=== PATIENT | male | born 1945 | race Caucasian/White ===

== ENCOUNTER 2019-04-18 13:38 | Outpatient (CLI) | payer MEDICARE, SELFPAY ==
--- NOTE | 2019-04-18 | ECHO_ITS ---
Patient Info Name: Marcos Echeverria Age: 73 years : 1945 Gender: Male Ht: 68 in Wt: 200 lbs BSA: 2.11 m2 HR: 88 bpm BP: 123 / 87 mmHg Technical Quality: Good Exam Date: 04/18/2019 2:16 PM Exam Location: [facility] Pulmonary Patient Status: Outpatient Admit Date: 04/18/2019 Staff Ordering Physician: Yunier Domingo DO Product Craftsman: Wai Roque RDCS, RT Attending Provider: Yunier Domingo DO Referring Physician: Jose L ESTRADA; Exam Type: CA echo doppler color flow Study Info Indications I34.0 - Nonrheumatic mitral (valve) insufficiency Complete two-dimensional, color flow and Doppler transthoracic echocardiogram is performed. Summary 1. Left ventricular chamber dimension is normal. 2. Left ventricular systolic function is normal, estimated at 55-60%. 3. There is mildly increased left ventricular wall thickness. 4. The left ventricular diastolic function is indeterminate. 5. Tissue doppler is not performed. 6. Patient is probably in atrial fibrillation. 7. Left atrial chamber dimension is moderately enlarged. 8. Right atrial chamber dimension is moderately enlarged. 9. There is mild aortic valve sclerosis. 10. There is mild aortic valve regurgitation. 11. There is moderate to severe mitral valve regurgitation. 12. There is mild to moderate tricuspid valve regurgitation. 13. No pulmonary hypertension, estimated pulmonary arterial systolic pressure is 31 mmHg. 14. There is mild pulmonic regurgitation. 15. The aortic root size at the sinus of Valsalva is moderately dilated at 4.5 cm. Left Ventricle Patient is probably in atrial fibrillation. Tissue doppler is not performed. Left ventricular chamber dimension is normal. Left ventricular systolic function is normal, estimated at 55-60%. There is mildly increased left ventricular wall thickness. The left ventricular diastolic function is indeterminate. Right Ventricle Right ventricular chamber dimension is normal. Right ventricular systolic function is normal. Left Atria Left atrial chamber dimension is moderately enlarged. Right Atria Right atrial chamber dimension is moderately enlarged. Aortic Valve The aortic valve is trileaflet. There is mild aortic valve sclerosis. There is no aortic valve stenosis. There is mild aortic valve regurgitation. Pulmonic Valve There is mild pulmonic regurgitation. Mitral Valve There is no mitral valve stenosis. There is moderate to severe mitral valve regurgitation. Tricuspid Valve There is mild to moderate tricuspid valve regurgitation. No pulmonary hypertension, estimated pulmonary arterial systolic pressure is 31 mmHg. Pericardium/Pleural There is no pericardial effusion. Inferior Vena Cava Normal inferior vena cava with >50% collapse upon inspiration consistent with normal right atrial pressure, 5 mmHg. Aorta The aortic root size at the sinus of Valsalva is moderately dilated at 4.5 cm. Left Ventricular Outflow Tract Name Value Normal LVOT 2D LVOT Diameter 1.9 cm LVOT Doppler LVOT Peak Gradient 2 mmHg LVOT Mean Gradient 1 mmHg
== END 2019-04-18 13:39 | disposition home or self-care (01) ==
PROVIDERS: PCP Emergency Medicine; Visit Provider Internal Medicine Cardiovascular Disease
DX: I08.3 Combined rheumatic disorders of mitral, aortic and tricuspid valves (principal)
CPT/HCPCS: 93306

== ENCOUNTER 2019-05-09 10:26 | Outpatient (CLI) | payer MEDICARE, SELFPAY ==
--- NOTE | ~2019-05-09 | CT_ITS ---
EXAMINATION: CTA chest DATE: 05/09/2019 11:27 INDICATION: Aortic aneurysm without rupture TECHNIQUE: Computed tomographic angiography (CTA) of the chest was performed with 100 mL Omnipque-350 intravenous contrast. Maximum intensity projection 3D-reconstructions of the aorta and other arterie s were constructed by the technologist on a separate workstation. The dose-length product (DLP) was 1 220.46 mGy-cm. Automated exposure control and iterative reconstruction technique were employed. COMPARISON: 08/19/2018 FINDINGS: The ascending aorta measures 4.0 x 3.8 cm at the level of the main pulmonary artery. There is calcified and noncalcified atherosclerosis of the nondilated descending thoracic aorta. There are at least three areas in the descending aorta where contrast appears to penetrate beyond the intima in to the atherosclerotic plaque. No aortic dissection is identified. There is mild emphysema. There is no pleural effusion or pneumothorax. There is biatrial enlargement of the heart. Calcified coronary a rtery atherosclerosis is noted. There are no pathologically enlarged thoracic lymph nodes. There is a partially imaged endoluminal stent of the abdominal aorta. There is mild thoracic spondylosis. IMPRESSION: 1. Fusiform enlargement of the ascending aorta measuring 4.0 cm at the level of the main pulmonary ar mert. 2. At least three potential areas of penetrating atherosclerotic ulcer of the descending aorta. Reviewed, dictated and finalized at location A. D CANE SCALE CLERK IMPRESSION: 1. Fusiform enlargement of the ascending aorta measuring 4.0 cm at the level of the main pulmonary artery. 2. At least three potential areas of penetrating atherosclerotic ulcer of the d escending aorta.
[2019-05-09 10:55] LABS: Blood Urea Nitrogen 17 mg/dL (8-26); Estimated Glomerular Filt Rate > 60
== END 2019-05-09 10:27 | disposition home or self-care (01) ==
LOC: ANHIMG 10:30
PROVIDERS: PCP Emergency Medicine; Visit Provider Internal Medicine Cardiovascular Disease
DX: I71.9 Aortic aneurysm of unspecified site, without rupture (principal)
CPT/HCPCS: 71275; Q9967

== ENCOUNTER 2020-04-15 12:39 | Outpatient (CLI) | payer MEDICARE, SELFPAY ==
--- NOTE | 2020-04-15 13:02 | ECHO_ITS ---
Patient Info Name: Marcos Echeverria Age: 74 years : 1945 Gender: Male Ht: 68 in Wt: 197 lbs BSA: 2.09 m2 HR: 92 bpm BP: 120 / 88 mmHg Heart Rhythm: Atrial Fibrillation Technical Quality: Good Exam Date: 04/15/2020 1:19 PM Exam Location: [facility] Pulmonary Patient Status: Preadmit Admit Date: 04/10/2020 Staff Ordering Physician: Yunier Domingo DO Patient Placement Coordinator: Lizet Santos RDCS Attending Provider: Yunier Domingo DO Referring Physician: Jose L ESTRADA; Exam Type: CA echo doppler color flow Study Info Indications I34.0 - Nonrheumatic mitral (valve) insufficiency Complete two-dimensional, color flow and Doppler transthoracic echocardiogram is performed. Summary 1. Complete two-dimensional, color flow and Doppler transthoracic echocardiogram is performed. 2. Left ventricular chamber dimension is normal. 3. Left ventricular systolic function is normal, estimated at 60-65%. 4. The left ventricular diastolic function is abnormal. 5. E/e '10 is mildly elevated. 6. Atrial fibrillation. 7. Left atrial chamber dimension is severely enlarged. 8. Right atrial chamber dimension is severely enlarged. 9. There is mild aortic valve sclerosis. 10. There is mild aortic valve regurgitation. 11. There is moderate to severe mitral valve regurgitation. 12. There is mild to moderate tricuspid valve regurgitation. 13. No pulmonary hypertension, estimated pulmonary arterial systolic pressure is 36 mmHg. 14. The aortic root size at the sinus of Valsalva is borderline dilated at 4.1 cm. 15. There is trivial pericardial effusion. Left Ventricle E/e '10 is mildly elevated. Atrial fibrillation. Left ventricular chamber dimension is normal. Left ventricular systolic function is normal, estimated at 60-65%. The left ventricular diastolic function is abnormal. Right Ventricle Right ventricular chamber dimension is normal. Right ventricular systolic function is normal. Left Atria Left atrial chamber dimension is severely enlarged. Right Atria Right atrial chamber dimension is severely enlarged. Aortic Valve The aortic valve is trileaflet. There is mild aortic valve sclerosis. There is no aortic valve stenosis. There is mild aortic valve regurgitation. Pulmonic Valve There is no pulmonic regurgitation. Mitral Valve There is no mitral valve stenosis. There is moderate to severe mitral valve regurgitation. Tricuspid Valve There is mild to moderate tricuspid valve regurgitation. No pulmonary hypertension, estimated pulmonary arterial systolic pressure is 36 mmHg. Pericardium/Pleural There is trivial pericardial effusion. Inferior Vena Cava Normal inferior vena cava with >50% collapse upon inspiration consistent with normal right atrial pressure, 5 mmHg. Aorta The aortic root size at the sinus of Valsalva is borderline dilated at 4.1 cm. Left Ventricular Outflow Tract Name Value Normal LVOT 2D LVOT Diameter 2.0 cm LVOT Doppler LVOT Peak Gradient 2 mmHg LVOT Mean Gradient 1 mmHg LVOT VTI 15 cm
== END 2020-04-15 12:40 | disposition home or self-care (01) ==
PROVIDERS: PCP Emergency Medicine; Visit Provider Internal Medicine Cardiovascular Disease
DX: I34.0 Nonrheumatic mitral (valve) insufficiency (principal); I35.1 Nonrheumatic aortic (valve) insufficiency; I36.1 Nonrheumatic tricuspid (valve) insufficiency
CPT/HCPCS: 93306

== ENCOUNTER 2020-04-16 07:39 | Outpatient (CLI) | payer MEDICARE, SELFPAY ==
--- NOTE | ~2020-04-16 | CT_ITS ---
EXAMINATION: CTA chest DATE: 04/16/2020 08:25 INDICATION: Aortic aneurysm TECHNIQUE: Computed tomography angiography (CTA) of the chest was performed with 100 mL Omnipaque-350 intravenous contrast timed to evaluate the pulmonary arteries. Coronal maximum intensity projection 3D-reconstructions were created by the technologist. Automated exposure control and iterative reconst ruction technique were employed. Exam dose: 632.92 mGy-cm total exam DLP. COMPARISON: 05/09/2019 CTA chest FINDINGS: The ascending aortic diameter measures up to 4.1 cm, relatively stable since 05/09/2019. Stable focal intimal dissection in the left lateral descending thoracic aorta. Cardiomegaly. Prominent coronary artery atherosclerotic calcification. No pericardial or pleural effu shaina. No hilar or mediastinal mass lesion or lymphadenopathy. Abdominal aortic stent. No pulmonary infiltrate or consolidation or pulmonary mass lesion. Prominent degenerative disc disease in the lower cervical spine. Diffuse idiopathic skeletal hyperostosis of the thoracic spine. No suspicious osteolytic or osteoblastic lesions are noted. 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 Reviewed, dictated and finalized at location A. TER MACHINE IMPRESSION: Stable appearance of the thoracic aorta compared to; stabl e ascending aortic 4.1 cm aneurysm and stable focal left lateral descending tho racic aortic dissection
[2020-04-16 08:17] LABS: Estimated Glomerular Filt Rate > 60
== END 2020-04-16 07:40 | disposition home or self-care (01) ==
PROVIDERS: PCP Emergency Medicine; Visit Provider Internal Medicine Cardiovascular Disease
DX: I71.9 Aortic aneurysm of unspecified site, without rupture (principal)
CPT/HCPCS: 71275; Q9967

== ENCOUNTER 2021-05-12 12:40 | Outpatient (CLI) | payer MEDICARE, SELFPAY ==
--- NOTE | 2021-05-12 12:51 | ECHO_ITS ---
Patient Info Name: Marcos Echeverria Age: 75 years : 1945 Gender: Male Ht: 68 in Wt: 193 lbs BSA: 2.07 m2 HR: 92 bpm BP: 126 / 89 mmHg Heart Rhythm: Atrial Fibrillation Technical Quality: Good Exam Date: 05/12/2021 1:09 PM Exam Location: [facility] Pulmonary Patient Status: Outpatient Admit Date: 05/12/2021 Staff Ordering Physician: Yunier Domingo DO Field Map Technician: Lizet Santos RDCS Attending Provider: Yunier Domingo DO Referring Physician: Jose L ESTRADA; Exam Type: CA echo doppler color flow Study Info Indications I34.0 - Nonrheumatic mitral (valve) insufficiency Complete two-dimensional, color flow and Doppler transthoracic echocardiogram is performed. Summary 1. Complete two-dimensional, color flow and Doppler transthoracic echocardiogram is performed. 2. Left ventricular chamber dimension is normal. 3. Left ventricular systolic function is normal, estimated at 60-65%. 4. The left ventricular diastolic function is normal. 5. E/e' 9 is minimally elevated. 6. Atrial fibrillation. 7. Right ventricular systolic function is reduced based on abnormal TAPSE 1.3 cm. 8. Left atrial chamber dimension is severely enlarged. 9. Right atrial chamber dimension is severely enlarged. 10. There is moderate aortic valve sclerosis. 11. There is mild aortic valve regurgitation. 12. The mitral valve has moderately calcified annulus. 13. There is moderate mitral valve regurgitation. 14. There is moderate tricuspid valve regurgitation. 15. Mild pulmonary hypertension, estimated pulmonary arterial systolic pressure is 40 mmHg. Left Ventricle E/e' 9 is minimally elevated. Atrial fibrillation. Left ventricular chamber dimension is normal. Left ventricular systolic function is normal, estimated at 60-65%. The left ventricular diastolic function is normal. Right Ventricle Right ventricular systolic function is reduced based on abnormal TAPSE 1.3 cm. Right ventricular chamber dimension is not well visualized. Left Atria Left atrial chamber dimension is severely enlarged. Right Atria Right atrial chamber dimension is severely enlarged. Aortic Valve The aortic valve is trileaflet. There is moderate aortic valve sclerosis. There is no aortic valve stenosis. There is mild aortic valve regurgitation. Pulmonic Valve There is no pulmonic regurgitation. Mitral Valve The mitral valve has moderately calcified annulus. There is no mitral valve stenosis. There is moderate mitral valve regurgitation. Tricuspid Valve There is moderate tricuspid valve regurgitation. Mild pulmonary hypertension, estimated pulmonary arterial systolic pressure is 40 mmHg. Pericardium/Pleural There is no pericardial effusion. Inferior Vena Cava Normal inferior vena cava with >50% collapse upon inspiration consistent with normal right atrial pressure, 5 mmHg. Aorta The aortic root size at the sinus of Valsalva is normal. Left Ventricular Outflow Tract Name Value Normal LVOT 2D LVOT Diameter 2.0 cm LVOT Doppler LVOT Peak Gradient 2 mmHg LVOT Mean Gradient 1 mmHg
== END 2021-05-12 12:41 | disposition home or self-care (01) ==
LOC: ANHCARD 12:43
PROVIDERS: PCP Emergency Medicine; Visit Provider Internal Medicine Cardiovascular Disease
DX: I08.3 Combined rheumatic disorders of mitral, aortic and tricuspid valves (principal); I27.20 Pulmonary hypertension, unspecified
CPT/HCPCS: 93306

== ENCOUNTER 2021-07-03 09:56 | Outpatient (CLI) | payer MEDICARE, SELFPAY ==
--- NOTE | ~2021-07-03 | CT_ITS ---
EXAMINATION:CT lung screening DATE: 07/03/2021 10:15 INDICATION: Personal history of nicotine dependence. TECHNIQUE: Computed tomography (CT) of the chest was performed without intravenous contrast. Automate d exposure control and iterative reconstruction technique were employed. The dose-length product (DLP ) was 154.94 mGy-cm. COMPARISON: Chest CT 04/16/2020 FINDINGS: There is mild emphysema. There is mild atelectasis in the lungs. No pleural effusion. There is left atrial enlargement of the heart. There are coronary artery calcifications. No pericardial ef fusion. There is ectasia of ascending aorta measuring 4.2 cm. There is a stent graft in abdominal aor ta. There is mild thoracic spondylosis. IMPRESSION: 1. Lung-RADS category 1: Negative. Continue annual screening with noncontrast low-dose chest CT in 12 months. Reviewed, dictated and finalized at location B. IMPRESSION: 1. Lung-RADS category 1: Negative. Continue annual screening with noncontrast l ow-dose chest CT in 12 months.
== END 2021-07-03 09:57 | disposition home or self-care (01) ==
PROVIDERS: PCP Emergency Medicine; Visit Provider Emergency Medicine
DX: Z12.2 Encounter for screening for malignant neoplasm of respiratory organs (principal); Z87.891 Personal history of nicotine dependence
CPT/HCPCS: 71271

== ENCOUNTER 2021-10-27 15:03 | Inpatient (IN) | payer MEDICARE, SELFPAY ==
[2021-10-27] VITALS (16 sets, daily range): BP systolic 101–130; BP diastolic 60–83; PULSE 68–87; RESP 14–23; TEMP 36.1–36.4; O2SAT 97–100; BMI 30.2
--- NOTE | ~2021-10-27 | XR_ITS ---
XR abdomen/kub 1V 10/28/2021 13:17 Indication: Gross hematuria Procedure: KUB Comparison: 07/29/2014 Findings: Nonobstructive bowel gas pattern. There is an endovascular stent in the abdominal aorta and iliac arteries. There is residual contrast in the renal collecting systems bilaterally which are non dilated. Nonobstructive bowel gas pattern. Moderate colonic fecal loading. Impression: 1: No acute abdominal abnormality. Reviewed, dictated and finalized at location B. Impression: 1: No acute abdominal abnormality.
--- NOTE | ~2021-10-27 | CT_ITS ---
EXAMINATION: CT abdomen pelvis wo/w con DATE: 10/28/2021 12:00 INDICATION: Gross hematuria TECHNIQUE: Computed tomography (CT) of the abdomen and pelvis was performed without intravenous contr ast. CT of the abdomen and pelvis was then performed with a total of 130 mL Omnipaque 350 intravenous contrast using a double-bolus technique for simultaneous opacification of the renal parenchyma and r enal collecting system. The dose-length product (DLP) was 1004.81 mGy-cm. Automated exposure control and iterative reconstruction technique were employed. COMPARISON: None FINDINGS: Minimal dependent atelectasis is present in the lung bases. There is biatrial enlargement o f the heart. The liver, spleen, pancreas, gallbladder, and adrenal glands are normal. No stones are i dentified in the kidneys, ureters, or bladder. There is no hydronephrosis or hydroureter. Hypoattenua ting lesions of the left kidney measuring up to 6 mm are too small to characterize but likely represe nt cysts. The distal right ureter is not well opacified however no obstructing lesion is identified. The left ureter is unremarkable. No suspicious urothelial lesions are identified. Surgical changes ar e noted in the prostate. No pathologically enlarged abdominal or pelvic lymph nodes are identified. T here is no free intraperitoneal gas or evidence of bowel obstruction. There is a 3.6 cm fusiform infr arenal abdominal aortic aneurysm status post endoluminal stent graft repair. There is moderate disten tion of the urinary bladder. There is severe lumbar spondylosis. A fat-containing umbilical hernia is noted. IMPRESSION: 1. No CT correlate for the patient's symptoms. No suspicious renal or urothelial lesion identified. Reviewed, dictated and finalized at location A. IMPRESSION: 1. No CT correlate for the patient's symptoms. No suspicious renal or urothelia l lesion identified.
--- NOTE | ~2021-10-27 | XR_ITS ---
EXAMINATION: XR chest 2V 10/27/2021 15:58 INDICATION: Bilateral lower extremity swelling PROCEDURE: 2 view chest COMPARISON: No prior studies for comparison. FINDINGS: The lungs are clear. The cardiomediastinal silhouette is within normal limits. There are no pleural effusions. There is no pneumothorax suspected. IMPRESSION: 1: NO ACUTE CARDIOPULMONARY DISEASE. Reviewed, dictated and finalized at location B.
--- NOTE | 2021-10-27 15:31 | ECG_ITS ---
Measurements Intervals [place] Rate: 85 P: IA: 0 QRS: -47 QRSD: 100 T: 81 QT: 369 QTc: 439 Interpretive Statements ATRIAL FIBRILLATION LEFT AXIS DEVIATION [QRS AXIS < -30] NONSPECIFIC ST & T-WAVE ABNORMALITY ABNORMAL ECG NO PREVIOUS ECG AVAILABLE FOR COMPARISON Electronically Signed On 10-28-2021 8:46:27 CDT by Flavio Hawley M.D.
[2021-10-27 15:46] LABS: Basophils Percent Auto 0.6 % (0.2-1.2); Eosinophils Percent Auto 0.6 % (0-4.4); Hematocrit 40.9 % (42.0-52.0); Hemoglobin 14.7 g/dL (14.0-18.0); Immature Granulocyte Absolute 0.03 K/mm3 (0.00-0.031); Immature Granulocyte Percent A 0.4 % (0-0.5); Lymphocytes Absolute Auto 1.58 K/mm3 (0.9-3.2); Lymphocytes Percent Auto 21.8 % (18.3-44.2); Mean Corpuscular HGB Conc 35.9 g/dl (32-36); Mean Corpuscular Volume 88.9 fl (80-100); Mean Platelet Volume 9.3 fl (7.4-10.4); Monocytes Absolute Auto 0.6 K/mm3 (0.1-0.6); Monocytes Percent Auto 8.8 % (2.6-8.5); Neutrophils Absolute Auto 4.9 K/mm3 (1.3-6.7); Neutrophils Percent Auto 67.8 % (45.5-73.1); Platelet Count Result 152 k/mm3 (150-375); Red Cell Distribution Width 13.9 % (11.5-14.5); White Blood Count 7.3 K/mm3 (4.5-10.0)
[2021-10-27 16:06] LABS: Alanine Aminotransferase 21 U/L (6-50); Albumin Level 4.3 g/dL (3.5-5.1); Alkaline Phosphatase 57 U/L (38-126); Anion Gap 10 mmol/L (8-16); Aspartate Amino Transferase 35 U/L (17-59); Bilirubin,Total 1.3 mg/dL (0.2-1.3); Blood Urea Nitrogen 15 mg/dL (9-20); Calcium 8.6 mg/dL (8.4-10.2); Carbon Dioxide 28 mmol/L (22-30); Chloride 83 mmol/L (98-107); Estimated CRCL calculation 62 ml/min; Estimated Glomerular Filt Rate > 60; Glucose 118 mg/dL (65-110); Potassium 4.2 mmol/L (3.4-5.0); Sodium 121 mmol/L (137-145)
--- NOTE | 2021-10-27 16:08 | PC.NURSE ---
Dr. Barclay at bedside to assess pt.
[2021-10-27 16:18] LABS: NT Pro B Type Natriuretic Pept 2070 pg/mL (5-100); Troponin I < 0.012 ng/mL (0.000-0.034)
--- NOTE | 2021-10-27 16:23 | ED.GENADULT ---
HPI - General Adult General Chief complaint: Extremity Problem,Nontraumatic Stated complaint: Ankles are swollen Time Seen by Provider: 10/27/21 15:58 Source: RN notes reviewed History of Present Illness HPI narrative: Patient presents emergency department from home for lower extremity edema. Patient states edema has been ongoing for the past 3 days. States that he has had no fevers or chills he denies having chest pain shortness of breath he denies any history of heart failure states he does have a history of atrial fibrillation for which she sees Dr. Domingo and is currently on apixaban. He states he has been drinking increased water over the past several days as he is on oxybutynin from his urologist Dr. Nielson Related Data Home Medications Medication Instructions Recorded Confirmed flaxseed oil 1,000 mg capsule See Rx Instructions .Route .COMPLEX 04/23/19 08/22/21 cholecalciferol (vitamin D3) 50 2,000 unit PO DAILY 01/22/20 08/22/21 mcg (2,000 unit) capsule cyanocobalamin (vitamin B-12) 250 See Rx Instructions .Route .COMPLEX 01/22/20 08/22/21 mcg tablet (Vitamin B-12) Allergies Allergy/AdvReac Type Severity Reaction Status Date / Time ibuprofen Allergy Unknown Unknown Verified 08/22/21 09:56 lisinopril AdvReac Severe tongue and Verified 08/22/21 09:56 lip swelling Review of Systems Review of Systems: Gen.: Denies fevers or chills ENT: Denies congestion Respiratory: Denies shortness of breath or cough CV: Denies chest pain or palpitations GI: Denies abdominal pain nausea, emesis or diarrhea Musculoskeletal: Denies back pain or muscle pain reports leg swelling Neuro: Denies numbness, tingling, weakness or focal weakness Skin: Denies rash Except as documented, all other systems reviewed and negative [facility] Past Medical History Medical History Abnormal CT scan, chest Abnormal EKG Adenomatous colon polyp Afib Atherosclerotic heart disease of [place] coronary artery with angina pectoris B12 deficiency Bowel habit changes Chronic atrial fibrillation Colon cancer screening Enlarged prostate without lower urinary tract symptoms (luts) Essential (primary) hypertension Gastro-esophageal reflux disease without esophagitis HTN (hypertension) Hyperglycemia Incontinence of feces Lung nodule Mixed hyperlipidemia Non-rheumatic mitral regurgitation Other hyperlipidemia Overweight (04/22/15) Positive colorectal cancer screening using Cologuard test Smoking Tobacco abuse Vitamin D deficiency Surgical History Surgical History History of aortic aneurysm repair History of cardiac cath History of endovascular stent graft for abdominal aortic aneurysm Family History Family History Father Acute myocardial infarction Social History Social History Smoking packs per day: 1.5 Smoking cigarettes per day: 30.0 Years smoked: 54 Smoking pack-years: 81.00 Smoking status: Never smoker Additional smoking assessment comments: quit in 2019 Alcohol intake: former Exam Narrative: APPEARANCE: No acute distress, nontoxic, resting in bed EYES: EOMI HEENT: Normocephalic, atraumatic, OMM RESPIRATORY: No respiratory distress Clear to auscultation bilaterally with no rhonchi wheezing or rales. CARDIOVASCULAR: Regular rate and rhythm without murmurs rubs or gallops. ABDOMINAL: Soft, nontender, nondistended, no rebound or guarding MUSCULOSKELETAl: Moves all extremities. No clubbing, cyanosis 3+ edema of the bilateral lower extremities bilateral dorsalis pedis pulse 2+ NEURO: Awake and alert. Following commands, speech normal, no focal deficits SKIN:: Warm, dry. No rashes lesions or abrasions PSYCHIATRIC: Normal affect/mood, Course Course Emergency Course: Discussed with JACKER FEEDER
[2021-10-27 16:27] LABS: Magnesium 1.3 mg/dL (1.6-2.3)
[2021-10-27 16:58] LABS: INR 1.5; Partial Thromboplastin Time 37.5 SECONDS (22.3-36.8); Prothrombin Time 17.9 Seconds (11.1-14.7)
[2021-10-27] MEDS: MAGNESIUM SULF 2 GM/WATER 50ML 2 GM/50 ML BAG IVPB (17:24)
[2021-10-27 20:18] LABS: Appearance Urine Clear (Clear); Bilirubin Urine Negative (Negative); Blood Urine 1+ (Negative); Color Urine Yellow (Yellow); Glucose Urine UA Negative (Negative); Ketones Urine Negative (Negative); Leukocyte Esterase Ur 1+ LEU/UL (NEGATIVE); Nitrate Urine Negative (Negative); Protein Urine Trace mg/dL (Negative); Specific Grav Ur 1.015 (1.001-1.035); Urobilinogen Urine 0.2 mg/dL (<2.0)
[2021-10-27 20:22] LABS: Mucus Urine Rare /lpf; WBC Urine 16-20 /hpf (0-3)
[2021-10-27 20:37] LABS: Add Urine Microscopic? YES
[2021-10-27 21:03] LABS: Troponin I 0.015 ng/mL (0.000-0.034)
[2021-10-27 22:14] LABS: Troponin I 0.015 ng/mL (0.000-0.034)
--- NOTE | 2021-10-27 23:55 | ADMGEN ---
This patient, Marcos Echeverria, was admitted to Medical Room 242-. Patient/family oriented to hospital policies and general routines including ID bracelet, bed and alarms, visiting hours, pain management, procedures, bathroom and other care routines, personal items, smoking policy, room service/diet, and visiting hours. Information on how to activate the Rapid Response Team has been discussed. Patient/Family are encouraged to report perceived risks to care and to ask questions if they do not understand what they are told or what they should do.
[2021-10-28] VITALS (11 sets, daily range): BP systolic 104–121; BP diastolic 58–78; PULSE 66–121; RESP 18–21; TEMP 36.6–36.9; O2SAT 98–100
--- NOTE | 2021-10-28 00:12 | PM.IMHP ---
H&P: HPI History of Present Illness Date/Time: 10/28/21 00:12 Chief Complaint: peripheral edema Narrative: this is a 76-year-old male patient who came to the emergency room from home with complaints of lower extremity edema. The patient stated that he has BPH and he was recently started on oxybutynin. The patient stated that he has been drinking lots of water because it dries out his mouth. He stated that he had an echo back in April and was told that it was great knee does not have congestive heart failure. The patient denies any fever chills or any chest pain or shortness of breath. He denies any history of congestive heart failure. He does have a history of atrial fibrillation is on anticoagulation. The patient stated that he has been drinking lots of water. Patient is also on amlodipine. I explained to him that the oxybutynin could cause urinary retention. The patient stated that they did a postvoid residual and told him he was not retaining any fluid. The patient recently had a UTI and had some blood in his urine. The patient stated something about getting a CT of his abdomen and pelvis. The patient continues to have 1+ blood 1+ urine leukocyte esterase and wbc's 16-20. Chest x-ray was read as no acute cardiopulmonary disease and the cardio mediastinal silhouette is within normal limits. His magnesium was 1.3 and he was given magnesium supplement. He did have a run of approximately 5 beats of SVT while I was in the room withThe patient he was asymptomatic. He does have a history of atrial fibrillation and sees . he is on anticoagulation. The patient is being admitted to observation status on the date of service of 10/28/2021. Review of Systems Review of Systems: See HPI All systems reviewed & are unremarkable except as noted in HPI and below Constitutional: Constitutional: Reports as per HPI and Reports no additional constitutional complaints Eyes: Eyes: Reports as per HPI and Reports no additional eye complaints ENT: Reports system reviewed and no additional complaints, except as documented and Reports Normal hearing present Cardiovascular: Cardiovascular: Reports no additional cardiovascular complaints Respiratory: Respiratory: Reports no additional respiratory complaints and Reports no additional respiratory complaints Gastrointestinal: Gastrointestinal: Reports as per HPI and Reports no additional gastrointestinal complaints Musculoskeletal: Musculoskeletal: Reports no additional musculoskeletal complaints Integumentary/Breasts: Skin/Breast: Reports system reviewed and no additional complaints, except as docu and Reports as per HPI Neurologic: Reports system reviewed and no additional complaints, except as documented, Reports as per HPI and Reports Normal hearing present Psychiatric: Psychiatric: Reports no additional psychiatric complaints and Reports as per HPI Endocrine: Endocrine: Reports no additional endocrine complaints Hematologic/Lymphatic: Hematologic/Lymphatic: Reports no additional hematologic/lymphatic complaints Allergic/Immunologic: Allergic/Immunologic: Reports no additional allergic/immunologic complaints [facility] Past Medical History Medical History (Updated 10/28/21 @ 00:37 by Silva Brewster NP) Abnormal CT scan, chest Abnormal EKG Adenomatous colon polyp Afib Atherosclerotic heart disease of [place] coronary artery with angina pectoris B12 deficiency Bowel habit changes Chronic atrial fibrillation Colon cancer screening Enlarged prostate without lower urinary tract symptoms (luts) Essential (primary) hypertension Gastro-esophageal reflux disease without esophagitis HTN (hypertension) Hyperglycemia Incontinence of feces Lung nodule Mixed hyperlipidemia Non-rheumatic mitral regurgitation Other hyperlipidemia Overweight (04/22/15) Positive colorectal cancer screening using Cologuard test Smoking Tobacco abuse Vitamin D deficiency Surgical History Surgical History
[2021-10-28 01:04] LABS: Anion Gap 8 mmol/L (8-16); Blood Urea Nitrogen 14 mg/dL (9-20); Calcium 8.8 mg/dL (8.4-10.2); Carbon Dioxide 29 mmol/L (22-30); Chloride 86 mmol/L (98-107); Estimated CRCL calculation 83 ml/min; Estimated Glomerular Filt Rate > 60; Glucose 95 mg/dL (65-110); Magnesium 1.8 mg/dL (1.6-2.3); Potassium 3.8 mmol/L (3.4-5.0); Sodium 123 mmol/L (137-145)
[2021-10-28 03:19] LABS: Sodium Urine Random 23 meq/L
[2021-10-28 06:12] LABS: Basophils Percent Auto 0.7 % (0.2-1.2); Eosinophils Absolute Auto 0.1 K/mm3 (0-0.3); Immature Granulocyte Absolute 0.03 K/mm3 (0.00-0.031); Immature Granulocyte Percent A 0.5 % (0-0.5); Immature Platelet Fraction Pct 3.6 % (0.9-11.2); Lymphocytes Absolute Auto 1.52 K/mm3 (0.9-3.2); Lymphocytes Percent Auto 25.8 % (18.3-44.2); Mean Corpuscular Hemoglobin 31.6 pg (26-34); Mean Corpuscular Volume 90.3 fl (80-100); Mean Platelet Volume 9.9 fl (7.4-10.4); Monocytes Absolute Auto 0.5 K/mm3 (0.1-0.6); Monocytes Percent Auto 8.8 % (2.6-8.5); Neutrophils Absolute Auto 3.7 K/mm3 (1.3-6.7); Neutrophils Percent Auto 63.2 % (45.5-73.1); Platelet Count Result 131 k/mm3 (150-375); Red Blood Count 4.43 M/mm3 (4.6-6.20); Red Cell Distribution Width 13.7 % (11.5-14.5); White Blood Count 5.9 K/mm3 (4.5-10.0)
[2021-10-28 06:31] LABS: Alanine Aminotransferase 17 U/L (6-50); Albumin Level 3.7 g/dL (3.5-5.1); Alkaline Phosphatase 45 U/L (38-126); Anion Gap 8 mmol/L (8-16); Aspartate Amino Transferase 35 U/L (17-59); Bilirubin,Total 1.3 mg/dL (0.2-1.3); Blood Urea Nitrogen 12 mg/dL (9-20); Calcium 8.5 mg/dL (8.4-10.2); Carbon Dioxide 29 mmol/L (22-30); Chloride 90 mmol/L (98-107); Estimated CRCL calculation 73 ml/min; Estimated Glomerular Filt Rate > 60; Glucose 87 mg/dL (65-110); Potassium 4.3 mmol/L (3.4-5.0); Sodium 127 mmol/L (137-145)
--- NOTE | 2021-10-28 06:49 | PC.NURSE ---
10/27/2021 at 2300: notified solis Brewster of 2 episodes of 8-10 beat run of vtach. orders recieved. mag level ordered. results pending.
[2021-10-28 06:57] LABS: Magnesium 1.8 mg/dL (1.6-2.3)
--- NOTE | 2021-10-28 07:56 | P.PNIM_ITS ---
Progress Note: A&P Assessment and Plan (1) Acute hyponatremia: Code(s): E87.1 - Hypo-osmolality and hyponatremia Status: Acute Assessment and Plan: Likely secondary to water intoxication. * fluid restriction 1800 mL/day. * Check TSH * Urine sodium 23 and urine osmolarity pending. * Trend sodium level- 121 to 123 to 127 to 125 today. * Will add gentle NS fluids. * Monitor I/O. (2) Bilateral edema of lower extremity: Code(s): R60.0 - Localized edema Status: Acute Assessment and Plan: C/o BLE edema present on admission. * Hold Norvasc * Hold oxybutynin. * Continue Fluid restriction * BNP elevated mildly elevated. 04/2021 Echo with normal LV systolic and diastolic function, EF 60%, moderate MR/TR and mild pulmonary hypertension. * Elevate BLE (3) Hypomagnesemia: Code(s): E83.42 - Hypomagnesemia Status: Acute Assessment and Plan: Magnesium level 1.3 on admission. Given 2 grams mag sulfate IVPB x1 in ED. * Mag level 1.8 today. Patient with multiple asymptomatic runs of SVT. * Give additional Mag sulfate 1 gram IVPB x1. Goal >2 (4) Dyslipidemia: Code(s): E78.5 - Hyperlipidemia, unspecified Status: Chronic Assessment and Plan: Continue with simvastatin. (5) CAD (coronary artery disease): Qualifiers: Associated angina: without angina Coronary Disease-Associated Artery/Lesion type: [place] artery [place] vs. transplanted heart: [place] heart Qualified Code(s): I25.10 - Atherosclerotic heart disease of [place] coronary artery without angina pectoris Code(s): I25.10 - Atherosclerotic heart disease of [place] coronary artery without angina pectoris Status: Chronic Assessment and Plan: Continue atenolol, simvastatin. No chest pain. (6) HTN (hypertension): Qualifiers: Hypertension type: essential hypertension Qualified Code(s): I10 - Essential (primary) hypertension Code(s): I10 - Essential (primary) hypertension Status: Chronic Assessment and Plan: Stable. Continue losartan and atenolol at home doses. Hold amlodipine as above. (7) Afib: Qualifiers: Atrial fibrillation type: paroxysmal Qualified Code(s): I48.0 - Paro xysmal atrial fibrillation Code(s): I48.91 - Unspecified atrial fibrillation Status: Chronic Assessment and Plan: H/O chronic afib. * Monitor telemetry. * Continue with apixaban * Continue atenolol. Rate controlled 60-80 bpm. (8) BPH (benign prostatic hyperplasia): Code(s): N40.0 - Benign prostatic hyperplasia without lower urinary tract symptoms Status: Chronic Assessment and Plan: UA with 1+ blood, 1+ leukocytes, and 16-20 WBC. Urine culture pending. Reportedly, recently treated with antibiotics and evaluation for gross hematuria. * continue with Flomax * urology consult for hematuria microscopically and chronic back. * Hold oxybutynin which caused him to be thirsty and drink excessively Plan CODE STATUS: FULL CODE Disposition: Home Time Spent With Patient Time with patient: 15 - 25 minutes Subjective Date/time seen: 10/28/21 07:56 Patient is a 76 yo male with medical history of BPH recently started on oxybutynin, afib on chronic anticoagulation, hypertension, mitral regurgitation, and CAD. He presented to the ED for evaluation of lower extremity edema. Patient found sitting up in bed. He has no new complaints. The swelling t
--- NOTE | 2021-10-28 07:56 | PM.IMPN ---
Progress Note: A&P Assessment and Plan (1) Acute hyponatremia: Code(s): E87.1 - Hypo-osmolality and hyponatremia Status: Acute Assessment and Plan: Likely secondary to water intoxication. fluid restriction 1800 mL/day. Check TSH Urine sodium 23 and urine osmolarity pending. Trend sodium level- 121 to 123 to 127 to 125 today. Will add gentle NS fluids. Monitor I/O. (2) Bilateral edema of lower extremity: Code(s): R60.0 - Localized edema Status: Acute Assessment and Plan: C/o BLE edema present on admission. Hold Norvasc Hold oxybutynin. Continue Fluid restriction BNP elevated mildly elevated. 04/2021 Echo with normal LV systolic and diastolic function, EF 60%, moderate MR/TR and mild pulmonary hypertension. Elevate BLE (3) Hypomagnesemia: Code(s): E83.42 - Hypomagnesemia Status: Acute Assessment and Plan: Magnesium level 1.3 on admission. Given 2 grams mag sulfate IVPB x1 in ED. Mag level 1.8 today. Patient with multiple asymptomatic runs of SVT. Give additional Mag sulfate 1 gram IVPB x1. Goal >2 (4) Dyslipidemia: Code(s): E78.5 - Hyperlipidemia, unspecified Status: Chronic Assessment and Plan: Continue with simvastatin. (5) CAD (coronary artery disease): Qualifiers: Associated angina: without angina Coronary Disease-Associated Artery/Lesion type: [place] artery [place] vs. transplanted heart: [place] heart Qualified Code(s): I25.10 - Atherosclerotic heart disease of [place] coronary artery without angina pectoris Code(s): I25.10 - Atherosclerotic heart disease of [place] coronary artery without angina pectoris Status: Chronic Assessment and Plan: Continue atenolol, simvastatin. No chest pain. (6) HTN (hypertension): Qualifiers: Hypertension type: essential hypertension Qualified Code(s): I10 - Essential (primary) hypertension Code(s): I10 - Essential (primary) hypertension Status: Chronic Assessment and Plan: Stable. Continue losartan and atenolol at home doses. Hold amlodipine as above. (7) Afib: Qualifiers: Atrial fibrillation type: paroxysmal Qualified Code(s): I48.0 - Paroxysmal atrial fibrillation Code(s): I48.91 - Unspecified atrial fibrillation Status: Chronic Assessment and Plan: H/O chronic afib. Monitor telemetry. Continue with apixaban Continue atenolol. Rate controlled 60-80 bpm. (8) BPH (benign prostatic hyperplasia): Code(s): N40.0 - Benign prostatic hyperplasia without lower urinary tract symptoms Status: Chronic Assessment and Plan: UA with 1+ blood, 1+ leukocytes, and 16-20 WBC. Urine culture pending. Reportedly, recently treated with antibiotics and evaluation for gross hematuria. continue with Flomax urology consult for hematuria microscopically and chronic back. Hold oxybutynin which caused him to be thirsty and drink excessively Plan CODE STATUS: FULL CODE Disposition: Home Time Spent With Patient Time with patient: 15 - 25 minutes Subjective Date/time seen: 10/28/21 07:56 Patient is a 76 yo male with medical history of BPH recently started on oxybutynin, afib on chronic anticoagulation, hypertension, mitral regurgitation, and CAD. He presented to the ED for evaluation of lower extremity edema. Patient found sitting up in bed. He has no new complaints. The swelling to his legs is improved today. He denies anorexia, nausea, vomiting, diarrhea, or MOORE. His urine has been clear today. Review of Systems Review of Systems: All systems reviewed & are unremarkable except as noted in HPI and below Exam Narrative: General: No acute distress.? Well-developed adult male sitting up in bed. Mental Status/Psych: AAOx4. Neutral mood and affect. Cooperative with examination. Clear and appropriate speech. Skin: Skin fair, warm, and dry w
[2021-10-28] MEDS: MAGNESIUM SULF 1 GM/D5W 100 ML 1 GM/100 ML BAG IVPB (10:26)
[2021-10-28] MEDS: APIXABAN 5 MG TABLET PO ×2 (10:27→17:48)
[2021-10-28] MEDS: atenoloL 25 MG TABLET BY MOUTH (10:27)
[2021-10-28] MEDS: LOSARTAN POTASSIUM 50 MG TABLET PO (10:27)
[2021-10-28] MEDS: SIMVASTATIN 20 MG TABLET 40 MG BY MOUTH (10:29)
[2021-10-28] MEDS: TAMSULOSIN HCL 0.4 MG CAPSULE PO (10:29)
[2021-10-28 10:41] LABS: Sodium 125 mmol/L (137-145)
--- NOTE | 2021-10-28 12:44 | WPDURCON ---
Assessment and Plan Assessment and plan (1) BPH (benign prostatic hyperplasia): Code(s): N40.0 - Benign prostatic hyperplasia without lower urinary tract symptoms Status: Chronic Assessment and Plan: Continue Tamsulosin. PVR in the office on 10/24/21 was 156cc, no concern for retention. No bladder distention or hydronephrosis noted on CT scan from today 10/28/21. (2) Gross hematuria: Code(s): R31.0 - Gross hematuria Status: Acute Assessment and Plan: Urine Culture from the office on 10/24/21 negative. Repeat culture pending from admission. CT scan with and without contrast of the abdomen and pelvis was urologically normal. Follow up for a cystoscopy outpoatient with Dr. Nielson as planned. I suspect [place] could be contributing, as he has no stones, renal masses or infections. NO further evaluation at this time. (3) OAB (overactive bladder): Code(s): N32.81 - Overactive bladder Status: Acute Plan Ok to stay off of Oxybutynin d/t it causing excessive thirst. He is very anxious about his urinary pattern, however I assured him that he empties properly, and that the Oxybutynin spread out his frequency as it was supposed to and that urinating every 6-7 hours is ok as long as he is emptying and not experiencing incontinence. He still seems anxious about this, although I continued to assure him that his bladder functions normally. If OAB becomes a problem again, I would recommend trying Gemtesa or Myrbetriq as they have a smaller side effect profile. Urology Consult Note HPI Date Seen: 10/28/21 Time Seen: 09:00 Requesting Physician: Tal Puentes MD Primary Care Provider: Tal Olsen MD Consult Narrative Reason for consult: Gross Hematuria, OAB/BPH Narrative: Marcos Echeverria is a 76 year old male who presented to the ER yesterday with c/o bilateral lower extremity edema x 3 days. We were asked to see him to evaluate his OAB since he was not tolerating his Oxybutynin d/t dry mouth and needing to drink more fluids excessively as well as hematuria. He was seen in the office on 10/24/21 for gross hematuria and also c/o OAB symptoms at that time. His PVR at the visit was 156cc via bladder scan and his urine culture from 10/24/21 was negative. He was scheduled to have a CT scan as an outpatient and to follow up with Dr. Nielson in 12/04 for a Cystoscopy to further evaluate the bladder. He remains on Tamsulosin but is very bothered by the fact that he only urinates every 6-7 hours during the daytime. He states that nocturia is not problematic for him and he doesn't experience incontinence. He is also on Eliquis at this time. His WBC is 5.9, creatinine is 0.80, urine culture from the hospital is pending and his Oxybutynin was stopped d/t it causing dry mouth and excessive thirst. I ordered a CT scan since he is hospitalized to further evaluate his hematuria, which shows no abnormalities in the upper urinary tracts. Review of Systems Cardiovascular: Cardiovascular: Denies chest pain Respiratory: Respiratory: Denies no additional respiratory complaints Genitourinary: Genitourinary: Denies hematuria, Denies dysuria, Denies flank pain, Denies urinary frequency, Denies urinary hesitancy, Denies urinary incontinence and Denies urinary urgency [facility] Past Medical History Medical History Abnormal CT scan, chest Abnormal EKG Adenomatous colon polyp Afib Atherosclerotic heart disease of [place] coronary artery with angina pectoris B12 deficiency Bowel habit changes Chronic atrial fibrillation Colon cancer screening Enlarged prostate without lower urinary tract symptoms (luts) Essential (primary) hypertension Gastro-esophageal reflux disease without esophagitis HTN (hypertension) Hyperglycemia Incontinence of feces Lung nodule Mixed hyperlipidemia Non-rheumatic mitral regurgitation Other hyperlipidemia Overweight (04/22
[2021-10-28] MEDS: atenoloL 50 MG TABLET PO (13:35)
[2021-10-28] MEDS: SODIUM CHLORIDE 0.9% IV 1,000 ML 100 ML IV CONT (13:38)
[2021-10-28 16:14] LABS: Sodium 126 mmol/L (137-145)
[2021-10-29] VITALS (11 sets, daily range): BP systolic 115–141; BP diastolic 74–86; PULSE 74–130; RESP 14–21; TEMP 36.1–36.9; O2SAT 98–100
[2021-10-29] MEDS: SODIUM CHLORIDE 0.9% IV 1,000 ML 100 ML IV CONT ×2 (00:08→11:38)
[2021-10-29 09:03] LABS: Hematocrit 42.5 % (42.0-52.0)
[2021-10-29] MEDS: SIMVASTATIN 20 MG TABLET 40 MG BY MOUTH (09:26)
[2021-10-29] MEDS: TAMSULOSIN HCL 0.4 MG CAPSULE PO (09:26)
[2021-10-29] MEDS: atenoloL 25 MG TABLET 75 MG BY MOUTH (09:27)
[2021-10-29 09:28] LABS: Anion Gap 6 mmol/L (8-16); Blood Urea Nitrogen 11 mg/dL (9-20); Calcium 8.5 mg/dL (8.4-10.2); Carbon Dioxide 29 mmol/L (22-30); Chloride 92 mmol/L (98-107); Estimated CRCL calculation 83 ml/min; Estimated Glomerular Filt Rate > 60; Glucose 95 mg/dL (65-110); Potassium 4.1 mmol/L (3.4-5.0); Sodium 127 mmol/L (137-145)
[2021-10-29] MEDS: CYANOCOBALAMIN 250 MCG TABLET BY MOUTH (09:28)
[2021-10-29] MEDS: APIXABAN 5 MG TABLET PO ×2 (09:28→17:36)
[2021-10-29] MEDS: PANTOPRAZOLE 40 MG TABLET PO (11:39)
--- NOTE | 2021-10-29 14:55 | P.PNIM_ITS ---
Progress Note: A&P Assessment and Plan (1) Acute hyponatremia: Code(s): E87.1 - Hypo-osmolality and hyponatremia Status: Acute Assessment and Plan: Likely secondary to water intoxication. * fluid restriction 1500 mL/day. * TSH within normal limits. * Urine sodium 23 and urine osmolarity pending. * Trend sodium level- 121 to 123 to 127 to 125 to 127. * Continue NS at 100 mL/hour. * Monitor I/O. * Repeat sodium level at 1500. Goal 130 or over. (2) Bilateral edema of lower extremity: Code(s): R60.0 - Localized edema Status: Acute Assessment and Plan: C/o BLE edema present on admission. * Hold Norvasc * Hold oxybutynin. * Continue Fluid restriction * BNP elevated mildly elevated. 04/2021 Echo with normal LV systolic and diastolic function, EF 60%, moderate MR/TR and mild pulmonary hypertension. * Elevate BLE * Improved. (3) Hypomagnesemia: Code(s): E83.42 - Hypomagnesemia Status: Acute Assessment and Plan: Magnesium level 1.3 on admission. Given 2 grams mag sulfate IVPB x1 in ED. * Mag level 1.8 on 10/28/21. additional Mag sulfate 1 gram IVPB x1 given 10/28/21. * Will repeat magnesium level tomorrow. (4) Dyslipidemia: Code(s): E78.5 - Hyperlipidemia, unspecified Status: Chronic Assessment and Plan: Continue with simvastatin. (5) CAD (coronary artery disease): Qualifiers: Coronary Disease-Associated Artery/Lesion type: [place] artery [place] vs. transplanted heart: [place] heart Associated angina: without angina Qualified Code(s): I25.10 - Atherosclerotic heart disease of [place] coronary artery without angina pectoris Code(s): I25.10 - Atherosclerotic heart disease of [place] coronary artery without angina pectoris Status: Chronic Assessment and Plan: Continue atenolol, simvastatin. No chest pain. (6) HTN (hypertension): Qualifiers: Hypertension type: essential hypertension Qualified Code(s): I10 - Essential (primary) hypertension Code(s): I10 - Essential (primary) hypertension Status: Chronic Assessment and Plan: Stable. Continue losartan and atenolol at home doses. Hold amlodipine as above. (7) Afib: Qualifiers: Atrial fibrillation type: paroxysmal Qualified Code(s): I48.0 - Paroxysmal atrial fibrillation Code(s): I48.91 - Unspecified atrial fibrillation Status: Chronic Assessment and Plan: H/O chronic afib. * Monitor telemetry. * Continue with apixaban * Continue atenolol. (8) BPH (benign prostatic hyperplasia): Code(s): N40.0 - Benign prostatic hyperplasia without lower urinary tract symptoms Status: Chronic Assessment and Plan: UA with 1+ blood, 1+ leukocytes, and 16-20 WBC. Urine culture negative. Reportedly, recently treated with antibiotics and evaluation for gross hematuria. * continue with Flomax * urology consult for hematuria microscopically and chronic back. Outpatient cystoscopy scheduled. * Hold oxybutynin which caused him to be thirsty and drink excessively Plan CODE STATUS: FULL CODE Disposition: Home Time Spent With Patient Time with patient: 15 - 25 minutes Subjective Date/time seen: 10/29/21 14:55 Interval history: Patient is a 76 yo male with medical history of BPH recently started on oxybutynin, afib on chronic anticoagulation, hypertension, mitral regurgitation, and CAD. He presented to
--- NOTE | 2021-10-29 14:55 | PM.IMPN ---
Progress Note: A&P Assessment and Plan (1) Acute hyponatremia: Code(s): E87.1 - Hypo-osmolality and hyponatremia Status: Acute Assessment and Plan: Likely secondary to water intoxication. fluid restriction 1500 mL/day. TSH within normal limits. Urine sodium 23 and urine osmolarity pending. Trend sodium level- 121 to 123 to 127 to 125 to 127. Continue NS at 100 mL/hour. Monitor I/O. Repeat sodium level at 1500. Goal 130 or over. (2) Bilateral edema of lower extremity: Code(s): R60.0 - Localized edema Status: Acute Assessment and Plan: C/o BLE edema present on admission. Hold Norvasc Hold oxybutynin. Continue Fluid restriction BNP elevated mildly elevated. 04/2021 Echo with normal LV systolic and diastolic function, EF 60%, moderate MR/TR and mild pulmonary hypertension. Elevate BLE Improved. (3) Hypomagnesemia: Code(s): E83.42 - Hypomagnesemia Status: Acute Assessment and Plan: Magnesium level 1.3 on admission. Given 2 grams mag sulfate IVPB x1 in ED. Mag level 1.8 on 10/28/21. additional Mag sulfate 1 gram IVPB x1 given 10/28/21. Will repeat magnesium level tomorrow. (4) Dyslipidemia: Code(s): E78.5 - Hyperlipidemia, unspecified Status: Chronic Assessment and Plan: Continue with simvastatin. (5) CAD (coronary artery disease): Qualifiers: Coronary Disease-Associated Artery/Lesion type: [place] artery [place] vs. transplanted heart: [place] heart Associated angina: without angina Qualified Code(s): I25.10 - Atherosclerotic heart disease of [place] coronary artery without angina pectoris Code(s): I25.10 - Atherosclerotic heart disease of [place] coronary artery without angina pectoris Status: Chronic Assessment and Plan: Continue atenolol, simvastatin. No chest pain. (6) HTN (hypertension): Qualifiers: Hypertension type: essential hypertension Qualified Code(s): I10 - Essential (primary) hypertension Code(s): I10 - Essential (primary) hypertension Status: Chronic Assessment and Plan: Stable. Continue losartan and atenolol at home doses. Hold amlodipine as above. (7) Afib: Qualifiers: Atrial fibrillation type: paroxysmal Qualified Code(s): I48.0 - Paroxysmal atrial fibrillation Code(s): I48.91 - Unspecified atrial fibrillation Status: Chronic Assessment and Plan: H/O chronic afib. Monitor telemetry. Continue with apixaban Continue atenolol. (8) BPH (benign prostatic hyperplasia): Code(s): N40.0 - Benign prostatic hyperplasia without lower urinary tract symptoms Status: Chronic Assessment and Plan: UA with 1+ blood, 1+ leukocytes, and 16-20 WBC. Urine culture negative. Reportedly, recently treated with antibiotics and evaluation for gross hematuria. continue with [facility] urology consult for hematuria microscopically and chronic back. Outpatient cystoscopy scheduled. Hold oxybutynin which caused him to be thirsty and drink excessively Plan CODE STATUS: FULL CODE Disposition: Home Time Spent With Patient Time with patient: 15 - 25 minutes Subjective Date/time seen: 10/29/21 14:55 Interval history: Patient is a 76 yo male with medical history of BPH recently started on oxybutynin, afib on chronic anticoagulation, hypertension, mitral regurgitation, and CAD. He presented to the ED for evaluation of lower extremity edema. He denies anorexia, nausea, vomiting, disorientation or lethargy. No dysuria or hematuria. He denies overnight events. Nursing reports he has short bursts of SVT while getting up, however, he is asymptomatic. Review of Systems Review of Systems: All systems reviewed & are unremarkable except as noted in HPI and below Exam Narrative: General: No acute distress.? Mental Status/Psych: AAOx4. Neutral mood and affect. Cooperative wit
[2021-10-29 15:12] LABS: Sodium 130 mmol/L (137-145)
[2021-10-29] MEDS: polyethylene glycoL 3350 17 GM POWD.PACK PO (17:36)
[2021-10-30] VITALS: PULSE 76
[2021-10-30 04:00] VITALS: PULSE 76
[2021-10-30 06:41] VITALS: BP 147/86; PULSE 96; RESP 18; TEMP 36.1; O2SAT 100
[2021-10-30 07:23] LABS: Sodium 131 mmol/L (137-145)
[2021-10-30 08:00] VITALS: PULSE 124
--- NOTE | 2021-10-30 08:29 | PM.DS ---
DS: Admitting Diagnosis Discharge Date 10/30/21 1050 Admitting Diagnosis Hyponatemia Hypomagnesemia Localized edema DS: Discharge Diagnosis Discharge Diagnosis (1) Acute hyponatremia: Code(s): E87.1 - Hypo-osmolality and hyponatremia Status: Acute Assessment and Plan: (2) Bilateral edema of lower extremity: Code(s): R60.0 - Localized edema Status: Acute (3) Hypomagnesemia: Code(s): E83.42 - Hypomagnesemia Status: Acute (4) Paroxysmal SVT (supraventricular tachycardia): Code(s): I47.1 - Supraventricular tachycardia Status: Acute Assessment and Plan: Asymptomatic (5) BPH (benign prostatic hyperplasia): Code(s): N40.0 - Benign prostatic hyperplasia without lower urinary tract symptoms Status: Chronic DS: Summary Hospital Course Hospital Course: Marcos Echeverria is a 76-year-old male patient who came to the emergency room from home with complaints of lower extremity edema.?The patient has BPH and was recently started on oxybutynin.? He reported increased thirst and drinking lots of water.? He had an echo in April and was told he does not have congestive heart failure.? He denied fever, chills, chest pain or shortness of breath.? He has history of atrial fibrillation is on anticoagulation.? The patient stated that he has been drinking lots of water.? Patient is also on amlodipine.?The patient recently had a UTI and had some blood in his urine.?UA obtained in ED showed 1+ blood, 1+ urine leukocyte esterase, and wbc's 16-20.? Chest x-ray showed no acute cardiopulmonary disease and the cardio mediastinal silhouette is within normal limits.? His magnesium was 1.3, sodium was 121.? Upon arrival to the medical floor he had a 5 beat run of SVT, but was asymptomatic. He has a history of atrial fibrillation and sees . The patient was referred for observation and managment of hyponatremia. Hyponatremia was thought to be secondary to water intoxication. Oxybutinin was stopped. He was placed on a fluid restriction 1800 mL/day initially. His sodium was monitored and was 125 to 127 mg/dL on iniital fluid restriction. Fluid restriction was made stricter to 1500 mL/hour and isotonic saline was initiated, NS@100 mL/hour. The patient's sodium increased to 131 and he remained neurologically intact without anorexia, N/V/D. Urine sodium was 23 and urine osmo was drawn, but pending at discharge. TSH was within normal limits. BLE edema improved with holding amlodipine and fluid restriction. The patient had episodes of non-sustained SVT. Magnesium was 1.3 and replaced with 2 grams IV mag sulfate x1. He was asymptomatic. His atenolol was continued and blood pressure remained stable. Urology was consulted for hematuria. He was continued on Flomax. Outpatient cystoscopy was scheduled. Urine culture was negative for growth. Patient was discharged home in stable condition and independent with ADLs. He was instructed on fluid restriction until repeat blood work on Wednesday, 11/01. He will follow up with his PCP for reevaluation. Oxybutinin was discontinued. Status at Discharge Cognitive/behavioral status at discharge: AAOx4. Pleasant Functional status at discharge: independent ambulation Overall status at discharge: patient is back to baseline Time Spent with Patient Time attestation: Total time spent providing and/or coordinating discharge services: Time spent: Greater than 30 minutes Exam Narrative: General: No acute distress.? Mental Status/Psych: AAOx4. Neutral mood and affect. Cooperative with examination. Clear and appropriate speech. Skin: Skin fair, warm, and dry without rashes or lesions. HEENT: Normocephalic. Pupils equal and round. Oral mucosa moist. Neck: No JVD. Heart: Irregularly irregular rate and rhythm. aifb 90 bpm. No murmurs, gallops, or rubs auscultated. Chest: RR unlabored at rest. Lung sounds are clear to auscultation in all lobes b
[2021-10-30] MEDS: polyethylene glycoL 3350 17 GM POWD.PACK PO (08:53)
[2021-10-30 08:54] VITALS: PULSE 96
[2021-10-30] MEDS: atenoloL 25 MG TABLET 75 MG BY MOUTH (08:54)
[2021-10-30] MEDS: PANTOPRAZOLE 40 MG TABLET PO (08:57)
[2021-10-30] MEDS: TAMSULOSIN HCL 0.4 MG CAPSULE PO (08:57)
[2021-10-30] MEDS: APIXABAN 5 MG TABLET PO (08:57)
[2021-10-30] MEDS: SIMVASTATIN 20 MG TABLET 40 MG BY MOUTH (08:57)
[2021-11-01 07:34] LABS: Osmolality, Urine 129 mOsm/kg (50-1200)
== END 2021-10-30 11:10 | disposition home or self-care (01) | DRG 641 ==
LOC: ANHED 17:16 → ANH2MED 20:04
PROVIDERS: Nurse Practitioner; Nurse Practitioner Family; Admitting Provider Chiropractor; Emergency Provider Emergency Medicine; PCP Emergency Medicine; Visit Provider Chiropractor
DX: E87.79 Other fluid overload (principal); I48.20 Chronic atrial fibrillation, unspecified; I47.1 Supraventricular tachycardia; E87.1 Hypo-osmolality and hyponatremia; E83.42 Hypomagnesemia; I10 Essential (primary) hypertension; I34.0 Nonrheumatic mitral (valve) insufficiency; I25.10 Atherosclerotic heart disease of native coronary artery without angina pectoris; E53.8 Deficiency of other specified B group vitamins; E55.9 Vitamin D deficiency, unspecified; E78.5 Hyperlipidemia, unspecified; N32.81 Overactive bladder; N40.0 Benign prostatic hyperplasia without lower urinary tract symptoms; K21.9 Gastro-esophageal reflux disease without esophagitis; R31.0 Gross hematuria; R91.1 Solitary pulmonary nodule; T44.3X5A Adverse effect of other parasympatholytics [anticholinergics and antimuscarinics] and spasmolytics, initial encounter; Z87.891 Personal history of nicotine dependence; Z79.01 Long term (current) use of anticoagulants; Z86.010 Personal history of colon polyps
CPT/HCPCS: 36415; 71046; 74018; 74178; 80048; 80053; 81001; 83735; 83880; 83935; 84295; 84300; 84443; 84484; 85014; 85018; 85025; 85055; 85610; 85730; 87086; 93005; 96365; 96376; 99285; A9270; G0378; J3475; J7030; Q9967

== ENCOUNTER 2021-11-01 10:10 | Outpatient (CLI) | payer MEDICARE, SELFPAY ==
[2021-11-01 10:46] LABS: Anion Gap 10 mmol/L (8-16); Blood Urea Nitrogen 20 mg/dL (9-20); Calcium 9.1 mg/dL (8.4-10.2); Carbon Dioxide 30 mmol/L (22-30); Chloride 91 mmol/L (98-107); Estimated Glomerular Filt Rate > 60; Glucose 100 mg/dL (65-110); Potassium 4.8 mmol/L (3.4-5.0); Sodium 131 mmol/L (137-145)
== END 2021-11-01 10:11 | disposition home or self-care (01) ==
PROVIDERS: PCP Emergency Medicine; Visit Provider Nurse Practitioner Family
DX: E87.1 Hypo-osmolality and hyponatremia (principal)
CPT/HCPCS: 36415; 80048

== ENCOUNTER 2022-05-12 13:33 | Outpatient (CLI) | payer MEDICARE, SELFPAY ==
--- NOTE | 2022-05-12 13:41 | ECHO_ITS ---
Patient Info Name: Marcos Echeverria Age: 76 years : 1945 Gender: Male Ht: 68 in Wt: 187 lbs BSA: 2.04 m2 HR: 87 bpm BP: 126 / 78 mmHg Heart Rhythm: Atrial Fibrillation Technical Quality: Good Exam Date: 05/12/2022 2:01 PM Exam Location: [facility] Patient Status: Outpatient Admit Date: 05/12/2022 Staff Ordering Physician: Yunier Domingo DO [employer] Technician: Lizet Sanots RDCS Attending Provider: Yunier Domingo DO Referring Physician: Jose L ESTRADA; Exam Type: CA echo doppler color flow Study Info Indications I34.0 - Nonrheumatic mitral (valve) insufficiency Complete two-dimensional, color flow and Doppler transthoracic echocardiogram is performed. Summary 1. Complete two-dimensional, color flow and Doppler transthoracic echocardiogram is performed. 2. Left ventricular chamber dimension is normal. 3. Left ventricular systolic function is normal, estimated at 60-65%. 4. The left ventricular diastolic function is normal. 5. E/e' 9 is minimally elevated. 6. Left atrial chamber dimension is severely enlarged. 7. Right atrial chamber dimension is severely enlarged. 8. There is mild aortic valve sclerosis. 9. There is mild aortic valve regurgitation. 10. The mitral valve has moderately calcified annulus. 11. There is mild mitral valve regurgitation. 12. There is mild to moderate tricuspid valve regurgitation. 13. Mild pulmonary hypertension, estimated pulmonary arterial systolic pressure is 43 mmHg. 14. Atrial fibrillation. Left Ventricle E/e' 9 is minimally elevated. Atrial fibrillation. Left ventricular chamber dimension is normal. Left ventricular systolic function is normal, estimated at 60-65%. The left ventricular diastolic function is normal. Right Ventricle Right ventricular chamber dimension is normal. Right ventricular systolic function is normal. Left Atria Left atrial chamber dimension is severely enlarged. Right Atria Right atrial chamber dimension is severely enlarged. Aortic Valve The aortic valve is trileaflet. There is mild aortic valve sclerosis. There is no aortic valve stenosis. There is mild aortic valve regurgitation. Pulmonic Valve There is no pulmonic regurgitation. Mitral Valve The mitral valve has moderately calcified annulus. There is no mitral valve stenosis. There is mild mitral valve regurgitation. Tricuspid Valve There is mild to moderate tricuspid valve regurgitation. Mild pulmonary hypertension, estimated pulmonary arterial systolic pressure is 43 mmHg. Pericardium/Pleural There is no pericardial effusion. Inferior Vena Cava Normal inferior vena cava with >50% collapse upon inspiration consistent with normal right atrial pressure, 5 mmHg. Aorta The aortic root size at the sinus of Valsalva is normal. Left Ventricular Outflow Tract Name Value Normal LVOT 2D LVOT Diameter 2.0 cm LVOT Doppler LVOT Peak Gradient 2 mmHg LVOT Mean Gradient 1 mmHg LVOT VTI 16 cm LVOT VTI/AV VTI Ratio 0.9 LVO
== END 2022-05-12 13:34 | disposition home or self-care (01) ==
PROVIDERS: PCP Emergency Medicine; Visit Provider Internal Medicine Cardiovascular Disease
DX: I08.3 Combined rheumatic disorders of mitral, aortic and tricuspid valves (principal); I27.20 Pulmonary hypertension, unspecified; I48.91 Unspecified atrial fibrillation
CPT/HCPCS: 93306

== ENCOUNTER 2022-07-07 09:30 | Outpatient (CLI) | payer MEDICARE, SELFPAY ==
--- NOTE | ~2022-07-07 | CT_ITS ---
EXAMINATION:CT lung screening DATE: 07/07/2022 09:48 INDICATION: Tobacco use. Smoker quit 4 years ago with 81 pack year history. TECHNIQUE: Computed tomography (CT) of the chest was performed without intravenous contrast. Automate d exposure control and iterative reconstruction technique were employed. The dose-length product (DLP ) was 159.47 mGy-cm. COMPARISON: Chest CT 07/03/2021 FINDINGS: There is mild emphysema. There is mild atelectasis bilaterally. No pleural effusion. Cardio megaly is noted. There are coronary artery calcifications. No pericardial effusion. There is ectasia of ascending aorta measuring 4.2 cm. There is a stent graft in abdominal aorta. There is mild thoraci c spondylosis. There is a benign bone island in L3 vertebral body. IMPRESSION: 1. Lung-RADS category 1: Negative. Continue annual screening with noncontrast low-dose chest CT in 12 months. Reviewed, dictated and finalized at location A. IMPRESSION: 1. Lung-RADS category 1: Negative. Continue annual screening with noncontrast l ow-dose chest CT in 12 months.
== END 2022-07-07 09:31 | disposition home or self-care (01) ==
PROVIDERS: PCP Emergency Medicine; Visit Provider Emergency Medicine
DX: Z12.2 Encounter for screening for malignant neoplasm of respiratory organs (principal); Z87.891 Personal history of nicotine dependence
CPT/HCPCS: 71271

== ENCOUNTER 2022-10-03 21:16 | Emergency (ER) | payer MEDICARE, SELFPAY ==
--- NOTE | ~2022-10-03 | CT_ITS ---
EXAMINATION: CT abdomen pelvis wo/w con DATE: 10/04/2022 00:07 INDICATION: Hematuria. Difficulty urinating. TECHNIQUE: Computed tomography (CT) of the abdomen and pelvis was performed with 100 cc Omnipaque 350 intravenous contrast. The dose-length product was 1619.23 mGy-cm. Automated exposure control and ite rative reconstruction technique were employed. COMPARISON: CT dated 10/28/2021 FINDINGS: There is small right pleural effusion with dependent atelectasis of the right lower lobe. B orderline heart size. No significant pericardial effusion. There is a 3.6 cm infrarenal abdominal aor tic aneurysm status post endoluminal stent graft repair. The liver, spleen, pancreas, adrenal glands and kidneys are unremarkable. Bladder wall mildly thicken ed which is most likely due to outlet obstruction from enlarged prostate gland. Cystitis less favored . Small inguinal hernias containing fat. There is a fat-containing umbilical hernia. Subcentimeter hy podense lesions of the left kidney, most likely benign. Nonobstructive bowel pattern. Colonic diverti culosis without evidence for diverticulitis. Severe lumbar spondylosis. IMPRESSION: 1. Small right pleural effusion with dependent atelectasis of the right lower lobe. 2: Bladder wall thickening, most likely due to outlet obstruction from enlarged prostate gland. Cysti tis less favored. Reviewed, dictated and finalized at location A. IMPRESSION: 1. Small right pleural effusion with dependent atelectasis of the right lower l obe. 2: Bladder wall thickening, most likely due to outlet obstruction from enlarged prostate gland. Cystitis less favored.
[2022-10-03 21:18] VITALS: BP 149/81; PULSE 110; RESP 18; TEMP 36.4; O2SAT 97
--- NOTE | 2022-10-03 22:11 | ED.GENADULT ---
HPI - General Adult General Chief complaint: Urogenital-Male <Oma Valdez PA-C - Last Filed: 10/04/22 02:30> Stated complaint: peeing blood <Oma Valdez PA-C - Last Filed: 10/04/22 02:30> Time Seen by Provider: 10/03/22 21:50 <DORA Alvarez Last Filed: 10/04/22 02:30> Source: patient and old records reviewed <DORA Alvarez Last Filed: 10/04/22 02:30> Mode of arrival: ambulatory <DORA Alvarez Last Filed: 10/04/22 02:30> Limitations: no limitations <DORA Alvarez Last Filed: 10/04/22 02:30> History of Present Illness HPI narrative: Patient is a 77-year-old male who presents ED with report of hematuria. Patient reports he was having difficulty urinating today. He states he felt like he needed to urinate, but was only dribbling out small amounts. He then had an episode of hematuria and states blood was spewing out. He did note mild dysuria at that time. He states he has not urinated in the last couple of hours since then. He denies any lower abdominal pain, lower back pain, nausea, vomiting, fevers. Patient has history of retention in the past. He has history of TURP. He sees Dr. Nielson. He notes he had a CT urogram and cystoscopy due to hematuria last October/November, all of which came back normal. Patient is on Eliquis due to history of chronic A-fib. <Oma Valdez PA-C - Last Filed: 10/04/22 02:30> Related Data Home medications: Home Medications Medication Instructions Recorded Confirmed flaxseed oil 1,000 mg capsule See Rx Instructions .Route .COMPLEX 04/23/19 05/20/22 cholecalciferol (vitamin D3) 50 2,000 unit PO DAILY 01/22/20 05/20/22 mcg (2,000 unit) capsule cyanocobalamin (vitamin B-12) 250 See Rx Instructions .Route .COMPLEX 01/22/20 05/20/22 mcg tablet (Vitamin B-12) <Oma Valdez PA-C - Last Filed: 10/04/22 02:30> Allergies/adverse reactions: Allergies Allergy/AdvReac Type Severity Reaction Status Date / Time ibuprofen Allergy Unknown Unknown Verified 10/03/22 21:16 lisinopril AdvReac Severe tongue and Verified 10/03/22 21:16 lip swelling <Oma Vladez PA-C - Last Filed: 10/04/22 02:30> Review of Systems Review of Systems: CONSTITUTIONAL: Denies fever, chills, or sweats. CARDIOVASCULAR: Denies chest pain. RESPIRATORY: Denies dyspnea. GASTROINTESTINAL: Denies abdominal pain, nausea, vomiting. GENITOURINARY: See HPI. SKIN: Denies rash or itching. MUSCULOSKELETAL: Denies back pain, joint pain, or myalgia. <Oma Valdez PA-C - Last Filed: 10/04/22 02:30> All systems reviewed & are unremarkable except as noted in HPI and below <Oma Valdez PA-C - Last Filed: 10/04/22 02:30> [facility] Past Medical History Medical History: Medical History Abnormal CT scan, chest Abnormal EKG Adenomatous colon polyp Afib Atherosclerotic heart disease of [place] coronary artery with angina pectoris B12 deficiency Bowel habit changes Chronic atrial fibrillation Colon cancer screening Enlarged prostate without lower urinary tract symptoms (luts) Essential (primary) hypertension Gastro-esophageal reflux disease without esophagitis HTN (hypertension) Hyperglycemia Incontinence of feces Lung nodule Mixed hyperlipidemia Non-rheumatic mitral regurgitation Other hyperlipidemia Overweight (04/22/15) Positive colorectal cancer screening using Cologuard test Smoking Tobacco abuse Vitamin D deficiency <Oma Valdez PA-C - Last Filed: 10/04/22 02:30> Surgical History Surgical History: Surgical History H/O heart artery stent History of aortic aneurysm repair History of cardiac cath History of endovascular stent graft for abdominal aortic aneurysm History of transurethral resection of prost
[2022-10-03 23:12] VITALS: BP 125/69; PULSE 91; RESP 13; O2SAT 98
[2022-10-03] MEDS: SODIUM CHLORIDE 0.9% IV 1,000 ML 999 ML (23:16)
[2022-10-03 23:42] LABS: Estimated CRCL calculation 64 ml/min; Estimated Glomerular Filt Rate > 60
[2022-10-04 00:17] LABS: Appearance Urine Clear (Clear); Bacteria Urine None Seen /hpf; Bilirubin Urine Negative (Negative); Blood Urine 3+ (Negative); Color Urine Red (Yellow); Glucose Urine UA Trace mg/dL (Negative); Ketones Urine Negative (Negative); Leukocyte Esterase Ur 1+ LEU/UL (Negative); Need Manual Microscopic Reviewed; Nitrate Urine Negative (Negative); Non Pathogenic Casts 0-2; Protein Urine 4+ mg/dL (Negative); Squamous Epithelial Cell Urine None seen /hpf (Few)
[2022-10-04 00:18] LABS: Add Urine Microscopic? YES
[2022-10-04 00:19] LABS: RBC Urine >100 /hpf (0-2); WBC Urine >100 /hpf
[2022-10-04 00:21] LABS: Lactic Acid Reflex 1.2 mmol/L (0.7-2.0)
[2022-10-04 00:23] LABS: Anion Gap 10 mmol/L (8-16); Blood Urea Nitrogen 18 mg/dL (9-20); Calcium 9.2 mg/dL (8.4-10.2); Carbon Dioxide 27 mmol/L (22-30); Chloride 92 mmol/L (98-107); Estimated CRCL calculation 64 ml/min; Estimated Glomerular Filt Rate > 60; Glucose 134 mg/dL (65-110); Potassium 4.3 mmol/L (3.4-5.0); Sodium 129 mmol/L (137-145)
[2022-10-04 00:26] LABS: Basophils Percent Auto 0.1 % (0.2-1.2); Eosinophils Percent Auto 0.1 % (0-4.4); Hematocrit 41.6 % (42.0-52.0); Hemoglobin 14.7 g/dL (14.0-18.0); Immature Granulocyte Absolute 0.06 K/mm3 (0.00-0.031); Immature Granulocyte Percent A 0.4 % (0-0.5); Lymphocytes Absolute Auto 0.84 K/mm3 (0.9-3.2); Lymphocytes Percent Auto 6.3 % (18.3-44.2); Mean Corpuscular HGB Conc 35.3 g/dl (32-36); Mean Corpuscular Hemoglobin 32.1 pg (26-34); Mean Corpuscular Volume 90.8 fl (80-100); Mean Platelet Volume 10.2 fl (7.4-10.4); Monocytes Absolute Auto 0.9 K/mm3 (0.1-0.6); Monocytes Percent Auto 6.8 % (2.6-8.5); Neutrophils Absolute Auto 11.6 K/mm3 (1.3-6.7); Neutrophils Percent Auto 86.3 % (45.5-73.1); Platelet Count Result 136 k/mm3 (150-375); Red Blood Count 4.58 M/mm3 (4.6-6.20); Red Cell Distribution Width 13.4 % (11.5-14.5); White Blood Count 13.4 K/mm3 (4.5-10.0)
[2022-10-04 00:39] VITALS: BP 142/83; PULSE 107; RESP 14; O2SAT 97
[2022-10-04 01:20] VITALS: BP 149/88; PULSE 88; RESP 14; O2SAT 97
== END 2022-10-04 01:40 | disposition home or self-care (01) ==
PROVIDERS: Emergency Provider Physician Assistant; PCP Emergency Medicine
DX: N30.01 Acute cystitis with hematuria (principal); I10 Essential (primary) hypertension; E78.2 Mixed hyperlipidemia; I25.10 Atherosclerotic heart disease of native coronary artery without angina pectoris; I48.91 Unspecified atrial fibrillation; Z87.891 Personal history of nicotine dependence
CPT/HCPCS: 36415; 74178; 80048; 81001; 83605; 85025; 87077; 87086; 87088; 87186; 96361; 96365; 99284; J0696; Q9967

== ENCOUNTER 2022-10-11 00:43 | Inpatient (IN) | payer MEDICARE, SELFPAY ==
[2022-10-11] VITALS (18 sets, daily range): BP systolic 114–144; BP diastolic 66–93; PULSE 74–101; RESP 16–32; TEMP 36.2–36.6; O2SAT 92–100; BMI 30.7
--- NOTE | ~2022-10-11 | XR_ITS ---
EXAMINATION: XR chest PICC line DATE: 10/19/2022 11:41 INDICATION: PICC line placement TECHNIQUE: frontal view of the chest was obtained. COMPARISON: Chest radiograph dated 10/15/2022 FINDINGS: Left upper extremity peripherally inserted central venous catheter (PICC) tip at the caudal superior vena cava. Decrease in an airspace opacity in the right lower lung zone which appears to include a s mall right pleural effusion extending to the fissures. Linear discoid atelectasis at the left lung ba se. No pulmonary edema or pneumothorax or left-sided pleural effusion. Cardiomegaly with right atrial enlargement. IMPRESSION: 1. Left approximately PICC line tip at the caudal superior vena cava. 2. Small right pleural effusion with associated right basilar atelectasis or less likely pneumonia. 3. Cardiomegaly with right atrial enlargement. Reviewed, dictated and finalized at location B. IMPRESSION: 1. Left approximately PICC line tip at the caudal superior vena cava. 2. Small right pleural effusion with associated right basilar atelectasis or le ss likely pneumonia. 3. Cardiomegaly with right atrial enlargement.
--- NOTE | ~2022-10-11 | XR_ITS ---
XR chest 2V DATE: 10/11/2022 01:22 INDICATION: Wheezing. History of congestive heart failure. TECHNIQUE: 2 views COMPARISON: July 07, 2022 CT lung screening 10/27/2021 2 view chest FINDINGS: Cardiomegaly. Aortic calcification and unfolding. Endovascular abdominal aortic graft. Moderate bilateral hyperinflation suggesting COPD. There is mild right basilar infiltrate or atelectasis and small right pleural effusion. The lungs oth erwise appear clear. IMPRESSION: Mild right basilar infiltrate or atelectasis and mild right pleural effusion Cardiomegaly Aortic atherosclerosis Abdominal aortic endovascular graft Reviewed, dictated and finalized at location A.
--- NOTE | ~2022-10-11 | XR_ITS ---
Portable chest x-ray Comparison: 10/11/2022 Clinical History: Shortness of breath Findings: Probable small right pleural effusion present with minimal right basilar pulmonary edema/a telectasis. Left lung clear. Cardiomediastinal silhouette is stable. Bones and soft tissues are unre markable. Impression: Small right pleural effusion with minimal right basilar pulmonary edema/atelectasis. Reviewed, dictated and finalized at [facility]. Impression: Small right pleural effusion with minimal right basilar pulmonary edema/atelect asis.
--- NOTE | ~2022-10-11 | XR_ITS ---
Portable chest x-ray Comparison: 10/13/2022 Clinical History: Shortness of breath Findings: Small right pleural effusion is present. Left lung clear. Cardiomediastinal silhouette is stable. Bones and soft tissues are unremarkable. Impression: Small right pleural effusion. Reviewed, dictated and finalized at location . Impression: Small right pleural effusion.
--- NOTE | ~2022-10-11 | CT_ITS ---
EXAMINATION: CT brain wo con INDICATION: Persistent hyponatremia COMPARISON: None TECHNIQUE: Standard unenhanced head CT. The dose-length product (DLP) was 605.33 mGy-cm. The mA was a djusted according to patient size. Iterative reconstruction technique was employed. FINDINGS: There is no acute intraparenchymal hemorrhage. No evidence of mass lesion. No evidence of a cute infarction. There is mild periventricular and subcortical hypodensity probably related to small vessel ischemic disease. There is mild prominence of the sulci and ventricles related to cerebral atr ophy. Intracranial calcified cerebral atherosclerosis is noted. There are no extra-axial collections. There is no mass effect or midline shift. The orbits and soft tissues are unremarkable. The visualiz ed sinuses and mastoid air cells are well aerated. IMPRESSION: 1. No acute intracranial abnormality. 2. Age related findings. Reviewed, dictated and finalized at location F.
--- NOTE | 2022-10-11 00:44 | ECG_ITS ---
Measurements Intervals [place] Rate: 80 P: NV: 0 QRS: -31 QRSD: 110 T: 67 QT: 376 QTc: 434 Interpretive Statements ATRIAL FIBRILLATION LEFT AXIS DEVIATION DELAYED PRECORDIAL R/S TRANSITION NONSPECIFIC ST & T-WAVE ABNORMALITY- HIGH LATERAL LEADS BASELINE ARTIFACT- I, II, AVR, AVL ABNORMAL ECG COMPARED TO ECG 10/27/2021 16:15:22 NO SIGNIFICANT CHANGES Electronically Signed On 10-11-2022 8:49:54 CDT by Yunier Domingo D.O.
[2022-10-11 01:03] LABS: Basophils Absolute Auto 0.1 K/mm3 (0.0-0.1); Basophils Percent Auto 0.4 % (0.2-1.2); Eosinophils Percent Auto 0.1 % (0-4.4); Hematocrit 37.6 % (42.0-52.0); Hemoglobin 13.5 g/dL (14.0-18.0); Immature Granulocyte Absolute 0.22 K/mm3 (0.00-0.031); Immature Granulocyte Percent A 1.3 % (0-0.5); Lymphocytes Absolute Auto 0.99 K/mm3 (0.9-3.2); Lymphocytes Percent Auto 5.9 % (18.3-44.2); Mean Corpuscular HGB Conc 35.9 g/dl (32-36); Mean Corpuscular Hemoglobin 31.8 pg (26-34); Mean Corpuscular Volume 88.5 fl (80-100); Mean Platelet Volume 9.3 fl (7.4-10.4); Monocytes Absolute Auto 1.3 K/mm3 (0.1-0.6); Monocytes Percent Auto 7.9 % (2.6-8.5); Neutrophils Absolute Auto 14.2 K/mm3 (1.3-6.7); Neutrophils Percent Auto 84.4 % (45.5-73.1); Platelet Count Result 169 k/mm3 (150-375); Red Blood Count 4.25 M/mm3 (4.6-6.20); Red Cell Distribution Width 13.4 % (11.5-14.5); White Blood Count 16.8 K/mm3 (4.5-10.0)
[2022-10-11 01:14] LABS: INR 1.8; Prothrombin Time 21.9 Seconds (11.1-14.7)
[2022-10-11 01:32] LABS: Alanine Aminotransferase 29 U/L (6-50); Albumin Level 4.1 g/dL (3.5-5.1); Alkaline Phosphatase 68 U/L (38-126); Anion Gap 7 mmol/L (8-16); Aspartate Amino Transferase 39 U/L (17-59); Bilirubin,Total 1.6 mg/dL (0.2-1.3); Blood Urea Nitrogen 18 mg/dL (9-20); Calcium 9.2 mg/dL (8.4-10.2); Carbon Dioxide 29 mmol/L (22-30); Chloride 79 mmol/L (98-107); Estimated CRCL calculation 72 ml/min; Estimated Glomerular Filt Rate > 60; Glucose 129 mg/dL (65-110); Potassium 5.1 mmol/L (3.4-5.0); Sodium 115 mmol/L (137-145)
[2022-10-11 01:44] LABS: NT Pro B Type Natriuretic Pept 2630 pg/mL (19.9-100); Troponin I < 0.012 ng/mL (0.000-0.034)
[2022-10-11] MEDS: SODIUM CHLORIDE 0.9% IV 1,000 ML 999 ML IV CONT (02:04)
[2022-10-11 02:13] LABS: Anion Gap 9 mmol/L (8-16); Blood Urea Nitrogen 18 mg/dL (9-20); Calcium 8.7 mg/dL (8.4-10.2); Carbon Dioxide 26 mmol/L (22-30); Chloride 79 mmol/L (98-107); Estimated CRCL calculation 83 ml/min; Estimated Glomerular Filt Rate > 60; Glucose 120 mg/dL (65-110); Potassium 4.2 mmol/L (3.4-5.0); Sodium 114 mmol/L (137-145)
[2022-10-11 02:40] LABS: Bacteria Urine None Seen /hpf; Non Pathogenic Casts 0-2; RBC Urine >100 /hpf (0-2); Squamous Epithelial Cell Urine None seen /hpf (Few); WBC Urine 21-50 /hpf
--- NOTE | 2022-10-11 02:53 | ED.GENADULT ---
HPI - General Adult General Chief complaint: Shortness of Breath/Dyspnea Stated complaint: blood in urine, wheezing, sob, feet swelling Time Seen by Provider: 10/11/22 01:33 History of Present Illness HPI narrative: Patient is a 77-year-old gentleman who presents the emergency department with chief complaint of hematuria and shortness of breath. The patient reports that recently he was treated for urinary tract infection and was having blood in his urine at that time patient states that he was treated with antibiotics and reports it was improving and then this evening started having blood in his urine again patient states he turned the toilet bowl red and reports that he also started having increasing shortness of breath and generalized weakness. Patient states that he can only walk a few feet without getting short of breath. The patient reports that he has prior history of episodes of hyponatremia and has been hospitalized for several days in the past for Related Data Home Medications Medication Instructions Recorded Confirmed flaxseed oil 1,000 mg capsule See Rx Instructions .Route .COMPLEX 04/23/19 05/20/22 cholecalciferol (vitamin D3) 50 2,000 unit PO DAILY 01/22/20 05/20/22 mcg (2,000 unit) capsule cyanocobalamin (vitamin B-12) 250 See Rx Instructions .Route .COMPLEX 01/22/20 05/20/22 mcg tablet (Vitamin B-12) Allergies Allergy/AdvReac Type Severity Reaction Status Date / Time ibuprofen Allergy Unknown Unknown Verified 10/11/22 00:44 lisinopril AdvReac Severe tongue and Verified 10/11/22 00:44 lip swelling Review of Systems Review of Systems: A 10 system review of systems was completed on the patient and is negative except for what is stated in the HPI. Nursing and ancillary documentation was reviewed. [facility] Past Medical History Medical History Abnormal CT scan, chest Abnormal EKG Adenomatous colon polyp Afib Atherosclerotic heart disease of [place] coronary artery with angina pectoris B12 deficiency Bowel habit changes Chronic atrial fibrillation Colon cancer screening Enlarged prostate without lower urinary tract symptoms (luts) Essential (primary) hypertension Gastro-esophageal reflux disease without esophagitis HTN (hypertension) Hyperglycemia Incontinence of feces Lung nodule Mixed hyperlipidemia Non-rheumatic mitral regurgitation Other hyperlipidemia Overweight (04/22/15) Positive colorectal cancer screening using Cologuard test Smoking Tobacco abuse Vitamin D deficiency Surgical History Surgical History H/O heart artery stent History of aortic aneurysm repair History of cardiac cath History of endovascular stent graft for abdominal aortic aneurysm History of transurethral resection of prostate Family History Family History Father Acute myocardial infarction Social History Social History Social History: the patient lives with his he has 3 children. His is the durable power employment attorney for healthcare. The patient retired from [employer]. He denies any alcohol marijuana or illicit drugs. Code status full code Smoking packs per day: 1.5 Smoking cigarettes per day: 30.0 Years smoked: 54 Smoking pack-years: 81.00 Smoking status: Never smoker Tobacco type: cigarettes Smoking end date: 03/15/18 Additional smoking assessment comments: quit in 2019 Alcohol intake: former Substance use: never Substance use type: does not use Spiritual care concerns: No Exam Narrative: GENERAL: Well-appearing, well-nourished, and in no acute distress. HEAD: Normocephalic, atraumatic. EYES: PERRLA and EOMI. ENT: Nares clear, no rhinorrhea or epistaxis. Mucous membranes moist. NECK: Sup
[2022-10-11 02:57] LABS: Appearance Urine Turbid (Clear); Bilirubin Urine 1+ (Negative); Blood Urine 3+ (Negative); Glucose Urine UA Trace mg/dL (Negative); Ketones Urine Negative (Negative); Leukocyte Esterase Ur 1+ LEU/UL (Negative); Nitrate Urine Negative (Negative); Protein Urine 2+ mg/dL (Negative); Specific Grav Ur 1.028 (1.001-1.035); pH Urine 5.5 (5.0-9.0)
[2022-10-11 03:02] LABS: Color Urine Brown (Yellow)
[2022-10-11 03:03] LABS: Add Urine Microscopic? YES
--- NOTE | 2022-10-11 04:35 | ADMGEN ---
This patient, Marcos Echeverria, was admitted to IMU Room 203-01 at 0420. Patient/family oriented to hospital policies and general routines including ID bracelet, bed and alarms, visiting hours, pain management, procedures, bathroom and other care routines, personal items, smoking policy, room service/diet, and visiting hours. Information on how to activate the Rapid Response Team has been discussed. Patient/Family are encouraged to report perceived risks to care and to ask questions if they do not understand what they are told or what they should do.
[2022-10-11] MEDS: SODIUM CHLORIDE 0.9% IV 1,000 ML 85 ML IV CONT (04:42)
--- NOTE | 2022-10-11 08:14 | PM.IMHP ---
H&P: HPI History of Present Illness Date/Time: 10/11/22 08:14 Chief Complaint: Hematuria with shortness of breath Narrative: 69-year-old male with history of AFib, colon cancer, heart disease, hypertension and other comorbidities is presenting with hematuria and shortness of breath. He recently had a UTI that was treated with antibiotics and symptoms seem to resolve, however, he returned yesterday and were also associated with shortness of breath and generalized weakness. He also notes he has a history of hyponatremia requiring hospitalization. No chest pain. No nausea, vomiting or diarrhea. No fevers or chills. In the ER, his sodium was found to be 114 and he was admitted for treatment and started on normal saline at 85 mL/hr. Review of Systems Review of Systems: 12 point review of systems was assessed and was negative except as noted in the HPI [facility] Past Medical History Medical History Abnormal CT scan, chest Abnormal EKG Adenomatous colon polyp Afib Atherosclerotic heart disease of [place] coronary artery with angina pectoris B12 deficiency Bowel habit changes Chronic atrial fibrillation Colon cancer screening Enlarged prostate without lower urinary tract symptoms (luts) Essential (primary) hypertension Gastro-esophageal reflux disease without esophagitis HTN (hypertension) Hyperglycemia Incontinence of feces Lung nodule Mixed hyperlipidemia Non-rheumatic mitral regurgitation Other hyperlipidemia Overweight (04/22/15) Positive colorectal cancer screening using Cologuard test Smoking Tobacco abuse Vitamin D deficiency Surgical History Surgical History H/O heart artery stent History of aortic aneurysm repair History of cardiac cath History of endovascular stent graft for abdominal aortic aneurysm History of transurethral resection of prostate Family History Family History Father Acute myocardial infarction Social History Social History Social History: the patient lives with his he has 3 children. His is the durable power deputy attorney general for healthcare. The patient retired from [employer]. He denies any alcohol marijuana or illicit drugs. Code status full code Smoking packs per day: 1.5 Smoking cigarettes per day: 30.0 Years smoked: 54 Smoking pack-years: 81.00 Smoking status: Former smoker Tobacco type: cigarettes Second hand tobacco smoke exposure: Yes Smoking end date: 03/15/18 Additional smoking assessment comments: quit in 2019 Alcohol intake: former Substance use: never Substance use type: does not use Lack of Transportation: No Lack of Food: Never True Current Housing: I Have Housing Concerned About Future Housing: No Difficulty Paying Gas/Electric Bills: No Difficulty Paying for Meds: No Currently Unemployed: No Education: High School Diploma/GED Difficulty w/ Childcare or Family Care: No Spiritual care concerns: No Meds Home Medications and Allergies Home Medications Medication Instructions Recorded Confirmed Type flaxseed oil 1,000 mg capsule See Rx Instructions .Route .COMPLEX 04/23/19 10/11/22 History cholecalciferol (vitamin D3) 50 2,000 unit PO DAILY 01/22/20 10/11/22 History mcg (2,000 unit) capsule cyanocobalamin (vitamin B-12) 250 See Rx Instructions .Route .COMPLEX 01/22/20 10/11/22 History mcg tablet (Vitamin B-12) sildenafil 100 mg tablet (Viagra) See Rx Instructions .Route 09/20/20 10/11/22 Rx .COMPLEX #6 tabs apixaban 5 mg tablet (Eliquis) See Rx Instructions .Route 12/25/21 10/11/22 Rx .COMPLEX #60 tabs atenolol 25 mg tablet See Rx Instructions .Route 01/12/22 10/11/22 Rx .COMPLEX #90 tabs amlodipine 5 mg tablet See Rx Instructions .Route 06/16/22 10/11/22
[2022-10-11 08:45] LABS: Basophils Absolute Auto 0.1 K/mm3 (0.0-0.1); Basophils Percent Auto 0.3 % (0.2-1.2); Eosinophils Percent Auto 0.1 % (0-4.4); Hematocrit 35.4 % (42.0-52.0); Hemoglobin 12.9 g/dL (14.0-18.0); Immature Granulocyte Absolute 0.24 K/mm3 (0.00-0.031); Immature Granulocyte Percent A 1.6 % (0-0.5); Lymphocytes Absolute Auto 0.71 K/mm3 (0.9-3.2); Lymphocytes Percent Auto 4.7 % (18.3-44.2); Mean Corpuscular HGB Conc 36.4 g/dl (32-36); Mean Corpuscular Hemoglobin 32.1 pg (26-34); Mean Corpuscular Volume 88.1 fl (80-100); Mean Platelet Volume 9.1 fl (7.4-10.4); Monocytes Percent Auto 6.8 % (2.6-8.5); Neutrophils Percent Auto 86.5 % (45.5-73.1); Platelet Count Result 148 k/mm3 (150-375); Red Blood Count 4.02 M/mm3 (4.6-6.20); Red Cell Distribution Width 13.3 % (11.5-14.5)
[2022-10-11 09:19] LABS: Alanine Aminotransferase 26 U/L (6-50); Albumin Level 3.6 g/dL (3.5-5.1); Alkaline Phosphatase 59 U/L (38-126); Anion Gap 5 mmol/L (8-16); Aspartate Amino Transferase 37 U/L (17-59); Bilirubin,Total 1.6 mg/dL (0.2-1.3); Blood Urea Nitrogen 16 mg/dL (9-20); Calcium 8.3 mg/dL (8.4-10.2); Carbon Dioxide 25 mmol/L (22-30); Chloride 80 mmol/L (98-107); Estimated CRCL calculation 112 ml/min; Estimated Glomerular Filt Rate > 60; Glucose 160 mg/dL (65-110); Potassium 4.4 mmol/L (3.4-5.0); Sodium 110 mmol/L (137-145)
--- NOTE | 2022-10-11 10:50 | PM.CNNEP ---
Assessment and Plan Assessment and plan (1) Hyponatremia: Code(s): E87.1 - Hypo-osmolality and hyponatremia Status: Acute Assessment and Plan: acute does have a history of this in October 2021 this was secondary oxybutynin use and excess free water intake - resolved with fluid restriction and normal saline IVFs recent labs with normal sodium aside from 10/03/22 ER visit -- sodium was 129mmol/L admission sodium 115, then 114, and most recently down to 110mmol/L reports symptoms of feeling foggy and not being able to think clearly (which could be secondary to the drop in sodium) etiology not clear denies excessive free water intake no culprit medicines (SSRI, thiazide diuretics, PPIs, narcotics...etc) however, does have BPH and smoking history/ COPD by pCXR ( both of which can predispose to low sodium levels) check TSH, cortisol, SPEP, UPEP, serum/urine osmo and urine electrolytes stop normal saline given worsening sodium 3% saline given x 3 hours -- will recheck sodium after infusion start fluid restriction follow repeat sodium levels (2) Hematuria: Code(s): R31.9 - Hematuria, unspecified Status: Acute Assessment and Plan: as noted by admission complaint and urinalysis holding anticoagulation r/o infection follow H/H (3) Acute UTI: Code(s): N39.0 - Urinary tract infection, site not specified Status: Acute Assessment and Plan: culture results for ER visit on 10/03/22 noted repeat urine culture pending on antibiotics (4) Afib: Qualifiers: Atrial fibrillation type: paroxysmal Qualified Code(s): I48.0 - Paroxysmal atrial fibrillation Code(s): I48.91 - Unspecified atrial fibrillation Status: Chronic Assessment and Plan: continue rate control strategy anticoagulation on hold (due to #2) I will continue to follow the patient with you while he remains hospitalized and make further recommendations as needed. Thank you for allowing me to participate in the care of this patient. History of Present Illness Reason for Consult Consult date: 10/11/22 Reason for consult: hyponatremia Chief Complaint Chief complaint: Hyponatremia/UTI/Hematuria History of Present Illness Narrative: The patient is a very pleasant 69-year-old male with a past medical history as outlined below who presented to [facility] Emergency room for further evaluation of hematuria and shortness of breath. The patient was just recently seen at [facility] ER about a week ago for similar symptoms. At that time, he was diagnosed with a urinary tract infection and discharged on oral antibiotic therapy. He did have a CT scan of his abdomen pelvis which did not demonstrate any other acute pathology. He was instructed to follow up with his outpatient urologist for further assessment. His hematuria apparently resolved while he was in the ER. He returns to the ER again yesterday for hematuria again but this time associated with the a for mentioned shortness of breath. Both of these symptoms seemed to be more present in the last 24-48 hours prior to his presentation and has been associated with generalized weakness, fatigue and fogginess and associated inability to concentrate. For all these reasons, he presented to the ER for further assessment Workup and evaluation emergency room demonstrated the patient to be hemodynamically stable and in no apparent distress. Routine blood work demonstrated severe hyponatremia with a sodium level of 114 but otherwise normal renal function and a urinalysis that demonstrated gross blood with the concern/possibility of a urinary tract infection. After appropriate cultures were obtained, he was started on empiric antibiotic therapy and also started on IV fluids with normal saline given his hyponatremia with subsequent admission for further evaluation and therapy. Since his admission, repeat labs hav
--- NOTE | 2022-10-11 10:50 | P.CONNP_ITS ---
Assessment and Plan Assessment and plan (1) Hyponatremia: Code(s): E87.1 - Hypo-osmolality and hyponatremia Status: Acute Assessment and Plan: * acute * does have a history of this in October 2021 * this was secondary oxybutynin use and excess free water intake - resolved with fluid restriction and normal saline IVFs * recent labs with normal sodium aside from 10/03/22 ER visit -- sodium was 129mmol/L * admission sodium 115, then 114, and most recently down to 110mmol/L * reports symptoms of feeling foggy and not being able to think clearly (which could be secondary to the drop in sodium) * etiology not clear * denies excessive free water intake * no culprit medicines (SSRI, thiazide diuretics, PPIs, narcotics...etc) * however, does have BPH and smoking history/ COPD by pCXR ( both of which can predispose to low sodium levels) * check TSH, cortisol, SPEP, UPEP, serum/urine osmo and urine electrolytes * stop normal saline given worsening sodium * 3% saline given x 3 hours -- will recheck sodium after infusion * start fluid restriction * follow repeat sodium levels (2) Hematuria: Code(s): R31.9 - Hematuria, unspecified Status: Acute Assessment and Plan: * as noted by admission complaint and urinalysis * holding anticoagulation * r/o infection * follow H/H (3) Acute UTI: Code(s): N39.0 - Urinary tract infection, site not specified Status: Acute Assessment and Plan: * culture results for ER visit on 10/03/22 noted * repeat urine culture pending * on antibiotics (4) Afib: Qualifiers: Atrial fibrillation type: paroxysmal Qualified Code(s): I48.0 - Paroxysmal atrial fibrillation Code(s): I48.91 - Unspecified atrial fibrillation Status: Chronic Assessment and Plan: * continue rate control strategy * anticoagulation on hold (due to #2) I will continue to follow the patient with you while he remains hospitalized and make further recommendations as needed. Thank you for allowing me to participate in the care of this patient. History of Present Illness Reason for Consult Consult date: 10/11/22 Reason for consult: hyponatremia Chief Complaint Chief complaint: Hyponatremia/UTI/Hematuria History of Present Illness Narrative: The patient is a very pleasant 69-year-old male with a past medical history as outlined below who presented to [facility] Emergency room for further evaluation of hematuria and shortness of breath. The patient was just recently seen at [facility] ER about a week ago for similar symptoms. At that time, he was diagnosed with a urinary tract infection and discharged on oral antibiotic therapy. He did have a CT scan of his abdomen pelvis which did not demonstrate any other acute pathology. He was instructed to follow up with his outpatient urologist for further assessment. His hematuria apparently resolved while he was in the ER. He returns to the ER again yesterday for hematuria again but this time associated with the a for mentioned shortness of breath. Both of these symptoms seemed to be more present in the last 24-48 hours prior to his presentation and has been associated with generalized weakness, fatigue and fogginess and associated inability to concentrate. For all these reasons, he presented to the ER for further assessment Workup and evaluation emergency room demonstrated the patient to be hemodynamically stable and in no apparent distress. Routine blood work demonstrated severe hyponatremia with a sodium level of 114 but otherwis
[2022-10-11] MEDS: TAMSULOSIN HCL 0.4 MG CAPSULE BY MOUTH (11:05)
[2022-10-11] MEDS: CHOLECALCIFEROL 1,000 UNITS TABLET 2000 UNITS PO (11:05)
[2022-10-11] MEDS: SODIUM CHLORIDE 3% 240 ML 80 ML IV CONT (11:05)
[2022-10-11] MEDS: amLODIPine BESYLATE 5 MG TABLET BY MOUTH (11:05)
[2022-10-11] MEDS: atenoloL 25 MG TABLET 75 MG BY MOUTH (11:06)
[2022-10-11] MEDS: SIMVASTATIN 20 MG TABLET PO (11:06)
[2022-10-11 16:32] LABS: Sodium 114 mmol/L (137-145)
[2022-10-11 19:28] LABS: Urea Random Urine 1288 MG/DL
[2022-10-11 19:39] LABS: Creatinine Urine 172.9 mg/dL
[2022-10-11 19:48] LABS: Sodium Urine Random 19 meq/L
[2022-10-11 20:50] LABS: Sodium 114 mmol/L (137-145)
[2022-10-12] VITALS (19 sets, daily range): BP systolic 112–148; BP diastolic 71–86; PULSE 78–96; RESP 18–26; TEMP 36.3–36.9; O2SAT 92–100
[2022-10-12 01:02] LABS: Sodium 111 mmol/L (137-145)
[2022-10-12] MEDS: SODIUM CHLORIDE 3% 240 ML 80 ML IVPB (01:44)
[2022-10-12 05:27] LABS: Alanine Aminotransferase 25 U/L (6-50); Albumin Level 3.4 g/dL (3.5-5.1); Alkaline Phosphatase 64 U/L (38-126); Anion Gap 7 mmol/L (8-16); Aspartate Amino Transferase 38 U/L (17-59); Bilirubin,Total 1.2 mg/dL (0.2-1.3); Blood Urea Nitrogen 16 mg/dL (9-20); Calcium 8.2 mg/dL (8.4-10.2); Carbon Dioxide 25 mmol/L (22-30); Chloride 86 mmol/L (98-107); Estimated CRCL calculation 112 ml/min; Estimated Glomerular Filt Rate > 60; Glucose 108 mg/dL (65-110); Potassium 4.2 mmol/L (3.4-5.0); Sodium 118 mmol/L (137-145)
[2022-10-12 05:48] LABS: Basophils Percent Auto 0.2 % (0.2-1.2); Hematocrit 35.3 % (42.0-52.0); Hemoglobin 12.7 g/dL (14.0-18.0); Immature Granulocyte Absolute 0.25 K/mm3 (0.00-0.031); Immature Granulocyte Percent A 1.7 % (0-0.5); Lymphocytes Absolute Auto 0.89 K/mm3 (0.9-3.2); Lymphocytes Percent Auto 6.1 % (18.3-44.2); Mean Corpuscular Hemoglobin 32.1 pg (26-34); Mean Corpuscular Volume 89.1 fl (80-100); Mean Platelet Volume 9.5 fl (7.4-10.4); Monocytes Absolute Auto 1.1 K/mm3 (0.1-0.6); Monocytes Percent Auto 7.7 % (2.6-8.5); Neutrophils Absolute Auto 12.3 K/mm3 (1.3-6.7); Neutrophils Percent Auto 84.3 % (45.5-73.1); Platelet Count Result 148 k/mm3 (150-375); Red Blood Count 3.96 M/mm3 (4.6-6.20); Red Cell Distribution Width 13.4 % (11.5-14.5); White Blood Count 14.6 K/mm3 (4.5-10.0)
--- NOTE | 2022-10-12 08:15 | PM.IMPN ---
Progress Note: A&P Assessment and Plan (1) Acute hyponatremia: Code(s): E87.1 - Hypo-osmolality and hyponatremia Status: Acute Assessment and Plan: Severe, 114 upon admission, 118 today Nephrology consult appreciated Sodium improved with 3% saline (2) Acute UTI: Code(s): N39.0 - Urinary tract infection, site not specified Status: Acute Assessment and Plan: Unsure if this is an infection or just hematuria from Eliquis with comorbid hyponatremia Started on Rocephin 10/11, switched to vancomycin 10/12 due to prior culture Follow-up urine culture Prior culture from earlier this month showed stenotrophomonas and coag-negative staph sensitive to Bactrim, Macrobid and vancomycin, will discontinue Rocephin and initiate vancomycin (3) Hematuria: Code(s): R31.9 - Hematuria, unspecified Status: Acute Assessment and Plan: Hold Eliquis (4) HLD (hyperlipidemia): Code(s): E78.5 - Hyperlipidemia, unspecified Status: Acute (5) BPH (benign prostatic hyperplasia): Code(s): N40.0 - Benign prostatic hyperplasia without lower urinary tract symptoms Status: Chronic Assessment and Plan: Continue tamsulosin (6) CAD (coronary artery disease): Qualifiers: Associated angina: without angina Coronary Disease-Associated Artery/Lesion type: [place] artery [place] vs. transplanted heart: [place] heart Qualified Code(s): I25.10 - Atherosclerotic heart disease of [place] coronary artery without angina pectoris Code(s): I25.10 - Atherosclerotic heart disease of [place] coronary artery without angina pectoris Status: Chronic (7) Afib: Qualifiers: Atrial fibrillation type: paroxysmal Qualified Code(s): I48.0 - Paroxysmal atrial fibrillation Code(s): I48.91 - Unspecified atrial fibrillation Status: Chronic Assessment and Plan: Currently rate controlled, Eliquis on hold Monitor (8) COPD (chronic obstructive pulmonary disease): Code(s): J44.9 - Chronic obstructive pulmonary disease, unspecified Status: Acute Assessment and Plan: Nebs, refer to pulm outpatient for PFTs Prednisone 40 mg daily x 5 days, end date Oct 16 Plan DVT prophylaxis with SCDs, Eliquis on hold due to hematuria GI prophylaxis not indicated Code status full code Subjective Date/time seen: 10/12/22 08:15 Interval history: 69-year-old male with history of AFib, colon cancer, heart disease, hypertension other comorbidities presenting with hematuria, shortness of breath and found to recurrent hyponatremia. No overnight events noted. No chest pain or shortness of breath. No nausea, vomiting or diarrhea. No fevers or chills. C/o wheezing and feeling weak. Review of Systems Review of Systems: 12 point review of systems was assessed and was negative except as noted in the HPI Exam Narrative: General: No acute distress, alert and oriented per baseline HEENT: Atraumatic, normocephalic, mucous membranes moist CV: Regular rate and rhythm, S1, S2 Lungs: Scattered wheeze, diminished at bases, no crackles Abdomen: Soft, nontender, nondistended Extremities: Normal to inspection Skin: No rashes noted, no lesions or wounds seen Psych: Euthymic, normal affect Objective Data Vital Signs Vital Signs: Vital Signs - 24 hr 10/11/22 11:06 10/11/22 12:00 10/11/22 13:18 Temperature 97.2 F L Pulse Rate 92 94 Respiratory Rate 20 Blood Pressure 144/78 H Pulse Oximetry 95 95 Oxygen Delivery Room Air 10/11/22 10:00 10/11/22 12:00 10/11/22 14:00 Temperature Pulse Rate 75 85 85 Respiratory Rate Blood Pressure Pulse Oximetry Oxygen Delivery 10/11/22 12:00 10/11/22 16:00 10/11/22 16:00 Temperature Pulse Rate 77 Respiratory Rate Blood Pressure Pulse Oximetry Oxygen Delivery Room Air Room Air 10/11/22 16:00 10/11/22 18:00 10/11/22
[2022-10-12 08:35] LABS: Sodium 115 mmol/L (137-145)
--- NOTE | 2022-10-12 09:50 | P.PNNP_ITS ---
Progress Note: A&P Assessment and Plan (1) Hyponatremia: Code(s): E87.1 - Hypo-osmolality and hyponatremia Status: Acute Assessment and Plan: * acute and still fluctuating * does have a history of this in October 2021 * this was secondary oxybutynin use and excess free water intake - resolved with fluid restriction and normal saline IVFs * recent labs with normal sodium aside from 10/03/22 ER visit -- sodium was 129mmol/L * admission sodium 115, then 114, and then down to 110mmol/L * reports symptoms of feeling foggy and not being able to think clearly (which could be secondary to the drop in sodium) * etiology not clear * denies excessive free water intake * no culprit medicines (SSRI, thiazide diuretics, PPIs, narcotics...etc) * however, does have BPH and smoking history/ COPD by pCXR (both of which ca n predispose to low sodium levels) * evaluation to date: * urine electrolytes prerenal (but no improvement in sodium with normal saline IVFs) * TSH and cortisol okay * SPEP/UPEP and serum/urine osmo pending * 3% saline given but sodium dropped again * make need further runs of 3% saline * on fluid restriction * consider salt tabs + low dose lasix * follow repeat sodium levels (2) Hematuria: Qualifiers: Hematuria type: unspecified type Qualified Code(s): R31.9 - Hematuria, unspecified Code(s): R31.9 - Hematuria, unspecified Status: Acute Assessment and Plan: * as noted by admission complaint and urinalysis * holding anticoagulation * r/o infection * Urology consulted * follow H/H (3) Acute UTI: Code(s): N39.0 - Urinary tract infection, site not specified Status: Acute Assessment and Plan: * culture results for ER visit on 10/03/22 noted * repeat urine culture pending * on antibiotics (4) Afib: Qualifiers: Atrial fibrillation type: paroxysmal Qualified Code(s): I48.0 - Paroxysmal atrial fibrillation Code(s): I48.91 - Unspecified atrial fibrillation Status: Chronic Assessment and Plan: * continue rate control strategy * anticoagulation on hold (due to #2) Will continue to follow. Subjective Date/time seen: 10/12/22 09:50 Interval history: Follow-up for acute hyponatremia. Sodium better - up to 118mmol/L earlier this AM with interventions to date (3% saline, fluid restriction but repeat sodium 4 hours later show sodium down to 115mmol/L; issues with gross hematuria noted as well. Exam Narrative: General: WD/WN male in NAD Heart: normal S1 and S2; no rub Lungs: scattered wheezes and decreased at bases Abdomen: soft, nontender, nondistended, positive bowel sounds Extremities: no cyanosis or clubbing; trace - 1+ edema Skin: warm and dry Objective Data Vital Signs Vital Signs: Vital Signs Temp Pulse Resp BP Pulse Ox O2 Del Method 10/12/22 08:00 97.7 F 80 22 H 138/82 95 10/12/22 06:00 88 10/12/22 04:00 93 Room Air 10/12/22 04:00 79 10/12/22 04:00 97.9 F 84 26 H 148/81 H 93 10/12/22 02:00 90 10/12/22 00:00 92 Room Air 10/12/22 00:00 82 10/11/22 22:00 74 10/11/22 20:00 92 Room Air 10/11/22 20:00 89 10/12/22 00:00 98.4 F 82 24 H 127/80 92 10/11/22
--- NOTE | 2022-10-12 09:50 | PM.PNNEP ---
Progress Note: A&P Assessment and Plan (1) Hyponatremia: Code(s): E87.1 - Hypo-osmolality and hyponatremia Status: Acute Assessment and Plan: acute and still fluctuating does have a history of this in October 2021 this was secondary oxybutynin use and excess free water intake - resolved with fluid restriction and normal saline IVFs recent labs with normal sodium aside from 10/03/22 ER visit -- sodium was 129mmol/L admission sodium 115, then 114, and then down to 110mmol/L reports symptoms of feeling foggy and not being able to think clearly (which could be secondary to the drop in sodium) etiology not clear denies excessive free water intake no culprit medicines (SSRI, thiazide diuretics, PPIs, narcotics...etc) however, does have BPH and smoking history/ COPD by pCXR (both of which can predispose to low sodium levels) evaluation to date: urine electrolytes prerenal (but no improvement in sodium with normal saline IVFs) TSH and cortisol okay SPEP/UPEP and serum/urine osmo pending 3% saline given but sodium dropped again make need further runs of 3% saline on fluid restriction consider salt tabs + low dose lasix follow repeat sodium levels (2) Hematuria: Qualifiers: Hematuria type: unspecified type Qualified Code(s): R31.9 - Hematuria, unspecified Code(s): R31.9 - Hematuria, unspecified Status: Acute Assessment and Plan: as noted by admission complaint and urinalysis holding anticoagulation r/o infection Urology consulted follow H/H (3) Acute UTI: Code(s): N39.0 - Urinary tract infection, site not specified Status: Acute Assessment and Plan: culture results for ER visit on 10/03/22 noted repeat urine culture pending on antibiotics (4) Afib: Qualifiers: Atrial fibrillation type: paroxysmal Qualified Code(s): I48.0 - Paroxysmal atrial fibrillation Code(s): I48.91 - Unspecified atrial fibrillation Status: Chronic Assessment and Plan: continue rate control strategy anticoagulation on hold (due to #2) Will continue to follow. Subjective Date/time seen: 10/12/22 09:50 Interval history: Follow-up for acute hyponatremia. Sodium better - up to 118mmol/L earlier this AM with interventions to date (3% saline, fluid restriction but repeat sodium 4 hours later show sodium down to 115mmol/L; issues with gross hematuria noted as well. Exam Narrative: General: WD/WN male in NAD Heart: normal S1 and S2; no rub Lungs: scattered wheezes and decreased at bases Abdomen: soft, nontender, nondistended, positive bowel sounds Extremities: no cyanosis or clubbing; trace - 1+ edema Skin: warm and dry Objective Data Vital Signs Vital Signs: Vital Signs Temp Pulse Resp BP Pulse Ox O2 Del Method 10/12/22 08:00 97.7 F 80 22 H 138/82 95 10/12/22 06:00 88 10/12/22 04:00 93 Room Air 10/12/22 04:00 79 10/12/22 04:00 97.9 F 84 26 H 148/81 H 93 10/12/22 02:00 90 10/12/22 00:00 92 Room Air 10/12/22 00:00 82 10/11/22 22:00 74 10/11/22 20:00 92 Room Air 10/11/22 20:00 89 10/12/22 00:00 98.4 F 82 24 H 127/80 92 10/11/22 20:00 98 F 85 20 137/93 H 93 10/11/22 18:00 81 10/11/22 16:00 97.6 F 78 32 H 118/66 97 10/11/22 16:00 77 10/11/22 16:00 Room Air 10/11/22 14:00 85 10/11/22 13:18 95 Room Air Intake/Output Intake/Output: Intake & Output 10/09/22 10/10/22 10/11/22 10/12/22 23:59 23:59 23:59 23:59 Intake Total 2650 1030 Output Total 625 580 Balance 2024 450 Meds/Results Medications: Active Medications Generic Name Dose Route Start Last Admin Trade Name Freq PRN Reason Stop Dose Admin Amlodipine Besylate 5 mg 10/11/22 09:00 10/12/22 10:01 Amlodipine Besylate 5 Mg Tablet BY MOUTH 5 mg DAILY MK Administratio
[2022-10-12] MEDS: amLODIPine BESYLATE 5 MG TABLET BY MOUTH (10:01)
[2022-10-12] MEDS: atenoloL 25 MG TABLET 75 MG BY MOUTH (10:01)
[2022-10-12] MEDS: TAMSULOSIN HCL 0.4 MG CAPSULE BY MOUTH (10:02)
[2022-10-12] MEDS: SIMVASTATIN 20 MG TABLET PO (10:02)
[2022-10-12] MEDS: CHOLECALCIFEROL 1,000 UNITS TABLET 2000 UNITS PO (10:02)
[2022-10-12] MEDS: CYANOCOBALAMIN 250 MCG TABLET BY MOUTH (10:04)
[2022-10-12 12:21] LABS: Sodium 112 mmol/L (137-145)
[2022-10-12] MEDS: FUROSEMIDE 10 MG TABLET PO ×2 (13:49→18:05)
[2022-10-12] MEDS: predniSONE 20 MG TABLET 40 MG PO (13:49)
[2022-10-12] MEDS: SODIUM CHLORIDE 500 MG TABLET 1000 MG PO ×2 (13:50→18:05)
[2022-10-12] MEDS: IPRATROPIUM BR 0.02% INH SOLN 0.5 MG/2.5 ML VIAL INHALATION ×2 (14:01→20:58)
[2022-10-12] MEDS: ALBUTEROL SULFATE NEB 2.5 MG/3 ML INH INHALATION ×2 (14:01→20:59)
[2022-10-12 16:27] LABS: Sodium 110 mmol/L (137-145)
--- NOTE | 2022-10-12 16:57 | WPDURCON ---
Assessment and Plan Assessment and plan (1) Acute UTI: Code(s): N39.0 - Urinary tract infection, site not specified Status: Acute Assessment and Plan: Repeat urine culture pending, continue Vancomycin, tailor antibiotics to culture results. (2) Hematuria: Code(s): R31.9 - Hematuria, unspecified Status: Acute Assessment and Plan: No etiology for hematuria on CT scan. I suspect it may be related to Eliquis, UTI or BPH. Follow up in the office for an outpatient cysto to further evaluate. (3) BPH (benign prostatic hyperplasia): Code(s): N40.0 - Benign prostatic hyperplasia without lower urinary tract symptoms Status: Chronic Assessment and Plan: Continue Tamsulosin, start Finasteride for maximum BPH therapy. Urology Consult Note HPI Date Seen: 10/12/22 Time Seen: 09:30 Requesting Physician: Carmen Bennett MD Primary Care Provider: Tal Olsen MD Consult Narrative Reason for consult: Gross Hematuria Narrative: Marcos Echeverria is a 77 year old male who presented to the ER for hematuria and SOB initially. He was recently treated for a UTI, which improved his symptoms, however he then began to have gross hematuria again a few days ago. He denies dysuria, frequency or urgency, straining or flank pain. He is afebrile, creatinine is 0.50WBC is 14.6 and he is currently on Eliquis. His most recent urine culture grew two strands of bacteria, Stenotrophomonas and coagulase negative staph. He was changed from Rocephin to Vancomycin for better coverage. He is also hyponatremic at 115. He had a CT scan and KUB today which shows Bladder wall thickening, most likely due to outlet obstruction from enlarged prostate gland. Cystitis less favored. Review of Systems Cardiovascular: Cardiovascular: Denies chest pain Respiratory: Respiratory: Reports no additional respiratory complaints Gastrointestinal: Gastrointestinal: Denies abdominal pain, Denies nausea and Denies vomiting Genitourinary: Genitourinary: Reports hematuria, Denies dysuria, Denies flank pain, Denies urinary frequency, Denies urinary hesitancy, Denies urinary incontinence and Denies urinary urgency PMFSH Past Medical History Medical History Abnormal CT scan, chest Abnormal EKG Adenomatous colon polyp Afib Atherosclerotic heart disease of [place] coronary artery with angina pectoris B12 deficiency Bowel habit changes Chronic atrial fibrillation Colon cancer screening Enlarged prostate without lower urinary tract symptoms (luts) Essential (primary) hypertension Gastro-esophageal reflux disease without esophagitis HTN (hypertension) Hyperglycemia Incontinence of feces Lung nodule Mixed hyperlipidemia Non-rheumatic mitral regurgitation Other hyperlipidemia Overweight (04/22/15) Positive colorectal cancer screening using Cologuard test Smoking Tobacco abuse Vitamin D deficiency Surgical History Surgical History H/O heart artery stent History of aortic aneurysm repair History of cardiac cath History of endovascular stent graft for abdominal aortic aneurysm History of transurethral resection of prostate Family History Family History Father Acute myocardial infarction Social History Social History Social History: the patient lives with his he has 3 children. His is the durable power senior trial attorney for healthcare. The patient retired from [employer] still. He denies any alcohol marijuana or illicit drugs. Code status full code Smoking packs per day: 1.5 Smoking cigarettes per day: 30.0 Years smoked: 54 Smoking pack-years: 81.00 Smoking status: Former smoker Tobacco type: cigarettes Second hand tobacco smoke exposure: Yes Smoking end
[2022-10-12] MEDS: SODIUM CHLORIDE 3% 240 ML 80 ML IV CONT (18:44)
[2022-10-12 23:53] LABS: Sodium 113 mmol/L (137-145)
[2022-10-13] VITALS (22 sets, daily range): BP systolic 98–152; BP diastolic 53–82; PULSE 82–115; RESP 16–20; TEMP 36.1–37; O2SAT 93–100
--- NOTE | 2022-10-13 00:16 | PC.NURSE ---
Reported Na [address] Gee. He states he will re evaluate in am.
--- NOTE | 2022-10-13 01:54 | PC.NURSE ---
patient restless, reapeating over and over and this, and this, and this...I'm cold, i'm cold, i'm cold, etc . This nurse entered room after medical safety director left to find patient sideways in the bed. Patient pulling at iv line saying, what's this, what's this, what's this . Comfort needs addressed over and over again. Toileting, fluids, crackers, lots of covers. Patient able to be redirected for a couple of minutes only. Orders received from Dr. Bennett for mittens to preserve iv line and holdol for anxiety. Staff at bedside at this time.
[2022-10-13] MEDS: IPRATROPIUM BR 0.02% INH SOLN 0.5 MG/2.5 ML VIAL INHALATION ×4 (02:26→19:31)
[2022-10-13] MEDS: ALBUTEROL SULFATE NEB 2.5 MG/3 ML INH INHALATION ×4 (02:26→19:31)
[2022-10-13 05:03] LABS: Basophils Percent Auto 0.2 % (0.2-1.2); Hematocrit 35.3 % (42.0-52.0); Hemoglobin 12.5 g/dL (14.0-18.0); Immature Granulocyte Absolute 0.21 K/mm3 (0.00-0.031); Immature Granulocyte Percent A 1.7 % (0-0.5); Lymphocytes Absolute Auto 0.59 K/mm3 (0.9-3.2); Lymphocytes Percent Auto 4.6 % (18.3-44.2); Mean Corpuscular HGB Conc 35.4 g/dl (32-36); Mean Corpuscular Hemoglobin 32.1 pg (26-34); Mean Corpuscular Volume 90.5 fl (80-100); Mean Platelet Volume 9.4 fl (7.4-10.4); Monocytes Absolute Auto 0.6 K/mm3 (0.1-0.6); Monocytes Percent Auto 4.7 % (2.6-8.5); Neutrophils Absolute Auto 11.3 K/mm3 (1.3-6.7); Neutrophils Percent Auto 88.8 % (45.5-73.1); Platelet Count Result 146 k/mm3 (150-375); Red Cell Distribution Width 13.2 % (11.5-14.5); White Blood Count 12.7 K/mm3 (4.5-10.0)
[2022-10-13 05:15] LABS: Alanine Aminotransferase 27 U/L (6-50); Alkaline Phosphatase 55 U/L (38-126); Anion Gap 4 mmol/L (8-16); Aspartate Amino Transferase 42 U/L (17-59); Bilirubin,Total 0.9 mg/dL (0.2-1.3); Blood Urea Nitrogen 16 mg/dL (9-20); Calcium 7.9 mg/dL (8.4-10.2); Carbon Dioxide 25 mmol/L (22-30); Chloride 84 mmol/L (98-107); Estimated CRCL calculation 113 ml/min; Estimated Glomerular Filt Rate > 60; Glucose 137 mg/dL (65-110); Potassium 3.9 mmol/L (3.4-5.0); Sodium 113 mmol/L (137-145)
--- NOTE | 2022-10-13 07:50 | PM.IMPN ---
Progress Note: A&P Assessment and Plan (1) Acute hyponatremia: Code(s): E87.1 - Hypo-osmolality and hyponatremia Status: Acute Assessment and Plan: Severe, 114 upon admission, 113 today Nephrology consult appreciated Sodium improved with 3% saline (2) Acute UTI: Code(s): N39.0 - Urinary tract infection, site not specified Status: Acute Assessment and Plan: Unsure if this is an infection or just hematuria from Eliquis with comorbid hyponatremia Started on Rocephin 10/11, switched to vancomycin 10/12 due to prior culture Follow-up urine culture Prior culture from earlier this month showed stenotrophomonas and coag-negative staph sensitive to Bactrim, Macrobid and vancomycin, will discontinue Rocephin and initiate vancomycin Culture negative, d/c abx (3) Hematuria: Code(s): R31.9 - Hematuria, unspecified Status: Acute Assessment and Plan: Hold Eliquis (4) HLD (hyperlipidemia): Code(s): E78.5 - Hyperlipidemia, unspecified Status: Acute (5) BPH (benign prostatic hyperplasia): Code(s): N40.0 - Benign prostatic hyperplasia without lower urinary tract symptoms Status: Chronic Assessment and Plan: Continue tamsulosin (6) CAD (coronary artery disease): Qualifiers: Associated angina: without angina Coronary Disease-Associated Artery/Lesion type: [place] artery [place] vs. transplanted heart: [place] heart Qualified Code(s): I25.10 - Atherosclerotic heart disease of [place] coronary artery without angina pectoris Code(s): I25.10 - Atherosclerotic heart disease of [place] coronary artery without angina pectoris Status: Chronic (7) Afib: Qualifiers: Atrial fibrillation type: paroxysmal Qualified Code(s): I48.0 - Paroxysmal atrial fibrillation Code(s): I48.91 - Unspecified atrial fibrillation Status: Chronic Assessment and Plan: Currently rate controlled, Eliquis on hold Monitor (8) COPD (chronic obstructive pulmonary disease): Code(s): J44.9 - Chronic obstructive pulmonary disease, unspecified Status: Acute Assessment and Plan: Nebs, refer to pulm outpatient for PFTs Prednisone 40 mg daily x 5 days, end date Oct 16 Plan Constipation: miralax daily DVT prophylaxis with SCDs, Eliquis on hold due to hematuria GI prophylaxis not indicated Code status full code Subjective Date/time seen: 10/13/22 07:50 Interval history: 69-year-old male with history of AFib, colon cancer, heart disease, hypertension other comorbidities presenting with hematuria, shortness of breath and found to recurrent hyponatremia. No overnight events noted. No chest pain or shortness of breath. No nausea, vomiting or diarrhea. No fevers or chills. C/o constipation, no BM x 2-3 days Review of Systems Review of Systems: 12 point review of systems was assessed and was negative except as noted in the HPI Exam Narrative: General: No acute distress, alert and oriented per baseline HEENT: Atraumatic, normocephalic, mucous membranes moist CV: Regular rate and rhythm, S1, S2 Lungs: Scattered wheeze, diminished at bases, no crackles Abdomen: Soft, nontender, nondistended Extremities: Normal to inspection Skin: No rashes noted, no lesions or wounds seen Psych: Euthymic, normal affect Objective Data Vital Signs Vital Signs: Vital Signs - 24 hr 10/12/22 08:00 10/12/22 10:01 10/12/22 12:00 Temperature 97.7 F 97.5 F L Pulse Rate 80 96 86 Respiratory Rate 22 H 20 Blood Pressure 138/82 137/86 Pulse Oximetry 95 93 Oxygen Delivery 10/12/22 14:04 10/12/22 14:21 10/12/22 16:00 Temperature 97.9 F Pulse Rate 78 80 89 Respiratory Rate 20 20 18 Blood Pressure 112/72 Pulse Oximetry 95 Oxygen Delivery 10/12/22 08:00 10/12/22 10:00 10/12/22 12:00 Temperature Pulse Rate 90 91 92 Respiratory Rate Blood Pressure Pu
[2022-10-13 08:38] LABS: Sodium 118 mmol/L (137-145)
--- NOTE | 2022-10-13 09:38 | P.PNNP_ITS ---
Progress Note: A&P Assessment and Plan (1) Hyponatremia: Code(s): E87.1 - Hypo-osmolality and hyponatremia Status: Acute Assessment and Plan: * acute and still fluctuating * does have a history of this in October 2021 * this was secondary oxybutynin use and excess free water intake - resolved with fluid restriction and normal saline IVFs * recent labs with normal sodium aside from 10/03/22 ER visit -- sodium was 129mmol/L * admission sodium 115, then 114, and then down to 110mmol/L * reports symptoms of feeling foggy and not being able to think clearly (which could be secondary to the drop in sodium) * etiology not clear * denies excessive free water intake * no culprit medicines (SSRI, thiazide diuretics, PPIs, narcotics...etc) * however, does have BPH and smoking history/ COPD by pCXR (both of which ca n predispose to low sodium levels) * evaluation to date: * urine electrolytes prerenal (but no improvement in sodium with normal saline IVFs) * TSH and cortisol okay * SPEP/UPEP and serum/urine osmo pending * 3% saline given but sodium dropped again * make need further runs of 3% saline * on fluid restriction * added salt tabs + low dose lasix * follow repeat sodium levels (2) Hematuria: Qualifiers: Hematuria type: unspecified type Qualified Code(s): R31.9 - Hematuria, unspecified Code(s): R31.9 - Hematuria, unspecified Status: Acute Assessment and Plan: * as noted by admission complaint and urinalysis * holding anticoagulation * r/o infection * Urology consulted * follow H/H (3) Acute UTI: Code(s): N39.0 - Urinary tract infection, site not specified Status: Acute Assessment and Plan: * culture results for ER visit on 10/03/22 noted * repeat urine culture reviewed * on antibiotics (4) Afib: Qualifiers: Atrial fibrillation type: paroxysmal Qualified Code(s): I48.0 - Paroxysmal atrial fibrillation Code(s): I48.91 - Unspecified atrial fibrillation Status: Chronic Assessment and Plan: * continue rate control strategy * anticoagulation on hold (due to #2) Will continue to follow. Subjective Date/time seen: 10/13/22 09:38 Interval history: Follow-up for acute hyponatremia. Sodium continues to remain low so salt tablets + low dose lasix initiated to try to help this issue; seen by Urology and on CBI to help with hematuria; no other acute issues voiced at this time. Exam Narrative: General: WD/WN male in NAD Heart: normal S1 and S2; no rub Lungs: scattered wheezes and decreased at bases Abdomen: soft, nontender, nondistended, positive bowel sounds Extremities: no cyanosis or clubbing; trace - 1+ edema Skin: warm and intact Objective Data Vital Signs Vital Signs: Vital Signs Temp Pulse Resp BP Pulse Ox O2 Del Method 10/13/22 09:50 99 10/13/22 08:00 88 18 10/13/22 07:46 91 18 10/13/22 07:46 93 Room Air 10/13/22 07:44 98.6 F 98 18 132/77 95 10/13/22 04:00 97.6 F 83 20 152/63 H 97 10/13/22 04:00 82 10/13/22 04:00 91 20 100 Room Air 10/13/22 02:00 86 10/13/22 00:00 101 H 10/12/22 22:00 93 10/13/22 02:36 91 20 10/13/22 02:29 85 20
--- NOTE | 2022-10-13 09:38 | PM.PNNEP ---
Progress Note: A&P Assessment and Plan (1) Hyponatremia: Code(s): E87.1 - Hypo-osmolality and hyponatremia Status: Acute Assessment and Plan: acute and still fluctuating does have a history of this in October 2021 this was secondary oxybutynin use and excess free water intake - resolved with fluid restriction and normal saline IVFs recent labs with normal sodium aside from 10/03/22 ER visit -- sodium was 129mmol/L admission sodium 115, then 114, and then down to 110mmol/L reports symptoms of feeling foggy and not being able to think clearly (which could be secondary to the drop in sodium) etiology not clear denies excessive free water intake no culprit medicines (SSRI, thiazide diuretics, PPIs, narcotics...etc) however, does have BPH and smoking history/ COPD by pCXR (both of which can predispose to low sodium levels) evaluation to date: urine electrolytes prerenal (but no improvement in sodium with normal saline IVFs) TSH and cortisol okay SPEP/UPEP and serum/urine osmo pending 3% saline given but sodium dropped again make need further runs of 3% saline on fluid restriction added salt tabs + low dose lasix follow repeat sodium levels (2) Hematuria: Qualifiers: Hematuria type: unspecified type Qualified Code(s): R31.9 - Hematuria, unspecified Code(s): R31.9 - Hematuria, unspecified Status: Acute Assessment and Plan: as noted by admission complaint and urinalysis holding anticoagulation r/o infection Urology consulted follow H/H (3) Acute UTI: Code(s): N39.0 - Urinary tract infection, site not specified Status: Acute Assessment and Plan: culture results for ER visit on 10/03/22 noted repeat urine culture reviewed on antibiotics (4) Afib: Qualifiers: Atrial fibrillation type: paroxysmal Qualified Code(s): I48.0 - Paroxysmal atrial fibrillation Code(s): I48.91 - Unspecified atrial fibrillation Status: Chronic Assessment and Plan: continue rate control strategy anticoagulation on hold (due to #2) Will continue to follow. Subjective Date/time seen: 10/13/22 09:38 Interval history: Follow-up for acute hyponatremia. Sodium continues to remain low so salt tablets + low dose lasix initiated to try to help this issue; seen by Urology and on CBI to help with hematuria; no other acute issues voiced at this time. Exam Narrative: General: WD/WN male in NAD Heart: normal S1 and S2; no rub Lungs: scattered wheezes and decreased at bases Abdomen: soft, nontender, nondistended, positive bowel sounds Extremities: no cyanosis or clubbing; trace - 1+ edema Skin: warm and intact Objective Data Vital Signs Vital Signs: Vital Signs Temp Pulse Resp BP Pulse Ox O2 Del Method 10/13/22 09:50 99 10/13/22 08:00 88 18 10/13/22 07:46 91 18 10/13/22 07:46 93 Room Air 10/13/22 07:44 98.6 F 98 18 132/77 95 10/13/22 04:00 97.6 F 83 20 152/63 H 97 10/13/22 04:00 82 10/13/22 04:00 91 20 100 Room Air 10/13/22 02:00 86 10/13/22 00:00 101 H 10/12/22 22:00 93 10/13/22 02:36 91 20 10/13/22 02:29 85 20 10/12/22 20:00 92 10/13/22 00:00 91 20 100 Room Air 10/12/22 23:34 97.4 F L 91 20 135/74 100 10/12/22 20:00 88 20 96 Room Air 10/12/22 21:09 88 20 10/12/22 21:03 96 Room Air 10/12/22 20:58 88 20 10/12/22 20:00 97.8 F 80 20 141/71 H 97 10/12/22 18:00 79 10/12/22 16:00 79 10/12/22 14:00 80 10/12/22 12:00 92 10/12/22 16:00 97.9 F 89 18 112/72 95 10/12/22 14:21 80 20 10/12/22 14:04 78 20 10/12/22 12:00 97.5 F L 86 20 137/86 93 Intake/Output Intake/Output: Intake & Output 10/10/22 10/11/22 10/12/22 10/13/22 23:59 23:59 23:59 23:59 Intake Total 2650 2470 440 Output To
[2022-10-13] MEDS: predniSONE 20 MG TABLET 40 MG PO (09:50)
[2022-10-13] MEDS: atenoloL 25 MG TABLET 75 MG BY MOUTH (09:50)
[2022-10-13] MEDS: amLODIPine BESYLATE 5 MG TABLET BY MOUTH (09:50)
[2022-10-13] MEDS: FINASTERIDE 5 MG TABLET PO (09:51)
[2022-10-13] MEDS: SIMVASTATIN 20 MG TABLET PO (09:51)
[2022-10-13] MEDS: TAMSULOSIN HCL 0.4 MG CAPSULE BY MOUTH (09:51)
[2022-10-13] MEDS: CHOLECALCIFEROL 1,000 UNITS TABLET 2000 UNITS PO (09:51)
[2022-10-13] MEDS: SODIUM CHLORIDE 500 MG TABLET 1000 MG PO (09:52)
[2022-10-13] MEDS: FUROSEMIDE 10 MG TABLET PO (09:52)
[2022-10-13 12:11] LABS: Sodium 117 mmol/L (137-145)
[2022-10-13] MEDS: polyethylene glycoL 3350 17 GM POWD.PACK PO (12:28)
--- NOTE | 2022-10-13 13:05 | WPDUROPN2 ---
Progress Note: A&P Assessment and Plan (1) Hematuria: Code(s): R31.9 - Hematuria, unspecified Status: Acute Assessment and Plan: Start CBI, irrigate PRN for clots. Wean CBI to off when clear. No etiology for hematuria on CT, urine culture negative. I suspect it is from BPH, restarted Finasteride, continue Tamsulosin. F/U in the office for an outpatient cystoscopy. Will monitor CBI and urine until clear, when urine clears, will attempt a voiding trial. (2) BPH (benign prostatic hyperplasia): Code(s): N40.0 - Benign prostatic hyperplasia without lower urinary tract symptoms Status: Chronic Subjective Subjective Date/Time Seen: 10/13/22 13:05 Principal diagnosis: Gross Hematuria/BPH Interval history: CT scan shows no etiology for gross hematuria. Urine Culture is negative. WBC is 12.7, creatinine 0.50. Urine remains dark and bloody, draining in ewing to gravity. Finasteride added, Tamsulosin continued. Patient feeling ok, no complaints of pain at this time. Review of Systems Cardiovascular: Cardiovascular: Denies chest pain Respiratory: Respiratory: Reports no additional respiratory complaints Gastrointestinal: Gastrointestinal: Denies abdominal pain, Denies nausea and Denies vomiting Genitourinary: Genitourinary: Reports hematuria and Denies flank pain Exam Resp: Effort & Inspection: normal respiratory effort Cardio: Rate: regular rate GI: GI Palp: Yes Soft to palpation and No Tenderness to palpation present (GI) : General: Yes no CVA tenderness Urinary Catheter: Urinary Catheter: patent and draining, urine dark and urine red Extrem: Right lower extremity: no edema Left lower extremity: no edema Objective Data Vital Signs Vital Signs: Vital Signs - 24 hr 10/12/22 14:04 10/12/22 14:21 10/12/22 16:00 Temperature 97.9 F Pulse Rate 78 80 89 Respiratory Rate 20 20 18 Blood Pressure 112/72 Pulse Oximetry 95 Oxygen Delivery 10/12/22 14:00 10/12/22 16:00 10/12/22 18:00 Temperature Pulse Rate 80 79 79 Respiratory Rate Blood Pressure Pulse Oximetry Oxygen Delivery 10/12/22 20:00 10/12/22 20:58 10/12/22 21:03 Temperature 97.8 F Pulse Rate 80 88 Respiratory Rate 20 20 Blood Pressure 141/71 H Pulse Oximetry 97 96 Oxygen Delivery Room Air 10/12/22 21:09 10/12/22 20:00 10/12/22 23:34 Temperature 97.4 F L Pulse Rate 88 88 91 Respiratory Rate 20 20 20 Blood Pressure 135/74 Pulse Oximetry 96 100 Oxygen Delivery Room Air 10/13/22 00:00 10/12/22 20:00 10/13/22 02:29 Temperature Pulse Rate 91 92 85 Respiratory Rate 20 20 Blood Pressure Pulse Oximetry 100 Oxygen Delivery Room Air 10/13/22 02:36 10/12/22 22:00 10/13/22 00:00 Temperature Pulse Rate 91 93 101 H Respiratory Rate 20 Blood Pressure Pulse Oximetry Oxygen Delivery 10/13/22 02:00 10/13/22 04:00 10/13/22 04:00 Temperature Pulse Rate 86 91 82 Respiratory Rate 20 Blood Pressure Pulse Oximetry 100 Oxygen Delivery Room Air 10/13/22 04:00 10/13/22 07:44 10/13/22 07:46 Temperature 97.6 F 98.6 F Pulse Rate 83 98 Respiratory Rate 20 18 Blood Pressure 152/63 H 132/77 Pulse Oximetry 97 95 93 Oxygen Delivery Room Air 10/13/22 07:46 10/13/22 08:00 10/13/22 09:50 Temperature Pulse Rate 91 88 99 Respiratory Rate 18 18 Blood Pressure Pulse Oximetry Oxygen Delivery 10/13/22 12:00 Temperature 97.9 F Pulse Rate 104 H Respiratory Rate 16 Blood Pressure 134/64 Pulse Oximetry 94 Oxygen Delivery Intake/Output Intake/Output: Intake & Output 10/10/22 10/11/22 10/12/22 10/13/22 23:59 23:59 23:59 23:59 Intake Total 2650 2470 440 Output Total 625 980 500 Balance 5 1490 -60 Meds/Results Medications: Active Medications Generic Name Dose Route Start Last Admin Trade Name Freq PRN Reason Stop Dose Admin Albuterol 2.5 mg 10/12/22 14:00 10/13/22 0
[2022-10-13 16:37] LABS: Sodium 113 mmol/L (137-145)
[2022-10-13] MEDS: FUROSEMIDE 20 MG TABLET PO (17:35)
[2022-10-13] MEDS: SODIUM CHLORIDE 1 GM TABLET PO (17:35)
[2022-10-13 21:01] LABS: Sodium 117 mmol/L (137-145)
[2022-10-14] VITALS (23 sets, daily range): BP systolic 111–135; BP diastolic 68–88; PULSE 95–118; RESP 18–20; TEMP 36.1–36.6; O2SAT 94–99
[2022-10-14 00:22] LABS: Sodium 116 mmol/L (137-145)
[2022-10-14] MEDS: ALBUTEROL SULFATE NEB 2.5 MG/3 ML INH INHALATION ×4 (01:34→20:04)
[2022-10-14] MEDS: IPRATROPIUM BR 0.02% INH SOLN 0.5 MG/2.5 ML VIAL INHALATION ×4 (01:34→20:03)
[2022-10-14 05:05] LABS: Basophils Percent Auto 0.2 % (0.2-1.2); Hematocrit 37.5 % (42.0-52.0); Hemoglobin 13.4 g/dL (14.0-18.0); Immature Granulocyte Absolute 0.18 K/mm3 (0.00-0.031); Immature Granulocyte Percent A 1.2 % (0-0.5); Lymphocytes Absolute Auto 0.81 K/mm3 (0.9-3.2); Lymphocytes Percent Auto 5.4 % (18.3-44.2); Mean Corpuscular HGB Conc 35.7 g/dl (32-36); Mean Corpuscular Hemoglobin 31.6 pg (26-34); Mean Corpuscular Volume 88.4 fl (80-100); Monocytes Absolute Auto 0.7 K/mm3 (0.1-0.6); Monocytes Percent Auto 4.4 % (2.6-8.5); Neutrophils Absolute Auto 13.4 K/mm3 (1.3-6.7); Neutrophils Percent Auto 88.8 % (45.5-73.1); Platelet Count Result 189 k/mm3 (150-375); Red Blood Count 4.24 M/mm3 (4.6-6.20); Red Cell Distribution Width 13.1 % (11.5-14.5); White Blood Count 15.1 K/mm3 (4.5-10.0)
[2022-10-14 05:23] LABS: Alanine Aminotransferase 36 U/L (6-50); Albumin Level 3.4 g/dL (3.5-5.1); Alkaline Phosphatase 58 U/L (38-126); Anion Gap 4 mmol/L (8-16); Aspartate Amino Transferase 53 U/L (17-59); Bilirubin,Total 1.1 mg/dL (0.2-1.3); Blood Urea Nitrogen 18 mg/dL (9-20); Calcium 8.4 mg/dL (8.4-10.2); Carbon Dioxide 31 mmol/L (22-30); Chloride 79 mmol/L (98-107); Estimated CRCL calculation 113 ml/min; Estimated Glomerular Filt Rate > 60; Glucose 129 mg/dL (65-110); Potassium 3.9 mmol/L (3.4-5.0); Sodium 114 mmol/L (137-145)
[2022-10-14] MEDS: SODIUM CHLORIDE 3% 240 ML 80 ML IVPB (07:49)
[2022-10-14] MEDS: predniSONE 20 MG TABLET 40 MG PO (10:12)
[2022-10-14] MEDS: polyethylene glycoL 3350 17 GM POWD.PACK PO (10:14)
[2022-10-14] MEDS: amLODIPine BESYLATE 5 MG TABLET BY MOUTH (10:15)
[2022-10-14] MEDS: atenoloL 25 MG TABLET 75 MG BY MOUTH (10:15)
[2022-10-14] MEDS: CHOLECALCIFEROL 1,000 UNITS TABLET 2000 UNITS PO (10:16)
[2022-10-14] MEDS: FINASTERIDE 5 MG TABLET PO (10:16)
[2022-10-14] MEDS: CYANOCOBALAMIN 250 MCG TABLET BY MOUTH (10:16)
[2022-10-14] MEDS: TAMSULOSIN HCL 0.4 MG CAPSULE BY MOUTH (10:17)
[2022-10-14] MEDS: SIMVASTATIN 20 MG TABLET PO (10:17)
[2022-10-14] MEDS: SODIUM CHLORIDE 1 GM TABLET PO ×2 (10:17→13:04)
[2022-10-14] MEDS: FUROSEMIDE 10 MG TABLET PO ×3 (10:17→18:09)
[2022-10-14 12:08] LABS: Sodium 118 mmol/L (137-145)
--- NOTE | 2022-10-14 12:39 | WPDUROPN2 ---
Progress Note: A&P Assessment and Plan (1) Hematuria: Code(s): R31.9 - Hematuria, unspecified Status: Acute Assessment and Plan: Resolved, CBI off. Ok to remove ewing and do voiding trial. F/u as outpatient for cystoscopy. Call office to schedule. (2) BPH (benign prostatic hyperplasia): Code(s): N40.0 - Benign prostatic hyperplasia without lower urinary tract symptoms Status: Chronic Assessment and Plan: Continue Finasteride and Flomax. No further evaluation needed. Subjective Subjective Date/Time Seen: 10/14/22 12:39 Principal diagnosis: Gross Hematuria Interval history: Patient resting comfortably, sleeping. Urine is clear off CBI. Review of Systems Review of Systems: ROS unobtainable: Yes other (sleeping) Exam Const: General: comfortable Resp: Effort & Inspection: normal respiratory effort Cardio: Rate: regular rate GI: Inspection: normal to inspection Urinary Catheter: Urinary Catheter: patent and draining and urine clear Extrem: Right lower extremity: no edema Left lower extremity: no edema Objective Data Vital Signs Vital Signs: Vital Signs - 24 hr 10/13/22 15:00 10/13/22 15:10 10/13/22 15:54 Temperature 98 F Pulse Rate 102 H 96 101 H Respiratory Rate 18 18 18 Blood Pressure 128/82 Pulse Oximetry 95 Oxygen Delivery 10/13/22 19:31 10/13/22 19:41 10/13/22 14:00 Temperature Pulse Rate 111 H 95 88 Respiratory Rate 18 18 Blood Pressure Pulse Oximetry Oxygen Delivery 10/13/22 16:00 10/13/22 18:00 10/13/22 20:00 Temperature 97 F L Pulse Rate 99 103 H 99 Respiratory Rate 20 Blood Pressure 145/76 H Pulse Oximetry 99 Oxygen Delivery 10/13/22 20:00 10/13/22 20:00 10/13/22 22:00 Temperature Pulse Rate 99 101 H 102 H Respiratory Rate 20 Blood Pressure Pulse Oximetry 99 Oxygen Delivery Room Air 10/13/22 23:48 10/14/22 00:00 10/14/22 01:34 Temperature 97.8 F Pulse Rate 113 H 113 H 115 H Respiratory Rate 20 20 18 Blood Pressure 98/53 L Pulse Oximetry 98 98 Oxygen Delivery Room Air 10/14/22 01:42 10/14/22 00:00 10/14/22 02:00 Temperature Pulse Rate 118 H 110 H 106 H Respiratory Rate 18 Blood Pressure Pulse Oximetry Oxygen Delivery 10/14/22 04:00 10/14/22 04:00 10/14/22 04:00 Temperature 97.6 F Pulse Rate 106 H 106 H 104 H Respiratory Rate 18 20 Blood Pressure 135/88 Pulse Oximetry 98 97 Oxygen Delivery Room Air 10/14/22 06:00 10/14/22 08:00 10/14/22 09:12 Temperature 97.7 F Pulse Rate 101 H 112 H 105 H Respiratory Rate 18 18 Blood Pressure 131/74 Pulse Oximetry 95 Oxygen Delivery 10/14/22 09:16 10/14/22 09:28 10/14/22 10:15 Temperature Pulse Rate 105 H 102 H 116 H Respiratory Rate 18 18 Blood Pressure Pulse Oximetry 94 Oxygen Delivery Room Air Intake/Output Intake/Output: Intake & Output 10/11/22 10/12/22 10/13/22 10/14/22 23:59 23:59 23:59 23:59 Intake Total 2650 2470 920 240 Output Total 012 834 8252 1250 Balance 6 3796 -5934 -1010 Meds/Results Medications: Active Medications Generic Name Dose Route Start Last Admin Trade Name Freq PRN Reason Stop Dose Admin Albuterol 2.5 mg 10/12/22 14:00 10/14/22 09:11 Albuterol Sulfate Neb 2.5 Mg/3 Ml Inh INHALATION 2.5 mg Q6HRT MK Administration Amlodipine Besylate 5 mg 10/11/22 09:00 10/14/22 10:15 Amlodipine Besylate 5 Mg Tablet BY MOUTH 5 mg DAILY MK Administration Atenolol 75 mg 10/11/22 09:00 10/14/22 10:15 Atenolol 25 Mg Tablet BY MOUTH 75 mg DAILY MK Administration Cyanocobalamin 250 mcg 10/12/22 09:00 10/14/22 10:16 Cyanocobalamin 250 Mcg Tablet BY MOUTH 250 mcg [id number] MK Administration Finasteride 5 mg 10/13/22 09:00 10/14/22 10:16 Finasteride 5 Mg Tablet PO 5 mg QAM MK Administration Furosemide 10 mg 10/14/22 09:00 10/14/22 10:17 Furosemide 10 Mg Ta
--- NOTE | 2022-10-14 12:50 | P.PNNP_ITS ---
Progress Note: A&P Assessment and Plan (1) Hyponatremia: Code(s): E87.1 - Hypo-osmolality and hyponatremia Status: Acute Assessment and Plan: * acute and still fluctuating * does have a history of this in October 2021 * this was secondary oxybutynin use and excess free water intake - resolved with fluid restriction and normal saline IVFs * recent labs with normal sodium aside from 10/03/22 ER visit -- sodium was 129mmol/L * admission sodium 115 but dropped to as low as 110mmol/L * reports symptoms of feeling foggy and not being able to think clearly (which could be secondary to the drop in sodium) * etiology not clear * denies excessive free water intake * no culprit medicines (SSRI, thiazide diuretics, PPIs, narcotics...etc) * however, does have BPH and smoking history/ COPD by pCXR (both of which can predispose to low sodium levels) * evaluation to date: * urine electrolytes prerenal (but no improvement in sodium with normal saline IVFs) * TSH and cortisol okay * SPEP/UPEP and serum/urine osmo pending * 3% saline given but sodium dropped again * make need further runs of 3% saline * on fluid restriction * added salt tabs + low dose lasix -- will titrate frequency and possibly dose if necessary * follow repeat sodium levels (2) Hematuria: Qualifiers: Hematuria type: unspecified type Qualified Code(s): R31.9 - Hematuria, unspecified Code(s): R31.9 - Hematuria, unspecified Status: Acute Assessment and Plan: * as noted by admission complaint and urinalysis * holding anticoagulation * r/o infection * Urology following with recommendations noted * follow H/H (3) Acute UTI: Code(s): N39.0 - Urinary tract infection, site not specified Status: Acute Assessment and Plan: * culture results for ER visit on 10/03/22 noted * repeat urine culture reviewed (negative) * off antibiotics (4) Afib: Qualifiers: Atrial fibrillation type: paroxysmal Qualified Code(s): I48.0 - Paroxysmal atrial fibrillation Code(s): I48.91 - Unspecified atrial fibrillation Status: Chronic Assessment and Plan: * continue rate control strategy * anticoagulation on hold (due to #2) Will continue to follow. Subjective Date/time seen: 10/14/22 12:50 Interval history: Follow-up for acute hyponatremia. S/P another run of 3% saline earlier this morning due to low sodium again despite interventions to date; surprisingly, despite persistent hyponatremia, remains relatively asymptomatic; LE edema better and hematuria appears resolved wtth CBI. Exam Narrative: General: WD/WN male in NAD Heart: normal S1 and S2; no rub Lungs: scattered wheezes and decreased at bases Abdomen: soft, nontender, nondistended, positive bowel sounds Extremities: no cyanosis or clubbing; trace - 1+ edema Skin: no rash Objective Data Vital Signs Vital Signs: Vital Signs Temp Pulse Resp BP Pulse Ox O2 Del Method 10/14/22 12:00 97.7 F 104 H 18 124/71 96 10/14/22 10:15 116 H 10/14/22 09:28 102 H 18 10/14/22 09:16 105 H 18 94 Room Air 10/14/22 09:12 105 H 18 10/14/22 08:00 97.7 F 112 H 18 131/74 95 10/14/22 06:00 101 H 10/14/22 04:00 104 H 10/14/22 04:00 97.6 F 106 H 20 135
--- NOTE | 2022-10-14 12:50 | PM.PNNEP ---
Progress Note: A&P Assessment and Plan (1) Hyponatremia: Code(s): E87.1 - Hypo-osmolality and hyponatremia Status: Acute Assessment and Plan: acute and still fluctuating does have a history of this in October 2021 this was secondary oxybutynin use and excess free water intake - resolved with fluid restriction and normal saline IVFs recent labs with normal sodium aside from 10/03/22 ER visit -- sodium was 129mmol/L admission sodium 115 but dropped to as low as 110mmol/L reports symptoms of feeling foggy and not being able to think clearly (which could be secondary to the drop in sodium) etiology not clear denies excessive free water intake no culprit medicines (SSRI, thiazide diuretics, PPIs, narcotics...etc) however, does have BPH and smoking history/ COPD by pCXR (both of which can predispose to low sodium levels) evaluation to date: urine electrolytes prerenal (but no improvement in sodium with normal saline IVFs) TSH and cortisol okay SPEP/UPEP and serum/urine osmo pending 3% saline given but sodium dropped again make need further runs of 3% saline on fluid restriction added salt tabs + low dose lasix -- will titrate frequency and possibly dose if necessary follow repeat sodium levels (2) Hematuria: Qualifiers: Hematuria type: unspecified type Qualified Code(s): R31.9 - Hematuria, unspecified Code(s): R31.9 - Hematuria, unspecified Status: Acute Assessment and Plan: as noted by admission complaint and urinalysis holding anticoagulation r/o infection Urology following with recommendations noted follow H/H (3) Acute UTI: Code(s): N39.0 - Urinary tract infection, site not specified Status: Acute Assessment and Plan: culture results for ER visit on 10/03/22 noted repeat urine culture reviewed (negative) off antibiotics (4) Afib: Qualifiers: Atrial fibrillation type: paroxysmal Qualified Code(s): I48.0 - Paroxysmal atrial fibrillation Code(s): I48.91 - Unspecified atrial fibrillation Status: Chronic Assessment and Plan: continue rate control strategy anticoagulation on hold (due to #2) Will continue to follow. Subjective Date/time seen: 10/14/22 12:50 Interval history: Follow-up for acute hyponatremia. S/P another run of 3% saline earlier this morning due to low sodium again despite interventions to date; surprisingly, despite persistent hyponatremia, remains relatively asymptomatic; LE edema better and hematuria appears resolved wtth CBI. Exam Narrative: General: WD/WN male in NAD Heart: normal S1 and S2; no rub Lungs: scattered wheezes and decreased at bases Abdomen: soft, nontender, nondistended, positive bowel sounds Extremities: no cyanosis or clubbing; trace - 1+ edema Skin: no rash Objective Data Vital Signs Vital Signs: Vital Signs Temp Pulse Resp BP Pulse Ox O2 Del Method 10/14/22 12:00 97.7 F 104 H 18 124/71 96 10/14/22 10:15 116 H 10/14/22 09:28 102 H 18 10/14/22 09:16 105 H 18 94 Room Air 10/14/22 09:12 105 H 18 10/14/22 08:00 97.7 F 112 H 18 131/74 95 10/14/22 06:00 101 H 10/14/22 04:00 104 H 10/14/22 04:00 97.6 F 106 H 20 135/88 97 10/14/22 04:00 106 H 18 98 Room Air 10/14/22 02:00 106 H 10/14/22 00:00 110 H 10/14/22 01:42 118 H 18 10/14/22 01:34 115 H 18 10/14/22 00:00 113 H 20 98 Room Air 10/13/22 23:48 97.8 F 113 H 20 98/53 L 98 10/13/22 22:00 102 H 10/13/22 20:00 101 H 10/13/22 20:00 99 20 99 Room Air 10/13/22 20:00 97 F L 99 20 145/76 H 99 10/13/22 18:00 103 H 10/13/22 16:00 99 10/13/22 19:41 95 18 10/13/22 19:31 111 H 18 10/13/22 15:54 98 F 101 H 18 128/82 95 Intake/Output Intake/Output: Intake & Output 10/11/22 10/12/22 10/13/22 08/0
[2022-10-14 16:28] LABS: Sodium 116 mmol/L (137-145)
--- NOTE | 2022-10-14 17:08 | PM.IMPN ---
Progress Note: A&P Assessment and Plan (1) Acute hyponatremia: Code(s): E87.1 - Hypo-osmolality and hyponatremia Status: Acute Assessment and Plan: Severe, 114 upon admission, 116 today at 1600 Nephrology consult appreciated Sodium improved with 3% saline Continues on fluid restriction Monitor lab work Monitor flight engineer clinical response (2) Acute UTI: Code(s): N39.0 - Urinary tract infection, site not specified Status: Acute Assessment and Plan: Unsure if this is an infection or just hematuria from Eliquis with comorbid hyponatremia Started on Rocephin 10/11, switched to vancomycin 10/12 due to prior culture Follow-up urine culture Prior culture from earlier this month showed stenotrophomonas and coag-negative staph sensitive to Bactrim, Macrobid and vancomycin, will discontinue Rocephin and initiate vancomycin Culture negative, d/c abx (3) Hematuria: Qualifiers: Hematuria type: unspecified type Qualified Code(s): R31.9 - Hematuria, unspecified Code(s): R31.9 - Hematuria, unspecified Status: Acute Assessment and Plan: Hold Eliquis (4) HLD (hyperlipidemia): Qualifiers: Hyperlipidemia type: unspecified Qualified Code(s): E78.5 - Hyperlipidemia, unspecified Code(s): E78.5 - Hyperlipidemia, unspecified Status: Acute (5) BPH (benign prostatic hyperplasia): Qualifiers: Lower urinary tract symptom detail: unspecified Code(s): N40.0 - Benign prostatic hyperplasia without lower urinary tract symptoms Status: Chronic Assessment and Plan: Continue tamsulosin (6) CAD (coronary artery disease): Qualifiers: Coronary Disease-Associated Artery/Lesion type: [place] artery [place] vs. transplanted heart: [place] heart Associated angina: without angina Qualified Code(s): I25.10 - Atherosclerotic heart disease of [place] coronary artery without angina pectoris Code(s): I25.10 - Atherosclerotic heart disease of [place] coronary artery without angina pectoris Status: Chronic (7) Afib: Qualifiers: Atrial fibrillation type: paroxysmal Qualified Code(s): I48.0 - Paroxysmal atrial fibrillation Code(s): I48.91 - Unspecified atrial fibrillation Status: Chronic Assessment and Plan: Currently rate controlled, Eliquis on hold Monitor flight engineer vital signs (8) COPD (chronic obstructive pulmonary disease): Qualifiers: COPD type: unspecified COPD Qualified Code(s): J44.9 - Chronic obstructive pulmonary disease, unspecified Code(s): J44.9 - Chronic obstructive pulmonary disease, unspecified Status: Acute Assessment and Plan: Nebs, refer to pulm outpatient for PFTs Prednisone 40 mg daily x 5 days, end date Oct 16 Plan Constipation: miralax daily DVT prophylaxis with SCDs, Eliquis on hold due to hematuria GI prophylaxis not indicated Code status full code Subjective Date/time seen: 10/14/22 1030 Interval history: on rounding patient and the hours position with eyes closed processes like her stimuli and is oriented x4. States he is feeling much better. States he had had some hallucinations earlier in day but that seems to have been resolved. Review of Systems Review of Systems: All systems reviewed & are unremarkable except as noted in HPI and below Neurologic: Reports confusion ( Patient reports some hallucinations earlier in the morning) Psychiatric: Psychiatric: Reports no additional psychiatric complaints Exam Const: General: comfortable and no acute distress HENMT: Face/Nose/Sinus: Normal nares present Mouth: Yes moist mucous membranes Eyes: General: appearance normal, both eyes and all related structures Neck: Neck: supple and no JVD Resp: Effort & Inspection: normal respiratory effort Auscultation: wheezes ( expiratory wheezing throughout) Other: patient
[2022-10-14] MEDS: SODIUM CHLORIDE 500 MG TABLET 1500 MG PO (18:08)
[2022-10-14 21:04] LABS: Sodium 116 mmol/L (137-145)
[2022-10-14 21:28] LABS: Osmolality, Urine 799 mOsm/kg (50-1200)
[2022-10-14] MEDS: ONDANSETRON INJ 4 MG/2 ML VIAL IV PUSH (23:55)
[2022-10-15] VITALS (24 sets, daily range): BP systolic 92–148; BP diastolic 41–95; PULSE 83–140; RESP 18–20; TEMP 36.2–37; O2SAT 91–100
[2022-10-15 00:41] LABS: Sodium 116 mmol/L (137-145)
[2022-10-15] MEDS: IPRATROPIUM BR 0.02% INH SOLN 0.5 MG/2.5 ML VIAL INHALATION ×4 (02:07→20:08)
[2022-10-15] MEDS: ALBUTEROL SULFATE NEB 2.5 MG/3 ML INH INHALATION ×4 (02:08→20:08)
[2022-10-15 02:17] LABS: Albumin 2.9 g/dL (3.8-4.8); Alpha 1 Globulin 0.4 g/dL (0.2-0.3); Alpha 2 Globulin 0.8 g/dL (0.5-0.9); Beta 1 Globulin 0.5 g/dL (0.4-0.6); Gamma Globulin 0.9 g/dL (0.8-1.7); Protein, Total 5.8 g/dL (6.1-8.1)
[2022-10-15 04:43] LABS: Basophils Percent Auto 0.2 % (0.2-1.2); Hematocrit 38.1 % (42.0-52.0); Hemoglobin 13.6 g/dL (14.0-18.0); Immature Granulocyte Absolute 0.13 K/mm3 (0.00-0.031); Immature Granulocyte Percent A 0.9 % (0-0.5); Lymphocytes Absolute Auto 0.91 K/mm3 (0.9-3.2); Lymphocytes Percent Auto 6.1 % (18.3-44.2); Mean Corpuscular HGB Conc 35.7 g/dl (32-36); Mean Corpuscular Hemoglobin 31.8 pg (26-34); Mean Platelet Volume 8.7 fl (7.4-10.4); Monocytes Absolute Auto 0.8 K/mm3 (0.1-0.6); Monocytes Percent Auto 5.1 % (2.6-8.5); Neutrophils Absolute Auto 13.2 K/mm3 (1.3-6.7); Neutrophils Percent Auto 87.7 % (45.5-73.1); Platelet Count Result 170 k/mm3 (150-375); Red Blood Count 4.28 M/mm3 (4.6-6.20); Red Cell Distribution Width 13.4 % (11.5-14.5)
[2022-10-15 05:04] LABS: Alanine Aminotransferase 41 U/L (6-50); Albumin Level 3.3 g/dL (3.5-5.1); Alkaline Phosphatase 64 U/L (38-126); Anion Gap 6 mmol/L (8-16); Aspartate Amino Transferase 52 U/L (17-59); Bilirubin,Total 1.2 mg/dL (0.2-1.3); Blood Urea Nitrogen 18 mg/dL (9-20); Calcium 8.2 mg/dL (8.4-10.2); Carbon Dioxide 30 mmol/L (22-30); Chloride 82 mmol/L (98-107); Estimated CRCL calculation 113 ml/min; Estimated Glomerular Filt Rate > 60; Glucose 111 mg/dL (65-110); Potassium 3.9 mmol/L (3.4-5.0); Sodium 118 mmol/L (137-145)
--- NOTE | 2022-10-15 07:53 | PM.IMPN ---
Progress Note: A&P Assessment and Plan (1) Acute hyponatremia: Code(s): E87.1 - Hypo-osmolality and hyponatremia Status: Acute Assessment and Plan: Severe, 114 upon admission, 118 8/ Nephrology consult appreciated Sodium slowly improving with 3% saline Continues on fluid restriction (2) Acute UTI: Code(s): N39.0 - Urinary tract infection, site not specified Status: Acute Assessment and Plan: Unsure if this is an infection or just hematuria from Eliquis with comorbid hyponatremia Started on Rocephin 10/11, switched to vancomycin 10/12 due to prior culture Follow-up urine culture Prior culture from earlier this month showed stenotrophomonas and coag-negative staph sensitive to Bactrim, Macrobid and vancomycin, will discontinue Rocephin and initiate vancomycin Culture negative, d/c abx (3) Hematuria: Qualifiers: Hematuria type: unspecified type Qualified Code(s): R31.9 - Hematuria, unspecified Code(s): R31.9 - Hematuria, unspecified Status: Acute Assessment and Plan: Hold Eliquis (4) HLD (hyperlipidemia): Qualifiers: Hyperlipidemia type: unspecified Qualified Code(s): E78.5 - Hyperlipidemia, unspecified Code(s): E78.5 - Hyperlipidemia, unspecified Status: Acute (5) BPH (benign prostatic hyperplasia): Qualifiers: Lower urinary tract symptom detail: unspecified Code(s): N40.0 - Benign prostatic hyperplasia without lower urinary tract symptoms Status: Chronic Assessment and Plan: Continue tamsulosin (6) CAD (coronary artery disease): Qualifiers: Associated angina: without angina Coronary Disease-Associated Artery/Lesion type: [place] artery [place] vs. transplanted heart: [place] heart Qualified Code(s): I25.10 - Atherosclerotic heart disease of [place] coronary artery without angina pectoris Code(s): I25.10 - Atherosclerotic heart disease of [place] coronary artery without angina pectoris Status: Chronic (7) Afib: Qualifiers: Atrial fibrillation type: paroxysmal Qualified Code(s): I48.0 - Paroxysmal atrial fibrillation Code(s): I48.91 - Unspecified atrial fibrillation Status: Chronic Assessment and Plan: Currently rate controlled, Eliquis on hold (8) COPD (chronic obstructive pulmonary disease): Qualifiers: COPD type: unspecified COPD Qualified Code(s): J44.9 - Chronic obstructive pulmonary disease, unspecified Code(s): J44.9 - Chronic obstructive pulmonary disease, unspecified Status: Acute Assessment and Plan: Nebs, refer to pulm outpatient for PFTs Prednisone 40 mg daily x 5 days, end date Oct 16 Plan Constipation: miralax daily DVT prophylaxis with SCDs, Eliquis on hold due to hematuria GI prophylaxis not indicated Code status full code Subjective Date/time seen: 10/15/22 07:53 Interval history: No overnight events noted. No chest pain or shortness of breath. No nausea, vomiting or diarrhea. No fevers or chills. Review of Systems Review of Systems: 12 point review of systems was assessed and was negative except as noted in the HPI Exam Narrative: General: No acute distress, alert and oriented per baseline HEENT: Atraumatic, normocephalic, mucous membranes moist CV: Regular rate and rhythm, S1, S2 Lungs: Scattered wheeze, diminished at bases, no crackles Abdomen: Soft, nontender, nondistended Extremities: Normal to inspection Skin: No rashes noted, no lesions or wounds seen Psych: Euthymic, normal affect Objective Data Vital Signs Vital Signs: Vital Signs - 24 hr 10/14/22 08:00 10/14/22 09:12 10/14/22 09:16 Temperature 97.7 F Pulse Rate 112 H 105 H 105 H Respiratory Rate 18 18 18 Blood Pressure 131/74 Pulse Oximetry 95 94 Oxygen Delivery Room Air 10/14/22 09:28 10/14/22 10:15 10/14/22 12:00 Temperature 97.7 F
[2022-10-15] MEDS: amLODIPine BESYLATE 5 MG TABLET BY MOUTH (08:24)
[2022-10-15] MEDS: SIMVASTATIN 20 MG TABLET PO (08:25)
[2022-10-15] MEDS: SODIUM CHLORIDE 500 MG TABLET 1500 MG PO ×3 (08:25→17:43)
[2022-10-15] MEDS: predniSONE 20 MG TABLET 40 MG PO (08:26)
[2022-10-15] MEDS: atenoloL 25 MG TABLET 75 MG BY MOUTH (08:26)
[2022-10-15] MEDS: TAMSULOSIN HCL 0.4 MG CAPSULE BY MOUTH (08:26)
[2022-10-15] MEDS: FINASTERIDE 5 MG TABLET PO (08:26)
[2022-10-15] MEDS: CHOLECALCIFEROL 1,000 UNITS TABLET 2000 UNITS PO (08:27)
[2022-10-15] MEDS: polyethylene glycoL 3350 17 GM POWD.PACK PO (08:27)
[2022-10-15] MEDS: FUROSEMIDE 10 MG TABLET 15 MG PO ×3 (08:38→17:43)
[2022-10-15 11:02] LABS: Sodium 117 mmol/L (137-145)
[2022-10-15 11:26] LABS: Kappa\\Lambda Light Chains 1.56 (0.26-1.65); Lambda Light Chain 10.3 mg/L (5.7-26.3)
--- NOTE | 2022-10-15 12:48 | P.PNNP_ITS ---
Progress Note: A&P Assessment and Plan (1) Hyponatremia: Code(s): E87.1 - Hypo-osmolality and hyponatremia Status: Acute Assessment and Plan: * acute and still fluctuating * highest sodium able to be achieved is 118mmol/L * does have a history of this in October 2021 * this was secondary oxybutynin use and excess free water intake - resolved with fluid restriction and normal saline IVFs * recent labs with normal sodium aside from 10/03/22 ER visit -- sodium was 129mmol/L * admission sodium 115 but dropped to as low as 110mmol/L * reports symptoms of feeling foggy and not being able to think clearly (which could be secondary to the drop in sodium) * etiology not clear * denies excessive free water intake * no culprit medicines (SSRI, thiazide diuretics, PPIs, narcotics...etc) * however, does have BPH and smoking history/ COPD by pCXR (both of which can predispose to low sodium levels) * evaluation to date: * urine electrolytes prerenal (but no improvement in sodium with normal saline IVFs) * TSH and cortisol okay * SPEP/UPEP and serum/urine osmo pending * 3% saline given several times but sodium still remains low * on fluid restriction * added salt tabs + low dose lasix -- titrating frequency and dose * follow repeat sodium levels (2) Hematuria: Qualifiers: Hematuria type: unspecified type Qualified Code(s): R31.9 - Hematuria, unspecified Code(s): R31.9 - Hematuria, unspecified Status: Acute Assessment and Plan: * resolved * as noted by admission complaint and urinalysis * holding anticoagulation * Urology following with recommendations noted * follow H/H (3) Acute UTI: Code(s): N39.0 - Urinary tract infection, site not specified Status: Acute Assessment and Plan: * culture results for ER visit on 10/03/22 noted * repeat urine culture reviewed (negative) * off antibiotics (4) Afib: Qualifiers: Atrial fibrillation type: paroxysmal Qualified Code(s): I48.0 - Paroxysmal atrial fibrillation Code(s): I48.91 - Unspecified atrial fibrillation Status: Chronic Assessment and Plan: * continue rate control strategy * anticoagulation on hold (due to #2) Will continue to follow. Subjective Date/time seen: 10/15/22 12:48 Interval history: Follow-up for acute hyponatremia. Despite current interventions, sodium still no optimized although does not appear symptomatic from this issues; titrating salt tabs, diuretics, and fluid restriction as noted; off CBI but patient and concerned about his perile edema; otherwise, no apparent distress noted. Exam Narrative: General: WD/WN male in NAD Heart: tachycardic, normal S1 and S2; no rub Lungs: few scattered wheezes and decreased at bases Abdomen: soft, nontender, nondistended, positive bowel sounds Extremities: no cyanosis or clubbing; trace edema Skin: no nodules Objective Data Vital Signs Vital Signs: Vital Signs Temp Pulse Resp BP Pulse Ox O2 Del Method FiO2 10/15/22 12:00 98.1 F 133 H 18 120/94 H 95 10/15/22 07:49 122 H 20 10/15/22 07:29 109 H 20 10/15/22 07:29 93 Room Air 21 10/15/22 08:26 120 H 10/15/22 07:59 98.2 F 122 H 18 139/95 H 100 10/15/22 06:00 88 10/15/22 04:00 Room
--- NOTE | 2022-10-15 12:48 | PM.PNNEP ---
Progress Note: A&P Assessment and Plan (1) Hyponatremia: Code(s): E87.1 - Hypo-osmolality and hyponatremia Status: Acute Assessment and Plan: acute and still fluctuating highest sodium able to be achieved is 118mmol/L does have a history of this in October 2021 this was secondary oxybutynin use and excess free water intake - resolved with fluid restriction and normal saline IVFs recent labs with normal sodium aside from 10/03/22 ER visit -- sodium was 129mmol/L admission sodium 115 but dropped to as low as 110mmol/L reports symptoms of feeling foggy and not being able to think clearly (which could be secondary to the drop in sodium) etiology not clear denies excessive free water intake no culprit medicines (SSRI, thiazide diuretics, PPIs, narcotics...etc) however, does have BPH and smoking history/ COPD by pCXR (both of which can predispose to low sodium levels) evaluation to date: urine electrolytes prerenal (but no improvement in sodium with normal saline IVFs) TSH and cortisol okay SPEP/UPEP and serum/urine osmo pending 3% saline given several times but sodium still remains low on fluid restriction added salt tabs + low dose lasix -- titrating frequency and dose follow repeat sodium levels (2) Hematuria: Qualifiers: Hematuria type: unspecified type Qualified Code(s): R31.9 - Hematuria, unspecified Code(s): R31.9 - Hematuria, unspecified Status: Acute Assessment and Plan: resolved as noted by admission complaint and urinalysis holding anticoagulation Urology following with recommendations noted follow H/H (3) Acute UTI: Code(s): N39.0 - Urinary tract infection, site not specified Status: Acute Assessment and Plan: culture results for ER visit on 10/03/22 noted repeat urine culture reviewed (negative) off antibiotics (4) Afib: Qualifiers: Atrial fibrillation type: paroxysmal Qualified Code(s): I48.0 - Paroxysmal atrial fibrillation Code(s): I48.91 - Unspecified atrial fibrillation Status: Chronic Assessment and Plan: continue rate control strategy anticoagulation on hold (due to #2) Will continue to follow. Subjective Date/time seen: 10/15/22 12:48 Interval history: Follow-up for acute hyponatremia. Despite current interventions, sodium still no optimized although does not appear symptomatic from this issues; titrating salt tabs, diuretics, and fluid restriction as noted; off CBI but patient and concerned about his perile edema; otherwise, no apparent distress noted. Exam Narrative: General: WD/WN male in NAD Heart: tachycardic, normal S1 and S2; no rub Lungs: few scattered wheezes and decreased at bases Abdomen: soft, nontender, nondistended, positive bowel sounds Extremities: no cyanosis or clubbing; trace edema Skin: no nodules Objective Data Vital Signs Vital Signs: Vital Signs Temp Pulse Resp BP Pulse Ox O2 Del Method FiO2 10/15/22 12:00 98.1 F 133 H 18 120/94 H 95 10/15/22 07:49 122 H 20 10/15/22 07:29 109 H 20 10/15/22 07:29 93 Room Air 21 10/15/22 08:26 120 H 10/15/22 07:59 98.2 F 122 H 18 139/95 H 100 10/15/22 06:00 88 10/15/22 04:00 Room Air 10/15/22 04:00 95 10/15/22 02:00 97 10/15/22 00:00 107 H 10/14/22 22:00 102 H 10/14/22 20:00 101 H 10/15/22 04:00 97.1 F L 110 H 20 124/76 98 10/15/22 02:20 92 18 10/15/22 02:08 89 18 10/15/22 00:00 Room Air 10/14/22 20:00 Room Air 10/14/22 22:45 98 F 96 20 115/71 99 10/14/22 20:00 97 F L 107 H 20 125/71 97 10/14/22 20:18 99 18 10/14/22 20:04 94 Room Air 10/14/22 20:04 100 18 10/14/22 18:00 95 10/14/22 16:00 95 10/14/22 16:00 97.9 F 98 18 111/68 96 Intake/Output Intake/
[2022-10-15] MEDS: PANTOPRAZOLE 40 MG TABLET PO (18:39)
[2022-10-15] MEDS: BISACODYL 10 MG SUPPOSITORY RECTAL (18:39)
[2022-10-15 19:15] LABS: Sodium 119 mmol/L (137-145)
[2022-10-15] MEDS: METOPROLOL TARTRATE INJ 5 MG/5 ML VIAL IV PUSH (21:00)
[2022-10-16] VITALS (24 sets, daily range): BP systolic 108–134; BP diastolic 66–82; PULSE 87–133; RESP 14–22; TEMP 36.2–36.7; O2SAT 93–100
[2022-10-16 00:58] LABS: Sodium 115 mmol/L (137-145)
[2022-10-16] MEDS: IPRATROPIUM BR 0.02% INH SOLN 0.5 MG/2.5 ML VIAL INHALATION ×4 (01:42→20:18)
[2022-10-16] MEDS: ALBUTEROL SULFATE NEB 2.5 MG/3 ML INH INHALATION ×4 (01:42→20:18)
[2022-10-16 06:10] LABS: Basophils Percent Auto 0.2 % (0.2-1.2); Hematocrit 39.6 % (42.0-52.0); Hemoglobin 14.2 g/dL (14.0-18.0); Immature Granulocyte Percent A 0.7 % (0-0.5); Lymphocytes Absolute Auto 1.09 K/mm3 (0.9-3.2); Lymphocytes Percent Auto 7.3 % (18.3-44.2); Mean Corpuscular HGB Conc 35.9 g/dl (32-36); Mean Corpuscular Hemoglobin 31.5 pg (26-34); Mean Corpuscular Volume 87.8 fl (80-100); Mean Platelet Volume 8.4 fl (7.4-10.4); Monocytes Absolute Auto 0.9 K/mm3 (0.1-0.6); Neutrophils Absolute Auto 12.8 K/mm3 (1.3-6.7); Neutrophils Percent Auto 85.8 % (45.5-73.1); Platelet Count Result 179 k/mm3 (150-375); Red Blood Count 4.51 M/mm3 (4.6-6.20); Red Cell Distribution Width 13.7 % (11.5-14.5); White Blood Count 14.9 K/mm3 (4.5-10.0)
[2022-10-16 06:29] LABS: Alanine Aminotransferase 42 U/L (6-50); Albumin Level 3.4 g/dL (3.5-5.1); Alkaline Phosphatase 69 U/L (38-126); Anion Gap 6 mmol/L (8-16); Aspartate Amino Transferase 51 U/L (17-59); Bilirubin,Total 1.6 mg/dL (0.2-1.3); Blood Urea Nitrogen 15 mg/dL (9-20); Calcium 8.3 mg/dL (8.4-10.2); Carbon Dioxide 32 mmol/L (22-30); Chloride 81 mmol/L (98-107); Estimated CRCL calculation 113 ml/min; Estimated Glomerular Filt Rate > 60; Glucose 105 mg/dL (65-110); Potassium 3.8 mmol/L (3.4-5.0); Sodium 119 mmol/L (137-145)
[2022-10-16] MEDS: atenoloL 25 MG TABLET 75 MG BY MOUTH (09:10)
[2022-10-16] MEDS: FINASTERIDE 5 MG TABLET PO (09:10)
[2022-10-16] MEDS: predniSONE 20 MG TABLET 40 MG PO (09:10)
[2022-10-16] MEDS: TAMSULOSIN HCL 0.4 MG CAPSULE BY MOUTH (09:10)
[2022-10-16] MEDS: SODIUM CHLORIDE 500 MG TABLET 2000 MG PO ×3 (09:10→18:33)
[2022-10-16] MEDS: amLODIPine BESYLATE 5 MG TABLET BY MOUTH (09:10)
[2022-10-16] MEDS: FUROSEMIDE 20 MG TABLET PO ×3 (09:10→18:33)
[2022-10-16] MEDS: SIMVASTATIN 20 MG TABLET PO (09:10)
[2022-10-16] MEDS: PANTOPRAZOLE 40 MG TABLET PO (09:10)
[2022-10-16] MEDS: CHOLECALCIFEROL 1,000 UNITS TABLET 2000 UNITS PO (09:11)
[2022-10-16] MEDS: CYANOCOBALAMIN 250 MCG TABLET BY MOUTH (09:13)
--- NOTE | 2022-10-16 09:19 | PCPTNOTE ---
HOLD PT eval 830, per WADE Corbin due to increased HR;
[2022-10-16 10:20] LABS: Magnesium 1.5 mg/dL (1.6-2.3)
[2022-10-16 10:22] LABS: Sodium 118 mmol/L (137-145)
--- NOTE | 2022-10-16 10:42 | PM.IMPN ---
Progress Note: A&P Assessment and Plan (1) Acute hyponatremia: Code(s): E87.1 - Hypo-osmolality and hyponatremia Status: Acute (2) Acute UTI: Code(s): N39.0 - Urinary tract infection, site not specified Status: Acute (3) Hematuria: Qualifiers: Hematuria type: unspecified type Qualified Code(s): R31.9 - Hematuria, unspecified Code(s): R31.9 - Hematuria, unspecified Status: Acute (4) HLD (hyperlipidemia): Qualifiers: Hyperlipidemia type: unspecified Qualified Code(s): E78.5 - Hyperlipidemia, unspecified Code(s): E78.5 - Hyperlipidemia, unspecified Status: Acute (5) BPH (benign prostatic hyperplasia): Qualifiers: Lower urinary tract symptom detail: unspecified Code(s): N40.0 - Benign prostatic hyperplasia without lower urinary tract symptoms Status: Chronic (6) CAD (coronary artery disease): Qualifiers: Coronary Disease-Associated Artery/Lesion type: [place] artery [place] vs. transplanted heart: [place] heart Associated angina: without angina Qualified Code(s): I25.10 - Atherosclerotic heart disease of [place] coronary artery without angina pectoris Code(s): I25.10 - Atherosclerotic heart disease of [place] coronary artery without angina pectoris Status: Chronic (7) Afib: Qualifiers: Atrial fibrillation type: paroxysmal Qualified Code(s): I48.0 - Paroxysmal atrial fibrillation Code(s): I48.91 - Unspecified atrial fibrillation Status: Chronic (8) COPD (chronic obstructive pulmonary disease): Qualifiers: COPD type: unspecified COPD Qualified Code(s): J44.9 - Chronic obstructive pulmonary disease, unspecified Code(s): J44.9 - Chronic obstructive pulmonary disease, unspecified Status: Acute Plan 69-year-old male with history of AFib, colon cancer, heart disease, hypertension and other comorbidities is presented with hematuria and shortness of breath.? He recently had a UTI that was treated with antibiotics and symptoms seem to resolve, however, he returned again and were also associated with shortness of breath and generalized weakness.? He also notes he has a history of hyponatremia requiring hospitalization.In the ER, his sodium was found to be 114. 1)Hyponatremia: Nephrology following Management as per renal 2)Hematuria: Resolved, CBI off. Gan has been removed F/u as outpatient for cystoscopy. Call office to schedule. Eliquis still on hold, will have to touch base with them as when it can be started 3)BPH:continue with finasteride, flomax 4)Parosysmal Afibb: Intermittent tachycardia with exertion Supplement magnesium Cardiology consult c/w Atenolol Eliquis on hold as above 5)UTI:Ruled out 6)Code:Full 7)DVT ppx:SCD 8)Dispo:pending improvement Time Spent With Patient Time with patient: 25 - 35 minutes Subjective Date/time seen: 10/16/22 10:42 Interval history: intermittent tachycardia noted with exertion no other complaints as per patient Review of Systems Review of Systems: 12 point review of systems was assessed and was negative except as noted in the HPI Exam Narrative: General: No acute distress, alert and oriented per baseline HEENT: Atraumatic, normocephalic, mucous membranes moist CV: intermittent tachycardia S1, S2 present Lungs: Scattered wheeze, diminished at bases, no crackles Abdomen: Soft, nontender, nondistended Extremities: Normal to inspection Skin: No rashes noted, no lesions or wounds seen Psych: Euthymic, normal affect Objective Data Vital Signs Vital Signs: Vital Signs - 24 hr 10/15/22 12:00 10/15/22 13:24 10/15/22 13:42 Temperature 98.1 F Pulse Rate 133 H 109 H 110 H Respiratory Rate 18 20 20 Blood Pressure 120/94 H Pulse Oximetry 95 Oxygen Delivery Fraction of Inspired Oxygen 10/15/22 12:00 10/15/22 14:00 10/15/22 16:00 Temperature 9
--- NOTE | 2022-10-16 11:43 | PM.CNCAR ---
Assessment and Plan Assessment and plan (1) Afib: Qualifiers: Atrial fibrillation type: paroxysmal Qualified Code(s): I48.0 - Paroxysmal atrial fibrillation Code(s): I48.91 - Unspecified atrial fibrillation Status: Chronic Assessment and Plan: Chronic atrial fibrillation managed with rate control strategy. Having RVR with activity with rates up to the 140's. He is asymptomatic with this. Since the RVR is intermittent and not causing any symptoms or hypotension, will continue with current dose of atenolol. He is hyponatremic and hypomagnesemic as well, correction of this should contribute to better controlled heart rate. If he becomes persistently tachycardic or symptomatic, would recommend increasing atenolol dose. Continue systemic a/cwith Eliquis. If he has ongoing problems with hematuria candidacy for LAAO device could be considered. Cardiology will sign off. Please call with questions. History of Present Illness History of Present Illness Consult date/time: 10/16/22 11:43 Requesting physician: Yesenia Leo MD Consult reason: atrial fibrillation Reason For Visit: Hyponatremia/UTI/Hematuria Narrative: Marcos Echeverria is a 77 year old male with a history of coronary artery disease, atrial fibrillation, and severe MR. This is a patient who is followed by Dr. Domingo. Patient presented to the hospital because of blood in his urine. His hematuria has resolved at this point following CBI and holding his eliquis. Cardiology is being asked to see him because of atrial fibrillation with rapid ventricular response. He denies feeling any palpitations, chest pain, shortness of breath. At rest his heart rate is reasonably controlled but he does have tachycardia with any activity. His atrial fibrillation is typically well controlled with atenolol. At the time of my visit with him he has no complaints and is lying comfortably in bed. Review of Systems Review of Systems: All systems reviewed & are unremarkable except as noted in HPI and below PMFSH Past Medical History Medical History Abnormal CT scan, chest Abnormal EKG Adenomatous colon polyp Afib Atherosclerotic heart disease of [place] coronary artery with angina pectoris B12 deficiency Bowel habit changes Chronic atrial fibrillation Colon cancer screening Enlarged prostate without lower urinary tract symptoms (luts) Essential (primary) hypertension Gastro-esophageal reflux disease without esophagitis HTN (hypertension) Hyperglycemia Incontinence of feces Lung nodule Mixed hyperlipidemia Non-rheumatic mitral regurgitation Other hyperlipidemia Overweight (04/22/15) Positive colorectal cancer screening using Cologuard test Smoking Tobacco abuse Vitamin D deficiency Surgical History Surgical History H/O heart artery stent History of aortic aneurysm repair History of cardiac cath History of endovascular stent graft for abdominal aortic aneurysm History of transurethral resection of prostate Family History Family History Father Acute myocardial infarction Social History Social History Social History: the patient lives with his he has 3 children. His is the durable power attorney at law for healthcare. The patient retired from [employer]. He denies any alcohol marijuana or illicit drugs. Code status full code Smoking packs per day: 1.5 Smoking cigarettes per day: 30.0 Years smoked: 54 Smoking pack-years: 81.00 Smoking status: Former smoker Tobacco type: cigarettes Second hand tobacco smoke exposure: Yes Smoking end date: 03/15/18 Additional smoking assessment comments: quit in 2019 Alcohol intake: former Substance use: never Substance use type: does not use
--- NOTE | 2022-10-16 12:40 | PCNWS ---
Addendum entered by April Engel RD, MICHELLEN 10/16/22 12:40: Intakes 50-100% on heart healthy diet. Average intakes 86%. Pt denied any problems. Feeling better. Original Note: Weekly nutritional screen. Patient is tolerating current diet with adequate intake. No weight loss reported. No nutritional needs at this time.
--- NOTE | 2022-10-16 12:46 | P.PNNP_ITS ---
Progress Note: A&P Assessment and Plan (1) Hyponatremia: Code(s): E87.1 - Hypo-osmolality and hyponatremia Status: Acute Assessment and Plan: * acute and still fluctuating * highest sodium able to be achieved to date is 119mmol/L * does have a history of this in October 2021 * this was secondary oxybutynin use and excess free water intake - resolved with fluid restriction and normal saline IVFs * recent labs with normal sodium aside from 10/03/22 ER visit -- sodium was 129mmol/L * admission sodium 115 but dropped to as low as 110mmol/L * reports symptoms of feeling foggy and not being able to think clearly (which could be secondary to the drop in sodium) * etiology not clear * denies excessive free water intake * no culprit medicines (SSRI, thiazide diuretics, PPIs, narcotics...etc) * however, does have BPH and smoking history/ COPD by pCXR (both of which can predispose to low sodium levels) * evaluation to date: * urine electrolytes prerenal (but no improvement in sodium with normal saline IVFs) * TSH and cortisol okay * SPEP negative for paraproteinemia; UPEP not done(?) - will reorder * urine osmolality 799, serum osmolality 248 * 3% saline given several times but sodium still remains low * on fluid restriction - will increase to 1200cc/24hr * added salt tabs + low dose lasix -- 2gram tid + lasix 20mg tid * follow repeat sodium levels (2) Hematuria: Qualifiers: Hematuria type: unspecified type Qualified Code(s): R31.9 - Hematuria, unspecified Code(s): R31.9 - Hematuria, unspecified Status: Acute Assessment and Plan: * resolved * as noted by admission complaint and urinalysis * holding anticoagulation on admission * Urology following with recommendations noted -- etiology thought to be secondary to BPH * follow H/H (3) Acute UTI: Code(s): N39.0 - Urinary tract infection, site not specified Status: Acute Assessment and Plan: * culture results for ER visit on 10/03/22 noted * repeat urine culture reviewed (negative) * off antibiotics (4) Afib: Qualifiers: Atrial fibrillation type: paroxysmal Qualified Code(s): I48.0 - Par oxysmal atrial fibrillation Code(s): I48.91 - Unspecified atrial fibrillation Status: Chronic Assessment and Plan: * continue rate control strategy * anticoagulation resumed Will continue to follow. Subjective Date/time seen: 10/16/22 12:46 Interval history: Follow-up for acute hyponatremia. Although sodium remains better than on admission, he has been quite resistant to all interventions to date to normalize serum sodium; despite low sodium at this time, he remains asymptomatic; no other issues/events overnight or earlier this morning. Exam Narrative: General: WD/WN male in NAD Heart: tachycardic, normal S1 and S2; no rub Lungs: few scattered wheezes and decreased at bases Abdomen: soft, nontender, nondistended, positive bowel sounds Extremities: no cyanosis or clubbing; trace edema Skin: warm and dry Objective Data Vital Signs Vital Signs: Vital Signs Temp Pulse Resp BP Pulse Ox O2 Del Method FiO2 10/16/22 12:09 97.8 F 98 18 133/76 96 10/16/22 10:00 108 H 10/16/22 08:00 Room Air 10/16/22 08:00 133 H 10/16/22 09:10 119 H
--- NOTE | 2022-10-16 12:46 | PM.PNNEP ---
Progress Note: A&P Assessment and Plan (1) Hyponatremia: Code(s): E87.1 - Hypo-osmolality and hyponatremia Status: Acute Assessment and Plan: acute and still fluctuating highest sodium able to be achieved to date is 119mmol/L does have a history of this in October 2021 this was secondary oxybutynin use and excess free water intake - resolved with fluid restriction and normal saline IVFs recent labs with normal sodium aside from 10/03/22 ER visit -- sodium was 129mmol/L admission sodium 115 but dropped to as low as 110mmol/L reports symptoms of feeling foggy and not being able to think clearly (which could be secondary to the drop in sodium) etiology not clear denies excessive free water intake no culprit medicines (SSRI, thiazide diuretics, PPIs, narcotics...etc) however, does have BPH and smoking history/ COPD by pCXR (both of which can predispose to low sodium levels) evaluation to date: urine electrolytes prerenal (but no improvement in sodium with normal saline IVFs) TSH and cortisol okay SPEP negative for paraproteinemia; UPEP not done(?) - will reorder urine osmolality 799, serum osmolality 248 3% saline given several times but sodium still remains low on fluid restriction - will increase to 1200cc/24hr added salt tabs + low dose lasix -- 2gram tid + lasix 20mg tid follow repeat sodium levels (2) Hematuria: Qualifiers: Hematuria type: unspecified type Qualified Code(s): R31.9 - Hematuria, unspecified Code(s): R31.9 - Hematuria, unspecified Status: Acute Assessment and Plan: resolved as noted by admission complaint and urinalysis holding anticoagulation on admission Urology following with recommendations noted -- etiology thought to be secondary to BPH follow H/H (3) Acute UTI: Code(s): N39.0 - Urinary tract infection, site not specified Status: Acute Assessment and Plan: culture results for ER visit on 10/03/22 noted repeat urine culture reviewed (negative) off antibiotics (4) Afib: Qualifiers: Atrial fibrillation type: paroxysmal Qualified Code(s): I48.0 - Paroxysmal atrial fibrillation Code(s): I48.91 - Unspecified atrial fibrillation Status: Chronic Assessment and Plan: continue rate control strategy anticoagulation resumed Will continue to follow. Subjective Date/time seen: 10/16/22 12:46 Interval history: Follow-up for acute hyponatremia. Although sodium remains better than on admission, he has been quite resistant to all interventions to date to normalize serum sodium; despite low sodium at this time, he remains asymptomatic; no other issues/events overnight or earlier this morning. Exam Narrative: General: WD/WN male in NAD Heart: tachycardic, normal S1 and S2; no rub Lungs: few scattered wheezes and decreased at bases Abdomen: soft, nontender, nondistended, positive bowel sounds Extremities: no cyanosis or clubbing; trace edema Skin: warm and dry Objective Data Vital Signs Vital Signs: Vital Signs Temp Pulse Resp BP Pulse Ox O2 Del Method FiO2 10/16/22 12:09 97.8 F 98 18 133/76 96 10/16/22 10:00 108 H 10/16/22 08:00 Room Air 10/16/22 08:00 133 H 10/16/22 09:10 119 H 10/16/22 08:56 98.0 F 119 H 22 H 121/69 95 10/16/22 08:52 107 H 18 10/16/22 08:48 95 Room Air 10/16/22 08:40 100 20 10/16/22 06:00 121 H 10/16/22 04:00 97.5 F L 106 H 18 134/82 93 10/16/22 04:00 108 H 20 100 Room Air 21 10/16/22 04:00 115 H 10/16/22 02:00 108 H 10/16/22 00:00 114 H 20 100 Room Air 21 10/16/22 00:00 87 10/16/22 01:56 114 H 20 10/16/22 01:42 111 H 20 10/15/22 22:00 96 10/15/22 20:00 139 H 10/15/22 20:24 99 20 10/15/22 23:48 97.6 F 83 18 92/41 L 100 10/15/22 20:00 115 H
[2022-10-16] MEDS: MAGNESIUM SULF 4 GM/WATER100ML 4 GM/100 ML BAG IVPB (12:56)
[2022-10-16 14:58] LABS: Sodium 118 mmol/L (137-145)
[2022-10-16 19:00] LABS: Sodium 116 mmol/L (137-145)
[2022-10-16] MEDS: APIXABAN 5 MG TABLET PO (20:13)
[2022-10-16] MEDS: SODIUM CHLORIDE 3% 240 ML 80 ML IV CONT (20:13)
[2022-10-17] VITALS (25 sets, daily range): BP systolic 91–140; BP diastolic 54–87; PULSE 78–111; RESP 16–20; TEMP 35.7–36.6; O2SAT 92–100
[2022-10-17 01:27] LABS: Sodium 116 mmol/L (137-145)
[2022-10-17] MEDS: ALBUTEROL SULFATE NEB 2.5 MG/3 ML INH INHALATION ×4 (01:32→20:17)
[2022-10-17] MEDS: IPRATROPIUM BR 0.02% INH SOLN 0.5 MG/2.5 ML VIAL INHALATION ×4 (01:32→20:16)
[2022-10-17 05:42] LABS: Basophils Percent Auto 0.2 % (0.2-1.2); Eosinophils Percent Auto 0.1 % (0-4.4); Hemoglobin 13.5 g/dL (14.0-18.0); Immature Granulocyte Absolute 0.13 K/mm3 (0.00-0.031); Lymphocytes Absolute Auto 0.78 K/mm3 (0.9-3.2); Mean Corpuscular HGB Conc 34.6 g/dl (32-36); Mean Corpuscular Hemoglobin 31.5 pg (26-34); Mean Corpuscular Volume 91.1 fl (80-100); Mean Platelet Volume 8.5 fl (7.4-10.4); Monocytes Absolute Auto 0.7 K/mm3 (0.1-0.6); Monocytes Percent Auto 5.6 % (2.6-8.5); Neutrophils Absolute Auto 11.4 K/mm3 (1.3-6.7); Neutrophils Percent Auto 87.1 % (45.5-73.1); Platelet Count Result 147 k/mm3 (150-375); Red Blood Count 4.28 M/mm3 (4.6-6.20); Red Cell Distribution Width 13.7 % (11.5-14.5); White Blood Count 13.1 K/mm3 (4.5-10.0)
[2022-10-17 05:58] LABS: Alanine Aminotransferase 40 U/L (6-50); Albumin Level 3.1 g/dL (3.5-5.1); Alkaline Phosphatase 57 U/L (38-126); Anion Gap 5 mmol/L (8-16); Aspartate Amino Transferase 44 U/L (17-59); Bilirubin,Total 1.5 mg/dL (0.2-1.3); Blood Urea Nitrogen 18 mg/dL (9-20); Calcium 8.2 mg/dL (8.4-10.2); Carbon Dioxide 29 mmol/L (22-30); Chloride 83 mmol/L (98-107); Estimated CRCL calculation 98 ml/min; Estimated Glomerular Filt Rate > 60; Glucose 114 mg/dL (65-110); Potassium 3.9 mmol/L (3.4-5.0); Sodium 117 mmol/L (137-145)
[2022-10-17] MEDS: SODIUM CHLORIDE 500 MG TABLET 2000 MG PO ×3 (09:15→17:37)
[2022-10-17] MEDS: TAMSULOSIN HCL 0.4 MG CAPSULE BY MOUTH (09:15)
[2022-10-17] MEDS: PANTOPRAZOLE 40 MG TABLET PO (09:15)
[2022-10-17] MEDS: SIMVASTATIN 20 MG TABLET PO (09:15)
[2022-10-17] MEDS: SODIUM CHLORIDE 3% 270 ML 90 ML IV CONT (09:15)
[2022-10-17] MEDS: FINASTERIDE 5 MG TABLET PO (09:15)
[2022-10-17] MEDS: FUROSEMIDE 20 MG TABLET PO ×3 (09:15→17:38)
[2022-10-17] MEDS: atenoloL 25 MG TABLET 75 MG BY MOUTH (09:16)
[2022-10-17] MEDS: amLODIPine BESYLATE 5 MG TABLET BY MOUTH (09:16)
[2022-10-17] MEDS: APIXABAN 5 MG TABLET PO ×2 (09:16→21:38)
[2022-10-17] MEDS: CHOLECALCIFEROL 1,000 UNITS TABLET 2000 UNITS PO (09:16)
--- NOTE | 2022-10-17 11:45 | P.PNIM_ITS ---
Progress Note: A&P Assessment and Plan (1) Hyponatremia: Code(s): E87.1 - Hypo-osmolality and hyponatremia Status: Acute Assessment and Plan: * acute and still fluctuating * highest sodium able to be achieved to date is 119mmol/L * does have a history of this in October 2021 * this was secondary oxybutynin use and excess free water intake - resolved with fluid restriction and normal saline IVFs * recent labs with normal sodium aside from 10/03/22 ER visit -- sodium was 129mmol/L * admission sodium 115 but dropped to as low as 110mmol/L * reports symptoms of feeling foggy and not being able to think clearly (which could be secondary to the drop in sodium) * etiology not clear * denies excessive free water intake * no culprit medicines (SSRI, thiazide diuretics, PPIs, narcotics...etc) * however, does have BPH and smoking history/ COPD by pCXR (both of which can predispose to low sodium levels) * evaluation to date: * urine electrolytes prerenal (but no improvement in sodium with normal saline IVFs) * TSH and cortisol okay * SPEP negative for paraproteinemia; UPEP not done(?) - will reorder * urine osmolality 799, serum osmolality 248 * 3% saline given several times but sodium still remains low * on fluid restriction - will increase to 1200cc/24hr * added salt tabs + low dose lasix -- 2gram tid + lasix 20mg tid * follow repeat sodium levels * Nephrology on board. Appreciate their input (2) Afib: Qualifiers: Atrial fibrillation type: paroxysmal Qualified Code(s): I48.0 - Paroxysmal atrial fibrillation Code(s): I48.91 - Unspecified atrial fibrillation Status: Chronic Assessment and Plan: * continue rate control strategy. Increase atenolol to 100 mg daily * anticoagulation resumed Will continue to follow. (3) Acute UTI: Code(s): N39.0 - Urinary tract infection, site not specified Status: Acute Assessment and Plan: * culture results for ER visit on 10/03/22 noted * repeat urine culture reviewed (negative) * off antibiotics (4) Hematuria: Qualifiers: Hematuria type: unspecified type Qualified Code(s): R31.9 - Hematuria, unspecified Code(s): R31.9 - Hematuria, unspecified Status: Acute Assessment and Plan: * resolved * as noted by admission complaint and urinalysis * holding anticoagulation on admission * Urology following with recommendations noted -- etiology thought to be secondary to BPH * follow H/H (5) HLD (hyperlipidemia): Qualifiers: Hyperlipidemia type: unspecified Qualified Code(s): E78.5 - Hyperlipidemia, unspecified Code(s): E78.5 - Hyperlipidemia, unspecified Status: Acute (6) COPD (chronic obstructive pulmonary disease): Qualifiers: COPD type: unspecified COPD Qualified Code(s): J44.9 - Chronic obstructive pulmonary disease, unspecified Code(s): J44.9 - Chronic obstructive pulmonary disease, unspecified Status: Acute Assessment and Plan: Continue nebulization Time Spent With Patient Time with patient: 25 - 35 minutes Subjective Date/time seen: 10/17/22 11:45 Interval history: Asymptomatic Review of Systems Review of Systems: All systems reviewed & are unremarkable except as noted in HPI and below Exam Narrative: General: WD/WN male in NAD Heart: tachycardic, normal S1 and S2; no rub Lungs: few scattered wheezes and decreased at bases
--- NOTE | 2022-10-17 11:45 | PM.IMPN ---
Progress Note: A&P Assessment and Plan (1) Hyponatremia: Code(s): E87.1 - Hypo-osmolality and hyponatremia Status: Acute Assessment and Plan: acute and still fluctuating highest sodium able to be achieved to date is 119mmol/L does have a history of this in October 2021 this was secondary oxybutynin use and excess free water intake - resolved with fluid restriction and normal saline IVFs recent labs with normal sodium aside from 10/03/22 ER visit -- sodium was 129mmol/L admission sodium 115 but dropped to as low as 110mmol/L reports symptoms of feeling foggy and not being able to think clearly (which could be secondary to the drop in sodium) etiology not clear denies excessive free water intake no culprit medicines (SSRI, thiazide diuretics, PPIs, narcotics...etc) however, does have BPH and smoking history/ COPD by pCXR (both of which can predispose to low sodium levels) evaluation to date: urine electrolytes prerenal (but no improvement in sodium with normal saline IVFs) TSH and cortisol okay SPEP negative for paraproteinemia; UPEP not done(?) - will reorder urine osmolality 799, serum osmolality 248 3% saline given several times but sodium still remains low on fluid restriction - will increase to 1200cc/24hr added salt tabs + low dose lasix -- 2gram tid + lasix 20mg tid follow repeat sodium levels Nephrology on board. Appreciate their input (2) Afib: Qualifiers: Atrial fibrillation type: paroxysmal Qualified Code(s): I48.0 - Paroxysmal atrial fibrillation Code(s): I48.91 - Unspecified atrial fibrillation Status: Chronic Assessment and Plan: continue rate control strategy. Increase atenolol to 100 mg daily anticoagulation resumed Will continue to follow. (3) Acute UTI: Code(s): N39.0 - Urinary tract infection, site not specified Status: Acute Assessment and Plan: culture results for ER visit on 10/03/22 noted repeat urine culture reviewed (negative) off antibiotics (4) Hematuria: Qualifiers: Hematuria type: unspecified type Qualified Code(s): R31.9 - Hematuria, unspecified Code(s): R31.9 - Hematuria, unspecified Status: Acute Assessment and Plan: resolved as noted by admission complaint and urinalysis holding anticoagulation on admission Urology following with recommendations noted -- etiology thought to be secondary to BPH follow H/H (5) HLD (hyperlipidemia): Qualifiers: Hyperlipidemia type: unspecified Qualified Code(s): E78.5 - Hyperlipidemia, unspecified Code(s): E78.5 - Hyperlipidemia, unspecified Status: Acute (6) COPD (chronic obstructive pulmonary disease): Qualifiers: COPD type: unspecified COPD Qualified Code(s): J44.9 - Chronic obstructive pulmonary disease, unspecified Code(s): J44.9 - Chronic obstructive pulmonary disease, unspecified Status: Acute Assessment and Plan: Continue nebulization Time Spent With Patient Time with patient: 25 - 35 minutes Subjective Date/time seen: 10/17/22 11:45 Interval history: Asymptomatic Review of Systems Review of Systems: All systems reviewed & are unremarkable except as noted in HPI and below Exam Narrative: General: WD/WN male in NAD Heart: tachycardic, normal S1 and S2; no rub Lungs: few scattered wheezes and decreased at bases Abdomen: soft, nontender, nondistended, positive bowel sounds Extremities: no cyanosis or clubbing; trace edema Skin: warm and dry Objective Data Vital Signs Vital Signs: Vital Signs - 24 hr 10/16/22 12:09 10/16/22 14:10 10/16/22 12:00 Temperature 97.8 F Pulse Rate 98 91 103 H Respiratory Rate 18 18 Blood Pressure 133/76 Pulse Oximetry 96 Oxygen Delivery 10/16/22 14:00 10/16/22 12:00 10/16/22 16:41 Temperature 97.1 F L Pulse Rate 98 94 Respiratory Rate 14 Blood Pressu
--- NOTE | 2022-10-17 13:17 | PCPTNOTE ---
Patient getting a breathing treatment, will see the patient later in the afternoon.
[2022-10-17 14:08] LABS: Chloride Rand Ur 110 mmol/L (32-290); Chloride/Creatinine Rand Ur 98 (23-275); Creatinine Random Urine 112 mg/dL (20-320)
--- NOTE | 2022-10-17 14:56 | P.PNNP_ITS ---
Progress Note: A&P Assessment and Plan (1) Hyponatremia: Code(s): E87.1 - Hypo-osmolality and hyponatremia Status: Acute Assessment and Plan: * acute and still fluctuating * highest sodium able to be achieved to date is 119mmol/L * currently it is at 117 * does have a history of this in October 2021 * this was secondary oxybutynin use and excess free water intake - resolved with fluid restriction and normal saline IVFs * he did have some symptoms earlier but none now. * etiology not clear * denies excessive free water intake * no culprit medicines (SSRI, thiazide diuretics, PPIs, narcotics...etc) * however, does have BPH and smoking history/ COPD by pCXR (both of which can predispose to low sodium levels) * evaluation to date: * urine electrolytes prerenal (but no improvement in sodium with normal saline IVFs) * TSH and cortisol okay * SPEP negative for paraproteinemia; UPEP not done(?) - Pending * urine osmolality 799, serum osmolality 248 * treatment includes: * Fluid restriction. He is [id number] now. Will enhance this to 800. * Sodium chloride tablets and Lasix. * Intermittent hypertonic saline * because it is so difficult to control will add demeclocycline. * added salt tabs + low dose lasix -- 2gram tid + lasix 20mg tid * follow repeat sodium levels (2) Hematuria: Qualifiers: Hematuria type: unspecified type Qualified Code(s): R31.9 - Hematuria, unspecified Code(s): R31.9 - Hematuria, unspecified Status: Acute Assessment and Plan: * resolved * as noted by admission complaint and urinalysis * holding anticoagulation on admission * Urology following with recommendations noted -- etiology thought to be secondary to BPH * follow H/H (3) Acute UTI: Code(s): N39.0 - Urinary tract infection, site not specified Status: Acute Assessment and Plan: * culture results for ER visit on 10/03/22 noted * repeat urine culture reviewed (negative) * off antibiotics (4) Afib: Qualifiers: Atrial fibrillation type: paroxysmal Qualified Code(s): I48.0 - Paroxysmal atrial fibrillation Code(s): I48.91 - Unspecified atrial fibrillation Status: Chronic Assessment and Plan: * continue rate control strategy * anticoagulation resumed Subjective Date/time seen: 10/17/22 14:56 Interval history: patient is in good spirits is in the room. We discussed the case. Exam Narrative: General: WD/WN male in NAD Heart: tachycardic, normal S1 and S2; no rub or gallop Lungs: few scattered wheezes and decreased at bases Abdomen: soft, nontender, nondistended, positive bowel sounds Extremities: no cyanosis or clubbing; trace edema Skin: No rash Objective Data Vital Signs Vital Signs: Vital Signs - 24 hr 10/16/22 16:41 10/16/22 16:00 10/16/22 18:00 Temperature 97.1 F L Pulse Rate 94 103 H 93 Respiratory Rate 14 Blood Pressure 108/66 Pulse Oximetry 95 Oxygen Delivery 10/16/22 16:00 10/16/22 20:19 10/16/22 20:19 Temperature Pulse Rate 104 H Respiratory Rate 18 Blood Pressure Pulse Oximetry 95 Oxygen Delivery Room Air Room Air 10/16/22 20:00 10/16/22 20:29 10/17/22 00:00
--- NOTE | 2022-10-17 14:56 | PM.PNNEP ---
Progress Note: A&P Assessment and Plan (1) Hyponatremia: Code(s): E87.1 - Hypo-osmolality and hyponatremia Status: Acute Assessment and Plan: acute and still fluctuating highest sodium able to be achieved to date is 119mmol/L currently it is at 117 does have a history of this in October 2021 this was secondary oxybutynin use and excess free water intake - resolved with fluid restriction and normal saline IVFs he did have some symptoms earlier but none now. etiology not clear denies excessive free water intake no culprit medicines (SSRI, thiazide diuretics, PPIs, narcotics...etc) however, does have BPH and smoking history/ COPD by pCXR (both of which can predispose to low sodium levels) evaluation to date: urine electrolytes prerenal (but no improvement in sodium with normal saline IVFs) TSH and cortisol okay SPEP negative for paraproteinemia; UPEP not done(?) - Pending urine osmolality 799, serum osmolality 248 treatment includes: Fluid restriction. He is [id number] now. Will enhance this to 800. Sodium chloride tablets and Lasix. Intermittent hypertonic saline because it is so difficult to control will add demeclocycline. added salt tabs + low dose lasix -- 2gram tid + lasix 20mg tid follow repeat sodium levels (2) Hematuria: Qualifiers: Hematuria type: unspecified type Qualified Code(s): R31.9 - Hematuria, unspecified Code(s): R31.9 - Hematuria, unspecified Status: Acute Assessment and Plan: resolved as noted by admission complaint and urinalysis holding anticoagulation on admission Urology following with recommendations noted -- etiology thought to be secondary to BPH follow H/H (3) Acute UTI: Code(s): N39.0 - Urinary tract infection, site not specified Status: Acute Assessment and Plan: culture results for ER visit on 10/03/22 noted repeat urine culture reviewed (negative) off antibiotics (4) Afib: Qualifiers: Atrial fibrillation type: paroxysmal Qualified Code(s): I48.0 - Paroxysmal atrial fibrillation Code(s): I48.91 - Unspecified atrial fibrillation Status: Chronic Assessment and Plan: continue rate control strategy anticoagulation resumed Subjective Date/time seen: 10/17/22 14:56 Interval history: patient is in good spirits is in the room. We discussed the case. Exam Narrative: General: WD/WN male in NAD Heart: tachycardic, normal S1 and S2; no rub or gallop Lungs: few scattered wheezes and decreased at bases Abdomen: soft, nontender, nondistended, positive bowel sounds Extremities: no cyanosis or clubbing; trace edema Skin: No rash Objective Data Vital Signs Vital Signs: Vital Signs - 24 hr 10/16/22 16:41 10/16/22 16:00 10/16/22 18:00 Temperature 97.1 F L Pulse Rate 94 103 H 93 Respiratory Rate 14 Blood Pressure 108/66 Pulse Oximetry 95 Oxygen Delivery 10/16/22 16:00 10/16/22 20:19 10/16/22 20:19 Temperature Pulse Rate 104 H Respiratory Rate 18 Blood Pressure Pulse Oximetry 95 Oxygen Delivery Room Air Room Air 10/16/22 20:00 10/16/22 20:29 10/17/22 00:00 Temperature 97.5 F L 97.8 F Pulse Rate 89 110 H 78 Respiratory Rate 20 18 20 Blood Pressure 115/72 110/76 Pulse Oximetry 96 94 Oxygen Delivery 10/17/22 01:32 10/17/22 00:00 10/16/22 20:00 Temperature Pulse Rate 80 91 Respiratory Rate 18 Blood Pressure Pulse Oximetry Oxygen Delivery Room Air 10/16/22 22:00 10/17/22 00:00 10/17/22 01:55 Temperature Pulse Rate 90 81 93 Respiratory Rate 16 Blood Pressure Pulse Oximetry Oxygen Delivery 10/17/22 02:00 10/17/22 04:00 10/17/22 04:00 Temperature Pulse Rate 108 H 85 Respiratory Rate Blood Pressure Pulse Oximetry Oxygen Delivery Room Air 10/17/22 04:00 10/17/22 06:00 10/17/22 07:15 Tem
[2022-10-17 15:13] LABS: Sodium 122 mmol/L (137-145)
[2022-10-17] MEDS: DEMECLOCYCLINE HCL 150 MG TABLET PO ×2 (17:37→21:38)
[2022-10-17 21:23] LABS: Sodium 125 mmol/L (137-145)
[2022-10-18] VITALS (25 sets, daily range): BP systolic 108–131; BP diastolic 60–84; PULSE 87–148; RESP 18–20; TEMP 35.6–37.1; O2SAT 95–99
[2022-10-18] MEDS: ALBUTEROL SULFATE NEB 2.5 MG/3 ML INH INHALATION ×4 (01:33→20:23)
[2022-10-18] MEDS: IPRATROPIUM BR 0.02% INH SOLN 0.5 MG/2.5 ML VIAL INHALATION ×4 (01:33→20:23)
[2022-10-18 05:14] LABS: Basophils Percent Auto 0.2 % (0.2-1.2); Eosinophils Percent Auto 0.3 % (0-4.4); Hematocrit 39.5 % (42.0-52.0); Hemoglobin 13.5 g/dL (14.0-18.0); Immature Granulocyte Absolute 0.14 K/mm3 (0.00-0.031); Immature Granulocyte Percent A 1.3 % (0-0.5); Lymphocytes Absolute Auto 1.05 K/mm3 (0.9-3.2); Lymphocytes Percent Auto 9.7 % (18.3-44.2); Mean Corpuscular HGB Conc 34.2 g/dl (32-36); Mean Corpuscular Hemoglobin 31.7 pg (26-34); Mean Corpuscular Volume 92.7 fl (80-100); Mean Platelet Volume 8.3 fl (7.4-10.4); Monocytes Absolute Auto 0.8 K/mm3 (0.1-0.6); Monocytes Percent Auto 7.7 % (2.6-8.5); Neutrophils Absolute Auto 8.7 K/mm3 (1.3-6.7); Neutrophils Percent Auto 80.8 % (45.5-73.1); Platelet Count Result 141 k/mm3 (150-375); Red Blood Count 4.26 M/mm3 (4.6-6.20); Red Cell Distribution Width 13.8 % (11.5-14.5); White Blood Count 10.8 K/mm3 (4.5-10.0)
[2022-10-18 05:24] LABS: Anion Gap 4 mmol/L (8-16); Blood Urea Nitrogen 20 mg/dL (9-20); Carbon Dioxide 31 mmol/L (22-30); Chloride 87 mmol/L (98-107); Cholesterol 105 mg/dL (0-200); Estimated CRCL calculation 85 ml/min; Estimated Glomerular Filt Rate > 60; Glucose 95 mg/dL (65-110); Potassium 3.3 mmol/L (3.4-5.0); Sodium 122 mmol/L (137-145); Triglycerides 46 mg/dL (<150)
[2022-10-18] MEDS: POTASSIUM CHLORIDE 20 MEQ ER TABLET 40 MEQ PO (06:54)
[2022-10-18] MEDS: PANTOPRAZOLE 40 MG TABLET PO (09:53)
[2022-10-18] MEDS: DEMECLOCYCLINE HCL 150 MG TABLET PO ×3 (09:53→21:03)
[2022-10-18] MEDS: TAMSULOSIN HCL 0.4 MG CAPSULE BY MOUTH (09:53)
[2022-10-18] MEDS: APIXABAN 5 MG TABLET PO ×2 (09:53→21:01)
[2022-10-18] MEDS: SODIUM CHLORIDE 500 MG TABLET 2000 MG PO (09:53)
[2022-10-18] MEDS: FINASTERIDE 5 MG TABLET PO (09:53)
[2022-10-18] MEDS: polyethylene glycoL 3350 17 GM POWD.PACK PO (09:53)
[2022-10-18] MEDS: FUROSEMIDE 20 MG TABLET PO ×3 (09:53→21:01)
[2022-10-18] MEDS: CHOLECALCIFEROL 1,000 UNITS TABLET 2000 UNITS PO (09:53)
[2022-10-18] MEDS: SIMVASTATIN 20 MG TABLET PO (09:53)
[2022-10-18] MEDS: METOPROLOL TARTRATE 50 MG TAB PO ×2 (09:55→21:03)
[2022-10-18 10:09] LABS: Magnesium 1.9 mg/dL (1.6-2.3)
--- NOTE | 2022-10-18 12:13 | P.PNIM_ITS ---
Progress Note: A&P Assessment and Plan (1) Hyponatremia: Code(s): E87.1 - Hypo-osmolality and hyponatremia Status: Acute Assessment and Plan: * Improving * does have a history of this in October 2021 * this was secondary oxybutynin use and excess free water intake - resolved with fluid restriction and normal saline IVFs * recent labs with normal sodium aside from 10/03/22 ER visit -- sodium was 129mmol/L * admission sodium 115 but dropped to as low as 110mmol/L * etiology not clear * denies excessive free water intake * no culprit medicines (SSRI, thiazide diuretics, PPIs, narcotics...etc) * however, does have BPH and smoking history/ COPD by pCXR (both of which can predispose to low sodium levels) * evaluation to date: * urine electrolytes prerenal (but no improvement in sodium with normal saline IVFs) * TSH and cortisol okay * SPEP negative for paraproteinemia; UPEP not done(?) - will reorder * urine osmolality 799, serum osmolality 248 * 3% saline given several times but sodium still remains low * on fluid restriction * added salt tabs + low dose lasix -- 2gram tid + lasix 20mg tid * follow repeat sodium levels * Nephrology on board. Appreciate their input (2) Afib: Qualifiers: Atrial fibrillation type: paroxysmal Qualified Code(s): I48.0 - Paro xysmal atrial fibrillation Code(s): I48.91 - Unspecified atrial fibrillation Status: Chronic Assessment and Plan: * continue rate control strategy. Will change atenolol to metoprolol b.i.d. for 24 hour coverage * anticoagulation resumed (3) Acute UTI: Code(s): N39.0 - Urinary tract infection, site not specified Status: Acute Assessment and Plan: * urine culture negative * off antibiotics (4) Hematuria: Qualifiers: Hematuria type: unspecified type Qualified Code(s): R31.9 - Hematuria, unspecified Code(s): R31.9 - Hematuria, unspecified Status: Acute Assessment and Plan: * resolved (5) HLD (hyperlipidemia): Qualifiers: Hyperlipidemia type: unspecified Qualified Code(s): E78.5 - Hyperlipidemia, unspecified Code(s): E78.5 - Hyperlipidemia, unspecified Status: Acute (6) COPD (chronic obstructive pulmonary disease): Qualifiers: COPD type: unspecified COPD Qualified Code(s): J44.9 - Chronic obstructive pulmonary disease, unspecified Code(s): J44.9 - Chronic obstructive pulmonary disease, unspecified Status: Acute Assessment and Plan: Continue nebulization Time Spent With Patient Time with patient: 25 - 35 minutes Subjective Date/time seen: 10/18/22 12:13 Interval history: Patient asymptomatic Review of Systems Review of Systems: All systems reviewed & are unremarkable except as noted in HPI and below Exam Narrative: General: WD/WN male in NAD Heart: tachycardic, normal S1 and S2; no rub or gallop Lungs: few scattered wheezes and decreased at bases Abdomen: soft, nontender, nondistended, positive bowel sounds Extremities: no cyanosis or clubbing; trace edema Skin: No rash Objective Data Vital Signs Vital Signs: Vital Signs - 24 hr 10/17/22 12:26 10/17/22 13:15 10/17/22 13:25 Temperature 96.3 F L Pulse Rate 95 93 95 Respiratory Rate 20 18 18 Blood Pressure 102/68
--- NOTE | 2022-10-18 12:13 | PM.IMPN ---
Progress Note: A&P Assessment and Plan (1) Hyponatremia: Code(s): E87.1 - Hypo-osmolality and hyponatremia Status: Acute Assessment and Plan: Improving does have a history of this in October 2021 this was secondary oxybutynin use and excess free water intake - resolved with fluid restriction and normal saline IVFs recent labs with normal sodium aside from 10/03/22 ER visit -- sodium was 129mmol/L admission sodium 115 but dropped to as low as 110mmol/L etiology not clear denies excessive free water intake no culprit medicines (SSRI, thiazide diuretics, PPIs, narcotics...etc) however, does have BPH and smoking history/ COPD by pCXR (both of which can predispose to low sodium levels) evaluation to date: urine electrolytes prerenal (but no improvement in sodium with normal saline IVFs) TSH and cortisol okay SPEP negative for paraproteinemia; UPEP not done(?) - will reorder urine osmolality 799, serum osmolality 248 3% saline given several times but sodium still remains low on fluid restriction added salt tabs + low dose lasix -- 2gram tid + lasix 20mg tid follow repeat sodium levels Nephrology on board. Appreciate their input (2) Afib: Qualifiers: Atrial fibrillation type: paroxysmal Qualified Code(s): I48.0 - Paroxysmal atrial fibrillation Code(s): I48.91 - Unspecified atrial fibrillation Status: Chronic Assessment and Plan: continue rate control strategy. Will change atenolol to metoprolol b.i.d. for 24 hour coverage anticoagulation resumed (3) Acute UTI: Code(s): N39.0 - Urinary tract infection, site not specified Status: Acute Assessment and Plan: urine culture negative off antibiotics (4) Hematuria: Qualifiers: Hematuria type: unspecified type Qualified Code(s): R31.9 - Hematuria, unspecified Code(s): R31.9 - Hematuria, unspecified Status: Acute Assessment and Plan: resolved (5) HLD (hyperlipidemia): Qualifiers: Hyperlipidemia type: unspecified Qualified Code(s): E78.5 - Hyperlipidemia, unspecified Code(s): E78.5 - Hyperlipidemia, unspecified Status: Acute (6) COPD (chronic obstructive pulmonary disease): Qualifiers: COPD type: unspecified COPD Qualified Code(s): J44.9 - Chronic obstructive pulmonary disease, unspecified Code(s): J44.9 - Chronic obstructive pulmonary disease, unspecified Status: Acute Assessment and Plan: Continue nebulization Time Spent With Patient Time with patient: 25 - 35 minutes Subjective Date/time seen: 10/18/22 12:13 Interval history: Patient asymptomatic Review of Systems Review of Systems: All systems reviewed & are unremarkable except as noted in HPI and below Exam Narrative: General: WD/WN male in NAD Heart: tachycardic, normal S1 and S2; no rub or gallop Lungs: few scattered wheezes and decreased at bases Abdomen: soft, nontender, nondistended, positive bowel sounds Extremities: no cyanosis or clubbing; trace edema Skin: No rash Objective Data Vital Signs Vital Signs: Vital Signs - 24 hr 10/17/22 12:26 10/17/22 13:15 10/17/22 13:25 Temperature 96.3 F L Pulse Rate 95 93 95 Respiratory Rate 20 18 18 Blood Pressure 102/68 Pulse Oximetry 95 Oxygen Delivery 10/17/22 14:00 10/17/22 16:00 10/17/22 16:00 Temperature Pulse Rate 102 H 95 Respiratory Rate Blood Pressure Pulse Oximetry Oxygen Delivery Room Air 10/17/22 16:45 10/17/22 18:00 10/17/22 20:19 Temperature 96.2 F L Pulse Rate 98 101 H Respiratory Rate 20 Blood Pressure 91/54 L Pulse Oximetry 97 96 Oxygen Delivery Room Air 10/17/22 20:19 10/17/22 20:00 10/17/22 23:49 Temperature 96.8 F L 96.9 F L Pulse Rate 101 H 104 H 92 Respiratory Rate 18 20 20 Blood Pressure 106/71 105/70 Pulse Oximetry 95 97 Oxygen Delivery 10/17/22
[2022-10-18] MEDS: SODIUM CHLORIDE 3% 270 ML 90 ML IV CONT (12:24)
[2022-10-18 12:25] LABS: Sodium 126 mmol/L (137-145)
--- NOTE | 2022-10-18 13:52 | P.PNNP_ITS ---
Progress Note: A&P Assessment and Plan (1) Hyponatremia: Code(s): E87.1 - Hypo-osmolality and hyponatremia Status: Acute Assessment and Plan: * acute and still fluctuating * this is been a difficult course but he the sodium was up to 125 * does have a history of this in October 2021 * this was secondary oxybutynin use and excess free water intake - resolved with fluid restriction and normal saline IVFs * he did have some symptoms earlier but none now. * etiology not clear * denies excessive free water intake * no culprit medicines (SSRI, thiazide diuretics, PPIs, narcotics...etc) * however, does have BPH and smoking history/ COPD by pCXR (both of which can predispose to low sodium levels) * evaluation to date: * urine electrolytes prerenal (but no improvement in sodium with normal saline IVFs) * TSH and cortisol okay * SPEP negative for paraproteinemia; UPEP not done(?) - Pending * urine osmolality 799, serum osmolality 248 * treatment includes: * Fluid restriction. He is at 800 cc per day. * Sodium chloride tablets and Lasix. * Intermittent hypertonic saline * demeclocycline. * sodium dropped a little bit again so will give 1 more round of hypertonic saline * follow repeat sodium levels (2) Hematuria: Qualifiers: Hematuria type: unspecified type Qualified Code(s): R31.9 - Hematuria, unspecified Code(s): R31.9 - Hematuria, unspecified Status: Acute Assessment and Plan: * resolved * as noted by admission complaint and urinalysis * holding anticoagulation on admission * Urology following with recommendations noted -- etiology thought to be secondary to BPH * hemoglobin 13.5 (3) Acute UTI: Code(s): N39.0 - Urinary tract infection, site not specified Status: Acute Assessment and Plan: * cultures negative (4) Afib: Qualifiers: Atrial fibrillation type: paroxysmal Qualified Code(s): I48.0 - Paroxysmal atrial fibrillation Code(s): I48.91 - Unspecified atrial fibrillation Status: Chronic Assessment and Plan: * continue rate control strategy * anticoagulation resumed Subjective Date/time seen: 10/18/22 13:52 Interval history: Marcos is feeling well today. No chest pain or shortness of breath Exam Narrative: General: WD/WN male in NAD Heart: tachycardic, normal S1 and S2; no rub or gallop Lungs: fairly clear Abdomen: soft, nontender, nondistended, positive bowel sounds Extremities: no cyanosis or clubbing; trace edema Skin: No rash Objective Data Vital Signs Vital Signs: Vital Signs - 24 hr 10/17/22 14:00 10/17/22 16:00 10/17/22 16:00 Temperature Pulse Rate 102 H 95 Respiratory Rate Blood Pressure Pulse Oximetry Oxygen Delivery Room Air 10/17/22 16:45 10/17/22 18:00 10/17/22 20:19 Temperature 96.2 F L Pulse Rate 98 101 H Respiratory Rate 20 Blood Pressure 91/54 L Pulse Oximetry 97 96 Oxygen Delivery Room Air 10/17/22 20:19 10/17/22 20:00 10/17/22 23:49 Temperature 96.8 F L 96.9 F L Pulse Rate 101 H 104 H 92 Respiratory Rate 18 20 20 Blood Pressure 106/71 105/70 Pulse Oximetry 95 97
--- NOTE | 2022-10-18 13:52 | PM.PNNEP ---
Progress Note: A&P Assessment and Plan (1) Hyponatremia: Code(s): E87.1 - Hypo-osmolality and hyponatremia Status: Acute Assessment and Plan: acute and still fluctuating this is been a difficult course but he the sodium was up to 125 does have a history of this in October 2021 this was secondary oxybutynin use and excess free water intake - resolved with fluid restriction and normal saline IVFs he did have some symptoms earlier but none now. etiology not clear denies excessive free water intake no culprit medicines (SSRI, thiazide diuretics, PPIs, narcotics...etc) however, does have BPH and smoking history/ COPD by pCXR (both of which can predispose to low sodium levels) evaluation to date: urine electrolytes prerenal (but no improvement in sodium with normal saline IVFs) TSH and cortisol okay SPEP negative for paraproteinemia; UPEP not done(?) - Pending urine osmolality 799, serum osmolality 248 treatment includes: Fluid restriction. He is at 800 cc per day. Sodium chloride tablets and Lasix. Intermittent hypertonic saline demeclocycline. sodium dropped a little bit again so will give 1 more round of hypertonic saline follow repeat sodium levels (2) Hematuria: Qualifiers: Hematuria type: unspecified type Qualified Code(s): R31.9 - Hematuria, unspecified Code(s): R31.9 - Hematuria, unspecified Status: Acute Assessment and Plan: resolved as noted by admission complaint and urinalysis holding anticoagulation on admission Urology following with recommendations noted -- etiology thought to be secondary to BPH hemoglobin 13.5 (3) Acute UTI: Code(s): N39.0 - Urinary tract infection, site not specified Status: Acute Assessment and Plan: cultures negative (4) Afib: Qualifiers: Atrial fibrillation type: paroxysmal Qualified Code(s): I48.0 - Paroxysmal atrial fibrillation Code(s): I48.91 - Unspecified atrial fibrillation Status: Chronic Assessment and Plan: continue rate control strategy anticoagulation resumed Subjective Date/time seen: 10/18/22 13:52 Interval history: Marcos is feeling well today. No chest pain or shortness of breath Exam Narrative: General: WD/WN male in NAD Heart: tachycardic, normal S1 and S2; no rub or gallop Lungs: fairly clear Abdomen: soft, nontender, nondistended, positive bowel sounds Extremities: no cyanosis or clubbing; trace edema Skin: No rash Objective Data Vital Signs Vital Signs: Vital Signs - 24 hr 10/17/22 14:00 10/17/22 16:00 10/17/22 16:00 Temperature Pulse Rate 102 H 95 Respiratory Rate Blood Pressure Pulse Oximetry Oxygen Delivery Room Air 10/17/22 16:45 10/17/22 18:00 10/17/22 20:19 Temperature 96.2 F L Pulse Rate 98 101 H Respiratory Rate 20 Blood Pressure 91/54 L Pulse Oximetry 97 96 Oxygen Delivery Room Air 10/17/22 20:19 10/17/22 20:00 10/17/22 23:49 Temperature 96.8 F L 96.9 F L Pulse Rate 101 H 104 H 92 Respiratory Rate 18 20 20 Blood Pressure 106/71 105/70 Pulse Oximetry 95 97 Oxygen Delivery 10/17/22 20:00 10/18/22 00:00 10/17/22 20:00 Temperature Pulse Rate 109 H Respiratory Rate Blood Pressure Pulse Oximetry Oxygen Delivery Room Air Room Air 10/17/22 22:00 10/18/22 00:00 10/18/22 01:34 Temperature Pulse Rate 97 95 105 H Respiratory Rate 18 Blood Pressure Pulse Oximetry Oxygen Delivery 10/17/22 20:33 10/18/22 02:00 10/18/22 04:00 Temperature 97.4 F L Pulse Rate 103 H 113 H 92 Respiratory Rate 18 Blood Pressure 108/79 Pulse Oximetry 96 Oxygen Delivery 10/18/22 04:00 10/18/22 04:00 10/18/22 01:48 Temperature Pulse Rate 87 107 H Respiratory Rate 18 Blood Pressure Pulse Oximetry Oxygen Delivery Room Air 10/18/22 06:00 10/18/22 08:28 08
[2022-10-18] MEDS: SODIUM CHLORIDE 1 GM TABLET 2 GM PO ×2 (13:56→21:02)
[2022-10-18 16:47] LABS: Sodium 127 mmol/L (137-145)
[2022-10-18 20:27] LABS: Sodium 126 mmol/L (137-145)
[2022-10-19] VITALS (25 sets, daily range): BP systolic 107–134; BP diastolic 65–75; PULSE 76–126; RESP 16–20; TEMP 36.1–36.8; O2SAT 93–97
[2022-10-19] MEDS: IPRATROPIUM BR 0.02% INH SOLN 0.5 MG/2.5 ML VIAL INHALATION ×4 (01:10→20:20)
[2022-10-19] MEDS: ALBUTEROL SULFATE NEB 2.5 MG/3 ML INH INHALATION ×4 (01:10→20:20)
[2022-10-19] MEDS: DEMECLOCYCLINE HCL 150 MG TABLET PO ×5 (02:24→20:54)
[2022-10-19 04:20] LABS: Potassium 3.3 mmol/L (3.4-5.0)
[2022-10-19 04:24] LABS: Albumin Level 3.1 g/dL (3.5-5.1); Anion Gap 3 mmol/L (8-16); Blood Urea Nitrogen 16 mg/dL (9-20); Calcium 8.2 mg/dL (8.4-10.2); Carbon Dioxide 34 mmol/L (22-30); Chloride 88 mmol/L (98-107); Estimated CRCL calculation 98 ml/min; Estimated Glomerular Filt Rate > 60; Glucose 95 mg/dL (65-110); Magnesium 1.6 mg/dL (1.6-2.3); Phosphorus 3.8 mg/dL (2.5-4.5); Sodium 125 mmol/L (137-145)
[2022-10-19] MEDS: PANTOPRAZOLE 40 MG TABLET PO (09:09)
[2022-10-19] MEDS: FINASTERIDE 5 MG TABLET PO (09:09)
[2022-10-19] MEDS: POTASSIUM CHLORIDE 20 MEQ ER TABLET 40 MEQ PO (09:09)
[2022-10-19] MEDS: CHOLECALCIFEROL 1,000 UNITS TABLET 2000 UNITS PO (09:09)
[2022-10-19] MEDS: TAMSULOSIN HCL 0.4 MG CAPSULE BY MOUTH (09:09)
[2022-10-19] MEDS: APIXABAN 5 MG TABLET PO ×2 (09:09→20:54)
[2022-10-19] MEDS: SODIUM CHLORIDE 1 GM TABLET 2 GM PO ×3 (09:09→18:01)
[2022-10-19] MEDS: METOPROLOL TARTRATE 50 MG TAB PO ×2 (09:09→20:54)
[2022-10-19] MEDS: SIMVASTATIN 20 MG TABLET PO (09:09)
[2022-10-19] MEDS: FUROSEMIDE 20 MG TABLET PO ×3 (09:09→18:01)
[2022-10-19] MEDS: polyethylene glycoL 3350 17 GM POWD.PACK PO (09:09)
[2022-10-19] MEDS: CYANOCOBALAMIN 250 MCG TABLET BY MOUTH (09:18)
[2022-10-19 10:22] LABS: Sodium 122 mmol/L (137-145)
--- NOTE | 2022-10-19 10:45 | P.PNNP_ITS ---
Progress Note: A&P Assessment and Plan (1) Hyponatremia: Code(s): E87.1 - Hypo-osmolality and hyponatremia Status: Acute Assessment and Plan: * acute and still fluctuating * this is been a difficult course but he the sodium was up to 125 * does have a history of this in October 2021 * this was secondary oxybutynin use and excess free water intake - resolved with fluid restriction and normal saline IVFs * he did have some symptoms earlier but none now * etiology not clear * denies excessive free water intake * no culprit medicines (SSRI, thiazide diuretics, PPIs, narcotics...etc) * however, does have BPH and smoking history/ COPD by pCXR (both of which can predispose to low sodium levels) * evaluation to date: * urine electrolytes prerenal (but no improvement in sodium with normal saline IVFs) * TSH and cortisol okay * SPEP negative for paraproteinemia; UPEP pending * urine osmolality 799, serum osmolality 248 * treatment includes: * fluid restriction - 800 cc per day. * sodium chloride tablets and Lasix. * intermittent hypertonic saline * demeclocycline. * will give another round of hypertonic saline * follow repeat sodium levels (2) Hematuria: Qualifiers: Hematuria type: unspecified type Qualified Code(s): R31.9 - Hematuria, unspecified Code(s): R31.9 - Hematuria, unspecified Status: Acute Assessment and Plan: * resolved * as noted by admission complaint and urinalysis * holding anticoagulation on admission * Urology following with recommendations noted -- etiology thought to be secondary to BPH (3) Afib: Qualifiers: Atrial fibrillation type: paroxysmal Qualified Code(s): I48.0 - Paroxysmal atrial fibrillation Code(s): I48.91 - Unspecified atrial fibrillation Status: Chronic Assessment and Plan: * continue rate control strategy * anticoagulation resumed Will continue to follow. Subjective Date/time seen: 10/19/22 10:45 Interval history: Follow-up for acute hyponatremia. Sodium doing somewhat better -- did get as high as 127 but has drifted back down to 122 by most recent blood draw; remains asymptomatic and in good spirits in general; no apparent distress; no issues/events overnight or earlier this AM. Exam Narrative: General: WD/WN male in NAD Heart: tachycardic, normal S1 and S2; no rub Lungs: clear to ausculation Abdomen: soft, nontender, nondistended, positive bowel sounds Extremities: no cyanosis or clubbing; trace edema Skin: no nodules Objective Data Vital Signs Vital Signs: Vital Signs Temp Pulse Resp BP Pulse Ox O2 Del Method 10/19/22 10:43 98.1 F 112 H 20 114/69 94 10/19/22 08:00 Room Air 10/19/22 09:09 126 H 10/19/22 08:21 94 Room Air 10/19/22 08:15 101 H 18 10/19/22 07:58 97.4 F L 115 H 20 128/75 95 10/19/22 06:00 105 H 10/19/22 04:00 96 10/19/22 03:57 Room Air 10/19/22 03:57 97.6 F 118 H 20 134/74 95 10/19/22 02:00 98 10/19/22 00:00 102 H 10/18/22 22:00 109 H 10/18/22 20:00 110 H 10/19/22 00:00 Room Air 10/18/22 20:00 Room Air 10/19/22 01:08 100 18 10/18/22 20:34 105 H 18
--- NOTE | 2022-10-19 10:45 | PM.PNNEP ---
Progress Note: A&P Assessment and Plan (1) Hyponatremia: Code(s): E87.1 - Hypo-osmolality and hyponatremia Status: Acute Assessment and Plan: acute and still fluctuating this is been a difficult course but he the sodium was up to 125 does have a history of this in October 2021 this was secondary oxybutynin use and excess free water intake - resolved with fluid restriction and normal saline IVFs he did have some symptoms earlier but none now etiology not clear denies excessive free water intake no culprit medicines (SSRI, thiazide diuretics, PPIs, narcotics...etc) however, does have BPH and smoking history/ COPD by pCXR (both of which can predispose to low sodium levels) evaluation to date: urine electrolytes prerenal (but no improvement in sodium with normal saline IVFs) TSH and cortisol okay SPEP negative for paraproteinemia; UPEP pending urine osmolality 799, serum osmolality 248 treatment includes: fluid restriction - 800 cc per day. sodium chloride tablets and Lasix. intermittent hypertonic saline demeclocycline. will give another round of hypertonic saline follow repeat sodium levels (2) Hematuria: Qualifiers: Hematuria type: unspecified type Qualified Code(s): R31.9 - Hematuria, unspecified Code(s): R31.9 - Hematuria, unspecified Status: Acute Assessment and Plan: resolved as noted by admission complaint and urinalysis holding anticoagulation on admission Urology following with recommendations noted -- etiology thought to be secondary to BPH (3) Afib: Qualifiers: Atrial fibrillation type: paroxysmal Qualified Code(s): I48.0 - Paroxysmal atrial fibrillation Code(s): I48.91 - Unspecified atrial fibrillation Status: Chronic Assessment and Plan: continue rate control strategy anticoagulation resumed Will continue to follow. Subjective Date/time seen: 10/19/22 10:45 Interval history: Follow-up for acute hyponatremia. Sodium doing somewhat better -- did get as high as 127 but has drifted back down to 122 by most recent blood draw; remains asymptomatic and in good spirits in general; no apparent distress; no issues/events overnight or earlier this AM. Exam Narrative: General: WD/WN male in NAD Heart: tachycardic, normal S1 and S2; no rub Lungs: clear to ausculation Abdomen: soft, nontender, nondistended, positive bowel sounds Extremities: no cyanosis or clubbing; trace edema Skin: no nodules Objective Data Vital Signs Vital Signs: Vital Signs Temp Pulse Resp BP Pulse Ox O2 Del Method 10/19/22 10:43 98.1 F 112 H 20 114/69 94 10/19/22 08:00 Room Air 10/19/22 09:09 126 H 10/19/22 08:21 94 Room Air 10/19/22 08:15 101 H 18 10/19/22 07:58 97.4 F L 115 H 20 128/75 95 10/19/22 06:00 105 H 10/19/22 04:00 96 10/19/22 03:57 Room Air 10/19/22 03:57 97.6 F 118 H 20 134/74 95 10/19/22 02:00 98 10/19/22 00:00 102 H 10/18/22 22:00 109 H 10/18/22 20:00 110 H 10/19/22 00:00 Room Air 10/18/22 20:00 Room Air 10/19/22 01:08 100 18 10/18/22 20:34 105 H 18 10/19/22 00:00 98.2 F 102 H 16 123/72 96 10/18/22 21:03 148 H 10/18/22 20:24 99 18 10/18/22 20:00 98.7 F 101 H 20 131/84 99 10/18/22 18:00 122 H 10/18/22 16:00 Room Air 10/18/22 16:00 107 H 10/18/22 16:35 97.3 F L 109 H 18 109/60 99 10/18/22 13:50 100 18 10/18/22 14:00 100 10/18/22 13:31 101 H 18 10/18/22 12:27 96.3 F L 116 H 20 120/79 97 Intake/Output Intake/Output: Intake & Output 10/16/22 10/17/22 10/18/22 10/19/22 23:59 23:59 23:59 23:59 Intake Total 1610 1080 890 400 Output Total 1275 1400 5400 3100 Balance 767 -213 -2765 -5576 Meds/Results Medications: Active Medications Generic Name Dose Route
[2022-10-19] MEDS: LIDOCAINE HCL 1% PF INJ 5 ML VIAL INFILTRATE (10:55)
--- NOTE | 2022-10-19 11:03 | P.PNIM_ITS ---
Progress Note: A&P Assessment and Plan (1) Hyponatremia: Code(s): E87.1 - Hypo-osmolality and hyponatremia Status: Acute Assessment and Plan: * Improving * does have a history of this in October 2021 * this was secondary oxybutynin use and excess free water intake - resolved with fluid restriction and normal saline IVFs * recent labs with normal sodium aside from 10/03/22 ER visit -- sodium was 129mmol/L * admission sodium 115 but dropped to as low as 110mmol/L * etiology not clear * denies excessive free water intake * no culprit medicines (SSRI, thiazide diuretics, PPIs, narcotics...etc) * however, does have BPH and smoking history/ COPD by pCXR (both of which can predispose to low sodium levels) * evaluation to date: * urine electrolytes prerenal (but no improvement in sodium with normal saline IVFs) * TSH and cortisol okay * SPEP negative for paraproteinemia; UPEP not done(?) - will reorder * urine osmolality 799, serum osmolality 248 * 3% saline given several times but sodium still remains low * on fluid restriction * added salt tabs + low dose lasix -- 2gram tid + lasix 20mg tid * follow repeat sodium levels * Nephrology on board. Appreciate their input (2) Afib: Qualifiers: Atrial fibrillation type: paroxysmal Qualified Code(s): I48.0 - Paro xysmal atrial fibrillation Code(s): I48.91 - Unspecified atrial fibrillation Status: Chronic Assessment and Plan: * continue rate control strategy. change atenolol to metoprolol b.i.d. for 24 hour coverage * anticoagulation resumed (3) Acute UTI: Code(s): N39.0 - Urinary tract infection, site not specified Status: Acute Assessment and Plan: * urine culture negative * off antibiotics (4) Hematuria: Qualifiers: Hematuria type: unspecified type Qualified Code(s): R31.9 - Hematuria, unspecified Code(s): R31.9 - Hematuria, unspecified Status: Acute Assessment and Plan: * resolved (5) HLD (hyperlipidemia): Qualifiers: Hyperlipidemia type: unspecified Qualified Code(s): E78.5 - Hyperlipidemia, unspecified Code(s): E78.5 - Hyperlipidemia, unspecified Status: Acute (6) COPD (chronic obstructive pulmonary disease): Qualifiers: COPD type: unspecified COPD Qualified Code(s): J44.9 - Chronic obstructive pulmonary disease, unspecified Code(s): J44.9 - Chronic obstructive pulmonary disease, unspecified Status: Acute Assessment and Plan: Continue nebulization Time Spent With Patient Time with patient: 25 - 35 minutes Subjective Date/time seen: 10/19/22 11:03 Interval history: Asymptomatic Review of Systems Review of Systems: All systems reviewed & are unremarkable except as noted in HPI and below Objective Data Vital Signs Vital Signs: Vital Signs - 24 hr 10/18/22 12:27 10/18/22 13:31 10/18/22 12:00 Temperature 96.3 F L Pulse Rate 116 H 101 H 108 H Respiratory Rate 20 18 Blood Pressure 120/79 Pulse Oximetry 97 Oxygen Delivery 10/18/22 12:00 10/18/22 14:00 10/18/22 13:50 Temperature Pulse Rate 100 100 Respiratory Rate 18 Blood Pressure Pulse Oximetry Oxygen Delivery Room Air 10/18/22
--- NOTE | 2022-10-19 11:03 | PM.IMPN ---
Progress Note: A&P Assessment and Plan (1) Hyponatremia: Code(s): E87.1 - Hypo-osmolality and hyponatremia Status: Acute Assessment and Plan: Improving does have a history of this in October 2021 this was secondary oxybutynin use and excess free water intake - resolved with fluid restriction and normal saline IVFs recent labs with normal sodium aside from 10/03/22 ER visit -- sodium was 129mmol/L admission sodium 115 but dropped to as low as 110mmol/L etiology not clear denies excessive free water intake no culprit medicines (SSRI, thiazide diuretics, PPIs, narcotics...etc) however, does have BPH and smoking history/ COPD by pCXR (both of which can predispose to low sodium levels) evaluation to date: urine electrolytes prerenal (but no improvement in sodium with normal saline IVFs) TSH and cortisol okay SPEP negative for paraproteinemia; UPEP not done(?) - will reorder urine osmolality 799, serum osmolality 248 3% saline given several times but sodium still remains low on fluid restriction added salt tabs + low dose lasix -- 2gram tid + lasix 20mg tid follow repeat sodium levels Nephrology on board. Appreciate their input (2) Afib: Qualifiers: Atrial fibrillation type: paroxysmal Qualified Code(s): I48.0 - Paroxysmal atrial fibrillation Code(s): I48.91 - Unspecified atrial fibrillation Status: Chronic Assessment and Plan: continue rate control strategy. change atenolol to metoprolol b.i.d. for 24 hour coverage anticoagulation resumed (3) Acute UTI: Code(s): N39.0 - Urinary tract infection, site not specified Status: Acute Assessment and Plan: urine culture negative off antibiotics (4) Hematuria: Qualifiers: Hematuria type: unspecified type Qualified Code(s): R31.9 - Hematuria, unspecified Code(s): R31.9 - Hematuria, unspecified Status: Acute Assessment and Plan: resolved (5) HLD (hyperlipidemia): Qualifiers: Hyperlipidemia type: unspecified Qualified Code(s): E78.5 - Hyperlipidemia, unspecified Code(s): E78.5 - Hyperlipidemia, unspecified Status: Acute (6) COPD (chronic obstructive pulmonary disease): Qualifiers: COPD type: unspecified COPD Qualified Code(s): J44.9 - Chronic obstructive pulmonary disease, unspecified Code(s): J44.9 - Chronic obstructive pulmonary disease, unspecified Status: Acute Assessment and Plan: Continue nebulization Time Spent With Patient Time with patient: 25 - 35 minutes Subjective Date/time seen: 10/19/22 11:03 Interval history: Asymptomatic Review of Systems Review of Systems: All systems reviewed & are unremarkable except as noted in HPI and below Objective Data Vital Signs Vital Signs: Vital Signs - 24 hr 10/18/22 12:27 10/18/22 13:31 10/18/22 12:00 Temperature 96.3 F L Pulse Rate 116 H 101 H 108 H Respiratory Rate 20 18 Blood Pressure 120/79 Pulse Oximetry 97 Oxygen Delivery 10/18/22 12:00 10/18/22 14:00 10/18/22 13:50 Temperature Pulse Rate 100 100 Respiratory Rate 18 Blood Pressure Pulse Oximetry Oxygen Delivery Room Air 10/18/22 16:35 10/18/22 16:00 10/18/22 16:00 Temperature 97.3 F L Pulse Rate 109 H 107 H Respiratory Rate 18 Blood Pressure 109/60 Pulse Oximetry 99 Oxygen Delivery Room Air 10/18/22 18:00 10/18/22 20:00 10/18/22 20:24 Temperature 98.7 F Pulse Rate 122 H 101 H 99 Respiratory Rate 20 18 Blood Pressure 131/84 Pulse Oximetry 99 Oxygen Delivery 10/18/22 21:03 10/19/22 00:00 10/18/22 20:34 Temperature 98.2 F Pulse Rate 148 H 102 H 105 H Respiratory Rate 16 18 Blood Pressure 123/72 Pulse Oximetry 96 Oxygen Delivery 10/19/22 01:08 10/18/22 20:00 10/19/22 00:00 Temperature Pulse Rate 100 Respiratory Rate 18 Blood Pressure Pulse Oximetry O
[2022-10-19] MEDS: CENTRAL LINE FLUSH 10 ML IV PUSH ×2 (13:04→20:54)
[2022-10-19] MEDS: SODIUM CHLORIDE 3% 270 ML 90 ML IV CONT (13:04)
[2022-10-19 18:18] LABS: Sodium 130 mmol/L (137-145)
[2022-10-20] VITALS (25 sets, daily range): BP systolic 106–133; BP diastolic 61–74; PULSE 88–122; RESP 16–20; TEMP 36.2–36.9; O2SAT 93–100
[2022-10-20 01:11] LABS: Sodium 128 mmol/L (137-145)
[2022-10-20] MEDS: IPRATROPIUM BR 0.02% INH SOLN 0.5 MG/2.5 ML VIAL INHALATION ×4 (02:49→19:40)
[2022-10-20] MEDS: ALBUTEROL SULFATE NEB 2.5 MG/3 ML INH INHALATION ×4 (02:49→19:40)
[2022-10-20] MEDS: CENTRAL LINE FLUSH 10 ML IV PUSH ×3 (06:09→21:04)
[2022-10-20 06:25] LABS: Albumin Level 3.1 g/dL (3.5-5.1); Anion Gap 3 mmol/L (8-16); Blood Urea Nitrogen 13 mg/dL (9-20); Carbon Dioxide 35 mmol/L (22-30); Chloride 89 mmol/L (98-107); Estimated CRCL calculation 83 ml/min; Estimated Glomerular Filt Rate > 60; Glucose 91 mg/dL (65-110); Phosphorus 3.6 mg/dL (2.5-4.5); Potassium 3.3 mmol/L (3.4-5.0); Sodium 127 mmol/L (137-145)
--- NOTE | 2022-10-20 09:20 | P.PNNP_ITS ---
Progress Note: A&P Assessment and Plan (1) Hyponatremia: Code(s): E87.1 - Hypo-osmolality and hyponatremia Status: Acute Assessment and Plan: * acute with slow improvement to date * this is been a difficult course but he the sodium was up to 125 * does have a history of this in October 2021 * this was secondary oxybutynin use and excess free water intake - resolved with fluid restriction and normal saline IVFs * he did have some symptoms earlier but none now * etiology not clear * denies excessive free water intake * no culprit medicines (SSRI, thiazide diuretics, PPIs, narcotics...etc) * however, does have BPH and smoking history/ COPD by pCXR (both of which can predispose to low sodium levels) * evaluation to date: * urine electrolytes prerenal (but no improvement in sodium with normal saline IVFs) * TSH and cortisol okay * SPEP negative for paraproteinemia; UPEP pending * urine osmolality 799, serum osmolality 248 * treatment includes: * fluid restriction - 800 cc per day. * sodium chloride tablets and Lasix * intermittent hypertonic saline * demeclocycline * follow repeat sodium levels (2) Hematuria: Qualifiers: Hematuria type: unspecified type Qualified Code(s): R31.9 - Hematuria, unspecified Code(s): R31.9 - Hematuria, unspecified Status: Acute Assessment and Plan: * resolved * as noted by admission complaint and urinalysis * holding anticoagulation on admission * Urology following with recommendations noted -- etiology thought to be secondary to BPH (3) Afib: Qualifiers: Atrial fibrillation type: paroxysmal Qualified Code(s): I48.0 - Paroxysmal atrial fibrillation Code(s): I48.91 - Unspecified atrial fibrillation Status: Chronic Assessment and Plan: * continue rate control strategy * anticoagulation resumed Will continue to follow. Subjective Date/time seen: 10/20/22 09:20 Interval history: Follow-up for acute hyponatremia. Received another round of 3% saline yesterday with resultant sodium up to 130mmol/L; sodium has dropped a bit by AM labs down to 127mmol/L; remains asymptomatic and in no apparent distress; no other issues/events overnight or earlier this morning. Exam Narrative: General: WD/WN male in NAD Heart: tachycardic, normal S1 and S2; no rub Lungs: clear to ausculation Abdomen: soft, nontender, nondistended, positive bowel sounds Extremities: no cyanosis or clubbing; trace edema Skin: warm and intact Objective Data Vital Signs Vital Signs: Vital Signs Temp Pulse Resp BP Pulse Ox O2 Del Method FiO2 10/20/22 09:20 122 H 10/20/22 08:00 98.0 F 112 H 19 128/72 100 10/20/22 08:03 109 H 16 10/20/22 07:52 105 H 16 93 Room Air 10/20/22 07:50 105 H 16 10/20/22 06:00 98 10/20/22 04:00 108 H 16 100 Room Air 21 10/20/22 04:00 108 H 10/20/22 02:00 104 H 10/20/22 03:21 108 H 16 10/20/22 03:14 97.1 F L 95 20 133/69 100 10/20/22 02:50 99 16 10/20/22 00:00 104 H 16 97 Room Air 10/20/22 00:00 104 H 10/19/22 23:38 97.2 F L 105 H 16 119/67 97 10/19/22 22:00 88 10/19/22 20:00 101 H 18 95
--- NOTE | 2022-10-20 09:20 | PM.PNNEP ---
Progress Note: A&P Assessment and Plan (1) Hyponatremia: Code(s): E87.1 - Hypo-osmolality and hyponatremia Status: Acute Assessment and Plan: acute with slow improvement to date this is been a difficult course but he the sodium was up to 125 does have a history of this in October 2021 this was secondary oxybutynin use and excess free water intake - resolved with fluid restriction and normal saline IVFs he did have some symptoms earlier but none now etiology not clear denies excessive free water intake no culprit medicines (SSRI, thiazide diuretics, PPIs, narcotics...etc) however, does have BPH and smoking history/ COPD by pCXR (both of which can predispose to low sodium levels) evaluation to date: urine electrolytes prerenal (but no improvement in sodium with normal saline IVFs) TSH and cortisol okay SPEP negative for paraproteinemia; UPEP pending urine osmolality 799, serum osmolality 248 treatment includes: fluid restriction - 800 cc per day. sodium chloride tablets and Lasix intermittent hypertonic saline demeclocycline follow repeat sodium levels (2) Hematuria: Qualifiers: Hematuria type: unspecified type Qualified Code(s): R31.9 - Hematuria, unspecified Code(s): R31.9 - Hematuria, unspecified Status: Acute Assessment and Plan: resolved as noted by admission complaint and urinalysis holding anticoagulation on admission Urology following with recommendations noted -- etiology thought to be secondary to BPH (3) Afib: Qualifiers: Atrial fibrillation type: paroxysmal Qualified Code(s): I48.0 - Paroxysmal atrial fibrillation Code(s): I48.91 - Unspecified atrial fibrillation Status: Chronic Assessment and Plan: continue rate control strategy anticoagulation resumed Will continue to follow. Subjective Date/time seen: 10/20/22 09:20 Interval history: Follow-up for acute hyponatremia. Received another round of 3% saline yesterday with resultant sodium up to 130mmol/L; sodium has dropped a bit by AM labs down to 127mmol/L; remains asymptomatic and in no apparent distress; no other issues/events overnight or earlier this morning. Exam Narrative: General: WD/WN male in NAD Heart: tachycardic, normal S1 and S2; no rub Lungs: clear to ausculation Abdomen: soft, nontender, nondistended, positive bowel sounds Extremities: no cyanosis or clubbing; trace edema Skin: warm and intact Objective Data Vital Signs Vital Signs: Vital Signs Temp Pulse Resp BP Pulse Ox O2 Del Method FiO2 10/20/22 09:20 122 H 10/20/22 08:00 98.0 F 112 H 19 128/72 100 10/20/22 08:03 109 H 16 10/20/22 07:52 105 H 16 93 Room Air 10/20/22 07:50 105 H 16 10/20/22 06:00 98 10/20/22 04:00 108 H 16 100 Room Air 21 10/20/22 04:00 108 H 10/20/22 02:00 104 H 10/20/22 03:21 108 H 16 10/20/22 03:14 97.1 F L 95 20 133/69 100 10/20/22 02:50 99 16 10/20/22 00:00 104 H 16 97 Room Air 21 10/20/22 00:00 104 H 10/19/22 23:38 97.2 F L 105 H 16 119/67 97 10/19/22 22:00 88 10/19/22 20:00 101 H 18 95 Room Air 21 10/19/22 20:00 101 H 10/19/22 20:00 97.3 F L 126 H 20 119/75 95 10/19/22 20:54 76 10/19/22 20:34 106 H 18 10/19/22 20:20 102 H 18 10/19/22 18:00 113 H 10/19/22 16:00 94 10/19/22 16:00 Room Air 10/19/22 16:00 96.9 F L 98 16 107/65 93 10/19/22 14:00 107 H 10/19/22 13:59 112 H 18 10/19/22 13:40 99 18 Intake/Output Intake/Output: Intake & Output 10/17/22 10/18/22 10/19/22 10/20/22 23:59 23:59 23:59 23:59 Intake Total 1080 890 980 320 Output Total 1400 5400 3800 3900 Balance -857 -2158 -2820 -0820 Meds/Results Medications: Active Medications Generic Name Dose Rou
[2022-10-20] MEDS: DEMECLOCYCLINE HCL 150 MG TABLET PO ×4 (09:26→20:43)
[2022-10-20] MEDS: METOPROLOL TARTRATE 50 MG TAB PO ×2 (09:26→20:43)
[2022-10-20] MEDS: CHOLECALCIFEROL 1,000 UNITS TABLET 2000 UNITS PO (09:26)
[2022-10-20] MEDS: PANTOPRAZOLE 40 MG TABLET PO (09:26)
[2022-10-20] MEDS: polyethylene glycoL 3350 17 GM POWD.PACK PO (09:26)
[2022-10-20] MEDS: SODIUM CHLORIDE 1 GM TABLET 2 GM PO ×3 (09:26→17:48)
[2022-10-20] MEDS: FINASTERIDE 5 MG TABLET PO (09:26)
[2022-10-20] MEDS: SIMVASTATIN 20 MG TABLET PO (09:26)
[2022-10-20] MEDS: FUROSEMIDE 20 MG TABLET PO ×3 (09:26→17:48)
[2022-10-20] MEDS: APIXABAN 5 MG TABLET PO ×2 (09:26→20:43)
[2022-10-20] MEDS: TAMSULOSIN HCL 0.4 MG CAPSULE BY MOUTH (09:27)
[2022-10-20] MEDS: POTASSIUM CHLORIDE 20 MEQ ER TABLET 40 MEQ PO (09:34)
--- NOTE | 2022-10-20 11:18 | P.PNIM_ITS ---
Progress Note: A&P Assessment and Plan (1) Hyponatremia: Code(s): E87.1 - Hypo-osmolality and hyponatremia Status: Acute Assessment and Plan: * Improving * does have a history of this in October 2021 * this was secondary oxybutynin use and excess free water intake - resolved with fluid restriction and normal saline IVFs * etiology not clear * denies excessive free water intake * no culprit medicines (SSRI, thiazide diuretics, PPIs, narcotics...etc) * however, does have BPH and smoking history/ COPD by pCXR (both of which can predispose to low sodium levels) * evaluation to date: * urine electrolytes prerenal (but no improvement in sodium with normal saline IVFs) * TSH and cortisol okay * SPEP negative for paraproteinemia; UPEP not done(?) - will reorder * urine osmolality 799, serum osmolality 248 * 3% saline given several times but sodium still remains low * on fluid restriction * added salt tabs + low dose lasix -- 2gram tid + lasix 20mg tid * follow repeat sodium levels * Nephrology on board. Appreciate their input (2) Afib: Qualifiers: Atrial fibrillation type: paroxysmal Qualified Code(s): I48.0 - Paroxysmal atrial fibrillation Code(s): I48.91 - Unspecified atrial fibrillation Status: Chronic Assessment and Plan: * continue rate control strategy. changed atenolol to metoprolol b.i.d. for 24 hour coverage * anticoagulation resumed (3) Acute UTI: Code(s): N39.0 - Urinary tract infection, site not specified Status: Acute Assessment and Plan: * urine culture negative * off antibiotics (4) Hematuria: Qualifiers: Hematuria type: unspecified type Qualified Code(s): R31.9 - Hematuria, unspecified Code(s): R31.9 - Hematuria, unspecified Status: Acute Assessment and Plan: * resolved (5) HLD (hyperlipidemia): Qualifiers: Hyperlipidemia type: unspecified Qualified Code(s): E78.5 - Hyperlipidemia, unspecified Code(s): E78.5 - Hyperlipidemia, unspecified Status: Acute (6) COPD (chronic obstructive pulmonary disease): Qualifiers: COPD type: unspecified COPD Qualified Code(s): J44.9 - Chronic obstructive pulmonary disease, unspecified Code(s): J44.9 - Chronic obstructive pulmonary disease, unspecified Status: Acute Assessment and Plan: Continue nebulization Time Spent With Patient Time with patient: 25 - 35 minutes Subjective Date/time seen: 10/20/22 11:18 Interval history: Asymptomatic Review of Systems Review of Systems: All systems reviewed & are unremarkable except as noted in HPI and below Exam Narrative: General: WD/WN male in NAD Heart: tachycardic, normal S1 and S2; no rub or gallop Lungs: few scattered wheezes and decreased at bases Abdomen: soft, nontender, nondistended, positive bowel sounds Extremities: no cyanosis or clubbing; trace edema Skin: No rash Objective Data Vital Signs Vital Signs: Vital Signs - 24 hr 10/19/22 11:43 10/19/22 13:40 10/19/22 12:00 Temperature 98.1 F Pulse Rate 112 H 99 Respiratory Rate 20 18 Blood Pressure 114/69 Pulse Oximetry 94 Oxygen Delivery Room Air Fraction of Inspired Oxygen 10/19/22 13:59 10/19/22 12:00
--- NOTE | 2022-10-20 11:18 | PM.IMPN ---
Progress Note: A&P Assessment and Plan (1) Hyponatremia: Code(s): E87.1 - Hypo-osmolality and hyponatremia Status: Acute Assessment and Plan: Improving does have a history of this in October 2021 this was secondary oxybutynin use and excess free water intake - resolved with fluid restriction and normal saline IVFs etiology not clear denies excessive free water intake no culprit medicines (SSRI, thiazide diuretics, PPIs, narcotics...etc) however, does have BPH and smoking history/ COPD by pCXR (both of which can predispose to low sodium levels) evaluation to date: urine electrolytes prerenal (but no improvement in sodium with normal saline IVFs) TSH and cortisol okay SPEP negative for paraproteinemia; UPEP not done(?) - will reorder urine osmolality 799, serum osmolality 248 3% saline given several times but sodium still remains low on fluid restriction added salt tabs + low dose lasix -- 2gram tid + lasix 20mg tid follow repeat sodium levels Nephrology on board. Appreciate their input (2) Afib: Qualifiers: Atrial fibrillation type: paroxysmal Qualified Code(s): I48.0 - Paroxysmal atrial fibrillation Code(s): I48.91 - Unspecified atrial fibrillation Status: Chronic Assessment and Plan: continue rate control strategy. changed atenolol to metoprolol b.i.d. for 24 hour coverage anticoagulation resumed (3) Acute UTI: Code(s): N39.0 - Urinary tract infection, site not specified Status: Acute Assessment and Plan: urine culture negative off antibiotics (4) Hematuria: Qualifiers: Hematuria type: unspecified type Qualified Code(s): R31.9 - Hematuria, unspecified Code(s): R31.9 - Hematuria, unspecified Status: Acute Assessment and Plan: resolved (5) HLD (hyperlipidemia): Qualifiers: Hyperlipidemia type: unspecified Qualified Code(s): E78.5 - Hyperlipidemia, unspecified Code(s): E78.5 - Hyperlipidemia, unspecified Status: Acute (6) COPD (chronic obstructive pulmonary disease): Qualifiers: COPD type: unspecified COPD Qualified Code(s): J44.9 - Chronic obstructive pulmonary disease, unspecified Code(s): J44.9 - Chronic obstructive pulmonary disease, unspecified Status: Acute Assessment and Plan: Continue nebulization Time Spent With Patient Time with patient: 25 - 35 minutes Subjective Date/time seen: 10/20/22 11:18 Interval history: Asymptomatic Review of Systems Review of Systems: All systems reviewed & are unremarkable except as noted in HPI and below Exam Narrative: General: WD/WN male in NAD Heart: tachycardic, normal S1 and S2; no rub or gallop Lungs: few scattered wheezes and decreased at bases Abdomen: soft, nontender, nondistended, positive bowel sounds Extremities: no cyanosis or clubbing; trace edema Skin: No rash Objective Data Vital Signs Vital Signs: Vital Signs - 24 hr 10/19/22 11:43 10/19/22 13:40 10/19/22 12:00 Temperature 98.1 F Pulse Rate 112 H 99 Respiratory Rate 20 18 Blood Pressure 114/69 Pulse Oximetry 94 Oxygen Delivery Room Air Fraction of Inspired Oxygen 10/19/22 13:59 10/19/22 12:00 10/19/22 14:00 Temperature Pulse Rate 112 H 114 H 107 H Respiratory Rate 18 Blood Pressure Pulse Oximetry Oxygen Delivery Fraction of Inspired Oxygen 10/19/22 16:00 10/19/22 16:00 10/19/22 16:00 Temperature 96.9 F L Pulse Rate 98 94 Respiratory Rate 16 Blood Pressure 107/65 Pulse Oximetry 93 Oxygen Delivery Room Air Fraction of Inspired Oxygen 10/19/22 18:00 10/19/22 20:20 10/19/22 20:34 Temperature Pulse Rate 113 H 102 H 106 H Respiratory Rate 18 18 Blood Pressure Pulse Oximetry Oxygen Delivery Fraction of Inspired Oxygen 10/19/22 20:54 10/19/22 20:00 10/19/22 20:00 Temperature 97.3
[2022-10-20 12:47] LABS: Sodium 127 mmol/L (137-145)
[2022-10-20 18:10] LABS: Sodium 127 mmol/L (137-145)
--- NOTE | 2022-10-20 18:37 | PC.NURSE ---
Notified Dr. Gee of Na result of 127. New order to recheck in AM.
[2022-10-21] VITALS (25 sets, daily range): BP systolic 94–122; BP diastolic 58–78; PULSE 84–115; RESP 18–20; TEMP 36.4–37.2; O2SAT 95–98
[2022-10-21] MEDS: ALBUTEROL SULFATE NEB 2.5 MG/3 ML INH INHALATION ×4 (01:28→20:23)
[2022-10-21] MEDS: IPRATROPIUM BR 0.02% INH SOLN 0.5 MG/2.5 ML VIAL INHALATION ×4 (01:28→20:23)
[2022-10-21 03:49] LABS: Anion Gap 4 mmol/L (8-16); Blood Urea Nitrogen 14 mg/dL (9-20); Calcium 8.1 mg/dL (8.4-10.2); Carbon Dioxide 35 mmol/L (22-30); Chloride 89 mmol/L (98-107); Estimated CRCL calculation 83 ml/min; Estimated Glomerular Filt Rate > 60; Glucose 99 mg/dL (65-110); Phosphorus 3.9 mg/dL (2.5-4.5); Potassium 3.6 mmol/L (3.4-5.0); Sodium 128 mmol/L (137-145)
[2022-10-21] MEDS: CENTRAL LINE FLUSH 10 ML IV PUSH ×3 (05:14→20:19)
[2022-10-21 07:57] LABS: Creatinine, Random Urine 114; Total Protein/Creatinine Ratio 7.088
[2022-10-21] MEDS: FUROSEMIDE 20 MG TABLET PO ×3 (08:43→17:22)
[2022-10-21] MEDS: TAMSULOSIN HCL 0.4 MG CAPSULE BY MOUTH (08:43)
[2022-10-21] MEDS: SIMVASTATIN 20 MG TABLET PO (08:43)
[2022-10-21] MEDS: METOPROLOL TARTRATE 50 MG TAB PO ×2 (08:43→20:18)
[2022-10-21] MEDS: SODIUM CHLORIDE 1 GM TABLET 2 GM PO ×3 (08:43→17:22)
[2022-10-21] MEDS: polyethylene glycoL 3350 17 GM POWD.PACK PO (08:43)
[2022-10-21] MEDS: APIXABAN 5 MG TABLET PO ×2 (08:43→20:18)
[2022-10-21] MEDS: DEMECLOCYCLINE HCL 150 MG TABLET PO ×4 (08:43→20:18)
[2022-10-21] MEDS: FINASTERIDE 5 MG TABLET PO (08:43)
[2022-10-21] MEDS: PANTOPRAZOLE 40 MG TABLET PO (08:43)
[2022-10-21] MEDS: CHOLECALCIFEROL 1,000 UNITS TABLET 2000 UNITS PO (08:46)
[2022-10-21] MEDS: CYANOCOBALAMIN 250 MCG TABLET BY MOUTH (08:56)
--- NOTE | 2022-10-21 09:40 | PCOTNOTE ---
Per RN, Patient has an increased heart rate, not to be seen at this time.
--- NOTE | 2022-10-21 10:03 | PCPTNOTE ---
Attempted to see patient for Pt, however patient had a phone call and reported wanted to take phone call.
--- NOTE | 2022-10-21 11:47 | P.PNIM_ITS ---
Progress Note: A&P Assessment and Plan (1) Hyponatremia: Code(s): E87.1 - Hypo-osmolality and hyponatremia Status: Acute Assessment and Plan: * Improving * does have a history of this in October 2021 * this was secondary oxybutynin use and excess free water intake - resolved with fluid restriction and normal saline IVFs * etiology not clear * denies excessive free water intake * no culprit medicines (SSRI, thiazide diuretics, PPIs, narcotics...etc) * however, does have BPH and smoking history/ COPD by pCXR (both of which can predispose to low sodium levels) * evaluation to date: * urine electrolytes prerenal (but no improvement in sodium with normal saline IVFs) * TSH and cortisol okay * SPEP negative for paraproteinemia; UPEP not done(?) - will reorder * urine osmolality 799, serum osmolality 248 * 3% saline given several times * on fluid restriction * Salt tabs + low dose lasix * follow repeat sodium levels * Nephrology on board. Appreciate their input (2) Afib: Qualifiers: Atrial fibrillation type: paroxysmal Qualified Code(s): I48.0 - Paroxysmal atrial fibrillation Code(s): I48.91 - Unspecified atrial fibrillation Status: Chronic Assessment and Plan: * changed atenolol to metoprolol b.i.d. for 24 hour coverage * anticoagulation resumed (3) Acute UTI: Code(s): N39.0 - Urinary tract infection, site not specified Status: Acute Assessment and Plan: * urine culture negative * off antibiotics (4) Hematuria: Qualifiers: Hematuria type: unspecified type Qualified Code(s): R31.9 - Hematuria, unspecified Code(s): R31.9 - Hematuria, unspecified Status: Acute Assessment and Plan: * resolved (5) HLD (hyperlipidemia): Qualifiers: Hyperlipidemia type: unspecified Qualified Code(s): E78.5 - Hyperlipidemia, unspecified Code(s): E78.5 - Hyperlipidemia, unspecified Status: Acute (6) COPD (chronic obstructive pulmonary disease): Qualifiers: COPD type: unspecified COPD Qualified Code(s): J44.9 - Chronic obstructive pulmonary disease, unspecified Code(s): J44.9 - Chronic obstructive pulmonary disease, unspecified Status: Acute Assessment and Plan: Continue nebulization Time Spent With Patient Time with patient: 25 - 35 minutes Subjective Date/time seen: 10/21/22 11:47 Interval history: Asymptomatic Review of Systems Review of Systems: All systems reviewed & are unremarkable except as noted in HPI and below Exam Narrative: General: WD/WN male in NAD Heart: tachycardic, normal S1 and S2; no rub or gallop Lungs: few scattered wheezes and decreased at bases Abdomen: soft, nontender, nondistended, positive bowel sounds Extremities: no cyanosis or clubbing; trace edema Skin: No rash Objective Data Vital Signs Vital Signs: Vital Signs - 24 hr 10/20/22 12:00 10/20/22 13:57 10/20/22 12:00 Temperature 98.4 F Pulse Rate 108 H 103 H 109 H Respiratory Rate 16 16 Blood Pressure 109/67 Pulse Oximetry 98 Oxygen Delivery Fraction of Inspired Oxygen 10/20/22 14:00 10/20/22 12:00 10/20/22 16:00 Temperature Pulse Rate 101 H Respiratory Rate
--- NOTE | 2022-10-21 11:47 | PM.IMPN ---
Progress Note: A&P Assessment and Plan (1) Hyponatremia: Code(s): E87.1 - Hypo-osmolality and hyponatremia Status: Acute Assessment and Plan: Improving does have a history of this in October 2021 this was secondary oxybutynin use and excess free water intake - resolved with fluid restriction and normal saline IVFs etiology not clear denies excessive free water intake no culprit medicines (SSRI, thiazide diuretics, PPIs, narcotics...etc) however, does have BPH and smoking history/ COPD by pCXR (both of which can predispose to low sodium levels) evaluation to date: urine electrolytes prerenal (but no improvement in sodium with normal saline IVFs) TSH and cortisol okay SPEP negative for paraproteinemia; UPEP not done(?) - will reorder urine osmolality 799, serum osmolality 248 3% saline given several times on fluid restriction Salt tabs + low dose lasix follow repeat sodium levels Nephrology on board. Appreciate their input (2) Afib: Qualifiers: Atrial fibrillation type: paroxysmal Qualified Code(s): I48.0 - Paroxysmal atrial fibrillation Code(s): I48.91 - Unspecified atrial fibrillation Status: Chronic Assessment and Plan: changed atenolol to metoprolol b.i.d. for 24 hour coverage anticoagulation resumed (3) Acute UTI: Code(s): N39.0 - Urinary tract infection, site not specified Status: Acute Assessment and Plan: urine culture negative off antibiotics (4) Hematuria: Qualifiers: Hematuria type: unspecified type Qualified Code(s): R31.9 - Hematuria, unspecified Code(s): R31.9 - Hematuria, unspecified Status: Acute Assessment and Plan: resolved (5) HLD (hyperlipidemia): Qualifiers: Hyperlipidemia type: unspecified Qualified Code(s): E78.5 - Hyperlipidemia, unspecified Code(s): E78.5 - Hyperlipidemia, unspecified Status: Acute (6) COPD (chronic obstructive pulmonary disease): Qualifiers: COPD type: unspecified COPD Qualified Code(s): J44.9 - Chronic obstructive pulmonary disease, unspecified Code(s): J44.9 - Chronic obstructive pulmonary disease, unspecified Status: Acute Assessment and Plan: Continue nebulization Time Spent With Patient Time with patient: 25 - 35 minutes Subjective Date/time seen: 10/21/22 11:47 Interval history: Asymptomatic Review of Systems Review of Systems: All systems reviewed & are unremarkable except as noted in HPI and below Exam Narrative: General: WD/WN male in NAD Heart: tachycardic, normal S1 and S2; no rub or gallop Lungs: few scattered wheezes and decreased at bases Abdomen: soft, nontender, nondistended, positive bowel sounds Extremities: no cyanosis or clubbing; trace edema Skin: No rash Objective Data Vital Signs Vital Signs: Vital Signs - 24 hr 10/20/22 12:00 10/20/22 13:57 10/20/22 12:00 Temperature 98.4 F Pulse Rate 108 H 103 H 109 H Respiratory Rate 16 16 Blood Pressure 109/67 Pulse Oximetry 98 Oxygen Delivery Fraction of Inspired Oxygen 10/20/22 14:00 10/20/22 12:00 10/20/22 16:00 Temperature Pulse Rate 101 H Respiratory Rate Blood Pressure Pulse Oximetry 98 98 Oxygen Delivery Room Air Room Air Fraction of Inspired Oxygen 10/20/22 16:00 10/20/22 16:00 10/20/22 18:00 Temperature 98.4 F Pulse Rate 103 H 107 H 107 H Respiratory Rate 17 Blood Pressure 122/73 Pulse Oximetry 98 Oxygen Delivery Fraction of Inspired Oxygen 10/20/22 19:49 10/20/22 20:43 10/20/22 20:46 Temperature 97.8 F Pulse Rate 97 109 H 101 H Respiratory Rate 18 16 Blood Pressure 106/61 Pulse Oximetry 97 Oxygen Delivery Fraction of Inspired Oxygen 10/20/22 20:46 10/20/22 20:00 10/20/22 20:00 Temperature Pulse Rate 105 H 113 H 113 H Respiratory Rate 16 16 Blood Pressure Pulse
--- NOTE | 2022-10-21 12:11 | P.PNNP_ITS ---
Progress Note: A&P Assessment and Plan (1) Hyponatremia: Code(s): E87.1 - Hypo-osmolality and hyponatremia Status: Acute Assessment and Plan: * acute with slow improvement to date * sodium relatively stable (127 - 128) in the last 24 hours * does have a history of this in October 2021 * this was secondary oxybutynin use and excess free water intake - resolved with fluid restriction and normal saline IVFs * he did have some symptoms earlier but none now * etiology not clear * denies excessive free water intake * no culprit medicines (SSRI, thiazide diuretics, PPIs, narcotics...etc) * however, does have BPH and smoking history/ COPD by pCXR (both of which can predispose to low sodium levels) * evaluation to date: * urine electrolytes prerenal (but no improvement in sodium with normal saline IVFs) * TSH and cortisol okay * SPEP negative for paraproteinemia; UPEP with questionable monclonal band -- check serum/urine immunofixation * urine osmolality 799, serum osmolality 248 * treatment includes: * fluid restriction: 800 cc per day. * sodium chloride tablets and lasix * intermittent hypertonic saline * demeclocycline * follow repeat sodium levels (2) Hematuria: Qualifiers: Hematuria type: unspecified type Qualified Code(s): R31.9 - Hematuria, unspecified Code(s): R31.9 - Hematuria, unspecified Status: Acute Assessment and Plan: * had resolved but noted again * holding anticoagulation on admission * Urology following with recommendations noted -- etiology thought to be secondary to BPH * may need CBI again... (3) Afib: Qualifiers: Atrial fibrillation type: paroxysmal Qualified Code(s): I48.0 - Paroxysmal atrial fibrillation Code(s): I48.91 - Unspecified atrial fibrillation Status: Chronic Assessment and Plan: * continue rate control strategy * anticoagulation resumed Would not be opposed to discharge from renal perspective regarding his hyponatremia -- would continue current interventions (salt tabs, lasix, and fluid restriction) on discharge with repeat labs in a week to ensure stability if not improvement in sodium levels; he can follow-up with me in the office for ongoing monitoring. Will continue to follow. Subjective Date/time seen: 10/21/22 12:11 Interval history: Follow-up for acute hyponatremia. Sodium has been relatively stable for the last 24 hours without the need for 3% saline infusion; remains asymptomatic from low sodium levels; recurrence of hematuria today as noted by blood urine in ewing bag; no other apparent issues noted. Exam Narrative: General: WD/WN male in NAD Heart: tachycardic, normal S1 and S2; no rub Lungs: clear to ausculation Abdomen: soft, nontender, nondistended, positive bowel sounds Extremities: no cyanosis or clubbing; no edema Skin: no rash Objective Data Vital Signs Vital Signs: Vital Signs Temp Pulse Resp BP Pulse Ox O2 Del Method FiO2 10/21/22 12:00 98.9 F 110 H 18 94/58 L 96 Room Air 10/21/22 10:00 115 H 10/21/22 08:00 Room Air 10/21/22 08:00 111 H 10/21/22 08:43 113 H 10/21/22 08:00 100 20 10/21/22 07:58 98.8 F 101 H 20 122/61 96 10/21/22 07:47 98 20 10/21/22 07:47 97 Room
--- NOTE | 2022-10-21 12:11 | PM.PNNEP ---
Progress Note: A&P Assessment and Plan (1) Hyponatremia: Code(s): E87.1 - Hypo-osmolality and hyponatremia Status: Acute Assessment and Plan: acute with slow improvement to date sodium relatively stable (127 - 128) in the last 24 hours does have a history of this in October 2021 this was secondary oxybutynin use and excess free water intake - resolved with fluid restriction and normal saline IVFs he did have some symptoms earlier but none now etiology not clear denies excessive free water intake no culprit medicines (SSRI, thiazide diuretics, PPIs, narcotics...etc) however, does have BPH and smoking history/ COPD by pCXR (both of which can predispose to low sodium levels) evaluation to date: urine electrolytes prerenal (but no improvement in sodium with normal saline IVFs) TSH and cortisol okay SPEP negative for paraproteinemia; UPEP with questionable monclonal band -- check serum/urine immunofixation urine osmolality 799, serum osmolality 248 treatment includes: fluid restriction: 800 cc per day. sodium chloride tablets and lasix intermittent hypertonic saline demeclocycline follow repeat sodium levels (2) Hematuria: Qualifiers: Hematuria type: unspecified type Qualified Code(s): R31.9 - Hematuria, unspecified Code(s): R31.9 - Hematuria, unspecified Status: Acute Assessment and Plan: had resolved but noted again holding anticoagulation on admission Urology following with recommendations noted -- etiology thought to be secondary to BPH may need CBI again... (3) Afib: Qualifiers: Atrial fibrillation type: paroxysmal Qualified Code(s): I48.0 - Paroxysmal atrial fibrillation Code(s): I48.91 - Unspecified atrial fibrillation Status: Chronic Assessment and Plan: continue rate control strategy anticoagulation resumed Would not be opposed to discharge from renal perspective regarding his hyponatremia -- would continue current interventions (salt tabs, lasix, and fluid restriction) on discharge with repeat labs in a week to ensure stability if not improvement in sodium levels; he can follow-up with me in the office for ongoing monitoring. Will continue to follow. Subjective Date/time seen: 10/21/22 12:11 Interval history: Follow-up for acute hyponatremia. Sodium has been relatively stable for the last 24 hours without the need for 3% saline infusion; remains asymptomatic from low sodium levels; recurrence of hematuria today as noted by blood urine in ewing bag; no other apparent issues noted. Exam Narrative: General: WD/WN male in NAD Heart: tachycardic, normal S1 and S2; no rub Lungs: clear to ausculation Abdomen: soft, nontender, nondistended, positive bowel sounds Extremities: no cyanosis or clubbing; no edema Skin: no rash Objective Data Vital Signs Vital Signs: Vital Signs Temp Pulse Resp BP Pulse Ox O2 Del Method FiO2 10/21/22 12:00 98.9 F 110 H 18 94/58 L 96 Room Air 10/21/22 10:00 115 H 10/21/22 08:00 Room Air 10/21/22 08:00 111 H 10/21/22 08:43 113 H 10/21/22 08:00 100 20 10/21/22 07:58 98.8 F 101 H 20 122/61 96 10/21/22 07:47 98 20 10/21/22 07:47 97 Room Air 10/21/22 05:54 94 10/21/22 04:00 87 18 95 Room Air 21 10/21/22 04:00 89 10/21/22 03:45 97.8 F 84 18 99/66 L 95 10/21/22 02:00 90 10/21/22 01:35 110 H 18 10/21/22 01:28 112 H 18 10/20/22 23:30 88 20 97 Room Air 21 10/20/22 23:30 88 10/20/22 22:53 97.5 F L 100 20 124/74 97 10/20/22 21:03 110 H 10/20/22 20:00 113 H 16 97 Room Air 21 10/20/22 20:00 113 H 10/20/22 20:46 105 H 16 10/20/22 20:46 101 H 16 10/20/22 20:43 109 H 10/20/22 19:49 97.8 F 97 18 106/61 97 10/20/22 18:00 107 H Intake
[2022-10-21 14:36] LABS: Bacteria Urine None Seen /hpf; Non Pathogenic Casts 0-2; RBC Urine >100 /hpf (0-2); Squamous Epithelial Cell Urine None seen /hpf (Few)
[2022-10-21 14:39] LABS: Appearance Urine Cloudy (Clear); Bilirubin Urine 1+ (Negative); Blood Urine 3+ (Negative); Color Urine Amber (Yellow); Glucose Urine UA Negative (Negative); Ketones Urine Negative (Negative); Leukocyte Esterase Ur Trace LEU/UL (Negative); Nitrate Urine Negative (Negative); Protein Urine 1+ mg/dL (Negative); Urobilinogen Urine >=8.0 mg/dL (<2.0); pH Urine 7.5 (5.0-9.0)
[2022-10-21 14:43] LABS: Add Urine Microscopic? YES
--- NOTE | 2022-10-21 15:51 | WPDUROPN2 ---
Progress Note: A&P Assessment and Plan (1) Acute UTI: Code(s): N39.0 - Urinary tract infection, site not specified Status: Acute Assessment and Plan: Collect a repeat urine for culture. (2) BPH (benign prostatic hyperplasia): Qualifiers: Lower urinary tract symptom detail: unspecified Code(s): N40.0 - Benign prostatic hyperplasia without lower urinary tract symptoms Status: Chronic (3) Gross hematuria: Code(s): R31.0 - Gross hematuria Status: Acute Assessment and Plan: Irrigate ewing q shift and PRN. NO etiology for gross hematuria per CT. F/U for cysto when discharged. No need for CBI at this time, if bleeding becomes heavy, will need to replace ewing with a 3 way and start CBI. Subjective Subjective Date/Time Seen: 10/21/22 15:51 Interval history: Patient developed gross hematuria today acutely. He denies tugging or pulling at his ewing catheter. He had a CT scan this admission which showed no etiology for hematuria. A negative urine culture was also done initially. He had CBI upon admission but then a voiding trial and when he failed a regular catheter was then placed. He has no pain at this time. Review of Systems Cardiovascular: Cardiovascular: Denies chest pain Respiratory: Respiratory: Reports no additional respiratory complaints Gastrointestinal: Gastrointestinal: Denies abdominal pain, Denies nausea and Denies vomiting Genitourinary: Genitourinary: Reports hematuria, Denies flank pain, Denies testicular pain, Denies urinary frequency, Denies urinary hesitancy, Denies urinary incontinence and Denies urinary urgency Exam Const: General: cooperative and comfortable Cardio: Rate: tachycardic GI: GI Palp: Yes Soft to palpation and No Tenderness to palpation present (GI) : General: Yes no CVA tenderness Urinary Catheter: Urinary Catheter: patent and draining, urine cloudy and urine pink Extrem: Right lower extremity: no edema Left lower extremity: no edema Objective Data Vital Signs Vital Signs: Vital Signs - 24 hr 10/20/22 16:00 10/20/22 16:00 10/20/22 16:00 Temperature 98.4 F Pulse Rate 103 H 107 H Respiratory Rate 17 Blood Pressure 122/73 Pulse Oximetry 98 98 Oxygen Delivery Room Air Fraction of Inspired Oxygen 10/20/22 18:00 10/20/22 19:49 10/20/22 20:43 Temperature 97.8 F Pulse Rate 107 H 97 109 H Respiratory Rate 18 Blood Pressure 106/61 Pulse Oximetry 97 Oxygen Delivery Fraction of Inspired Oxygen 10/20/22 20:46 10/20/22 20:46 10/20/22 20:00 Temperature Pulse Rate 101 H 105 H 113 H Respiratory Rate 16 16 Blood Pressure Pulse Oximetry Oxygen Delivery Fraction of Inspired Oxygen 10/20/22 20:00 10/20/22 21:03 10/20/22 22:53 Temperature 97.5 F L Pulse Rate 113 H 110 H 100 Respiratory Rate 16 20 Blood Pressure 124/74 Pulse Oximetry 97 97 Oxygen Delivery Room Air Fraction of Inspired Oxygen 21 10/20/22 23:30 10/20/22 23:30 10/21/22 01:28 Temperature Pulse Rate 88 88 112 H Respiratory Rate 20 18 Blood Pressure Pulse Oximetry 97 Oxygen Delivery Room Air Fraction of Inspired Oxygen 21 10/21/22 01:35 10/21/22 02:00 10/21/22 03:45 Temperature 97.8 F Pulse Rate 110 H 90 84 Respiratory Rate 18 18 Blood Pressure 99/66 L Pulse Oximetry 95 Oxygen Delivery Fraction of Inspired Oxygen 10/21/22 04:00 10/21/22 04:00 10/21/22 05:54 Temperature Pulse Rate 89 87 94 Respiratory Rate 18 Blood Pressure Pulse Oximetry 95 Oxygen Delivery Room Air Fraction of Inspired Oxygen 21 10/21/22 07:47 10/21/22 07:47 10/21/22 07:58 Temperature 98.8 F Pulse Rate 98 101 H Respiratory Rate 20 20 Blood Pressure 122/61 Pulse Oximetry 97 96 Oxygen Delivery Room Air Fraction of Inspired Oxygen 10/21/22 08:00 10/21/22 08:43 10/21/22 08:00 Temperature Pulse Rate 100 113 H 111 H Respirat
[2022-10-22] VITALS (15 sets, daily range): BP systolic 109–125; BP diastolic 61–69; PULSE 86–126; RESP 14–20; TEMP 35.8–36.4; O2SAT 96–100
[2022-10-22] MEDS: ALBUTEROL SULFATE NEB 2.5 MG/3 ML INH INHALATION ×3 (01:55→13:20)
[2022-10-22] MEDS: IPRATROPIUM BR 0.02% INH SOLN 0.5 MG/2.5 ML VIAL INHALATION ×3 (01:55→13:21)
[2022-10-22] MEDS: CENTRAL LINE FLUSH 10 ML IV PUSH (05:35)
[2022-10-22 06:17] LABS: Albumin Level 3.1 g/dL (3.5-5.1); Anion Gap 5 mmol/L (8-16); Blood Urea Nitrogen 13 mg/dL (9-20); Calcium 8.3 mg/dL (8.4-10.2); Carbon Dioxide 33 mmol/L (22-30); Chloride 88 mmol/L (98-107); Estimated CRCL calculation 83 ml/min; Estimated Glomerular Filt Rate > 60; Glucose 99 mg/dL (65-110); Phosphorus 4.3 mg/dL (2.5-4.5); Potassium 3.3 mmol/L (3.4-5.0); Sodium 126 mmol/L (137-145)
--- NOTE | 2022-10-22 08:21 | P.PNIM_ITS ---
Progress Note: A&P Assessment and Plan (1) Hyponatremia: Code(s): E87.1 - Hypo-osmolality and hyponatremia Status: Acute Assessment and Plan: * Improving * does have a history of this in October 2021 * this was secondary oxybutynin use and excess free water intake - resolved with fluid restriction and normal saline IVFs * etiology not clear * denies excessive free water intake * no culprit medicines (SSRI, thiazide diuretics, PPIs, narcotics...etc) * however, does have BPH and smoking history/ COPD by pCXR (both of which can predispose to low sodium levels) * evaluation to date: * urine electrolytes prerenal (but no improvement in sodium with normal saline IVFs) * TSH and cortisol okay * SPEP negative for paraproteinemia; UPEP not done(?) - will reorder * urine osmolality 799, serum osmolality 248 * 3% saline given several times * on fluid restriction * Salt tabs + low dose lasix * follow repeat sodium levels * Nephrology on board. Appreciate their input (2) Afib: Qualifiers: Atrial fibrillation type: paroxysmal Qualified Code(s): I48.0 - Paroxysmal atrial fibrillation Code(s): I48.91 - Unspecified atrial fibrillation Status: Chronic Assessment and Plan: * changed atenolol to metoprolol b.i.d. for 24 hour coverage * anticoagulation resumed (3) Acute UTI: Code(s): N39.0 - Urinary tract infection, site not specified Status: Acute Assessment and Plan: * urine culture negative * off antibiotics (4) Hematuria: Qualifiers: Hematuria type: unspecified type Qualified Code(s): R31.9 - Hematuria, unspecified Code(s): R31.9 - Hematuria, unspecified Status: Acute Assessment and Plan: * resolved (5) HLD (hyperlipidemia): Qualifiers: Hyperlipidemia type: unspecified Qualified Code(s): E78.5 - Hyperlipidemia, unspecified Code(s): E78.5 - Hyperlipidemia, unspecified Status: Acute (6) COPD (chronic obstructive pulmonary disease): Qualifiers: COPD type: unspecified COPD Qualified Code(s): J44.9 - Chronic obstructive pulmonary disease, unspecified Code(s): J44.9 - Chronic obstructive pulmonary disease, unspecified Status: Acute Assessment and Plan: Continue nebulization Subjective Date/time seen: 10/22/22 08:21 Interval history: No overnight events noted. No chest pain or shortness of breath. No nausea, vomiting or diarrhea. No fevers or chills. Review of Systems Review of Systems: 12 point review of systems was assessed and was negative except as noted in the HPI Exam Narrative: General: No acute distress, alert and oriented per baseline HEENT: Atraumatic, normocephalic, mucous membranes moist CV: Regular rate and rhythm, S1, S2 Lungs: Clear to auscultation bilaterally, no rales or crackles noted, no wheezes, good air entry Abdomen: Soft, nontender, nondistended Extremities: Normal to inspection Skin: No rashes noted, no lesions or wounds seen Psych: Euthymic, normal affect Objective Data Vital Signs Vital Signs: Vital Signs - 24 hr 10/21/22 08:43 10/21/22 10:00 10/21/22 12:00 Temperature 98.9 F Pulse Rate 113 H 115 H 110 H Respiratory Rate 18 Blood Pressure 94/58 L Pulse
--- NOTE | 2022-10-22 08:21 | PM.IMPN ---
Progress Note: A&P Assessment and Plan (1) Hyponatremia: Code(s): E87.1 - Hypo-osmolality and hyponatremia Status: Acute Assessment and Plan: Improving does have a history of this in October 2021 this was secondary oxybutynin use and excess free water intake - resolved with fluid restriction and normal saline IVFs etiology not clear denies excessive free water intake no culprit medicines (SSRI, thiazide diuretics, PPIs, narcotics...etc) however, does have BPH and smoking history/ COPD by pCXR (both of which can predispose to low sodium levels) evaluation to date: urine electrolytes prerenal (but no improvement in sodium with normal saline IVFs) TSH and cortisol okay SPEP negative for paraproteinemia; UPEP not done(?) - will reorder urine osmolality 799, serum osmolality 248 3% saline given several times on fluid restriction Salt tabs + low dose lasix follow repeat sodium levels Nephrology on board. Appreciate their input (2) Afib: Qualifiers: Atrial fibrillation type: paroxysmal Qualified Code(s): I48.0 - Paroxysmal atrial fibrillation Code(s): I48.91 - Unspecified atrial fibrillation Status: Chronic Assessment and Plan: changed atenolol to metoprolol b.i.d. for 24 hour coverage anticoagulation resumed (3) Acute UTI: Code(s): N39.0 - Urinary tract infection, site not specified Status: Acute Assessment and Plan: urine culture negative off antibiotics (4) Hematuria: Qualifiers: Hematuria type: unspecified type Qualified Code(s): R31.9 - Hematuria, unspecified Code(s): R31.9 - Hematuria, unspecified Status: Acute Assessment and Plan: resolved (5) HLD (hyperlipidemia): Qualifiers: Hyperlipidemia type: unspecified Qualified Code(s): E78.5 - Hyperlipidemia, unspecified Code(s): E78.5 - Hyperlipidemia, unspecified Status: Acute (6) COPD (chronic obstructive pulmonary disease): Qualifiers: COPD type: unspecified COPD Qualified Code(s): J44.9 - Chronic obstructive pulmonary disease, unspecified Code(s): J44.9 - Chronic obstructive pulmonary disease, unspecified Status: Acute Assessment and Plan: Continue nebulization Subjective Date/time seen: 10/22/22 08:21 Interval history: No overnight events noted. No chest pain or shortness of breath. No nausea, vomiting or diarrhea. No fevers or chills. Review of Systems Review of Systems: 12 point review of systems was assessed and was negative except as noted in the HPI Exam Narrative: General: No acute distress, alert and oriented per baseline HEENT: Atraumatic, normocephalic, mucous membranes moist CV: Regular rate and rhythm, S1, S2 Lungs: Clear to auscultation bilaterally, no rales or crackles noted, no wheezes, good air entry Abdomen: Soft, nontender, nondistended Extremities: Normal to inspection Skin: No rashes noted, no lesions or wounds seen Psych: Euthymic, normal affect Objective Data Vital Signs Vital Signs: Vital Signs - 24 hr 10/21/22 08:43 10/21/22 10:00 10/21/22 12:00 Temperature 98.9 F Pulse Rate 113 H 115 H 110 H Respiratory Rate 18 Blood Pressure 94/58 L Pulse Oximetry 96 Oxygen Delivery Fraction of Inspired Oxygen 10/21/22 12:00 10/21/22 12:00 10/21/22 13:16 Temperature Pulse Rate 103 H 96 Respiratory Rate 20 Blood Pressure Pulse Oximetry Oxygen Delivery Room Air Fraction of Inspired Oxygen 10/21/22 13:31 10/21/22 14:00 10/21/22 16:00 Temperature Pulse Rate 102 H 104 H 97 Respiratory Rate 20 Blood Pressure Pulse Oximetry Oxygen Delivery Fraction of Inspired Oxygen 10/21/22 16:00 10/21/22 16:00 10/21/22 20:06 Temperature 98.9 F 97.5 F L Pulse Rate 100 102 H Respiratory Rate 18 20 Blood Pressure 104/70 110/68 Pulse Oximetry 96 97 Oxygen De
[2022-10-22 08:32] LABS: Basophils Percent Auto 0.3 % (0.2-1.2); Eosinophils Absolute Auto 0.1 K/mm3 (0-0.3); Eosinophils Percent Auto 0.8 % (0-4.4); Hematocrit 37.4 % (42.0-52.0); Hemoglobin 12.6 g/dL (14.0-18.0); Immature Granulocyte Absolute 0.05 K/mm3 (0.00-0.031); Immature Granulocyte Percent A 0.6 % (0-0.5); Lymphocytes Absolute Auto 1.09 K/mm3 (0.9-3.2); Lymphocytes Percent Auto 13.8 % (18.3-44.2); Mean Corpuscular HGB Conc 33.7 g/dl (32-36); Mean Corpuscular Hemoglobin 31.4 pg (26-34); Mean Corpuscular Volume 93.3 fl (80-100); Monocytes Absolute Auto 0.5 K/mm3 (0.1-0.6); Monocytes Percent Auto 5.8 % (2.6-8.5); Neutrophils Absolute Auto 6.2 K/mm3 (1.3-6.7); Neutrophils Percent Auto 78.7 % (45.5-73.1); Platelet Count Result 135 k/mm3 (150-375); Red Blood Count 4.01 M/mm3 (4.6-6.20); Red Cell Distribution Width 14.1 % (11.5-14.5); White Blood Count 7.9 K/mm3 (4.5-10.0)
[2022-10-22 08:38] LABS: Alanine Aminotransferase 31 U/L (6-50); Albumin Level 3.1 g/dL (3.5-5.1); Alkaline Phosphatase 65 U/L (38-126); Anion Gap 3 mmol/L (8-16); Aspartate Amino Transferase 44 U/L (17-59); Bilirubin,Total 1.9 mg/dL (0.2-1.3); Blood Urea Nitrogen 14 mg/dL (9-20); Calcium 8.3 mg/dL (8.4-10.2); Carbon Dioxide 36 mmol/L (22-30); Chloride 89 mmol/L (98-107); Estimated CRCL calculation 83 ml/min; Estimated Glomerular Filt Rate > 60; Glucose 100 mg/dL (65-110); Potassium 3.4 mmol/L (3.4-5.0); Sodium 128 mmol/L (137-145)
--- NOTE | 2022-10-22 08:57 | PM.DS ---
DS: Admitting Diagnosis Discharge Date 10/22/22 Admitting Diagnosis Hyponatremia DS: Discharge Diagnosis Discharge Diagnosis (1) Hyponatremia: Code(s): E87.1 - Hypo-osmolality and hyponatremia Status: Acute (2) Afib: Qualifiers: Atrial fibrillation type: paroxysmal Qualified Code(s): I48.0 - Paroxysmal atrial fibrillation Code(s): I48.91 - Unspecified atrial fibrillation Status: Chronic (3) Acute UTI: Code(s): N39.0 - Urinary tract infection, site not specified Status: Acute (4) Hematuria: Qualifiers: Hematuria type: unspecified type Qualified Code(s): R31.9 - Hematuria, unspecified Code(s): R31.9 - Hematuria, unspecified Status: Acute (5) HLD (hyperlipidemia): Qualifiers: Hyperlipidemia type: unspecified Qualified Code(s): E78.5 - Hyperlipidemia, unspecified Code(s): E78.5 - Hyperlipidemia, unspecified Status: Acute (6) COPD (chronic obstructive pulmonary disease): Qualifiers: COPD type: unspecified COPD Qualified Code(s): J44.9 - Chronic obstructive pulmonary disease, unspecified Code(s): J44.9 - Chronic obstructive pulmonary disease, unspecified Status: Acute DS: Summary Hospital Course Hospital Course: 69-year-old male with history of AFib, colon cancer, heart disease, hypertension other comorbidities presenting with hematuria, shortness of breath and found to recurrent hyponatremia. Nephrology consulted for severe hyponatremia, symptoms slowly resolved with 3% saline, then fluid restriction, salt tabs. Sodium stabilized at 127-128 and Nephrology was okay with discharge and follow-up outpatient. Unsure if this is an infection or just hematuria from Eliquis with comorbid hyponatremia Started on Rocephin 10/11, switched to vancomycin 10/12 due to prior culture Prior culture from earlier this month showed stenotrophomonas and coag-negative staph sensitive to Bactrim, Macrobid and vancomycin, will discontinue Rocephin and initiate vancomycin Culture negative, d/c abx, repeat urine culture ordered 10/21, pending, follow-up with Urology for management. Patient did have some wheezing from possible COPD. Nebs, refer to pulm outpatient for PFTs Prednisone 40 mg daily x 5 days, end date Oct 16 Eliquis needed to be held due to hematuria, Cardiology was consulted. Patient was having AFib with RVR. They recommended continuing current management, restarted Eliquis when able, and considering TURKISH device if unable to tolerate anticoagulation. Etiology of RVR activity thought to be secondary to hyponatremia and hypomagnesemia. Please see above and med rec for details. Time Spent with Patient Time attestation: Total time spent providing and/or coordinating discharge services: DS: Data Data Completed and Pending Labs on day of discharge: Labs from last 24 hours 10/22/22 10/22/22 10/21/22 05:34 05:33 14:19 WBC 7.9 RBC 4.01 L Hgb 12.6 L Hct 37.4 L MCV 93.3 MCH 31.4 MCHC 33.7 RDW 14.1 Plt Count 135 L MPV 9.0 Immature Gran % (Auto) 0.6 H Neut % (Auto) 78.7 H Lymph % (Auto) 13.8 L [place] % (Auto) 5.8 Eos % (Auto) 0.8 Baso % (Auto) 0.3 Lymph # (Auto) 1.09 [place] # (Auto) 0.5 Eos # (Auto) 0.1 Baso # (Auto) 0.0 Abs Immat Gran (auto) 0.05 H Absolute Neuts (auto) 6.2 Absolute Nucleated RBC 0.0 Nucleated RBC % 0.0 Sodium 126 L 128 L Potassium 3.3 L 3.4 Chloride 88 L 89 L Carbon Dioxide 33 H 36 H Anion Gap 5 L 3 L BUN 13 14 Creatinine 0.70 0.70 Estim Creat Clear Calc 83 83 Estimated GFR > 60 > 60 Glucose 99 100 Calcium 8.3 L 8.3 L Phosphorus 4.3 Total Bilirubin 1.9 H AST 44 ALT 31 Alkaline Phosphatase 65 Total Protein 6.0 L Albumin 3.1 L 3.1 L Urine Color Angy Urine Appearance Cloudy H Urine pH 7.5 Ur Specific [place] 1.020 Urine Protein 1+ H U
[2022-10-22] MEDS: POTASSIUM CHLORIDE 20 MEQ ER TABLET 40 MEQ PO (09:34)
[2022-10-22] MEDS: CHOLECALCIFEROL 1,000 UNITS TABLET 2000 UNITS PO (09:35)
[2022-10-22] MEDS: TAMSULOSIN HCL 0.4 MG CAPSULE BY MOUTH (09:35)
[2022-10-22] MEDS: FINASTERIDE 5 MG TABLET PO (09:35)
[2022-10-22] MEDS: METOPROLOL TARTRATE 50 MG TAB PO (09:35)
[2022-10-22] MEDS: DEMECLOCYCLINE HCL 150 MG TABLET PO ×2 (09:35→13:44)
[2022-10-22] MEDS: SIMVASTATIN 20 MG TABLET PO (09:35)
[2022-10-22] MEDS: PANTOPRAZOLE 40 MG TABLET PO (09:35)
[2022-10-22] MEDS: APIXABAN 5 MG TABLET PO (09:35)
[2022-10-22] MEDS: SODIUM CHLORIDE 1 GM TABLET 2.5 GM PO (09:36)
[2022-10-22] MEDS: FUROSEMIDE 20 MG TABLET PO ×2 (09:36→13:44)
[2022-10-22] MEDS: SODIUM CHLORIDE 500 MG TABLET PO (13:44)
[2022-10-22] MEDS: SODIUM CHLORIDE 1 GM TABLET 2 GM PO (13:44)
--- NOTE | 2022-10-22 16:13 | WPDUROPN2 ---
Progress Note: A&P Assessment and Plan (1) Gross hematuria: Code(s): R31.0 - Gross hematuria Status: Acute Assessment and Plan: Resolved, ok to continue to irrigate at home daily PRN. (2) BPH (benign prostatic hyperplasia): Qualifiers: Lower urinary tract symptom detail: unspecified Code(s): N40.0 - Benign prostatic hyperplasia without lower urinary tract symptoms Status: Chronic Assessment and Plan: Patient ok to be discharged home with ewing at anytime per Urology. CT normal, urine culture negative, repeat culture pending. Patient to be scheduled for outpatient cystoscopy for gross hematuria and evaluation of BPH d/t failing a voiding trial in the hospital. Subjective Subjective Date/Time Seen: 10/22/22 16:13 Interval history: Patient doing well, urine much more clear today after q shift irrigations. Urine culture still pending. Patient sitting up in chair and doing well. Review of Systems Cardiovascular: Cardiovascular: Reports no additional cardiovascular complaints Respiratory: Respiratory: Reports no additional respiratory complaints Gastrointestinal: Gastrointestinal: Denies abdominal pain, Denies nausea and Denies vomiting Genitourinary: Genitourinary: Denies hematuria, Denies flank pain and Reports urinary hesitancy Exam Const: General: cooperative and comfortable Resp: Effort & Inspection: normal respiratory effort Cardio: Rate: tachycardic GI: GI Palp: Yes Soft to palpation and No Tenderness to palpation present (GI) : General: Yes no CVA tenderness Urinary Catheter: Urinary Catheter: patent and draining and urine clear Extrem: Right lower extremity: no edema Left lower extremity: no edema Objective Data Vital Signs Vital Signs: Vital Signs - 24 hr 10/21/22 20:06 10/21/22 20:18 10/21/22 20:23 Temperature 97.5 F L Pulse Rate 102 H 102 H 102 H Respiratory Rate 20 20 Blood Pressure 110/68 Pulse Oximetry 97 Oxygen Delivery Fraction of Inspired Oxygen 10/21/22 20:27 10/21/22 20:30 10/21/22 22:53 Temperature 97.5 F L Pulse Rate 102 H 98 92 Respiratory Rate 18 20 20 Blood Pressure 114/78 Pulse Oximetry 97 98 Oxygen Delivery Room Air Fraction of Inspired Oxygen 10/21/22 20:00 10/21/22 20:00 10/21/22 22:00 Temperature Pulse Rate 94 94 90 Respiratory Rate 20 Blood Pressure Pulse Oximetry 98 Oxygen Delivery Room Air Fraction of Inspired Oxygen 21 10/21/22 23:31 10/21/22 23:31 10/22/22 01:57 Temperature Pulse Rate 86 88 91 Respiratory Rate 20 20 Blood Pressure Pulse Oximetry 98 Oxygen Delivery Room Air Fraction of Inspired Oxygen 21 10/22/22 02:05 10/22/22 03:24 10/22/22 02:00 Temperature 97.5 F L Pulse Rate 86 94 96 Respiratory Rate 20 18 Blood Pressure 113/62 Pulse Oximetry 96 Oxygen Delivery Fraction of Inspired Oxygen 10/22/22 04:00 10/22/22 04:00 10/22/22 06:00 Temperature Pulse Rate 92 92 94 Respiratory Rate 18 Blood Pressure Pulse Oximetry 96 Oxygen Delivery Room Air Fraction of Inspired Oxygen 21 10/22/22 07:38 10/22/22 07:38 10/22/22 07:55 Temperature Pulse Rate 101 H 105 H Respiratory Rate 20 20 Blood Pressure Pulse Oximetry 98 Oxygen Delivery Room Air Fraction of Inspired Oxygen 10/22/22 08:00 10/22/22 09:35 10/22/22 08:00 Temperature 97.1 F L Pulse Rate 108 H 126 H Respiratory Rate 14 Blood Pressure 125/69 Pulse Oximetry 97 Oxygen Delivery Room Air Fraction of Inspired Oxygen 10/22/22 08:00 10/22/22 10:00 10/22/22 11:47 Temperature 96.5 F L Pulse Rate 107 H 105 H 100 Respiratory Rate 18 Blood Pressure 109/61 Pulse Oximetry 100 Oxygen Delivery Fraction of Inspired Oxygen 10/22/22 13:21 10/22/22 13:35 10/22/22 12:00 Temperature Pulse Rate 100 96 117 H Respiratory Rate 20 20 Blood Pressure Pulse Oximetry Oxygen Delivery
[2022-10-22 23:37] LABS: Creatinine, Random Urine 45 mg/dL (20-320); Total Protein/Creatinine Ratio 311 mg/g creat (25-148)
== END 2022-10-22 14:50 | disposition home or self-care (01) | DRG 641 ==
LOC: ANHED 03:21 → ANHIMU 04:03
PROVIDERS: Hospitalist; Internal Medicine; Internal Medicine Nephrology; Nurse Practitioner Adult Health; Admitting Provider Internal Medicine; Emergency Provider Emergency Medicine; PCP Emergency Medicine; Visit Provider Student in an Organized Health Care Education/Training Program
DX: E87.1 Hypo-osmolality and hyponatremia (principal); N39.0 Urinary tract infection, site not specified; R31.0 Gross hematuria; I48.0 Paroxysmal atrial fibrillation; I25.10 Atherosclerotic heart disease of native coronary artery without angina pectoris; E78.2 Mixed hyperlipidemia; E53.8 Deficiency of other specified B group vitamins; E55.9 Vitamin D deficiency, unspecified; I10 Essential (primary) hypertension; J44.9 Chronic obstructive pulmonary disease, unspecified; K21.9 Gastro-esophageal reflux disease without esophagitis; K59.00 Constipation, unspecified; N40.0 Benign prostatic hyperplasia without lower urinary tract symptoms; R06.02 Shortness of breath; Z95.5 Presence of coronary angioplasty implant and graft; Z87.891 Personal history of nicotine dependence; Z85.038 Personal history of other malignant neoplasm of large intestine; Z79.01 Long term (current) use of anticoagulants
CPT/HCPCS: 36415; 36569; 70450; 71045; 71046; 80048; 80053; 80069; 81001; 82436; 82465; 82533; 82570; 83735; 83880; 83883; 83930; 83935; 84155; 84156; 84165; 84166; 84295; 84300; 84443; 84478; 84484; 84540; 85025; 85610; 85730; 86334; 86335; 87086; 93005; 94640; 96361; 96365; 97110; 97161; 97165; 97530; 97535; 99285; A9270; C1751; G0378; J0696; J2405; J3370; J3475; J7030; J7131; J7512

== ENCOUNTER 2022-10-28 11:33 | Outpatient (CLI) | payer MEDICARE, SELFPAY ==
[2022-10-28 12:41] LABS: Albumin Level 3.7 g/dL (3.5-5.1); Anion Gap 5 mmol/L (8-16); Blood Urea Nitrogen 27 mg/dL (9-20); Calcium 9.1 mg/dL (8.4-10.2); Carbon Dioxide 36 mmol/L (22-30); Chloride 102 mmol/L (98-107); Estimated Glomerular Filt Rate > 60; Glucose 100 mg/dL (65-110); Phosphorus 4.5 mg/dL (2.5-4.5); Potassium 3.4 mmol/L (3.4-5.0); Sodium 143 mmol/L (137-145)
== END 2022-10-28 11:34 | disposition home or self-care (01) ==
PROVIDERS: PCP Emergency Medicine; Visit Provider Internal Medicine Nephrology
DX: E87.1 Hypo-osmolality and hyponatremia (principal)
CPT/HCPCS: 36415; 80069

== ENCOUNTER 2022-11-23 10:44 | Outpatient (CLI) | payer MEDICARE, SELFPAY ==
[2022-11-23 13:08] LABS: Albumin Level 3.2 g/dL (3.5-5.1); Anion Gap 8 mmol/L (8-16); Blood Urea Nitrogen 31 mg/dL (9-20); Calcium 8.5 mg/dL (8.4-10.2); Carbon Dioxide 31 mmol/L (22-30); Chloride 107 mmol/L (98-107); Estimated Glomerular Filt Rate 59; Glucose 110 mg/dL (65-110); Phosphorus 4.1 mg/dL (2.5-4.5); Potassium 2.8 mmol/L (3.4-5.0); Sodium 146 mmol/L (137-145)
== END 2022-11-23 10:45 | disposition home or self-care (01) ==
LOC: ANHLAB 10:45
PROVIDERS: PCP Emergency Medicine; Visit Provider Internal Medicine Nephrology
DX: E87.1 Hypo-osmolality and hyponatremia (principal)
CPT/HCPCS: 36415; 80069

== ENCOUNTER 2022-12-03 10:29 | Outpatient (CLI) | payer MEDICARE, SELFPAY ==
[2022-12-03 11:07] LABS: Potassium 4.4 mmol/L (3.4-5.0)
[2022-12-03 11:11] LABS: INR 1.4; Prothrombin Time 17.6 Seconds (11.1-14.7)
== END 2022-12-03 10:30 | disposition home or self-care (01) ==
LOC: ANHSURGERY 10:34
PROVIDERS: Anesthesiology; PCP Emergency Medicine; Visit Provider Urology
DX: Z01.818 Encounter for other preprocedural examination (principal); E87.6 Hypokalemia; R31.0 Gross hematuria
CPT/HCPCS: 36415; 84132; 85610; 85730; 87086; 87088

== ENCOUNTER 2022-12-09 13:58 | Observation (INO) | payer MEDICARE, SELFPAY ==
--- NOTE | 2022-11-30 11:59 | PC.NURSE ---
Report to the Outpatient Waiting Room, entrance under the green pavilion located off [facility], at time __0800 on date __12/08/22 . Planned Procedure Time: __1000 . Time changes happen often and if your time is changed the preop area will call you the afternoon before. - You and your visitor will be asked to self-screen and do not enter if you have any COVID symptoms. - A mask is optional within the hospital at this time. Patients may have clear liquids (water, carbonated beverages, clear teas, apple juice) until 3 hours prior to surgery with a maximum of 20 ounces. - No food from midnight until time of surgery - Infants may have breast milk until 4 hours before surgery, infant formula 6 hours prior to surgery. - Children will be allowed to drink immediately following surgery. If applicable, please bring a bottle or sippy cup to assist with drinking. Juice, water, soda, and popsicles are readily available. For infants on formula, please bring formula the day of surgery. Pacifiers are allowed. Take the following medications with a SIP of water the morning of surgery: __ATENOLOL, DO NOT STOP ANY OF YOUR OTHER PRESCRIPTION MEDICATIONS PRIOR TO SURGERY ?EXCEPT THE FOLLOWING Medications to discontinue per physician ___THEO PER DR VICENTE . ALL VITAMINS 3 DAYS PRE OP.LAST DOSE 12/04/22 Please no make-up, nail occitan, hairspray, perfume, deodorant, or body powder the day of surgery. No jewelry (including any body piercings) or valuables the day of surgery, leave them at home. Please take a shower or bath the night before, or the morning of, surgery with an antibacterial soap. Wear comfortable, loose fitting clothing. Children are encouraged to wear pajamas. - Jewelry must be removed prior to entering the operating room. Rings and piercings that are not removed may be cut off. - The hospital will not accept responsibility for valuables. - Please leave all valuables, including medications, at home the day of surgery. If you are going home after surgery, a licensed tractor trailer moving van driver must drive you home. - NO public transportation without another adult if you receive anesthesia. - We recommend that an adult stay with you for 24 hours following discharge. - We also recommend that you do not drive, make important decision, drink alcoholic beverages, or take any drugs that were not prescribed by your health care provider for at least 24 hours after your discharge time. For Pediatric surgeries, we recommend two adults accompany the child home. Follow any additional instructions given to you from your surgeon. If you or anyone in your household have experienced Covid symptoms in the past week, please notify your surgeon or the nurse liaison at the phone number below for possible testing. Telephone instructions given to __PATIENT and asked if any additional questions and then verbalized understanding. Patient advised to call surgeon office or pre surgery nurse liaison [phone] if any additional questions.
[2022-11-30 12:26] VITALS: BMI 26.3
[2022-12-08] VITALS (14 sets, daily range): BP systolic 103–137; BP diastolic 73–95; PULSE 86–119; RESP 16–20; TEMP 35.6–37; O2SAT 95–100; BMI 28.9
--- NOTE | 2022-12-08 08:19 | WPDHPUPDATE1 ---
History and Physical Update Update Date/Time: 12/08/22 08:19 History and Physical has been reviewed, including an updated exam of the patient. There are NO changes in the patient's condition. Risks, benefits, and alternatives have been discussed and questions answered. Patient agrees to proceed with procedure.
[2022-12-08] MEDS: LACTATED RINGERS 1,000 ML 30 ML IV CONT (08:55)
--- NOTE | 2022-12-08 08:57 | WPDANESEPPF ---
Anes - Initial Pre Proc Eval Procedure: Operation Date: 12/08/22 10:00 Proposed Procedures p Cystoscopy, Transurethral Resection of Bladder Tumor - Veto Nielson MD s Transurethral Resection of Prostate - Veto Nielson MD Date/Time: 12/08/22 08:57 Surgeon: Veto Nielson MD Pre Op Diagnosis: gross hematuria, bph, retention of urine Patient Data Age: 77 Gender: M Height: 1.73 m Weight: 78.5 kg Allergies Allergy/AdvReac Type Severity Reaction Status Date / Time ibuprofen Allergy Unknown Gastrointestinal Verified 11/30/22 11:47 Upset lisinopril AdvReac Severe tongue and Verified 11/30/22 11:47 lip swelling Home Medications Medication Instructions Recorded Confirmed Type flaxseed oil 1,000 mg capsule See Rx Instructions .Route .COMPLEX 04/23/19 11/30/22 History cholecalciferol (vitamin D3) 50 2,000 unit PO DAILY 01/22/20 11/30/22 History mcg (2,000 unit) capsule cyanocobalamin (vitamin B-12) 250 See Rx Instructions .Route .COMPLEX 01/22/20 11/30/22 History mcg tablet (Vitamin B-12) apixaban 5 mg tablet (Eliquis) See Rx Instructions .Route 12/25/21 11/30/22 Rx .COMPLEX #60 tabs tamsulosin 0.4 mg capsule See Rx Instructions .Route 09/14/22 11/30/22 Rx .COMPLEX #90 caps simvastatin 20 mg tablet See Rx Instructions .Route 10/29/22 11/30/22 Rx .COMPLEX #90 tabs atenolol 50 mg tablet 50 mg PO DAILY 11/18/22 11/30/22 History omeprazole magnesium 20 mg 20 mg PO DAILY 11/30/22 11/30/22 History tablet,delayed release (Prilosec OTC) Patient hx anesthesia problems: none Family hx anesthesia problems: none Results Review: All pre-operative results and documents have been reviewed as part of the pre-operative evaluation. [facility] Past Medical History Medical History Abnormal CT scan, chest Abnormal EKG Adenomatous colon polyp Afib Atherosclerotic heart disease of [place] coronary artery with angina pectoris B12 deficiency Bowel habit changes Chronic atrial fibrillation Colon cancer screening Enlarged prostate without lower urinary tract symptoms (luts) Essential (primary) hypertension Gastro-esophageal reflux disease without esophagitis HTN (hypertension) Hyperglycemia Incontinence of feces Lung nodule Mixed hyperlipidemia Non-rheumatic mitral regurgitation Other hyperlipidemia Overweight (04/22/15) Positive colorectal cancer screening using Cologuard test Smoking Tobacco abuse Vitamin D deficiency Surgical History Surgical History H/O heart artery stent History of aortic aneurysm repair History of cardiac cath History of endovascular stent graft for abdominal aortic aneurysm History of transurethral resection of prostate Family History Family History Father Acute myocardial infarction Social History Social History Social History: the patient lives with his he has 3 children. His is the durable power associate attorney for healthcare. The patient retired from [employer] still. He denies any alcohol marijuana or illicit drugs. Code status full code Smoking packs per day: 1.5 Smoking cigarettes per day: 30.0 Years smoked: 54 Smoking pack-years: 81.00 Smoking status: Former smoker Tobacco type: cigarettes Second hand tobacco smoke exposure: Yes Smoking end date: 03/15/18 Additional smoking assessment comments: quit in 2019 Alcohol intake: former Substance use: never Substance use type: does not use Lack of Transportation: No Lack of Food: Never True Current Housing: I Have Housing Concerned About Future Housing: No Difficulty Paying Gas/Electric Bills: No Difficulty Paying for Meds: No Currently Unemployed: No Education: High School Diploma/GED Difficulty w/ C
[2022-12-08] MEDS: ceFAZolin 2 GM/D5W 50 ML 2 GM/50 ML BAG IVPB (10:18)
[2022-12-08] MEDS: LIDOCAINE HCL 2% GEL UROJET 10 ML PKG MUCOUS MEM (10:51)
--- NOTE | 2022-12-08 11:31 | W.PM.PROC2 ---
Procedure Note - Detailed Date of Procedure 12/08/22 Pre-op Diagnosis gross hematuria, bph, retention of urine Post-op Diagnosis Same Procedure Performed Cysto with transurethral resection of prostate and bladder neck Surgeon Veto Nielson MD Anesthesia General Description of Procedure Patient is taken to the operative suite correctly identified. Once anesthesia was obtained was placed in dorsal lithotomy position prepped draped usual sterile fashion. Twenty-four Burkin[place] sheath was inserted the bladder. He does have residual tissue at the apex and some at the bladder neck with some edema there. I do not see any other tumors in the bladder. We then resected from the bladder neck to the verumontanum again. Excess prostate tissue was retrieved and sent for analysis. The area was then fulgurated using a ball electrode. 2% viscous lidocaine was inserted urethra. Twenty-four Burkin[place] [address] was [address] he was taken recovery stable condition. He will be admitted for CBI. This completes dictation on this patient. Please send a copy of op note to my office Estimated Blood Loss 100 Drains Yes Packing No Pathology Yes Complications No immediate complications Condition Stable Disposition PACU
--- NOTE | 2022-12-08 13:00 | ADMGEN ---
This patient, Marcos Echeverria, was admitted to [facility] Surg Room 301-01. Patient/family oriented to hospital policies and general routines including ID bracelet, bed and alarms, visiting hours, pain management, procedures, bathroom and other care routines, personal items, smoking policy, room service/diet, and visiting hours. Information on how to activate the Rapid Response Team has been discussed. Patient/Family are encouraged to report perceived risks to care and to ask questions if they do not understand what they are told or what they should do.
[2022-12-08] MEDS: ONDANSETRON INJ 4 MG/2 ML VIAL IV PUSH (13:15)
[2022-12-08] MEDS: DOCUSATE SODIUM 100 MG CAPSULE PO (17:22)
[2022-12-08] MEDS: ceFAZolin 1 GM/NS 50 ML 1 GM/50 ML BAG IVPB (17:24)
--- NOTE | 2022-12-08 18:28 | PC.NURSE ---
Upon admission to this floor, pt and family stated that pt had gained 17 pounds in less than 2 weeks. Pt had recently been d/c'ed from IMU with desmopressin, lasix, and NaCl tabs r/t [facility]AD[facility] admission. Pt had seen cardiology in last two weeks, where they ordered the d/c of the previously mentioned medications. Since then, pt has gone from 173lbs in cardio office to 190lbs during admission. Call placed to [facility] office to notify him of significant finding and ask if he wanted a hospitalist/cardio consulted; Ophelia stated she would inform him and call back if any concerns. Pt has been seeing yohana Gee and Jose L cardio. prize jacker made and night RN will be made aware.
[2022-12-09] VITALS (7 sets, daily range): BP systolic 106–115; BP diastolic 63–75; PULSE 88–102; RESP 14–18; TEMP 35.8–36.4; O2SAT 96–98
[2022-12-09] MEDS: ceFAZolin 1 GM/NS 50 ML 1 GM/50 ML BAG IVPB (03:30)
[2022-12-09 06:16] LABS: Hematocrit 39.7 % (42.0-52.0); Hemoglobin 12.8 g/dL (14.0-18.0)
[2022-12-09 07:10] LABS: Anion Gap 3 mmol/L (8-16); Blood Urea Nitrogen 19 mg/dL (9-20); Calcium 8.7 mg/dL (8.4-10.2); Carbon Dioxide 31 mmol/L (22-30); Chloride 102 mmol/L (98-107); Estimated CRCL calculation 52 ml/min; Estimated Glomerular Filt Rate > 60; Glucose 108 mg/dL (65-110); Potassium 6.1 mmol/L (3.4-5.0); Sodium 136 mmol/L (137-145)
--- NOTE | 2022-12-09 09:07 | ECG_ITS ---
Measurements Intervals [place] Rate: 117 P: AL: 0 QRS: -50 QRSD: 92 T: 120 QT: 307 QTc: 429 Interpretive Statements ATRIAL FIBRILLATION WITH RAPID VENTRICULAR RESPONSE VENTRICULAR PREMATURE COMPLEX LEFT ANTERIOR FASCICULAR BLOCK CANNOT RULE OUT SEPTAL INFARCT, AGE INDETERMINATE BORDERLINE ST-T WAVE ABNORMALITY- HIGH LATERAL LEADS ABNORMAL ECG COMPARED TO ECG 10/11/2022 00:50:25 HEART RATE HAS INCREASED Electronically Signed On 12-09-2022 11:13:34 CDT by Yunier Domingo D.O.
[2022-12-09] MEDS: PANTOPRAZOLE 40 MG TABLET PO (09:33)
[2022-12-09] MEDS: TAMSULOSIN HCL 0.4 MG CAPSULE PO (09:33)
[2022-12-09] MEDS: atenoloL 50 MG TABLET PO (09:33)
[2022-12-09] MEDS: SIMVASTATIN 20 MG TABLET BY MOUTH (09:33)
[2022-12-09] MEDS: DOCUSATE SODIUM 100 MG CAPSULE PO ×2 (09:34→17:06)
[2022-12-09] MEDS: CEPHALEXIN 500 MG CAPSULE PO ×4 (09:34→20:55)
[2022-12-09 10:06] LABS: Potassium 5.4 mmol/L (3.4-5.0)
--- NOTE | 2022-12-09 10:34 | WPDANESPN ---
Anes - Prog Note Post-Op Date/Time: 12/09/22 10:34 Cardiovascular status: normal Respiratory status: normal Airway patency: baseline Mental status: baseline Post-Op hydration status: normal Vital Signs: Last Vital Signs Temp 36.2 C L 12/09/22 08:00 Pulse 92 12/09/22 09:33 Resp 16 12/09/22 08:00 BP 112/75 12/09/22 08:00 Pulse Ox 98 12/09/22 08:00 O2 Del Method Room Air 12/08/22 20:00 O2 Flow Rate 8 12/08/22 11:35 Pain Score (VAS): 0/10 I/O: Intake & Output 12/08/22 12/09/22 12/09/22 23:59 07:59 15:59 Intake Total 290 500 480 Output Total 1750 4000 Balance -1460 -3500 480 Laboratory Tests 12/09/22 05:35 12/09/22 09:29 12/09/22 12/09/22 05:35 09:29 Hgb 12.8 L Hct 39.7 L Sodium 136 L Potassium 6.1 H* 5.4 H Chloride 102 Carbon Dioxide 31 H Anion Gap 3 L BUN 19 D Creatinine 1.00 Estim Creat Clear Calc 52 Estimated GFR > 60 Glucose 108 Calcium 8.7 Post-procedural complaints: none Patient Feedback: Patient satisfied with anesthetic care. Other Findings: patient reports emergence delirium that has resolved
--- NOTE | 2022-12-09 11:32 | WPDUROPN2 ---
Progress Note: A&P Assessment and Plan (1) Gross hematuria: Code(s): R31.0 - Gross hematuria Status: Acute Assessment and Plan: Resolved on CBI. CBI stopped, if blood returns, then restart CBI. (2) Hyperkalemia: Code(s): E87.5 - Hyperkalemia Status: Acute Assessment and Plan: Hospitalist consulted, appreciate their recommendation. (3) BPH (benign prostatic hyperplasia): Qualifiers: Lower urinary tract symptom detail: unspecified Code(s): N40.0 - Benign prostatic hyperplasia without lower urinary tract symptoms Status: Chronic Assessment and Plan: Keep ewing in after discharge until next week, ok to switch to a leg bag for discharge. Subjective Subjective Date/Time Seen: 12/09/22 11:32 Post Op day: 1 Principal diagnosis: BPH Interval history: s/p Cystoscopy with TURP. Pt. doing very well, tolerating diet, activity and denies pain. He does have hyperkalemia 6.1, hospitalist consulted. Urine is clear on slow CBI. Review of Systems Cardiovascular: Cardiovascular: Denies chest pain Respiratory: Respiratory: Reports no additional respiratory complaints Genitourinary: Genitourinary: Denies hematuria, Denies genital pain, Denies dysuria, Denies flank pain, Denies urinary frequency, Denies urinary hesitancy, Denies urinary incontinence and Denies urinary urgency Exam Const: General: cooperative and comfortable Resp: Effort & Inspection: normal respiratory effort Cardio: Rate: regular rate GI: GI Palp: Yes Soft to palpation and No Tenderness to palpation present (GI) : General: Yes no CVA tenderness Urinary Catheter: Urinary Catheter: patent and draining and urine clear Extrem: Right lower extremity: no edema Left lower extremity: no edema Objective Data Vital Signs Vital Signs: Vital Signs - 24 hr 12/08/22 11:35 12/08/22 11:45 12/08/22 12:00 Temperature Pulse Rate 107 H 100 110 H Respiratory Rate 20 18 20 Blood Pressure 104/73 103/79 122/86 Pulse Oximetry 100 97 97 Oxygen Delivery Simple Face Mask Room Air Room Air Oxygen Flow Rate 8 12/08/22 12:15 12/08/22 12:25 12/08/22 12:40 Temperature 96.0 F L Pulse Rate 108 H 110 H 115 H Respiratory Rate 18 20 18 Blood Pressure 112/91 H 135/84 117/84 Pulse Oximetry 97 99 96 Oxygen Delivery Room Air Room Air Oxygen Flow Rate 12/08/22 12:55 12/08/22 13:25 12/08/22 14:25 Temperature 96.3 F L 96.2 F L Pulse Rate 118 H 119 H 104 H Respiratory Rate 16 16 18 Blood Pressure 134/92 H 137/95 H 116/91 H Pulse Oximetry 97 97 96 Oxygen Delivery Oxygen Flow Rate 12/08/22 16:00 12/08/22 20:00 12/08/22 22:00 Temperature 96.4 F L 96.7 F L Pulse Rate 113 H 113 H 109 H Respiratory Rate 18 18 16 Blood Pressure 118/90 118/78 Pulse Oximetry 97 97 95 Oxygen Delivery Room Air Oxygen Flow Rate 12/09/22 06:17 12/09/22 08:00 12/09/22 09:33 Temperature 96.5 F L 97.1 F L Pulse Rate 95 91 92 Respiratory Rate 16 16 Blood Pressure 106/63 112/75 Pulse Oximetry 96 98 Oxygen Delivery Oxygen Flow Rate Intake/Output Intake/Output: Intake & Output 12/06/22 12/07/22 12/08/22 12/09/22 23:59 23:59 23:59 23:59 Intake Total 640 980 Output Total 1750 4000 Balance -1110 -3020 Meds/Results Medications: Active Medications Generic Name Dose Route Start Last Admin Trade Name Freq PRN Reason Stop Dose Admin Hydrocodone Bitart/Acetaminophen 1 tab 12/08/22 12:32 Hydrocodone/Acetaminophen (*Crx) 5-325 Mg Tablet PO Q4H PRN Pain Rated 1-6 Atenolol 50 mg 12/09/22 09:00 12/09/22 09:33 Atenolol 50 Mg Tablet PO 50 mg DAILY MK Administration Cephalexin HCl 500 mg 12/09/22 09:00 12/09/22 09:34 Cephalexin 500 Mg Capsule PO 500 mg QID MK Administration Docusate Sodium 100 mg 12/08/22 17:00 12/09/22 09:34 Docusate Sodium 100 Mg Capsule PO 100 mg BID MK Administration Hyoscyamine 0.125 m
--- NOTE | 2022-12-09 13:16 | PM.IMCN ---
Assessment and Plan Assessment and plan (1) Hyperkalemia: Code(s): E87.5 - Hyperkalemia Status: Acute Assessment and Plan: Etiology unclear. Patient is not on medications that would contribute to hyperkalemia renal functions normal. Repeat potassium is improved. EKG shows AFib with RVR rate of 117 and PVCs. No peaked T-waves noted. Will give a dose of Lokelma. Given his edema, we will start with IV Lasix should help with the hyperkalemia. Repeat potassium later tonight. (2) Hyponatremia: Code(s): E87.1 - Hypo-osmolality and hyponatremia Status: Acute Assessment and Plan: Sodium 136 this morning. Last admission, patient's sodium was as low as 110. Monitor closely on Lasix. (3) Afib: Qualifiers: Atrial fibrillation type: paroxysmal Qualified Code(s): I48.0 - Paroxysmal atrial fibrillation Code(s): I48.91 - Unspecified atrial fibrillation Status: Chronic Assessment and Plan: Patient with known chronic atrial fibrillation. He is on atenolol for rate control. His Eliquis is on hold at this time given the recent procedure. Echocardiogram in April of this year shows EF of 60-65% with normal diastolic function and mild valvular disease. Atenolol has been resumed. Resume apixaban when okay with Urology (4) HTN (hypertension): Qualifiers: Hypertension type: essential hypertension Qualified Code(s): I10 - Essential (primary) hypertension Code(s): I10 - Essential (primary) hypertension Status: Chronic Assessment and Plan: Blood pressure well controlled. Continue to monitor on current medications (5) CAD (coronary artery disease): Qualifiers: Associated angina: without angina Coronary Disease-Associated Artery/Lesion type: [place] artery [place] vs. transplanted heart: [place] heart Qualified Code(s): I25.10 - Atherosclerotic heart disease of [place] coronary artery without angina pectoris Code(s): I25.10 - Atherosclerotic heart disease of [place] coronary artery without angina pectoris Status: Chronic Assessment and Plan: Stable. No complaints of chest pain. Continue medical management (6) Gross hematuria: Code(s): R31.0 - Gross hematuria Status: Acute Assessment and Plan: Patient with gross hematuria post TURP procedure. Continue CBI until urine clear. (7) BPH (benign prostatic hyperplasia): Qualifiers: Lower urinary tract symptom detail: unspecified Code(s): N40.0 - Benign prostatic hyperplasia without lower urinary tract symptoms Status: Chronic Assessment and Plan: Patient with symptoms of incomplete bladder emptying related to BPH. He has a history of TURP in 2014. Patient had recurrence of symptoms. He underwent cystoscopy with transurethral resection of the prostate and bladder neck on 12/08/2022. Routine postoperative care per Urology. Plan DVT prophylaxis -SCDs Code status -full Thank you so much for allowing me to be apart of this patient's care. HPI Data of Consult Consult date: 12/09/22 Requesting Physician: Veto Nielson MD Primary Care Provider: Tal Olsen MD Consult Narrative Narrative: Marcos Echeverria is a 77 year old male with CAD, atrial fibrillation on Eliquis and AAA status post endovascular stent graft who is here for elective TURP. Patient had a TURP in 2014. Over the past year so he has been having increasing symptoms to the point where he had difficulty emptying his bladder. Follows with Urology and repeat TURP was recommended. Patient was admitted and underwent TURP procedure yesterday. Hospital service was consulted for hyperkalemia noted on routine labs this morning. Patient was admitted here early part of October for hyponatremia. He was treated appropriately and discharged home on sodium chloride tablets, Lasix and demeclocycline. Patient alexandrea
[2022-12-09] MEDS: SODIUM ZIRCONIUM CYCLOSILICATE 10 GM POWD.PACK PO (15:20)
[2022-12-09] MEDS: FUROSEMIDE INJ 40 MG/4 ML VIAL 20 MG IV PUSH (17:06)
[2022-12-09 18:21] LABS: Potassium 5.5 mmol/L (3.4-5.0)
[2022-12-10 05:27] VITALS: BP 91/71; PULSE 84; RESP 16; TEMP 36.1; O2SAT 96
[2022-12-10 06:27] LABS: Anion Gap 4 mmol/L (8-16); Blood Urea Nitrogen 22 mg/dL (9-20); Calcium 8.6 mg/dL (8.4-10.2); Carbon Dioxide 36 mmol/L (22-30); Chloride 99 mmol/L (98-107); Estimated CRCL calculation 52 ml/min; Estimated Glomerular Filt Rate > 60; Glucose 94 mg/dL (65-110); Potassium 5.1 mmol/L (3.4-5.0); Sodium 139 mmol/L (137-145)
[2022-12-10 06:52] LABS: Cortisol Random 1.28 ug/dL
[2022-12-10 08:00] VITALS: BP 118/71
[2022-12-10] MEDS: CEPHALEXIN 500 MG CAPSULE PO ×2 (08:25→12:28)
[2022-12-10] MEDS: SIMVASTATIN 20 MG TABLET BY MOUTH (08:25)
[2022-12-10] MEDS: PANTOPRAZOLE 40 MG TABLET PO (08:25)
[2022-12-10] MEDS: TAMSULOSIN HCL 0.4 MG CAPSULE PO (08:25)
[2022-12-10] MEDS: FUROSEMIDE INJ 40 MG/4 ML VIAL 20 MG IV PUSH (08:25)
[2022-12-10] MEDS: DOCUSATE SODIUM 100 MG CAPSULE PO (08:25)
--- NOTE | 2022-12-10 09:15 | PM.IMPN ---
Progress Note: A&P Assessment and Plan (1) Hyperkalemia: Code(s): E87.5 - Hyperkalemia Status: Acute Assessment and Plan: Etiology unclear. Patient is not on medications that would contribute to hyperkalemia and renal functions normal. EKG shows AFib with RVR rate of 117 and PVCs. No peaked T-waves noted. Lokalma and Lasix IV started. Repeat potassium is improved. His edema is better. Cortisol is 1.3 so consider Sriram's. Change to oral Lasix 20mg daily which can be continued at home. Repeat BMP in 1 week. Check stimulation test. (2) Hyponatremia: Code(s): E87.1 - Hypo-osmolality and hyponatremia Status: Acute Assessment and Plan: Sodium 136 yesterday morning. Last admission, patient's sodium was as low as 110. Sodium up to 139. Monitor closely (3) Afib: Qualifiers: Atrial fibrillation type: paroxysmal Qualified Code(s): I48.0 - Paroxysmal atrial fibrillation Code(s): I48.91 - Unspecified atrial fibrillation Status: Chronic Assessment and Plan: Patient with known chronic atrial fibrillation. He is on atenolol for rate control. His Eliquis is on hold at this time given the recent procedure. Echocardiogram in April of this year shows EF of 60-65% with normal diastolic function and mild valvular disease. [id number] 4. Atenolol has been resumed. Resume apixaban when okay with Urology (4) HTN (hypertension): Qualifiers: Hypertension type: essential hypertension Qualified Code(s): I10 - Essential (primary) hypertension Code(s): I10 - Essential (primary) hypertension Status: Chronic Assessment and Plan: Blood pressure soft at times. Related to hypocortisolism? Continue to monitor on current medications (5) CAD (coronary artery disease): Qualifiers: Associated angina: without angina Coronary Disease-Associated Artery/Lesion type: [place] artery [place] vs. transplanted heart: [place] heart Qualified Code(s): I25.10 - Atherosclerotic heart disease of [place] coronary artery without angina pectoris Code(s): I25.10 - Atherosclerotic heart disease of [place] coronary artery without angina pectoris Status: Chronic Assessment and Plan: Stable. No complaints of chest pain. Continue medical management (6) Gross hematuria: Code(s): R31.0 - Gross hematuria Status: Acute Assessment and Plan: Patient had gross hematuria post TURP procedure but cleared now with CBI. Follow (7) BPH (benign prostatic hyperplasia): Qualifiers: Lower urinary tract symptom detail: unspecified Code(s): N40.0 - Benign prostatic hyperplasia without lower urinary tract symptoms Status: Chronic Assessment and Plan: Patient with symptoms of incomplete bladder emptying related to BPH. He has a history of TURP in 2014. Patient had recurrence of symptoms. He underwent cystoscopy with transurethral resection of the prostate and bladder neck on 12/08/2022. Routine postoperative care per Urology. Plan DVT prophylaxis -SCDs Code status -full Subjective Date/time seen: 12/10/22 09:15 Interval history: 77yo male with CAD, AFib on Eliquis, BPH and AAA status post endovascular stent graft who is here for elective TURP.?Consulted for hyperkalemia. Patient feels well today. No problems overnight. Off CBI. No chest pain or shortness of breath. No nausea or vomiting. Exam Narrative: AF 96.9 118/71 84 16 96% ra Gen - NARD sitting up in bed feeding himself Chest - lungs CTA bilaterally CV - irregularly irregular. Abd - soft, NT/ND, +BS - Gan secured with red tinged urine Ext - Juan hose in place. trace pedal edema Psych - normal mood and affect. Skin - warm and dry Objective Data Vital Signs Vital Signs: Vital Signs - 24 hr 12/09/22 09:33 12/09/22 11:59 12/09/22 16:00 Temperature 96.6 F L 97.5 F L Pulse Rate 92
--- NOTE | 2022-12-10 09:33 | WPDUROPN2 ---
Progress Note: A&P Assessment and Plan (1) Hyperkalemia: Code(s): E87.5 - Hyperkalemia Status: Acute Assessment and Plan: Resolved. Appreciate hospitalist input. (2) Gross hematuria: Code(s): R31.0 - Gross hematuria Status: Acute Assessment and Plan: [place]/Yellow urine off CBI. Keep CBI off unless urine becomes bloody. Will repeat H&H today, d/t his high risk of a cardiac history, we will restart Eliquis before discharge to ensure gross hematuria doesn't return. Planning tentative discharge this afternoon or tomorrow. (3) Edema of both legs: Code(s): R60.0 - Localized edema Status: Acute Assessment and Plan: Pt. was started on Lasix per hospitalist. (4) BPH (benign prostatic hyperplasia): Qualifiers: Lower urinary tract symptom detail: unspecified Code(s): N40.0 - Benign prostatic hyperplasia without lower urinary tract symptoms Status: Chronic Assessment and Plan: Tolerated TURP well. Hospitalist to do further testing for a low cortisol level prior to discharge. Subjective Subjective Date/Time Seen: 12/10/22 09:33 Post Op day: 1 Principal diagnosis: BPH Interval history: s/p Cystoscopy with TURP. Pt. doing very well, tolerating diet, activity and denies pain. Hyperkalemia resolved, K+ is now 5.1, appreciate hospitalist input. He was also started on a low dose of Lasix d/t BLE edema. Urine is clear off CBI. Review of Systems Cardiovascular: Cardiovascular: Denies chest pain Respiratory: Respiratory: Reports no additional respiratory complaints Gastrointestinal: Gastrointestinal: Denies abdominal pain, Denies nausea and Denies vomiting Genitourinary: Genitourinary: Denies hematuria, Denies flank pain, Denies urinary frequency, Denies urinary hesitancy, Denies urinary incontinence and Denies urinary urgency Exam Const: General: cooperative and comfortable Resp: Effort & Inspection: normal respiratory effort Cardio: Rate: regular rate GI: GI Palp: Yes Soft to palpation and No Tenderness to palpation present (GI) : General: Yes no CVA tenderness Urinary Catheter: Urinary Catheter: patent and draining and urine pink Extrem: Right lower extremity: edema Details: 1+ Left lower extremity: edema Details: 1+ Objective Data Vital Signs Vital Signs: Vital Signs - 24 hr 12/09/22 11:59 12/09/22 16:00 12/09/22 20:00 Temperature 96.6 F L 97.5 F L Pulse Rate 88 97 97 Respiratory Rate 18 16 16 Blood Pressure 115/71 106/68 Pulse Oximetry 97 98 98 Oxygen Delivery Room Air 12/09/22 22:00 12/10/22 05:27 12/10/22 08:00 Temperature 96.4 F L 96.9 F L Pulse Rate 102 H 84 Respiratory Rate 14 16 Blood Pressure 109/65 91/71 L 118/71 Pulse Oximetry 96 96 Oxygen Delivery 12/10/22 08:00 Temperature Pulse Rate Respiratory Rate Blood Pressure Pulse Oximetry Oxygen Delivery Room Air Intake/Output Intake/Output: Intake & Output 12/07/22 12/08/22 12/09/22 12/10/22 23:59 23:59 23:59 23:59 Intake Total 640 2010 300 Output Total 1758 [id number] [facility], [place] [phone] Meds/Results Medications: Active Medications Generic Name Dose Route Start Last Admin Trade Name Freq PRN Reason Stop Dose Admin Hydrocodone Bitart/Acetaminophen 1 tab 12/08/22 12:32 Hydrocodone/Acetaminophen (*Crx) 5-325 Mg Tablet PO Q4H PRN Pain Rated 1-6 Atenolol 50 mg 12/09/22 09:00 12/09/22 09:33 Atenolol 50 Mg Tablet PO 50 mg DAILY MK Administration Cephalexin HCl 500 mg 12/09/22 09:00 12/10/22 08:25 Cephalexin 500 Mg Capsule PO 500 mg QID MK Administration Docusate Sodium 100 mg 12/08/22 17:00 12/10/22 08:25 Docusate Sodium 100 Mg Capsule PO 100 mg BID MK Administration Furosemide 20 mg 12/11/22 09:00 Furosemide 20 Mg Tablet PO DAILY MK Hyoscyamine 0.125 mg 12/08/22 12:32 Hyoscyamine Sulfate 0.125 Mg Tablet SUBLINGUAL
[2022-12-10] MEDS: COSYNTROPIN 0.25 MG/ML VIAL IV PUSH (09:47)
[2022-12-10] MEDS: SODIUM ZIRCONIUM CYCLOSILICATE 10 GM POWD.PACK PO (09:48)
[2022-12-10 10:00] LABS: Hematocrit 43.3 % (42.0-52.0); Hemoglobin 13.7 g/dL (14.0-18.0); Immature Platelet Fraction Pct 4.2 % (0.9-11.2); Mean Corpuscular HGB Conc 31.6 g/dl (32-36); Mean Corpuscular Hemoglobin 31.7 pg (26-34); Mean Corpuscular Volume 100.2 fl (80-100); Mean Platelet Volume 10.3 fl (7.4-10.4); Platelet Count Result 123 k/mm3 (150-375); Red Blood Count 4.32 M/mm3 (4.6-6.20); Red Cell Distribution Width 16.6 % (11.5-14.5); White Blood Count 8.4 K/mm3 (4.5-10.0)
[2022-12-10 10:39] LABS: Cortisol Baseline 1.71 ug/dL
[2022-12-10 11:11] LABS: Cortisol 30 Minute 9.68 ug/dL
[2022-12-10 12:28] VITALS: PULSE 99
[2022-12-10] MEDS: atenoloL 50 MG TABLET PO (12:28)
[2022-12-10 12:33] VITALS: BP 120/76; PULSE 99; RESP 20
[2022-12-10 14:00] VITALS: BP 108/58; PULSE 94; RESP 20; TEMP 36.3; O2SAT 97
--- NOTE | 2022-12-10 14:53 | PM.DS ---
DS: Admitting Diagnosis Discharge Date 12/10/22 Admitting Diagnosis BPH DS: Discharge Diagnosis Discharge Diagnosis Plan BPH, BLE edema, Hyperkalemia DS: Summary Hospital Course Hospital Course: The patient underwent a Cystoscopy and TURP on 12/08/22 which he tolerated well and went to recovery in stable condition, then to the floor for further observation. He then remained on CBI overnight d/t post operative hematuria, which cleared up nicely on POD #1. Unfortunately, he developed hyperkalemia, Etiology unclear.? Patient is not on medications that would contribute to hyperkalemia and renal functions normal.? EKG shows AFib with RVR rate of 117 and PVCs.? No peaked T-waves noted.? Lokalma and Lasix IV started. Repeat potassium is improved.? His edema is better. Cortisol is 1.3 so consider [place]. Change to oral Lasix 20mg daily which can be continued at home. Repeat BMP in 1 week. Cosyntropin stimulation test showing baseline 1.7 with cortisol rising to 9.7 at 30min and 13.4 at 60min. ACTH level pending. Patient being discharged today. BP stable. Will have him follow up with Endocrinology for further evaluation. Discussed with patient. The patient will also restart his Eliquis. He can resume activity without lifting >20lbs, resume a heart heathy diet, resume all home medications otherwise. He will f/u on 12/14/22 at 10:30 to have his ewing removed. Time spent discussing smoking cessation with patient: more than 10 minutes Status at Discharge Functional status at discharge: independent ambulation Overall status at discharge: patient is progressing back to baseline Time Spent with Patient Time attestation: Total time spent providing and/or coordinating discharge services: Time spent: Greater than 30 minutes Exam Const: General: cooperative and comfortable Resp: Effort & Inspection: normal respiratory effort Cardio: Rate: regular rate GI: GI Palp: Yes Soft to palpation and Yes Tenderness to palpation present (GI) : General: Yes no CVA tenderness Urinary Catheter: Urinary Catheter: patent and draining and urine clear Extrem: Right lower extremity: no edema Left lower extremity: no edema DS: Data Data Completed and Pending Completed studies during hospitalization: Pending at discharge 12/08/22 11:09 Surgical [PTH] Routine Labs on day of discharge: Labs from last 24 hours 12/10/22 12/10/22 12/10/22 10:55 10:19 09:45 WBC 8.4 RBC 4.32 L Hgb 13.7 L Hct 43.3 MCV 100.2 H MCH 31.7 MCHC 31.6 L RDW 16.6 H Plt Count 123 L MPV 10.3 % Immature Plt Fraction 4.2 Sodium Potassium Chloride Carbon Dioxide Anion Gap BUN Creatinine Estim Creat Clear Calc Estimated GFR Glucose Calcium Random Cortisol Cortisol Baseline 1.71 Cortisol Resp 30 Min 9.68 Cortisol Resp 60 Min 13.40 ACTH 12/10/22 12/09/22 05:36 17:48 WBC RBC Hgb Hct MCV MCH MCHC RDW Plt Count MPV % Immature Plt Fraction Sodium 139 Potassium 5.1 H 5.5 H Chloride 99 Carbon Dioxide 36 H Anion Gap 4 L BUN 22 H Creatinine 1.00 Estim Creat Clear Calc 52 Estimated GFR > 60 Glucose 94 Calcium 8.6 Random Cortisol 1.28 Cortisol Baseline Cortisol Resp 30 Min Cortisol Resp 60 Min ACTH Pending Discharge Plan Discharge Attending physician on discharge: Veto Nielson Consulting providers: Jack Reyna Discharging Clinician: Kindra Santos Patient Disposition: Home, Self-Care Activity: may shower Diet: as tolerated Discharge Instructions: Urology Instructions: Follow up on 12/14/22 at 10:30am with Kindra Santos [employer] for your catheter removal. Follow up with Dr. Nielson on 12/23/22 10am. Call the office or go to the ER if you develop gross hematuria, fever of >101, a catheter that stops draining or severe abdominal pain. MEDICAL FOLLOW-UP INSTRUCTIONS: With an
[2022-12-13 11:43] LABS: Adrenocorticotropic Hormone 6 pg/mL (6-50)
--- NOTE | 2022-12-15 07:28 | PC.NURSE ---
ACTH- 6. Normal is 6-50.Dr. Reyna aware of findings.
--- NOTE | 2022-12-15 08:00 | PC.NURSE ---
ACTH results faxed to Dr. Olsen.
== END 2022-12-10 16:05 | disposition home or self-care (01) ==
LOC: ANHSURGERY 14:05 → ANH3MEDSUR 14:05
PROVIDERS: Internal Medicine; Admitting Provider Urology; PCP Emergency Medicine; Visit Provider Urology
PROC: 0TBB8ZZ Excision of Bladder, Via Natural or Artificial Opening Endoscopic (ICD-10-PCS; CPT 52630; principal; 2022-12-08 10:00)
PROC: 0VT08ZZ Resection of Prostate, Via Natural or Artificial Opening Endoscopic (ICD-10-PCS; CPT 52601; 2022-12-08 10:00)
DX: N40.1 Benign prostatic hyperplasia with lower urinary tract symptoms (principal); R33.8 Other retention of urine; N32.0 Bladder-neck obstruction; E87.1 Hypo-osmolality and hyponatremia; E87.5 Hyperkalemia; R60.0 Localized edema; E78.2 Mixed hyperlipidemia; I48.91 Unspecified atrial fibrillation; I10 Essential (primary) hypertension; K21.9 Gastro-esophageal reflux disease without esophagitis; E55.9 Vitamin D deficiency, unspecified; E53.8 Deficiency of other specified B group vitamins; I25.10 Atherosclerotic heart disease of native coronary artery without angina pectoris; Z95.5 Presence of coronary angioplasty implant and graft; Z87.891 Personal history of nicotine dependence; Z79.01 Long term (current) use of anticoagulants
CPT/HCPCS: 52630; 36415; 80048; 82024; 82533; 84132; 85014; 85018; 85027; 85055; 85610; 85730; 87086; 87088; 88305; 93005; A9270; G0378; J0690; J0834; J1940; J2405; J2704; J3010; J7120

== ENCOUNTER 2022-12-15 12:50 | Outpatient (CLI) | payer MEDICARE, SELFPAY ==
[2022-12-15 13:46] LABS: Anion Gap 7 mmol/L (8-16); Blood Urea Nitrogen 15 mg/dL (9-20); Carbon Dioxide 32 mmol/L (22-30); Chloride 100 mmol/L (98-107); Estimated Glomerular Filt Rate > 60; Glucose 116 mg/dL (65-110); Potassium 4.8 mmol/L (3.4-5.0); Sodium 139 mmol/L (137-145)
== END 2022-12-15 12:51 | disposition home or self-care (01) ==
LOC: ANHLAB 12:52
PROVIDERS: PCP Emergency Medicine; Visit Provider Internal Medicine
DX: E87.5 Hyperkalemia (principal)
CPT/HCPCS: 36415; 80048

== ENCOUNTER 2022-12-21 13:22 | Outpatient (CLI) | payer MEDICARE, SELFPAY ==
[2022-12-21 14:42] LABS: Albumin Level 3.5 g/dL (3.5-5.1); Anion Gap 5 mmol/L (8-16); Blood Urea Nitrogen 15 mg/dL (9-20); Calcium 8.8 mg/dL (8.4-10.2); Carbon Dioxide 33 mmol/L (22-30); Chloride 100 mmol/L (98-107); Estimated Glomerular Filt Rate > 60; Glucose 100 mg/dL (65-110); Potassium 3.8 mmol/L (3.4-5.0); Sodium 138 mmol/L (137-145)
== END 2022-12-21 13:23 | disposition home or self-care (01) ==
LOC: ANHLAB 13:22
PROVIDERS: PCP Emergency Medicine; Visit Provider Internal Medicine Nephrology
DX: E87.1 Hypo-osmolality and hyponatremia (principal)
CPT/HCPCS: 36415; 80069

== ENCOUNTER 2023-01-25 12:37 | Outpatient (CLI) | payer MEDICARE, SELFPAY ==
[2023-01-25 13:17] LABS: Albumin Level 4.1 g/dL (3.5-5.1); Anion Gap 9 mmol/L (8-16); Blood Urea Nitrogen 17 mg/dL (9-20); Calcium 9.4 mg/dL (8.4-10.2); Carbon Dioxide 32 mmol/L (22-30); Chloride 99 mmol/L (98-107); Estimated Glomerular Filt Rate > 60; Glucose 105 mg/dL (65-110); Phosphorus 4.6 mg/dL (2.5-4.5); Sodium 140 mmol/L (137-145)
== END 2023-01-25 12:38 | disposition home or self-care (01) ==
LOC: ANHLAB 12:39
PROVIDERS: PCP Emergency Medicine; Visit Provider Internal Medicine Nephrology
DX: E87.1 Hypo-osmolality and hyponatremia (principal)
CPT/HCPCS: 36415; 80069

== ENCOUNTER 2023-03-30 12:42 | Outpatient (CLI) | payer MEDICARE, SELFPAY ==
--- NOTE | 2023-03-30 13:02 | ECHO_ITS ---
Patient Info Name: Marcos Echeverria Age: 77 years : 1945 Gender: Male Ht: 68 in Wt: 188 lbs BSA: 2.04 m2 HR: 88 bpm BP: 134 / 90 mmHg Heart Rhythm: Sinus Rhythm Technical Quality: Good Exam Date: 03/30/2023 1:11 PM Exam Location: Echo Lab Patient Status: Outpatient Admit Date: 03/30/2023 Staff Ordering Physician: Yunier Domingo DO Beam Worker: Christiano Nunez RDCS Attending Provider: Yunier Domingo DO Referring Physician: Jose L ESTRADA; Exam Type: CA echo doppler color flow Study Info Indications - Mitral valve insufficiency Complete two-dimensional, color flow and Doppler transthoracic echocardiogram is performed. Summary 1. Complete two-dimensional, color flow and Doppler transthoracic echocardiogram is performed. 2. Left ventricular chamber dimension is normal. 3. Left ventricular systolic function is normal, estimated at 60-65%. 4. There is mild concentric increased left ventricular wall thickness. 5. The left ventricular diastolic function is abnormal. 6. E/e' 10 is mildly elevated. 7. Left atrial chamber dimension is severely enlarged. 8. There is mild aortic valve sclerosis. 9. The mitral valve has moderately calcified annulus. 10. There is moderate mitral valve regurgitation. 11. There is moderate tricuspid valve regurgitation. 12. Mild pulmonary hypertension, estimated pulmonary arterial systolic pressure is 42 mmHg. 13. There is trace pulmonic regurgitation. Left Ventricle E/e' 10 is mildly elevated. Left ventricular chamber dimension is normal. Left ventricular systolic function is normal, estimated at 60-65%. There is mild concentric increased left ventricular wall thickness. The left ventricular diastolic function is abnormal. Right Ventricle Right ventricular systolic function is normal based on normal TAPSE 2.6 cm. Right ventricular chamber dimension is moderately enlarged. Left Atria Left atrial chamber dimension is severely enlarged. Right Atria Right atrial chamber dimension is severely enlarged. Aortic Valve The aortic valve is trileaflet. There is mild aortic valve sclerosis. There is no aortic valve stenosis. There is no aortic valve regurgitation. Pulmonic Valve There is trace pulmonic regurgitation. Mitral Valve The mitral valve has moderately calcified annulus. There is no mitral valve stenosis. There is moderate mitral valve regurgitation. Tricuspid Valve There is moderate tricuspid valve regurgitation. Mild pulmonary hypertension, estimated pulmonary arterial systolic pressure is 42 mmHg. Pericardium/Pleural There is no pericardial effusion. Inferior Vena Cava Normal inferior vena cava with >50% collapse upon inspiration consistent with normal right atrial pressure, 5 mmHg. Aorta The aortic root size at the sinus of Valsalva is normal. Left Ventricular Outflow Tract Name Value Normal LVOT 2D LVOT Diameter 1.9 cm LVOT Doppler LVOT Peak Gradient 1 mmHg LVOT Mean Gradient 1 mmHg LVOT VTI 13 cm LVOT VTI/AV VTI Ratio 0.9 LVOT Stroke Volume 37 ml LVOT CO
== END 2023-03-30 12:43 | disposition home or self-care (01) ==
LOC: ANHCARD 12:43
PROVIDERS: PCP Emergency Medicine; Visit Provider Internal Medicine Cardiovascular Disease
DX: I27.20 Pulmonary hypertension, unspecified (principal); I08.1 Rheumatic disorders of both mitral and tricuspid valves
CPT/HCPCS: 93306

== ENCOUNTER 2023-05-24 10:22 | Emergency (ER) | payer MEDICARE, SELFPAY ==
[2023-05-24] VITALS (11 sets, daily range): BP systolic 104–137; BP diastolic 81–94; PULSE 84–105; RESP 12–23; TEMP 36.6; O2SAT 96–100
--- NOTE | ~2023-05-24 | XR_ITS ---
EXAMINATION: XR chest 2V DATE: 05/24/2023 11:23 INDICATION: Dyspnea TECHNIQUE: PA and lateral views of the chest were obtained. COMPARISON: Chest radiograph dated 10/19/[address] dated 07/07/2022 FINDINGS: Again seen is hyperexpansion of lungs with flattening of the diaphragm and increased retrosternal tonny ar space consistent with mild emphysema better appreciated on prior CT. Unchanged mild streaky atelec tasis/scarring at the bilateral lung bases. No new airspace opacities, pulmonary edema, pleural effus ion or pneumothorax. Cardiomegaly. Partially visualized abdominal aortic endoluminal stenting. IMPRESSION: 1. Mild emphysema with stable appearance of mild bibasilar atelectasis/scarring. 2. Cardiomegaly. Reviewed, dictated and finalized at location B. IMPRESSION: 1. Mild emphysema with stable appearance of mild bibasilar atelectasis/scarring . 2. Cardiomegaly.
--- NOTE | 2023-05-24 10:30 | ECG_ITS ---
Measurements Intervals [place] Rate: 88 P: NV: 0 QRS: -48 QRSD: 99 T: 89 QT: 351 QTc: 426 Interpretive Statements ATRIAL FIBRILLATION INCOMPLETE RIGHT BUNDLE BRANCH BLOCK LEFT ANTERIOR FASCICULAR BLOCK CANNOT RULE OUT SEPTAL INFARCT, AGE INDETERMINATE BORDERLINE T WAVE ABNORMALITY- HIGH LATERAL LEADS BASELINE ARTIFACT- II, III, V3-V6 ABNORMAL ECG COMPARED TO ECG 12/09/2022 09:48:18 INCOMPLETE RIGHT BUNDLE-BRANCH BLOCK NOW PRESENT Electronically Signed On 05-24-2023 10:43:20 CDT by Yunier Domingo D.O.
[2023-05-24 10:53] LABS: Basophils Percent Auto 0.5 % (0.2-1.2); Eosinophils Percent Auto 0.5 % (0-4.4); Hematocrit 38.7 % (42.0-52.0); Hemoglobin 12.1 g/dL (14.0-18.0); Immature Granulocyte Absolute 0.02 K/mm3 (0.00-0.031); Immature Granulocyte Percent A 0.3 % (0-0.5); Immature Platelet Fraction Pct 3.8 % (0.9-11.2); Lymphocytes Absolute Auto 0.75 K/mm3 (0.9-3.2); Lymphocytes Percent Auto 12.2 % (18.3-44.2); Mean Corpuscular HGB Conc 31.3 g/dl (32-36); Mean Corpuscular Hemoglobin 27.3 pg (26-34); Mean Corpuscular Volume 87.2 fl (80-100); Mean Platelet Volume 9.4 fl (7.4-10.4); Monocytes Absolute Auto 0.4 K/mm3 (0.1-0.6); Monocytes Percent Auto 7.1 % (2.6-8.5); Neutrophils Absolute Auto 4.9 K/mm3 (1.3-6.7); Neutrophils Percent Auto 79.4 % (45.5-73.1); Platelet Count Result 144 k/mm3 (150-375); Red Blood Count 4.44 M/mm3 (4.6-6.20); Red Cell Distribution Width 15.8 % (11.5-14.5); White Blood Count 6.2 K/mm3 (4.5-10.0)
[2023-05-24 11:01] LABS: Alanine Aminotransferase 16 U/L (6-50); Albumin Level 3.8 g/dL (3.5-5.1); Alkaline Phosphatase 67 U/L (38-126); Anion Gap 6 mmol/L (8-16); Aspartate Amino Transferase 33 U/L (17-59); Bilirubin,Total 0.9 mg/dL (0.2-1.3); Blood Urea Nitrogen 13 mg/dL (9-20); Calcium 9.2 mg/dL (8.4-10.2); Carbon Dioxide 33 mmol/L (22-30); Chloride 94 mmol/L (98-107); Estimated CRCL calculation 72 ml/min; Estimated Glomerular Filt Rate > 60; Glucose 116 mg/dL (65-110); Sodium 133 mmol/L (137-145)
[2023-05-24 11:10] LABS: INR 1.6; Prothrombin Time 20.2 Seconds (11.1-14.7)
[2023-05-24 11:11] LABS: Partial Thromboplastin Time 43.1 SECONDS (22.3-36.8)
[2023-05-24 11:13] LABS: NT Pro B Type Natriuretic Pept 4460 pg/mL (19.9-100); Troponin I 0.013 ng/mL (0.000-0.034)
[2023-05-24] MEDS: IPRATROPIUM 0.5 MG/ALBUTEROL SULFATE 2.5 MG AMPUL.NEB 3 ML INHALATION (11:21)
[2023-05-24] MEDS: ALBUTEROL SULFATE NEB 2.5 MG/3 ML INH 10 MG INHALATION (13:15)
[2023-05-24] MEDS: IPRATROPIUM BR 0.02% INH SOLN 0.5 MG/2.5 ML VIAL 1 MG INHALATION (13:15)
--- NOTE | 2023-05-24 14:46 | ED.GENADULT ---
HPI - General Adult General Chief complaint: Shortness of Breath/Dyspnea Stated complaint: shortness of breath Time Seen by Provider: 05/24/23 10:31 History of Present Illness HPI narrative: Patient is a 77-year-old male who presents to the ER with shortness of breath. Ongoing over last week. He has a wet cough that is nonproductive. Cough he will make him short of breath. He is not to to walk around his home. He denies orthopnea. No new edema to lower extremities. He does take a diuretic. Recently had an echocardiogram that showed an EF of 60-65% Related Data Home Medications Medication Instructions Recorded Confirmed flaxseed oil 1,000 mg capsule See Rx Instructions .Route .COMPLEX 04/23/19 05/17/23 cholecalciferol (vitamin D3) 50 2,000 unit PO DAILY 01/22/20 05/17/23 mcg (2,000 unit) capsule cyanocobalamin (vitamin B-12) 250 See Rx Instructions .Route .COMPLEX 01/22/20 05/17/23 mcg tablet (Vitamin B-12) atenolol 50 mg tablet 50 mg PO DAILY 11/18/22 05/17/23 omeprazole magnesium 20 mg 20 mg PO DAILY 11/30/22 05/17/23 tablet,delayed release (Prilosec OTC) Allergies Allergy/AdvReac Type Severity Reaction Status Date / Time lisinopril AdvReac Severe tongue and Verified 05/24/23 10:22 lip swelling ibuprofen AdvReac Unknown Gastrointestinal Verified 05/24/23 11:09 Upset Review of Systems Review of Systems: All systems reviewed & are unremarkable except as noted in HPI and below Constitutional: Constitutional: Reports no additional constitutional complaints ENT: Reports system reviewed and no additional complaints, except as documented Cardiovascular: Cardiovascular: Reports no additional cardiovascular complaints Respiratory: Respiratory: Reports cough, Reports dyspnea and Reports wheezing PMFSH Past Medical History Medical History Abnormal CT scan, chest Abnormal EKG Adenomatous colon polyp Afib Atherosclerotic heart disease of [place] coronary artery with angina pectoris B12 deficiency Bowel habit changes Chronic atrial fibrillation Colon cancer screening Enlarged prostate without lower urinary tract symptoms (luts) Essential (primary) hypertension Gastro-esophageal reflux disease without esophagitis HTN (hypertension) Hyperglycemia Incontinence of feces Lung nodule Mixed hyperlipidemia Non-rheumatic mitral regurgitation Other hyperlipidemia Overweight (04/22/15) Positive colorectal cancer screening using Cologuard test Smoking Tobacco abuse Vitamin D deficiency Surgical History Surgical History H/O heart artery stent History of aortic aneurysm repair History of cardiac cath History of endovascular stent graft for abdominal aortic aneurysm History of transurethral resection of prostate Family History Family History Father Acute myocardial infarction Social History Social History Social History: the patient lives with his . he has 3 children. His is the [employer]. The patient retired from [employer]. He denies any alcohol marijuana or illicit drugs. Code status full code Smoking packs per day: 1.5 Smoking cigarettes per day: 30.0 Years smoked: 54 Smoking pack-years: 81.00 Smoking status: Former smoker Tobacco type: cigarettes Second hand tobacco smoke exposure: Yes Smoking end date: 03/15/18 Additional smoking assessment comments: quit in 2019 Alcohol intake: never Substance use: never Substance use type: does not use Current Housing: Decline to Answer Concerned About Future Housing: Decline to Answer Difficulty Paying Gas/Electric Bills: Decline to Answer Difficulty Paying for Meds: Decline to Answer Currently Unemployed: Decline to Answer
== END 2023-05-24 15:09 | disposition home or self-care (01) ==
PROVIDERS: Emergency Provider Emergency Medicine; PCP Emergency Medicine
DX: J40 Bronchitis, not specified as acute or chronic (principal); I25.119 Atherosclerotic heart disease of native coronary artery with unspecified angina pectoris; I48.20 Chronic atrial fibrillation, unspecified; I10 Essential (primary) hypertension; I34.0 Nonrheumatic mitral (valve) insufficiency; E53.8 Deficiency of other specified B group vitamins; E78.2 Mixed hyperlipidemia; E55.9 Vitamin D deficiency, unspecified; N40.0 Benign prostatic hyperplasia without lower urinary tract symptoms; K21.9 Gastro-esophageal reflux disease without esophagitis; Z95.5 Presence of coronary angioplasty implant and graft; Z86.010 Personal history of colon polyps; Z87.891 Personal history of nicotine dependence; Z90.79 Acquired absence of other genital organ(s); Z79.01 Long term (current) use of anticoagulants; J43.9 Emphysema, unspecified; I51.7 Cardiomegaly; I45.2 Bifascicular block; R94.31 Abnormal electrocardiogram [ECG] [EKG]
CPT/HCPCS: 36415; 71046; 80053; 83880; 84484; 85025; 85055; 85610; 85730; 93005; 94640; 99284

== ENCOUNTER 2023-07-19 13:59 | Outpatient (CLI) | payer MEDICARE, SELFPAY ==
--- NOTE | ~2023-07-19 | CT_ITS ---
CT Scan of the Chest without Contrast: Clinical Indication: Lung cancer screening, nicotine dependence Technique: Contiguous sections were acquired throughout the chest without intravenous contrast. Dose reduction technique was used on this scan by utilizing automated exposure control and iterative recon struction technique. The dose-length product (DLP) was 110.51 mGy-cm. COMPARISON: 07/02/2022 Findings: There is no evidence of any significant mediastinal, hilar or axillary lymphadenopathy. Atherosclerot ic calcifications of the aorta and coronary arteries are present. There is no evidence of pleural or pericardial effusion. 9 mm nodule at the inferior right upper lobe, likely focal atelectatic change or scarring (axial imag e 69), but indeterminate overall. Mild emphysema present. Images through the upper abdomen reveal no abnormalities. Impression: Lung RADS 4A: Suspicious. 3 month follow-up CT scan recommended to reassess. Reviewed, dictated and finalized at [facility]. Impression: Lung RADS 4A: Suspicious. 3 month follow-up CT scan recommended to reassess.
== END 2023-07-19 14:00 | disposition home or self-care (01) ==
PROVIDERS: PCP Emergency Medicine; Visit Provider Emergency Medicine
DX: Z12.2 Encounter for screening for malignant neoplasm of respiratory organs (principal); Z87.891 Personal history of nicotine dependence
CPT/HCPCS: 71271

== ENCOUNTER 2023-10-20 12:30 | Outpatient (CLI) | payer MEDICARE, SELFPAY ==
--- NOTE | ~2023-10-20 | CT_ITS ---
CT Scan of the Chest without Contrast: Clinical Indication: Lung cancer screening, nicotine dependence Technique: Contiguous sections were acquired throughout the chest without intravenous contrast. Dose reduction technique was used on this scan by utilizing automated exposure control and iterative recon struction technique. The dose-length product (DLP) was 119.40 mGy-cm. COMPARISON: 07/21/2023 Findings: There is no evidence of any significant mediastinal, hilar or axillary lymphadenopathy. There are ext ensive atherosclerotic calcifications of the aorta and coronary arteries. No pericardial effusion. Small right pleural effusion present. No left pleural effusion.. There is mild emphysema. There is right basilar scarring or atelectasis. No discrete pulmonary nodule evident. Images through the upper abdomen reveal partially imaged proximal portion of an infrarenal abdominal aortic stent graft. Impression: Lung RADS 2-S: Benign appearance. 12 month follow-up screening CT advised. Small right pleural effusion. Mild emphysema. Reviewed, dictated and finalized at [facility]. Impression: Lung RADS 2-S: Benign appearance. 12 month follow-up screening CT advised. Small right pleural effusion. Mild emphysema.
== END 2023-10-20 12:31 | disposition home or self-care (01) ==
LOC: ANHIMG 12:33
PROVIDERS: PCP Emergency Medicine; Visit Provider Emergency Medicine
DX: Z12.2 Encounter for screening for malignant neoplasm of respiratory organs (principal); Z87.891 Personal history of nicotine dependence; J90 Pleural effusion, not elsewhere classified; J43.9 Emphysema, unspecified
CPT/HCPCS: 71271

== ENCOUNTER 2024-02-17 14:14 | Inpatient (IN) | payer MEDICARE, SELFPAY ==
[2024-02-17] VITALS (13 sets, daily range): BP systolic 91–140; BP diastolic 52–117; PULSE 93–116; RESP 18–39; TEMP 36.2–36.8; O2SAT 89–99; BMI 27.5
--- NOTE | ~2024-02-17 | CT_ITS ---
EXAMINATION: CT brain wo con DATE: 02/17/2024 15:16 INDICATION: Weakness. Loss of balance. TECHNIQUE: Computed tomography (CT) of the head was performed without intravenous contrast. The mA wa s adjusted according to patient size. Iterative reconstruction technique was employed. The dose-lengt h product was 605.33 mGy-cm. COMPARISON: Head CT 10/16/2022 FINDINGS: There are scattered areas of low attenuation in the cerebral white matter. There is no intr acranial hemorrhage, acute infarction, or abnormal intracranial mass lesion. The ventricles are raj l in size. There is mild mucosal thickening in the paranasal sinuses. There are likely changes of ocu lar lens replacement surgeries. There is a small left mastoid effusion. IMPRESSION: 1. Stable moderate nonspecific cerebral white matter disease, which likely represents chronic small v essel ischemic disease. Reviewed, dictated and finalized at location A. CIATE PROFESSOR OF LITERATURE IMPRESSION: 1. Stable moderate nonspecific cerebral white matter disease, which likely repr esents chronic small vessel ischemic disease.
--- NOTE | ~2024-02-17 | XR_ITS ---
XR chest 2V 02/17/2024 15:26 Indication: Shortness of breath and cough Procedure: 2 view chest Comparison: Comparison to multiple prior studies sequentially, with oldest reviewed study dated 03/2022. Findings: Bibasilar airspace disease, compatible with pneumonia. Small right pleural effusion. No pne umothorax. No acute osseous abnormality. Cardiomegaly. Impression: 1: Bibasilar airspace disease, compatible with pneumonia. Reviewed, dictated and finalized at location B. CIPAL IOS DEVELOPER Impression: 1: Bibasilar airspace disease, compatible with pneumonia.
--- NOTE | 2024-02-17 14:58 | ECG_ITS ---
Test Date: 2024-02-17 16:22:07 Measurements Intervals [place] Rate: 102 P: 0 NH: 0 QRS: -53 QRSD: 85 T: 4 QT: 321 QTc: 420 Interpretive Statements ATRIAL FIBRILLATION WITH RAPID VENTRICULAR RESPONSE MARKED LEFT AXIS DEVIATION [QRS AXIS < -30] POSSIBLE RIGHT VENTRICULAR CONDUCTION DELAY [RSR (QR) IN V1/V2] NONSPECIFIC ST & T-WAVE ABNORMALITY No previous ECG available for comparison Electronically Signed On 02-18-2024 12:26:45 [employer] by Kassi Diana M.D.
--- NOTE | 2024-02-17 14:58 | ED.WEAKNESS ---
HPI - Weakness General Chief complaint: Weakness <DORA Alvarez Last Filed: 02/17/24 15:01> Stated complaint: weakness <DORA Alvarez Last Filed: 02/17/24 15:01> Time Seen by Provider: 02/17/24 14:59 <DORA Alvarez Last Filed: 02/17/24 15:01> Focused HPI: Patient is a 78-year-old male, past medical history of COPD/ emphysema, AFib on Eliquis, CHF, who presents the ED with report of shortness of breath. Patient reports he has had increased shortness breath over the last 1 week. Worse with any type of exertion. States his oxygen has been ranging in the mid 80s at home on his home pulse oximeter. He denies previous oxygen requirement. Reports intermittent productive cough, weakness, issues with his balance. Denies fevers. Denies chest pain. GENERAL: Elderly, and in no acute distress. HEAD: Normocephalic, atraumatic. ENT: Cyanotic discoloration/appearance of nose which patient reports is chronic. CHEST: Clear to auscultation. Mild rhonchi in bases bilaterally, occasional end expiratory wheezing -worse in R lung field. HEART: Tachycardic with regular rhythm.? NEURO: ?Alert and oriented x3. Patient screened in triage and initial orders placed.? ?Additional care and disposition to be based upon?diagnostic testing and treatment. <DORA Alvarez Last Filed: 02/17/24 15:01> Source: patient <DORA Alvarez Last Filed: 02/17/24 15:01> Mode of arrival: wheelchair <DORA Alvarez Last Filed: 02/17/24 15:01> Limitations: no limitations <DORA Alvarez Last Filed: 02/17/24 15:01> History of Present Illness HPI Narrative: the patient is a 78-year-old gentleman who presents emergency department with chief complaint of shortness of breath and generalized weakness. The patient reports over the last week he has been getting weaker the patient states that he has been unsteady in his feet reports that he has had a little bit of a cough the patient when he presented to triage was saturating in the upper 80s patient does not wear oxygen at home. <Jack Andrade MD - Last Filed: 02/17/24 21:03> Related Data Home medications: Home Medications Medication Instructions Recorded Confirmed cholecalciferol (vitamin D3) 50 2,000 unit PO DAILY 01/22/20 12/08/23 mcg (2,000 unit) capsule omeprazole magnesium 20 mg 20 mg PO DAILY 11/30/22 12/08/23 tablet,delayed release (Prilosec OTC) mecobalamin (vitamin B12) 500 mcg 500 mcg PO .MWF 06/01/23 12/08/23 chewable tablet flaxseed oil 1,000 mg capsule See Rx Instructions .Route .COMPLEX 07/14/23 12/08/23 <Oma Valdez PA-C - Last Filed: 02/17/24 15:01> Allergies/Adverse reactions: Allergies Allergy/AdvReac Type Severity Reaction Status Date / Time lisinopril AdvReac Severe tongue and Verified 11/17/23 13:46 lip swelling ibuprofen AdvReac Unknown Gastrointestinal Verified 11/17/23 13:46 Upset <Oma Valdez PA-C - Last Filed: 02/17/24 15:01> Review of Systems Review of Systems: A 10 system review of systems was completed on the patient and is negative except for what is stated in the HPI. Nursing and ancillary documentation was reviewed. <Jack Andrade MD - Last Filed: 02/17/24 21:03> [facility] Past Medical History Medical History: Medical History Adenomatous colon polyp Adrenal insufficiency Afib Atherosclerotic heart disease of [place] coronary artery with angina pectoris B12 deficiency Chronic atrial fibrillation COPD (chronic obstructive pulmonary disease) Diabetes mellitus Enlarged prostate without lower urinary tract symptoms (luts) Essential (primary) hypertension Gastro-esophageal reflux disease without esophagitis Gross hematuria HTN (hypertension) Hypomagnesemia Insomnia Lung nodule Mixed hyperlipidemia Non-rheumatic mitral regurgitation Other hyperlipidemia Overweight (04/22/15) Smoking Tobacco abuse Vitamin D deficiency <Oma Valdez PA-C - Last Filed: 02/17/24 15:01> Surgical History Surgical History: Surgical History H/O heart artery stent History of aortic aneurysm repair History of cardiac cath History of endovascular stent graft for abdominal aortic aneurysm History of transurethral resection of prostate S/P TURP <DORA Alvarez Last Filed: 02/17/24 15:01> Family History Family History: Family History Father Acute myocardial infarction <DORA Alvarez Last Filed: 02/17/24 15:01> Social History Social History: Social History Social History: the patient lives with his . he has 3 children. His is the durable power employment law attorney for healthcare. The patient retired from [employer]. He denies any alcohol marijuana or illicit drugs. Code status full code Smoking packs per day: 1.5 Smoking cigarettes per day: 30.0 Years smoked: 54 Smoking pack-years: 81.00 Smoking status: Former smoker Tobacco type: cigarettes Second hand tobacco smoke exposure: Yes Smoking end date: 03/15/18 Additional smoking assessment comments: quit in 2019 Alcohol intake: never Substance use: never Substance use type: does not use Current Housing: Decline to Answer Concerned About Future Housing: Decline to Answer Difficulty Paying Gas/Electric Bills: Decline to Answer Difficulty Paying for Meds: Decline to Answer Currently Unemployed: Decline to Answer Education: Decline to Answer Difficulty w/ Childcare or Family Care: Decline to Answer Living arrangements: with family Occupation/Education: retired Gender identity (if verbalized by the patient): Male Spiritual care concerns: No <DORA Alvarez Last Filed: 02/17/24 15:01> Exam Narrative: GENERAL: Well-appearing, well-nourished, and in no acute distress. HEAD: Normocephalic, atraumatic. EYES: PERRLA and EOMI. ENT: Nares clear, no rhinorrhea or epistaxis. Mucous membranes moist. NECK: Supple. CHEST: rhonchi present on auscultation. No respiratory distress. HEART: Regular rate and rhythm. No murmur heard. Normal peripheral pulses. ABDOMEN: Soft, nontender, nondistended, normal active bowel sounds. EXTREMITIES: Normal range of motion. No edema. SKIN: Warm, dry, no rash. NEURO: No focal deficits. Alert and oriented x3. PSYCH: Normal mood and affect. <Jack Andrade MD - Last Filed: 02/17/24 21:03> Course Vital Signs Vital signs: Vital Signs Temperature 36.2 C L 02/17/24 14:46 Pulse Rate 93 02/17/24 14:46 Respiratory Rate 18 02/17/24 14:46 Blood Pressure 91/52 L 02/17/24 14:46 Pulse Oximetry 89 L 02/17/24 14:46 Oxygen Delivery Room Air 02/17/24 14:46 Temperature 36.8 C 02/17/24 19:48 Pulse Rate 109 H 02/17/24 19:48 Respiratory Rate 23 H 02/17/24 19:48 Blood Pressure 140/89 02/17/24 19:48 Pulse Oximetry 97 02/17/24 19:48 Oxygen Delivery Nasal Cannula 02/17/24 19:48 Oxygen Flow Rate 2 02/17/24 19:48 <Oma Valdez PA-C - Last Filed: 02/17/24 15:01> Vital Signs Temperature 36.2 C L 02/17/24 14:46 Pulse Rate 93 02/17/24 14:46 Respiratory Rate 18 02/17/24 14:46 Blood Pressure 91/52 L 02/17/24 14:46 Pulse Oximetry 89 L 02/17/24 14:46 Oxygen Delivery Room Air 02/17/24 14:46 Temperature 36.8 C 02/17/24 19:48 Pulse Rate 109 H 02/17/24 19:48 Respiratory Rate 23 H 02/17/24 19:48 Blood Pressure 140/89 02/17/24 19:48 Pulse Oximetry 97 02/17/24 19:48 Oxygen Delivery Nasal Cannula 02/17/24 19:48 Oxygen Flow Rate 2 02/17/24 19:48 <Jack Andrade MD - Last Filed: 02/17/24 21:03> MDM - Weakness MDM Narrative Medical decision making narrative: MSE by LYSSA in triage. <Oma Valdez PA-C - Last Filed: 02/17/24 15:01> MSE by LYSSA in triage. differential diagnosis includes pneumonia, COPD, CHF the patient was hypoxic at triage and is requiring 2 L of nasal cannula oxygen. The patient was given breathing treatments in the emergency department chest x-ray showed evidence of pneumonia the patient was started on Rocephin and Zithromax case was discussed with the hospitalist the patient does have intermittent AFib with RVR I given the patient has a slightly elevated troponin the patient be admitted to the IMU. <Jack Andrade MD - Last Filed: 02/17/24 21:03> Lab Data Result diagrams: 02/17/24 16:25 02/17/24 16:25 <Oma Valdez PA-C - Last Filed: 02/17/24 15:01> Labs: Lab Results 02/17/24 02/17/24 Range/Units 16:25 20:44 WBC 4.7 (4.5-10.0) K/mm3 RBC 4.68 (4.6-6.20) M/mm3 Hgb 12.5 L (14.0-18.0) g/dL Hct 39.4 L (42.0-52.0) % MCV 84.2 (80-100) fl MCH 26.7 (26-34) pg MCHC 31.7 L (32-36) g/dl RDW 17.2 H (11.5-14.5) % Plt Count 106 L (150-375) k/mm3 MPV 10.7 H (7.4-10.4) fl Immature Gran % (Auto) 0.4 (0-0.5) % Neut % (Auto) 85.5 H (45.5-73.1) % Lymph % (Auto) 9.2 L (18.3-44.2) % [place] % (Auto) 4.7 (2.6-8.5) % Eos % (Auto) 0.0 (0-4.4) % Baso % (Auto) 0.2 (0.2-1.2) % Lymph # (Auto) 0.43 L (0.9-3.2) K/mm3 [place] # (Auto) 0.2 (0.1-0.6) K/mm3 Eos # (Auto) 0.0 (0-0.3) K/mm3 Baso # (Auto) 0.0 (0.0-0.1) K/mm3 Abs Immat Gran (auto) 0.02 (0.00-0.031) K/mm3 Absolute Neuts (auto) 4.0 (1.3-6.7) K/mm3 Absolute Nucleated RBC 0.000 (0.0-0.012) K/mm3 Nucleated RBC % 0.0 (0.0-0.2) % % Immature Plt Fraction 5.6 (0.9-11.2) % PT 23.5 H (11.1-14.7) Seconds INR 2.0 APTT 48.8 H (22.3-36.8) Seconds Sodium 134 L (137-145) mmol/L Potassium 4.4 (3.4-5.0) mmol/L Chloride 93 L (98-107) mmol/L Carbon Dioxide 36 H (22-30) mmol/L Anion Gap 5 (4-12) mmol/L BUN 27 H D (9-20) mg/dL Creatinine 0.80 (0.7-1.3) mg/dL Estim Creat Clear Calc 63 ml/min Estimated GFR > 60 (59 - ) Glucose 108 (65-110) mg/dL Calcium 8.9 (8.4-10.2) mg/dL Total Bilirubin 1.4 H (0.2-1.3) mg/dL AST 50 (17-59) U/L ALT 18 (6-50) U/L Alkaline Phosphatase 61 (38-126) U/L Troponin I 0.048 H* (0.000-0.034) ng/mL NT-Pro-B Natriuret Pep 5370 H (19.9-100) pg/mL Total Protein 7.0 (6.3-8.2) g/dL Albumin 3.8 (3.5-5.1) g/dL Urine Color Pending Urine Appearance Pending Urine pH Pending Ur Specific [place] Pending Urine Protein Pending Urine Glucose (UA) Pending Urine Ketones Pending Ur Blood (Man) Pending Urine Nitrate Pending Urine Bilirubin Pending Urine Urobilinogen Pending Leukocyte Esterase Rfl Pending <Oma Valdez PA-C - Last Filed: 02/17/24 15:01> Lab Results 02/17/24 02/17/24 Range/Units 16:25 20:44 WBC 4.7 (4.5-10.0) K/mm3 RBC 4.68 (4.6-6.20) M/mm3 Hgb 12.5 L (14.0-18.0) g/dL Hct 39.4 L (42.0-52.0) % MCV 84.2 (80-100) fl MCH 26.7 (26-34) pg MCHC 31.7 L (32-36) g/dl RDW 17.2 H (11.5-14.5) % Plt Count 106 L (150-375) k/mm3 MPV 10.7 H (7.4-10.4) fl Immature Gran % (Auto) 0.4 (0-0.5) % Neut % (Auto) 85.5 H (45.5-73.1) % Lymph % (Auto) 9.2 L (18.3-44.2) % [place] % (Auto) 4.7 (2.6-8.5) % Eos % (Auto) 0.0 (0-4.4) % Baso % (Auto) 0.2 (0.2-1.2) % Lymph # (Auto) 0.43 L (0.9-3.2) K/mm3 [place] # (Auto) 0.2 (0.1-0.6) K/mm3 Eos # (Auto) 0.0 (0-0.3) K/mm3 Baso # (Auto) 0.0 (0.0-0.1) K/mm3 Abs Immat Gran (auto) 0.02 (0.00-0.031) K/mm3 Absolute Neuts (auto) 4.0 (1.3-6.7) K/mm3 Absolute Nucleated RBC 0.000 (0.0-0.012) K/mm3 Nucleated RBC % 0.0 (0.0-0.2) % % Immature Plt Fraction 5.6 (0.9-11.2) % PT 23.5 H (11.1-14.7) Seconds INR 2.0 APTT 48.8 H (22.3-36.8) Seconds Sodium 134 L (137-145) mmol/L Potassium 4.4 (3.4-5.0) mmol/L Chloride 93 L (98-107) mmol/L Carbon Dioxide 36 H (22-30) mmol/L Anion Gap 5 (4-12) mmol/L BUN 27 H D (9-20) mg/dL Creatinine 0.80 (0.7-1.3) mg/dL Estim Creat Clear Calc 63 ml/min Estimated GFR > 60 (59 - ) Glucose 108 (65-110) mg/dL Calcium 8.9 (8.4-10.2) mg/dL Total Bilirubin 1.4 H (0.2-1.3) mg/dL AST 50 (17-59) U/L ALT 18 (6-50) U/L Alkaline Phosphatase 61 (38-126) U/L Troponin I 0.048 H* (0.000-0.034) ng/mL NT-Pro-B Natriuret Pep 5370 H (19.9-100) pg/mL Total Protein 7.0 (6.3-8.2) g/dL Albumin 3.8 (3.5-5.1) g/dL Urine Color Pending Urine Appearance Pending Urine pH Pending Ur Specific [place] Pending Urine Protein Pending Urine Glucose (UA) Pending Urine Ketones Pending Ur Blood (Man) Pending Urine Nitrate Pending Urine Bilirubin Pending Urine Urobilinogen Pending Leukocyte Esterase Rfl Pending <Jack Andrade MD - Last Filed: 02/17/24 21:03> Discharge Plan Discharge Clinical Impression: Acute hypoxic respiratory failure, Pneumonia, Atrial fibrillation with rapid ventricular response, Elevated troponin <Oma Valdez PA-C - Last Filed: 02/17/24 15:01> Patient Disposition: Still a Patient <Oma Valdez PA-C - Last Filed: 02/17/24 15:01> Condition: Stable <Oma Valdez PA-C - Last Filed: 02/17/24 15:01> Prescriptions: No Action flaxseed oil 1,000 mg capsule See Rx Instructions .ROUTE .COMPLEX Rx Instructions: take 1 tablet by oral route daily; administer with a meal albuterol sulfate 90 mcg/actuation HFA aerosol inhaler 2 - 4 puff INHALATION QID PRN (Reason: shortness of breath or wheezing) Qty: 8.5 3RF furosemide 20 mg tablet 20 mg PO DAILY Qty: 90 2RF tamsulosin 0.4 mg capsule See Rx Instructions .ROUTE .COMPLEX Qty: 90 2RF Dose Instruction: TAKE 1 CAPSULE BY MOUTH DAILY 30 MINUTES AFTER THE SAME MEAL Rx Instructions: TAKE 1 CAPSULE BY MOUTH DAILY 30 MINUTES AFTER THE SAME MEAL fluticasone propionate [Flonase Allergy Relief] 50 mcg/actuation spray,suspension 1 spray intranasal BID Qty: 48 3RF Rx Instructions: administer into each nostril cholecalciferol (vitamin D3) 50 mcg (2,000 unit) capsule 2,000 unit PO DAILY metformin 500 mg tablet 500 mg PO BID Qty: 180 2RF mecobalamin (vitamin B12) 500 mcg tablet,chewable 500 mcg PO .MWF omeprazole magnesium [Prilosec OTC] 20 mg Tablet,Delayed Release (Dr/Ec) 20 mg PO DAILY simvastatin 20 mg tablet See Rx Instructions .ROUTE .COMPLEX Qty: 90 2RF Dose Instruction: TAKE 1 TABLET BY MOUTH DAILY Rx Instructions: TAKE 1 TABLET BY MOUTH DAILY Eliquis 5 mg tablet See Rx Instructions .ROUTE .COMPLEX Qty: 60 3RF Dose Instruction: TAKE 1 TABLET BY MOUTH TWICE DAILY Rx Instructions: TAKE 1 TABLET BY MOUTH TWICE DAILY atenolol 50 mg tablet See Rx Instructions .ROUTE .COMPLEX Qty: 90 3RF Dose Instruction: TAKE 1 TABLET BY MOUTH DAILY Rx Instructions: TAKE 1 TABLET BY MOUTH DAILY temazepam 15 mg capsule 15 mg PO QHS PRN (Reason: sleep) Qty: 30 1RF <Oam Valdez PA-C - Last Filed: 02/17/24 15:01> Follow-up/Referrals: Tal Olsen MD [Primary Care Provider] - <Oma Valdez PA-C - Last Filed: 02/17/24 15:01> Time of Disposition: 21:03 <Oma Valdez PA-C - Last Filed: 02/17/24 15:01> 21:03 <Jack Andrade MD - Last Filed: 02/17/24 21:03>
[2024-02-17 16:37] LABS: Basophils Percent Auto 0.2 % (0.2-1.2); Hematocrit 39.4 % (42.0-52.0); Hemoglobin 12.5 g/dL (14.0-18.0); Immature Granulocyte Absolute 0.02 K/mm3 (0.00-0.031); Immature Granulocyte Percent A 0.4 % (0-0.5); Immature Platelet Fraction Pct 5.6 % (0.9-11.2); Lymphocytes Absolute Auto 0.43 K/mm3 (0.9-3.2); Lymphocytes Percent Auto 9.2 % (18.3-44.2); Mean Corpuscular HGB Conc 31.7 g/dl (32-36); Mean Corpuscular Hemoglobin 26.7 pg (26-34); Mean Corpuscular Volume 84.2 fl (80-100); Mean Platelet Volume 10.7 fl (7.4-10.4); Monocytes Absolute Auto 0.2 K/mm3 (0.1-0.6); Monocytes Percent Auto 4.7 % (2.6-8.5); Neutrophils Percent Auto 85.5 % (45.5-73.1); Platelet Count Result 106 k/mm3 (150-375); Red Blood Count 4.68 M/mm3 (4.6-6.20); Red Cell Distribution Width 17.2 % (11.5-14.5); White Blood Count 4.7 K/mm3 (4.5-10.0)
[2024-02-17 16:46] LABS: Prothrombin Time 23.5 Seconds (11.1-14.7)
[2024-02-17 16:47] LABS: Alanine Aminotransferase 18 U/L (6-50); Albumin Level 3.8 g/dL (3.5-5.1); Alkaline Phosphatase 61 U/L (38-126); Anion Gap 5 mmol/L (4-12); Aspartate Amino Transferase 50 U/L (17-59); Bilirubin,Total 1.4 mg/dL (0.2-1.3); Blood Urea Nitrogen 27 mg/dL (9-20); Calcium 8.9 mg/dL (8.4-10.2); Carbon Dioxide 36 mmol/L (22-30); Chloride 93 mmol/L (98-107); Estimated CRCL calculation 63 ml/min; Estimated Glomerular Filt Rate > 60; Glucose 108 mg/dL (65-110); Partial Thromboplastin Time 48.8 Seconds (22.3-36.8); Potassium 4.4 mmol/L (3.4-5.0); Sodium 134 mmol/L (137-145)
[2024-02-17 17:02] LABS: NT Pro B Type Natriuretic Pept 5370 pg/mL (19.9-100); Troponin I 0.048 ng/mL (0.000-0.034)
--- NOTE | 2024-02-17 18:27 | PCRCNOTE ---
unable to draw ABG; unable to administer nebulizer treatment due to room not available
--- NOTE | 2024-02-17 20:51 | P.HP_ITS ---
H&P: HPI History of Present Illness Date/Time: 02/17/24 20:51 Chief Complaint: Weakness, off balance Narrative: 78-year-old male with a past medical history of COPD, diastolic dysfunction, mild pulmonary hypertension, type 2 diabetes mellitus BPH and multiple other medical conditions who presented to the ER with weakness and feeling off balance. The patient had denied much of a cough but ER staff noted the patient had can almost continuous cough of productive sputum. He had reported decreased appetite with dark urine out of his Gan catheter. In triage patient was noted to be hypoxic with sats at 87-90% on room air. The patient seems offended when I asked him about whether not he has been coughing. He reports that he just does not feel right when he stands up to walk. He feels so weak that he feels like he is going to fall over. He denies any lightheadedness or near syncopal symptoms. He denies any chest pain or palpitations. He has chronic lower extremity edema which he thinks is stable at baseline. His last bowel movement was the day of admission. He denies any hematochezia or melena. He denies any recent ill contacts. Imaging in the ER demonstrated bilateral lower lobe pneumonia although the patient had normal white count. Viral panel was not performed by ER staff but I ordered this and it turns out patient is COVID positive. He denies any for fevers or chills. Review of Systems Review of Systems: 12 systems were reviewed with pertinent positives and negatives per HPI. Except as documented in the HPI, all other systems were reviewed and are negative. 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 B12 deficiency CAD (coronary artery disease) Chronic anticoagulation Chronic atrial fibrillation Chronic indwelling Gan catheter COPD (chronic obstructive pulmonary disease) Diabetes mellitus Diastolic dysfunction Echocardiogram March 2023: EF 60 65%, mild concentric increased left ventricular wall thickness, abnormal diastolic function, E/E 10 is mildly elevated, severe left atrial enlargement, moderate mitral valve regurgitation, moderate tricuspid valve regurgitation, mild pulmonary hypertension Enlarged prostate without lower urinary tract symptoms (luts) Essential (primary) hypertension Gastro-esophageal reflux disease without esophagitis Gross hematuria HTN (hypertension) Hypomagnesemia Insomnia Lung nodule Mitral regurgitation Mitral valve regurgitation Mixed hyperlipidemia Non-rheumatic mitral regurgitation Moderate noted on echo March 2023 Other hyperlipidemia Overweight (04/22/15) Paroxysmal SVT (supraventricular tachycardia) Pulmonary hypertension Mild on echo March 2023 Smoking Tobacco abuse Tricuspid regurgitation Moderate noted on echocardiogram March 2023 Vitamin D deficiency Surgical History Surgical History H/O heart artery stent History of aortic aneurysm repair History of cardiac cath History of endovascular stent graft for abdominal aortic aneurysm History of transurethral resection of prostate S/P TURP Family History Family History Father Acute myocardial infarction Social History Social History (Updated 02/18/24 @ 07:26 by Aissatou Santoro DO) Social History: He lives with his . They raised 3 children. He retired from [employer]. He denies any alcohol, marijuana or illicit drugs. Code status: Full code Healthcare power of deputy prosecuting attorney: Smoking packs per day: 1 Smoking cigarettes per day: 20.0 Years smoked: 50 Smoking pack-years: 50.00 Smoking status: Former smoker Tobacco type: cigarettes Second hand tobacco smoke exposure: Yes Smoking end date: 03/15/73 Additional smoking assessment comments: quit in 2019 Alcohol intake: former Substance use: former Substance use type: does not use Do You Feel Safe in your Home?: Yes Lack of Transportation: No Lack of Food: Never True Current Housing: I Have Housing Concerned About Future Housing: No Difficulty Paying Gas/Electric Bills: No Difficulty Paying for Meds: No Currently Unemployed: No Education: High School Diploma/GED Difficulty w/ Childcare or Family Care: No Living arrangements: with family Occupation/Education: retired Gender identity (if verbalized by the patient): Male Spiritual care concerns: No Meds Home Medications and Allergies Home Medications Medication Instructions Recorded Confirmed Type cholecalciferol (vitamin D3) 50 2,000 unit PO DAILY 01/22/20 02/17/24 History mcg (2,000 unit) capsule omeprazole magnesium 20 mg 20 mg PO DAILY 11/30/22 02/17/24 History tablet,delayed release (Prilosec OTC) mecobalamin (vitamin B12) 500 mcg 500 mcg PO .MWF 06/01/23 02/17/24 History chewable tablet flaxseed oil 1,000 mg capsule 1,000 mg PO DAILY 07/14/23 02/17/24 History metformin 500 mg tablet 500 mg PO BID #180 tabs 07/14/23 02/17/24 Rx albuterol sulfate 90 mcg/actuation 2 - 4 puff inhalation QID PRN 11/17/23 02/17/24 Rx aerosol inhaler shortness of breath or wheezing #8.5 grams furosemide 20 mg tablet 20 mg PO DAILY #90 tabs 11/17/23 02/17/24 Rx temazepam 15 mg capsule 15 mg PO QHS PRN sleep #30 caps 02/09/24 02/17/24 Rx apixaban 5 mg tablet (Eliquis) 5 mg PO BID 02/17/24 02/17/24 History atenolol 50 mg tablet 50 mg PO DAILY 02/17/24 02/17/24 History simvastatin 20 mg tablet 20 mg PO DAILY 02/17/24 02/17/24 History tamsulosin 0.4 mg capsule 0.4 mg PO DAILY 02/17/24 02/17/24 History Allergies Allergy/AdvReac Type Severity Reaction Status Date / Time lisinopril AdvReac Severe tongue and Verified 11/17/23 13:46 lip swelling ibuprofen AdvReac Unknown Gastrointestinal Verified 11/17/23 13:46 Upset Vital Signs Vital Signs - 24 hr 02/17/24 14:46 02/17/24 14:58 02/17/24 18:59 Temperature 97.1 F L Pulse Rate 93 95 Respiratory Rate 18 18 Blood Pressure 91/52 L 107/69 Pulse Oximetry 89 L 95 96 Oxygen Delivery Room Air Nasal Cannula Oxygen Flow Rate 2 02/17/24 19:48 02/17/24 19:48 Temperature 98.3 F Pulse Rate 109 H 109 H Respiratory Rate 23 H Blood Pressure 140/89 Pulse Oximetry 97 Oxygen Delivery Nasal Cannula Oxygen Flow Rate 2 Exam Narrative: Weight 81 kg BMI 27.8 Const: Other: Acutely ill-appearing, appears stated age, sitting up in bed head of bed at 59? HENMT: Other: Mucous membranes are dry, no oral pharyngeal erythema, head is normocephalic atraumatic Eyes: Other: Pupils are equal and reactive, no scleral icterus, no conjunctival pallor, evidence of bilateral lens implants noted Neck: Other: No JVD, no thyromegaly Resp: Other: The expiratory wheezing anterior lung [place], crackles at the bases bilateral posterior, tachypnea Cardio: Other: Irregularly irregular, 2+ bilateral radial pedal pulses GI: Other: Soft, nondistended, normoactive bowel sounds Skin: Other: Mild pallor, non jaundice, dry skin to the extremities x4, mottled appearance to the dorsum of the hands bilaterally Neuro: Other: Alert oriented to person, place, year and name of the current president, the patient thought the month was October, speech is clear, fluent, no facial asymmetry, no gross motor deficits noted Extrem: Other: No clubbing, no pitting edema, no cyanosis Psych: Other: Patient is trying to divert questions and attention, will otherwise pleasant and cooperative, fair judgment and insight H&P: Results Labs Labs: Laboratory Tests 02/17/24 16:25 02/17/24 16:25 02/17/24 02/17/24 02/17/24 16: 20:44 20:58 WBC 4.7 RBC 4.68 Hgb 12.5 L Hct 39.4 L MCV 84.2 MCH 26.7 MCHC 31.7 L RDW 17.2 H Plt Count 106 L MPV 10.7 H Immature Gran % (Auto) 0.4 Neut % (Auto) 85.5 H Lymph % (Auto) 9.2 L [place] % (Auto) 4.7 Eos % (Auto) 0.0 Baso % (Auto) 0.2 Lymph # (Auto) 0.43 L [place] # (Auto) 0.2 Eos # (Auto) 0.0 Baso # (Auto) 0.0 Abs Immat Gran (auto) 0.02 Absolute Neuts (auto) 4.0 Absolute Nucleated RBC 0.000 Nucleated RBC % 0.0 % Immature Plt Fraction 5.6 PT 23.5 H INR 2.0 APTT 48.8 H Sodium 134 L Potassium 4.4 Chloride 93 L Carbon Dioxide 36 H Anion Gap 5 BUN 27 H D Creatinine 0.80 Estim Creat Clear Calc 63 Estimated GFR > 60 Glucose 108 Calcium 8.9 Total Bilirubin 1.4 H AST 50 ALT 18 Alkaline Phosphatase 61 Troponin I 0.048 H* 0.041 H* NT-Pro-B Natriuret Pep 5370 H Total Protein 7.0 Albumin 3.8 Urine Color Dark yellow Urine Appearance Cloudy H Urine pH 7.0 Ur Specific [place] 1.023 Urine Protein 2+ H Urine Glucose (UA) Negative Urine Ketones Negative Ur Blood (Man) 2+ H Urine Nitrate Positive H Urine Bilirubin Negative Urine Urobilinogen 1.0 Add Ur Microanalysis Reviewed Leukocyte Esterase Rfl 2+ H Urine RBC 21-50 H Urine WBC 51-100 H Ur Squamous Epith Cells Few Urine Bacteria 4+ H Urine Casts 11-20 Granular Casts Present Urine Mucus Present Impressions Head CT 02/17/24 15:18 IMPRESSION: 1. Stable moderate nonspecific cerebral white matter disease, which likely represents chronic small vessel ischemic disease. Chest X-Ray 02/17/24 15:26 Impression: 1: Bibasilar airspace disease, compatible with pneumonia. EKG: Personally reviewed and interpreted AFib with RVR rate 102 normal QTC left axis deviation possible left ventricular conduction delay nonspecific ST T in T-wave abnormality with baseline artifact in the all leads Assessment and Plan Assessment and plan (1) Acute hypoxic respiratory failure: Code(s): J96.01 - Acute respiratory failure with hypoxia Status: Acute (2) Pneumonia: Qualifiers: Laterality: bilateral Lung location: lower lobe of lung Pneumonia type: due to unspecified organism Qualified Code(s): J18.9 - Pneumonia, unspecified organism Code(s): J18.9 - Pneumonia, unspecified organism Status: Acute (3) COPD (chronic obstructive pulmonary disease): Qualifiers: COPD type: COPD with acute lower respiratory infection Qualified Code(s): J44.0 - Chronic obstructive pulmonary disease with (acute) lower respiratory infection Code(s): J44.9 - Chronic obstructive pulmonary disease, unspecified Status: Acute (4) SIRS due to infectious process with acute organ dysfunction: Code(s): A41.9 - Sepsis, unspecified organism; R65.20 - Severe sepsis without septic shock Status: Acute (5) Atrial fibrillation with rapid ventricular response: Code(s): I48.91 - Unspecified atrial fibrillation Status: Acute (6) Elevated troponin: Code(s): R79.89 - Other specified abnormal findings of blood chemistry Status: Acute (7) Chronic anticoagulation: Code(s): Z79.01 - jail (current) use of anticoagulants Status: Acute (8) Chronic indwelling Gan catheter: Code(s): Z97.8 - Presence of other specified devices Status: Acute (9) Abnormal finding on urinalysis: Code(s): R82.90 - Unspecified abnormal findings in urine Status: Acute (10) Pneumonia due to COVID-19 virus: Code(s): U07.1 - COVID-19; J12.82 - Pneumonia due to coronavirus disease 2019 Status: Acute Plan Patient has acute hypoxic respiratory failure likely multifactorial due to bilateral lower lobe pneumonia complicating chronic COPD. Patient does not have a home O2 requirement at baseline but is acutely hypoxic. Will wean oxygen as t olerated to maintain O2 sats between 80 92%. Will place patient on scheduled nebulizers with albuterol and Atrovent. Blood cultures have been ordered and obtained from the ER. Patient has been placed on empiric antibiotic therapy with Rocephin and azithromycin. Will check urine Legionella and pneumococcal antigen. Will check respiratory viral panel. The patient fit SIRS criteria with tachycardia and tachypnea. He is currently afebrile and does not have a white count. Although does fit sepsis criteria given acute infectious process. Patient's COVID PCR did come back positive. The however this does not guarantee patient may not have underlying bacterial component. Will continue antibiotics. Will initiate Decadron per protocol. Will wean oxygen tolerated. The patient had elevated troponin but troponin trending downward. Troponin elevation likely secondary demand to acute hypoxic respiratory failure in the setting of up regulated AFib due to underlying infection. Patient not having chest pain to suggest acute infarct. Patient has grossly abnormal paring UA but not having urinary symptoms aside darker urine than baseline which correlates with the patient's decreased oral intake. Will exchange Gan catheter if not done so in the ER. Patient is already on empiric antibiotic therapy for pneumonia. Although again UTI is less likely given lack of symptoms. Urine culture is pending. Patient's INR is 2 and is on anticoagulation with Eliquis. Will monitor INR with daily labs. CBC and electrolyte panel been ordered for a.m. Quality VTE Prophylaxis VTE prophylaxis: pharmacologic ordered (Continue home Eliquis) Hospitalist MIPS Advance Care Plan I have confirmed that the patient's Advanced Care Plan is present, code status is documented, or surrogate decision maker is listed in patient medical record.: Yes Medication Reconciliation I have utilized all available resources to obtain, update and review the patients current medications (includes all prescriptions, OTC, herbals, cannabis, and nutritional supplements).: Yes
[2024-02-17 21:00] LABS: Add Urine Microscopic? YES; Appearance Urine Cloudy (Clear); Bacteria Urine 4+ /hpf; Bilirubin Urine Negative (Negative); Blood Urine 2+ (Negative); Color Urine Dark Yellow (Yellow); Glucose Urine UA Negative (Negative); Granular Casts Urine Present /lpf; Ketones Urine Negative (Negative); Leukocyte Esterase Ur 2+ LEU/UL (Negative); Mucus Urine Present /lpf; Need Manual Microscopic Reviewed; Nitrate Urine Positive (Negative); Protein Urine 2+ mg/dL (Negative); RBC Urine 21-50 /hpf (0-2); Specific Grav Ur 1.023 (1.001-1.035); Squamous Epithelial Cell Urine Few /hpf (Few); WBC Urine 51-100 /hpf (0-3)
[2024-02-17] MEDS: AZITHROMYCIN 500 MG/NS 250 ML 500 MG/250 ML BAG 250 MG IVPB (21:28)
[2024-02-17 21:30] LABS: Troponin I 0.041 ng/mL (0.000-0.034)
--- NOTE | 2024-02-17 21:50 | ADMGEN ---
This patient, Marcos Echeverria, was admitted to IMU Room 200-01. Patient/family oriented to hospital policies and general routines including ID bracelet, bed and alarms, visiting hours, pain management, procedures, bathroom and other care routines, personal items, smoking policy, room service/diet, and visiting hours. Information on how to activate the Rapid Response Team has been discussed. Patient/Family are encouraged to report perceived risks to care and to ask questions if they do not understand what they are told or what they should do.
[2024-02-17] MEDS: TEMAZEPAM (*CRX) 15 MG CAPSULE PO (23:15)
[2024-02-17] MEDS: APIXABAN 5 MG TABLET PO (23:43)
[2024-02-18] VITALS (27 sets, daily range): BP systolic 89–115; BP diastolic 53–65; PULSE 95–175; RESP 18–28; TEMP 36.3–36.9; O2SAT 91–97
[2024-02-18] MEDS: IPRATROPIUM 0.5 MG/ALBUTEROL SULFATE 2.5 MG AMPUL.NEB 3 ML INHALATION ×4 (01:04→19:10)
[2024-02-18 01:45] LABS: Influenza A QL RT-PCR Negative (Negative); Influenza B QL RT-PCR Negative (Negative); RSV RNA, RT-PCR Negative (Negative); SARS-CoV-2 RNA PCR Positive (Negative)
[2024-02-18 02:01] LABS: Troponin I 0.043 ng/mL (0.000-0.034)
[2024-02-18] MEDS: dexAMETHasone SOD PHOS INJ 10 MG/ML 1 ML VIAL 6 MG IV PUSH (05:17)
[2024-02-18 08:01] LABS: Hematocrit 37.2 % (42.0-52.0); Hemoglobin 11.7 g/dL (14.0-18.0); Immature Platelet Fraction Pct 5.2 % (0.9-11.2); Mean Corpuscular HGB Conc 31.5 g/dl (32-36); Mean Corpuscular Hemoglobin 26.6 pg (26-34); Mean Corpuscular Volume 84.5 fl (80-100); Mean Platelet Volume 10.1 fl (7.4-10.4); Platelet Count Result 95 k/mm3 (150-375); Red Cell Distribution Width 17.2 % (11.5-14.5); White Blood Count 4.6 K/mm3 (4.5-10.0)
[2024-02-18 08:06] LABS: Glucose Point of Care 106 mg/dl (65-105)
[2024-02-18 08:12] LABS: Alanine Aminotransferase 15 U/L (6-50); Albumin Level 3.3 g/dL (3.5-5.1); Alkaline Phosphatase 54 U/L (38-126); Anion Gap 4 mmol/L (4-12); Aspartate Amino Transferase 51 U/L (17-59); Bilirubin,Total 1.4 mg/dL (0.2-1.3); Blood Urea Nitrogen 24 mg/dL (9-20); Calcium 8.4 mg/dL (8.4-10.2); Carbon Dioxide 30 mmol/L (22-30); Chloride 98 mmol/L (98-107); Estimated CRCL calculation 82 ml/min; Estimated Glomerular Filt Rate > 60; Glucose 100 mg/dL (65-110); Magnesium 1.5 mg/dL (1.6-2.3); Potassium 4.7 mmol/L (3.4-5.0); Sodium 132 mmol/L (137-145)
[2024-02-18 08:24] LABS: Troponin I 0.043 ng/mL (0.000-0.034)
[2024-02-18 08:41] LABS: Band Neutrophils Percent 13 % (0-6); Lymphocytes Absolute Manual 0.32 K/mm3 (1.1-4.5); Lymphocytes Percent Manual 7 % (18-44); Monocytes Absolute Manual 0.13 K/mm3 (0.1-0.90); Monocytes Percent Manual 3 % (3-9); Neutrophils Absolute Manual 4.09 K/mm3 (1.3-6.7); Neutrophils Percent Manual 76 % (46-73); Total Cells Counted 100
[2024-02-18 08:42] LABS: Anisocytosis 1+; Burr Cells 1+; Metamyelocytes Percent 1 %; Ovalocytes 1+; Platelet Estimate Decreased (Adequate); Polychromasia 1+; Schistocytes None Seen
[2024-02-18] MEDS: TAMSULOSIN HCL 0.4 MG CAPSULE PO (09:51)
[2024-02-18] MEDS: SIMVASTATIN 20 MG TABLET PO (09:51)
[2024-02-18] MEDS: CHOLECALCIFEROL 1,000 UNITS TABLET 2000 UNITS PO (09:51)
[2024-02-18] MEDS: APIXABAN 5 MG TABLET PO ×2 (09:51→21:55)
[2024-02-18] MEDS: atenoloL 50 MG TABLET PO (09:51)
[2024-02-18] MEDS: FUROSEMIDE 20 MG TABLET PO (09:52)
[2024-02-18] MEDS: CYANOCOBALAMIN 500 MCG TABLET PO (09:52)
[2024-02-18] MEDS: PANTOPRAZOLE 40 MG TABLET PO (09:52)
[2024-02-18] MEDS: ACETAMINOPHEN 325 MG TABLET 650 MG PO (09:52)
--- NOTE | 2024-02-18 09:58 | P.PNIM_ITS ---
Progress Note: A&P Assessment and Plan (1) Acute hypoxic respiratory failure: Code(s): J96.01 - Acute respiratory failure with hypoxia Status: Acute Assessment and Plan: * 02 @ 3 liters nasal cannula * Patient has acute hypoxic respiratory failure likely multifactorial due to bilateral lower lobe pneumonia complicating chronic COPD. * Patient does not have a home O2 requirement at baseline but is acutely hyp oxic. Will wean oxygen as tolerated to maintain O2 sats between 80 92%. (2) Pneumonia: Qualifiers: Laterality: bilateral Lung location: lower lobe of lung Pneumonia type: due to unspecified organism Qualified Code(s): J18.9 - Pneumonia, unspecified organism Code(s): J18.9 - Pneumonia, unspecified organism Status: Acute Assessment and Plan: * Receiving Azithromycin 500 mg IVPB q 24 * Ceftriaxone 1 gm ivpb q 24. * 02@ 3LNC (3) COPD (chronic obstructive pulmonary disease): Qualifiers: COPD type: COPD with acute lower respiratory infection Qualified Code(s): J44.0 - Chronic obstructive pulmonary disease with (acute) lower respiratory infection Code(s): J44.9 - Chronic obstructive pulmonary disease, unspecified Status: Acute Assessment and Plan: * 02@3LNC. * Patient does not have a home O2 requirement at baseline but is acutely hypoxic. Will wean oxygen as tolerated to maintain O2 sats between 80 92%. * Dexamethasone 6 mg ivp daily. * Duoneb (4) SIRS due to infectious process with acute organ dysfunction: Code(s): A41.9 - Sepsis, unspecified organism; R65.20 - Severe sepsis without septic shock Status: Acute Assessment and Plan: * Blood cultures no growth to date. * The patient fit SIRS criteria with tachycardia and tachypnea. * He is currently afebrile and does not have a white count. Although does fit sepsis criteria given acute infectious process. * Patient's COVID PCR did come back positive. * Lactic acid 1.5 (5) Atrial fibrillation with rapid ventricular response: Code(s): I48.91 - Unspecified atrial fibrillation Status: Acute Assessment and Plan: * Patient's INR is 2 and is on anticoagulation with Eliquis. (6) Elevated troponin: Code(s): R79.89 - Other specified abnormal findings of blood chemistry Status: Acute Assessment and Plan: * Troponin 0.048>0.041>0.043>0.043. * Troponin elevation likely secondary demand to acute hypoxic respiratory failure in the setting of up regulated AFib due to underlying infection. * Patient not having chest pain to suggest acute infarct. (7) Chronic anticoagulation: Code(s): Z79.01 - assisted (current) use of anticoagulants Status: Acute Assessment and Plan: * Patient is on Eliquis (8) Chronic indwelling Ewing catheter: Code(s): Z97.8 - Presence of other specified devices Status: Acute Assessment and Plan: * History of bladder surgery requiring ewing afterwards. (9) Abnormal finding on urinalysis: Code(s): R82.90 - Unspecified abnormal findings in urine Status: Acute Assessment and Plan: * Patient has grossly abnormal paring UA but not having urinary symptoms aside darker urine than baseline which correlates with the patient's decreased oral intake. Will exchange Ewing catheter if not done so in the ER. Patient is already on empiric antibiotic therapy for pneumonia. Although again UTI is less likely given lack of symptoms. * Urine culture is pending. (10) Pneumonia due to COVID-19 virus: Code(s): U07.1 - COVID-19; J12.82 - Pneumonia due to coronavirus disease 2019 Status: Acute Assessment and Plan: * Receiving Azithromycin 500 mg IVPB q 24 * Ceftriaxone 1 gm ivpb q 24. * 02@ 3LNC (11) Hypomagnesemia: Code(s): E83.42 - Hypomagnesemia Status: Acute Assessment and Plan: * Magnesium 1.5 * Patient given Magnesium Sulfate 2 gm ivpb x1. Subjective Date/time seen: 02/18/24 09:58 Interval history: Patient reports feeling better since he got some sleep. Patient denies chest pain, palpitations, headache, dizziness, nausea, or vomiting. Review of Systems Review of Systems: All systems reviewed & are unremarkable except as noted in HPI and below Exam Const: General: comfortable and no acute distress Eyes: Sclera: sclerae normal Resp: Auscultation: diminished lung sounds Other: faint crackles in the bases. Tachypneic. Cardio: Rhythm: abnormal rhythm (Afib 112) irregularly irregular GI: GI Palp: Yes Soft to palpation Auscultation: normal bowel sounds Neuro: Speech: normal speech Extrem: General: no pedal edema Psych: Mental Status: mental status grossly normal Affect: normal affect Objective Data Vital Signs Vital Signs: Vital Signs - 24 hr 02/17/24 14:46 02/17/24 14:58 02/17/24 18:59 Temperature 97.1 F L Pulse Rate 93 95 Respiratory Rate 18 18 Blood Pressure 91/52 L 107/69 Pulse Oximetry 89 L 95 96 Oxygen Delivery Room Air Nasal Cannula Oxygen Flow Rate 2 02/17/24 19:48 02/17/24 19:48 02/17/24 19:21 Temperature 98.3 F Pulse Rate 109 H 109 H 104 H Respiratory Rate 23 H 28 H Blood Pressure 140/89 104/75 Pulse Oximetry 97 97 Oxygen Delivery Nasal Cannula Oxygen Flow Rate 2 02/17/24 19:51 02/17/24 20:01 02/17/24 20:31 Temperature Pulse Rate 100 105 H 98 Respiratory Rate 30 H 34 H 29 H Blood Pressure 140/117 H 102/54 L 112/67 Pulse Oximetry 98 99 97 Oxygen Delivery Oxygen Flow Rate 02/17/24 21:01 02/17/24 21:31 02/17/24 21:50 Temperature 98.3 F Pulse Rate 116 H 100 109 H Respiratory Rate 39 H 34 H 24 H Blood Pressure 102/71 114/72 114/92 H Pulse Oximetry 97 99 93 Oxygen Delivery Oxygen Flow Rate 02/17/24 23:44 02/17/24 23:49 02/17/24 23:49 Temperature 98 F Pulse Rate 108 H 102 H 108 H Respiratory Rate 26 H 22 H Blood Pressure 115/75 Pulse Oximetry 93 93 Oxygen Delivery Nasal Cannula Oxygen Flow Rate 2 02/18/24 01:06 02/18/24 01:09 02/18/24 01:16 Temperature Pulse Rate 102 H 102 H 105 H Respiratory Rate 22 H 22 H 20 Blood Pressure Pulse Oximetry 97 Oxygen Delivery Nasal Cannula Oxygen Flow Rate 2 02/18/24 02:00 02/18/24 03:42 02/18/24 03:42 Temperature Pulse Rate 102 H 110 H 110 H Respiratory Rate 20 Blood Pressure Pulse Oximetry 97 Oxygen Delivery Nasal Cannula Oxygen Flow Rate 2 02/18/24 05:00 02/18/24 05:42 02/18/24 07:46 Temperature 98.5 F 97.4 F L Pulse Rate 114 H 114 H 136 H Respiratory Rate 24 H 28 H Blood Pressure 115/65 104/64 Pulse Oximetry 97 92 Oxygen Delivery Oxygen Flow Rate 02/18/24 07:00 02/18/24 07:00 02/18/24 07:10 Temperature Pulse Rate 116 H 116 H 111 H Respiratory Rate 20 20 20 Blood Pressure Pulse Oximetry 97 Oxygen Delivery Nasal Cannula Oxygen Flow Rate 2 02/18/24 09:51 Temperature Pulse Rate 133 H Respiratory Rate Blood Pressure Pulse Oximetry Oxygen Delivery Oxygen Flow Rate Intake/Output Intake/Output: Intake & Output 02/15/24 02/16/24 02/17/24 02/18/24 23:59 23:59 23:59 23:59 Intake Total 300 420 Balance 300 420 Meds/Results Medications: Active Medications Generic Name Dose Route Start Last Admin Trade Name Freq PRN Reason Stop Dose Admin Acetaminophen 650 mg 02/17/24 20:59 02/18/24 09:52 Acetaminophen 325 Mg Tablet PO 650 mg Q4H PRN Administration Mild Pain (1-3) or Fever Albuterol/Ipratropium 3 ml 02/18/24 02:00 02/18/24 07:00 Ipratropium 0.5 Mg/Albuterol Sulfate 2.5 Mg Ampul.Neb 3 Ml INHALATION 3 ml Q6HRT MK Administration Apixaban 5 mg 02/18/24 09:00 02/18/24 09:51 Apixaban 5 Mg Tablet PO 5 mg Q12HR MK Administration Atenolol 50 mg 02/18/24 09:00 02/18/24 09:51 Atenolol 50 Mg Tablet PO 50 mg DAILY MK Administration Cyanocobalamin 500 mcg 02/18/24 09:00 02/18/24 09:52 Cyanocobalamin 500 Mcg Tablet PO 500 mcg MoWeFr MK Administration Dexamethasone Sodium Phosphate 6 mg 02/18/24 05:00 02/18/24 05:17 Dexamethasone Sod Phos Inj 10 Mg/Ml 1 Ml Vial IV PUSH 02/27/24 09:01 6 mg DAILY MK Administration Dextrose 12.5 gm 02/18/24 04:18 Dextrose 50% 25 Gm/50 Ml Syringe IV PUSH PRN PRN Hypoglycemia Protocol Furosemide 20 mg 02/18/24 09:00 02/18/24 09:52 Furosemide 20 Mg Tablet PO 20 mg DAILY MK Administration Glucagon 1 mg 02/18/24 04:18 Glucagon For Inj 1 Mg Vial IM PRN PRN Hypoglycemia Protocol Glucose 15 gm 02/18/24 04:18 Glucose Oral Gel 15 Gm Of Glucse In 37.5 Gm Tube PO PRN PRN Hypoglycemia Protocol Ceftriaxone Sodium 1 gm in 50 mls @ 100 mls/hr 02/18/24 21:00 Rocephin 1 Gm/Ns 50 Ml IVPB Q24H MK Azithromycin 500 mg in 250 mls @ 250 mls/hr 02/18/24 22:00 Zithromax IVPB Q24H MK Dextrose 1,000 mls @ 100 mls/hr 02/18/24 04:18 Dextrose 5% 1,000 Ml IVPB PRN PRN Hypoglycemia Protocol Magnesium Sulfate 2 gm in 50 mls @ 25 mls/hr 02/18/24 09:12 Magnesium Sulf 2 Gm/Water 50ml IVPB 02/18/24 11:11 ONCE ONE Insulin Aspart 2 - 5 units 02/18/24 08:00 02/18/24 08:19 Insulin Aspart (*Bkc) 100 Units/Ml SUB-Q Not Given TIDWM MK Protocol Insulin Aspart 1 - 2 units 02/18/24 21:00 Insulin Aspart (*Bkc) 100 Units/Ml SUB-Q HS MK Protocol Pantoprazole Sodium 40 mg 02/18/24 09:00 02/18/24 09:52 Pantoprazole 40 Mg Tablet PO 40 mg QAM MK Administration Simvastatin 20 mg 02/18/24 09:00 02/18/24 09:51 Simvastatin 20 Mg Tablet PO 20 mg DAILY MK Administration Tamsulosin HCl 0.4 mg 02/18/24 09:00 02/18/24 09:51 Tamsulosin Hcl 0.4 Mg Capsule PO 0.4 mg DAILY MK Administration Temazepam 15 mg 02/17/24 22:17 02/17/24 23:15 Temazepam (*Crx) 15 Mg Capsule PO 15 mg QHS PRN Administration sleep Vitamin D 2,000 units 02/18/24 09:00 02/18/24 09:51 Cholecalciferol 1,000 Units Tablet PO 2,000 units DAILY MK Administration Radiology Results: ITS Impressions Head CT 02/17/24 15:18 IMPRESSION: 1. Stable moderate nonspecific cerebral white matter disease, which likely represents chronic small vessel ischemic disease. Chest X-Ray 02/17/24 15:26 Impression: 1: Bibasilar airspace disease, compatible with pneumonia. Labs Labs: Laboratory Results - last 24 hr 02/17/24 02/17/24 02/17/24 16:25 20:44 20:58 WBC 4.7 RBC 4.68 Hgb 12.5 L Hct 39.4 L MCV 84.2 MCH 26.7 MCHC 31.7 L RDW 17.2 H Plt Count 106 L MPV 10.7 H Immature Gran % (Auto) 0.4 Neut % (Auto) 85.5 H Lymph % (Auto) 9.2 L [place] % (Auto) 4.7 Eos % (Auto) 0.0 Baso % (Auto) 0.2 Lymph # (Auto) 0.43 L [place] # (Auto) 0.2 Eos # (Auto) 0.0 Baso # (Auto) 0.0 Abs Immat Gran (auto) 0.02 Absolute Neuts (auto) 4.0 Absolute Nucleated RBC 0.000 Total Counted Neutrophils % (Manual) Band Neutrophils % Lymphocytes % (Manual) Monocytes % (Manual) Metamyelocytes % Nucleated RBC % 0.0 Abs Neuts (Manual) Abs Lymphs (Manual) Abs Monocytes (Manual) Platelet Estimate % Immature Plt Fraction 5.6 Polychromasia Anisocytosis Ovalocytes Amanda Cells Schistocytes PT 23.5 H INR 2.0 APTT 48.8 H Sodium 134 L Potassium 4.4 Chloride 93 L Carbon Dioxide 36 H Anion Gap 5 BUN 27 H D Creatinine 0.80 Estim Creat Clear Calc 63 Estimated GFR > 60 Glucose 108 POC Capillary Glucose Calcium 8.9 Magnesium Total Bilirubin 1.4 H AST 50 ALT 18 Alkaline Phosphatase 61 Troponin I 0.048 H* 0.041 H* NT-Pro-B Natriuret Pep 5370 H Total Protein 7.0 Albumin 3.8 Urine Color Dark yellow Urine Appearance Cloudy H Urine pH 7.0 Ur Specific [place] 1.023 Urine Protein 2+ H Urine Glucose (UA) Negative Urine Ketones Negative Ur Blood (Man) 2+ H Urine Nitrate Positive H Urine Bilirubin Negative Urine Urobilinogen 1.0 Add Ur Microanalysis Reviewed Leukocyte Esterase Rfl 2+ H Urine RBC 21-50 H Urine WBC 51-100 H Ur Squamous Epith Cells Few Urine Bacteria 4+ H Urine Casts 11-20 Granular Casts Present Urine Mucus Present Influenza A (RT-PCR) Influenza B (RT-PCR) RSV (RT-PCR) SARS-CoV-2 RNA (RT-PCR) 02/18/24 02/18/24 02/18/24 01:03 01:21 07:48 WBC 4.6 RBC 4.40 L Hgb 11.7 L Hct 37.2 L MCV 84.5 MCH 26.6 MCHC 31.5 L RDW 17.2 H Plt Count 95 L MPV 10.1 Immature Gran % (Auto) Not Reportable Neut % (Auto) Not Reportable Lymph % (Auto) Not Reportable [place] % (Auto) Not Reportable Eos % (Auto) Not Reportable Baso % (Auto) Not Reportable Lymph # (Auto) Not Reportable [place] # (Auto) Not Reportable Eos # (Auto) Not Reportable Baso # (Auto) Not Reportable Abs Immat Gran (auto) Not Reportable Absolute Neuts (auto) Not Reportable Absolute Nucleated RBC Not Reportable Total Counted 100 Neutrophils % (Manual) 76 H Band Neutrophils % 13 H Lymphocytes % (Manual) 7 L Monocytes % (Manual) 3 Metamyelocytes % 1 Nucleated RBC % Not Reportable Abs Neuts (Manual) 4.09 Abs Lymphs (Manual) 0.32 L Abs Monocytes (Manual) 0.13 Platelet Estimate Decreased % Immature Plt Fraction 5.2 Polychromasia 1+ Anisocytosis 1+ Ovalocytes 1+ [place] Cells 1+ Schistocytes None seen PT INR APTT Sodium 132 L Potassium 4.7 Chloride 98 Carbon Dioxide 30 Anion Gap 4 BUN 24 H Creatinine 0.60 L Estim Creat Clear Calc 82 Estimated GFR > 60 Glucose 100 POC Capillary Glucose Calcium 8.4 Magnesium 1.5 L Total Bilirubin 1.4 H AST 51 ALT 15 Alkaline Phosphatase 54 Troponin I 0.043 H* 0.043 H* NT-Pro-B Natriuret Pep Total Protein 6.0 L Albumin 3.3 L Urine Color Urine Appearance Urine pH Ur Specific [place] Urine Protein Urine Glucose (UA) Urine Ketones Ur Blood (Man) Urine Nitrate Urine Bilirubin Urine Urobilinogen Add Ur Microanalysis Leukocyte Esterase Rfl Urine RBC Urine WBC Ur Squamous Epith Cells Urine Bacteria Urine Casts Granular Casts Urine Mucus Influenza A (RT-PCR) Negative Influenza B (RT-PCR) Negative RSV (RT-PCR) Negative SARS-CoV-2 RNA (RT-PCR) Positive A 02/18/24 07:49 WBC RBC Hgb Hct MCV MCH MCHC RDW Plt Count MPV Immature Gran % (Auto) Neut % (Auto) Lymph % (Auto) [place] % (Auto) Eos % (Auto) Baso % (Auto) Lymph # (Auto) [place] # (Auto) Eos # (Auto) Baso # (Auto) Abs Immat Gran (auto) Absolute Neuts (auto) Absolute Nucleated RBC Total Counted Neutrophils % (Manual) Band Neutrophils % Lymphocytes % (Manual) Monocytes % (Manual) Metamyelocytes % Nucleated RBC % Abs Neuts (Manual) Abs Lymphs (Manual) Abs Monocytes (Manual) Platelet Estimate % Immature Plt Fraction Polychromasia Anisocytosis Ovalocytes Amanda Cells Schistocytes PT INR APTT Sodium Potassium Chloride Carbon Dioxide Anion Gap BUN Creatinine Estim Creat Clear Calc Estimated GFR Glucose POC Capillary Glucose 106 H Calcium Magnesium Total Bilirubin AST ALT Alkaline Phosphatase Troponin I NT-Pro-B Natriuret Pep Total Protein Albumin Urine Color Urine Appearance Urine pH Ur Specific [place] Urine Protein Urine Glucose (UA) Urine Ketones Ur Blood (Man) Urine Nitrate Urine Bilirubin Urine Urobilinogen Add Ur Microanalysis Leukocyte Esterase Rfl Urine RBC Urine WBC Ur Squamous Epith Cells Urine Bacteria Urine Casts Granular Casts Urine Mucus Influenza A (RT-PCR) Influenza B (RT-PCR) RSV (RT-PCR) SARS-CoV-2 RNA (RT-PCR) Quality VTE Prophylaxis VTE prophylaxis: pharmacologic ordered (Continue home Eliquis)
[2024-02-18] MEDS: MAGNESIUM SULF 2 GM/WATER 50ML 2 GM/50 ML BAG IVPB (10:01)
[2024-02-18 11:49] LABS: Glucose Point of Care 137 mg/dl (65-105)
[2024-02-18 12:13] LABS: Lactic Acid Reflex 1.5 mmol/L (0.7-2.0)
[2024-02-18 16:04] LABS: Glucose Point of Care 232 mg/dl (65-105)
[2024-02-18] MEDS: INSULIN ASPART (*BKC) 100 UNITS/ML SUB-Q ×2 (17:57→21:59)
[2024-02-18 21:19] LABS: Glucose Point of Care 220 mg/dl (65-105)
[2024-02-18] MEDS: AZITHROMYCIN 500 MG/NS 250 ML 500 MG/250 ML BAG 250 MG IVPB (21:55)
[2024-02-18] MEDS: TEMAZEPAM (*CRX) 15 MG CAPSULE PO (21:58)
[2024-02-19] VITALS (24 sets, daily range): BP systolic 93–129; BP diastolic 59–76; PULSE 107–155; RESP 16–28; TEMP 35.8–36.5; O2SAT 92–95
[2024-02-19] MEDS: IPRATROPIUM 0.5 MG/ALBUTEROL SULFATE 2.5 MG AMPUL.NEB 3 ML INHALATION ×4 (01:58→20:24)
[2024-02-19 05:13] LABS: Hematocrit 36.1 % (42.0-52.0); Hemoglobin 10.8 g/dL (14.0-18.0); Immature Granulocyte Absolute 0.04 K/mm3 (0.00-0.031); Immature Granulocyte Percent A 0.9 % (0-0.5); Immature Platelet Fraction Pct 6.2 % (0.9-11.2); Lymphocytes Absolute Auto 0.23 K/mm3 (0.9-3.2); Lymphocytes Percent Auto 5.5 % (18.3-44.2); Mean Corpuscular HGB Conc 29.9 g/dl (32-36); Mean Corpuscular Volume 86.8 fl (80-100); Mean Platelet Volume 10.1 fl (7.4-10.4); Monocytes Absolute Auto 0.2 K/mm3 (0.1-0.6); Monocytes Percent Auto 5.2 % (2.6-8.5); Neutrophils Absolute Auto 3.7 K/mm3 (1.3-6.7); Neutrophils Percent Auto 88.4 % (45.5-73.1); Platelet Count Result 104 k/mm3 (150-375); Red Blood Count 4.16 M/mm3 (4.6-6.20); White Blood Count 4.2 K/mm3 (4.5-10.0)
[2024-02-19 05:14] LABS: Alanine Aminotransferase 17 U/L (6-50); Alkaline Phosphatase 56 U/L (38-126); Anion Gap 3 mmol/L (4-12); Aspartate Amino Transferase 48 U/L (17-59); Bilirubin,Total 0.9 mg/dL (0.2-1.3); Blood Urea Nitrogen 27 mg/dL (9-20); Calcium 8.3 mg/dL (8.4-10.2); Carbon Dioxide 35 mmol/L (22-30); Chloride 97 mmol/L (98-107); Estimated CRCL calculation 82 ml/min; Estimated Glomerular Filt Rate > 60; Glucose 145 mg/dL (65-110); Potassium 4.1 mmol/L (3.4-5.0); Sodium 135 mmol/L (137-145)
[2024-02-19 05:35] LABS: Platelet Estimate Slightly Decreased (Adequate)
[2024-02-19 05:36] LABS: Anisocytosis 2+; Ovalocytes 1+; Schistocytes None Seen
[2024-02-19 07:51] LABS: Glucose Point of Care 139 mg/dl (65-105)
[2024-02-19] MEDS: ACETAMINOPHEN 325 MG TABLET 650 MG PO (08:04)
[2024-02-19] MEDS: PANTOPRAZOLE 40 MG TABLET PO (08:04)
[2024-02-19] MEDS: SIMVASTATIN 20 MG TABLET PO (08:04)
[2024-02-19] MEDS: TAMSULOSIN HCL 0.4 MG CAPSULE PO (08:04)
[2024-02-19] MEDS: CHOLECALCIFEROL 1,000 UNITS TABLET 2000 UNITS PO (08:04)
[2024-02-19] MEDS: APIXABAN 5 MG TABLET PO ×2 (08:04→23:03)
[2024-02-19] MEDS: FUROSEMIDE 20 MG TABLET PO (08:04)
[2024-02-19] MEDS: atenoloL 50 MG TABLET PO (08:04)
[2024-02-19] MEDS: dexAMETHasone SOD PHOS INJ 10 MG/ML 1 ML VIAL 6 MG IV PUSH (08:11)
[2024-02-19 08:31] LABS: Magnesium 1.9 mg/dL (1.6-2.3)
--- NOTE | 2024-02-19 10:45 | P.PNIM_ITS ---
Progress Note: A&P Assessment and Plan (1) Acute hypoxic respiratory failure: Code(s): J96.01 - Acute respiratory failure with hypoxia Status: Acute Assessment and Plan: * 02 @2 liters nasal cannula * Patient has acute hypoxic respiratory failure likely multifactorial due to bilateral lower lobe pneumonia complicating chronic COPD. * Patient does not have a home O2 requirement at baseline but is acutely hypo xic. Will wean oxygen as tolerated to maintain O2 sats between 80 92%. (2) Pneumonia: Qualifiers: Laterality: bilateral Lung location: lower lobe of lung Pneumonia type: due to unspecified organism Qualified Code(s): J18.9 - Pneumonia, unspecified organism Code(s): J18.9 - Pneumonia, unspecified organism Status: Acute Assessment and Plan: * Receiving Azithromycin 500 mg IVPB q 24 * Ceftriaxone 1 gm ivpb q 24. * 02@2LNC * Add Guaifenesin 600 mg PO BID. (3) COPD (chronic obstructive pulmonary disease): Qualifiers: COPD type: COPD with acute lower respiratory infection Qualified Code(s): J44.0 - Chronic obstructive pulmonary disease with (acute) lower respiratory infection Code(s): J44.9 - Chronic obstructive pulmonary disease, unspecified Status: Acute Assessment and Plan: * 02@2LNC. * Patient does not have a home O2 requirement at baseline but is acutely hypoxic. Will wean oxygen as tolerated to maintain O2 sats between 80 92%. * Dexamethasone 6 mg ivp daily. * Duoneb (4) SIRS due to infectious process with acute organ dysfunction: Code(s): A41.9 - Sepsis, unspecified organism; R65.20 - Severe sepsis without septic shock Status: Acute Assessment and Plan: * Blood cultures no growth to date. * The patient fit SIRS criteria with tachycardia and tachypnea. * He is currently afebrile and does not have a white count. Although does fit sepsis criteria given acute infectious process. * Patient's COVID PCR did come back positive. * Lactic acid 1.5 (5) Atrial fibrillation with rapid ventricular response: Code(s): I48.91 - Unspecified atrial fibrillation Status: Acute Assessment and Plan: * Patient's INR is 2 and is on anticoagulation with Eliquis. * Cardiac consulted and added Diltiazem 30 mg PO TID. Continue Atenolol 50 mg PO daily and Eliquis. (6) Elevated troponin: Code(s): R79.89 - Other specified abnormal findings of blood chemistry Status: Acute Assessment and Plan: * Troponin 0.048>0.041>0.043>0.043. * Troponin elevation likely secondary demand to acute hypoxic respiratory failure in the setting of up regulated AFib due to underlying infection. * Patient not having chest pain to suggest acute infarct. (7) Chronic anticoagulation: Code(s): Z79.01 - custodial (current) use of anticoagulants Status: Acute Assessment and Plan: * Patient is on Eliquis (8) Chronic indwelling Ewing catheter: Code(s): Z97.8 - Presence of other specified devices Status: Acute Assessment and Plan: * History of bladder surgery requiring ewing afterwards. (9) Abnormal finding on urinalysis: Code(s): R82.90 - Unspecified abnormal findings in urine Status: Acute Assessment and Plan: * Patient has grossly abnormal paring UA but not having urinary symptoms aside darker urine than baseline which correlates with the patient's decreased oral intake. Will exchange Ewing catheter if not done so in the ER. Patient is already on empiric antibiotic therapy for pneumonia. Although again UTI is less likely given lack of symptoms. * Urine culture is pending. (10) Pneumonia due to COVID-19 virus: Code(s): U07.1 - COVID-19; J12.82 - Pneumonia due to coronavirus disease 2019 Status: Acute Assessment and Plan: * Receiving Azithromycin 500 mg IVPB q 24 * Ceftriaxone 1 gm ivpb q 24. * 02@ 2LNC (11) Hypomagnesemia: Code(s): E83.42 - Hypomagnesemia Status: Acute Assessment and Plan: * Magnesium 1.5 yesterday, patient received Magnesium Sulfate 2 gm ivpb x1. * Magnesium today 1.9. Subjective Date/time seen: 02/19/24 10:45 Interval history: Patient denies shortness of breath, chest pain, palpitations, headache, or dizziness. Patient reports a wet cough. Nurse reported that patient heart rate was going up into the 130's and 140's earlier this morning. Patient is followed by Dr. Domingo Survey Research Associate. Blood pressure on the softer side. Cardiac consult placed. Review of Systems Review of Systems: All systems reviewed & are unremarkable except as noted in HPI and below Exam Const: General: comfortable and no acute distress Eyes: Sclera: sclerae normal Resp: Auscultation: crackles bilateral (scattered) Cardio: Rate: tachycardic Rhythm: abnormal rhythm (Afib 116) irregularly irregular GI: GI Palp: Yes Soft to palpation Auscultation: normal bowel sounds Skin: General skin exam: no rashes or lesions noted Neuro: Speech: normal speech Extrem: General: no pedal edema Psych: Mental Status: mental status grossly normal Affect: normal affect Objective Data Vital Signs Vital Signs: Vital Signs - 24 hr 02/18/24 11:37 02/18/24 12:00 02/18/24 13:10 Temperature 97.7 F Pulse Rate 98 98 Respiratory Rate 28 H 18 Blood Pressure 96/61 L Pulse Oximetry 91 94 Oxygen Delivery Nasal Cannula Oxygen Flow Rate 3 02/18/24 13:20 02/18/24 12:00 02/18/24 15:28 Temperature 97.4 F L Pulse Rate 97 111 H 115 H Respiratory Rate 18 28 H Blood Pressure 91/53 L Pulse Oximetry 91 Oxygen Delivery Oxygen Flow Rate 02/18/24 14:00 02/18/24 16:00 02/18/24 16:00 Temperature Pulse Rate 108 H 118 H Respiratory Rate Blood Pressure Pulse Oximetry 95 Oxygen Delivery Nasal Cannula Oxygen Flow Rate 3 02/18/24 18:00 02/18/24 19:10 02/18/24 19:14 Temperature Pulse Rate 95 105 H 116 H Respiratory Rate 22 H 22 H Blood Pressure Pulse Oximetry 96 Oxygen Delivery Nasal Cannula Oxygen Flow Rate 2 02/18/24 19:18 02/18/24 20:00 02/18/24 21:30 Temperature 97.3 F L Pulse Rate 113 H 113 H 113 H Respiratory Rate 22 H 20 20 Blood Pressure 89/56 L Pulse Oximetry 91 91 Oxygen Delivery Nasal Cannula Oxygen Flow Rate 2 02/18/24 20:00 02/18/24 22:00 02/19/24 00:00 Temperature 97.4 F L Pulse Rate 112 H 114 H 107 H Respiratory Rate 20 Blood Pressure 95/67 L Pulse Oximetry 95 Oxygen Delivery Oxygen Flow Rate 02/19/24 00:11 02/19/24 00:00 02/19/24 00:00 Temperature Pulse Rate 107 H 113 H Respiratory Rate 20 Blood Pressure 93/63 L Pulse Oximetry 95 Oxygen Delivery Nasal Cannula Oxygen Flow Rate 2 02/19/24 01:45 02/19/24 02:00 02/19/24 02:06 Temperature Pulse Rate 112 H 107 H 110 H Respiratory Rate 18 18 Blood Pressure Pulse Oximetry Oxygen Delivery Oxygen Flow Rate 02/19/24 04:00 02/19/24 04:00 02/19/24 04:00 Temperature 97.5 F L Pulse Rate 128 H 128 H 122 H Respiratory Rate 20 20 Blood Pressure 105/59 L Pulse Oximetry 93 93 Oxygen Delivery Nasal Cannula Oxygen Flow Rate 2 02/19/24 05:25 02/19/24 08:00 02/19/24 08:04 Temperature 97.7 F Pulse Rate 120 H 138 H 145 H Respiratory Rate 28 H Blood Pressure 114/72 Pulse Oximetry 95 Oxygen Delivery Oxygen Flow Rate 02/19/24 08:00 02/19/24 08:27 02/19/24 08:27 Temperature Pulse Rate 122 H Respiratory Rate 16 Blood Pressure Pulse Oximetry 92 92 Oxygen Delivery Nasal Cannula Nasal Cannula Oxygen Flow Rate 3 2 02/19/24 08:50 Temperature Pulse Rate 125 H Respiratory Rate 16 Blood Pressure Pulse Oximetry Oxygen Delivery Oxygen Flow Rate Intake/Output Intake/Output: Intake & Output 02/16/24 02/17/24 02/18/24 02/19/24 23:59 23:59 23:59 23:59 Intake Total 300 1330 270 Output Total 650 450 Balance 300 680 -180 Meds/Results Medications: Active Medications Generic Name Dose Route Start Last Admin Trade Name Freq PRN Reason Stop Dose Admin Acetaminophen 650 mg 02/17/24 20:59 02/19/24 08:04 Acetaminophen 325 Mg Tablet PO 650 mg Q4H PRN Administration Mild Pain (1-3) or Fever Albuterol/Ipratropium 3 ml 02/18/24 02:00 02/19/24 08:26 Ipratropium 0.5 Mg/Albuterol Sulfate 2.5 Mg Ampul.Neb 3 Ml INHALATION 3 ml Q6HRT MK Administration Apixaban 5 mg 02/18/24 09:00 02/19/24 08:04 Apixaban 5 Mg Tablet PO 5 mg Q12HR MK Administration Atenolol 50 mg 02/18/24 09:00 02/19/24 08:04 Atenolol 50 Mg Tablet PO 50 mg DAILY MK Administration Cyanocobalamin 500 mcg 02/18/24 09:00 02/18/24 09:52 Cyanocobalamin 500 Mcg Tablet PO 500 mcg MoWeFr MK Administration Dexamethasone Sodium Phosphate 6 mg 02/18/24 05:00 02/19/24 08:11 Dexamethasone Sod Phos Inj 10 Mg/Ml 1 Ml Vial IV PUSH 02/27/24 09:01 6 mg DAILY MK Administration Dextrose 12.5 gm 02/18/24 04:18 Dextrose 50% 25 Gm/50 Ml Syringe IV PUSH PRN PRN Hypoglycemia Protocol Furosemide 20 mg 02/18/24 09:00 02/19/24 08:04 Furosemide 20 Mg Tablet PO 20 mg DAILY MK Administration Glucagon 1 mg 02/18/24 04:18 Glucagon For Inj 1 Mg Vial IM PRN PRN Hypoglycemia Protocol Glucose 15 gm 02/18/24 04:18 Glucose Oral Gel 15 Gm Of Glucse In 37.5 Gm Tube PO PRN PRN Hypoglycemia Protocol Guaifenesin 600 mg 02/19/24 10:45 Guaifenesin 12 Hr 600 Mg Tabcr PO 02/26/24 10:44 Q12HR MK Ceftriaxone Sodium 1 gm in 50 mls @ 100 mls/hr 02/18/24 21:00 02/18/24 22:29 Rocephin 1 Gm/Ns 50 Ml IVPB Infused Q24H MK Infusion Azithromycin 500 mg in 250 mls @ 250 mls/hr 02/18/24 22:00 02/18/24 22:55 Zithromax IVPB Infused Q24H MK Infusion Dextrose 1,000 mls @ 100 mls/hr 02/18/24 04:18 Dextrose 5% 1,000 Ml IVPB PRN PRN Hypoglycemia Protocol Insulin Aspart 2 - 5 units 02/18/24 08:00 02/19/24 08:05 Insulin Aspart (*Bkc) 100 Units/Ml SUB-Q Not Given TIDWM MK Protocol Insulin Aspart 1 - 2 units 02/18/24 21:00 02/18/24 21:59 Insulin Aspart (*Bkc) 100 Units/Ml SUB-Q 1 units HS MK Administration Protocol Pantoprazole Sodium 40 mg 02/18/24 09:00 02/19/24 08:04 Pantoprazole 40 Mg Tablet PO 40 mg QAM MK Administration Simvastatin 20 mg 02/18/24 09:00 02/19/24 08:04 Simvastatin 20 Mg Tablet PO 20 mg DAILY MK Administration Tamsulosin HCl 0.4 mg 02/18/24 09:00 02/19/24 08:04 Tamsulosin Hcl 0.4 Mg Capsule PO 0.4 mg DAILY MK Administration Temazepam 15 mg 02/17/24 22:17 02/18/24 21:58 Temazepam (*Crx) 15 Mg Capsule PO 15 mg QHS PRN Administration sleep Vitamin D 2,000 units 02/18/24 09:00 02/19/24 08:04 Cholecalciferol 1,000 Units Tablet PO 2,000 units DAILY MK Administration Radiology Results: ITS Impressions Head CT 02/17/24 15:18 IMPRESSION: 1. Stable moderate nonspecific cerebral white matter disease, which likely represents chronic small vessel ischemic disease. Chest X-Ray 02/17/24 15:26 Impression: 1: Bibasilar airspace disease, compatible with pneumonia. Labs Labs: Laboratory Results - last 24 hr 02/18/24 02/18/24 02/18/24 11:40 15:24 20:45 WBC RBC Hgb Hct MCV MCH MCHC RDW Plt Count MPV Immature Gran % (Auto) Neut % (Auto) Lymph % (Auto) [place] % (Auto) Eos % (Auto) Baso % (Auto) Lymph # (Auto) [place] # (Auto) Eos # (Auto) Baso # (Auto) Abs Immat Gran (auto) Absolute Neuts (auto) Absolute Nucleated RBC Nucleated RBC % Platelet Estimate % Immature Plt Fraction Anisocytosis Ovalocytes Schistocytes Sodium Potassium Chloride Carbon Dioxide Anion Gap BUN Creatinine Estim Creat Clear Calc Estimated GFR Glucose POC Capillary Glucose 137 H 232 H 220 H Lactic Acid 1.5 Calcium Magnesium Total Bilirubin AST ALT Alkaline Phosphatase Total Protein Albumin 02/19/24 02/19/24 04:10 07:33 WBC 4.2 L RBC 4.16 L Hgb 10.8 L Hct 36.1 L MCV 86.8 MCH 26.0 MCHC 29.9 L RDW 17.0 H Plt Count 104 L MPV 10.1 Immature Gran % (Auto) 0.9 H Neut % (Auto) 88.4 H Lymph % (Auto) 5.5 L [place] % (Auto) 5.2 Eos % (Auto) 0.0 Baso % (Auto) 0.0 L Lymph # (Auto) 0.23 L [place] # (Auto) 0.2 Eos # (Auto) 0.0 Baso # (Auto) 0.0 Abs Immat Gran (auto) 0.04 H Absolute Neuts (auto) 3.7 Absolute Nucleated RBC 0.000 Nucleated RBC % 0.0 Platelet Estimate Slightly decreased % Immature Plt Fraction 6.2 Anisocytosis 2+ Ovalocytes 1+ Schistocytes None seen Sodium 135 L Potassium 4.1 Chloride 97 L Carbon Dioxide 35 H Anion Gap 3 L BUN 27 H Creatinine 0.60 L Estim Creat Clear Calc 82 Estimated GFR > 60 Glucose 145 H POC Capillary Glucose 139 H Lactic Acid Calcium 8.3 L Magnesium 1.9 Total Bilirubin 0.9 AST 48 ALT 17 Alkaline Phosphatase 56 Total Protein 6.0 L Albumin 3.0 L Quality VTE Prophylaxis VTE prophylaxis: pharmacologic ordered (Continue home Eliquis)
[2024-02-19 11:53] LABS: Glucose Point of Care 168 mg/dl (65-105)
[2024-02-19] MEDS: polyethylene glycoL 3350 17 GM POWD.PACK PO (11:54)
[2024-02-19] MEDS: guaiFENesin 12 HR 600 MG TABCR PO ×2 (11:54→23:03)
--- NOTE | 2024-02-19 13:26 | PM.CNCAR ---
Assessment and Plan Assessment and plan (1) Atrial fibrillation with rapid ventricular response: Code(s): I48.91 - Unspecified atrial fibrillation Status: Acute Plan AFib with RVR in the setting of pneumonia COVID pneumonia Chronic diastolic heart failure currently compensated Plan Continue atenolol 50 mg daily Continue Eliquis prior mg b.i.d. Add diltiazem 30 mg TID History of Present Illness History of Present Illness Consult date/time: 02/19/24 13:26 Reason For Visit: Acute hypoxic respiratory fail,pneumonia,AFib RVR Narrative: 78-year-old male patient presents to the hospital with generalized weakness and lack of balance. Has been complaining of decreased appetite recently. On arrival to the found to have hypoxemia and workup revealed COVID infection. Patient was admitted to hospice comfort pneumonia. He was noted to have AFib with RVR. Patient has a history of atrial fibrillation for last 15 years. Patient does not have orthopnea or proximal nocturnal dyspnea. No chest pain. Patient has been compliant with oral anticoagulation Eliquis 5 mg b.i.d. 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 B12 deficiency CAD (coronary artery disease) Chronic anticoagulation Chronic atrial fibrillation Chronic indwelling [place] catheter COPD (chronic obstructive pulmonary disease) Diabetes mellitus Diastolic dysfunction Echocardiogram March 2023: EF 60 65%, mild concentric increased left ventricular wall thickness, abnormal diastolic function, E/E 10 is mildly elevated, severe left atrial enlargement, moderate mitral valve regurgitation, moderate tricuspid valve regurgitation, mild pulmonary hypertension Enlarged prostate without lower urinary tract symptoms (luts) Essential (primary) hypertension Gastro-esophageal reflux disease without esophagitis Gross hematuria HTN (hypertension) Hypomagnesemia Insomnia Lung nodule Mitral regurgitation Mitral valve regurgitation Mixed hyperlipidemia Non-rheumatic mitral regurgitation Moderate noted on echo March 2023 Other hyperlipidemia Overweight (04/22/15) Paroxysmal SVT (supraventricular tachycardia) Pulmonary hypertension Mild on echo March 2023 Smoking Tobacco abuse Tricuspid regurgitation Moderate noted on echocardiogram March 2023 Vitamin D deficiency Surgical History Surgical History H/O heart artery stent History of aortic aneurysm repair History of cardiac cath History of endovascular stent graft for abdominal aortic aneurysm History of transurethral resection of prostate S/P TURP Family History Family History Father Acute myocardial infarction Social History Social History (Updated 02/18/24 @ 07:26 by Aissatou Santoro DO) Social History: He lives with his . They raised 3 children. He retired from [employer]. He denies any alcohol, marijuana or illicit drugs. Code status: Full code Healthcare power of commonwealth attorney: Smoking packs per day: 1 Smoking cigarettes per day: 20.0 Years smoked: 50 Smoking pack-years: 50.00 Smoking status: Former smoker Tobacco type: cigarettes Second hand tobacco smoke exposure: Yes Smoking end date: 03/15/73 Additional smoking assessment comments: quit in 2019 Alcohol intake: former Substance use: former Substance use type: does not use Do You Feel Safe in your Home?: Yes Lack of Transportation: No Lack of Food: Never True Current Housing: I Have Housing Concerned About Future Housing: No Difficulty Paying Gas/Electric Bills: No Difficulty Paying for Meds: No Currently Unemployed: No Education: High School Diploma/GED Difficulty w/ Childcare or Family Care: No Living arrangements: with family Occupation/Education: retired Gender identity (if verbalized by the patient): Male Spiritual care concerns: No Meds Home Medications and Allergies Home Medications Medication Instructions Recorded Confirmed Type cholecalciferol (vitamin D3) 50 2,000 unit PO DAILY 01/22/20 02/17/24 History mcg (2,000 unit) capsule omeprazole magnesium 20 mg 20 mg PO DAILY 11/30/22 02/17/24 History tablet,delayed release (Prilosec OTC) mecobalamin (vitamin B12) 500 mcg 500 mcg PO .MWF 06/01/23 02/17/24 History chewable tablet flaxseed oil 1,000 mg capsule 1,000 mg PO DAILY 07/14/23 02/17/24 History metformin 500 mg tablet 500 mg PO BID #180 tabs 07/14/23 02/17/24 Rx albuterol sulfate 90 mcg/actuation 2 - 4 puff inhalation QID PRN 11/17/23 02/17/24 Rx aerosol inhaler shortness of breath or wheezing #8.5 grams furosemide 20 mg tablet 20 mg PO DAILY #90 tabs 11/17/23 02/17/24 Rx temazepam 15 mg capsule 15 mg PO QHS PRN sleep #30 caps 02/09/24 02/17/24 Rx apixaban 5 mg tablet (Eliquis) 5 mg PO BID 02/17/24 02/17/24 History atenolol 50 mg tablet 50 mg PO DAILY 02/17/24 02/17/24 History simvastatin 20 mg tablet 20 mg PO DAILY 02/17/24 02/17/24 History tamsulosin 0.4 mg capsule 0.4 mg PO DAILY 02/17/24 02/17/24 History Allergies Allergy/AdvReac Type Severity Reaction Status Date / Time lisinopril AdvReac Severe tongue and Verified 11/17/23 13:46 lip swelling ibuprofen AdvReac Unknown Gastrointestinal Verified 11/17/23 13:46 Upset Vital Signs Vital Signs - 24 hr 02/18/24 15:28 02/18/24 14:00 02/18/24 16:00 Temperature 36.3 C L Pulse Rate 115 H 108 H Respiratory Rate 28 H Blood Pressure 91/53 L Pulse Oximetry 91 95 Oxygen Delivery Nasal Cannula Oxygen Flow Rate 3 02/18/24 16:00 02/18/24 18:00 02/18/24 19:10 Temperature Pulse Rate 118 H 95 105 H Respiratory Rate 22 H Blood Pressure Pulse Oximetry Oxygen Delivery Oxygen Flow Rate 02/18/24 19:14 02/18/24 19:18 02/18/24 20:00 Temperature 36.3 C L Pulse Rate 116 H 113 H 113 H Respiratory Rate 22 H 22 H 20 Blood Pressure 89/56 L Pulse Oximetry 96 91 Oxygen Delivery Nasal Cannula Oxygen Flow Rate 2 02/18/24 21:30 02/18/24 20:00 02/18/24 22:00 Temperature Pulse Rate 113 H 112 H 114 H Respiratory Rate 20 Blood Pressure Pulse Oximetry 91 Oxygen Delivery Nasal Cannula Oxygen Flow Rate 2 02/19/24 00:00 02/19/24 00:11 02/19/24 00:00 Temperature 36.3 C L Pulse Rate 107 H 107 H Respiratory Rate 20 20 Blood Pressure 95/67 L 93/63 L Pulse Oximetry 95 95 Oxygen Delivery Nasal Cannula Oxygen Flow Rate 2 02/19/24 00:00 02/19/24 01:45 02/19/24 02:00 Temperature Pulse Rate 113 H 112 H 107 H Respiratory Rate 18 Blood Pressure Pulse Oximetry Oxygen Delivery Oxygen Flow Rate 02/19/24 02:06 02/19/24 04:00 02/19/24 04:00 Temperature 36.4 C L Pulse Rate 110 H 128 H 128 H Respiratory Rate 18 20 20 Blood Pressure 105/59 L Pulse Oximetry 93 93 Oxygen Delivery Nasal Cannula Oxygen Flow Rate 2 02/19/24 04:00 02/19/24 05:25 02/19/24 08:00 Temperature 36.5 C Pulse Rate 122 H 120 H 138 H Respiratory Rate 28 H Blood Pressure 114/72 Pulse Oximetry 95 Oxygen Delivery Oxygen Flow Rate 02/19/24 08:04 02/19/24 08:00 02/19/24 08:27 Temperature Pulse Rate 145 H Respiratory Rate Blood Pressure Pulse Oximetry 92 92 Oxygen Delivery Nasal Cannula Nasal Cannula Oxygen Flow Rate 3 2 02/19/24 08:27 02/19/24 08:50 02/19/24 08:00 Temperature Pulse Rate 122 H 125 H 155 H Respiratory Rate 16 16 Blood Pressure Pulse Oximetry Oxygen Delivery Oxygen Flow Rate 02/19/24 10:00 02/19/24 12:00 02/19/24 12:00 Temperature 36.5 C Pulse Rate 119 H 114 H Respiratory Rate 28 H Blood Pressure 104/67 Pulse Oximetry 94 94 Oxygen Delivery Nasal Cannula Oxygen Flow Rate 2 02/19/24 12:00 Temperature Pulse Rate 120 H Respiratory Rate Blood Pressure Pulse Oximetry Oxygen Delivery Oxygen Flow Rate Exam Const: General: comfortable and no acute distress Other: Able to lie flat HENMT: Face/Nose/Sinus: Normal nares present and no epistaxis Mouth: Yes moist mucous membranes Eyes: Sclera: sclerae normal Pupils: Equal, round and reactive pupils present Neck: Neck: supple and no JVD Carotids: no bruits Resp: Auscultation: crackles bilateral and lung sounds not diminished Other: No chest wall tenderness Cardio: Rate: tachycardic Rhythm: abnormal rhythm irregularly irregular Heart sounds: no gallops, no murmurs and no rubs GI: GI Palp: Yes Soft to palpation and No Tenderness to palpation present (GI) Auscultation: normal bowel sounds Skin: General skin exam: normal color, rashes and/or lesions noted and no erythema Other: Warm Neuro: Cranial nerves: Yes Equal, round and reactive pupils present Speech: normal speech Other: No obvious focal deficit or facial asymmetry Extrem: General: no edema Other: Normal capillary refills Intact distal pulses. Results Labs and Meds 02/19/24 04:10 02/19/24 04:10 Lab results: Cardiac Enzymes 02/19/24 Range/Units 04:10 AST 48 (17-59) U/L CBC 02/19/24 Range/Units 04:10 WBC 4.2 L (4.5-10.0) K/mm3 RBC 4.16 L (4.6-6.20) M/mm3 Hgb 10.8 L (14.0-18.0) g/dL Hct 36.1 L (42.0-52.0) % Plt Count 104 L (150-375) k/mm3 Lymph # (Auto) 0.23 L (0.9-3.2) K/mm3 [place] # (Auto) 0.2 (0.1-0.6) K/mm3 Eos # (Auto) 0.0 (0-0.3) K/mm3 Baso # (Auto) 0.0 (0.0-0.1) K/mm3 Comprehensive Metabolic Panel 02/19/24 Range/Units 04:10 Sodium 135 L (137-145) mmol/L Potassium 4.1 (3.4-5.0) mmol/L Chloride 97 L (98-107) mmol/L Carbon Dioxide 35 H (22-30) mmol/L BUN 27 H (9-20) mg/dL Creatinine 0.60 L (0.7-1.3) mg/dL Glucose 145 H (65-110) mg/dL Calcium 8.3 L (8.4-10.2) mg/dL AST 48 (17-59) U/L ALT 17 (6-50) U/L Alkaline Phosphatase 56 (38-126) U/L Total Protein 6.0 L (6.3-8.2) g/dL Albumin 3.0 L (3.5-5.1) g/dL Intake and Output 02/18/24 02/19/24 02/19/24 23:59 07:59 15:59 Intake Total 790 150 300 Output Total 650 450 Balance 140 -300 300 Intake: IV 350 Azithromycin 500 mg/Ns 250 ml 250 500 mg In 250 ml @ 250 mls/hr IVPB Q24H [facility] Rx#:[id number] Magnesium Sulf 2 gm/Water 50Ml 50 2 gm In 50 ml @ 25 mls/hr IVPB ONCE ONE Rx#:[id number] cefTRIAXone 1 GM/NS 50 ML 1 gm 50 In 50 ml @ 100 mls/hr IVPB Q24H [facility] Rx#:[id number] Oral 440 150 300 Output: Catheter Urine 650 450 Urethral Catheter 650 450 Patient Weight 02/19/24 23:59 Weight 83.3 kg
[2024-02-19 16:21] LABS: Glucose Point of Care 190 mg/dl (65-105)
[2024-02-19] MEDS: dilTIAZem HCL 30 MG TABLET PO (16:50)
[2024-02-19 21:37] LABS: Glucose Point of Care 179 mg/dl (65-105)
[2024-02-19] MEDS: AZITHROMYCIN 500 MG/NS 250 ML 500 MG/250 ML BAG 250 MG IVPB (23:03)
[2024-02-20] VITALS (23 sets, daily range): BP systolic 96–117; BP diastolic 64–82; PULSE 80–130; RESP 16–24; TEMP 35.4–36.8; O2SAT 92–97
[2024-02-20] MEDS: IPRATROPIUM 0.5 MG/ALBUTEROL SULFATE 2.5 MG AMPUL.NEB 3 ML INHALATION ×4 (03:05→21:15)
[2024-02-20 04:58] LABS: Basophils Percent Auto 0.2 % (0.2-1.2); Hematocrit 35.6 % (42.0-52.0); Hemoglobin 10.9 g/dL (14.0-18.0); Immature Granulocyte Absolute 0.05 K/mm3 (0.00-0.031); Immature Granulocyte Percent A 0.8 % (0-0.5); Immature Platelet Fraction Pct 5.5 % (0.9-11.2); Lymphocytes Absolute Auto 0.26 K/mm3 (0.9-3.2); Mean Corpuscular HGB Conc 30.6 g/dl (32-36); Mean Corpuscular Hemoglobin 26.5 pg (26-34); Mean Corpuscular Volume 86.4 fl (80-100); Mean Platelet Volume 10.8 fl (7.4-10.4); Monocytes Absolute Auto 0.2 K/mm3 (0.1-0.6); Monocytes Percent Auto 3.7 % (2.6-8.5); Neutrophils Percent Auto 91.3 % (45.5-73.1); Platelet Count Result 109 k/mm3 (150-375); Red Blood Count 4.12 M/mm3 (4.6-6.20); White Blood Count 6.5 K/mm3 (4.5-10.0)
[2024-02-20 05:06] LABS: Alanine Aminotransferase 19 U/L (6-50); Alkaline Phosphatase 56 U/L (38-126); Anion Gap 5 mmol/L (4-12); Aspartate Amino Transferase 49 U/L (17-59); Bilirubin,Total 0.8 mg/dL (0.2-1.3); Blood Urea Nitrogen 23 mg/dL (9-20); Carbon Dioxide 33 mmol/L (22-30); Chloride 98 mmol/L (98-107); Estimated CRCL calculation 82 ml/min; Estimated Glomerular Filt Rate > 60; Glucose 138 mg/dL (65-110); Magnesium 1.9 mg/dL (1.6-2.3); Potassium 4.2 mmol/L (3.4-5.0); Sodium 136 mmol/L (137-145)
[2024-02-20 05:26] LABS: Anisocytosis 1+; Burr Cells 1+; Ovalocytes 1+; Platelet Estimate Decreased (Adequate); Schistocytes None Seen
[2024-02-20 08:03] LABS: Glucose Point of Care 134 mg/dl (65-105)
[2024-02-20] MEDS: ACETAMINOPHEN 325 MG TABLET 650 MG PO (08:57)
[2024-02-20] MEDS: PANTOPRAZOLE 40 MG TABLET PO (08:57)
[2024-02-20] MEDS: TAMSULOSIN HCL 0.4 MG CAPSULE PO (08:57)
[2024-02-20] MEDS: FUROSEMIDE 20 MG TABLET PO (08:57)
[2024-02-20] MEDS: APIXABAN 5 MG TABLET PO ×2 (08:57→21:15)
[2024-02-20] MEDS: SIMVASTATIN 20 MG TABLET PO (08:57)
[2024-02-20] MEDS: guaiFENesin 12 HR 600 MG TABCR PO ×2 (08:58→21:15)
[2024-02-20] MEDS: dilTIAZem HCL 30 MG TABLET PO ×3 (08:58→17:14)
[2024-02-20] MEDS: atenoloL 50 MG TABLET PO (08:58)
[2024-02-20] MEDS: dexAMETHasone SOD PHOS INJ 10 MG/ML 1 ML VIAL 6 MG IV PUSH (08:58)
[2024-02-20] MEDS: polyethylene glycoL 3350 17 GM POWD.PACK PO (08:58)
[2024-02-20] MEDS: CHOLECALCIFEROL 1,000 UNITS TABLET 2000 UNITS PO (08:58)
[2024-02-20 11:27] LABS: Glucose Point of Care 201 mg/dl (65-105)
[2024-02-20] MEDS: INSULIN ASPART (*BKC) 100 UNITS/ML SUB-Q (12:05)
--- NOTE | 2024-02-20 14:01 | PM.PNCARD ---
Progress Note: A&P Assessment and Plan (1) Atrial fibrillation with rapid ventricular response: Code(s): I48.91 - Unspecified atrial fibrillation Status: Acute Plan AFib with RVR in the setting of pneumonia COVID pneumonia Chronic diastolic heart failure currently compensated Plan Continue atenolol 50 mg daily Continue Eliquis prior mg b.i.d. cont Diltiazem 30 mg TID Subjective Date/time seen: 02/20/24 14:01 Interval history: No acute events Telemetry AFib rate 100-150 Review of Systems Review of Systems: All systems reviewed & are unremarkable except as noted in HPI and below Exam Const: General: comfortable and no acute distress Other: Able to lie flat HENMT: Face/Nose/Sinus: Normal nares present and no epistaxis Mouth: Yes moist mucous membranes Eyes: Sclera: sclerae normal Pupils: Equal, round and reactive pupils present Neck: Neck: supple and no JVD Carotids: no bruits Resp: Auscultation: clear to auscultation bilaterally and lung sounds not diminished Other: No chest wall tenderness Cardio: Rate: regular rate Rhythm: regular rhythm Heart sounds: no gallops, no murmurs and no rubs GI: GI Palp: Yes Soft to palpation and No Tenderness to palpation present (GI) Auscultation: normal bowel sounds Skin: General skin exam: normal color, rashes and/or lesions noted and no erythema Other: Warm Neuro: Cranial nerves: Yes Equal, round and reactive pupils present Speech: normal speech Other: No obvious focal deficit or facial asymmetry Extrem: General: no edema Other: Normal capillary refills Intact distal pulses. Objective Data Vital Signs Vital Signs: Vital Signs - 24 hr 02/19/24 16:34 02/19/24 16:00 02/19/24 16:00 Temperature 35.8 C L Pulse Rate 119 H 109 H Respiratory Rate 24 H Blood Pressure 114/71 Pulse Oximetry 92 93 Oxygen Delivery Nasal Cannula Oxygen Flow Rate 2 02/19/24 18:00 02/19/24 19:30 02/19/24 20:25 Temperature 36.2 C L Pulse Rate 141 H 117 H 107 H Respiratory Rate 20 16 Blood Pressure 129/76 Pulse Oximetry 93 Oxygen Delivery Oxygen Flow Rate 02/19/24 20:36 02/19/24 22:45 02/20/24 00:00 Temperature 36.8 C Pulse Rate 111 H 117 H 112 H Respiratory Rate 16 20 19 Blood Pressure 99/70 L Pulse Oximetry 93 97 Oxygen Delivery Nasal Cannula Oxygen Flow Rate 2 02/20/24 00:20 02/19/24 20:00 02/19/24 22:00 Temperature Pulse Rate 112 H 115 H 115 H Respiratory Rate 19 Blood Pressure Pulse Oximetry 97 Oxygen Delivery Nasal Cannula Oxygen Flow Rate 2 02/20/24 00:00 02/20/24 02:00 02/20/24 03:05 Temperature Pulse Rate 100 100 103 H Respiratory Rate 16 Blood Pressure Pulse Oximetry Oxygen Delivery Oxygen Flow Rate 02/20/24 03:15 02/20/24 04:00 02/20/24 05:02 Temperature 36.8 C Pulse Rate 105 H 112 H 112 H Respiratory Rate 16 19 19 Blood Pressure 107/70 Pulse Oximetry 94 94 Oxygen Delivery Nasal Cannula Oxygen Flow Rate 2 02/20/24 04:00 02/20/24 06:00 02/20/24 05:30 Temperature Pulse Rate 111 H 104 H 107 H Respiratory Rate 20 Blood Pressure Pulse Oximetry 92 Oxygen Delivery Nasal Cannula Oxygen Flow Rate 1 02/20/24 08:00 02/20/24 08:00 02/20/24 08:00 Temperature 35.4 C L Pulse Rate 84 80 Respiratory Rate 20 20 Blood Pressure 107/82 Pulse Oximetry 95 95 Oxygen Delivery Nasal Cannula Oxygen Flow Rate 2 02/20/24 08:58 02/20/24 09:47 02/20/24 08:00 Temperature Pulse Rate 130 H Respiratory Rate Blood Pressure Pulse Oximetry 93 Oxygen Delivery Nasal Cannula Nasal Cannula Oxygen Flow Rate 1 1 02/20/24 08:00 02/20/24 10:00 02/20/24 12:00 Temperature 36.3 C L Pulse Rate 128 H 130 H 103 H Respiratory Rate 24 H Blood Pressure 96/64 L Pulse Oximetry 92 Oxygen Delivery Oxygen Flow Rate 02/20/24 12:00 02/20/24 12:00 02/20/24 12:42 Temperature Pulse Rate 106 H Respiratory Rate Blood Pressure Pulse Oximetry 94 Oxygen Delivery Nasal Cannula Nasal Cannula Oxygen Flow Rate 1 2 Intake/Output Intake/Output: Intake & Output 02/17/24 02/18/24 02/19/24 02/20/24 23:59 23:59 23:59 23:59 Intake Total 300 1330 700 760 Output Total 650 1277 250 Balance 300 680 -577 510 Meds/Results Medications: Active Medications Generic Name Dose Route Start Last Admin Trade Name Kt PRN Reason Stop Dose Admin Acetaminophen 650 mg 02/17/24 20:59 02/20/24 08:57 Acetaminophen 325 Mg Tablet PO 650 mg Q4H PRN Administration Mild Pain (1-3) or Fever Albuterol/Ipratropium 3 ml 02/18/24 02:00 02/20/24 07:56 Ipratropium 0.5 Mg/Albuterol Sulfate 2.5 Mg Ampul.Neb 3 Ml INHALATION 3 ml Q6HRT MK Administration Apixaban 5 mg 02/18/24 09:00 02/20/24 08:57 Apixaban 5 Mg Tablet PO 5 mg Q12HR MK Administration Atenolol 50 mg 02/18/24 09:00 02/20/24 08:58 Atenolol 50 Mg Tablet PO 50 mg DAILY MK Administration Cyanocobalamin 500 mcg 02/18/24 09:00 02/18/24 09:52 Cyanocobalamin 500 Mcg Tablet PO 500 mcg MoWeFr MK Administration Dexamethasone Sodium Phosphate 6 mg 02/18/24 05:00 02/20/24 08:58 Dexamethasone Sod Phos Inj 10 Mg/Ml 1 Ml Vial IV PUSH 02/27/24 09:01 6 mg DAILY MK Administration Dextrose 12.5 gm 02/18/24 04:18 Dextrose 50% 25 Gm/50 Ml Syringe IV PUSH PRN PRN Hypoglycemia Protocol Diltiazem HCl 30 mg 02/19/24 17:00 02/20/24 12:04 Diltiazem Hcl 30 Mg Tablet PO 30 mg TID MK Administration Furosemide 20 mg 02/18/24 09:00 02/20/24 08:57 Furosemide 20 Mg Tablet PO 20 mg DAILY MK Administration Glucagon 1 mg 02/18/24 04:18 Glucagon For Inj 1 Mg Vial IM PRN PRN Hypoglycemia Protocol Glucose 15 gm 02/18/24 04:18 Glucose Oral Gel 15 Gm Of Glucse In 37.5 Gm Tube PO PRN PRN Hypoglycemia Protocol Guaifenesin 600 mg 02/19/24 10:45 02/20/24 08:58 Guaifenesin 12 Hr 600 Mg Tabcr PO 02/26/24 10:44 600 mg Q12HR MK Administration Ceftriaxone Sodium 1 gm in 50 mls @ 100 mls/hr 02/18/24 21:00 12/07/24 23:33 Rocephin 1 Gm/Ns 50 Ml IVPB Infused Q24H MK Infusion Azithromycin 500 mg in 250 mls @ 250 mls/hr 02/18/24 22:00 02/20/24 00:03 Zithromax IVPB Infused Q24H MK Infusion Dextrose 1,000 mls @ 100 mls/hr 02/18/24 04:18 Dextrose 5% 1,000 Ml IVPB PRN PRN Hypoglycemia Protocol Insulin Aspart 2 - 5 units 02/18/24 08:00 02/20/24 12:05 Insulin Aspart (*Bkc) 100 Units/Ml SUB-Q 2 units TIDWM MK Administration Protocol Insulin Aspart 1 - 2 units 02/18/24 21:00 02/19/24 22:42 Insulin Aspart (*Bkc) 100 Units/Ml SUB-Q Not Given HS MK Protocol Pantoprazole Sodium 40 mg 02/18/24 09:00 02/20/24 08:57 Pantoprazole 40 Mg Tablet PO 40 mg QAM MK Administration Polyethylene Glycol 17 gm 02/19/24 10:55 02/20/24 08:58 Polyethylene Glycol 3350 17 Gm Powd.Pack PO 17 gm QAM MK Administration Simvastatin 20 mg 02/18/24 09:00 02/20/24 08:57 Simvastatin 20 Mg Tablet PO 20 mg DAILY MK Administration Tamsulosin HCl 0.4 mg 02/18/24 09:00 02/20/24 08:57 Tamsulosin Hcl 0.4 Mg Capsule PO 0.4 mg DAILY MK Administration Temazepam 15 mg 02/17/24 22:17 02/18/24 21:58 Temazepam (*Crx) 15 Mg Capsule PO 15 mg QHS PRN Administration sleep Vitamin D 2,000 units 02/18/24 09:00 02/20/24 08:58 Cholecalciferol 1,000 Units Tablet PO 2,000 units DAILY MK Administration Radiology Results: ITS Impressions Head CT 02/17/24 15:18 IMPRESSION: 1. Stable moderate nonspecific cerebral white matter disease, which likely represents chronic small vessel ischemic disease. Chest X-Ray 02/17/24 15:26 Impression: 1: Bibasilar airspace disease, compatible with pneumonia. Labs Labs: Laboratory Results - last 24 hr 02/19/24 02/19/24 02/20/24 16:06 21:10 04:25 WBC 6.5 RBC 4.12 L Hgb 10.9 L Hct 35.6 L MCV 86.4 MCH 26.5 MCHC 30.6 L RDW 17.0 H Plt Count 109 L MPV 10.8 H Immature Gran % (Auto) 0.8 H Neut % (Auto) 91.3 H Lymph % (Auto) 4.0 L [place] % (Auto) 3.7 Eos % (Auto) 0.0 Baso % (Auto) 0.2 Lymph # (Auto) 0.26 L [place] # (Auto) 0.2 Eos # (Auto) 0.0 Baso # (Auto) 0.0 Abs Immat Gran (auto) 0.05 H Absolute Neuts (auto) 6.0 Absolute Nucleated RBC 0.000 Nucleated RBC % 0.0 Platelet Estimate Decreased % Immature Plt Fraction 5.5 Anisocytosis 1+ Ovalocytes 1+ [place] Cells 1+ Schistocytes None seen Sodium 136 L Potassium 4.2 Chloride 98 Carbon Dioxide 33 H Anion Gap 5 BUN 23 H Creatinine 0.60 L Estim Creat Clear Calc 82 Estimated GFR > 60 Glucose 138 H POC Capillary Glucose 190 H 179 H Calcium 8.0 L Magnesium 1.9 Total Bilirubin 0.8 AST 49 ALT 19 Alkaline Phosphatase 56 Total Protein 6.0 L Albumin 3.0 L 02/20/24 02/20/24 07:54 11:02 WBC RBC Hgb Hct MCV MCH MCHC RDW Plt Count MPV Immature Gran % (Auto) Neut % (Auto) Lymph % (Auto) [place] % (Auto) Eos % (Auto) Baso % (Auto) Lymph # (Auto) [place] # (Auto) Eos # (Auto) Baso # (Auto) Abs Immat Gran (auto) Absolute Neuts (auto) Absolute Nucleated RBC Nucleated RBC % Platelet Estimate % Immature Plt Fraction Anisocytosis Ovalocytes [place] Cells Schistocytes Sodium Potassium Chloride Carbon Dioxide Anion Gap BUN Creatinine Estim Creat Clear Calc Estimated GFR Glucose POC Capillary Glucose 134 H 201 H Calcium Magnesium Total Bilirubin AST ALT Alkaline Phosphatase Total Protein Albumin
--- NOTE | 2024-02-20 15:26 | P.PNIM_ITS ---
Progress Note: A&P Assessment and Plan (1) Acute hypoxic respiratory failure: Code(s): J96.01 - Acute respiratory failure with hypoxia Status: Acute Assessment and Plan: * 02 @2 liters nasal cannula * Patient has acute hypoxic respiratory failure likely multifactorial due to bilateral lower lobe pneumonia complicating chronic COPD. * Patient does not have a home O2 requirement at baseline but is acutely hypo xic. Will wean oxygen as tolerated to maintain O2 sats between 80 92%. (2) Pneumonia: Qualifiers: Laterality: bilateral Lung location: lower lobe of lung Pneumonia type: due to unspecified organism Qualified Code(s): J18.9 - Pneumonia, unspecified organism Code(s): J18.9 - Pneumonia, unspecified organism Status: Acute Assessment and Plan: * Receiving Azithromycin 500 mg IVPB q 24 * Ceftriaxone 1 gm ivpb q 24. * 02@2LNC * Add Guaifenesin 600 mg PO BID. (3) COPD (chronic obstructive pulmonary disease): Qualifiers: COPD type: COPD with acute lower respiratory infection Qualified Code(s): J44.0 - Chronic obstructive pulmonary disease with (acute) lower respiratory infection Code(s): J44.9 - Chronic obstructive pulmonary disease, unspecified Status: Acute Assessment and Plan: * 02@2LNC. * Patient does not have a home O2 requirement at baseline but is acutely hypoxic. Will wean oxygen as tolerated to maintain O2 sats between 80 92%. * Dexamethasone 6 mg ivp daily. * Duoneb (4) SIRS due to infectious process with acute organ dysfunction: Code(s): A41.9 - Sepsis, unspecified organism; R65.20 - Severe sepsis without septic shock Status: Acute Assessment and Plan: * Blood cultures no growth to date. * The patient fit SIRS criteria with tachycardia and tachypnea. * He is currently afebrile and does not have a white count. Although does fit sepsis criteria given acute infectious process. * Patient's COVID PCR did come back positive. * Lactic acid 1.5 (5) Atrial fibrillation with rapid ventricular response: Code(s): I48.91 - Unspecified atrial fibrillation Status: Acute Assessment and Plan: * Patient's INR is 2 and is on anticoagulation with Eliquis. * Cardiac consulted and added Diltiazem 30 mg PO TID. Continue Atenolol 50 mg PO daily and Eliquis. * HR now in the mid 90's (6) Elevated troponin: Code(s): R79.89 - Other specified abnormal findings of blood chemistry Status: Acute Assessment and Plan: * Troponin 0.048>0.041>0.043>0.043. * Troponin elevation likely secondary demand to acute hypoxic respiratory failure in the setting of up regulated AFib due to underlying infection. * Patient not having chest pain to suggest acute infarct. 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 Will exchange Ewing catheter if not done so in the ER. Patient is already on empiric antibiotic therapy for pneumonia. Although again UTI is less likely given lack of symptoms. * Urine culture is pending. (9) Pneumonia due to COVID-19 virus: Code(s): U07.1 - COVID-19; J12.82 - Pneumonia due to coronavirus disease 2019 Status: Acute Assessment and Plan: * Receiving Azithromycin 500 mg IVPB q 24 * Ceftriaxone 1 gm ivpb q 24. * 02@ 2LNC (10) Hypomagnesemia: Code(s): E83.42 - Hypomagnesemia Status: Acute Assessment and Plan: * Magnesium 1.5 yesterday, patient received Magnesium Sulfate 2 gm ivpb x1. * Magnesium today 1.9. (11) Chronic indwelling Ewing catheter: Code(s): Z97.8 - Presence of other specified devices Status: Acute Assessment and Plan: * History of bladder surgery requiring ewing afterwards. Subjective Date/time seen: 02/20/24 15:26 Interval history: Patient denies chest pain, shortness of breath, palpitations, headache, or dizziness. Patient heart rate improved into mid 90's. Patient reports that he is starting to feel better and has gotten up with therapy to the chair. Review of Systems Review of Systems: All systems reviewed & are unremarkable except as noted in HPI and below Exam Const: General: comfortable and no acute distress Eyes: Sclera: sclerae normal Resp: Effort & Inspection: normal respiratory effort Auscultation: clear to auscultation bilaterally Cardio: Rhythm: abnormal rhythm (Afib 98) irregularly irregular GI: GI Palp: Yes Soft to palpation Auscultation: normal bowel sounds Skin: General skin exam: no rashes or lesions noted Neuro: Speech: normal speech Psych: Mental Status: mental status grossly normal Affect: normal affect Objective Data Vital Signs Vital Signs: Vital Signs - 24 hr 02/19/24 16:34 02/19/24 16:00 02/19/24 16:00 Temperature 96.5 F L Pulse Rate 119 H 109 H Respiratory Rate 24 H Blood Pressure 114/71 Pulse Oximetry 92 93 Oxygen Delivery Nasal Cannula Oxygen Flow Rate 2 02/19/24 18:00 02/19/24 19:30 02/19/24 20:25 Temperature 97.2 F L Pulse Rate 141 H 117 H 107 H Respiratory Rate 20 16 Blood Pressure 129/76 Pulse Oximetry 93 Oxygen Delivery Oxygen Flow Rate 02/19/24 20:36 02/19/24 22:45 02/20/24 00:00 Temperature 98.2 F Pulse Rate 111 H 117 H 112 H Respiratory Rate 16 20 19 Blood Pressure 99/70 L Pulse Oximetry 93 97 Oxygen Delivery Nasal Cannula Oxygen Flow Rate 2 02/20/24 00:20 02/19/24 20:00 02/19/24 22:00 Temperature Pulse Rate 112 H 115 H 115 H Respiratory Rate 19 Blood Pressure Pulse Oximetry 97 Oxygen Delivery Nasal Cannula Oxygen Flow Rate 2 02/20/24 00:00 02/20/24 02:00 02/20/24 03:05 Temperature Pulse Rate 100 100 103 H Respiratory Rate 16 Blood Pressure Pulse Oximetry Oxygen Delivery Oxygen Flow Rate 02/20/24 03:15 02/20/24 04:00 02/20/24 05:02 Temperature 98.3 F Pulse Rate 105 H 112 H 112 H Respiratory Rate 16 19 19 Blood Pressure 107/70 Pulse Oximetry 94 94 Oxygen Delivery Nasal Cannula Oxygen Flow Rate 2 02/20/24 04:00 02/20/24 06:00 02/20/24 05:30 Temperature Pulse Rate 111 H 104 H 107 H Respiratory Rate 20 Blood Pressure Pulse Oximetry 92 Oxygen Delivery Nasal Cannula Oxygen Flow Rate 1 02/20/24 08:00 02/20/24 08:00 02/20/24 08:00 Temperature 95.8 F L Pulse Rate 84 80 Respiratory Rate 20 20 Blood Pressure 107/82 Pulse Oximetry 95 95 Oxygen Delivery Nasal Cannula Oxygen Flow Rate 2 02/20/24 08:58 02/20/24 09:47 02/20/24 08:00 Temperature Pulse Rate 130 H Respiratory Rate Blood Pressure Pulse Oximetry 93 Oxygen Delivery Nasal Cannula Nasal Cannula Oxygen Flow Rate 1 1 02/20/24 08:00 02/20/24 10:00 02/20/24 12:00 Temperature 97.4 F L Pulse Rate 128 H 130 H 103 H Respiratory Rate 24 H Blood Pressure 96/64 L Pulse Oximetry 92 Oxygen Delivery Oxygen Flow Rate 02/20/24 12:00 02/20/24 12:00 02/20/24 12:42 Temperature Pulse Rate 106 H Respiratory Rate Blood Pressure Pulse Oximetry 94 Oxygen Delivery Nasal Cannula Nasal Cannula Oxygen Flow Rate 1 2 02/20/24 14:31 02/20/24 14:45 Temperature Pulse Rate 97 91 Respiratory Rate 18 18 Blood Pressure Pulse Oximetry Oxygen Delivery Oxygen Flow Rate Intake/Output Intake/Output: Intake & Output 02/17/24 02/18/24 02/19/24 02/20/24 23:59 23:59 23:59 23:59 Intake Total 300 1330 700 760 Output Total 650 1277 250 Balance 300 680 -577 510 Meds/Results Medications: Active Medications Generic Name Dose Route Start Last Admin Trade Name Freq PRN Reason Stop Dose Admin Acetaminophen 650 mg 02/17/24 20:59 02/20/24 08:57 Acetaminophen 325 Mg Tablet PO 650 mg Q4H PRN Administration Mild Pain (1-3) or Fever Albuterol/Ipratropium 3 ml 02/18/24 02:00 02/20/24 14:30 Ipratropium 0.5 Mg/Albuterol Sulfate 2.5 Mg Ampul.Neb 3 Ml INHALATION 3 ml Q6HRT MK Administration Apixaban 5 mg 02/18/24 09:00 02/20/24 08:57 Apixaban 5 Mg Tablet PO 5 mg Q12HR MK Administration Atenolol 50 mg 02/18/24 09:00 02/20/24 08:58 Atenolol 50 Mg Tablet PO 50 mg DAILY MK Administration Cyanocobalamin 500 mcg 02/18/24 09:00 02/18/24 09:52 Cyanocobalamin 500 Mcg Tablet PO 500 mcg MoWeFr MK Administration Dexamethasone Sodium Phosphate 6 mg 02/18/24 05:00 02/20/24 08:58 Dexamethasone Sod Phos Inj 10 Mg/Ml 1 Ml Vial IV PUSH 02/27/24 09:01 6 mg DAILY MK Administration Dextrose 12.5 gm 02/18/24 04:18 Dextrose 50% 25 Gm/50 Ml Syringe IV PUSH PRN PRN Hypoglycemia Protocol Diltiazem HCl 30 mg 02/19/24 17:00 02/20/24 12:04 Diltiazem Hcl 30 Mg Tablet PO 30 mg TID MK Administration Furosemide 20 mg 02/18/24 09:00 02/20/24 08:57 Furosemide 20 Mg Tablet PO 20 mg DAILY MK Administration Glucagon 1 mg 02/18/24 04:18 Glucagon For Inj 1 Mg Vial IM PRN PRN Hypoglycemia Protocol Glucose 15 gm 02/18/24 04:18 Glucose Oral Gel 15 Gm Of Glucse In 37.5 Gm Tube PO PRN PRN Hypoglycemia Protocol Guaifenesin 600 mg 02/19/24 10:45 02/20/24 08:58 Guaifenesin 12 Hr 600 Mg Tabcr PO 02/26/24 10:44 600 mg Q12HR MK Administration Ceftriaxone Sodium 1 gm in 50 mls @ 100 mls/hr 02/18/24 21:00 02/19/24 23:33 Rocephin 1 Gm/Ns 50 Ml IVPB Infused Q24H MK Infusion Azithromycin 500 mg in 250 mls @ 250 mls/hr 02/18/24 22:00 02/20/24 00:03 Zithromax IVPB Infused Q24H MK Infusion Dextrose 1,000 mls @ 100 mls/hr 02/18/24 04:18 Dextrose 5% 1,000 Ml IVPB PRN PRN Hypoglycemia Protocol Insulin Aspart 2 - 5 units 02/18/24 08:00 02/20/24 12:05 Insulin Aspart (*Bkc) 100 Units/Ml SUB-Q 2 units TIDWM MK Administration Protocol Insulin Aspart 1 - 2 units 02/18/24 21:00 02/19/24 22:42 Insulin Aspart (*Bkc) 100 Units/Ml SUB-Q Not Given HS MK Protocol Pantoprazole Sodium 40 mg 02/18/24 09:00 02/20/24 08:57 Pantoprazole 40 Mg Tablet PO 40 mg QAM MK Administration Polyethylene Glycol 17 gm 02/19/24 10:55 02/20/24 08:58 Polyethylene Glycol 3350 17 Gm Powd.Pack PO 17 gm QAM MK Administration Simvastatin 20 mg 02/18/24 09:00 02/20/24 08:57 Simvastatin 20 Mg Tablet PO 20 mg DAILY MK Administration Tamsulosin HCl 0.4 mg 02/18/24 09:00 02/20/24 08:57 Tamsulosin Hcl 0.4 Mg Capsule PO 0.4 mg DAILY MK Administration Temazepam 15 mg 02/17/24 22:17 02/18/24 21:58 Temazepam (*Crx) 15 Mg Capsule PO 15 mg QHS PRN Administration sleep Vitamin D 2,000 units 02/18/24 09:00 02/20/24 08:58 Cholecalciferol 1,000 Units Tablet PO 2,000 units DAILY MK Administration Radiology Results: ITS Impressions Head CT 02/17/24 15:18 IMPRESSION: 1. Stable moderate nonspecific cerebral white matter disease, which likely represents chronic small vessel ischemic disease. Chest X-Ray 02/17/24 15:26 Impression: 1: Bibasilar airspace disease, compatible with pneumonia. Labs Labs: Laboratory Results - last 24 hr 02/19/24 02/19/24 02/20/24 16:06 21:10 04:25 WBC 6.5 RBC 4.12 L Hgb 10.9 L Hct 35.6 L MCV 86.4 MCH 26.5 MCHC 30.6 L RDW 17.0 H Plt Count 109 L MPV 10.8 H Immature Gran % (Auto) 0.8 H Neut % (Auto) 91.3 H Lymph % (Auto) 4.0 L [place] % (Auto) 3.7 Eos % (Auto) 0.0 Baso % (Auto) 0.2 Lymph # (Auto) 0.26 L [place] # (Auto) 0.2 Eos # (Auto) 0.0 Baso # (Auto) 0.0 Abs Immat Gran (auto) 0.05 H Absolute Neuts (auto) 6.0 Absolute Nucleated RBC 0.000 Nucleated RBC % 0.0 Platelet Estimate Decreased % Immature Plt Fraction 5.5 Anisocytosis 1+ Ovalocytes 1+ [place] Cells 1+ Schistocytes None seen Sodium 136 L Potassium 4.2 Chloride 98 Carbon Dioxide 33 H Anion Gap 5 BUN 23 H Creatinine 0.60 L Estim Creat Clear Calc 82 Estimated GFR > 60 Glucose 138 H POC Capillary Glucose 190 H 179 H Calcium 8.0 L Magnesium 1.9 Total Bilirubin 0.8 AST 49 ALT 19 Alkaline Phosphatase 56 Total Protein 6.0 L Albumin 3.0 L 02/20/24 02/20/24 07:54 11:02 WBC RBC Hgb Hct MCV MCH MCHC RDW Plt Count MPV Immature Gran % (Auto) Neut % (Auto) Lymph % (Auto) [place] % (Auto) Eos % (Auto) Baso % (Auto) Lymph # (Auto) [place] # (Auto) Eos # (Auto) Baso # (Auto) Abs Immat Gran (auto) Absolute Neuts (auto) Absolute Nucleated RBC Nucleated RBC % Platelet Estimate % Immature Plt Fraction Anisocytosis Ovalocytes [place] Cells Schistocytes Sodium Potassium Chloride Carbon Dioxide Anion Gap BUN Creatinine Estim Creat Clear Calc Estimated GFR Glucose POC Capillary Glucose 134 H 201 H Calcium Magnesium Total Bilirubin AST ALT Alkaline Phosphatase Total Protein Albumin Quality VTE Prophylaxis VTE prophylaxis: pharmacologic ordered (Continue home Eliquis)
[2024-02-20 16:13] LABS: Glucose Point of Care 150 mg/dl (65-105)
[2024-02-20 20:59] LABS: Glucose Point of Care 193 mg/dl (65-105)
[2024-02-20] MEDS: AZITHROMYCIN 500 MG/NS 250 ML 500 MG/250 ML BAG 250 MG IVPB (21:21)
[2024-02-21] VITALS (22 sets, daily range): BP systolic 107–144; BP diastolic 69–97; PULSE 94–139; RESP 16–22; TEMP 36.2–36.5; O2SAT 91–97
[2024-02-21] MEDS: TEMAZEPAM (*CRX) 15 MG CAPSULE PO ×2 (01:16→23:14)
[2024-02-21] MEDS: IPRATROPIUM 0.5 MG/ALBUTEROL SULFATE 2.5 MG AMPUL.NEB 3 ML INHALATION ×4 (01:55→19:54)
--- NOTE | 2024-02-21 03:39 | PC.NURSE ---
DR Tabor made aware that over last 90 minutes patent heart rate has gotten as high as Afib 160. Currently patient is sustaining heart rate 120-130s. Patient denies distress. blood pressure 137/85. No new orders at this time.
[2024-02-21 04:52] LABS: Basophils Percent Auto 0.3 % (0.2-1.2); Eosinophils Percent Auto 0.1 % (0-4.4); Hematocrit 34.6 % (42.0-52.0); Hemoglobin 10.9 g/dL (14.0-18.0); Immature Granulocyte Absolute 0.05 K/mm3 (0.00-0.031); Immature Granulocyte Percent A 0.7 % (0-0.5); Immature Platelet Fraction Pct 4.9 % (0.9-11.2); Lymphocytes Absolute Auto 0.22 K/mm3 (0.9-3.2); Lymphocytes Percent Auto 3.1 % (18.3-44.2); Mean Corpuscular HGB Conc 31.5 g/dl (32-36); Mean Corpuscular Hemoglobin 26.6 pg (26-34); Mean Corpuscular Volume 84.4 fl (80-100); Mean Platelet Volume 10.7 fl (7.4-10.4); Monocytes Absolute Auto 0.3 K/mm3 (0.1-0.6); Monocytes Percent Auto 3.7 % (2.6-8.5); Neutrophils Absolute Auto 6.5 K/mm3 (1.3-6.7); Neutrophils Percent Auto 92.1 % (45.5-73.1); Nucleated Red Blood Cells Perc 0.3 % (0.0-0.2); Platelet Count Result 120 k/mm3 (150-375); Red Cell Distribution Width 17.1 % (11.5-14.5); White Blood Count 7.1 K/mm3 (4.5-10.0)
[2024-02-21 05:15] LABS: Alanine Aminotransferase 22 U/L (6-50); Albumin Level 3.2 g/dL (3.5-5.1); Alkaline Phosphatase 59 U/L (38-126); Anion Gap 5 mmol/L (4-12); Aspartate Amino Transferase 52 U/L (17-59); Bilirubin,Total 0.8 mg/dL (0.2-1.3); Blood Urea Nitrogen 22 mg/dL (9-20); Calcium 8.4 mg/dL (8.4-10.2); Carbon Dioxide 34 mmol/L (22-30); Chloride 97 mmol/L (98-107); Estimated CRCL calculation 71 ml/min; Estimated Glomerular Filt Rate > 60; Glucose 137 mg/dL (65-110); Magnesium 1.9 mg/dL (1.6-2.3); Platelet Estimate Decreased (Adequate); Potassium 4.5 mmol/L (3.4-5.0); Sodium 136 mmol/L (137-145)
[2024-02-21 05:18] LABS: Anisocytosis 1+; Burr Cells 1+; Hypochromasia 1+; Ovalocytes 1+
[2024-02-21 05:19] LABS: Schistocytes None Seen
--- NOTE | 2024-02-21 07:53 | PC.NURSE ---
Dr Garduno called per patient heart rate in the 150s. Order received to give AM dose of cardizem early.
[2024-02-21 08:12] LABS: Glucose Point of Care 147 mg/dl (65-105)
[2024-02-21] MEDS: atenoloL 50 MG TABLET PO (08:20)
[2024-02-21] MEDS: PANTOPRAZOLE 40 MG TABLET PO (08:20)
[2024-02-21] MEDS: CHOLECALCIFEROL 1,000 UNITS TABLET 2000 UNITS PO (08:20)
[2024-02-21] MEDS: dilTIAZem HCL 30 MG TABLET PO ×3 (08:20→17:03)
[2024-02-21] MEDS: TAMSULOSIN HCL 0.4 MG CAPSULE PO (08:20)
[2024-02-21] MEDS: SIMVASTATIN 20 MG TABLET PO (08:20)
[2024-02-21] MEDS: APIXABAN 5 MG TABLET PO ×2 (08:21→20:57)
[2024-02-21] MEDS: dexAMETHasone SOD PHOS INJ 10 MG/ML 1 ML VIAL 6 MG IV PUSH (08:21)
[2024-02-21] MEDS: guaiFENesin 12 HR 600 MG TABCR PO ×2 (08:21→20:57)
[2024-02-21] MEDS: FUROSEMIDE 20 MG TABLET PO (08:21)
[2024-02-21] MEDS: polyethylene glycoL 3350 17 GM POWD.PACK PO (08:22)
[2024-02-21] MEDS: CYANOCOBALAMIN 500 MCG TABLET PO (08:38)
--- NOTE | 2024-02-21 09:37 | PM.PNCARD ---
Progress Note: A&P Assessment and Plan (1) Atrial fibrillation with rapid ventricular response: Code(s): I48.91 - Unspecified atrial fibrillation Status: Acute Plan AFib with RVR in the setting of pneumonia COVID pneumonia Chronic diastolic heart failure currently compensated Plan Will shift atenolol to metoprolol in hopes of better rate control Continue Eliquis prior mg b.i.d. cont Diltiazem 30 mg TID May need to consider amiodarone if rate control is difficult with the above changes Cardiology will follow along with his telemetry. Please call with questions. Subjective Date/time seen: 02/21/24 09:37 Interval history: No acute events Telemetry AFib rate 100-150 Date of service 02/21/2024: Atrial fibrillation remains poorly controlled with rate above 100 consistently, this morning running 150-160bpm. He does not feel palpitations, shortness of breath, or chest pain. Review of Systems Review of Systems: All systems reviewed & are unremarkable except as noted in HPI and below Exam Const: General: comfortable and no acute distress Other: Able to lie flat HENMT: Face/Nose/Sinus: Normal nares present and no epistaxis Mouth: Yes moist mucous membranes Eyes: Sclera: sclerae normal Pupils: Equal, round and reactive pupils present Neck: Neck: supple and no JVD Carotids: no bruits Resp: Auscultation: not clear to auscultation bilaterally, crackles bilateral and lung sounds not diminished Other: No chest wall tenderness Cardio: Rate: regular rate and tachycardic Rhythm: abnormal rhythm irregularly irregular Heart sounds: no gallops, no murmurs and no rubs GI: Auscultation: normal bowel sounds Skin: General skin exam: normal color, rashes and/or lesions noted and no erythema Other: Warm Neuro: Cranial nerves: Yes Equal, round and reactive pupils present Speech: normal speech Other: No obvious focal deficit or facial asymmetry Extrem: General: no edema Other: Normal capillary refills Intact distal pulses. Objective Data Vital Signs Vital Signs: Vital Signs - 24 hr 02/20/24 09:47 02/20/24 10:00 02/20/24 12:00 Temperature 36.3 C L Pulse Rate 130 H 103 H Respiratory Rate 24 H Blood Pressure 96/64 L Pulse Oximetry 92 Oxygen Delivery Nasal Cannula Oxygen Flow Rate 1 Fraction of Inspired Oxygen 02/20/24 12:00 02/20/24 12:00 02/20/24 12:42 Temperature Pulse Rate 106 H Respiratory Rate Blood Pressure Pulse Oximetry 94 Oxygen Delivery Nasal Cannula Nasal Cannula Oxygen Flow Rate 1 2 Fraction of Inspired Oxygen 02/20/24 14:31 02/20/24 14:45 02/20/24 16:00 Temperature 36.4 C L Pulse Rate 97 91 98 Respiratory Rate 18 18 20 Blood Pressure 116/66 Pulse Oximetry 95 Oxygen Delivery Oxygen Flow Rate Fraction of Inspired Oxygen 02/20/24 16:00 02/20/24 16:00 02/20/24 19:51 Temperature 36.2 C L Pulse Rate 99 106 H Respiratory Rate 20 Blood Pressure 104/70 Pulse Oximetry 93 94 Oxygen Delivery Nasal Cannula Oxygen Flow Rate 1 Fraction of Inspired Oxygen 02/20/24 20:00 02/20/24 21:15 02/20/24 21:25 Temperature Pulse Rate 93 93 Respiratory Rate 18 18 Blood Pressure Pulse Oximetry 93 Oxygen Delivery High Flow Nasal Cannula Oxygen Flow Rate 1 Fraction of Inspired Oxygen 02/20/24 20:00 02/20/24 22:00 02/20/24 23:54 Temperature 36.4 C Pulse Rate 109 H 108 H 108 H Respiratory Rate 20 Blood Pressure 117/72 Pulse Oximetry 92 Oxygen Delivery Oxygen Flow Rate Fraction of Inspired Oxygen 02/21/24 00:00 02/21/24 00:00 02/21/24 01:59 Temperature Pulse Rate 114 H 111 H Respiratory Rate 18 Blood Pressure Pulse Oximetry 91 Oxygen Delivery Nasal Cannula Oxygen Flow Rate 1 Fraction of Inspired Oxygen 02/20/24 21:30 02/21/24 02:00 02/21/24 03:38 Temperature 36.4 C Pulse Rate 114 H 128 H Respiratory Rate 20 Blood Pressure 137/85 Pulse Oximetry 95 94 Oxygen Delivery Nasal Cannula Oxygen Flow Rate 1 Fraction of Inspired Oxygen 02/21/24 04:00 02/21/24 04:00 02/21/24 06:00 Temperature Pulse Rate 118 H 113 H Respiratory Rate Blood Pressure Pulse Oximetry 93 Oxygen Delivery Nasal Cannula Oxygen Flow Rate 2 Fraction of Inspired Oxygen 02/21/24 07:28 02/21/24 07:28 02/21/24 07:40 Temperature Pulse Rate 122 H 125 H Respiratory Rate 20 20 Blood Pressure Pulse Oximetry 93 Oxygen Delivery Nasal Cannula Oxygen Flow Rate 0.5 Fraction of Inspired Oxygen 02/21/24 08:00 Temperature 36.2 C L Pulse Rate 139 H Respiratory Rate 20 Blood Pressure 138/97 H Pulse Oximetry 91 Oxygen Delivery Oxygen Flow Rate Fraction of Inspired Oxygen Intake/Output Intake/Output: Intake & Output 02/18/24 02/19/24 02/20/24 02/21/24 23:59 23:59 23:59 23:59 Intake Total 8727 439 4757 990 Output Total 650 1277 850 700 Balance 680 -577 320 290 Meds/Results Medications: Active Medications Generic Name Dose Route Start Last Admin Trade Name Freq PRN Reason Stop Dose Admin Acetaminophen 650 mg 02/17/24 20:59 02/20/24 08:57 Acetaminophen 325 Mg Tablet PO 650 mg Q4H PRN Administration Mild Pain (1-3) or Fever Albuterol/Ipratropium 3 ml 02/18/24 02:00 02/21/24 07:28 Ipratropium 0.5 Mg/Albuterol Sulfate 2.5 Mg Ampul.Neb 3 Ml INHALATION 3 ml Q6HRT MK Administration Apixaban 5 mg 02/18/24 09:00 02/21/24 08:21 Apixaban 5 Mg Tablet PO 5 mg Q12HR MK Administration Atenolol 50 mg 02/18/24 09:00 02/21/24 08:20 Atenolol 50 Mg Tablet PO 50 mg DAILY MK Administration Cyanocobalamin 500 mcg 02/18/24 09:00 02/21/24 08:38 Cyanocobalamin 500 Mcg Tablet PO 500 mcg MoWeFr MK Administration Dexamethasone Sodium Phosphate 6 mg 02/18/24 05:00 02/21/24 08:21 Dexamethasone Sod Phos Inj 10 Mg/Ml 1 Ml Vial IV PUSH 02/27/24 09:01 6 mg DAILY MK Administration Dextrose 12.5 gm 02/18/24 04:18 Dextrose 50% 25 Gm/50 Ml Syringe IV PUSH PRN PRN Hypoglycemia Protocol Diltiazem HCl 30 mg 02/19/24 17:00 02/21/24 08:20 Diltiazem Hcl 30 Mg Tablet PO 30 mg TID MK Administration Furosemide 20 mg 02/18/24 09:00 02/21/24 08:21 Furosemide 20 Mg Tablet PO 20 mg DAILY MK Administration Glucagon 1 mg 02/18/24 04:18 Glucagon For Inj 1 Mg Vial IM PRN PRN Hypoglycemia Protocol Glucose 15 gm 02/18/24 04:18 Glucose Oral Gel 15 Gm Of Glucse In 37.5 Gm Tube PO PRN PRN Hypoglycemia Protocol Guaifenesin 600 mg 02/19/24 10:45 02/21/24 08:21 Guaifenesin 12 Hr 600 Mg Tabcr PO 02/26/24 10:44 600 mg Q12HR MK Administration Ceftriaxone Sodium 1 gm in 50 mls @ 100 mls/hr 02/18/24 21:00 02/20/24 21:49 Rocephin 1 Gm/Ns 50 Ml IVPB Infused Q24H MK Infusion Azithromycin 500 mg in 250 mls @ 250 mls/hr 02/18/24 22:00 02/21/24 00:18 Zithromax IVPB Infused Q24H MK Infusion Dextrose 1,000 mls @ 100 mls/hr 02/18/24 04:18 Dextrose 5% 1,000 Ml IVPB PRN PRN Hypoglycemia Protocol Insulin Aspart 2 - 5 units 02/18/24 08:00 02/21/24 08:21 Insulin Aspart (*Bkc) 100 Units/Ml SUB-Q Not Given TIDWM MK Protocol Insulin Aspart 1 - 2 units 02/18/24 21:00 02/20/24 21:04 Insulin Aspart (*Bkc) 100 Units/Ml SUB-Q Not Given HS MK Protocol Pantoprazole Sodium 40 mg 02/18/24 09:00 02/21/24 08:20 Pantoprazole 40 Mg Tablet PO 40 mg QAM MK Administration Polyethylene Glycol 17 gm 02/19/24 10:55 02/21/24 08:22 Polyethylene Glycol 3350 17 Gm Powd.Pack PO 17 gm QAM MK Administration Simvastatin 20 mg 02/18/24 09:00 02/21/24 08:20 Simvastatin 20 Mg Tablet PO 20 mg DAILY MK Administration Tamsulosin HCl 0.4 mg 02/18/24 09:00 02/21/24 08:20 Tamsulosin Hcl 0.4 Mg Capsule PO 0.4 mg DAILY MK Administration Temazepam 15 mg 02/17/24 22:17 02/21/24 01:16 Temazepam (*Crx) 15 Mg Capsule PO 15 mg QHS PRN Administration sleep Vitamin D 2,000 units 02/18/24 09:00 02/21/24 08:20 Cholecalciferol 1,000 Units Tablet PO 2,000 units DAILY MK Administration Radiology Results: ITS Impressions Head CT 02/17/24 15:18 IMPRESSION: 1. Stable moderate nonspecific cerebral white matter disease, which likely represents chronic small vessel ischemic disease. Chest X-Ray 02/17/24 15:26 Impression: 1: Bibasilar airspace disease, compatible with pneumonia. Labs Labs: Laboratory Results - last 24 hr 02/20/24 02/20/24 02/20/24 11:02 16:09 20:56 WBC RBC Hgb Hct MCV MCH MCHC RDW Plt Count MPV Immature Gran % (Auto) Neut % (Auto) Lymph % (Auto) [place] % (Auto) Eos % (Auto) Baso % (Auto) Lymph # (Auto) [place] # (Auto) Eos # (Auto) Baso # (Auto) Abs Immat Gran (auto) Absolute Neuts (auto) Absolute Nucleated RBC Nucleated RBC % Platelet Estimate % Immature Plt Fraction Hypochromasia Anisocytosis Ovalocytes [place] Cells Schistocytes Sodium Potassium Chloride Carbon Dioxide Anion Gap BUN Creatinine Estim Creat Clear Calc Estimated GFR Glucose POC Capillary Glucose 201 H 150 H 193 H Calcium Magnesium Total Bilirubin AST ALT Alkaline Phosphatase Total Protein Albumin 02/21/24 02/21/24 02/21/24 04:27 04:27 07:58 WBC 7.1 RBC 4.10 L Hgb 10.9 L Hct 34.6 L MCV 84.4 MCH 26.6 MCHC 31.5 L RDW 17.1 H Plt Count 120 L MPV 10.7 H Immature Gran % (Auto) 0.7 H Neut % (Auto) 92.1 H Lymph % (Auto) 3.1 L [place] % (Auto) 3.7 Eos % (Auto) 0.1 Baso % (Auto) 0.3 Lymph # (Auto) 0.22 L [place] # (Auto) 0.3 Eos # (Auto) 0.0 Baso # (Auto) 0.0 Abs Immat Gran (auto) 0.05 H Absolute Neuts (auto) 6.5 Absolute Nucleated RBC 0.020 H Nucleated RBC % 0.3 H Platelet Estimate Decreased % Immature Plt Fraction 4.9 Hypochromasia 1+ Anisocytosis 1+ Ovalocytes 1+ [place] Cells 1+ Schistocytes None seen Sodium 136 L Potassium 4.5 Chloride 97 L Carbon Dioxide 34 H Anion Gap 5 BUN 22 H Creatinine 0.70 Estim Creat Clear Calc 71 Estimated GFR > 60 Glucose 137 H POC Capillary Glucose 147 H Calcium 8.4 Magnesium 1.9 Cancelled Total Bilirubin 0.8 AST 52 ALT 22 Alkaline Phosphatase 59 Total Protein 6.0 L Albumin 3.2 L Quality VTE Prophylaxis VTE prophylaxis: pharmacologic ordered (Continue home Eliquis)
[2024-02-21 11:44] LABS: Glucose Point of Care 156 mg/dl (65-105)
--- NOTE | 2024-02-21 12:27 | P.PNIM_ITS ---
Progress Note: A&P Assessment and Plan (1) Acute hypoxic respiratory failure: Code(s): J96.01 - Acute respiratory failure with hypoxia Status: Acute Assessment and Plan: * 02 @2 liters nasal cannula * Patient has acute hypoxic respiratory failure likely multifactorial due to bilateral lower lobe pneumonia complicating chronic COPD. * Patient does not have a home O2 requirement at baseline but is acutely hypo xic. Will wean oxygen as tolerated to maintain O2 sats between 90 92%. (2) Pneumonia: Qualifiers: Laterality: bilateral Lung location: lower lobe of lung Pneumonia type: due to unspecified organism Qualified Code(s): J18.9 - Pneumonia, unspecified organism Code(s): J18.9 - Pneumonia, unspecified organism Status: Acute Assessment and Plan: * Receiving Azithromycin 500 mg PO daily. * Ceftriaxone 1 gm ivpb q 24 switched today to Augmentin 875-125 mg 1 tab PO q12. * 02@2LNC * Guaifenesin 600 mg PO BID. (3) COPD (chronic obstructive pulmonary disease): Qualifiers: COPD type: COPD with acute lower respiratory infection Qualified Code(s): J44.0 - Chronic obstructive pulmonary disease with (acute) lower respiratory infection Code(s): J44.9 - Chronic obstructive pulmonary disease, unspecified Status: Acute Assessment and Plan: * 02@2LNC. * Patient does not have a home O2 requirement at baseline but is acutely hypoxic. Will wean oxygen as tolerated to maintain O2 sats between 80 92%. * Dexamethasone 6 mg ivp daily. * Duoneb (4) SIRS due to infectious process with acute organ dysfunction: Code(s): A41.9 - Sepsis, unspecified organism; R65.20 - Severe sepsis without septic shock Status: Acute Assessment and Plan: * Blood cultures no growth to date. * The patient fit SIRS criteria with tachycardia and tachypnea. * He is currently afebrile and does not have a white count. Although does fit sepsis criteria given acute infectious process. * Patient's COVID PCR did come back positive. * Lactic acid 1.5 (5) Atrial fibrillation with rapid ventricular response: Code(s): I48.91 - Unspecified atrial fibrillation Status: Acute Assessment and Plan: * Patient's INR is 2 and is on anticoagulation with Eliquis. * Cardiac consulted Diltiazem 30 mg PO TID. Changed Atenolol to Metoprolol 25 mg PO q8. Continue Eliquis. * HR now in the mid 90's (6) Elevated troponin: Code(s): R79.89 - Other specified abnormal findings of blood chemistry Status: Acute Assessment and Plan: * Troponin 0.048>0.041>0.043>0.043. * Troponin elevation likely secondary demand to acute hypoxic respiratory failure in the setting of up regulated AFib due to underlying infection. * Patient not having chest pain to suggest acute infarct. (7) Chronic anticoagulation: Code(s): Z79.01 - penitentiary (current) use of anticoagulants Status: Acute Assessment and Plan: * Patient is on Eliquis (8) Abnormal finding on urinalysis: Code(s): R82.90 - Unspecified abnormal findings in urine Status: Acute Assessment and Plan: * Patient has grossly abnormal paring UA but not having urinary symptoms aside darker urine than baseline which correlates with the patient's decreased oral intake. Will exchange Ewing catheter if not done so in the ER. Patient is already on empiric antibiotic therapy for pneumonia. Although again UTI is less likely given lack of symptoms. * Urine culture no growth. (9) Pneumonia due to COVID-19 virus: Code(s): U07.1 - COVID-19; J12.82 - Pneumonia due to coronavirus disease 2018 Status: Acute Assessment and Plan: * Receiving Azithromycin 500 mg PO daily. * Ceftriaxone 1 gm ivpb q 24 switched today to Augmentin 875-125 mg 1 tab PO q12. * 02@ 2LNC (10) Hypomagnesemia: Code(s): E83.42 - Hypomagnesemia Status: Acute Assessment and Plan: * stable now at 1.9 (11) Chronic indwelling Ewing catheter: Code(s): Z97.8 - Presence of other specified devices Status: Acute Assessment and Plan: * History of bladder surgery requiring ewing afterwards. Subjective Date/time seen: 02/21/24 12:27 Interval history: Patient denies chest pain, shortness of breath, palpitations, headache, or dizziness. Nurse reports that heart rate got up to 180 overnight and cardiology made medication changes. Review of Systems Review of Systems: All systems reviewed & are unremarkable except as noted in HPI and below Exam Const: General: no acute distress Eyes: Sclera: sclerae normal Resp: Effort & Inspection: normal respiratory effort Auscultation: clear to auscultation bilaterally Cardio: Rate: tachycardic Rhythm: abnormal rhythm (Afib 103) irregularly irregular GI: GI Palp: Yes Soft to palpation Auscultation: normal bowel sounds Skin: General skin exam: no rashes or lesions noted Neuro: Speech: normal speech Extrem: General: no pedal edema Psych: Mental Status: mental status grossly normal Affect: normal affect Objective Data Vital Signs Vital Signs: Vital Signs - 24 hr 02/20/24 12:42 02/20/24 14:31 02/20/24 14:45 Temperature Pulse Rate 97 91 Respiratory Rate 18 18 Blood Pressure Pulse Oximetry Oxygen Delivery Nasal Cannula Oxygen Flow Rate 2 Fraction of Inspired Oxygen 02/20/24 16:00 02/20/24 16:00 02/20/24 16:00 Temperature 97.5 F L Pulse Rate 98 99 Respiratory Rate 20 Blood Pressure 116/66 Pulse Oximetry 95 93 Oxygen Delivery Nasal Cannula Oxygen Flow Rate 1 Fraction of Inspired Oxygen 02/20/24 19:51 02/20/24 20:00 02/20/24 21:15 Temperature 97.1 F L Pulse Rate 106 H 93 Respiratory Rate 20 18 Blood Pressure 104/70 Pulse Oximetry 94 93 Oxygen Delivery High Flow Nasal Cannula Oxygen Flow Rate 1 Fraction of Inspired Oxygen 02/20/24 21:25 02/20/24 20:00 02/20/24 22:00 Temperature Pulse Rate 93 109 H 108 H Respiratory Rate 18 Blood Pressure Pulse Oximetry Oxygen Delivery Oxygen Flow Rate Fraction of Inspired Oxygen 02/20/24 23:54 02/21/24 00:00 02/21/24 00:00 Temperature 97.6 F Pulse Rate 108 H 114 H Respiratory Rate 20 Blood Pressure 117/72 Pulse Oximetry 92 91 Oxygen Delivery Nasal Cannula Oxygen Flow Rate 1 Fraction of Inspired Oxygen 02/21/24 01:59 02/20/24 21:30 02/21/24 02:00 Temperature Pulse Rate 111 H 114 H Respiratory Rate 18 Blood Pressure Pulse Oximetry 95 Oxygen Delivery Nasal Cannula Oxygen Flow Rate 1 Fraction of Inspired Oxygen 02/21/24 03:38 02/21/24 04:00 02/21/24 04:00 Temperature 97.6 F Pulse Rate 128 H 118 H Respiratory Rate 20 Blood Pressure 137/85 Pulse Oximetry 94 93 Oxygen Delivery Nasal Cannula Oxygen Flow Rate 2 Fraction of Inspired Oxygen 02/21/24 06:00 02/21/24 07:28 02/21/24 07:28 Temperature Pulse Rate 113 H 122 H Respiratory Rate 20 Blood Pressure Pulse Oximetry 93 Oxygen Delivery Nasal Cannula Oxygen Flow Rate 0.5 Fraction of Inspired Oxygen 22 02/21/24 07:40 02/21/24 08:00 02/21/24 08:00 Temperature 97.2 F L Pulse Rate 125 H 139 H Respiratory Rate 20 20 Blood Pressure 138/97 H Pulse Oximetry 91 91 Oxygen Delivery Nasal Cannula Oxygen Flow Rate 2 Fraction of Inspired Oxygen 02/21/24 08:00 02/21/24 10:00 02/21/24 11:12 Temperature 97.5 F L Pulse Rate 138 H 108 H 99 Respiratory Rate 20 Blood Pressure 107/69 Pulse Oximetry 97 Oxygen Delivery Oxygen Flow Rate Fraction of Inspired Oxygen Intake/Output Intake/Output: Intake & Output 02/18/24 02/19/24 02/20/24 02/21/24 23:59 23:59 23:59 23:59 Intake Total 6134 208 9718 990 Output Total 650 1277 850 700 Balance 680 -577 320 290 Meds/Results Medications: Active Medications Generic Name Dose Route Start Last Admin Trade Name Freq PRN Reason Stop Dose Admin Acetaminophen 650 mg 02/17/24 20:59 02/20/24 08:57 Acetaminophen 325 Mg Tablet PO 650 mg Q4H PRN Administration Mild Pain (1-3) or Fever Albuterol/Ipratropium 3 ml 02/18/24 02:00 02/21/24 07:28 Ipratropium 0.5 Mg/Albuterol Sulfate 2.5 Mg Ampul.Neb 3 Ml INHALATION 3 ml Q6HRT MK Administration Amoxicillin/Clavulanate Potassium 1 tablet 02/21/24 21:00 Amoxicillin/Clavulanate K 875-125 Mg Tab PO 02/24/24 09:01 Q12HR MK Apixaban 5 mg 02/18/24 09:00 02/21/24 08:21 Apixaban 5 Mg Tablet PO 5 mg Q12HR MK Administration Azithromycin 500 mg 02/21/24 21:00 Azithromycin 250 Mg Tablet PO 02/21/24 21:01 ONCE ONE Cyanocobalamin 500 mcg 02/18/24 09:00 02/21/24 08:38 Cyanocobalamin 500 Mcg Tablet PO 500 mcg MoWeFr MK Administration Dexamethasone Sodium Phosphate 6 mg 02/18/24 05:00 02/21/24 08:21 Dexamethasone Sod Phos Inj 10 Mg/Ml 1 Ml Vial IV PUSH 02/27/24 09:01 6 mg DAILY MK Administration Dextrose 12.5 gm 02/18/24 04:18 Dextrose 50% 25 Gm/50 Ml Syringe IV PUSH PRN PRN Hypoglycemia Protocol Diltiazem HCl 30 mg 02/19/24 17:00 02/21/24 08:20 Diltiazem Hcl 30 Mg Tablet PO 30 mg TID MK Administration Furosemide 20 mg 02/18/24 09:00 02/21/24 08:21 Furosemide 20 Mg Tablet PO 20 mg DAILY MK Administration Glucagon 1 mg 02/18/24 04:18 Glucagon For Inj 1 Mg Vial IM PRN PRN Hypoglycemia Protocol Glucose 15 gm 02/18/24 04:18 Glucose Oral Gel 15 Gm Of Glucse In 37.5 Gm Tube PO PRN PRN Hypoglycemia Protocol Guaifenesin 600 mg 02/19/24 10:45 02/21/24 08:21 Guaifenesin 12 Hr 600 Mg Tabcr PO 02/26/24 10:44 600 mg Q12HR MK Administration Dextrose 1,000 mls @ 100 mls/hr 02/18/24 04:18 Dextrose 5% 1,000 Ml IVPB PRN PRN Hypoglycemia Protocol Insulin Aspart 2 - 5 units 02/18/24 08:00 02/21/24 08:21 Insulin Aspart (*Bkc) 100 Units/Ml SUB-Q Not Given TIDWM [facility] Protocol Insulin Aspart 1 - 2 units 02/18/24 21:00 02/20/24 21:04 Insulin Aspart (*Bkc) 100 Units/Ml SUB-Q Not Given HS [facility] Protocol Metoprolol Tartrate 25 mg 02/21/24 10:00 02/21/24 11:19 Metoprolol Tartrate 25 Mg Tablet PO Not Given Q8H [facility] Metoprolol Tartrate 5 mg 02/21/24 09:50 Metoprolol Tartrate Inj 5 Mg/5 Ml Vial IV PUSH Q2H PRN Tachycardia Pantoprazole Sodium 40 mg 02/18/24 09:00 02/21/24 08:20 Pantoprazole 40 Mg Tablet PO 40 mg QAM MK Administration Polyethylene Glycol 17 gm 02/19/24 10:55 02/21/24 08:22 Polyethylene Glycol 3350 17 Gm Powd.Pack PO 17 gm QAM MK Administration Simvastatin 20 mg 02/18/24 09:00 02/21/24 08:20 Simvastatin 20 Mg Tablet PO 20 mg DAILY MK Administration Tamsulosin HCl 0.4 mg 02/18/24 09:00 02/21/24 08:20 Tamsulosin Hcl 0.4 Mg Capsule PO 0.4 mg DAILY MK Administration Temazepam 15 mg 02/17/24 22:17 02/21/24 01:16 Temazepam (*Crx) 15 Mg Capsule PO 15 mg QHS PRN Administration sleep Vitamin D 2,000 units 02/18/24 09:00 02/21/24 08:20 Cholecalciferol 1,000 Units Tablet PO 2,000 units DAILY MK Administration Radiology Results: ITS Impressions Head CT 02/17/24 15:18 IMPRESSION: 1. Stable moderate nonspecific cerebral white matter disease, which likely represents chronic small vessel ischemic disease. Chest X-Ray 02/17/24 15:26 Impression: 1: Bibasilar airspace disease, compatible with pneumonia. Labs Labs: Laboratory Results - last 24 hr 02/20/24 02/20/24 02/21/24 16:09 20:56 04:27 WBC 7.1 RBC 4.10 L Hgb 10.9 L Hct 34.6 L MCV 84.4 MCH 26.6 MCHC 31.5 L RDW 17.1 H Plt Count 120 L MPV 10.7 H Immature Gran % (Auto) 0.7 H Neut % (Auto) 92.1 H Lymph % (Auto) 3.1 L [place] % (Auto) 3.7 Eos % (Auto) 0.1 Baso % (Auto) 0.3 Lymph # (Auto) 0.22 L [place] # (Auto) 0.3 Eos # (Auto) 0.0 Baso # (Auto) 0.0 Abs Immat Gran (auto) 0.05 H Absolute Neuts (auto) 6.5 Absolute Nucleated RBC 0.020 H Nucleated RBC % 0.3 H Platelet Estimate Decreased % Immature Plt Fraction 4.9 Hypochromasia 1+ Anisocytosis 1+ Ovalocytes 1+ [place] Cells 1+ Schistocytes None seen Sodium 136 L Potassium 4.5 Chloride 97 L Carbon Dioxide 34 H Anion Gap 5 BUN 22 H Creatinine 0.70 Estim Creat Clear Calc 71 Estimated GFR > 60 Glucose 137 H POC Capillary Glucose 150 H 193 H Calcium 8.4 Magnesium 1.9 Total Bilirubin AST ALT Alkaline Phosphatase Total Protein Albumin 02/21/24 02/21/24 02/21/24 04:27 07:58 11:13 WBC RBC Hgb Hct MCV MCH MCHC RDW Plt Count MPV Immature Gran % (Auto) Neut % (Auto) Lymph % (Auto) [place] % (Auto) Eos % (Auto) Baso % (Auto) Lymph # (Auto) [place] # (Auto) Eos # (Auto) Baso # (Auto) Abs Immat Gran (auto) Absolute Neuts (auto) Absolute Nucleated RBC Nucleated RBC % Platelet Estimate % Immature Plt Fraction Hypochromasia Anisocytosis Ovalocytes [place] Cells Schistocytes Sodium Potassium Chloride Carbon Dioxide Anion Gap BUN Creatinine Estim Creat Clear Calc Estimated GFR Glucose POC Capillary Glucose 147 H 156 H Calcium Magnesium Cancelled Total Bilirubin 0.8 AST 52 ALT 22 Alkaline Phosphatase 59 Total Protein 6.0 L Albumin 3.2 L Quality VTE Prophylaxis VTE prophylaxis: pharmacologic ordered (Continue home Eliquis)
[2024-02-21 16:07] LABS: Glucose Point of Care 183 mg/dl (65-105)
[2024-02-21] MEDS: METOPROLOL TARTRATE 25 MG TABLET PO (17:03)
[2024-02-21] MEDS: AMOXICILLIN/CLAVULANATE K 875-125 MG TAB 1 TABLET PO (20:57)
[2024-02-21] MEDS: AZITHROMYCIN 250 MG TABLET 500 MG PO (20:57)
[2024-02-21 21:26] LABS: Glucose Point of Care 171 mg/dl (65-105)
[2024-02-22] VITALS (25 sets, daily range): BP systolic 122–161; BP diastolic 84–100; PULSE 95–133; RESP 18–22; TEMP 36.1–37.1; O2SAT 90–99
[2024-02-22] MEDS: METOPROLOL TARTRATE 25 MG TABLET PO ×3 (01:01→17:18)
[2024-02-22] MEDS: IPRATROPIUM 0.5 MG/ALBUTEROL SULFATE 2.5 MG AMPUL.NEB 3 ML INHALATION ×3 (01:34→13:00)
[2024-02-22 07:13] LABS: Basophils Percent Auto 0.1 % (0.2-1.2); Hematocrit 35.3 % (42.0-52.0); Hemoglobin 10.8 g/dL (14.0-18.0); Immature Granulocyte Absolute 0.05 K/mm3 (0.00-0.031); Immature Granulocyte Percent A 0.7 % (0-0.5); Immature Platelet Fraction Pct 5.2 % (0.9-11.2); Lymphocytes Absolute Auto 0.25 K/mm3 (0.9-3.2); Lymphocytes Percent Auto 3.5 % (18.3-44.2); Mean Corpuscular HGB Conc 30.6 g/dl (32-36); Mean Corpuscular Hemoglobin 26.4 pg (26-34); Mean Corpuscular Volume 86.3 fl (80-100); Mean Platelet Volume 9.9 fl (7.4-10.4); Monocytes Absolute Auto 0.3 K/mm3 (0.1-0.6); Monocytes Percent Auto 4.5 % (2.6-8.5); Neutrophils Absolute Auto 6.5 K/mm3 (1.3-6.7); Neutrophils Percent Auto 91.2 % (45.5-73.1); Nucleated Red Blood Cells Perc 0.3 % (0.0-0.2); Platelet Count Result 127 k/mm3 (150-375); Red Blood Count 4.09 M/mm3 (4.6-6.20); Red Cell Distribution Width 17.1 % (11.5-14.5); White Blood Count 7.1 K/mm3 (4.5-10.0)
[2024-02-22 08:02] LABS: Alanine Aminotransferase 27 U/L (6-50); Alkaline Phosphatase 63 U/L (38-126); Anion Gap 0 mmol/L (4-12); Aspartate Amino Transferase 53 U/L (17-59); Blood Urea Nitrogen 21 mg/dL (9-20); Calcium 8.5 mg/dL (8.4-10.2); Carbon Dioxide 39 mmol/L (22-30); Chloride 97 mmol/L (98-107); Estimated CRCL calculation 71 ml/min; Estimated Glomerular Filt Rate > 60; Glucose 133 mg/dL (65-110); Potassium 4.9 mmol/L (3.4-5.0); Sodium 136 mmol/L (137-145)
[2024-02-22 08:06] LABS: Glucose Point of Care 138 mg/dl (65-105)
[2024-02-22] MEDS: dilTIAZem HCL 30 MG TABLET PO ×2 (08:21→13:16)
[2024-02-22] MEDS: CHOLECALCIFEROL 1,000 UNITS TABLET 2000 UNITS PO (08:53)
[2024-02-22] MEDS: SIMVASTATIN 20 MG TABLET PO (08:54)
[2024-02-22] MEDS: PANTOPRAZOLE 40 MG TABLET PO (08:54)
[2024-02-22] MEDS: AMOXICILLIN/CLAVULANATE K 875-125 MG TAB 1 TABLET PO ×2 (08:54→20:55)
[2024-02-22] MEDS: FUROSEMIDE 20 MG TABLET PO (08:55)
[2024-02-22] MEDS: APIXABAN 5 MG TABLET PO ×2 (08:55→20:55)
[2024-02-22] MEDS: guaiFENesin 12 HR 600 MG TABCR PO ×2 (08:55→20:55)
[2024-02-22] MEDS: TAMSULOSIN HCL 0.4 MG CAPSULE PO (08:56)
[2024-02-22] MEDS: dexAMETHasone SOD PHOS INJ 10 MG/ML 1 ML VIAL 6 MG IV PUSH (08:56)
[2024-02-22] MEDS: polyethylene glycoL 3350 17 GM POWD.PACK PO (08:56)
[2024-02-22 11:40] LABS: Glucose Point of Care 185 mg/dl (65-105)
--- NOTE | 2024-02-22 11:48 | P.PNIM_ITS ---
Progress Note: A&P Assessment and Plan (1) Acute hypoxic respiratory failure: Code(s): J96.01 - Acute respiratory failure with hypoxia Status: Acute Assessment and Plan: * 02 @1 liters nasal cannula * Patient has acute hypoxic respiratory failure likely multifactorial due to bilateral lower lobe pneumonia complicating chronic COPD. * Patient does not have a home O2 requirement at baseline but is acutely hypo xic. Will wean oxygen as tolerated to maintain O2 sats between 90 92%. (2) Pneumonia: Qualifiers: Laterality: bilateral Lung location: lower lobe of lung Pneumonia type: due to unspecified organism Qualified Code(s): J18.9 - Pneumonia, unspecified organism Code(s): J18.9 - Pneumonia, unspecified organism Status: Acute Assessment and Plan: * Completed Azithromycin 500 mg PO daily regimen. * Continue Augmentin 875-125 mg 1 tab PO q12. * 02@1 LNC * Guaifenesin 600 mg PO BID. * Blood cultures no growth to date. (3) COPD (chronic obstructive pulmonary disease): Qualifiers: COPD type: COPD with acute lower respiratory infection Qualified Code(s): J44.0 - Chronic obstructive pulmonary disease with (acute) lower respiratory infection Code(s): J44.9 - Chronic obstructive pulmonary disease, unspecified Status: Acute Assessment and Plan: * 02@1LNC. * Patient does not have a home O2 requirement at baseline but is acutely hypoxic. Will wean oxygen as tolerated to maintain O2 sats between 90 92%. * Change Dexamethasone 6 mg PO daily. * Duoneb (4) SIRS due to infectious process with acute organ dysfunction: Code(s): A41.9 - Sepsis, unspecified organism; R65.20 - Severe sepsis without septic shock Status: Acute Assessment and Plan: * Blood cultures no growth to date. * The patient fit SIRS criteria with tachycardia and tachypnea. * He is currently afebrile and does not have a white count. Although does fit sepsis criteria given acute infectious process. * Patient's COVID PCR did come back positive. * Lactic acid 1.5 (5) Atrial fibrillation with rapid ventricular response: Code(s): I48.91 - Unspecified atrial fibrillation Status: Acute Assessment and Plan: * Patient's INR is 2 and is on anticoagulation with Eliquis. * Cardiac consulted and following Diltiazem 30 mg PO TID. Changed Atenolol to Metoprolol 25 mg PO q8. Continue Eliquis. * HR now in the mid 90's (6) Elevated troponin: Code(s): R79.89 - Other specified abnormal findings of blood chemistry Status: Acute Assessment and Plan: * Troponin 0.048>0.041>0.043>0.043. * Troponin elevation likely secondary demand to acute hypoxic respiratory failure in the setting of up regulated AFib due to underlying infection. * Patient not having chest pain to suggest acute infarct. 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 Will exchange Ewing catheter if not done so in the ER. Patient is already on empiric antibiotic therapy for pneumonia. Although again UTI is less likely given lack of symptoms. * Urine culture no growth. (9) Pneumonia due to COVID-19 virus: Code(s): U07.1 - COVID-19; J12.82 - Pneumonia due to coronavirus disease 2018 Status: Acute Assessment and Plan: * Receiving Azithromycin 500 mg PO daily. * Ceftriaxone 1 gm ivpb q 24 switched today to Augmentin 875-125 mg 1 tab PO q12. * 02@ 1LNC (10) Hypomagnesemia: Code(s): E83.42 - Hypomagnesemia Status: Acute Assessment and Plan: * stable now at 1.9 (11) Chronic indwelling Ewing catheter: Code(s): Z97.8 - Presence of other specified devices Status: Acute Assessment and Plan: * History of bladder surgery requiring ewing afterwards. Subjective Date/time seen: 02/22/24 11:48 Interval history: Patient denies chest pain, palpitations, headache, dizziness, nausea, or vomiting. Patient sitting up in the bed. Review of Systems Review of Systems: All systems reviewed & are unremarkable except as noted in HPI and below Exam Const: General: comfortable and no acute distress Eyes: Sclera: sclerae normal Resp: Effort & Inspection: normal respiratory effort Auscultation: clear to auscultation bilaterally Cardio: Rhythm: abnormal rhythm (Afib 100) irregularly irregular GI: GI Palp: Yes Soft to palpation Auscultation: normal bowel sounds Skin: General skin exam: no rashes or lesions noted Neuro: Speech: normal speech Extrem: General: no pedal edema Psych: Mental Status: mental status grossly normal Affect: normal affect Objective Data Vital Signs Vital Signs: Vital Signs - 24 hr 02/21/24 12:00 02/21/24 12:00 02/21/24 13:44 Temperature Pulse Rate 94 Respiratory Rate Blood Pressure Pulse Oximetry 93 93 Oxygen Delivery Nasal Cannula Nasal Cannula Oxygen Flow Rate 2 1 Fraction of Inspired Oxygen 02/21/24 13:44 02/21/24 13:53 02/21/24 14:00 Temperature Pulse Rate 105 H 115 H 109 H Respiratory Rate 16 16 Blood Pressure Pulse Oximetry Oxygen Delivery Oxygen Flow Rate Fraction of Inspired Oxygen 02/21/24 15:07 02/21/24 16:00 02/21/24 16:00 Temperature 97.5 F L Pulse Rate 120 H 109 H Respiratory Rate 22 H Blood Pressure 115/84 Pulse Oximetry 93 93 Oxygen Delivery Nasal Cannula Oxygen Flow Rate 2 Fraction of Inspired Oxygen 02/21/24 18:00 02/21/24 19:54 02/21/24 19:54 Temperature Pulse Rate 97 96 Respiratory Rate 16 Blood Pressure Pulse Oximetry 95 Oxygen Delivery Nasal Cannula Oxygen Flow Rate 1 Fraction of Inspired Oxygen 02/21/24 20:00 02/21/24 20:00 02/21/24 20:00 Temperature Pulse Rate 94 96 96 Respiratory Rate 16 22 H Blood Pressure Pulse Oximetry 97 Oxygen Delivery Nasal Cannula Oxygen Flow Rate 1 Fraction of Inspired Oxygen 02/21/24 20:06 02/21/24 22:00 02/22/24 00:00 Temperature 97.7 F Pulse Rate 96 96 96 Respiratory Rate 22 H 22 H Blood Pressure 144/93 H Pulse Oximetry 97 97 Oxygen Delivery Nasal Cannula Oxygen Flow Rate 1 Fraction of Inspired Oxygen 02/22/24 00:00 02/22/24 00:55 02/22/24 01:01 Temperature 98.8 F Pulse Rate 100 101 H 100 Respiratory Rate 20 Blood Pressure 160/100 H Pulse Oximetry 99 Oxygen Delivery Oxygen Flow Rate Fraction of Inspired Oxygen 02/22/24 01:36 02/22/24 01:42 02/22/24 02:00 Temperature Pulse Rate 110 H 98 107 H Respiratory Rate 18 18 Blood Pressure Pulse Oximetry Oxygen Delivery Oxygen Flow Rate Fraction of Inspired Oxygen 02/22/24 07:15 02/22/24 07:15 02/22/24 07:25 Temperature Pulse Rate 128 H 128 H 120 H Respiratory Rate 18 18 18 Blood Pressure Pulse Oximetry 99 Oxygen Delivery Nasal Cannula Oxygen Flow Rate 2 Fraction of Inspired Oxygen 02/22/24 07:56 02/22/24 08:00 02/22/24 08:00 Temperature 97 F L Pulse Rate 132 H 96 133 H Respiratory Rate 18 22 H Blood Pressure 161/98 H Pulse Oximetry 97 96 Oxygen Delivery Nasal Cannula Oxygen Flow Rate 2 Fraction of Inspired Oxygen 24 02/22/24 08:54 02/22/24 10:00 02/22/24 11:17 Temperature 97.2 F L Pulse Rate 116 H 127 H 102 H Respiratory Rate 20 Blood Pressure 122/84 Pulse Oximetry 96 Oxygen Delivery Oxygen Flow Rate Fraction of Inspired Oxygen Intake/Output Intake/Output: Intake & Output 02/19/24 02/20/24 02/21/24 02/22/24 23:59 23:59 23:59 23:59 Intake Total 700 1170 1750 120 Output Total 1923 997 2001 Balance -577 320 500 120 Meds/Results Medications: Active Medications Generic Name Dose Route Start Last Admin Trade Name Freq PRN Reason Stop Dose Admin Acetaminophen 650 mg 02/17/24 20:59 02/20/24 08:57 Acetaminophen 325 Mg Tablet PO 650 mg Q4H PRN Administration Mild Pain (1-3) or Fever Albuterol/Ipratropium 3 ml 02/18/24 02:00 02/22/24 07:15 Ipratropium 0.5 Mg/Albuterol Sulfate 2.5 Mg Ampul.Neb 3 Ml INHALATION 3 ml Q6HRT MK Administration Amoxicillin/Clavulanate Potassium 1 tablet 02/21/24 21:00 02/22/24 08:54 Amoxicillin/Clavulanate K 875-125 Mg Tab PO 02/24/24 09:01 1 tablet Q12HR MK Administration Apixaban 5 mg 02/18/24 09:00 02/22/24 08:55 Apixaban 5 Mg Tablet PO 5 mg Q12HR MK Administration Cyanocobalamin 500 mcg 02/18/24 09:00 02/21/24 08:38 Cyanocobalamin 500 Mcg Tablet PO 500 mcg MoWeFr MK Administration Dexamethasone Sodium Phosphate 6 mg 02/18/24 05:00 02/22/24 08:56 Dexamethasone Sod Phos Inj 10 Mg/Ml 1 Ml Vial IV PUSH 02/27/24 09:01 6 mg DAILY MK Administration Dextrose 12.5 gm 02/18/24 04:18 Dextrose 50% 25 Gm/50 Ml Syringe IV PUSH PRN PRN Hypoglycemia Protocol Diltiazem HCl 30 mg 02/19/24 17:00 02/22/24 08:21 Diltiazem Hcl 30 Mg Tablet PO 30 mg TID MK Administration Furosemide 20 mg 02/18/24 09:00 02/22/24 08:55 Furosemide 20 Mg Tablet PO 20 mg DAILY MK Administration Glucagon 1 mg 02/18/24 04:18 Glucagon For Inj 1 Mg Vial IM PRN PRN Hypoglycemia Protocol Glucose 15 gm 02/18/24 04:18 Glucose Oral Gel 15 Gm Of Glucse In 37.5 Gm Tube PO PRN PRN Hypoglycemia Protocol Guaifenesin 600 mg 02/19/24 10:45 02/22/24 08:55 Guaifenesin 12 Hr 600 Mg Tabcr PO 02/26/24 10:44 600 mg Q12HR MK Administration Dextrose 1,000 mls @ 100 mls/hr 02/18/24 04:18 Dextrose 5% 1,000 Ml IVPB PRN PRN Hypoglycemia Protocol Insulin Aspart 2 - 5 units 02/18/24 08:00 02/22/24 08:53 Insulin Aspart (*Bkc) 100 Units/Ml SUB-Q Not Given TIDWM MK Protocol Insulin Aspart 1 - 2 units 02/18/24 21:00 02/21/24 20:57 Insulin Aspart (*Bkc) 100 Units/Ml SUB-Q Not Given HS MK Protocol Metoprolol Tartrate 25 mg 02/21/24 10:00 02/22/24 08:54 Metoprolol Tartrate 25 Mg Tablet PO 25 mg Q8H MK Administration Metoprolol Tartrate 5 mg 02/21/24 09:50 Metoprolol Tartrate Inj 5 Mg/5 Ml Vial IV PUSH Q2H PRN Tachycardia Pantoprazole Sodium 40 mg 02/18/24 09:00 02/22/24 08:54 Pantoprazole 40 Mg Tablet PO 40 mg QAM MK Administration Polyethylene Glycol 17 gm 02/19/24 10:55 02/22/24 08:56 Polyethylene Glycol 3350 17 Gm Powd.Pack PO 17 gm QAM MK Administration Simvastatin 20 mg 02/18/24 09:00 02/22/24 08:54 Simvastatin 20 Mg Tablet PO 20 mg DAILY MK Administration Tamsulosin HCl 0.4 mg 02/18/24 09:00 02/22/24 08:56 Tamsulosin Hcl 0.4 Mg Capsule PO 0.4 mg DAILY MK Administration Temazepam 15 mg 02/17/24 22:17 02/21/24 23:14 Temazepam (*Crx) 15 Mg Capsule PO 15 mg QHS PRN Administration sleep Vitamin D 2,000 units 02/18/24 09:00 02/22/24 08:53 Cholecalciferol 1,000 Units Tablet PO 2,000 units DAILY MK Administration Radiology Results: ITS Impressions Head CT 02/17/24 15:18 IMPRESSION: 1. Stable moderate nonspecific cerebral white matter disease, which likely represents chronic small vessel ischemic disease. Chest X-Ray 02/17/24 15:26 Impression: 1: Bibasilar airspace disease, compatible with pneumonia. Labs Labs: Laboratory Results - last 24 hr 02/21/24 02/21/24 02/22/24 15:17 20:54 05:00 WBC 7.1 RBC 4.09 L Hgb 10.8 L Hct 35.3 L MCV 86.3 MCH 26.4 MCHC 30.6 L RDW 17.1 H Plt Count 127 L MPV 9.9 Immature Gran % (Auto) 0.7 H Neut % (Auto) 91.2 H Lymph % (Auto) 3.5 L [place] % (Auto) 4.5 Eos % (Auto) 0.0 Baso % (Auto) 0.1 L Lymph # (Auto) 0.25 L [place] # (Auto) 0.3 Eos # (Auto) 0.0 Baso # (Auto) 0.0 Abs Immat Gran (auto) 0.05 H Absolute Neuts (auto) 6.5 Absolute Nucleated RBC 0.020 H Nucleated RBC % 0.3 H % Immature Plt Fraction 5.2 Sodium Potassium Chloride Carbon Dioxide Anion Gap BUN Creatinine Estim Creat Clear Calc Estimated GFR Glucose POC Capillary Glucose 183 H 171 H Calcium Magnesium Total Bilirubin AST ALT Alkaline Phosphatase Total Protein Albumin 12/10/24 12/10/24 12/10/24 05:35 08:00 11:13 WBC RBC Hgb Hct MCV MCH MCHC RDW Plt Count MPV Immature Gran % (Auto) Neut % (Auto) Lymph % (Auto) [place] % (Auto) Eos % (Auto) Baso % (Auto) Lymph # (Auto) [place] # (Auto) Eos # (Auto) Baso # (Auto) Abs Immat Gran (auto) Absolute Neuts (auto) Absolute Nucleated RBC Nucleated RBC % % Immature Plt Fraction Sodium 136 L Potassium 4.9 Chloride 97 L Carbon Dioxide 39 H Anion Gap 0 L BUN 21 H Creatinine 0.70 Estim Creat Clear Calc 71 Estimated GFR > 60 Glucose 133 H POC Capillary Glucose 138 H 185 H Calcium 8.5 Magnesium 2.0 Total Bilirubin 1.0 AST 53 ALT 27 Alkaline Phosphatase 63 Total Protein 6.0 L Albumin 3.0 L Quality VTE Prophylaxis VTE prophylaxis: pharmacologic ordered (Continue home Eliquis)
[2024-02-22 17:01] LABS: Glucose Point of Care 184 mg/dl (65-105)
[2024-02-22] MEDS: dilTIAZem HCL 60 MG TABLET PO (17:12)
[2024-02-22 20:47] LABS: Glucose Point of Care 200 mg/dl (65-105)
[2024-02-22] MEDS: TEMAZEPAM (*CRX) 15 MG CAPSULE PO (22:57)
[2024-02-23] VITALS (23 sets, daily range): BP systolic 138–150; BP diastolic 80–103; PULSE 87–142; RESP 18–24; TEMP 36.4–36.6; O2SAT 87–99
[2024-02-23] MEDS: METOPROLOL TARTRATE 25 MG TABLET PO ×2 (01:33→11:46)
[2024-02-23] MEDS: IPRATROPIUM 0.5 MG/ALBUTEROL SULFATE 2.5 MG AMPUL.NEB 3 ML INHALATION ×3 (01:49→12:54)
--- NOTE | 2024-02-23 01:53 | PCRCNOTE ---
Window of time for administration has passed. See next scheduled administration.
[2024-02-23 05:28] LABS: Hematocrit 35.5 % (42.0-52.0); Immature Granulocyte Percent A 1.3 % (0-0.5); Lymphocytes Absolute Auto 0.24 K/mm3 (0.9-3.2); Lymphocytes Percent Auto 3.2 % (18.3-44.2); Mean Corpuscular Hemoglobin 26.1 pg (26-34); Mean Corpuscular Volume 84.3 fl (80-100); Monocytes Absolute Auto 0.3 K/mm3 (0.1-0.6); Neutrophils Percent Auto 91.5 % (45.5-73.1); Nucleated Red Blood Cells Perc 0.3 % (0.0-0.2); Platelet Count Result 137 k/mm3 (150-375); Red Blood Count 4.21 M/mm3 (4.6-6.20); Red Cell Distribution Width 16.9 % (11.5-14.5); White Blood Count 7.6 K/mm3 (4.5-10.0)
[2024-02-23 05:50] LABS: Alanine Aminotransferase 29 U/L (6-50); Alkaline Phosphatase 59 U/L (38-126); Anion Gap 2 mmol/L (4-12); Aspartate Amino Transferase 46 U/L (17-59); Bilirubin,Total 1.2 mg/dL (0.2-1.3); Blood Urea Nitrogen 22 mg/dL (9-20); Calcium 8.6 mg/dL (8.4-10.2); Carbon Dioxide 37 mmol/L (22-30); Chloride 97 mmol/L (98-107); Estimated CRCL calculation 71 ml/min; Estimated Glomerular Filt Rate > 60; Glucose 136 mg/dL (65-110); Potassium 4.7 mmol/L (3.4-5.0); Sodium 136 mmol/L (137-145)
[2024-02-23] MEDS: polyethylene glycoL 3350 17 GM POWD.PACK PO (08:11)
[2024-02-23] MEDS: FUROSEMIDE 20 MG TABLET PO (08:11)
[2024-02-23] MEDS: dexAMETHasone 2 MG TABLET 6 MG PO (08:11)
[2024-02-23] MEDS: TAMSULOSIN HCL 0.4 MG CAPSULE PO (08:11)
[2024-02-23] MEDS: dilTIAZem HCL 60 MG TABLET PO ×2 (08:12→14:22)
[2024-02-23] MEDS: PANTOPRAZOLE 40 MG TABLET PO (08:12)
[2024-02-23] MEDS: CHOLECALCIFEROL 1,000 UNITS TABLET 2000 UNITS PO (08:12)
[2024-02-23] MEDS: APIXABAN 5 MG TABLET PO (08:12)
[2024-02-23] MEDS: guaiFENesin 12 HR 600 MG TABCR PO (08:12)
[2024-02-23] MEDS: AMOXICILLIN/CLAVULANATE K 875-125 MG TAB 1 TABLET PO (08:12)
[2024-02-23] MEDS: CYANOCOBALAMIN 500 MCG TABLET PO (08:15)
[2024-02-23] MEDS: ACETAMINOPHEN 325 MG TABLET 650 MG PO (08:16)
[2024-02-23 08:17] LABS: Glucose Point of Care 147 mg/dl (65-105)
[2024-02-23] MEDS: DIGOXIN INJ 250 MCG/ML 2 ML AMP (*BKC) 500 MCG IV PUSH (11:46)
[2024-02-23 12:07] LABS: Glucose Point of Care 151 mg/dl (65-105)
--- NOTE | 2024-02-23 14:27 | PM.PNCARD ---
Progress Note: A&P Assessment and Plan (1) Atrial fibrillation with rapid ventricular response: Code(s): I48.91 - Unspecified atrial fibrillation Status: Acute Plan AFib with RVR in the setting of pneumonia COVID pneumonia Chronic diastolic heart failure currently compensated Plan Will most likely transition to long-acting metoprolol and diltiazem tomorrow Continue current dosage and frequency of metoprolol and diltiazem Subjective Date/time seen: 02/23/24 14:27 Interval history: No acute events Rates better controlled than yesterday; on metoprolol 25 q.8 and diltiazem t.i.d. Review of Systems Review of Systems: All systems reviewed & are unremarkable except as noted in HPI and below Exam Const: General: comfortable and no acute distress Other: Able to lie flat HENMT: Face/Nose/Sinus: Normal nares present and no epistaxis Mouth: Yes moist mucous membranes Eyes: Sclera: sclerae normal Pupils: Equal, round and reactive pupils present Neck: Neck: supple and no JVD Carotids: no bruits Resp: Auscultation: not clear to auscultation bilaterally, crackles bilateral and lung sounds not diminished Other: No chest wall tenderness Cardio: Rate: regular rate and tachycardic Rhythm: regular rhythm and abnormal rhythm irregularly irregular Heart sounds: no gallops, no murmurs and no rubs GI: Auscultation: normal bowel sounds Skin: General skin exam: normal color, rashes and/or lesions noted and no erythema Other: Warm Neuro: Cranial nerves: Yes Equal, round and reactive pupils present Speech: normal speech Other: No obvious focal deficit or facial asymmetry Extrem: General: no edema Other: Normal capillary refills Intact distal pulses. Objective Data Vital Signs Vital Signs: Vital Signs - 24 hr 02/22/24 15:34 02/22/24 16:00 02/22/24 16:00 Temperature Pulse Rate 126 H 108 H Respiratory Rate Blood Pressure Pulse Oximetry 93 93 Oxygen Delivery Room Air Room Air Oxygen Flow Rate Fraction of Inspired Oxygen 02/22/24 16:00 02/22/24 17:18 02/22/24 18:00 Temperature 36.4 C L Pulse Rate 126 H 116 H 110 H Respiratory Rate 20 Blood Pressure 146/89 H Pulse Oximetry 93 Oxygen Delivery Oxygen Flow Rate Fraction of Inspired Oxygen 02/22/24 20:00 02/22/24 20:00 02/22/24 20:00 Temperature 36.6 C Pulse Rate 100 104 H 104 H Respiratory Rate 20 20 Blood Pressure 151/99 H Pulse Oximetry 90 90 Oxygen Delivery Room Air Oxygen Flow Rate Fraction of Inspired Oxygen 02/22/24 20:10 02/22/24 22:00 02/22/24 23:12 Temperature Pulse Rate 102 H 95 Respiratory Rate 20 Blood Pressure Pulse Oximetry 95 90 Oxygen Delivery Nasal Cannula High Flow Nasal Cannula Oxygen Flow Rate 1 2 Fraction of Inspired Oxygen 02/22/24 23:12 02/22/24 23:12 02/23/24 01:33 Temperature 36.6 C Pulse Rate 95 95 100 Respiratory Rate 22 H Blood Pressure 145/88 H Pulse Oximetry 95 Oxygen Delivery Oxygen Flow Rate Fraction of Inspired Oxygen 02/23/24 01:49 02/23/24 01:59 02/23/24 02:00 Temperature Pulse Rate 111 H 103 H 100 Respiratory Rate 18 18 Blood Pressure Pulse Oximetry Oxygen Delivery Oxygen Flow Rate Fraction of Inspired Oxygen 02/23/24 04:00 02/23/24 04:00 02/23/24 05:32 Temperature 36.6 C Pulse Rate 100 100 112 H Respiratory Rate 18 22 H Blood Pressure 138/80 Pulse Oximetry 95 99 Oxygen Delivery Nasal Cannula Oxygen Flow Rate 2 Fraction of Inspired Oxygen 02/23/24 05:59 02/23/24 07:05 02/23/24 07:06 Temperature Pulse Rate 108 H 126 H Respiratory Rate 22 H Blood Pressure Pulse Oximetry 97 Oxygen Delivery Nasal Cannula Oxygen Flow Rate 2 Fraction of Inspired Oxygen 02/23/24 07:14 02/23/24 08:00 02/23/24 08:00 Temperature 36.4 C L Pulse Rate 129 H 142 H Respiratory Rate 22 H 24 H Blood Pressure 150/103 H Pulse Oximetry 97 96 Oxygen Delivery Nasal Cannula Oxygen Flow Rate 1 Fraction of Inspired Oxygen 02/23/24 08:00 02/23/24 10:00 02/23/24 11:11 Temperature 36.4 C L Pulse Rate 131 H 105 H 104 H Respiratory Rate 20 Blood Pressure 140/86 Pulse Oximetry 94 Oxygen Delivery Oxygen Flow Rate Fraction of Inspired Oxygen 02/23/24 11:46 02/23/24 11:46 02/23/24 12:00 Temperature Pulse Rate 92 92 Respiratory Rate Blood Pressure Pulse Oximetry 94 Oxygen Delivery Nasal Cannula Oxygen Flow Rate 1 Fraction of Inspired Oxygen 02/23/24 12:00 02/23/24 12:56 02/23/24 13:03 Temperature Pulse Rate 102 H 91 91 Respiratory Rate 18 18 Blood Pressure Pulse Oximetry Oxygen Delivery Oxygen Flow Rate Fraction of Inspired Oxygen 02/23/24 13:30 02/23/24 13:35 02/23/24 13:40 Temperature Pulse Rate 88 109 H 110 H Respiratory Rate Blood Pressure Pulse Oximetry 90 87 L 88 L Oxygen Delivery Room Air Room Air Nasal Cannula Oxygen Flow Rate 1 Fraction of Inspired Oxygen 02/23/24 13:45 02/23/24 14:00 Temperature Pulse Rate 108 H 87 Respiratory Rate Blood Pressure Pulse Oximetry 91 90 Oxygen Delivery Nasal Cannula Room Air Oxygen Flow Rate 2 Fraction of Inspired Oxygen Intake/Output Intake/Output: Intake & Output 02/20/24 02/21/24 02/22/24 02/23/24 23:59 23:59 23:59 23:59 Intake Total 1170 1750 1450 1700 Output Total 850 1250 825 700 Balance 320 414 254 3820 Meds/Results Medications: Active Medications Generic Name Dose Route Start Last Admin Trade Name Freq PRN Reason Stop Dose Admin Acetaminophen 650 mg 02/17/24 20:59 02/23/24 08:16 Acetaminophen 325 Mg Tablet PO 650 mg Q4H PRN Administration Mild Pain (1-3) or Fever Albuterol/Ipratropium 3 ml 02/18/24 02:00 02/23/24 12:54 Ipratropium 0.5 Mg/Albuterol Sulfate 2.5 Mg Ampul.Neb 3 Ml INHALATION 3 ml Q6HRT MK Administration Amoxicillin/Clavulanate Potassium 1 tablet 02/21/24 21:00 02/23/24 08:12 Amoxicillin/Clavulanate K 875-125 Mg Tab PO 02/24/24 09:01 1 tablet Q12HR MK Administration Apixaban 5 mg 02/18/24 09:00 02/23/24 08:12 Apixaban 5 Mg Tablet PO 5 mg Q12HR MK Administration Cyanocobalamin 500 mcg 02/18/24 09:00 02/23/24 08:15 Cyanocobalamin 500 Mcg Tablet PO 500 mcg MoWeFr MK Administration Dexamethasone 6 mg 02/23/24 08:00 02/23/24 08:11 Dexamethasone 2 Mg Tablet PO 02/27/24 08:01 6 mg DAILY@0800 MK Administration Dextrose 12.5 gm 02/18/24 04:18 Dextrose 50% 25 Gm/50 Ml Syringe IV PUSH PRN PRN Hypoglycemia Protocol Diltiazem HCl 60 mg 02/22/24 17:00 02/23/24 14:22 Diltiazem Hcl 60 Mg Tablet PO 60 mg TID MK Administration Furosemide 20 mg 02/18/24 09:00 02/23/24 08:11 Furosemide 20 Mg Tablet PO 20 mg DAILY MK Administration Glucagon 1 mg 02/18/24 04:18 Glucagon For Inj 1 Mg Vial IM PRN PRN Hypoglycemia Protocol Glucose 15 gm 02/18/24 04:18 Glucose Oral Gel 15 Gm Of Glucse In 37.5 Gm Tube PO PRN PRN Hypoglycemia Protocol Guaifenesin 600 mg 02/19/24 10:45 02/23/24 08:12 Guaifenesin 12 Hr 600 Mg Tabcr PO 02/26/24 10:44 600 mg Q12HR MK Administration Dextrose 1,000 mls @ 100 mls/hr 02/18/24 04:18 Dextrose 5% 1,000 Ml IVPB PRN PRN Hypoglycemia Protocol Insulin Aspart 2 - 5 units 02/18/24 08:00 02/23/24 11:46 Insulin Aspart (*Bkc) 100 Units/Ml SUB-Q Not Given TIDWM MK Protocol Insulin Aspart 1 - 2 units 02/18/24 21:00 02/22/24 20:55 Insulin Aspart (*Bkc) 100 Units/Ml SUB-Q Not Given HS MK Protocol Metoprolol Tartrate 25 mg 02/21/24 10:00 02/23/24 11:46 Metoprolol Tartrate 25 Mg Tablet PO 25 mg Q8H MK Administration Metoprolol Tartrate 5 mg 02/21/24 09:50 Metoprolol Tartrate Inj 5 Mg/5 Ml Vial IV PUSH Q2H PRN Tachycardia Pantoprazole Sodium 40 mg 02/18/24 09:00 02/23/24 08:12 Pantoprazole 40 Mg Tablet PO 40 mg QAM MK Administration Polyethylene Glycol 17 gm 02/19/24 10:55 02/23/24 08:11 Polyethylene Glycol 3350 17 Gm Powd.Pack PO 17 gm QAM MK Administration Simvastatin 20 mg 02/18/24 09:00 12/10/24 08:54 Simvastatin 20 Mg Tablet PO 20 mg DAILY MK Administration Tamsulosin HCl 0.4 mg 02/18/24 09:00 02/23/24 08:11 Tamsulosin Hcl 0.4 Mg Capsule PO 0.4 mg DAILY MK Administration Temazepam 15 mg 02/17/24 22:17 02/22/24 22:57 Temazepam (*Crx) 15 Mg Capsule PO 15 mg QHS PRN Administration sleep Vitamin D 2,000 units 02/18/24 09:00 02/23/24 08:12 Cholecalciferol 1,000 Units Tablet PO 2,000 units DAILY MK Administration Radiology Results: ITS Impressions Head CT 02/17/24 15:18 IMPRESSION: 1. Stable moderate nonspecific cerebral white matter disease, which likely represents chronic small vessel ischemic disease. Chest X-Ray 02/17/24 15:26 Impression: 1: Bibasilar airspace disease, compatible with pneumonia. Labs Labs: Laboratory Results - last 24 hr 02/22/24 02/22/24 02/23/24 16:49 20:02 04:41 WBC 7.6 RBC 4.21 L Hgb 11.0 L Hct 35.5 L MCV 84.3 MCH 26.1 MCHC 31.0 L RDW 16.9 H Plt Count 137 L MPV 10.0 Immature Gran % (Auto) 1.3 H Neut % (Auto) 91.5 H Lymph % (Auto) 3.2 L [place] % (Auto) 4.0 Eos % (Auto) 0.0 Baso % (Auto) 0.0 L Lymph # (Auto) 0.24 L [place] # (Auto) 0.3 Eos # (Auto) 0.0 Baso # (Auto) 0.0 Abs Immat Gran (auto) 0.10 H Absolute Neuts (auto) 7.0 H Absolute Nucleated RBC 0.020 H Nucleated RBC % 0.3 H Sodium 136 L Potassium 4.7 Chloride 97 L Carbon Dioxide 37 H Anion Gap 2 L BUN 22 H Creatinine 0.70 Estim Creat Clear Calc 71 Estimated GFR > 60 Glucose 136 H POC Capillary Glucose 184 H 200 H Calcium 8.6 Total Bilirubin 1.2 AST 46 ALT 29 Alkaline Phosphatase 59 Total Protein 6.0 L Albumin 3.0 L 02/23/24 02/23/24 08:09 11:17 WBC RBC Hgb Hct MCV MCH MCHC RDW Plt Count MPV Immature Gran % (Auto) Neut % (Auto) Lymph % (Auto) [place] % (Auto) Eos % (Auto) Baso % (Auto) Lymph # (Auto) [place] # (Auto) Eos # (Auto) Baso # (Auto) Abs Immat Gran (auto) Absolute Neuts (auto) Absolute Nucleated RBC Nucleated RBC % Sodium Potassium Chloride Carbon Dioxide Anion Gap BUN Creatinine Estim Creat Clear Calc Estimated GFR Glucose POC Capillary Glucose 147 H 151 H Calcium Total Bilirubin AST ALT Alkaline Phosphatase Total Protein Albumin
--- NOTE | 2024-02-23 14:28 | HOMEO2EVAL ---
Evaluation was performed at [facility] Home Oxygen Evaluation RC: Home Oxygen (O2) Evaluation Start: 02/23/24 13:59 Freq: ONCE Status: Active Protocol: RPE Activity Type Activity Date Activity User E-sign Co-sign Detail Recorded Client Recorded Date Recorded By Document 02/23/24 13:30 [email or web address] [email or web address] 02/23/24 14:12 DJO Document 02/23/24 13:35 [email or web address] [email or web address] 02/23/24 14:12 DJO Document 02/23/24 13:40 [email or web address] [email or web address] 02/23/24 14:12 DJO Document 02/23/24 13:45 [email or web address] [email or web address] 02/23/24 14:12 DJO Document 02/23/24 14:00 [email or web address] [email or web address] 02/23/24 14:12 DJO 02/23/24 02/23/24 02/23/24 13:30 13:35 13:40 Home O2 Evaluation [Oxygen] -Test Phase Resting Exercise Exercise -Oxygen Delivery Room Air Room Air Nasal Cannula -Oxygen Flow Rate (L/min) 1 [Pulse Oximetry] -Pulse Oximetry (90-100 %) 90 87 L 88 L [Pulse Rate] -Pulse Rate (60-100 beats/min) 88 109 H 110 H [Evaluation] -Activity Tolerance [Charges] -Evaluation Charges O2 Evaluation by Pulmonary 02/23/24 02/23/24 13:45 14:00 Home O2 Evaluation [Oxygen] -Test Phase Exercise Resting -Oxygen Delivery Nasal Cannula Room Air -Oxygen Flow Rate (L/min) 2 [Pulse Oximetry] -Pulse Oximetry (90-100 %) 91 90 [Pulse Rate] -Pulse Rate (60-100 beats/min) 108 H 87 [Evaluation] -Activity Tolerance Fair [Charges] -Evaluation Charges
--- NOTE | 2024-02-23 14:41 | P.DS_ITS ---
DS: Admitting Diagnosis Discharge Date 02/23/2024 Admitting Diagnosis Generalized Weakness DS: Discharge Diagnosis Discharge Diagnosis (1) Acute hypoxic respiratory failure: Code(s): J96.01 - Acute respiratory failure with hypoxia Status: Acute Assessment and Plan: * 02 @1 liters nasal cannula * Patient has acute hypoxic respiratory failure likely multifactorial due to bilateral lower lobe pneumonia complicating chronic COPD. * Patient does not have a home O2 requirement at baseline but is acutely hypoxic. Will wean oxygen as tolerated to maintain O2 sats between 90 92%. (2) Pneumonia: Qualifiers: Laterality: bilateral Lung location: lower lobe of lung Pneumonia type: due to unspecified organism Qualified Code(s): J18.9 - Pneumonia, unspecified organism Code(s): J18.9 - Pneumonia, unspecified organism Status: Acute Assessment and Plan: * Completed Azithromycin 500 mg PO daily regimen. * Continue Augmentin 875-125 mg 1 tab PO q12. * 02@1 LNC * Guaifenesin 600 mg PO BID. * Blood cultures no growth to date. (3) COPD (chronic obstructive pulmonary disease): Qualifiers: COPD type: COPD with acute lower respiratory infection Qualified Code(s): J44.0 - Chronic obstructive pulmonary disease with (acute) lower respiratory infection Code(s): J44.9 - Chronic obstructive pulmonary disease, unspecified Status: Acute Assessment and Plan: * 02@1LNC. * Patient does not have a home O2 requirement at baseline but is acutely hypoxic. Will wean oxygen as tolerated to maintain O2 sats between 90 92%. * Change Dexamethasone 6 mg PO daily. * Duoneb (4) SIRS due to infectious process with acute organ dysfunction: Code(s): A41.9 - Sepsis, unspecified organism; R65.20 - Severe sepsis without septic shock Status: Acute Assessment and Plan: * Blood cultures no growth to date. * The patient fit SIRS criteria with tachycardia and tachypnea. * He is currently afebrile and does not have a white count. Although does fit sepsis criteria given acute infectious process. * Patient's COVID PCR did come back positive. * Lactic acid 1.5 (5) Atrial fibrillation with rapid ventricular response: Code(s): I48.91 - Unspecified atrial fibrillation Status: Acute Assessment and Plan: * Patient's INR is 2 and is on anticoagulation with Eliquis. * Cardiac consulted and following Diltiazem 30 mg PO TID. Changed Atenolol to Metoprolol 25 mg PO q8. Continue Eliquis. * HR now in the mid 90's (6) Elevated troponin: Code(s): R79.89 - Other specified abnormal findings of blood chemistry Status: Acute Assessment and Plan: * Troponin 0.048>0.041>0.043>0.043. * Troponin elevation likely secondary demand to acute hypoxic respiratory failure in the setting of up regulated AFib due to underlying infection. * Patient not having chest pain to suggest acute infarct. 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 Will exchange Ewing catheter if not done so in the ER. Patient is already on empiric antibiotic therapy for pneumonia. Although again UTI is less likely given lack of symptoms. * Urine culture no growth. (9) Pneumonia due to COVID-19 virus: Code(s): U07.1 - COVID-19; J12.82 - Pneumonia due to coronavirus disease 2019 Status: Acute Assessment and Plan: * Receiving Azithromycin 500 mg PO daily. * Ceftriaxone 1 gm ivpb q 24 switched today to Augmentin 875-125 mg 1 tab PO q12. * 02@ 1LNC (10) Hypomagnesemia: Code(s): E83.42 - Hypomagnesemia Status: Acute Assessment and Plan: * stable now at 1.9 (11) Chronic indwelling Ewing catheter: Code(s): Z97.8 - Presence of other specified devices Status: Acute Assessment and Plan: * History of bladder surgery requiring ewing afterwards. DS: Summary Hospital Course Reason for hospitalization: Community Acquired Pneumonia Hospital Course: Patient was brought in to the hospital by family with reports of increased generalized weakness. Work-up in the ER revealed PNA and possibly UTI, so he was admitted for treatment. Patient has been treated with IV antibiotics and is now on oral antibiotics to complete treatment. Patient is now requiring supplemental O2 possibly due to worsening COPD in the setting of PNA. He's being discharged on 2L/NC for sats > 90 %. Patient has been working with PT and family states they have enough support at home. Patient is medically stable for discharge with no acute distress noted or reported prior to discharge. Status at Discharge Functional status at discharge: uses cane/walker Overall status at discharge: patient is progressing back to baseline Time Spent with Patient Time attestation: Total time spent providing and/or coordinating discharge services: Time spent: Greater than 30 minutes Exam Narrative: General: Fair appearing, no acute distrss. HEENT: Atraumatic, PERRL, moist mucosa, EOM, NECK: Supple. LUNGS: Diminished bilaterally. HEART: Irregularly irregular, no murmurs. Abdomen: Soft, non-tender, +ve sounds X4 quadrants. Extremities: acyanotic, no edema. Skin: Warm and dry. No open areas noted. Neuro: Fairly oriented but with some confusion. CN II-XII intact. Psych: Calm and co-opeartive. DS: Data Data Completed and Pending Labs on day of discharge: Labs from last 24 hours 02/23/24 02/23/24 02/23/24 11:17 08:09 04:41 WBC 7.6 RBC 4.21 L Hgb 11.0 L Hct 35.5 L MCV 84.3 MCH 26.1 MCHC 31.0 L RDW 16.9 H Plt Count 137 L MPV 10.0 Immature Gran % (Auto) 1.3 H Neut % (Auto) 91.5 H Lymph % (Auto) 3.2 L Amelia % (Auto) 4.0 Eos % (Auto) 0.0 Baso % (Auto) 0.0 L Lymph # (Auto) 0.24 L Amelia # (Auto) 0.3 Eos # (Auto) 0.0 Baso # (Auto) 0.0 Abs Immat Gran (auto) 0.10 H Absolute Neuts (auto) 7.0 H Absolute Nucleated RBC 0.020 H Nucleated RBC % 0.3 H Sodium 136 L Potassium 4.7 Chloride 97 L Carbon Dioxide 37 H Anion Gap 2 L BUN 22 H Creatinine 0.70 Estim Creat Clear Calc 71 Estimated GFR > 60 Glucose 136 H POC Capillary Glucose 151 H 147 H Calcium 8.6 Total Bilirubin 1.2 AST 46 ALT 29 Alkaline Phosphatase 59 Total Protein 6.0 L Albumin 3.0 L 02/22/24 02/22/24 20:02 16:49 WBC RBC Hgb Hct MCV MCH MCHC RDW Plt Count MPV Immature Gran % (Auto) Neut % (Auto) Lymph % (Auto) Amelia % (Auto) Eos % (Auto) Baso % (Auto) Lymph # (Auto) Amelia # (Auto) Eos # (Auto) Baso # (Auto) Abs Immat Gran (auto) Absolute Neuts (auto) Absolute Nucleated RBC Nucleated RBC % Sodium Potassium Chloride Carbon Dioxide Anion Gap BUN Creatinine Estim Creat Clear Calc Estimated GFR Glucose POC Capillary Glucose 200 H 184 H Calcium Total Bilirubin AST ALT Alkaline Phosphatase Total Protein Albumin Discharge Plan Discharge Attending physician on discharge: Juli Finney Consulting providers: Tevin Tabor Discharging Clinician: Avni Amezcua Anticipated Discharge Date/Time: 02/23/24 15:02 Patient Disposition: Home, Self-Care Activity: as tolerated Diet: heart healthy Patient Instructions: Antibiotic Form, Using Oxygen at Home (DC), Hypoxia (GEN), Pulse Oximetry (DC), COVID-19 and Chronic Health Conditions (DC) Patient Language: Uzbek Stand Alone Forms: General Discharge Information Follow-up/Referrals: Tal Olsen MD [Primary Care Provider] - 1 Week Discharge Medications: New diltiazem HCl 60 mg Tablet 60 mg PO TID Qty: 90 0RF amoxicillin-pot clavulanate [Augmentin] 500-125 mg tablet 1 tablet PO Q12H Qty: 10 0RF furosemide 20 mg Tablet 20 mg PO DAILY Qty: 30 0RF polyethylene glycol 3350 [Miralax] 17 gram Powder In Packet 17 g PO QAM Qty: 14 0RF metoprolol tartrate 25 mg Tablet 25 mg PO Q8H Qty: 60 0RF Continued flaxseed oil 1,000 mg capsule 1,000 mg PO DAILY albuterol sulfate 90 mcg/actuation HFA aerosol inhaler 2 - 4 puff INHALATION QID PRN (Reason: shortness of breath or wheezing) Qty: 8.5 3RF cholecalciferol (vitamin D3) 50 mcg (2,000 unit) capsule 2,000 unit PO DAILY metformin 500 mg tablet 500 mg PO BID Qty: 180 2RF mecobalamin (vitamin B12) 500 mcg tablet,chewable 500 mcg PO .MWF tamsulosin 0.4 mg capsule 0.4 mg PO DAILY simvastatin 20 mg tablet 20 mg PO DAILY atenolol 50 mg tablet 50 mg PO DAILY Eliquis 5 mg tablet 5 mg PO BID temazepam 15 mg capsule 15 mg PO QHS PRN (Reason: sleep) Qty: 30 1RF furosemide 20 mg tablet 20 mg PO DAILY Qty: 60 2RF omeprazole magnesium [Prilosec OTC] 20 mg Tablet,Delayed Release (Dr/Ec) 20 mg PO DAILY Qty: 30 0RF Date of admission: 02/17/24 20:59 Primary Care Provider: Tal Olsen Admitting Provider: Aissatou Santoro Attending physician on admission: Aissatou Santoro Condition: Stable Quality VTE Prophylaxis VTE prophylaxis: pharmacologic ordered Hospitalist MIPS Heart Failure (Exclusion) Patient has history of Heart Transplant or Left Ventricular Assistive Device?: No IF YES, STOP HERE Heart Failure (Qualifier) Patient has current or prior documentation of LVEF less than or equal to 40%, or mod/servere depressed LVSF?: No IF NO, STOP HERE
== END 2024-02-23 17:00 | disposition home or self-care (01) | DRG 871 ==
LOC: ANHED 21:03 → ANHIMU 21:58
PROVIDERS: Nurse Practitioner Family; Physician Assistant; Admitting Provider Internal Medicine; Emergency Provider Emergency Medicine; PCP Emergency Medicine; Visit Provider Nurse Practitioner Adult Health
DX: A41.89 Other specified sepsis (principal); J12.82 Pneumonia due to coronavirus disease 2019; U07.1 COVID-19; J96.01 Acute respiratory failure with hypoxia; J44.0 Chronic obstructive pulmonary disease with (acute) lower respiratory infection; I48.20 Chronic atrial fibrillation, unspecified; I50.32 Chronic diastolic (congestive) heart failure; I24.89 Other forms of acute ischemic heart disease; I11.0 Hypertensive heart disease with heart failure; R65.20 Severe sepsis without septic shock; K21.9 Gastro-esophageal reflux disease without esophagitis; E78.2 Mixed hyperlipidemia; E11.9 Type 2 diabetes mellitus without complications; E83.42 Hypomagnesemia; R91.1 Solitary pulmonary nodule; Z79.01 Long term (current) use of anticoagulants; Z87.891 Personal history of nicotine dependence
CPT/HCPCS: 36415; 70450; 71046; 80053; 81001; 82948; 83605; 83735; 83880; 84484; 85025; 85055; 85610; 85730; 87040; 87086; 87637; 93005; 94618; 94640; 97161; 97165; 97530; 97535; 99285; A9270; J0456; J0696; J1100; J1160; J1815; J3475; J8540

== ENCOUNTER 2024-03-17 10:37 | Inpatient (IN) | payer MEDICARE, SELFPAY ==
[2024-03-17] VITALS (11 sets, daily range): BP systolic 96–137; BP diastolic 62–81; PULSE 79–91; RESP 16–29; TEMP 36.3–36.6; O2SAT 97–100; BMI 28.1
--- NOTE | ~2024-03-17 | CT_ITS ---
EXAMINATION: CTA chest PE protocol DATE: 03/17/2024 16:16 INDICATION: Pneumonia. Shortness of breath. Elevated d-dimer. TECHNIQUE: Computed tomography (CT) pulmonary angiogram of the chest was performed with 100 mL Omnipa que-350 intravenous contrast. Additional 3D reconstructions utilizing coronal maximum intensity proje ction (MIP) were performed. The dose-length product was 399.53 mGy-cm. COMPARISON: None FINDINGS: Mild emphysema. Moderate sized posterior layering right pleural effusion. Moderate to severe scattere d respiratory motion throughout the lungs which decreases sensitivity in the segmental and subsegment al pulmonary arteries Limited evaluation of fine pulmonary parenchymal detail. No pulmonary embolism in the main or lobar pulmonary arteries, essentially nondiagnostic in the segmental and subsegmental pulmonary arteries in the basilar segments of the bilateral lower lobes and in the lingula and right middle lobe. There is patchy consolidation in the superior segment of the right upper lobe discoid at electasis in the right middle lobe. Reticular and airspace opacities in the basilar left lower lobe w hich could represent atelectasis or pneumonia. Mild discoid atelectasis in the lingula. Cardiomegaly with with mild left atrial enlargement and more prominent right atrial and ventricular e nlargement. Atherosclerotic coronary artery calcifications. Aortic valve calcific location. No perica rdial effusion. Thoracic aorta is normal in caliber. No pathologically enlarged thoracic lymphadenopa thy. There is reflux of contrast into the inferior vena cava and hepatic veins consistent with tricus pid regurgitation. Abdominal aortic endoluminal stent graft beginning at the level of the celiac axis and extending below level of the renal arteries and the inferior margin of the field of imaging. Mil d thoracic spondylosis. IMPRESSION: 1. No central pulmonary embolism in the main and lobar pulmonary arteries and of the arteries in the bilateral upper lobes. Assessment of the segmental and subsegmental pulmonary arteries in the lower l ungs is essentially nondiagnostic due to prominent respiratory motion. 2. Moderate-sized posterior layering right pleural effusion. 3. Mild emphysema. 4. Patchy airspace opacities in the posterior right upper lobe and in the left lower lobe which could represent atelectasis or pneumonia. 5. Cardiomegaly with right heart predominance and with reflux of contrast into the inferior vena cava consistent with tricuspid regurgitation. Reviewed, dictated and finalized at location B. MANAGER IMPRESSION: 1. No central pulmonary embolism in the main and lobar pulmonary arteries and o f the arteries in the bilateral upper lobes. Assessment of the segmental and jones bsegmental pulmonary arteries in the lower lungs is essentially nondiagnostic d ue to prominent respiratory motion. 2. Moderate-sized posterior layering right pleural effusion. 3. Mild emphysema. 4. Patchy airspace opacities in the posterior right upper lobe and in the left lower lobe which could represent atelectasis or pneumonia. 5. Cardiomegaly with right heart predominance and with reflux of contrast into the inferior vena cava consistent with tricuspid regurgitation.
--- NOTE | ~2024-03-17 | XR_ITS ---
Clinical Indication: Shortness of breath PA and lateral views of the chest: Comparison: 02/17/2024 Findings: Small right pleural effusion present. There is patchy/interstitial prominence of the left l keeley base.. Cardiomediastinal silhouette is stable. Bones and soft tissues are unremarkable. Impression: Small right pleural effusion. Probable bibasilar pulmonary edema/atelectasis versus pneumonia. Reviewed, dictated and finalized at location . ER PULLER Impression: Small right pleural effusion. Probable bibasilar pulmonary edema/atelectasis versus pneumonia.
--- NOTE | ~2024-03-17 | US_ITS ---
BILATERAL LOWER EXTREMITY VENOUS ULTRASOUND Ordering provider: Asha Juarez PA-C History: . Bilateral lower extremity edema . Comparison: None. FINDINGS: RIGHT LOWER EXTREMITY VEINS: --COMMON FEMORAL: Patent and free of thrombus. Normal compressibility, phasic flow and augmentation. --PROXIMAL SUPERFICIAL FEMORAL: Patent and free of thrombus. Normal compressibility, phasic flow and augmentation. --DISTAL SUPERFICIAL FEMORAL: Patent and free of thrombus. Normal compressibility, phasic flow and au gmentation. --POPLITEAL: Patent and free of thrombus. Normal compressibility, phasic flow and augmentation. --POSTERIOR TIBIAL: Patent and free of thrombus. Normal compressibility, phasic flow and augmentation . LEFT LOWER EXTREMITY VEINS: --COMMON FEMORAL: Patent and free of thrombus. Normal compressibility, phasic flow and augmentation. --PROXIMAL SUPERFICIAL FEMORAL: Patent and free of thrombus. Normal compressibility, phasic flow and augmentation. --DISTAL SUPERFICIAL FEMORAL: Patent and free of thrombus. Normal compressibility, phasic flow and au gmentation. --POPLITEAL: Patent and free of thrombus. Normal compressibility, phasic flow and augmentation. --POSTERIOR TIBIAL: Patent and free of thrombus. Normal compressibility, phasic flow and augmentation . Ribeiro's cyst measuring 4.1 x 1.6 x 2.6 cm is seen in the left popliteal area. IMPRESSION: Negative bilateral lower extremity venous US. No deep vein thrombosis. Reviewed, dictated and finalized at location A. RINE PLANT OPERATOR
--- NOTE | 2024-03-17 10:57 | ECG_ITS ---
Test Date: 2024-03-17 12:32:08 Measurements Intervals Fowler Rate: 67 P: 0 NV: 0 QRS: -39 QRSD: 97 T: 91 QT: 377 QTc: 398 Interpretive Statements ATRIAL FIBRILLATION MARKED LEFT AXIS DEVIATION [QRS AXIS < -30] ABNORMAL QRS-T ANGLE [QRS-T AXIS DIFFERENCE > 60] Compared to ECG 02/17/2024 16:22:07 T-wave abnormality no longer present Electronically Signed On 03-20-2024 15:04:30 [employer] by Gopal Garduno M.D.
--- NOTE | 2024-03-17 10:57 | ED_ITS ---
HPI - General Adult General Chief complaint: Unspecified <Sonal Baig PA-C - Last Filed: 03/17/24 10:59> Stated complaint: rapid wt gain <Sonal Baig PA-C - Last Filed: 03/17/24 10:59> Time Seen by Provider: 03/17/24 17:42 <Sonal Baig PA-C - Last Filed: 03/17/24 10:59> Focused HPI: 78-year-old male with history of CHF and chronic hypoxic respiratory failure on 2 L nasal cannula baseline presents to emergency department for bilateral lower extremity edema and volume overload. Patient states he has been taking his Lasix as directed. He reports new onset exertional dyspnea. States he has gained 8 lb in the past 2 weeks. Denies chest pain, cough or congestion, fever. Patient arrives without his oxygen. States he has been trying to not use it to see if he does not needed. Upon arrival he is 97% on room air in no distress. However given reported shortness of breath he was placed on 2 L and nursing staff. GENERAL: Well-appearing, well-nourished, and in no acute distress. HEAD: Normocephalic, atraumatic. CHEST: Decreased lung sounds in the bases. ?No respiratory distress. 4+ pitting edema to bilateral lower extremities HEART: Regular rate and rhythm.? NEURO: ?Alert and oriented x3. Patient screened in triage and initial orders placed.? ?Additional care and disposition to be based upon?diagnostic testing and treatment. <Sonal Baig PA-C - Last Filed: 03/17/24 10:59> Focused HPI: 78-year-old male with history of CHF and chronic hypoxic respiratory failure on 2 L nasal cannula baseline presents to emergency department for bilateral lower extremity edema and volume overload. Patient states he has been taking his Lasix as directed. He reports new onset exertional dyspnea. States he has gained 8 lb in the past 2 weeks. Denies chest pain, fever. Reports a productive cough. Patient arrives without his oxygen. States he has been trying to not use it to see if he does not needed. Upon arrival he is 97% on room air in no distress. However given reported shortness of breath he was placed on 2 L by nursing staff. GENERAL: Well-appearing, well-nourished, and in no acute distress. HEAD: Normocephalic, atraumatic. CHEST: Decreased lung sounds in the bases. ?No respiratory distress. 4+ pitting edema to bilateral lower extremities HEART: Regular rate and rhythm.? NEURO: ?Alert and oriented x3. Patient screened in triage and initial orders placed.? ?Additional care and disposition to be based upon?diagnostic testing and treatment. <Joaquina Hollingsworth PA-C - Last Filed: 03/17/24 18:43> History of Present Illness HPI narrative: Agree with the HPI above <Roberto Mondragon MD - Last Filed: 03/17/24 23:23> Related Data Home medications: Home Medications ?Medication ?Instructions ?Recorded ?Confirmed ?Last Taken ?Type cholecalciferol (vitamin D3) 50 2,000 unit PO DAILY 01/22/20 03/17/24 03/17/24 History mcg (2,000 unit) capsule mecobalamin (vitamin B12) 500 mcg 500 mcg PO .MWF 06/01/23 03/17/24 03/17/24 History chewable tablet apixaban 5 mg tablet (Eliquis) 5 mg PO BID 02/17/24 03/17/24 03/17/24 History atenolol 50 mg tablet 50 mg PO DAILY 02/17/24 03/17/24 03/17/24 History simvastatin 20 mg tablet 20 mg PO DAILY 02/17/24 03/17/24 Unknown History tamsulosin 0.4 mg capsule 0.4 mg PO DAILY 02/17/24 03/17/24 03/17/24 History oxygen 2 l inhalation DAILY 03/01/24 03/17/24 03/17/24 History diltiazem HCl 60 mg tablet 60 mg PO Q8H 03/17/24 03/17/24 03/17/24 History <Sonal Baig PA-C - Last Filed: 03/17/24 10:59> Allergies/adverse reactions: Allergies Allergy/AdvReac Type Severity Reaction Status Date / Time lisinopril AdvReac Severe tongue and Verified 03/01/24 11:48 lip swelling ibuprofen AdvReac Unknown Gastrointestinal Verified 03/01/24 11:48 Upset <Sonal Baig PA-C - Last Filed: 03/17/24 10:59> Review of Systems 2 Review of Systems: CONSTITUTIONAL: Denies fever ENT: Reports congestion CARDIOVASCULAR: Reports edema. Denies chest pain RESPIRATORY: Reports cough and dyspnea. <Joaquina Hollingsworth PA-C - Last Filed: 03/17/24 18:43> All systems reviewed & are unremarkable except as noted in HPI and below < Joaquina Hollingsworth PA-C - Last Filed: 03/17/24 18:43> [facility] Past Medical History Medical History: Medical History (Updated 03/17/24 @ 18:43 by Joaquina Hollingsworth PA-C) Diabetes mellitus Tricuspid regurgitation Moderate noted on echocardiogram March 2023 Mitral valve regurgitation Pulmonary hypertension Mild on echo March 2023 Diastolic dysfunction Echocardiogram March 2023: EF 60 65%, mild concentric increased left ventricular wall thickness, abnormal diastolic function, E/E 10 is mildly elevated, severe left atrial enlargement, moderate mitral valve regurgitation, moderate tricuspid valve regurgitation, mild pulmonary hypertension Chronic indwelling Gan catheter Chronic anticoagulation Insomnia Adrenal insufficiency Gross hematuria COPD (chronic obstructive pulmonary disease) Paroxysmal SVT (supraventricular tachycardia) Hypomagnesemia Atherosclerotic heart disease of [place] coronary artery with angina pectoris B12 deficiency Chronic atrial fibrillation Enlarged prostate without lower urinary tract symptoms (luts) Essential (primary) hypertension Gastro-esophageal reflux disease without esophagitis Lung nodule Mixed hyperlipidemia Non-rheumatic mitral regurgitation Moderate noted on echo March 2023 Other hyperlipidemia Overweight (04/22/15) Smoking Tobacco abuse Vitamin D deficiency Adenomatous colon polyp Mitral regurgitation CAD (coronary artery disease) Aortic root aneurysm HTN (hypertension) Afib AAA (abdominal aortic aneurysm) <Sonal Baig PA-C - Last Filed: 03/17/24 10:59> Surgical History Surgical History: Surgical History S/P TURP History of transurethral resection of prostate H/O heart artery stent History of endovascular stent graft for abdominal aortic aneurysm History of aortic aneurysm repair History of cardiac cath <Sonal Baig PA-C - Last Filed: 03/17/24 10:59> Family History Family History: Family History Father Acute myocardial infarction <Sonal Baig PA-C - Last Filed: 03/17/24 10:59> Social History Social History: Social History Social History: He lives with his . They raised 3 children. He retired from [employer] He denies any alcohol, marijuana or illicit drugs. Code status: Full code Healthcare power of state's attorney: Smoking packs per day: 1 Smoking cigarettes per day: 20.0 Years smoked: 50 Smoking pack-years: 50.00 Smoking status: Former smoker Tobacco type: cigars Second hand tobacco smoke exposure: Yes Additional smoking assessment comments: quit in 2019 Alcohol intake: never Substance use: never Substance use type: does not use Do You Feel Safe in your Home?: Yes Lack of Transportation: No Lack of Food: Never True Current Housing: I Have Housing Concerned About Future Housing: No Difficulty Paying Gas/Electric Bills: No Difficulty Paying for Meds: No Currently Unemployed: No Education: High School Diploma/GED Difficulty w/ Childcare or Family Care: No Living arrangements: with family Occupation/Education: retired Gender identity (if verbalized by the patient): Male Spiritual care concerns: No <Sonal Baig PA-C - Last Filed: 03/17/24 10:59> Exam 2 Narrative: GENERAL: Well-appearing, well-nourished, and in no acute distress. HEAD: Normocephalic, atraumatic. EYES: EOMI. ENT: Nares clear, no rhinorrhea or epistaxis. Mucous membranes moist. Oropharynx without tonsillar hypertrophy exudate or other lesions. NECK: Supple. No adenopathy or masses. CHEST: No respiratory distress. Lung sounds diminished with scattered wheezing. Rales at the bases. No rhonchi HEART: Regular rate and rhythm. No murmur heard. Normal peripheral pulses. EXTREMITIES: Normal range of motion. 2+ pitting edema to the bilateral lower extremities SKIN: Warm, dry, no rash. NEURO: No focal deficits. Alert and oriented x3. PSYCH: Normal mood and affect <DORA Aguilar Last Filed: 03/17/24 18:43> Course Course Emergency Course: patient and family updated on workup and recommendation for admission < DORA Aguilar Last Filed: 03/17/24 18:43> SALES AND SERVICE CONSULTANT/PA Physician Supervision Patient's HPI, Exam, and MDM were reviewed and I agreed with the workup and disposition done in the emergency department by the MLP. I was available for consultation, but was not directly involved with patient's care nor did I evaluate the patient. <Roberto Mondragon MD - Last Filed: 03/17/24 23:23> Consultations Consultation #1: spoke with hospitalist about patient and workup who accepts admission < Joaquina Hollingsworth PA-C - Last Filed: 03/17/24 18:43> Date: 03/17/24 <DORA Aguilar Last Filed: 03/17/24 18:43> Vital Signs Vital signs: Vital Signs Temperature 36.4 C 03/17/24 10:50 Pulse Rate 83 03/17/24 10:50 Respiratory Rate 16 03/17/24 10:50 Blood Pressure 113/65 03/17/24 10:50 Pulse Oximetry 97 03/17/24 10:50 Temperature 36.3 C L 03/17/24 21:50 Pulse Rate 91 03/17/24 21:50 Respiratory Rate 18 03/17/24 21:50 Blood Pressure 109/68 03/17/24 21:50 Pulse Oximetry 99 03/17/24 21:50 Oxygen Flow Rate 2 03/17/24 18:00 <Sonal Baig PA-C - Last Filed: 03/17/24 10:59> Vital Signs Temperature 36.4 C 03/17/24 10:50 Pulse Rate 83 03/17/24 10:50 Respiratory Rate 16 03/17/24 10:50 Blood Pressure 113/65 03/17/24 10:50 Pulse Oximetry 97 03/17/24 10:50 Temperature 36.3 C L 03/17/24 21:50 Pulse Rate 91 03/17/24 21:50 Respiratory Rate 18 03/17/24 21:50 Blood Pressure 109/68 03/17/24 21:50 Pulse Oximetry 99 03/17/24 21:50 Oxygen Flow Rate 2 03/17/24 18:00 <DORA Aguilar Last Filed: 03/17/24 18:43> Vital Signs Temperature 36.4 C 03/17/24 10:50 Pulse Rate 83 03/17/24 10:50 Respiratory Rate 16 03/17/24 10:50 Blood Pressure 113/65 03/17/24 10:50 Pulse Oximetry 97 03/17/24 10:50 Temperature 36.3 C L 03/17/24 21:50 Pulse Rate 91 03/17/24 21:50 Respiratory Rate 18 03/17/24 21:50 Blood Pressure 109/68 03/17/24 21:50 Pulse Oximetry 99 03/17/24 21:50 Oxygen Flow Rate 2 03/17/24 18:00 <Roberto Mondragon MD - Last Filed: 03/17/24 23:23> Medical Decision Making MDM Narrative Medical decision making narrative: patient presents to the ER for fluid overload. Patient's oxygen saturation is stable to 1L NC that is has been on since discharge a couple of weeks ago. He is afebrile. Lung sounds are diminished with rales at the bases and scattered wheezing. Blood work significant for hypomagnesemia, BNP of 2950. D-dimer elevated, CTA of the chest. No central PE. Moderate-sized right pleural effusion. Mild emphysema. Patchy airspace opacities in the right upper and left lower lobe. Cardiomegaly with right heart predominance with reflux of contrast into the inferior vena cava consistent with tricuspid regurgitation. patient and family updated on workup and recommendation for admission. spoke with hospitalist about patient and workup who accepts admission <Joaquina Hollingsworth PA-C - Last Filed: 03/17/24 18:43> Differential Diagnosis Differential Diagnosis: CHF, COPD, electrolyte derangement, arrhythmia <Joaquina Hollingsworth PA-C - Last Filed: 03/17/24 18:43> Vital Signs Vital Signs: Vital Signs Temperature 36.4 C 03/17/24 10:50 Pulse Rate 83 03/17/24 10:50 Respiratory Rate 16 03/17/24 10:50 Blood Pressure 113/65 03/17/24 10:50 Pulse Oximetry 97 03/17/24 10:50 Temperature 36.3 C L 03/17/24 21:50 Pulse Rate 91 03/17/24 21:50 Respiratory Rate 18 03/17/24 21:50 Blood Pressure 109/68 03/17/24 21:50 Pulse Oximetry 99 03/17/24 21:50 Oxygen Flow Rate 2 03/17/24 18:00 <Sonal Baig PA-C - Last Filed: 03/17/24 10:59> Vital Signs Temperature 36.4 C 03/17/24 10:50 Pulse Rate 83 03/17/24 10:50 Respiratory Rate 16 03/17/24 10:50 Blood Pressure 113/65 03/17/24 10:50 Pulse Oximetry 97 03/17/24 10:50 Temperature 36.3 C L 03/17/24 21:50 Pulse Rate 91 03/17/24 21:50 Respiratory Rate 18 03/17/24 21:50 Blood Pressure 109/68 03/17/24 21:50 Pulse Oximetry 99 03/17/24 21:50 Oxygen Flow Rate 2 03/17/24 18:00 <DORA Aguilar Last Filed: 03/17/24 18:43> Vital Signs Temperature 36.4 C 03/17/24 10:50 Pulse Rate 83 03/17/24 10:50 Respiratory Rate 16 03/17/24 10:50 Blood Pressure 113/65 03/17/24 10:50 Pulse Oximetry 97 03/17/24 10:50 Temperature 36.3 C L 03/17/24 21:50 Pulse Rate 91 03/17/24 21:50 Respiratory Rate 18 03/17/24 21:50 Blood Pressure 109/68 03/17/24 21:50 Pulse Oximetry 99 03/17/24 21:50 Oxygen Flow Rate 2 03/17/24 18:00 <Roberto Mondragon MD - Last Filed: 03/17/24 23:23> Lab Data Lab results reviewed: Yes I reviewed the patient's lab results. <DORA Aguilar Last Filed: 03/17/24 18:43> Result diagrams: 03/17/24 12:23 03/17/24 12:23 <DORA Manjarrez Last Filed: 03/17/24 10:59> Labs: Lab Results 03/17/24 Range/Units 12:23 WBC 4.3 L (4.5-10.0) K/mm3 RBC 4.46 L (4.6-6.20) M/mm3 Hgb 12.1 L (14.0-18.0) g/dL Hct 38.3 L (42.0-52.0) % MCV 85.9 (80-100) fl MCH 27.1 (26-34) pg MCHC 31.6 L (32-36) g/dl RDW 19.4 H (11.5-14.5) % Plt Count 117 L (150-375) k/mm3 MPV 9.8 (7.4-10.4) fl Immature Gran % (Auto) 0.2 (0-0.5) % Neut % (Auto) 76.1 H (45.5-73.1) % Lymph % (Auto) 14.5 L (18.3-44.2) % [place] % (Auto) 8.5 (2.6-8.5) % Eos % (Auto) 0.0 (0-4.4) % Baso % (Auto) 0.7 (0.2-1.2) % Lymph # (Auto) 0.63 L (0.9-3.2) K/mm3 [place] # (Auto) 0.4 (0.1-0.6) K/mm3 Eos # (Auto) 0.0 (0-0.3) K/mm3 Baso # (Auto) 0.0 (0.0-0.1) K/mm3 Abs Immat Gran (auto) 0.01 (0.00-0.031) K/mm3 Absolute Neuts (auto) 3.3 (1.3-6.7) K/mm3 Absolute Nucleated RBC 0.000 (0.0-0.012) K/mm3 Nucleated RBC % 0.0 (0.0-0.2) % PT 22.3 H (11.1-14.7) Seconds INR 1.9 APTT 35.1 (22.3-36.8) Seconds D-Dimer 3.37 H (<0.48) ug/mL Sodium 131 L (137-145) mmol/L Potassium 4.2 (3.4-5.0) mmol/L Chloride 95 L (98-107) mmol/L Carbon Dioxide 33 H (22-30) mmol/L Anion Gap 3 L (4-12) mmol/L BUN 17 (9-20) mg/dL Creatinine 0.70 (0.7-1.3) mg/dL Estim Creat Clear Calc 71 ml/min Estimated GFR > 60 (59 - ) Glucose 114 H (65-110) mg/dL Calcium 8.5 (8.4-10.2) mg/dL Magnesium 1.1 L (1.6-2.3) mg/dL Total Bilirubin 1.1 (0.2-1.3) mg/dL AST 34 (17-59) U/L ALT 21 (6-50) U/L Alkaline Phosphatase 75 (38-126) U/L NT-Pro-B Natriuret Pep 2950 H (19.9-100) pg/mL Total Protein 7.0 (6.3-8.2) g/dL Albumin 3.4 L (3.5-5.1) g/dL <Sonal Baig PA-C - Last Filed: 03/17/24 10:59> Lab Results 03/17/24 Range/Units 12:23 WBC 4.3 L (4.5-10.0) K/mm3 RBC 4.46 L (4.6-6.20) M/mm3 Hgb 12.1 L (14.0-18.0) g/dL Hct 38.3 L (42.0-52.0) % MCV 85.9 (80-100) fl MCH 27.1 (26-34) pg MCHC 31.6 L (32-36) g/dl RDW 19.4 H (11.5-14.5) % Plt Count 117 L (150-375) k/mm3 MPV 9.8 (7.4-10.4) fl Immature Gran % (Auto) 0.2 (0-0.5) % Neut % (Auto) 76.1 H (45.5-73.1) % Lymph % (Auto) 14.5 L (18.3-44.2) % [place] % (Auto) 8.5 (2.6-8.5) % Eos % (Auto) 0.0 (0-4.4) % Baso % (Auto) 0.7 (0.2-1.2) % Lymph # (Auto) 0.63 L (0.9-3.2) K/mm3 [place] # (Auto) 0.4 (0.1-0.6) K/mm3 Eos # (Auto) 0.0 (0-0.3) K/mm3 Baso # (Auto) 0.0 (0.0-0.1) K/mm3 Abs Immat Gran (auto) 0.01 (0.00-0.031) K/mm3 Absolute Neuts (auto) 3.3 (1.3-6.7) K/mm3 Absolute Nucleated RBC 0.000 (0.0-0.012) K/mm3 Nucleated RBC % 0.0 (0.0-0.2) % PT 22.3 H (11.1-14.7) Seconds INR 1.9 APTT 35.1 (22.3-36.8) Seconds D-Dimer 3.37 H (<0.48) ug/mL Sodium 131 L (137-145) mmol/L Potassium 4.2 (3.4-5.0) mmol/L Chloride 95 L (98-107) mmol/L Carbon Dioxide 33 H (22-30) mmol/L Anion Gap 3 L (4-12) mmol/L BUN 17 (9-20) mg/dL Creatinine 0.70 (0.7-1.3) mg/dL Estim Creat Clear Calc 71 ml/min Estimated GFR > 60 (59 - ) Glucose 114 H (65-110) mg/dL Calcium 8.5 (8.4-10.2) mg/dL Magnesium 1.1 L (1.6-2.3) mg/dL Total Bilirubin 1.1 (0.2-1.3) mg/dL AST 34 (17-59) U/L ALT 21 (6-50) U/L Alkaline Phosphatase 75 (38-126) U/L NT-Pro-B Natriuret Pep 2950 H (19.9-100) pg/mL Total Protein 7.0 (6.3-8.2) g/dL Albumin 3.4 L (3.5-5.1) g/dL <Joaquina Hollingsworth PA-C - Last Filed: 03/17/24 18:43> Lab Results 03/17/24 Range/Units 12:23 WBC 4.3 L (4.5-10.0) K/mm3 RBC 4.46 L (4.6-6.20) M/mm3 Hgb 12.1 L (14.0-18.0) g/dL Hct 38.3 L (42.0-52.0) % MCV 85.9 (80-100) fl MCH 27.1 (26-34) pg MCHC 31.6 L (32-36) g/dl RDW 19.4 H (11.5-14.5) % Plt Count 117 L (150-375) k/mm3 MPV 9.8 (7.4-10.4) fl Immature Gran % (Auto) 0.2 (0-0.5) % Neut % (Auto) 76.1 H (45.5-73.1) % Lymph % (Auto) 14.5 L (18.3-44.2) % [place] % (Auto) 8.5 (2.6-8.5) % Eos % (Auto) 0.0 (0-4.4) % Baso % (Auto) 0.7 (0.2-1.2) % Lymph # (Auto) 0.63 L (0.9-3.2) K/mm3 [place] # (Auto) 0.4 (0.1-0.6) K/mm3 Eos # (Auto) 0.0 (0-0.3) K/mm3 Baso # (Auto) 0.0 (0.0-0.1) K/mm3 Abs Immat Gran (auto) 0.01 (0.00-0.031) K/mm3 Absolute Neuts (auto) 3.3 (1.3-6.7) K/mm3 Absolute Nucleated RBC 0.000 (0.0-0.012) K/mm3 Nucleated RBC % 0.0 (0.0-0.2) % PT 22.3 H (11.1-14.7) Seconds INR 1.9 APTT 35.1 (22.3-36.8) Seconds D-Dimer 3.37 H (<0.48) ug/mL Sodium 131 L (137-145) mmol/L Potassium 4.2 (3.4-5.0) mmol/L Chloride 95 L (98-107) mmol/L Carbon Dioxide 33 H (22-30) mmol/L Anion Gap 3 L (4-12) mmol/L BUN 17 (9-20) mg/dL Creatinine 0.70 (0.7-1.3) mg/dL Estim Creat Clear Calc 71 ml/min Estimated GFR > 60 (59 - ) Glucose 114 H (65-110) mg/dL Calcium 8.5 (8.4-10.2) mg/dL Magnesium 1.1 L (1.6-2.3) mg/dL Total Bilirubin 1.1 (0.2-1.3) mg/dL AST 34 (17-59) U/L ALT 21 (6-50) U/L Alkaline Phosphatase 75 (38-126) U/L NT-Pro-B Natriuret Pep 2950 H (19.9-100) pg/mL Total Protein 7.0 (6.3-8.2) g/dL Albumin 3.4 L (3.5-5.1) g/dL <Roberto Mondragon MD - Last Filed: 03/17/24 23:23> Imaging Data Radiologist's impression: ITS Impressions Chest X-Ray 03/17/24 13:01 Impression: Small right pleural effusion. Probable bibasilar pulmonary edema/atelectasis versus pneumonia. Chest CTA 03/17/24 16:16 IMPRESSION: 1. No central pulmonary embolism in the main and lobar pulmonary arteries and of the arteries in the bilateral upper lobes. Assessment of the segmental and subsegmental pulmonary arteries in the lower lungs is essentially nondiagnostic due to prominent respiratory motion. 2. Moderate-sized posterior layering right pleural effusion. 3. Mild emphysema. 4. Patchy airspace opacities in the posterior right upper lobe and in the left lower lobe which could represent atelectasis or pneumonia. 5. Cardiomegaly with right heart predominance and with reflux of contrast into the inferior vena cava consistent with tricuspid regurgitation. <Joaquina Hollingsworth PA-C - Last Filed: 03/17/24 18:43> Critical Care Time Critical Care Time Critical Care Time: Yes <Joaquina Hollingsworth PA-C - Last Filed: 03/17/24 18:43> Total Critical Care Time: 35 <Joaquina Hollingsworth PA-C - Last Filed: 03/17/24 18:43> Discharge Plan Discharge Clinical Impression: Hypomagnesemia CHF exacerbation Qualifiers: Heart failure type: unspecified Qualified Code(s): I50.9 - Heart failure, unspecified Tricuspid regurgitation Qualifiers: Cardiac valve disease etiology: etiology unspecified Qualified Code(s): I07.1 - Rheumatic tricuspid insufficiency <Sonal Baig PA-C - Last Filed: 03/17/24 10:59> Patient Disposition: Still a Patient <Sonal Baig PA-C - Last Filed: 03/17/24 10:59> Condition: Stable <Sonal Baig PA-C - Last Filed: 03/17/24 10:59>
[2024-03-17 12:32] LABS: Basophils Percent Auto 0.7 % (0.2-1.2); Hematocrit 38.3 % (42.0-52.0); Hemoglobin 12.1 g/dL (14.0-18.0); Immature Granulocyte Absolute 0.01 K/mm3 (0.00-0.031); Immature Granulocyte Percent A 0.2 % (0-0.5); Lymphocytes Absolute Auto 0.63 K/mm3 (0.9-3.2); Lymphocytes Percent Auto 14.5 % (18.3-44.2); Mean Corpuscular HGB Conc 31.6 g/dl (32-36); Mean Corpuscular Hemoglobin 27.1 pg (26-34); Mean Corpuscular Volume 85.9 fl (80-100); Mean Platelet Volume 9.8 fl (7.4-10.4); Monocytes Absolute Auto 0.4 K/mm3 (0.1-0.6); Monocytes Percent Auto 8.5 % (2.6-8.5); Neutrophils Absolute Auto 3.3 K/mm3 (1.3-6.7); Neutrophils Percent Auto 76.1 % (45.5-73.1); Platelet Count Result 117 k/mm3 (150-375); Red Blood Count 4.46 M/mm3 (4.6-6.20); Red Cell Distribution Width 19.4 % (11.5-14.5); White Blood Count 4.3 K/mm3 (4.5-10.0)
[2024-03-17 12:42] LABS: Alanine Aminotransferase 21 U/L (6-50); Albumin Level 3.4 g/dL (3.5-5.1); Alkaline Phosphatase 75 U/L (38-126); Anion Gap 3 mmol/L (4-12); Aspartate Amino Transferase 34 U/L (17-59); Bilirubin,Total 1.1 mg/dL (0.2-1.3); Blood Urea Nitrogen 17 mg/dL (9-20); Calcium 8.5 mg/dL (8.4-10.2); Carbon Dioxide 33 mmol/L (22-30); Chloride 95 mmol/L (98-107); Estimated CRCL calculation 71 ml/min; Estimated Glomerular Filt Rate > 60; Glucose 114 mg/dL (65-110); Magnesium 1.1 mg/dL (1.6-2.3); Potassium 4.2 mmol/L (3.4-5.0); Sodium 131 mmol/L (137-145)
[2024-03-17 12:44] LABS: INR 1.9; Prothrombin Time 22.3 Seconds (11.1-14.7)
[2024-03-17 12:45] LABS: Partial Thromboplastin Time 35.1 Seconds (22.3-36.8)
[2024-03-17 12:50] LABS: D Dimer 3.37 ug/mL (<0.48); NT Pro B Type Natriuretic Pept 2950 pg/mL (19.9-100)
[2024-03-17] MEDS: IPRATROPIUM 0.5 MG/ALBUTEROL SULFATE 2.5 MG AMPUL.NEB 3 ML INHALATION (17:55)
[2024-03-17] MEDS: MAGNESIUM SULF 2 GM/WATER 50ML 2 GM/50 ML BAG IVPB (18:02)
[2024-03-17] MEDS: FUROSEMIDE INJ 40 MG/4 ML VIAL IV PUSH (18:08)
--- NOTE | 2024-03-17 18:20 | P.HP_ITS ---
H&P: HPI History of Present Illness Date/Time: 03/17/24 21:00 Chief Complaint: Swelling and weight gain. Narrative: This is a very pleasant 78-year-old gentleman with paroxysmal atrial fibrillation on chronic anticoagulation, diastolic dysfunction, abdominal aortic aneurysm status post repair, coronary artery disease, hypertension, hyperlipidemia, chronic obstructive pulmonary disease, benign prostatic hyper plasia, type 2 diabetes mellitus, and gastroesophageal reflux disease who presented to the emergency department with complaints of swelling and weight gain. The patient provides the following history. He was admitted to the hospital early last month with pneumonia and COVID-19 and was discharged on home oxygen which he uses p.r.n.. He is ?not quite back to baseline? and has been trying to stay hydrated, now drinking an extra 8 oz of water a day. Over the past couple of weeks he has felt worse, mainly with shortness of breath on exertion. He has gained approximately 8 lb in the same time frame and has developed significant lower extremity edema which is unusual for him. His appetite has been pretty good although he has occasional nausea. He denies fever, chills, sweats, sinus congestion, productive cough, exertional chest pain, pleuritic pain, palpitations, abdominal pain, vomiting, diarrhea, dysuria, calf pain, syncope, and near syncope. In the ED: He was afebrile on arrival with stable vital signs. Labs are significant for WBC count of 4.3, hemoglobin 12.1, platelet 117, D-dimer 3.37, INR 1.9, sodium 131, chloride 95, carbon dioxide 33, magnesium 1.1, proBNP 2950. Chest CTA showed no central pulmonary embolism in the main and lobar pulmonary arteries in arteries of the bilateral upper lobes; assessment of the other arteries are essentially nondiagnostic due to prominent respiratory motion. A moderate sized posterior Ling right pleural effusion was seen as well as patchy airspace opacities in the posterior right upper lobe and left lower lobe which could represent atelectasis or pneumonia and cardiomegaly. He was given furosemide 40 mg IV, magnesium sulfate 2 g IV, azithromycin 500 mg, and ceftriaxone 1 gm and he is being admitted in this setting for further treatment and evaluation. Review of Systems Review of Systems: 12 systems were reviewed and are negativ e except for as per HPI. [facility] Past Medical History Medical History (Updated 03/17/24 @ 23:52 by Asha Juarez PA-C) Chronic obstructive pulmonary disease Chronic obstructive pulmonary disease Type 2 diabetes mellitus Abdominal aortic aneurysm Status post repair Hypertension Tricuspid regurgitation Moderate noted on echocardiogram March 2023 Pulmonary hypertension Mild on echo March 2023 Diastolic dysfunction Echocardiogram March 2023: EF 60 65%, mild concentric increased left ventricular wall thickness, abnormal diastolic function, E/E 10 is mildly elevated, severe left atrial enlargement, moderate mitral valve regurgitation, moderate tricuspid valve regurgitation, mild pulmonary hypertension Chronic anticoagulation Insomnia Adrenal insufficiency Gross hematuria Atherosclerotic heart disease of [place] coronary artery with angina pectoris B12 deficiency Chronic atrial fibrillation Enlarged prostate without lower urinary tract symptoms (luts) Gastro-esophageal reflux disease without esophagitis Lung nodule Mixed hyperlipidemia Non-rheumatic mitral regurgitation Moderate noted on echo March 2023 Overweight (04/22/15) Tobacco abuse Vitamin D deficiency Adenomatous colon polyp Aortic root aneurysm Surgical History Surgical History (Updated 03/17/24 @ 23:48 by Asha Juarez PA-C) History of coronary artery stent placement History of transurethral resection of prostate History of endovascular stent graft for abdominal aortic aneurysm History of cardiac cath Family History Family History Father Acute myocardial infarction Social History Social History (Updated 03/17/24 @ 23:49 by Asha Juarez PA-C) Social History: Surrogate medical decision maker: Dory Echeverria, spouse. Code status: Full code. Smoking packs per day: 1 Smoking cigarettes per day: 20.0 Years smoked: 50 Smoking pack-years: 50.00 Smoking status: Former smoker Tobacco type: cigars Second hand tobacco smoke exposure: Yes Additional smoking assessment comments: quit in 2019 Alcohol intake: never Substance use: never Substance use type: does not use Do You Feel Safe in your Home?: Yes Lack of Transportation: No Lack of Food: Never True Current Housing: I Have Housing Concerned About Future Housing: No Difficulty Paying Gas/Electric Bills: No Difficulty Paying for Meds: No Currently Unemployed: No Education: High School Diploma/GED Difficulty w/ Childcare or Family Care: No Living arrangements: with family Additional living arrangements comments: Lives with spouse in [facility]. They have 3 children. Occupation/Education: retired Additional occupation/education comments: Retired from [employer]. Spiritual care concerns: No Meds Home Medications and Allergies Home Medications ?Medication ?Instructions ?Recorded ?Confirmed ?Type cholecalciferol (vitamin D3) 50 2,000 unit PO DAILY 01/22/20 03/09/24 History mcg (2,000 unit) capsule mecobalamin (vitamin B12) 500 mcg 500 mcg PO .MWF 06/01/23 03/09/24 History chewable tablet metformin 500 mg tablet 500 mg PO BID #180 tabs 07/14/23 03/09/24 Rx albuterol sulfate 90 mcg/actuation 2 - 4 puff inhalation QID PRN 11/17/23 03/09/24 Rx aerosol inhaler shortness of breath or wheezing #8.5 grams temazepam 15 mg capsule 15 mg PO QHS PRN sleep #30 caps 02/09/24 03/09/24 Rx apixaban 5 mg tablet (Eliquis) 5 mg PO BID 02/17/24 03/09/24 History atenolol 50 mg tablet 50 mg PO DAILY 02/17/24 03/09/24 History simvastatin 20 mg tablet 20 mg PO DAILY 02/17/24 03/09/24 History tamsulosin 0.4 mg capsule 0.4 mg PO DAILY 02/17/24 03/09/24 History furosemide 20 mg tablet 20 mg PO DAILY #60 tabs 02/23/24 03/09/24 Rx omeprazole magnesium 20 mg 20 mg PO DAILY #30 tabs 02/23/24 03/09/24 Rx tablet,delayed release (Prilosec OTC) oxygen inhalation 03/01/24 03/09/24 History diltiazem HCl 60 mg tablet 60 mg PO Q8H 03/17/24 03/17/24 History Allergies Allergy/AdvReac Type Severity Reaction Status Date / Time lisinopril AdvReac Severe tongue and Verified 03/01/24 11:48 lip swelling ibuprofen AdvReac Unknown Gastrointestinal Verified 03/01/24 11:48 Upset Vital Signs Vital Signs - 24 hr 03/17/24 10:50 03/17/24 14:58 03/17/24 17:40 Temperature 97.6 F 97.6 F 97.4 F L Pulse Rate 83 80 90 Respiratory Rate 16 16 Blood Pressure 113/65 110/70 108/62 Pulse Oximetry 97 100 98 03/17/24 17:55 03/17/24 18:05 Temperature Pulse Rate 79 80 Respiratory Rate 18 18 Blood Pressure Pulse Oximetry Exam Narrative: General: Well-developed, mildly ill-appearing male sitting up in bed in no acute distress. Weight: 84.1 kg. BMI: 28.2. HEENT: PERRL, EOMI. Sclera anicteric. Conjunctiva mildly injected. Oral mucosa is tacky. Some missing teeth. Neck: Supple. Mild jugular venous distention. Respiratory: Respirations are nonlabored and he is speaking full sentences. Currently on 2 L nasal cannula. Fine crackles heard at the bases with occasional wheezing. Cardiovascular: Irregularly irregular rate and rhythm with S1-S2. Systolic murmurs heard at the sternal border and apex. Gastrointestinal: Abdomen is soft, nontender, and nondistended with positive bowel sounds. Genitourinary: Gan catheter draining light yellow urine. Skin: Warm and dry. No rash or lesions on limited exam. Extremities: No cyanosis or clubbing. 3+ bilateral lower extremity edema, left greater than right. Neurological: Alert. Cranial nerves 2-12 are grossly intact. No gross focal deficits to casual conversation. Psychiatric: Pleasant and cooperative with normal mood and affect. H&P: Results Labs Labs: Short CBC 03/17/24 Range/Units 12:23 WBC 4.3 L (4.5-10.0) K/mm3 Hgb 12.1 L (14.0-18.0) g/dL Hct 38.3 L (42.0-52.0) % Plt Count 117 L (150-375) k/mm3 BMP 03/17/24 12:23 Sodium 131 L Potassium 4.2 Chloride 95 L Carbon Dioxide 33 H BUN 17 Creatinine 0.70 Glucose 114 H Calcium 8.5 Liver Function 03/17/24 Range/Units 12:23 Total Bilirubin 1.1 (0.2-1.3) mg/dL AST 34 (17-59) U/L ALT 21 (6-50) U/L Alkaline Phosphatase 75 (38-126) U/L Albumin 3.4 L (3.5-5.1) g/dL Impressions Chest X-Ray 03/17/24 13:01 Impression: Small right pleural effusion. Probable bibasilar pulmonary edema/atelectasis versus pneumonia. Chest CTA 03/17/24 16:16 IMPRESSION: 1. No central pulmonary embolism in the main and lobar pulmonary arteries and of the arteries in the bilateral upper lobes. Assessment of the segmental and sub segmental pulmonary arteries in the lower lungs is essentially nondiagnostic due to prominent respiratory motion. 2. Moderate-sized posterior layering right pleural effusion. 3. Mild emphysema. 4. Patchy airspace opacities in the posterior right upper lobe and in the left lower lobe which could represent atelectasis or pneumonia. 5. Cardiomegaly with right heart predominance and with reflux of contrast into the inferior vena cava consistent with tricuspid regurgitation. Assessment and Plan Assessment and plan (1) CHF exacerbation: Qualifiers: Heart failure type: unspecified Qualified Code(s): I50.9 - Heart fail ure, unspecified Code(s): I50.9 - Heart failure, unspecified Status: Acute (2) Hyponatremia: Code(s): E87.1 - Hypo-osmolality and hyponatremia Status: Acute (3) Hypomagnesemia: Code(s): E83.42 - Hypomagnesemia Status: Acute (4) Chronic anemia: Code(s): D64.9 - Anemia, unspecified Status: Acute (5) Thrombocytopenia: Code(s): D69.6 - Thrombocytopenia, unspecified Status: Acute (6) Hypertension: Code(s): I10 - Essential (primary) hypertension Status: Acute (7) Chronic atrial fibrillation: Code(s): I48.20 - Chronic atrial fibrillation, unspecified Status: Acute (8) Type 2 diabetes mellitus: Code(s): E11.9 - Type 2 diabetes mellitus without complications Status: Acute (9) Chronic obstructive pulmonary disease: Code(s): J44.9 - Chronic obstructive pulmonary disease, unspecified Status: Acute Plan The patient presented to the emergency department for evaluation of swelling and weight gain as detailed in HPI. Labs, imaging, EKG, and all reports were personally reviewed. Clinically he is volume overloaded and will be diuresed with close monitoring of volume status, renal function, and electrolytes. Magnesium is low and will be replaced and monitored. Sodium should improve with diuresis. Echocardiogram ordered as he has not had 1 for well over a year. He is chronically in atrial fibrillation is rate controlled. Continue apixaban for stroke prophylaxis. Blood pressures were reviewed and they are stable. Hold metformin as he received IV contrast. Initiate sliding scale insulin, Accu- Cheks, and hypoglycemic protocol. Chronic anemia and thrombocytopenia are stable on review of previous labs. No evidence to suggest COPD exacerbation. His home medications will be reviewed and resumed as appropriate. Findings and treatment plan were discussed with the patient. Questions were solicited and answered to satisfaction. The patient's medical management will be taken over by the hospitalist team in a.m. Quality VTE Prophylaxis VTE prophylaxis: pharmacologic ordered (on apixaban) The patient has been admitted under observation status. Hospitalist MIPS Advance Care Plan I have confirmed that the patient's Advanced Care Plan is present, code status is documented, or surrogate decision maker is listed in patient medical record.: Yes Medication Reconciliation I have utilized all available resources to obtain, update and review the patients current medications (includes all prescriptions, OTC, herbals, cannabis, and nutritional supplements).: Yes
[2024-03-17] MEDS: AZITHROMYCIN 500 MG/NS 250 ML 500 MG/250 ML BAG 250 MG IVPB (18:25)
--- NOTE | 2024-03-17 21:59 | ADMGEN ---
This patient, Marcos Echeverria, was admitted to Medical Room 244-. Patient/family oriented to hospital policies and general routines including ID bracelet, bed and alarms, visiting hours, pain management, procedures, bathroom and other care routines, personal items, smoking policy, room service/diet, and visiting hours. Information on how to activate the Rapid Response Team has been discussed. Patient/Family are encouraged to report perceived risks to care and to ask questions if they do not understand what they are told or what they should do.
[2024-03-18] VITALS (15 sets, daily range): BP systolic 98–131; BP diastolic 60–79; PULSE 65–119; RESP 18–20; TEMP 36.3–36.6; O2SAT 94–99
[2024-03-18] LABS: Add Urine Microscopic? YES; Appearance Urine Clear (Clear); Bacteria Urine None Seen /hpf; Bilirubin Urine Negative (Negative); Blood Urine 1+ (Negative); Color Urine Yellow (Yellow); Glucose Urine UA Negative (Negative); Ketones Urine Negative (Negative); Leukocyte Esterase Ur 1+ LEU/UL (Negative); Nitrate Urine Negative (Negative); Non Pathogenic Casts 0-2; Protein Urine Negative (Negative); RBC Urine 0-2 /hpf (0-2); Specific Grav Ur 1.011 (1.001-1.035); Squamous Epithelial Cell Urine None Seen /hpf (Few); pH Urine 5.5 (5.0-9.0)
[2024-03-18] MEDS: TEMAZEPAM (*CRX) 15 MG CAPSULE PO ×2 (00:30→23:00)
[2024-03-18 00:33] LABS: Hemoglobin A1C 6.4 % (<5.7)
--- NOTE | 2024-03-18 06:00 | ECHO_ITS ---
Patient Info Name: Marcos Echeverria Age: 78 years : 1945 Gender: Male Ht: 68 in Wt: 185 lbs BSA: 2.03 m2 HR: 91 bpm BP: 116 / 79 mmHg Heart Rhythm: Atrial Fibrillation Technical Quality: Fair Exam Date: 03/18/2024 3:00 PM Exam Location: Echo Lab Exam Room: [facility] Patient Status: Inpatient Admit Date: 03/17/2024 Staff Ordering Physician: Joaquina Hollingsworth PA-C Frame Aligner: Adrienne Johnson RDCS Attending Provider: Jack Reyna MD Referring Physician: Darrick FISHER; Exam Type: CA echo doppler color flow Study Info Complete two-dimensional, color flow and Doppler transthoracic echocardiogram is performed. Summary 1. Complete two-dimensional, color flow and Doppler transthoracic echocardiogram is performed. 2. Normal LV size and concentric LVH preserved LV fxn. 3. Enlarged RV mild hypokinesis. 4. Severe TR with severe PHTN. 5. Biatrial dilatation. 6. Moderate MR. Left Ventricle Left ventricular chamber dimension is normal. Left ventricular systolic function is normal, estimated at 60-65%. There is mildly increased left ventricular wall thickness. Right Ventricle Prominent right ventricular trabeculations are visualized. Right ventricular chamber dimension is severely enlarged. Right ventricular systolic function is reduced. Left Atria Left atrial chamber dimension is severely enlarged. Right Atria Right atrial chamber dimension is severely enlarged. Aortic Valve The aortic valve is trileaflet. There is mild aortic valve sclerosis. There is no aortic valve regurgitation. Pulmonic Valve The pulmonic valve is not well visualized. Mitral Valve The mitral valve has normal leaflets. There is moderate mitral valve regurgitation. There is mild mitral valve calcification. Tricuspid Valve Dilated tricuspid annulus. The tricuspid valve leaflets are normal. There is severe tricuspid valve regurgitation. Severe pulmonary hypertension, estimated pulmonary arterial systolic pressure is 67 mmHg. Pericardium/Pleural The pericardium appears normal. There is no pericardial effusion. Aorta The aortic root size at the sinus of Valsalva is normal. Left Ventricular Outflow Tract Name Value Normal LVOT 2D LVOT Diameter 2.0 cm Pulmonic Valve Name Value Normal PV Doppler PV Peak Gradient 2 mmHg PV Regurgitation Doppler LA Peak End Diastolic Velocity 156 cm/s Tricuspid Valve Name Value Normal TV Regurgitation Doppler TR Peak Velocity 343 cm/s TR Peak Gradient 47 mmHg Estimated PAP/RSVP RA Pressure 20 mmHg <=5 PA Systolic Pressure 67 mmHg <36 RV Systolic Pressure 67 mmHg <36 Aortic Valve Name Value Normal AV Regurgitation 2D LVOT Area 3.1 cm2 Ventricles Name Value Normal LV Dimensions 2D/MM LVOT Diameter 2.0 cm Atria Name Value Normal RA Dimensions RA Area (4C) 49.5 cm2 <=18.0 Report Signatures
[2024-03-18 06:08] LABS: Hematocrit 36.2 % (42.0-52.0); Hemoglobin 11.6 g/dL (14.0-18.0); Immature Platelet Fraction Pct 3.8 % (0.9-11.2); Mean Corpuscular Hemoglobin 27.2 pg (26-34); Mean Corpuscular Volume 84.8 fl (80-100); Mean Platelet Volume 9.6 fl (7.4-10.4); Platelet Count Result 99 k/mm3 (150-375); Red Blood Count 4.27 M/mm3 (4.6-6.20); Red Cell Distribution Width 19.3 % (11.5-14.5); White Blood Count 3.3 K/mm3 (4.5-10.0)
[2024-03-18 06:23] LABS: Blood Urea Nitrogen 17 mg/dL (9-20); Calcium 8.2 mg/dL (8.4-10.2); Carbon Dioxide > 40 mmol/L (22-30); Chloride 92 mmol/L (98-107); Estimated CRCL calculation 63 ml/min; Estimated Glomerular Filt Rate > 60; Glucose 80 mg/dL (65-110); Magnesium 1.3 mg/dL (1.6-2.3); Potassium 3.8 mmol/L (3.4-5.0); Sodium 132 mmol/L (137-145)
[2024-03-18 08:40] LABS: Glucose Point of Care 73 mg/dl (65-105)
[2024-03-18] MEDS: CHOLECALCIFEROL 1,000 UNITS TABLET 2000 UNITS PO (10:01)
[2024-03-18] MEDS: atenoloL 50 MG TABLET PO (10:01)
[2024-03-18] MEDS: TAMSULOSIN HCL 0.4 MG CAPSULE PO (10:01)
[2024-03-18] MEDS: SIMVASTATIN 20 MG TABLET PO (10:01)
[2024-03-18] MEDS: PANTOPRAZOLE 40 MG TABLET PO (10:01)
[2024-03-18] MEDS: dilTIAZem HCL 60 MG TABLET PO ×2 (10:02→21:30)
[2024-03-18] MEDS: APIXABAN 5 MG TABLET PO ×2 (10:02→21:29)
[2024-03-18] MEDS: FUROSEMIDE INJ 40 MG/4 ML VIAL IV PUSH ×2 (10:02→18:39)
[2024-03-18] MEDS: MAGNESIUM SULF 2 GM/WATER 50ML 2 GM/50 ML BAG IVPB (10:02)
[2024-03-18] MEDS: POTASSIUM CHLORIDE 20 MEQ ER TABLET 40 MEQ PO (10:07)
--- NOTE | 2024-03-18 11:53 | P.PNIM_ITS ---
Progress Note: A&P Assessment and Plan (1) CHF exacerbation: Qualifiers: Heart failure type: unspecified Qualified Code(s): I50.9 - Heart failure, unspecified Code(s): I50.9 - Heart failure, unspecified Status: Acute Assessment and Plan: * Lasix 40 mg ivp BID. * Edema improved. Patient with a 4 lb 7oz weight loss. * Potassium 3.8, patient given Potassium Chloride 40 meq PO x1. * Monitor labs. * Echocardiogram ordered. * Venous dopplers. (2) Hyponatremia: Code(s): E87.1 - Hypo-osmolality and hyponatremia Status: Acute Assessment and Plan: * Sodium 132. * Monitor labs. (3) Hypomagnesemia: Code(s): E83.42 - Hypomagnesemia Status: Acute Assessment and Plan: * Magnesium 1.3. * Magnesium Sulfate 2 gram IVPB x1 given. * Repeat magnesium 2.0. * Monitor labs. (4) Chronic anemia: Code(s): D64.9 - Anemia, unspecified Status: Acute Assessment and Plan: * H&H 11.6/36.2 * monitor labs. (5) Thrombocytopenia: Code(s): D69.6 - Thrombocytopenia, unspecified Status: Acute Assessment and Plan: * Platelets 99. * Monitor labs. (6) Hypertension: Code(s): I10 - Essential (primary) hypertension Status: Acute Assessment and Plan: * Current blood pressure is 131/72. * Continue Atenolol 50 mg PO daily. (7) Chronic atrial fibrillation: Code(s): I48.20 - Chronic atrial fibrillation, unspecified Status: Acute Assessment and Plan: * continue Apixaban 5 mg PO q 12 and diltiazem 60 mg PO q 8. (8) Type 2 diabetes mellitus: Code(s): E11.9 - Type 2 diabetes mellitus without complications Status: Acute Assessment and Plan: * Hold metformin as he received IV contrast. * Sliding scale insulin, Accu-Cheks, and hypoglycemic protocol. (9) Chronic obstructive pulmonary disease: Code(s): J44.9 - Chronic obstructive pulmonary disease, unspecified Status: Acute Assessment and Plan: * Albuterol 2-4 puff QID PRN. Subjective Date/time seen: 03/18/24 11:53 Interval history: Patient sitting up in bed. Patient denies chest pain, palpitations, headache, dizziness, nausea, or vomiting. Patient reports feeling as if his legs are smaller today. Review of Systems Review of Systems: All systems reviewed & are unremarkable except as noted in HPI and below Exam Const: General: comfortable and no acute distress Eyes: Sclera: sclerae normal Resp: Effort & Inspection: normal respiratory effort Auscultation: diminished lung sounds Cardio: Rhythm: abnormal rhythm (Afib 99) irregularly irregular GI: GI Palp: Yes Soft to palpation Auscultation: normal bowel sounds Urinary Catheter: Urinary Catheter: patent and draining (satinder colored) Skin: General skin exam: no rashes or lesions noted Neuro: Speech: normal speech Extrem: General: pedal edema bilaterally 2+ Psych: Mental Status: mental status grossly normal Affect: normal affect Objective Data Vital Signs Vital Signs: Vital Signs - 24 hr 03/17/24 14:58 03/17/24 17:40 03/17/24 17:55 Temperature 97.6 F 97.4 F L Pulse Rate 80 90 79 Respiratory Rate 16 18 Blood Pressure 110/70 108/62 Pulse Oximetry 100 98 Oxygen Delivery Oxygen Flow Rate Fraction of Inspired Oxygen 03/17/24 18:00 03/17/24 18:01 03/17/24 18:05 Temperature Pulse Rate 85 80 Respiratory Rate 29 H 18 Blood Pressure 137/81 Pulse Oximetry 98 Oxygen Delivery Oxygen Flow Rate 2 Fraction of Inspired Oxygen 03/17/24 18:44 03/17/24 19:15 03/17/24 21:00 Temperature 97.8 F Pulse Rate 79 83 82 Respiratory Rate 20 21 H 18 Blood Pressure 137/81 96/66 L 112/68 Pulse Oximetry 98 100 98 Oxygen Delivery Oxygen Flow Rate Fraction of Inspired Oxygen 03/17/24 21:50 03/17/24 21:59 03/18/24 00:00 Temperature 97.3 F L 97.3 F L Pulse Rate 91 86 Respiratory Rate 18 18 Blood Pressure 109/68 109/67 Pulse Oximetry 99 99 98 Oxygen Delivery Nasal Cannula Oxygen Flow Rate 2 Fraction of Inspired Oxygen 03/18/24 00:00 03/18/24 04:00 03/18/24 04:00 Temperature 97.9 F Pulse Rate 83 85 77 Respiratory Rate 18 Blood Pressure 129/79 Pulse Oximetry 95 Oxygen Delivery Oxygen Flow Rate Fraction of Inspired Oxygen 03/18/24 06:26 03/18/24 08:00 03/18/24 09:48 Temperature 97.4 F L 97.9 F Pulse Rate 91 95 Respiratory Rate 18 18 Blood Pressure 116/79 131/72 Pulse Oximetry 99 94 94 Oxygen Delivery Nasal Cannula Oxygen Flow Rate 1 Fraction of Inspired Oxygen 03/18/24 10:01 Temperature Pulse Rate 70 Respiratory Rate Blood Pressure Pulse Oximetry Oxygen Delivery Oxygen Flow Rate Fraction of Inspired Oxygen Intake/Output Intake/Output: Intake & Output 03/15/24 03/16/24 03/17/24 03/18/24 23:59 23:59 23:59 23:59 Intake Total 350 240 Output Total 1200 5200 Balance -850 -5950 Meds/Results Medications: Active Medications Generic Name Dose Route Start Last Admin Trade Name Freq PRN Reason Stop Dose Admin Acetaminophen 650 mg 03/17/24 23:57 Acetaminophen 325 Mg Tablet PO Q6H PRN Mild Pain (1-3) or Fever Albuterol 2 - 4 puff 03/18/24 08:26 Albuterol Sulfate (*Sp) Aerosol 1 Puff INHALATION QID PRN shortness of breath or wheezing Apixaban 5 mg 03/18/24 09:00 03/18/24 10:02 Apixaban 5 Mg Tablet PO 5 mg Q12HR MK Administration Atenolol 50 mg 03/18/24 09:00 03/18/24 10:01 Atenolol 50 Mg Tablet PO 50 mg DAILY MK Administration Cyanocobalamin 500 mcg 03/20/24 09:00 Cyanocobalamin 500 Mcg Tablet PO [id number] MK Dextrose 12.5 gm 03/17/24 23:57 Dextrose 50% 25 Gm/50 Ml Syringe IV PUSH PRN PRN Hypoglycemia Protocol Diltiazem HCl 60 mg 03/18/24 08:30 03/18/24 10:02 Diltiazem Hcl 60 Mg Tablet PO 60 mg Q8HR MK Administration Furosemide 40 mg 03/18/24 09:00 03/18/24 10:02 Furosemide Inj 40 Mg/4 Ml Vial IV PUSH 40 mg BID MK Administration Glucagon 1 mg 03/17/24 23:57 Glucagon For Inj 1 Mg Vial IM PRN PRN Hypoglycemia Protocol Glucose 15 gm 03/17/24 23:57 Glucose Oral Gel 15 Gm Of Glucse In 37.5 Gm Tube PO PRN PRN Hypoglycemia Protocol Dextrose 1,000 mls @ 100 mls/hr 03/17/24 23:57 Dextrose 5% 1,000 Ml IVPB PRN PRN Hypoglycemia Protocol Insulin Aspart 3 - 6 units 03/18/24 08:00 03/18/24 08:42 Insulin Aspart (*Bkc) 100 Units/Ml SUB-Q Not Given TIDWM MK Protocol Insulin Aspart 1 - 3 units 03/18/24 21:00 Insulin Aspart (*Bkc) 100 Units/Ml SUB-Q HS MK Protocol Pantoprazole Sodium 40 mg 03/18/24 09:00 03/18/24 10:01 Pantoprazole 40 Mg Tablet PO 04/17/24 08:59 40 mg DAILY MK Administration Perflutren Lipid Microsphere 0 ml 03/17/24 18:21 Perflutren Lipid Microspheres 1.5 Ml Vial Diluted To 10 Ml Total Volume IV PUSH 03/20/24 18:23 ONCE PRN adequate visualization Protocol Perflutren Lipid Microsphere 0 ml 03/17/24 23:57 Perflutren Lipid Microspheres 1.5 Ml Vial Diluted To 10 Ml Total Volume IV PUSH 03/20/24 23:57 ONCE PRN adequate visualization Protocol Simvastatin 20 mg 03/18/24 09:00 03/18/24 10:01 Simvastatin 20 Mg Tablet PO 20 mg DAILY MK Administration Tamsulosin HCl 0.4 mg 03/18/24 09:00 03/18/24 10:01 Tamsulosin Hcl 0.4 Mg Capsule PO 0.4 mg DAILY MK Administration Temazepam 15 mg 03/18/24 08:31 Temazepam (*Crx) 15 Mg Capsule PO QHS PRN sleep Vitamin D 2,000 units 03/18/24 09:00 03/18/24 10:01 Cholecalciferol 1,000 Units Tablet PO 2,000 units DAILY MK Administration Radiology Results: ITS Impressions Chest X-Ray 03/17/24 13:01 Impression: Small right pleural effusion. Probable bibasilar pulmonary edema/atelectasis versus pneumonia. Chest CTA 03/17/24 16:16 IMPRESSION: 1. No central pulmonary embolism in the main and lobar pulmonary arteries and of the arteries in the bilateral upper lobes. Assessment of the segmental and subsegmental pulmonary arteries in the lower lungs is essentially nondiagnostic due to prominent respiratory motion. 2. Moderate-sized posterior layering right pleural effusion. 3. Mild emphysema. 4. Patchy airspace opacities in the posterior right upper lobe and in the left lower lobe which could represent atelectasis or pneumonia. 5. Cardiomegaly with right heart predominance and with reflux of contrast into the inferior vena cava consistent with tricuspid regurgitation. Labs Labs: Laboratory Results - last 24 hr 03/17/24 03/17/24 03/17/24 12:22 12:23 23:20 WBC 4.3 L RBC 4.46 L Hgb 12.1 L Hct 38.3 L MCV 85.9 MCH 27.1 MCHC 31.6 L RDW 19.4 H Plt Count 117 L MPV 9.8 Immature Gran % (Auto) 0.2 Neut % (Auto) 76.1 H Lymph % (Auto) 14.5 L [place] % (Auto) 8.5 Eos % (Auto) 0.0 Baso % (Auto) 0.7 Lymph # (Auto) 0.63 L [place] # (Auto) 0.4 Eos # (Auto) 0.0 Baso # (Auto) 0.0 Abs Immat Gran (auto) 0.01 Absolute Neuts (auto) 3.3 Absolute Nucleated RBC 0.000 Nucleated RBC % 0.0 % Immature Plt Fraction PT 22.3 H INR 1.9 APTT 35.1 D-Dimer 3.37 H Sodium 131 L Potassium 4.2 Chloride 95 L Carbon Dioxide 33 H Anion Gap 3 L BUN 17 Creatinine 0.70 Estim Creat Clear Calc 71 Estimated GFR > 60 Glucose 114 H POC Capillary Glucose Hemoglobin A1c 6.4 H Calcium 8.5 Magnesium 1.1 L Total Bilirubin 1.1 AST 34 ALT 21 Alkaline Phosphatase 75 NT-Pro-B Natriuret Pep 2950 H Total Protein 7.0 Albumin 3.4 L TSH (Reflex) Urine Color Yellow Urine Appearance Clear Urine pH 5.5 Ur Specific [place] 1.011 Urine Protein Negative Urine Glucose (UA) Negative Urine Ketones Negative Ur Blood (Man) 1+ H Urine Nitrate Negative Urine Bilirubin Negative Urine Urobilinogen 1.0 Leukocyte Esterase Rfl 1+ H Urine RBC 0-2 Urine WBC 6-10 H Ur Squamous Epith Cells None seen Urine Bacteria None seen Urine Casts 0-2 03/18/24 03/18/24 05:55 08:19 WBC 3.3 L RBC 4.27 L Hgb 11.6 L Hct 36.2 L MCV 84.8 MCH 27.2 MCHC 32.0 RDW 19.3 H Plt Count 99 L MPV 9.6 Immature Gran % (Auto) Neut % (Auto) Lymph % (Auto) [place] % (Auto) Eos % (Auto) Baso % (Auto) Lymph # (Auto) [place] # (Auto) Eos # (Auto) Baso # (Auto) Abs Immat Gran (auto) Absolute Neuts (auto) Absolute Nucleated RBC Nucleated RBC % % Immature Plt Fraction 3.8 PT INR APTT D-Dimer Sodium 132 L Potassium 3.8 Chloride 92 L Carbon Dioxide > 40 H Anion Gap BUN 17 Creatinine 0.80 Estim Creat Clear Calc 63 Estimated GFR > 60 Glucose 80 POC Capillary Glucose 73 Hemoglobin A1c Calcium 8.2 L Magnesium 1.3 L Total Bilirubin AST ALT Alkaline Phosphatase NT-Pro-B Natriuret Pep Total Protein Albumin TSH (Reflex) 2.700 Urine Color Urine Appearance Urine pH Ur Specific [place] Urine Protein Urine Glucose (UA) Urine Ketones Ur Blood (Man) Urine Nitrate Urine Bilirubin Urine Urobilinogen Leukocyte Esterase Rfl Urine RBC Urine WBC Ur Squamous Epith Cells Urine Bacteria Urine Casts Quality VTE Prophylaxis VTE prophylaxis: pharmacologic ordered (on apixaban)
[2024-03-18 12:39] LABS: Glucose Point of Care 241 mg/dl (65-105)
[2024-03-18] MEDS: INSULIN ASPART (*BKC) 100 UNITS/ML SUB-Q (14:03)
[2024-03-18 17:20] LABS: Glucose Point of Care 65 mg/dl (65-105)
[2024-03-18 18:22] LABS: Glucose Point of Care 103 mg/dl (65-105)
[2024-03-18 21:08] LABS: Glucose Point of Care 98 mg/dl (65-105)
[2024-03-19] VITALS (7 sets, daily range): BP systolic 101–111; BP diastolic 62–72; PULSE 66–85; RESP 14–20; TEMP 36.3–36.9; O2SAT 96–99
[2024-03-19 06:32] LABS: Basophils Percent Auto 0.5 % (0.2-1.2); Eosinophils Percent Auto 0.5 % (0-4.4); Hematocrit 35.1 % (42.0-52.0); Immature Granulocyte Absolute 0.01 K/mm3 (0.00-0.031); Immature Granulocyte Percent A 0.3 % (0-0.5); Immature Platelet Fraction Pct 3.8 % (0.9-11.2); Lymphocytes Absolute Auto 0.91 K/mm3 (0.9-3.2); Mean Corpuscular HGB Conc 31.3 g/dl (32-36); Mean Corpuscular Hemoglobin 26.7 pg (26-34); Mean Corpuscular Volume 85.2 fl (80-100); Mean Platelet Volume 9.5 fl (7.4-10.4); Monocytes Absolute Auto 0.5 K/mm3 (0.1-0.6); Monocytes Percent Auto 12.2 % (2.6-8.5); Neutrophils Absolute Auto 2.5 K/mm3 (1.3-6.7); Neutrophils Percent Auto 63.5 % (45.5-73.1); Platelet Count Result 117 k/mm3 (150-375); Red Blood Count 4.12 M/mm3 (4.6-6.20); Red Cell Distribution Width 19.4 % (11.5-14.5)
[2024-03-19] MEDS: dilTIAZem HCL 60 MG TABLET PO ×3 (06:49→21:09)
[2024-03-19 06:50] LABS: Alanine Aminotransferase 18 U/L (6-50); Albumin Level 3.1 g/dL (3.5-5.1); Alkaline Phosphatase 75 U/L (38-126); Aspartate Amino Transferase 32 U/L (17-59); Blood Urea Nitrogen 15 mg/dL (9-20); Calcium 8.1 mg/dL (8.4-10.2); Carbon Dioxide > 40 mmol/L (22-30); Chloride 92 mmol/L (98-107); Estimated CRCL calculation 63 ml/min; Estimated Glomerular Filt Rate > 60; Glucose 85 mg/dL (65-110); Magnesium 1.6 mg/dL (1.6-2.3); Sodium 132 mmol/L (137-145)
[2024-03-19 08:04] LABS: Glucose Point of Care 99 mg/dl (65-105)
[2024-03-19] MEDS: FUROSEMIDE INJ 40 MG/4 ML VIAL IV PUSH ×2 (08:19→16:23)
[2024-03-19] MEDS: APIXABAN 5 MG TABLET PO ×2 (08:19→21:09)
[2024-03-19] MEDS: TAMSULOSIN HCL 0.4 MG CAPSULE PO (08:19)
[2024-03-19] MEDS: CHOLECALCIFEROL 1,000 UNITS TABLET 2000 UNITS PO (08:19)
[2024-03-19] MEDS: SIMVASTATIN 20 MG TABLET PO (08:19)
[2024-03-19] MEDS: atenoloL 50 MG TABLET PO (08:19)
[2024-03-19] MEDS: PANTOPRAZOLE 40 MG TABLET PO (08:19)
[2024-03-19] MEDS: MAGNESIUM SULF 2 GM/WATER 50ML 2 GM/50 ML BAG IVPB (08:31)
--- NOTE | 2024-03-19 11:02 | PM.IMPN ---
Progress Note: A&P Assessment and Plan (1) CHF exacerbation: Qualifiers: Heart failure type: unspecified Qualified Code(s): I50.9 - Heart failure, unspecified Code(s): I50.9 - Heart failure, unspecified Status: Acute Assessment and Plan: Lasix 40 mg ivp BID. Edema to LE's. Patient with a 1 lb 12oz weight loss. Potassium 5.0. Monitor labs. Echocardiogram showed: Summary 1. Complete two-dimensional, color flow and Doppler transthoracic echocardiogram is performed. 2. Normal LV size and concentric LVH preserved LV fxn. 3. Enlarged RV mild hypokinesis. 4. Severe TR with severe PHTN.- Consult Cardiology. 5. Biatrial dilatation. 6. Moderate MR. Left Ventricle Left ventricular chamber dimension is normal. Left ventricular systolic function is normal, estimated at 60-65%. There is mildly increased left ventricular wall thickness. Venous doppler- negative. (2) Hyponatremia: Code(s): E87.1 - Hypo-osmolality and hyponatremia Status: Acute Assessment and Plan: Sodium 132. Monitor labs. (3) Hypomagnesemia: Code(s): E83.42 - Hypomagnesemia Status: Acute Assessment and Plan: Magnesium 1.6 Magnesium Sulfate 2 gram IVPB x1 given. Monitor labs. (4) Chronic anemia: Code(s): D64.9 - Anemia, unspecified Status: Acute Assessment and Plan: H&H 11.0/35.1 monitor labs. (5) Thrombocytopenia: Code(s): D69.6 - Thrombocytopenia, unspecified Status: Acute Assessment and Plan: Platelets 117. Monitor labs. (6) Hypertension: Code(s): I10 - Essential (primary) hypertension Status: Acute Assessment and Plan: Current blood pressure is 103/62. Continue Atenolol 50 mg PO daily. (7) Chronic atrial fibrillation: Code(s): I48.20 - Chronic atrial fibrillation, unspecified Status: Acute Assessment and Plan: continue Apixaban 5 mg PO q 12 and diltiazem 60 mg PO q 8. (8) Type 2 diabetes mellitus: Code(s): E11.9 - Type 2 diabetes mellitus without complications Status: Acute Assessment and Plan: Hold metformin as he received IV contrast. Sliding scale insulin, Accu-Cheks, and hypoglycemic protocol. (9) Chronic obstructive pulmonary disease: Code(s): J44.9 - Chronic obstructive pulmonary disease, unspecified Status: Acute Assessment and Plan: Albuterol 2-4 puff QID PRN. Subjective Date/time seen: 03/19/24 11:02 Interval history: Patient sitting up in chair. Patient denies chest pain, palpitations, headache, dizziness, nausea, or vomiting. Review of Systems Review of Systems: All systems reviewed & are unremarkable except as noted in HPI and below Exam Const: General: comfortable and no acute distress Eyes: Sclera: sclerae normal Resp: Effort & Inspection: normal respiratory effort Auscultation: diminished lung sounds Cardio: Rhythm: abnormal rhythm irregularly irregular (Afib 76. ) GI: GI Palp: Yes Soft to palpation : Male General Exam: Yes normal external exam Skin: General skin exam: no rashes or lesions noted Neuro: Speech: normal speech Extrem: General: pedal edema on the right 1+ and on the left 2+ Psych: Mental Status: mental status grossly normal Affect: normal affect Objective Data Vital Signs Vital Signs: Vital Signs - 24 hr 03/18/24 12:00 03/18/24 12:00 03/18/24 14:12 Temperature 97.7 F Pulse Rate 119 H 75 Respiratory Rate 20 Blood Pressure 98/60 L Pulse Oximetry 99 Oxygen Delivery Oxygen Flow Rate 03/18/24 16:00 03/18/24 18:30 03/18/24 20:00 Temperature 97.3 F L 97.6 F Pulse Rate 65 75 86 Respiratory Rate 18 18 Blood Pressure 116/70 111/60 Pulse Oximetry 99 98 Oxygen Delivery Oxygen Flow Rate 03/18/24 20:00 03/18/24 20:30 03/18/24 21:45 Temperature Pulse Rate 79 Respiratory Rate Blood Pressure Pulse Oximetry 98 98 Oxygen Delivery Nasal Cannula Oxygen Flow Rate 1.5 1 03/18/24 23:03 03/19/24 00:00 03/19/24 00:00 Temperature 97.6 F Pulse Rate 85 73 Respiratory Rate 18 Blood Pressure 105/69 Pulse Oximetry 94 96 Oxygen Delivery Nasal Cannula Oxygen Flow Rate 1 03/19/24 04:00 03/19/24 04:00 03/19/24 08:00 Temperature 97.6 F 97.4 F L Pulse Rate 80 83 84 Respiratory Rate 18 18 Blood Pressure 111/71 101/64 Pulse Oximetry 96 96 Oxygen Delivery Oxygen Flow Rate 03/19/24 08:19 Temperature Pulse Rate 83 Respiratory Rate Blood Pressure Pulse Oximetry Oxygen Delivery Oxygen Flow Rate Intake/Output Intake/Output: Intake & Output 03/16/24 03/17/24 03/18/24 03/19/24 23:59 23:59 23:59 23:59 Intake Total 350 720 540 Output Total 1200 7200 1400 Balance -850 -6480 -860 Meds/Results Medications: Active Medications Generic Name Dose Route Start Last Admin Trade Name Freq PRN Reason Stop Dose Admin Acetaminophen 650 mg 03/17/24 23:57 Acetaminophen 325 Mg Tablet PO Q6H PRN Mild Pain (1-3) or Fever Albuterol 2 - 4 puff 03/18/24 08:26 Albuterol Sulfate (*Sp) Aerosol 1 Puff INHALATION QID PRN shortness of breath or wheezing Apixaban 5 mg 03/18/24 09:00 03/19/24 08:19 Apixaban 5 Mg Tablet PO 5 mg Q12HR MK Administration Atenolol 50 mg 03/18/24 09:00 03/19/24 08:19 Atenolol 50 Mg Tablet PO 50 mg DAILY MK Administration Cyanocobalamin 500 mcg 03/20/24 09:00 Cyanocobalamin 500 Mcg Tablet PO [id number]@0900 MK Dextrose 12.5 gm 03/18/24 21:40 Dextrose 50% 25 Gm/50 Ml Syringe IV PUSH PRN PRN Hypoglycemia Protocol Diltiazem HCl 60 mg 03/18/24 08:30 03/19/24 06:49 Diltiazem Hcl 60 Mg Tablet PO 60 mg Q8HR MK Administration Furosemide 40 mg 03/18/24 09:00 03/19/24 08:19 Furosemide Inj 40 Mg/4 Ml Vial IV PUSH 40 mg BID MK Administration Glucagon 1 mg 03/18/24 21:40 Glucagon For Inj 1 Mg Vial IM PRN PRN Hypoglycemia Protocol Glucose 15 gm 03/18/24 21:40 Glucose Oral Gel 15 Gm Of Glucse In 37.5 Gm Tube PO PRN PRN Hypoglycemia Protocol Dextrose 1,000 mls @ 100 mls/hr 03/18/24 21:40 Dextrose 5% 1,000 Ml IVPB PRN PRN Hypoglycemia Protocol Insulin Aspart 2 - 5 units 03/19/24 08:00 03/19/24 08:20 Insulin Aspart (*Bkc) 100 Units/Ml SUB-Q Not Given TIDWM MK Protocol Insulin Aspart 1 - 2 units 03/19/24 21:00 Insulin Aspart (*Bkc) 100 Units/Ml SUB-Q HS [facility] Protocol Pantoprazole Sodium 40 mg 03/18/24 09:00 03/19/24 08:19 Pantoprazole 40 Mg Tablet PO 04/17/24 08:59 40 mg DAILY MK Administration Perflutren Lipid Microsphere 0 ml 03/17/24 18:21 Perflutren Lipid Microspheres 1.5 Ml Vial Diluted To 10 Ml Total Volume IV PUSH 03/20/24 18:23 ONCE PRN adequate visualization Protocol Perflutren Lipid Microsphere 0 ml 03/17/24 23:57 Perflutren Lipid Microspheres 1.5 Ml Vial Diluted To 10 Ml Total Volume IV PUSH 03/20/24 23:57 ONCE PRN adequate visualization Protocol Simvastatin 20 mg 03/18/24 09:00 03/19/24 08:19 Simvastatin 20 Mg Tablet PO 20 mg DAILY MK Administration Tamsulosin HCl 0.4 mg 03/18/24 09:00 03/19/24 08:19 Tamsulosin Hcl 0.4 Mg Capsule PO 0.4 mg DAILY MK Administration Temazepam 15 mg 03/18/24 08:31 03/18/24 23:00 Temazepam (*Crx) 15 Mg Capsule PO 15 mg QHS PRN Administration sleep Vitamin D 2,000 units 03/18/24 09:00 03/19/24 08:19 Cholecalciferol 1,000 Units Tablet PO 2,000 units DAILY MK Administration Radiology Results: ITS Impressions Chest X-Ray 03/17/24 13:01 Impression: Small right pleural effusion. Probable bibasilar pulmonary edema/atelectasis versus pneumonia. Chest CTA 03/17/24 16:16 IMPRESSION: 1. No central pulmonary embolism in the main and lobar pulmonary arteries and of the arteries in the bilateral upper lobes. Assessment of the segmental and subsegmental pulmonary arteries in the lower lungs is essentially nondiagnostic due to prominent respiratory motion. 2. Moderate-sized posterior layering right pleural effusion. 3. Mild emphysema. 4. Patchy airspace opacities in the posterior right upper lobe and in the left lower lobe which could represent atelectasis or pneumonia. 5. Cardiomegaly with right heart predominance and with reflux of contrast into the inferior vena cava consistent with tricuspid regurgitation. Venous Doppler Study 03/18/24 20:19 IMPRESSION: Negative bilateral lower extremity venous US. No deep vein thrombosis. Labs Labs: Laboratory Results - last 24 hr 03/18/24 03/18/24 03/18/24 12:15 12:16 17:07 WBC RBC Hgb Hct MCV MCH MCHC RDW Plt Count MPV Immature Gran % (Auto) Neut % (Auto) Lymph % (Auto) [place] % (Auto) Eos % (Auto) Baso % (Auto) Lymph # (Auto) [place] # (Auto) Eos # (Auto) Baso # (Auto) Abs Immat Gran (auto) Absolute Neuts (auto) Absolute Nucleated RBC Nucleated RBC % % Immature Plt Fraction Sodium Potassium Chloride Carbon Dioxide Anion Gap BUN Creatinine Estim Creat Clear Calc Estimated GFR Glucose POC Capillary Glucose 241 H 65 Calcium Magnesium 2.0 Total Bilirubin AST ALT Alkaline Phosphatase Total Protein Albumin 03/18/24 03/18/24 03/19/24 18:07 20:16 05:49 WBC 4.0 L RBC 4.12 L Hgb 11.0 L Hct 35.1 L MCV 85.2 MCH 26.7 MCHC 31.3 L RDW 19.4 H Plt Count 117 L MPV 9.5 Immature Gran % (Auto) 0.3 Neut % (Auto) 63.5 Lymph % (Auto) 23.0 [place] % (Auto) 12.2 H Eos % (Auto) 0.5 Baso % (Auto) 0.5 Lymph # (Auto) 0.91 [place] # (Auto) 0.5 Eos # (Auto) 0.0 Baso # (Auto) 0.0 Abs Immat Gran (auto) 0.01 Absolute Neuts (auto) 2.5 Absolute Nucleated RBC 0.000 Nucleated RBC % 0.0 % Immature Plt Fraction 3.8 Sodium 132 L Potassium 5.0 Chloride 92 L Carbon Dioxide > 40 H Anion Gap BUN 15 Creatinine 0.80 Estim Creat Clear Calc 63 Estimated GFR > 60 Glucose 85 POC Capillary Glucose 103 98 Calcium 8.1 L Magnesium 1.6 Total Bilirubin 1.0 AST 32 ALT 18 Alkaline Phosphatase 75 Total Protein 6.0 L Albumin 3.1 L 03/19/24 07:48 WBC RBC Hgb Hct MCV MCH MCHC RDW Plt Count MPV Immature Gran % (Auto) Neut % (Auto) Lymph % (Auto) [place] % (Auto) Eos % (Auto) Baso % (Auto) Lymph # (Auto) [place] # (Auto) Eos # (Auto) Baso # (Auto) Abs Immat Gran (auto) Absolute Neuts (auto) Absolute Nucleated RBC Nucleated RBC % % Immature Plt Fraction Sodium Potassium Chloride Carbon Dioxide Anion Gap BUN Creatinine Estim Creat Clear Calc Estimated GFR Glucose POC Capillary Glucose 99 Calcium Magnesium Total Bilirubin AST ALT Alkaline Phosphatase Total Protein Albumin Quality VTE Prophylaxis VTE prophylaxis: pharmacologic ordered (on apixaban)
[2024-03-19 13:01] LABS: Glucose Point of Care 155 mg/dl (65-105)
[2024-03-19 17:20] LABS: Glucose Point of Care 129 mg/dl (65-105)
[2024-03-19 21:54] LABS: Glucose Point of Care 170 mg/dl (65-105)
[2024-03-19] MEDS: TEMAZEPAM (*CRX) 15 MG CAPSULE PO (23:08)
[2024-03-20] VITALS (8 sets, daily range): BP systolic 92–118; BP diastolic 57–65; PULSE 57–89; RESP 12–16; TEMP 36.2–36.6; O2SAT 97–99
[2024-03-20] MEDS: dilTIAZem HCL 60 MG TABLET PO ×3 (05:19→22:00)
[2024-03-20 05:50] LABS: Basophils Percent Auto 0.2 % (0.2-1.2); Eosinophils Percent Auto 0.7 % (0-4.4); Hematocrit 33.6 % (42.0-52.0); Hemoglobin 10.8 g/dL (14.0-18.0); Immature Granulocyte Absolute 0.01 K/mm3 (0.00-0.031); Immature Granulocyte Percent A 0.2 % (0-0.5); Immature Platelet Fraction Pct 3.6 % (0.9-11.2); Lymphocytes Absolute Auto 0.96 K/mm3 (0.9-3.2); Lymphocytes Percent Auto 23.8 % (18.3-44.2); Mean Corpuscular HGB Conc 32.1 g/dl (32-36); Mean Corpuscular Hemoglobin 27.5 pg (26-34); Mean Corpuscular Volume 85.5 fl (80-100); Mean Platelet Volume 9.9 fl (7.4-10.4); Monocytes Absolute Auto 0.5 K/mm3 (0.1-0.6); Monocytes Percent Auto 11.9 % (2.6-8.5); Neutrophils Absolute Auto 2.6 K/mm3 (1.3-6.7); Neutrophils Percent Auto 63.2 % (45.5-73.1); Platelet Count Result 116 k/mm3 (150-375); Red Blood Count 3.93 M/mm3 (4.6-6.20); Red Cell Distribution Width 19.1 % (11.5-14.5)
[2024-03-20 06:17] LABS: Alanine Aminotransferase 16 U/L (6-50); Albumin Level 2.9 g/dL (3.5-5.1); Alkaline Phosphatase 71 U/L (38-126); Aspartate Amino Transferase 31 U/L (17-59); Blood Urea Nitrogen 16 mg/dL (9-20); Calcium 7.8 mg/dL (8.4-10.2); Carbon Dioxide > 40 mmol/L (22-30); Chloride 90 mmol/L (98-107); Estimated CRCL calculation 71 ml/min; Estimated Glomerular Filt Rate > 60; Glucose 79 mg/dL (65-110); Magnesium 1.7 mg/dL (1.6-2.3); Potassium 4.4 mmol/L (3.4-5.0); Sodium 128 mmol/L (137-145)
[2024-03-20 08:30] LABS: Glucose Point of Care 136 mg/dl (65-105)
[2024-03-20] MEDS: TAMSULOSIN HCL 0.4 MG CAPSULE PO (09:50)
[2024-03-20] MEDS: FUROSEMIDE INJ 40 MG/4 ML VIAL IV PUSH ×2 (09:56→17:24)
[2024-03-20] MEDS: PANTOPRAZOLE 40 MG TABLET PO (09:57)
[2024-03-20] MEDS: SIMVASTATIN 20 MG TABLET PO (09:57)
[2024-03-20] MEDS: APIXABAN 5 MG TABLET PO ×2 (09:57→22:00)
[2024-03-20] MEDS: CHOLECALCIFEROL 1,000 UNITS TABLET 2000 UNITS PO (09:57)
[2024-03-20] MEDS: atenoloL 50 MG TABLET PO (09:57)
[2024-03-20] MEDS: MAGNESIUM SULF 2 GM/WATER 50ML 2 GM/50 ML BAG IVPB (10:00)
--- NOTE | 2024-03-20 10:45 | P.PNIM_ITS ---
Progress Note: A&P Assessment and Plan (1) CHF exacerbation: Qualifiers: Heart failure type: unspecified Qualified Code(s): I50.9 - Heart failure, unspecified Code(s): I50.9 - Heart failure, unspecified Status: Acute Assessment and Plan: * Lasix 40 mg ivp BID. * Edema to LE's. * Potassium 4.4. * Monitor labs. * Echocardiogram showed: Summary 1. Complete two-dimensional, color flow and Doppler transthoracic echocardiogram is performed. 2. Normal LV size and concentric LVH preserved LV fxn. 3. Enlarged RV mild hypokinesis. 4. Severe TR with severe PHTN.- Consult Cardiology. 5. Biatrial dilatation. 6. Moderate MR. Left Ventricle Left ventricular chamber dimension is normal. Left ventricular systolic function is normal, estimated at 60-65%. There is mildly increased left ventricular wall thickness. * Venous doppler- negative. (2) Hyponatremia: Code(s): E87.1 - Hypo-osmolality and hyponatremia Status: Acute Assessment and Plan: * Sodium 128 * Monitor labs. (3) Hypomagnesemia: Code(s): E83.42 - Hypomagnesemia Status: Acute Assessment and Plan: * Magnesium 1.7 * Magnesium Sulfate 2 gram IVPB x1 given. * Monitor labs. (4) Chronic anemia: Code(s): D64.9 - Anemia, unspecified Status: Acute Assessment and Plan: * H&H 10.8/33.6. * monitor labs. (5) Thrombocytopenia: Code(s): D69.6 - Thrombocytopenia, unspecified Status: Acute Assessment and Plan: * Platelets 116. * Monitor labs. (6) Hypertension: Code(s): I10 - Essential (primary) hypertension Status: Acute Assessment and Plan: * Current blood pressure is 114/65. * Continue Atenolol 50 mg PO daily. (7) Chronic atrial fibrillation: Code(s): I48.20 - Chronic atrial fibrillation, unspecified Status: Acute Assessment and Plan: * continue Apixaban 5 mg PO q 12 and diltiazem 60 mg PO q 8. (8) Type 2 diabetes mellitus: Code(s): E11.9 - Type 2 diabetes mellitus without complications Status: Acute Assessment and Plan: * Hold metformin as he received IV contrast. * Sliding scale insulin, Accu-Cheks, and hypoglycemic protocol. (9) Chronic obstructive pulmonary disease: Code(s): J44.9 - Chronic obstructive pulmonary disease, unspecified Status: Acute Assessment and Plan: * Albuterol 2-4 puff QID PRN. Subjective Date/time seen: 03/20/24 10:45 Interval history: Patient is sitting up in bed. Patient denies chest pain, palpitations, headache, dizziness, nausea, or vomiting. Patient asking about having urine catheter changed out, patient had an appointment with urology on Wednesday but will not be able to make his appointment. Review of Systems Review of Systems: All systems reviewed & are unremarkable except as noted in HPI and below Exam Const: General: comfortable and no acute distress Eyes: Sclera: sclerae normal Resp: Effort & Inspection: normal respiratory effort Auscultation: diminished lung sounds Cardio: Rhythm: regular rhythm (afib 82) GI: GI Palp: Yes Soft to palpation Auscultation: normal bowel sounds Urinary Catheter: Urinary Catheter: patent and draining Extrem: General: pedal edema on the right 1+ and on the left 2+ Psych: Mental Status: mental status grossly normal Affect: normal affect Objective Data Vital Signs Vital Signs: Vital Signs - 24 hr 03/19/24 12:00 03/19/24 12:00 03/19/24 16:00 Temperature 98.4 F Pulse Rate 72 66 83 Respiratory Rate 14 Blood Pressure 103/62 Pulse Oximetry 99 Oxygen Delivery Oxygen Flow Rate Fraction of Inspired Oxygen 03/19/24 16:00 03/19/24 20:00 03/19/24 20:00 Temperature 97.9 F Pulse Rate 83 83 74 Respiratory Rate 20 20 Blood Pressure 106/72 Pulse Oximetry 97 97 Oxygen Delivery Nasal Cannula Oxygen Flow Rate 1 Fraction of Inspired Oxygen 24 03/19/24 20:00 03/20/24 00:00 03/20/24 00:00 Temperature 98.0 F 97.9 F Pulse Rate 78 57 L 75 Respiratory Rate 18 16 Blood Pressure 103/69 104/65 Pulse Oximetry 96 98 Oxygen Delivery Oxygen Flow Rate Fraction of Inspired Oxygen 03/20/24 04:00 03/20/24 04:00 03/20/24 08:00 Temperature 97.6 F 97.2 F L Pulse Rate 66 89 82 Respiratory Rate 16 16 Blood Pressure 101/61 114/65 Pulse Oximetry 97 99 Oxygen Delivery Oxygen Flow Rate Fraction of Inspired Oxygen 03/20/24 09:57 Temperature Pulse Rate 82 Respiratory Rate Blood Pressure Pulse Oximetry Oxygen Delivery Oxygen Flow Rate Fraction of Inspired Oxygen Intake/Output Intake/Output: Intake & Output 03/17/24 03/18/24 03/19/24 03/20/24 23:59 23:59 23:59 23:59 Intake Total 109 779 6819 200 Output Total 1200 7200 2650 350 [facility] -[phone] -1310 -150 Meds/Results Medications: Active Medications Generic Name Dose Route Start Last Admin Trade Name Freq PRN Reason Stop Dose Admin Acetaminophen 650 mg 03/17/24 23:57 Acetaminophen 325 Mg Tablet PO Q6H PRN Mild Pain (1-3) or Fever Albuterol 2 - 4 puff 03/18/24 08:26 Albuterol Sulfate (*Sp) Aerosol 1 Puff INHALATION QID PRN shortness of breath or wheezing Apixaban 5 mg 03/18/24 09:00 03/20/24 09:57 Apixaban 5 Mg Tablet PO 5 mg Q12HR MK Administration Atenolol 50 mg 03/18/24 09:00 03/20/24 09:57 Atenolol 50 Mg Tablet PO 50 mg DAILY MK Administration Cyanocobalamin 500 mcg 03/20/24 09:00 Cyanocobalamin 500 Mcg Tablet PO [id number] MK Dextrose 12.5 gm 03/18/24 21:40 Dextrose 50% 25 Gm/50 Ml Syringe IV PUSH PRN PRN Hypoglycemia Protocol Diltiazem HCl 60 mg 03/18/24 08:30 03/20/24 05:19 Diltiazem Hcl 60 Mg Tablet PO 60 mg Q8HR MK Administration Furosemide 40 mg 03/18/24 09:00 03/20/24 09:56 Furosemide Inj 40 Mg/4 Ml Vial IV PUSH 40 mg BID MK Administration Glucagon 1 mg 03/18/24 21:40 Glucagon For Inj 1 Mg Vial IM PRN PRN Hypoglycemia Protocol Glucose 15 gm 03/18/24 21:40 Glucose Oral Gel 15 Gm Of Glucse In 37.5 Gm Tube PO PRN PRN Hypoglycemia Protocol Dextrose 1,000 mls @ 100 mls/hr 03/18/24 21:40 Dextrose 5% 1,000 Ml IVPB PRN PRN Hypoglycemia Protocol Insulin Aspart 2 - 5 units 03/19/24 08:00 03/20/24 09:48 Insulin Aspart (*Bkc) 100 Units/Ml SUB-Q Not Given TIDWM MK Protocol Insulin Aspart 1 - 2 units 03/19/24 21:00 03/19/24 21:10 Insulin Aspart (*Bkc) 100 Units/Ml SUB-Q Not Given HS MK Protocol Pantoprazole Sodium 40 mg 03/18/24 09:00 03/20/24 09:57 Pantoprazole 40 Mg Tablet PO 04/17/24 08:59 40 mg DAILY MK Administration Perflutren Lipid Microsphere 0 ml 03/17/24 18:21 Perflutren Lipid Microspheres 1.5 Ml Vial Diluted To 10 Ml Total Volume IV PUSH 03/20/24 18:23 ONCE PRN adequate visualization Protocol Perflutren Lipid Microsphere 0 ml 03/17/24 23:57 Perflutren Lipid Microspheres 1.5 Ml Vial Diluted To 10 Ml Total Volume IV PUSH 03/20/24 23:57 ONCE PRN adequate visualization Protocol Simvastatin 20 mg 03/18/24 09:00 03/20/24 09:57 Simvastatin 20 Mg Tablet PO 20 mg DAILY MK Administration Tamsulosin HCl 0.4 mg 03/18/24 09:00 03/20/24 09:50 Tamsulosin Hcl 0.4 Mg Capsule PO 0.4 mg DAILY MK Administration Temazepam 15 mg 03/18/24 08:31 03/19/24 23:08 Temazepam (*Crx) 15 Mg Capsule PO 15 mg QHS PRN Administration sleep Vitamin D 2,000 units 03/18/24 09:00 03/20/24 09:57 Cholecalciferol 1,000 Units Tablet PO 2,000 units DAILY MK Administration Radiology Results: ITS Impressions Chest X-Ray 03/17/24 13:01 Impression: Small right pleural effusion. Probable bibasilar pulmonary edema/atelectasis versus pneumonia. Chest CTA 03/17/24 16:16 IMPRESSION: 1. No central pulmonary embolism in the main and lobar pulmonary arteries and of the arteries in the bilateral upper lobes. Assessment of the segmental and subsegmental pulmonary arteries in the lower lungs is essentially nondiagnostic due to prominent respiratory motion. 2. Moderate-sized posterior layering right pleural effusion. 3. Mild emphysema. 4. Patchy airspace opacities in the posterior right upper lobe and in the left lower lobe which could represent atelectasis or pneumonia. 5. Cardiomegaly with right heart predominance and with reflux of contrast into the inferior vena cava consistent with tricuspid regurgitation. Venous Doppler Study 03/18/24 20:19 IMPRESSION: Negative bilateral lower extremity venous US. No deep vein thrombosis. Labs Labs: Laboratory Results - last 24 hr 03/19/24 03/19/24 03/19/24 12:52 17:03 20:51 WBC RBC Hgb Hct MCV MCH MCHC RDW Plt Count MPV Immature Gran % (Auto) Neut % (Auto) Lymph % (Auto) [place] % (Auto) Eos % (Auto) Baso % (Auto) Lymph # (Auto) [place] # (Auto) Eos # (Auto) Baso # (Auto) Abs Immat Gran (auto) Absolute Neuts (auto) Absolute Nucleated RBC Nucleated RBC % % Immature Plt Fraction Sodium Potassium Chloride Carbon Dioxide Anion Gap BUN Creatinine Estim Creat Clear Calc Estimated GFR Glucose POC Capillary Glucose 155 H 129 H 170 H Calcium Magnesium Total Bilirubin AST ALT Alkaline Phosphatase Total Protein Albumin 03/20/24 03/20/24 04:45 08:11 WBC 4.0 L RBC 3.93 L Hgb 10.8 L Hct 33.6 L MCV 85.5 MCH 27.5 MCHC 32.1 RDW 19.1 H Plt Count 116 L MPV 9.9 Immature Gran % (Auto) 0.2 Neut % (Auto) 63.2 Lymph % (Auto) 23.8 [place] % (Auto) 11.9 H Eos % (Auto) 0.7 Baso % (Auto) 0.2 Lymph # (Auto) 0.96 [place] # (Auto) 0.5 Eos # (Auto) 0.0 Baso # (Auto) 0.0 Abs Immat Gran (auto) 0.01 Absolute Neuts (auto) 2.6 Absolute Nucleated RBC 0.000 Nucleated RBC % 0.0 % Immature Plt Fraction 3.6 Sodium 128 L Potassium 4.4 Chloride 90 L Carbon Dioxide > 40 H Anion Gap BUN 16 Creatinine 0.70 Estim Creat Clear Calc 71 Estimated GFR > 60 Glucose 79 POC Capillary Glucose 136 H Calcium 7.8 L Magnesium 1.7 Total Bilirubin 1.0 AST 31 ALT 16 Alkaline Phosphatase 71 Total Protein 6.0 L Albumin 2.9 L Quality VTE Prophylaxis VTE prophylaxis: pharmacologic ordered (on apixaban)
[2024-03-20 12:00] LABS: Glucose Point of Care 203 mg/dl (65-105)
[2024-03-20] MEDS: INSULIN ASPART (*BKC) 100 UNITS/ML SUB-Q (12:04)
[2024-03-20] MEDS: CYANOCOBALAMIN 500 MCG TABLET PO (12:06)
[2024-03-20 17:06] LABS: Glucose Point of Care 126 mg/dl (65-105)
[2024-03-20 20:10] LABS: Glucose Point of Care 161 mg/dl (65-105)
[2024-03-20] MEDS: TEMAZEPAM (*CRX) 15 MG CAPSULE PO (23:03)
[2024-03-21] VITALS (7 sets, daily range): BP systolic 107–116; BP diastolic 62–72; PULSE 59–81; RESP 16–18; TEMP 36.3–36.7; O2SAT 96–98
[2024-03-21] MEDS: dilTIAZem HCL 60 MG TABLET PO ×3 (06:04→21:39)
[2024-03-21 06:25] LABS: Basophils Percent Auto 0.5 % (0.2-1.2); Eosinophils Percent Auto 0.5 % (0-4.4); Hematocrit 33.4 % (42.0-52.0); Hemoglobin 10.6 g/dL (14.0-18.0); Immature Granulocyte Absolute 0.01 K/mm3 (0.00-0.031); Immature Granulocyte Percent A 0.3 % (0-0.5); Immature Platelet Fraction Pct 4.1 % (0.9-11.2); Lymphocytes Absolute Auto 0.79 K/mm3 (0.9-3.2); Lymphocytes Percent Auto 20.8 % (18.3-44.2); Mean Corpuscular HGB Conc 31.7 g/dl (32-36); Mean Corpuscular Hemoglobin 26.6 pg (26-34); Mean Corpuscular Volume 83.7 fl (80-100); Monocytes Absolute Auto 0.4 K/mm3 (0.1-0.6); Monocytes Percent Auto 10.6 % (2.6-8.5); Neutrophils Absolute Auto 2.6 K/mm3 (1.3-6.7); Neutrophils Percent Auto 67.3 % (45.5-73.1); Platelet Count Result 117 k/mm3 (150-375); Red Blood Count 3.99 M/mm3 (4.6-6.20); Red Cell Distribution Width 18.8 % (11.5-14.5); White Blood Count 3.8 K/mm3 (4.5-10.0)
[2024-03-21 06:38] LABS: Alanine Aminotransferase 16 U/L (6-50); Albumin Level 2.9 g/dL (3.5-5.1); Alkaline Phosphatase 75 U/L (38-126); Aspartate Amino Transferase 28 U/L (17-59); Blood Urea Nitrogen 15 mg/dL (9-20); Calcium 7.4 mg/dL (8.4-10.2); Chloride 87 mmol/L (98-107); Estimated CRCL calculation 82 ml/min; Estimated Glomerular Filt Rate > 60; Glucose 84 mg/dL (65-110); Magnesium 1.5 mg/dL (1.6-2.3); Potassium 3.7 mmol/L (3.4-5.0); Sodium 127 mmol/L (137-145)
[2024-03-21 08:20] LABS: Glucose Point of Care 101 mg/dl (65-105)
[2024-03-21] MEDS: SIMVASTATIN 20 MG TABLET PO (08:30)
[2024-03-21] MEDS: atenoloL 50 MG TABLET PO (08:30)
[2024-03-21] MEDS: CHOLECALCIFEROL 1,000 UNITS TABLET 2000 UNITS PO (08:30)
[2024-03-21] MEDS: APIXABAN 5 MG TABLET PO ×2 (08:30→21:39)
[2024-03-21] MEDS: PANTOPRAZOLE 40 MG TABLET PO (08:31)
[2024-03-21] MEDS: FUROSEMIDE INJ 40 MG/4 ML VIAL IV PUSH (08:31)
[2024-03-21] MEDS: TAMSULOSIN HCL 0.4 MG CAPSULE PO (08:31)
[2024-03-21] MEDS: MAGNESIUM SULFATE 3GM/D5W100ML 3 GM/100 ML BAG IVPB (08:31)
[2024-03-21] MEDS: POTASSIUM CHLORIDE 20 MEQ ER TABLET 40 MEQ PO (08:31)
[2024-03-21 09:14] LABS: Anion Gap 4 mmol/L (4-12); Carbon Dioxide 36 mmol/L (22-30)
--- NOTE | 2024-03-21 11:27 | P.CONCA_ITS ---
Assessment and Plan Assessment and plan (1) Chronic obstructive pulmonary disease: Code(s): J44.9 - Chronic obstructive pulmonary disease, unspecified Status: Acute Assessment and Plan: It appears that the increased shortness of breath on exertion with more related to CHF which most likely was right-sided. I do not think that the COPD exacerbation was the main reason he came in (2) Chronic atrial fibrillation: Code(s): I48.20 - Chronic atrial fibrillation, unspecified Status: Acute Assessment and Plan: He has had chronic AFib for many years prior would continue anticoagulation and rate control. (3) Type 2 diabetes mellitus: Code(s): E11.9 - Type 2 diabetes mellitus without complications Status: Acute Assessment and Plan: With the hospitalist (4) Tricuspid regurgitation: Qualifiers: Cardiac valve disease etiology: etiology unspecified Qualified Code(s): I07.1 - Rheumatic tricuspid insufficiency Code(s): I07.1 - Rheumatic tricuspid insufficiency Status: Acute Assessment and Plan: I do not think this is rheumatic TR. It seems more likely to be secondary to the atrial fibrillation and/or pulmonary hypertension. The question is whether the TR is the main driving factor behind his symptoms but obviously this is also related to the recent hospitalization for pneumonia from COVID 19. I think we can switch the Lasix to 40 p.o. b.i.d. (5) CHF exacerbation: Qualifiers: Heart failure type: unspecified Qualified Code(s): I50.9 - Heart failure, unspecified Code(s): I50.9 - Heart failure, unspecified Status: Acute Assessment and Plan: As above History of Present Illness History of Present Illness Consult date/time: 03/21/24 11:27 Reason For Visit: CHF Exacerbation/Hypomagnesemia Narrative: A 78-year-old male who presented with increasing shortness of breath on exertion and weight gain. This was following an admission for pneumonia and COVID-19 recently and he was still trying to recover from the 1st hospitalization. He had no dyspnea at rest but did note that he had put on about 8 lb. He was on Lasix 20 mg and was drinking a little more than he usually did. He denies palpitation PND or chest pain or chest pressure Review of Systems 2 Review of Systems: Review of systems is negative other than HPI [facility] Past Medical History Medical History (Updated 03/17/24 @ 23:52 by Asha Juarez PA-C) Chronic obstructive pulmonary disease Chronic obstructive pulmonary disease Type 2 diabetes mellitus Abdominal aortic aneurysm Status post repair Hypertension Tricuspid regurgitation Moderate noted on echocardiogram March 2023 Pulmonary hypertension Mild on echo March 2023 Diastolic dysfunction Echocardiogram March 2023: EF 60 65%, mild concentric increased left ventricular wall thickness, abnormal diastolic function, E/E 10 is mildly elevated, severe left atrial enlargement, moderate mitral valve regurgitation, moderate tricuspid valve regurgitation, mild pulmonary hypertension Chronic anticoagulation Insomnia Adrenal insufficiency Gross hematuria Atherosclerotic heart disease of [place] coronary artery with angina pectoris B12 deficiency Chronic atrial fibrillation Enlarged prostate without lower urinary tract symptoms (luts) Gastro-esophageal reflux disease without esophagitis Lung nodule Mixed hyperlipidemia Non-rheumatic mitral regurgitation Moderate noted on echo March 2023 Overweight (04/22/15) Tobacco abuse Vitamin D deficiency Adenomatous colon polyp Aortic root aneurysm Surgical History Surgical History (Updated 03/17/24 @ 23:48 by Asha Juarez PA-C) History of coronary artery stent placement History of transurethral resection of prostate History of endovascular stent graft for abdominal aortic aneurysm History of cardiac cath Family History Family History Father Acute myocardial infarction Social History Social History (Updated 03/17/24 @ 23:49 by Asha Juarez PA-C) Social History: Surrogate medical decision maker: Dory Echeverria, spouse. Code status: Full code. Smoking packs per day: 1 Smoking cigarettes per day: 20.0 Years smoked: 50 Smoking pack-years: 50.00 Smoking status: Former smoker Tobacco type: cigars Second hand tobacco smoke exposure: Yes Additional smoking assessment comments: quit in 2019 Alcohol intake: never Substance use: never Substance use type: does not use Do You Feel Safe in your Home?: Yes Lack of Transportation: No Lack of Food: Never True Current Housing: I Have Housing Concerned About Future Housing: No Difficulty Paying Gas/Electric Bills: No Difficulty Paying for Meds: No Currently Unemployed: No Education: High School Diploma/GED Difficulty w/ Childcare or Family Care: No Living arrangements: with family Additional living arrangements comments: Lives with spouse in [facility] [place]. They have 3 children. Occupation/Education: retired Additional occupation/education comments: Retired from [employer]. Spiritual care concerns: No Meds Home Medications and Allergies Home Medications ?Medication ?Instructions ?Recorded ?Confirmed ?Type cholecalciferol (vitamin D3) 50 2,000 unit PO DAILY 01/22/20 03/17/24 History mcg (2,000 unit) capsule mecobalamin (vitamin B12) 500 mcg 500 mcg PO .MWF 06/01/23 03/17/24 History chewable tablet metformin 500 mg tablet 500 mg PO BID #180 tabs 07/14/23 03/17/24 Rx albuterol sulfate 90 mcg/actuation 2 - 4 puff inhalation QID PRN 11/17/23 03/17/24 Rx aerosol inhaler shortness of breath or wheezing #8.5 grams temazepam 15 mg capsule 15 mg PO QHS PRN sleep #30 caps 02/09/24 03/17/24 Rx apixaban 5 mg tablet (Eliquis) 5 mg PO BID 02/17/24 03/17/24 History atenolol 50 mg tablet 50 mg PO DAILY 02/17/24 03/17/24 History simvastatin 20 mg tablet 20 mg PO DAILY 02/17/24 03/17/24 History tamsulosin 0.4 mg capsule 0.4 mg PO DAILY 02/17/24 03/17/24 History furosemide 20 mg tablet 20 mg PO DAILY #60 tabs 02/23/24 03/17/24 Rx omeprazole magnesium 20 mg 20 mg PO DAILY #30 tabs 02/23/24 03/17/24 Rx tablet,delayed release (Prilosec OTC) oxygen 2 l inhalation DAILY 03/01/24 03/17/24 History diltiazem HCl 60 mg tablet 60 mg PO Q8H 03/17/24 03/17/24 History Allergies Allergy/AdvReac Type Severity Reaction Status Date / Time lisinopril AdvReac Severe tongue and Verified 03/01/24 11:48 lip swelling ibuprofen AdvReac Unknown Gastrointestinal Verified 03/01/24 11:48 Upset Vital Signs Vital Signs - 24 hr 03/20/24 12:00 03/20/24 14:34 03/20/24 16:00 Temperature 36.2 C L Pulse Rate 70 60 63 Respiratory Rate 12 Blood Pressure 92/57 L Pulse Oximetry 99 Oxygen Delivery Oxygen Flow Rate Fraction of Inspired Oxygen 03/20/24 20:00 03/20/24 20:00 03/20/24 20:00 Temperature 36.6 C Pulse Rate 84 84 74 Respiratory Rate 16 16 Blood Pressure 118/65 Pulse Oximetry 98 98 Oxygen Delivery Nasal Cannula Oxygen Flow Rate 1 Fraction of Inspired Oxygen 24 03/21/24 00:00 03/21/24 00:00 03/21/24 04:00 Temperature 36.7 C Pulse Rate 75 70 74 Respiratory Rate 18 Blood Pressure 107/67 Pulse Oximetry 98 Oxygen Delivery Oxygen Flow Rate Fraction of Inspired Oxygen 03/21/24 04:00 03/21/24 08:00 03/21/24 08:00 Temperature 36.6 C 36.6 C Pulse Rate 81 76 74 Respiratory Rate 18 18 Blood Pressure 113/62 110/64 Pulse Oximetry 97 96 Oxygen Delivery Oxygen Flow Rate Fraction of Inspired Oxygen 03/21/24 08:30 03/21/24 08:30 Temperature Pulse Rate 76 Respiratory Rate Blood Pressure Pulse Oximetry 96 Oxygen Delivery Nasal Cannula Oxygen Flow Rate 1 Fraction of Inspired Oxygen Exam 2 Narrative: Appears to be in no acute distress HENMT: Other: HEENT: Normocephalic atraumatic no pallor no icterus Neck: Other: Increase in jugular venous pressure Chest: Other: Coarse breath sounds bilaterally Resp: Other: S1-S2 irregular GI: Other: Soft nontender abdomen Neuro: Other: No focal deficit Extrem: Other: This time there does not appear to be any evidence of edema Results Labs and Meds 03/21/24 05:36 03/21/24 05:36 Lab results: Cardiac Enzymes 03/21/24 Range/Units 05:36 AST 28 (17-59) U/L CBC 03/21/24 Range/Units 05:36 WBC 3.8 L (4.5-10.0) K/mm3 RBC 3.99 L (4.6-6.20) M/mm3 Hgb 10.6 L (14.0-18.0) g/dL Hct 33.4 L (42.0-52.0) % Plt Count 117 L (150-375) k/mm3 Lymph # (Auto) 0.79 L (0.9-3.2) K/mm3 Thomas # (Auto) 0.4 (0.1-0.6) K/mm3 Eos # (Auto) 0.0 (0-0.3) K/mm3 Baso # (Auto) 0.0 (0.0-0.1) K/mm3 Comprehensive Metabolic Panel 03/21/24 Range/Units 05:36 Sodium 127 L (137-145) mmol/L Potassium 3.7 (3.4-5.0) mmol/L Chloride 87 L (98-107) mmol/L Carbon Dioxide 36 H (22-30) mmol/L BUN 15 (9-20) mg/dL Creatinine 0.60 L (0.7-1.3) mg/dL Glucose 84 (65-110) mg/dL Calcium 7.4 L (8.4-10.2) mg/dL AST 28 (17-59) U/L ALT 16 (6-50) U/L Alkaline Phosphatase 75 (38-126) U/L Total Protein 6.0 L (6.3-8.2) g/dL Albumin 2.9 L (3.5-5.1) g/dL Intake and Output 03/20/24 03/21/24 03/21/24 23:59 07:59 15:59 Intake Total 1590 100 240 Output Total 1450 400 Balance 140 -300 240 Intake: Oral 1590 100 240 Output: Catheter Urine 1450 400 Urethral Catheter 1450 400 Other: Number of Bowel Movements Today 1 Patient Weight 03/21/24 23:59 Weight 81.7 kg Imaging and Cardiology Echo: report reviewed (Appears to have normal LV function with some degree of diastolic dysfunction but main issue is severe TR with severe pulmonary hypertension which is new as previously his pulmonary hypertension was mild) EKG Interpretation EKG shows: atrial fibrillation (AFib with controlled ventricular response abnormal ST T wave changes) Quality Total time taken was 45 minutes
--- NOTE | 2024-03-21 11:58 | P.PNIM_ITS ---
Progress Note: A&P Assessment and Plan (1) CHF exacerbation: Qualifiers: Heart failure type: unspecified Qualified Code(s): I50.9 - Heart failure, unspecified Code(s): I50.9 - Heart failure, unspecified Status: Acute Assessment and Plan: * Lasix 40 mg ivp BID switched to Lasix 40 mg PO BID by cardiology. * Edema to LE's. * Potassium 3.7. Patient given Potassium Chloride 40 meq PO x 1. * Monitor labs. * Echocardiogram showed: Summary 1. Complete two-dimensional, color flow and Doppler transthoracic echocardiogram is performed. 2. Normal LV size and concentric LVH preserved LV fxn. 3. Enlarged RV mild hypokinesis. 4. Severe TR with severe PHTN.- Consult Cardiology. 5. Biatrial dilatation. 6. Moderate MR. Left Ventricle Left ventricular chamber dimension is normal. Left ventricular systolic function is normal, estimated at 60-65%. There is mildly increased left ventricular wall thickness. * Venous doppler- negative. (2) Hyponatremia: Code(s): E87.1 - Hypo-osmolality and hyponatremia Status: Acute Assessment and Plan: * Sodium 127 * Monitor labs. (3) Hypomagnesemia: Code(s): E83.42 - Hypomagnesemia Status: Acute Assessment and Plan: * Magnesium 1.5 * Magnesium Sulfate 3 gram IVPB x1 given. * Monitor labs. (4) Chronic anemia: Code(s): D64.9 - Anemia, unspecified Status: Acute Assessment and Plan: * H&H 10.6/33.4. * monitor labs. (5) Thrombocytopenia: Code(s): D69.6 - Thrombocytopenia, unspecified Status: Acute Assessment and Plan: * Platelets 117. * Monitor labs. (6) Hypertension: Code(s): I10 - Essential (primary) hypertension Status: Acute Assessment and Plan: * Current blood pressure is 110/64. * Continue Atenolol 50 mg PO daily. (7) Chronic atrial fibrillation: Code(s): I48.20 - Chronic atrial fibrillation, unspecified Status: Acute Assessment and Plan: * continue Apixaban 5 mg PO q 12 and diltiazem 60 mg PO q 8. (8) Type 2 diabetes mellitus: Code(s): E11.9 - Type 2 diabetes mellitus without complications Status: Acute Assessment and Plan: * Hold metformin as he received IV contrast. * Sliding scale insulin, Accu-Cheks, and hypoglycemic protocol. (9) Chronic obstructive pulmonary disease: Code(s): J44.9 - Chronic obstructive pulmonary disease, unspecified Status: Acute Assessment and Plan: * Albuterol 2-4 puff QID PRN. Subjective Date/time seen: 03/21/24 11:58 Interval history: Patient sitting up in chair. Patient denies chest pain, palpitations, headache, dizziness, nausea, or vomiting. Review of Systems Review of Systems: All systems reviewed & are unremarkable except as noted in HPI and below Exam Const: General: comfortable and no acute distress Resp: Other: coarse and slightly diminished Cardio: Rhythm: abnormal rhythm (Afib 69) irregularly irregular GI: GI Palp: Yes Soft to palpation Auscultation: normal bowel sounds Neuro: Speech: normal speech Extrem: General: pedal edema bilaterally 1+ Psych: Mental Status: mental status grossly normal Affect: normal affect Objective Data Vital Signs Vital Signs: Vital Signs - 24 hr 03/20/24 12:00 03/20/24 14:34 03/20/24 16:00 Temperature 97.1 F L Pulse Rate 70 60 63 Respiratory Rate 12 Blood Pressure 92/57 L Pulse Oximetry 99 Oxygen Delivery Oxygen Flow Rate Fraction of Inspired Oxygen 03/20/24 20:00 03/20/24 20:00 03/20/24 20:00 Temperature 97.8 F Pulse Rate 84 84 74 Respiratory Rate 16 16 Blood Pressure 118/65 Pulse Oximetry 98 98 Oxygen Delivery Nasal Cannula Oxygen Flow Rate 1 Fraction of Inspired Oxygen 24 03/21/24 00:00 03/21/24 00:00 03/21/24 04:00 Temperature 98.0 F Pulse Rate 75 70 74 Respiratory Rate 18 Blood Pressure 107/67 Pulse Oximetry 98 Oxygen Delivery Oxygen Flow Rate Fraction of Inspired Oxygen 03/21/24 04:00 03/21/24 08:00 03/21/24 08:00 Temperature 97.9 F 97.8 F Pulse Rate 81 76 74 Respiratory Rate 18 18 Blood Pressure 113/62 110/64 Pulse Oximetry 97 96 Oxygen Delivery Oxygen Flow Rate Fraction of Inspired Oxygen 03/21/24 08:30 03/21/24 08:30 Temperature Pulse Rate 76 Respiratory Rate Blood Pressure Pulse Oximetry 96 Oxygen Delivery Nasal Cannula Oxygen Flow Rate 1 Fraction of Inspired Oxygen Intake/Output Intake/Output: Intake & Output 03/18/24 03/19/24 03/20/24 03/21/24 23:59 23:59 23:59 23:59 Intake Total 720 1340 2270 340 Output Total 7200 2650 1800 400 Balance -9280 -1310 470 -60 Meds/Results Medications: Active Medications Generic Name Dose Route Start Last Admin Trade Name Freq PRN Reason Stop Dose Admin Acetaminophen 650 mg 03/17/24 23:57 Acetaminophen 325 Mg Tablet PO Q6H PRN Mild Pain (1-3) or Fever Albuterol 2 - 4 puff 03/18/24 08:26 Albuterol Sulfate (*Sp) Aerosol 1 Puff INHALATION QID PRN shortness of breath or wheezing Apixaban 5 mg 03/18/24 09:00 03/21/24 08:30 Apixaban 5 Mg Tablet PO 5 mg Q12HR MK Administration Atenolol 50 mg 03/18/24 09:00 03/21/24 08:30 Atenolol 50 Mg Tablet PO 50 mg DAILY MK Administration Cyanocobalamin 500 mcg 03/20/24 09:00 03/20/24 12:06 Cyanocobalamin 500 Mcg Tablet PO 500 mcg MoWeFr@0900 MK Administration Dextrose 12.5 gm 03/18/24 21:40 Dextrose 50% 25 Gm/50 Ml Syringe IV PUSH PRN PRN Hypoglycemia Protocol Diltiazem HCl 60 mg 03/18/24 08:30 03/21/24 06:04 Diltiazem Hcl 60 Mg Tablet PO 60 mg Q8HR MK Administration Furosemide 40 mg 03/21/24 17:00 Furosemide 40 Mg Tablet PO BID MK Glucagon 1 mg 03/18/24 21:40 Glucagon For Inj 1 Mg Vial IM PRN PRN Hypoglycemia Protocol Glucose 15 gm 03/18/24 21:40 Glucose Oral Gel 15 Gm Of Glucse In 37.5 Gm Tube PO PRN PRN Hypoglycemia Protocol Dextrose 1,000 mls @ 100 mls/hr 03/18/24 21:40 Dextrose 5% 1,000 Ml IVPB PRN PRN Hypoglycemia Protocol Insulin Aspart 2 - 5 units 03/19/24 08:00 03/21/24 08:31 Insulin Aspart (*Bkc) 100 Units/Ml SUB-Q Not Given TIDWM MK Protocol Insulin Aspart 1 - 2 units 03/19/24 21:00 03/20/24 22:00 Insulin Aspart (*Bkc) 100 Units/Ml SUB-Q Not Given HS MK Protocol Pantoprazole Sodium 40 mg 03/18/24 09:00 03/21/24 08:31 Pantoprazole 40 Mg Tablet PO 04/17/24 08:59 40 mg DAILY MK Administration Simvastatin 20 mg 03/18/24 09:00 03/21/24 08:30 Simvastatin 20 Mg Tablet PO 20 mg DAILY MK Administration Tamsulosin HCl 0.4 mg 03/18/24 09:00 03/21/24 08:31 Tamsulosin Hcl 0.4 Mg Capsule PO 0.4 mg DAILY MK Administration Temazepam 15 mg 03/18/24 08:31 03/20/24 23:03 Temazepam (*Crx) 15 Mg Capsule PO 15 mg QHS PRN Administration sleep Vitamin D 2,000 units 03/18/24 09:00 03/21/24 08:30 Cholecalciferol 1,000 Units Tablet PO 2,000 units DAILY MK Administration Radiology Results: ITS Impressions Chest X-Ray 03/17/24 13:01 Impression: Small right pleural effusion. Probable bibasilar pulmonary edema/atelectasis versus pneumonia. Chest CTA 03/17/24 16:16 IMPRESSION: 1. No central pulmonary embolism in the main and lobar pulmonary arteries and of the arteries in the bilateral upper lobes. Assessment of the segmental and subsegmental pulmonary arteries in the lower lungs is essentially nondiagnostic due to prominent respiratory motion. 2. Moderate-sized posterior layering right pleural effusion. 3. Mild emphysema. 4. Patchy airspace opacities in the posterior right upper lobe and in the left lower lobe which could represent atelectasis or pneumonia. 5. Cardiomegaly with right heart predominance and with reflux of contrast into the inferior vena cava consistent with tricuspid regurgitation. Venous Doppler Study 03/18/24 20:19 IMPRESSION: Negative bilateral lower extremity venous US. No deep vein thrombosis. Labs Labs: Laboratory Results - last 24 hr 03/20/24 03/20/24 03/20/24 11:43 16:58 19:28 WBC RBC Hgb Hct MCV MCH MCHC RDW Plt Count MPV Immature Gran % (Auto) Neut % (Auto) Lymph % (Auto) [place] % (Auto) Eos % (Auto) Baso % (Auto) Lymph # (Auto) [place] # (Auto) Eos # (Auto) Baso # (Auto) Abs Immat Gran (auto) Absolute Neuts (auto) Absolute Nucleated RBC Nucleated RBC % % Immature Plt Fraction Sodium Potassium Chloride Carbon Dioxide Anion Gap BUN Creatinine Estim Creat Clear Calc Estimated GFR Glucose POC Capillary Glucose 203 H 126 H 161 H Calcium Magnesium Total Bilirubin AST ALT Alkaline Phosphatase Total Protein Albumin 03/21/24 03/21/24 05:36 08:04 WBC 3.8 L RBC 3.99 L Hgb 10.6 L Hct 33.4 L MCV 83.7 MCH 26.6 MCHC 31.7 L RDW 18.8 H Plt Count 117 L MPV 10.0 Immature Gran % (Auto) 0.3 Neut % (Auto) 67.3 Lymph % (Auto) 20.8 [place] % (Auto) 10.6 H Eos % (Auto) 0.5 Baso % (Auto) 0.5 Lymph # (Auto) 0.79 L [place] # (Auto) 0.4 Eos # (Auto) 0.0 Baso # (Auto) 0.0 Abs Immat Gran (auto) 0.01 Absolute Neuts (auto) 2.6 Absolute Nucleated RBC 0.000 Nucleated RBC % 0.0 % Immature Plt Fraction 4.1 Sodium 127 L Potassium 3.7 Chloride 87 L Carbon Dioxide 36 H Anion Gap 4 BUN 15 Creatinine 0.60 L Estim Creat Clear Calc 82 Estimated GFR > 60 Glucose 84 POC Capillary Glucose 101 Calcium 7.4 L Magnesium 1.5 L Total Bilirubin 1.0 AST 28 ALT 16 Alkaline Phosphatase 75 Total Protein 6.0 L Albumin 2.9 L Quality VTE Prophylaxis VTE prophylaxis: pharmacologic ordered (on apixaban)
[2024-03-21 13:11] LABS: Glucose Point of Care 260 mg/dl (65-105)
[2024-03-21] MEDS: INSULIN ASPART (*BKC) 100 UNITS/ML SUB-Q (13:23)
[2024-03-21] MEDS: FUROSEMIDE 40 MG TABLET PO (17:30)
[2024-03-21 17:34] LABS: Glucose Point of Care 101 mg/dl (65-105)
[2024-03-21 21:35] LABS: Glucose Point of Care 111 mg/dl (65-105)
[2024-03-21] MEDS: TEMAZEPAM (*CRX) 15 MG CAPSULE PO (22:57)
[2024-03-22] VITALS: BP 99/63; PULSE 60; PULSE 77; RESP 16; TEMP 36.6; O2SAT 94
[2024-03-22 04:00] VITALS: BP 113/76; PULSE 75; PULSE 84; RESP 20; TEMP 36.6; O2SAT 96
[2024-03-22 06:00] LABS: Basophils Percent Auto 0.9 % (0.2-1.2); Eosinophils Percent Auto 0.2 % (0-4.4); Hemoglobin 10.6 g/dL (14.0-18.0); Immature Granulocyte Absolute 0.01 K/mm3 (0.00-0.031); Immature Granulocyte Percent A 0.2 % (0-0.5); Immature Platelet Fraction Pct 4.7 % (0.9-11.2); Lymphocytes Absolute Auto 0.88 K/mm3 (0.9-3.2); Mean Corpuscular HGB Conc 31.2 g/dl (32-36); Mean Corpuscular Hemoglobin 26.2 pg (26-34); Mean Corpuscular Volume 84.2 fl (80-100); Monocytes Absolute Auto 0.5 K/mm3 (0.1-0.6); Monocytes Percent Auto 11.2 % (2.6-8.5); Neutrophils Absolute Auto 3.2 K/mm3 (1.3-6.7); Neutrophils Percent Auto 68.5 % (45.5-73.1); Platelet Count Result 130 k/mm3 (150-375); Red Blood Count 4.04 M/mm3 (4.6-6.20); Red Cell Distribution Width 18.6 % (11.5-14.5); White Blood Count 4.6 K/mm3 (4.5-10.0)
[2024-03-22] MEDS: dilTIAZem HCL 60 MG TABLET PO (06:10)
[2024-03-22 06:34] LABS: Alanine Aminotransferase 16 U/L (6-50); Alkaline Phosphatase 76 U/L (38-126); Anion Gap 1 mmol/L (4-12); Aspartate Amino Transferase 28 U/L (17-59); Bilirubin,Total 1.1 mg/dL (0.2-1.3); Blood Urea Nitrogen 15 mg/dL (9-20); Calcium 7.4 mg/dL (8.4-10.2); Carbon Dioxide 38 mmol/L (22-30); Chloride 87 mmol/L (98-107); Estimated CRCL calculation 85 ml/min; Estimated Glomerular Filt Rate > 60; Glucose 89 mg/dL (65-110); Magnesium 1.9 mg/dL (1.6-2.3); Potassium 3.7 mmol/L (3.4-5.0); Sodium 126 mmol/L (137-145)
[2024-03-22 07:55] LABS: Glucose Point of Care 90 mg/dl (65-105)
[2024-03-22 08:00] VITALS: PULSE 75
[2024-03-22 08:18] VITALS: PULSE 79
[2024-03-22] MEDS: CYANOCOBALAMIN 500 MCG TABLET PO (08:18)
[2024-03-22] MEDS: atenoloL 50 MG TABLET PO (08:18)
[2024-03-22] MEDS: SIMVASTATIN 20 MG TABLET PO (08:19)
[2024-03-22] MEDS: CHOLECALCIFEROL 1,000 UNITS TABLET 2000 UNITS PO (08:19)
[2024-03-22] MEDS: TAMSULOSIN HCL 0.4 MG CAPSULE PO (08:19)
[2024-03-22] MEDS: PANTOPRAZOLE 40 MG TABLET PO (08:19)
[2024-03-22] MEDS: FUROSEMIDE 40 MG TABLET PO (08:19)
[2024-03-22] MEDS: APIXABAN 5 MG TABLET PO (08:19)
[2024-03-22 08:23] VITALS: BP 124/71; PULSE 82; RESP 16; TEMP 36.4; O2SAT 94; O2SAT 96
[2024-03-22 09:43] LABS: NT Pro B Type Natriuretic Pept 1910 pg/mL (19.9-100)
--- NOTE | 2024-03-22 10:23 | P.DS_ITS ---
DS: Admitting Diagnosis Discharge Date 03/22/2024 Admitting Diagnosis Worsening SOB DS: Discharge Diagnosis Discharge Diagnosis (1) CHF exacerbation: Qualifiers: Heart failure type: unspecified Qualified Code(s): I50.9 - Heart failure, unspecified Code(s): I50.9 - Heart failure, unspecified Status: Acute Assessment and Plan: * Acute on Chronic. * Will be discharged on Lasix 40 mg PO BID per cardiology recommendations. * Echocardiogram showed: Summary 1. Complete two-dimensional, color flow and Doppler transthoracic echocardiogram is performed. 2. Normal LV size and concentric LVH preserved LV fxn. 3. Enlarged RV mild hypokinesis. 4. Severe TR with severe PHTN.- Consult Cardiology. 5. Biatrial dilatation. 6. Moderate MR. Left Ventricle Left ventricular chamber dimension is normal. Left ventricular systolic function is normal, estimated at 60-65%. There is mildly increased left ventricular wall thickness. * Venous doppler- negative. (2) Hyponatremia: Code(s): E87.1 - Hypo-osmolality and hyponatremia Status: Acute Assessment and Plan: * Acute. * Asymptomatic. * Possibly related to CHF. * Monitor labs outpatient. (3) Hypomagnesemia: Code(s): E83.42 - Hypomagnesemia Status: Acute Assessment and Plan: * Acute. * Replaced prior to discharge. (4) Chronic anemia: Code(s): D64.9 - Anemia, unspecified Status: Acute Assessment and Plan: * Chronic. * Remained stable inpatient. (5) Thrombocytopenia: Code(s): D69.6 - Thrombocytopenia, unspecified Status: Acute Assessment and Plan: * Chronic. * Platelet count improved inpatient from previous baseline. (6) Hypertension: Code(s): I10 - Essential (primary) hypertension Status: Acute Assessment and Plan: * Chronic. * Remained well controlled inpatient. (7) Chronic atrial fibrillation: Code(s): I48.20 - Chronic atrial fibrillation, unspecified Status: Acute Assessment and Plan: * Chronic. * Remained well controlled inpatient. (8) Type 2 diabetes mellitus: Code(s): E11.9 - Type 2 diabetes mellitus without complications Status: Acute Assessment and Plan: * Chronic. * Remained well controlled inpatient. (9) Chronic obstructive pulmonary disease: Code(s): J44.9 - Chronic obstructive pulmonary disease, unspecified Status: Acute Assessment and Plan: * Remained stable inpatient. Plan Discharge Home. DS: Summary Hospital Course Reason for hospitalization: Shortness of Breath Hospital Course: Patient presented to the ER with reports of worsening SOB, weight gain and breanna. LE edema. Patient has a Hx of Severe TR and his TT ECHO showed severe PHTN. Patient's symptoms were suspected to be related to CHF exacerbation. Patient was initially diuresed with IV Lasix 40 mg BID that was changed to 40 mg PO BID per airline ticket agent recommendations. He was previously on 20 mg PO lasix QD at home. Patient was just discharged from this facility about 3 weeks prior to this presentation after being treated for acute hypoxic respiratory failure secondary to PNA and Covid-19 viral infection. He was discharged on 2L/NC on that admission and has been on supplemental O2 since then. He's back to his baseline O2 at 2L/NC with sats > 92 %. Conservative mgt was previously recommended for his severe TR with close monitoring outpatient per airline ticket agent. Patient reports he's back to his baseline and wants to go home today. Patient has been cleared for discharge per cardiology and he's medically stable for discharge with no acute distress noted or reported prior to discharge. Time Spent with Patient Time attestation: Total time spent providing and/or coordinating discharge services: Time spent: Greater than 30 minutes Exam Narrative: General: Well-developed, well appearing and in no acute distress. HEENT: PERRL, EOMI. Sclera anicteric. Oral mucosa moist. Some missing teeth. Neck: Supple. Respiratory: Respirations nonlabored. Currently on 2 L/NC, lungs diminished bilaterally. Cardiovascular: Irregularly irregular rate and rhythm with S1-S2. Systolic murmur at left sternal border and apex. Gastrointestinal: Abdomen soft, nontender, nondistended, +ve bowel sounds X4 quadrants. Genitourinary: Gan catheter draining light yellow urine. Skin: Warm and dry. No rash or lesions noted. Extremities: No cyanosis or clubbing. 2+ bilateral lower extremity edema, L>R. Neurological: Alert. Cranial nerves II-XII grossly intact. No gross focal deficits noted. Psychiatric: Pleasant and cooperative. DS: Data Data Completed and Pending Labs on day of discharge: Labs from last 24 hours 03/22/24 03/22/24 03/22/24 07:49 05:20 05:16 WBC 4.6 RBC 4.04 L Hgb 10.6 L Hct 34.0 L MCV 84.2 MCH 26.2 MCHC 31.2 L RDW 18.6 H Plt Count 130 L MPV 10.0 Immature Gran % (Auto) 0.2 Neut % (Auto) 68.5 Lymph % (Auto) 19.0 [place] % (Auto) 11.2 H Eos % (Auto) 0.2 Baso % (Auto) 0.9 Lymph # (Auto) 0.88 L [place] # (Auto) 0.5 Eos # (Auto) 0.0 Baso # (Auto) 0.0 Abs Immat Gran (auto) 0.01 Absolute Neuts (auto) 3.2 Absolute Nucleated RBC 0.000 Nucleated RBC % 0.0 % Immature Plt Fraction 4.7 Sodium 126 L Potassium 3.7 Chloride 87 L Carbon Dioxide 38 H Anion Gap 1 L BUN 15 Creatinine 0.58 L Estim Creat Clear Calc 85 Estimated GFR > 60 Glucose 89 POC Capillary Glucose 90 Calcium 7.4 L Magnesium 1.9 Total Bilirubin 1.1 AST 28 ALT 16 Alkaline Phosphatase 76 NT-Pro-B Natriuret Pep 1910 H Total Protein 6.0 L Albumin 3.0 L 03/21/24 03/21/24 03/21/24 20:21 17:22 13:02 WBC RBC Hgb Hct MCV MCH MCHC RDW Plt Count MPV Immature Gran % (Auto) Neut % (Auto) Lymph % (Auto) [place] % (Auto) Eos % (Auto) Baso % (Auto) Lymph # (Auto) [place] # (Auto) Eos # (Auto) Baso # (Auto) Abs Immat Gran (auto) Absolute Neuts (auto) Absolute Nucleated RBC Nucleated RBC % % Immature Plt Fraction Sodium Potassium Chloride Carbon Dioxide Anion Gap BUN Creatinine Estim Creat Clear Calc Estimated GFR Glucose POC Capillary Glucose 111 H 101 260 H Calcium Magnesium Total Bilirubin AST ALT Alkaline Phosphatase NT-Pro-B Natriuret Pep Total Protein Albumin Discharge Plan Discharge Attending physician on discharge: Isha Dumas Consulting providers: Kassi Diana Discharging Clinician: Avni Amezcua Anticipated Discharge Date/Time: 03/22/24 10:47 Patient Disposition: Home, Self-Care Activity: as tolerated Diet: heart healthy Patient Instructions: Antibiotic Form, Apixaban (By mouth), COPD (Chronic Obstructive Pulmonary Disease) (DC) Patient Language: Citizen Of [place] Stand Alone Forms: General Discharge Information Follow-up/Referrals: Tal Olsen MD [Primary Care Provider] - 1 Week Kassi Diana MD [Physician] - 2 Weeks Discharge Medications: New furosemide 40 mg Tablet 40 mg PO DAILY Qty: 30 0RF Continued albuterol sulfate 90 mcg/actuation HFA aerosol inhaler 2 - 4 puff INHALATION QID PRN (Reason: shortness of breath or wheezing) Qty: 8.5 3RF cholecalciferol (vitamin D3) 50 mcg (2,000 unit) capsule 2,000 unit PO DAILY metformin 500 mg tablet 500 mg PO BID Qty: 180 2RF mecobalamin (vitamin B12) 500 mcg tablet,chewable 500 mcg PO .MWF oxygen 2 l inhalation DAILY Rx Instructions: -on 2 liters of O2 diltiazem HCl 60 mg tablet 60 mg PO Q8H tamsulosin 0.4 mg capsule 0.4 mg PO DAILY simvastatin 20 mg tablet 20 mg PO DAILY atenolol 50 mg tablet 50 mg PO DAILY Eliquis 5 mg tablet 5 mg PO BID omeprazole magnesium [Prilosec OTC] 20 mg Tablet,Delayed Release (Dr/Ec) 20 mg PO DAILY Qty: 30 0RF temazepam 15 mg capsule 15 mg PO QHS PRN (Reason: sleep) Qty: 30 1RF Discontinued furosemide 20 mg tablet 20 mg PO DAILY Qty: 60 2RF Date of admission: 03/19/24 16:35 Primary Care Provider: Tal Olsen Admitting Provider: Jack Reyna Attending physician on admission: Jack Reyna Condition: Stable Quality VTE Prophylaxis VTE prophylaxis: pharmacologic ordered (on apixaban) Hospitalist MIPS Heart Failure (Exclusion) Patient has history of Heart Transplant or Left Ventricular Assistive Device?: No IF YES, STOP HERE Heart Failure (Qualifier) Patient has current or prior documentation of LVEF less than or equal to 40%, or mod/servere depressed LVSF?: No IF NO, STOP HERE
[2024-03-22 12:17] LABS: Glucose Point of Care 184 mg/dl (65-105)
== END 2024-03-22 14:05 | disposition home or self-care (01) | DRG 291 ==
LOC: ANHED 18:43 → ANH3MEDSUR 19:14 → ANH2MED 21:09
PROVIDERS: Nurse Practitioner Family; Physician Assistant; Admitting Provider Internal Medicine; Emergency Provider Physician Assistant; PCP Emergency Medicine; Visit Provider Nurse Practitioner Adult Health
DX: I11.0 Hypertensive heart disease with heart failure (principal); I50.33 Acute on chronic diastolic (congestive) heart failure; E27.40 Unspecified adrenocortical insufficiency; J96.11 Chronic respiratory failure with hypoxia; I47.10 Supraventricular tachycardia, unspecified; I48.20 Chronic atrial fibrillation, unspecified; E87.1 Hypo-osmolality and hyponatremia; I25.10 Atherosclerotic heart disease of native coronary artery without angina pectoris; I34.0 Nonrheumatic mitral (valve) insufficiency; I36.1 Nonrheumatic tricuspid (valve) insufficiency; I27.20 Pulmonary hypertension, unspecified; J44.9 Chronic obstructive pulmonary disease, unspecified; D69.6 Thrombocytopenia, unspecified; E11.9 Type 2 diabetes mellitus without complications; E83.42 Hypomagnesemia; E53.8 Deficiency of other specified B group vitamins; E55.9 Vitamin D deficiency, unspecified; E78.2 Mixed hyperlipidemia; K21.9 Gastro-esophageal reflux disease without esophagitis; N40.0 Benign prostatic hyperplasia without lower urinary tract symptoms; Z99.81 Dependence on supplemental oxygen; Z79.01 Long term (current) use of anticoagulants; Z95.5 Presence of coronary angioplasty implant and graft; Z87.891 Personal history of nicotine dependence; Z86.0101 Personal history of adenomatous and serrated colon polyps
CPT/HCPCS: 36415; 71046; 71275; 80048; 80053; 81001; 82948; 83036; 83735; 83880; 84443; 85025; 85027; 85055; 85380; 85610; 85730; 87086; 93005; 93306; 93970; 94640; 96365; 96367; 96375; 96376; 99285; A9270; G0378; J0456; J0696; J1815; J1940; J3475; Q9967

== ENCOUNTER 2024-04-05 14:53 | Outpatient (CLI) | payer MEDICARE, SELFPAY ==
[2024-04-05 15:33] LABS: Alanine Aminotransferase 16 U/L (6-50); Albumin Level 3.6 g/dL (3.5-5.1); Alkaline Phosphatase 86 U/L (38-126); Anion Gap 8 mmol/L (4-12); Aspartate Amino Transferase 34 U/L (17-59); Bilirubin,Total 1.2 mg/dL (0.2-1.3); Blood Urea Nitrogen 21 mg/dL (9-20); Calcium 8.8 mg/dL (8.4-10.2); Carbon Dioxide 36 mmol/L (22-30); Chloride 86 mmol/L (98-107); Estimated Glomerular Filt Rate > 60; Glucose 119 mg/dL (65-110); Potassium 4.4 mmol/L (3.4-5.0); Sodium 130 mmol/L (137-145)
[2024-04-05 16:38] LABS: Hemoglobin A1C 6.3 % (<5.7)
--- OUTSIDE RECORDS SUMMARY | 2024-04-07 02:37 | XMS_ITS | Clinical Summary ---
Author Organization [facility] Address [address] [place] [address] Phone Care Team Providers Care Physical Geographer Name Role Phone Tal Olsen MD Primary Care Provider [phone] Allergies Active Allergy Reactions Criticality Noted Date Comments Ibuprofen Other (see Comments) 03/24/2024 Stomach upset Lisinopril Swelling 03/24/2024 Swelling of airway Medications Cholecalcifero l 50 mcg Tablet Take 50 mcg by mouth daily. Active vitamin b-12 (CYANOCOBALAMI N) 500 MCG TabletIndicati ons:Vitamin B12 Deficiency Take 500 mcg by mouth daily. Wednesday, wed, Wednesday Indications: Inadequate Vitamin B12 Active metFORMIN (GLUCOPHAGE) 500 MG Tablet Take 500 mg by mouth 2 times daily (with meals). Active albuterol 108 (90 Base) MCG/ACT Aerosol Solution take by inhalation every 6 hours as needed (sob, wheezing). 2-4 inhalations Active temazepam (RESTORIL) 15 MG Capsule Take 15 mg by mouth nightly. Active tamsulosin (FLOMAX) 0.4 MG Capsule Take 0.4 mg by mouth daily. Active apixaban (ELIQUIS) 5 MG Tablet Take 5 mg by mouth 2 times daily. Active simvastatin (ZOCOR) 20 MG Tablet Take 20 mg by mouth daily. Active omeprazole (PriLOSEC) 20 MG CAPSULE DELAYED RELEASE Take 20 mg by mouth daily. Active dilTIAZem (CARDIZEM) 60 MG Tablet Take 60 mg by mouth 3 times daily. Active metoprolol Succinate (TOPROL-XL) 50 MG TABLET SR 24 HR Take 1 Tablet by mouth daily. 90 Tablet 1 03/28/19 25 Active ondansetron (ZOFRAN-ODT) 4 MG TABLET DISPERSIBLE Take 1 Tablet by mouth every 6 hours as needed for Nausea - 1st line. 10 Tablet 03/28/19 25 Active senna (SENOKOT) 8.6 MG Tablet Take 1 Tablet by mouth 2 times daily as needed for Constipation - 2nd line. 30 Tablet 03/28/19 25 Active furosemide (Lasix) 40 MG Tablet Take 1 Tablet by mouth 2 times daily (with meals). 90 Tablet 03/28/19 25 Active Empagliflozin (Jardiance) 10 MG Tablet Take 1 Tablet by mouth daily for 30 days. 30 Tablet 03/28/19 25 2024 Active spironolactone (ALDACTONE) 25 MG Tablet Take 0.5 Tablets by mouth daily. 45 Tablet 2 03/28/19 25 Active furosemide (Lasix) 40 MG Tablet Take 40 mg by mouth daily. 2024 Discontinued atenolol (TENORMIN) 50 MG Tablet Take 50 mg by mouth daily. 2024 Discontinued(A lternate therapy) Active Problems Problem Noted Date Diagnosed Date Hypomagnesemia 03/28/2024 Acute exacerbation of CHF (congestive heart fail ure) 03/24/2024 Acute on chronic diastolic heart failure 025 Chronic atrial fibrillation 03/24/2024 COPD (chronic obstructive pulmonary disease) 12/2024 Hyponatremia 03/24/2024 Congestive heart failure (CHF) Diabetes mellitus Hypertension Encounters Date Type Department Care Team Description 04/05/[address] [facility] [address], [place] [id number] Xiao Pacheco RN Patient Outreach (PITA 1 ) 03/30/2024 Results Follow-Up [facility] - Pulmonology & [facility] Medicine [facility] [address] [place] [address] Faizan Yadav MD 03/29/2024 Patient Outreach [facility] [address], [place] [id number] Nimisha Garcia RN Transition of Care (Post discharge, initial call, CHF ) 03/24/2024 10:56 AM GEOTECHNICAL OPERATING ENGINEER - 03/28/2024 1:34 PM GEOTECHNICAL OPERATING ENGINEER Hospital Encounter [facility] Med Surg [address] [address] Silvnaa Fischer APRN, [employer] Brayan, MD Mamadou Pang Crystal Marie, MD Acute on chronic diastolic heart failure (HCC) Discharge Disposition: Discharged to home or Selfcare 03/24/2024 Travel from Last 3 Months Social History Tobacco Use Types Packs/Day Years Used Date Smoking Tobacco: Former Cigarettes Tobacco Cessation:Counseling Given: Not Answered Alcohol Use Standard Drinks/Week Comments Not Currently 0 (1 standard drink = 0.6 oz pur e alcohol) [facility] Utilities Answer Date Recorded In the past 12 months has th e electric, gas, oil, or water company threatened to shut off services in your home? Patient declined 03/24/2024 Social Connection and Isolation Panel [NHANES] A nswer Date Recorded In a typical week, how many times do you talk on the phone with family, friends, or neighbors? Patient declined 03/24/2024 How often do you get togethe r with friends or relatives? Patient declined 03/24/2024 How often do you attend sabianism or catholic serv ices? Patient declined 03/24/2024 Do you belong to any clubs o r organizations such as sabianism groups, unions, fraternal or athletic groups, or school groups? Patient declined 03/24/2024 How often do you attend meet ings of the clubs or organizations you belong to? Patient declined 03/24/2024 Are you , , di vorced, , never , or living with a partner? Patient declined 03/24/2024 AUDIT-C Answer Date Recorded Q1: How often do you have a drink containing alc ohol? Patient declined 03/24/2024 Q2: How many drinks containi ng alcohol do you have on a typical day when you are drinking? Patient declined 03/24/2024 Q3: How often do you have si x or more drinks on one occasion? Patient declined 03/24/2024 Overall Financial Resource Strain (CARDIA) Answe r Date Recorded How hard is it for you to pa y for the very basics like food, housing, medical care, and heating? Patient declined 03/24/2024 [facility] - Occupational Stress Questionnaire Answer Date Recorded Do you feel stress - tense, restless, nervous, or anxious, or unable to sleep at night because your mind is troubled all the time - these days? Patient declined 03/24/2024 Exercise Vital Sign Answer Date Recorde d On average, how many days pe r week do you engage in moderate to strenuous exercise (like a brisk walk)? Patient declined On average, how many minutes do you engage in exercise at this level? Patient declined 03/24/2024 Hunger Vital Sign Answer Date Recorded Within the past 12 months, y ou worried that your food would run out before you got the money to buy more. Patient declined Within the past 12 months, t he food you bought just didn't last and you didn't have money to get more. Patient declined 12/2024 PRAPARE - Transportation Answer Date Re corded In the past 12 months, has l ack of transportation kept you from medical appointments or from getting medications? Patient declined 03/24/2024 In the past 12 months, has l ack of transportation kept you from meetings, work, or from getting things needed for daily living? Patient declined 03/24/2024 Housing Stability Vital Sign Answer Maldonado e Recorded In the last 12 months, was t here a time when you were not able to pay the mortgage or rent on time? Patient declined 03/24/19 25 In the past 12 months, how m any times have you moved where you were living? 1 03/24/2024 At any time in the past 12 m [facility], were you homeless or living in a skilled nursing (including now)? 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 Sex Male 10:56 AM GEOTECHNICAL OPERATING ENGINEER Gender Identity Not on file Sexual Orientation Not on file Last Filed Vital Signs Vital Sign Reading Time Taken Comments Blood Pressure 108/67 03/28/2024 4:40 AM GEOTECHNICAL OPERATING ENGINEER Pulse 79 03/27/2024 1:32 PM GEOTECHNICAL OPERATING ENGINEER Temperature 36.1 ??C (96.9 ??F) 03/28/2024 4:40 AM CS T Respiratory Rate 18 03/28/2024 4:40 AM GEOTECHNICAL OPERATING ENGINEER Oxygen Saturation 97% 03/28/2024 9:00 AM GEOTECHNICAL OPERATING ENGINEER Inhaled Oxygen Concentration - - Weight 76.4 kg (168 lb 6 oz) 03/28/2024 6:00 AM GEOTECHNICAL OPERATING ENGINEER Height 172.7 cm (5' 8 ) 03/24/2024 3:52 PM GEOTECHNICAL OPERATING ENGINEER Body Mass Index 25.6 03/24/2024 3:52 PM GEOTECHNICAL OPERATING ENGINEER Plan of Treatment Upcoming Encounters Date Type Department Care Team (Late st Contact Info) Description 04/10/2024 2:00 PM GEOTECHNICAL OPERATING ENGINEER Office Visit [facility] [address] [place] [address] Faizan Yadav MD [address] [place] [address] Health Maintenance Due Date Last Done Comments Diabetes: Eye Exam 1944 Diabetes: Foot Exam 1944 Diabetes: Hemoglobin A1c 1944 Hepatitis C Virus (HCV) Screening 1945 TdaP Immunization 1944 Pneumococcal Immunization (5 0+ years) (1 of 2 - PCV) 07/27/1963 Zoster Immunization (1 of 2) 1994 Respiratory Syncytial Virus (RSV) Immunization (Adult) (1 - 1-dose 75+ series) 07/27/2019 Influenza Immunization (#1) 2023 SARS-COV-2 Immunization ( season) 2023 01/27/2021, 12/20/2020 Diabetes: Nephropathy Screening 03/24/2025 03/24/2024 Hepatitis B Immunization Aged Out No longer eligible based on patient's age to complete this topic Meningococcal Immunization (ACWY) Aged Out No longer eligible b ased on patient's age to complete this topic Rotavirus Immunization Aged Out No lo nger eligible based on patient's age to complete this topic Procedures Procedure Name Priority Date/Time Associated Diagnosis Comments XR CHEST SINGLE VIEW PORTABLE STAT 03/28/2024 12:46 PM GEOTECHNICAL OPERATING ENGINEER US CHEST INCLUDES MEDIASTINUM Routine 03/28/2024 12:16 PM GEOTECHNICAL OPERATING ENGINEER PATHOLOGY CYTOLOGY NON-INSURANCE ADMINISTRATIVE ASSISTANT Routine 03/28/2024 12:07 PM GEOTECHNICAL OPERATING ENGINEER FLUID, DIFFERENTIAL Routine 03/28/2024 1 2:07 PM GEOTECHNICAL OPERATING ENGINEER BODY FLUID, TOTAL PROTEIN Routine 03/28/2024 12:07 PM GEOTECHNICAL OPERATING ENGINEER BODY FLUID, LACTATE DEHYDROGENASE (LD) Routine 03/28/2024 12:07 PM GEOTECHNICAL OPERATING ENGINEER BODY FLUID, GLUCOSE Routine 03/28/2024 1 2:07 PM GEOTECHNICAL OPERATING ENGINEER BODY FLUID CELL COUNT W/ DIFFERENTIAL Routine 03/28/2024 12:07 PM GEOTECHNICAL OPERATING ENGINEER CULTURE, BODY FLUID (MARY) Routine 03/28/2024 12:07 PM GEOTECHNICAL OPERATING ENGINEER CULTURE, AEROBIC Routine 03/28/2024 12:0 7 PM GEOTECHNICAL OPERATING ENGINEER SMEAR, TB (ACID FAST BACILLI) Routine 03/28/2024 12:07 PM GEOTECHNICAL OPERATING ENGINEER SMEAR, GRAM STAIN Routine 03/28/2024 12: 07 PM GEOTECHNICAL OPERATING ENGINEER CULTURE, TB (ACID FAST BACILLI) Routine 03/28/2024 12:07 PM GEOTECHNICAL OPERATING ENGINEER CULTURE, FUNGUS Routine 03/28/2024 12:07 PM GEOTECHNICAL OPERATING ENGINEER POCT GLUCOSE Routine 03/28/2024 11:31 AM GEOTECHNICAL OPERATING ENGINEER POCT GLUCOSE Routine 03/28/2024 7:37 AM GEOTECHNICAL OPERATING ENGINEER CBC WITH AUTO DIFFERENTIAL Routine 03/28/2024 5:02 AM GEOTECHNICAL OPERATING ENGINEER PROTIME (PT) (PROTHROMBIN TIME) Routine 03/28/2024 5:02 AM GEOTECHNICAL OPERATING ENGINEER APTT (PTT) Routine 03/28/2024 5:02 AM GEOTECHNICAL OPERATING ENGINEER COMPLETE BLOOD COUNT (CBC) WITH DIFF Routine 03/28/2024 5:02 AM GEOTECHNICAL OPERATING ENGINEER BASIC METABOLIC PANEL W/ CALCIUM TOTAL Routine 03/28/2024 5:02 AM GEOTECHNICAL OPERATING ENGINEER RHYTHM STRIP 03/28/2024 12:00 AM GEOTECHNICAL OPERATING ENGINEER RHYTHM STRIP 03/28/2024 12:00 AM GEOTECHNICAL OPERATING ENGINEER POCT GLUCOSE Routine 03/27/2024 7:47 PM GEOTECHNICAL OPERATING ENGINEER POCT GLUCOSE Routine 03/27/2024 4:22 PM GEOTECHNICAL OPERATING ENGINEER POCT GLUCOSE Routine 03/27/2024 12:05 PM GEOTECHNICAL OPERATING ENGINEER POCT GLUCOSE Routine 03/27/2024 7:09 AM GEOTECHNICAL OPERATING ENGINEER CBC WITH AUTO DIFFERENTIAL Routine 03/27/2024 4:37 AM GEOTECHNICAL OPERATING ENGINEER COMPLETE BLOOD COUNT (CBC) WITH DIFF Routine 03/27/2024 4:37 AM GEOTECHNICAL OPERATING ENGINEER BASIC METABOLIC PANEL W/ CALCIUM TOTAL Routine 03/27/2024 4:37 AM GEOTECHNICAL OPERATING ENGINEER RHYTHM STRIP 03/27/2024 12:00 AM GEOTECHNICAL OPERATING ENGINEER RHYTHM STRIP 03/27/2024 12:00 AM GEOTECHNICAL OPERATING ENGINEER RHYTHM STRIP 03/27/2024 12:00 AM GEOTECHNICAL OPERATING ENGINEER POCT GLUCOSE Routine 03/26/2024 7:34 PM GEOTECHNICAL OPERATING ENGINEER POCT GLUCOSE Routine 03/26/2024 4:26 PM GEOTECHNICAL OPERATING ENGINEER POCT GLUCOSE Routine 03/26/2024 11:50 AM GEOTECHNICAL OPERATING ENGINEER POCT GLUCOSE Routine 03/26/2024 8:21 AM GEOTECHNICAL OPERATING ENGINEER CBC WITH AUTO DIFFERENTIAL Routine 03/26/2024 4:56 AM GEOTECHNICAL OPERATING ENGINEER COMPLETE BLOOD COUNT (CBC) WITH DIFF Routine 03/26/2024 4:56 AM GEOTECHNICAL OPERATING ENGINEER BASIC METABOLIC PANEL W/ CALCIUM TOTAL Routine 03/26/2024 4:56 AM GEOTECHNICAL OPERATING ENGINEER RHYTHM STRIP 03/26/2024 12:00 AM GEOTECHNICAL OPERATING ENGINEER RHYTHM STRIP 03/26/2024 12:00 AM GEOTECHNICAL OPERATING ENGINEER POCT GLUCOSE Routine 03/25/2024 9:50 PM GEOTECHNICAL OPERATING ENGINEER POCT GLUCOSE Routine 03/25/2024 4:15 PM GEOTECHNICAL OPERATING ENGINEER BASIC METABOLIC PANEL W/ CALCIUM TOTAL STAT 03/25/2024 3:12 PM GEOTECHNICAL OPERATING ENGINEER POCT GLUCOSE Routine 03/25/2024 11:06 AM GEOTECHNICAL OPERATING ENGINEER AEROSOL NEBULIZER-INITIAL Routine 03/25/2024 9:43 AM GEOTECHNICAL OPERATING ENGINEER POCT GLUCOSE Routine 03/25/2024 7:31 AM GEOTECHNICAL OPERATING ENGINEER LAVENDER TOP TUBE Routine 03/25/2024 4:4 0 AM GEOTECHNICAL OPERATING ENGINEER EXTRA TUBES Routine 03/25/2024 4:40 AM GEOTECHNICAL OPERATING ENGINEER BASIC METABOLIC PANEL W/ CALCIUM TOTAL STAT 03/25/2024 4:40 AM GEOTECHNICAL OPERATING ENGINEER MAGNESIUM (MG) Routine 03/25/2024 4:40 AM GEOTECHNICAL OPERATING ENGINEER RHYTHM STRIP 03/25/2024 12:00 AM GEOTECHNICAL OPERATING ENGINEER RHYTHM STRIP 03/25/2024 12:00 AM GEOTECHNICAL OPERATING ENGINEER POCT GLUCOSE Routine 03/24/2024 11:06 PM GEOTECHNICAL OPERATING ENGINEER PT EVALUATE AND TREAT Routine 03/24/2024 3:48 PM GEOTECHNICAL OPERATING ENGINEER URINALYSIS REFLEX IF INDICATED BY ABNORMAL RESULTS STAT 03/24/2024 1:49 PM GEOTECHNICAL OPERATING ENGINEER CULTURE, URINE STAT 03/24/2024 1:49 PM GEOTECHNICAL OPERATING ENGINEER TROPONIN I, HIGH SENSITIVITY (HSTRP) STAT 03/24/2024 1:41 PM GEOTECHNICAL OPERATING ENGINEER XR CHEST SINGLE VIEW STAT 03/24/2024 12:20 PM GEOTECHNICAL OPERATING ENGINEER EKG 12 LEAD STAT 03/24/2024 11:53 AM GEOTECHNICAL OPERATING ENGINEER CBC WITH AUTO DIFFERENTIAL STAT 03/24/2024 11:45 AM GEOTECHNICAL OPERATING ENGINEER APTT (PTT) STAT 03/24/2024 11:45 AM GEOTECHNICAL OPERATING ENGINEER PROTIME (PT) (PROTHROMBIN TIME) STAT 03/24/2024 11:45 AM GEOTECHNICAL OPERATING ENGINEER TROPONIN I, HIGH SENSITIVITY (HSTRP) STAT 03/24/2024 11:45 AM GEOTECHNICAL OPERATING ENGINEER B-TYPE NATRIURETIC PEPTIDE (BNP) STAT 03/24/2024 11:45 AM GEOTECHNICAL OPERATING ENGINEER CMP (COMPREHENSIVE METABOLIC PANEL) STAT 03/24/2024 11:45 AM GEOTECHNICAL OPERATING ENGINEER COMPLETE BLOOD COUNT (CBC) WITH DIFF STAT 03/24/2024 11:45 AM GEOTECHNICAL OPERATING ENGINEER CRITICAL CARE Routine 03/24/2024 11:26 AM GEOTECHNICAL OPERATING ENGINEER RHYTHM STRIP 03/24/2024 12:00 AM GEOTECHNICAL OPERATING ENGINEER RHYTHM STRIP 03/24/2024 12:00 AM GEOTECHNICAL OPERATING ENGINEER EKG SCAN 03/24/2024 12:00 AM GEOTECHNICAL OPERATING ENGINEER CARDIOLOGY CONSULT 03/19/2024 12 :00 AM GEOTECHNICAL OPERATING ENGINEER ECHO GENERIC 03/18/2024 12:00 AM GEOTECHNICAL OPERATING ENGINEER EKG SCAN 03/17/2024 12:00 AM GEOTECHNICAL OPERATING ENGINEER from Last 3 Months Results * XR CHEST SINGLE VIEW PORTABLE (03/28/2024 12:46 PM GEOTECHNICAL OPERATING ENGINEER) Anatomical Region Laterality Modality Chest N/A Digital Radiogra phy 03/28/2024 12:5 4 PM GEOTECHNICAL OPERATING ENGINEER Impressions 03/28/2024 12:57 PM GEOTECHNICAL OPERATING ENGINEER IMPRESSION: Resolution previous right effusion and bibasilar consolidations. Persistent though improving linear densities left base. Narrative 03/28/2024 12:57 PM GEOTECHNICAL OPERATING ENGINEER EXAM DESCRIPTION: ?? XR CHEST SINGLE VIEW PORTABLE REASON FOR STUDY: ?? Shortness of breath today with chronic heart disease TECHNIQUE: ??Single-view COMPARISON: ??03/24/2024 FINDINGS: ??Central vascularity have normal caliber. ??Aortic arch well-defined on the left. Resolution previous right-sided effusion and bibasilar consolidations. ??Residual linear densities mostly left base persist though improving. No pneumothorax. THIS IS AN ELECTRONICALLY VERIFIED FINAL REPORT 03/28/2024 12:54 PM - Electronically signed by ??Mitch Barajas M.D. RB: RB D: ??03/28/2024 12:54 PM T: ??03/28/2024 12:54 PM Report ID: [id number] Reading Location: ??[id number] Procedure Note Mitch Barajas MD - 03/28/2024 EXAM DESCRIPTION: XR CHEST SINGLE VIEW PORTABLE REASON FOR STUDY: Shortness of breath today with chronic heart disease TECHNIQUE: Single-view COMPARISON: 03/24/2024 FINDINGS: Central vascularity have normal caliber. Aortic arch well-defined on the left. Resolution previous right-sided effusion and bibasilar consolidations. Residual linear densities mostly left base persist though improving. No pneumothorax. THIS IS AN ELECTRONICALLY VERIFIED FINAL REPORT 03/28/2024 12:54 PM - Electronically signed by Mitch Barajas M.D. RB: RB Report ID: [id number] Reading Location: [id number] IMPRESSION: Resolution previous right effusion and bibasilar consolidations. Persistent though improving linear densities left base. us Faizan Yadav MD [facility] [facility] ORDERABLES Final Result * US CHEST INCLUDES MEDIASTINUM (03/28/2024 12:16 PM GEOTECHNICAL OPERATING ENGINEER) us Faizan WARREN US ORDERABLES Final Result * Pathology Cytology Non-INSURANCE ADMINISTRATIVE ASSISTANT (03/28/2024 12:07 PM GEOTECHNICAL OPERATING ENGINEER) Case Report Medical Cytology Report ? Case: [id number] ? Authorizing Provider: ??Faizan Yadav MD ?Collected: ? 03/28/2024 12:07 PM ? [facility] ? [facility] ? Received: ?03/29/2024 08:47 AM ? [facility] ? Med Surg 2 South ? Pathologist: ? Kalli Rao MD PhD ? Specimen: ?Pleural Fluid, Right ? 03/30/2024 9:25 AM GEOTECHNICAL OPERATING ENGINEER [facility] FINAL DIAGNOSIS Pleural fluid, right, cytologic evaluation: - Adequate for evaluation - Benign - Mesothelial cells, histiocytes, and lymphocytes 03/30/2024 9:25 AM GEOTECHNICAL OPERATING ENGINEER [facility] at 0925 GEOTECHNICAL OPERATING ENGINEER Gross Description A. Specimen presents in two collection canisters. Both canisters are labeled with the patient's name, Marcos Echeverria, and designated pleural fluid, right. There is a total of 1300 mL of thick satinder fluid from which one cell block (fixed in 10% neutral buffered formalin) is prepared for cytologic examination. Total time of fixation is 12 hours, 46 minutes. KS/sb 03/30/2024 9:25 AM GEOTECHNICAL OPERATING ENGINEER [facility] Microscopic Description Microscopic examination was performed which supports the final diagnosis. All control tissues stained appropriately. 03/30/2024 9:25 AM GEOTECHNICAL OPERATING ENGINEER [facility] Pre-Operative Diagnosis Shortness of breath 03/30/2024 9:25 AM GEOTECHNICAL OPERATING ENGINEER [facility] Other (Pleural Fluid, Right) Non-Phlebotomy Collection / Unknown 03/28/2024 12:07 PM GEOTECHNICAL OPERATING ENGINEER 03/29/2024 8:47 AM GEOTECHNICAL OPERATING ENGINEER Faizan Yadav MD PATHOLOGY/CYTOLOGY ORDERABLES Fi nal Result [facility] [address] [place] [address] * Smear, TB - Thoracentesis Fluid (03/28/2024 12:07 PM GEOTECHNICAL OPERATING ENGINEER) FLUORESCENT SMEAR NO FLUORESCENT BACILLI SEEN NO FLUORESCENT BACILLI SEEN 03/29/2024 1:32 PM GEOTECHNICAL OPERATING ENGINEER [facility] Other SPECIMEN FROM PLEURA OBTAINED BY THORACENTESIS / Unknown Non-Phlebotomy Collection / Unknown 03/28/2024 12:07 PM GEOTECHNICAL OPERATING ENGINEER 03/28/2024 12:15 PM GEOTECHNICAL OPERATING ENGINEER us Faizan Yadav MD MICROBIOLOGY - GENERAL ORDERABLE S Final Result [facility] [address] [place] [address], [place] * Smear, Gram Stain (03/28/2024 12:07 PM GEOTECHNICAL OPERATING ENGINEER) GRAM STAIN No Organisms seen 03/28/2024 11:31 PM GEOTECHNICAL OPERATING ENGINEER [facility] Other SPECIMEN FROM PLEURA OBTAINED BY THORACENTESIS / Unknown Non-Phlebotomy Collection / Unknown 03/28/2024 12:07 PM GEOTECHNICAL OPERATING ENGINEER 03/28/2024 12:15 PM GEOTECHNICAL OPERATING ENGINEER us Faizan Yadav MD MICROBIOLOGY - GENERAL ORDERABLE S Final Result [facility] [address] [facility] [place] [address], [place] * Body Fluid, Total Protein (03/28/2024 12:07 PM GEOTECHNICAL OPERATING ENGINEER) PROTEIN BODY FLUID 2.9 g/dL [facility] TRACK 03/28/2024 10:47 PM GEOTECHNICAL OPERATING ENGINEER [facility] Comment:A reference range fo r this test has not been established by the [facility] laboratory system as a well-accepted reference range has not been established/published. Other analytical performance, such as accuracy, precision, measurement range, reportable range, and matrix compatibility, have been evaluated and validated by this laboratory. The provider must consider the results in conjunction with other laboratory and clinical data, such as the patient's corresponding serum level of the analyte, and the patient's presenting clinical history and physical exam. Consultation with the medical support assistant of the laboratory should be considered, as needed. Although the test has not been approved by the U.S. Food and Drug Administration, its approval is not required for clinical utility. This test should not be used alone for clinical diagnoses or patient treatment. FLUID SOURCE Pleural, right 03/28/2024 10:47 PM GEOTECHNICAL OPERATING ENGINEER [facility] Other SPECIMEN FROM PLEURA OBTAINED BY THORACENTESIS / Unknown Non-Phlebotomy Collection / Unknown 03/28/2024 12:07 PM GEOTECHNICAL OPERATING ENGINEER 03/28/2024 12:15 PM GEOTECHNICAL OPERATING ENGINEER us Faizan Yadav MD BODY FLUIDS & STOOLS ORDERABLES Final Result [facility] [address] [place] [address], [facility] [address] [place] [address] * Fluid, Differential (03/28/2024 12:07 PM GEOTECHNICAL OPERATING ENGINEER) FLUID NEUTROPHILS % 6 % 03/28/2024 3:52 PM GEOTECHNICAL OPERATING ENGINEER [facility] FLUID LYMPH % BKR 88 % 025 3:52 PM GEOTECHNICAL OPERATING ENGINEER [facility] FLUID MONO % 3 % 03/28/2024 3:52 PM GEOTECHNICAL OPERATING ENGINEER [facility] FLUID EOSINOPHILS % BKR 0 % 03/28/2024 3:52 PM GEOTECHNICAL OPERATING ENGINEER [facility] FLUID MACROPHAGE % 0 % 03/28/2024 3:52 PM GEOTECHNICAL OPERATING ENGINEER [facility] FLUID PLASMA CELL % 0 % 03/28/2024 3:52 PM GEOTECHNICAL OPERATING ENGINEER [facility] FLUID LINING CELL % 3 % 03/28/2024 3:52 PM GEOTECHNICAL OPERATING ENGINEER [facility] FLUID OTHER CELL % 0 % 03/28/2024 3:52 PM GEOTECHNICAL OPERATING ENGINEER [facility] TOTAL COUNT BODY FLUID DIFFERENTIAL BKR 100 03/28/2024 3:52 PM GEOTECHNICAL OPERATING ENGINEER [facility] FLUID LARGE MONO % BKR 0 % 03/28/2024 3:52 PM GEOTECHNICAL OPERATING ENGINEER [facility] FLUID TYPE Pleural, right 03/28/2024 3:52 PM GEOTECHNICAL OPERATING ENGINEER [facility] Other SPECIMEN FROM PLEURA OBTAINED BY THORACENTESIS / Unknown Non-Phlebotomy Collection / Unknown 03/28/2024 12:07 PM GEOTECHNICAL OPERATING ENGINEER 03/28/2024 12:15 PM GEOTECHNICAL OPERATING ENGINEER Faizan Yadav MD BODY FLUIDS & STOOLS ORDERABLES Final Result [facility] [address] [place] [address] * Body Fluid Cell Count w/ Differential (03/28/2024 12:07 PM GEOTECHNICAL OPERATING ENGINEER) FLUID TYPE Pleural, right 03/28/2024 3:52 PM GEOTECHNICAL OPERATING ENGINEER [facility] CLARITY Slightly Cloudy 03/28/2024 3:52 PM GEOTECHNICAL OPERATING ENGINEER [facility] COLOR Yellow 03/28/2024 3:52 PM GEOTECHNICAL OPERATING ENGINEER [facility] VOLUME 1,115.0 mLs 03/28/2024 3:52 PM GEOTECHNICAL OPERATING ENGINEER [facility] FLUID RBC COUNT <1,000 /mm(3) 03/28/2024 3:52 PM GEOTECHNICAL OPERATING ENGINEER [facility] FLUID, TOTAL NUCLEATED CELLS 758 /mm(3) 03/28/2024 3:52 PM GEOTECHNICAL OPERATING ENGINEER [facility] Other SPECIMEN FROM PLEURA OBTAINED BY THORACENTESIS / Unknown Non-Phlebotomy Collection / Unknown 03/28/2024 12:07 PM GEOTECHNICAL OPERATING ENGINEER 03/28/2024 12:15 PM GEOTECHNICAL OPERATING ENGINEER Narrative [facility] - 03/28/2024 3:52 PM GEOTECHNICAL OPERATING ENGINEER The reference range has not been established for this body fluid. The test result must be integrated into the clinical context for interpretation us Faizan Yadav MD BODY FLUIDS & STOOLS ORDERABLES Final Result [facility] [place] [address] * Culture, Body Fluid (MARY) (03/28/2024 12:07 PM GEOTECHNICAL OPERATING ENGINEER) CULTURE RESULTS STREPTOCOCCUS MITIS OR STREPTOCOCCUS ORALIS 03/30/2024 8:55 PM GEOTECHNICAL OPERATING ENGINEER [facility] Comment:DRUG OF CHOICE IS AM PICILLIN OR PENICILLIN GRAM STAIN 03/30/2024 8:55 PM GEOTECHNICAL OPERATING ENGINEER [facility] Comment:Culture positive aft er 15 hours and 42 mins Culture (Sterile Body Fluid) Non-Phlebotomy Collection / Unknown 03/28/2024 12:07 PM GEOTECHNICAL OPERATING ENGINEER 03/28/2024 9:43 PM GEOTECHNICAL OPERATING ENGINEER us Faizan Yadav MD MICROBIOLOGY - GENERAL ORDERABLE S Final Result [facility] [address] [place] [address], [place] * CULTURE, AEROBIC (03/28/2024 12:07 PM GEOTECHNICAL OPERATING ENGINEER) CULTURE RESULTS No growth final 04/01/2024 6:46 AM GEOTECHNICAL OPERATING ENGINEER [facility] Culture (Sterile Body Fluid) Non-Phlebotomy Collection / Unknown 03/28/2024 12:07 PM GEOTECHNICAL OPERATING ENGINEER 03/28/2024 12:15 PM GEOTECHNICAL OPERATING ENGINEER us Faizan Yadav MD MICROBIOLOGY - GENERAL ORDERABLE S Final Result Performing Organization Address [facility] Co de Phone Number [facility] [address] [place] [address], [place] * Body Fluid, Lactate Dehydrogenase (LD) (03/28/2024 12:07 PM GEOTECHNICAL OPERATING ENGINEER) FLUID SOURCE Pleural, right 03/28/2024 9:59 PM GEOTECHNICAL OPERATING ENGINEER [facility] FLUID LDH 101 U/L 03/28/2024 9:59 PM GEOTECHNICAL OPERATING ENGINEER [facility] Comment:A reference range fo r this test has not been established by the [facility] laboratory system as a well-accepted reference range has not been established/published. Other analytical performance, such as accuracy, precision, measurement range, reportable range, and matrix compatibility, have been evaluated and validated by this laboratory. The provider must consider the results in conjunction with other laboratory and clinical data, such as the patient's corresponding serum level of the analyte, and the patient's presenting clinical history and physical exam. Consultation with the medical support assistant of the laboratory should be considered, as needed. Although the test has not been approved by the U.S. Food and Drug Administration, its approval is not required for clinical utility. This test should not be used alone for clinical diagnoses or patient treatment. Other SPECIMEN FROM PLEURA OBTAINED BY THORACENTESIS / Unknown Non-Phlebotomy Collection / Unknown 03/28/2024 12:07 PM GEOTECHNICAL OPERATING ENGINEER 03/28/2024 12:15 PM GEOTECHNICAL OPERATING ENGINEER Faizan Yadav MD BODY FLUIDS & STOOLS ORDERABLES Final Result [facility] [address] [place] [address] [place] [address], [facility] [address] [place] [address] * Body Fluid, Glucose (03/28/2024 12:07 PM GEOTECHNICAL OPERATING ENGINEER) FLUID SOURCE Pleural, right 03/28/2024 9:59 PM GEOTECHNICAL OPERATING ENGINEER [facility] GLUCOSE BODY FLUID 137 mg/dL 03/28/2024 9:59 PM GEOTECHNICAL OPERATING ENGINEER [facility] Comment:A reference range fo r this test has not been established by the [facility] laboratory system as a well-accepted reference range has not been established/published. Other analytical performance, such as accuracy, precision, measurement range, reportable range, and matrix compatibility, have been evaluated and validated by this laboratory. The provider must consider the results in conjunction with other laboratory and clinical data, such as the patient's corresponding serum level of the analyte, and the patient's presenting clinical history and physical exam. Consultation with the medical support assistant of the laboratory should be considered, as needed. Although the test has not been approved by the U.S. Food and Drug Administration, its approval is not required for clinical utility. This test should not be used alone for clinical diagnoses or patient treatment. Other SPECIMEN FROM PLEURA OBTAINED BY THORACENTESIS / Unknown Non-Phlebotomy Collection / Unknown 03/28/2024 12:07 PM GEOTECHNICAL OPERATING ENGINEER 03/28/2024 12:15 PM GEOTECHNICAL OPERATING ENGINEER Faizan Yadav MD BODY FLUIDS & STOOLS ORDERABLES Final Result [facility] [address] [place] [address], [facility] [address] [place] [address] * (ABNORMAL) POCT Glucose (03/28/2024 11:31 AM GEOTECHNICAL OPERATING ENGINEER) Only the most recent of15 resultswithin the time period is included. [facility] GLUCOSE,BEDSID E POCT 146(H) 70 - 99 mg/dL 03/28/2024 11:41 AM GEOTECHNICAL OPERATING ENGINEER [facility] Blood 03/28/2024 11:3 1 AM GEOTECHNICAL OPERATING ENGINEER 03/28/2024 11:41 AM GEOTECHNICAL OPERATING ENGINEER us None Provider POINT OF CARE TESTING Final Resu lt [facility] [address] [place] [address] * (ABNORMAL) CBC with Auto Differential (03/28/2024 5:02 AM GEOTECHNICAL OPERATING ENGINEER) Only the most recent of4 resultswithin the time period is included. [facility] WBC 4.48 4.00 - 12.00 10(3)/mcL 03/28/2024 6:35 AM GEOTECHNICAL OPERATING ENGINEER [facility] RBC 4.22(L) 4.40 - 5.80 10(6)/[facility] 03/28/2024 6:35 AM [facility] HEMOGLOBIN (HGB) 11.4(L) 13.0 - 16.5 g/dL 03/28/2024 6:35 AM [facility] HEMATOCRIT (HCT) 36.6(L) 38.0 - 50.0 % 03/28/2024 6:35 AM [facility] MCV 86.7 82.0 - 96.0 fL 03/28/2024 6:35 AM [facility] MCH 27.0 26.0 - 32.0 pg 03/28/2024 6:35 AM [facility] MCHC 31.1 31.0 - 36.0 g/dL 03/28/2024 6:35 AM [facility] PLATELET COUNT 137(L) 140 - 440 10(3)/mcL 03/28/2024 6:35 AM [facility] RDW 18.5(H) 11.8 - 15.5 % 03/28/2024 6:35 AM [facility] MPV 9.4 8.0 - 12.6 fL 03/28/2024 6:35 AM [facility] NEUTROPHILS 65.4 40.0 - 68.0 % 03/28/2024 6:35 AM GEOTECHNICAL OPERATING ENGINEER [facility] LYMPHOCYTES 22.8 19.0 - 49.0 % 03/28/2024 6:35 AM [facility] MONOCYTES 10.7 3.0 - 13.0 % 03/28/2024 6:35 AM [facility] EOSINOPHILS 0.4 0.0 - 8.0 % 03/28/2024 6:35 AM [facility] BASOPHILS 0.7 0.0 - 1.0 % 03/28/2024 6:35 AM [facility] ABSOLUTE NEUTROPHILS 2.93 1.40 - 5.30 10(3)/[facility] 03/28/2024 6:35 AM [facility] ABSOLUTE LYMPHOCYTES 1.02 0.90 - 3.30 10(3)/[facility] 03/28/2024 6:35 AM [facility] ABSOLUTE MONOCYTES 0.48 0.10 - 0.90 10(3)/[facility] 03/28/2024 6:35 AM [facility] ABSOLUTE EOSINOPHIL 0.02 0.00 - 0.50 10(3)/[facility] 03/28/2024 6:35 AM [facility] ABSOLUTE BASOPHILS 0.03 0.00 - 0.10 10(3)/[facility] 03/28/2024 6:35 AM [facility] NRBC PER 100 WBC 0 03/28/19 6:35 AM [facility] Blood Venipuncture / Unknown 03/28/2024 5:02 AM GEOTECHNICAL OPERATING ENGINEER 03/28/2024 6:17 AM GEOTECHNICAL OPERATING ENGINEER us Mere Bowen CONVEYOR SYSTEM OPERATOR, ADJUNCT FACULTY MATHEMATICS DEPARTMENT HEMATOLOGY ORDERABLES Final Result [facility] [address] [place] [address] * APTT (PTT) (03/28/2024 5:02 AM GEOTECHNICAL OPERATING ENGINEER) Only the most recent of2 resultswithin the time period is included. PTT 34 24 - 36 sec 03/28/2024 6:40 AM GEOTECHNICAL OPERATING ENGINEER [facility] Blood Venipuncture / Unknown 03/28/2024 5:02 AM GEOTECHNICAL OPERATING ENGINEER 03/28/2024 6:17 AM GEOTECHNICAL OPERATING ENGINEER Narrative [facility] - 03/28/2024 6:40 AM GEOTECHNICAL OPERATING ENGINEER Therapeutic range for unfractionated heparin at 0.3-0.7 U/mL is an aPTT value in the range of 71-100 seconds. Critical value for the PTT test is >= 122 seconds. us Silvia Pimentel APRN, JIGNESH HEMATOLOGY ORDERABLES Fin al Result Performing Organization Address City/State/[facility] Co de Phone Number [facility] [address] [place] [address] * (ABNORMAL) PROTIME (PT) (PROTHROMBIN TIME) (03/28/2024 5:02 AM GEOTECHNICAL OPERATING ENGINEER) Only the most recent of2 resultswithin the time period is included. PROTIME-PATIENT 17.0(H) 11.6 - 14.8 sec 03/28/2024 6:40 AM GEOTECHNICAL OPERATING ENGINEER [facility] INR 1.4(H) 0.9 - 1.2 03/28/2024 6:40 AM GEOTECHNICAL OPERATING ENGINEER [facility] Comment: Therapeutic Ranges INR = 2.0-3.0: Venous thromb, atrial fib, pul embolism, tissue heart valve, ami. INR = 2.5-3.5: Mechanical heart valve Critical value for INR is >/= 4.5 Blood Venipuncture / Unknown 03/28/2024 5:02 AM GEOTECHNICAL OPERATING ENGINEER 03/28/2024 6:17 AM GEOTECHNICAL OPERATING ENGINEER us Silvia Pimentel CONVEYOR SYSTEM OPERATOR, ADJUNCT FACULTY MATHEMATICS DEPARTMENT HEMATOLOGY ORDERABLES Fin al Result [facility] [address] [place] [address] * (ABNORMAL) BMP with Ca, Total (03/28/2024 5:02 AM GEOTECHNICAL OPERATING ENGINEER) Only the most recent of5 resultswithin the time period is included. SODIUM 138 136 - 145 mmol/L 03/28/2024 6:50 AM GEOTECHNICAL OPERATING ENGINEER [facility] POTASSIUM 3.6 3.5 - 5.1 mmol/L 03/28/2024 6:50 AM [facility] CHLORIDE 89(L) 98 - 107 mmol/L 03/28/2024 6:50 AM [facility] CO2, VENOUS 40(H) 22 - 30 mmol/L 03/28/2024 6:50 AM [facility] ANION GAP 12.6 <18.0 mmol/L 03/28/2024 6:50 AM GEOTECHNICAL OPERATING ENGINEER [facility] GLUCOSE 82 70 - 99 mg/dL 03/28/2024 6:50 AM [facility] BUN 12 8 - 26 mg/dL 03/28/2024 6:50 AM [facility] CREATININE, BLOOD 0.74 0.70 - 1.30 mg/dL 03/28/2024 6:50 AM [facility] BUN/CREATININE RATIO 16 12 - 20 ratio 03/28/2024 6:50 AM [facility] CALCIUM 9.1 8.7 - 10.5 mg/dL 03/28/2024 6:50 AM [facility] GFR, ESTIMATED >60 >=60 03/28/2024 6:50 AM [facility] Comment: Creatinine Clearance is the preferred criteria for selecting drug dose adjustments in renally impaired patients. ??The GFR is provided as additional pertinent clinical information. GFR is reported in mL/min/1.73 sq m. Calculation based on the Chronic Kidney Disease Epidemiology Collaboration (CKD- EPI) equation refit without adjustment for race. GFR, EST. >60 >=60 025 6:50 AM GEOTECHNICAL OPERATING ENGINEER [facility] GFR, EST. NONAFRICAN >60 >=60 03/28/2024 6:50 AM GEOTECHNICAL OPERATING ENGINEER [facility] Blood Venipuncture / Unknown 03/28/2024 5:02 AM GEOTECHNICAL OPERATING ENGINEER 03/28/2024 6:16 AM GEOTECHNICAL OPERATING ENGINEER us Mere Bowen CONVEYOR SYSTEM OPERATOR, ADJUNCT FACULTY MATHEMATICS DEPARTMENT CHEMISTRY ORDERABLES Final Result Performing Organization Address City/[facility] Co de Phone Number [facility] [address] [place] [address] * RHYTHM STRIP (03/28/2024 12:00 AM GEOTECHNICAL OPERATING ENGINEER) Only the most recent of11 resultswithin the time period is included. 03/28/2024 Provider Scan IMG ECG ORDERABLES Final Result Performing Organization Address City/[facility] Co de Phone Number RESULTING AGENCY * Lavender Top Tube (03/25/2024 4:40 AM GEOTECHNICAL OPERATING ENGINEER) Blood No Phlebotomy Charged / Unknown 03/25/2024 4:40 AM GEOTECHNICAL OPERATING ENGINEER 03/25/2024 5:34 AM GEOTECHNICAL OPERATING ENGINEER Jose Luis Schmidt MD HEMATOLOGY ORDERABLES Fi nal Result Performing Organization Address City/[facility] Co de Phone Number [facility] [address] [place] [address] * (ABNORMAL) Magnesium (Mg) (03/25/2024 4:40 AM GEOTECHNICAL OPERATING ENGINEER) MAGNESIUM 1.4(L) 1.6 - 2.6 mg/dL 03/25/2024 5:54 AM GEOTECHNICAL OPERATING ENGINEER [facility] Blood Venipuncture / Unknown 03/25/2024 4:40 AM GEOTECHNICAL OPERATING ENGINEER 03/25/2024 5:25 AM GEOTECHNICAL OPERATING ENGINEER us Jose Luis Schmidt MD CHEMISTRY ORDERABLES Fin al Result [facility] [address] [place] [address] * (ABNORMAL) URINALYSIS REFLEX IF INDICATED BY ABNORMAL RESULTS (03/24/2024 1:49 PM GEOTECHNICAL OPERATING ENGINEER) SPECIFIC GRAVITY 1.005 1.003 - 1.030 03/24/2024 3:17 PM GEOTECHNICAL OPERATING ENGINEER [facility] URINE PH 7.0 5.0 - 9.0 03/24/2024 3:17 PM GEOTECHNICAL OPERATING ENGINEER [facility] WBC ESTERASE 25 /ul(A) Negative 03/24/2024 3:17 PM GEOTECHNICAL OPERATING ENGINEER [facility] NITRITE Negative Negative 03/24/2024 3:17 PM GEOTECHNICAL OPERATING ENGINEER [facility] PROTEIN, RANDOM URINE Negative Negative 03/24/2024 3:17 PM GEOTECHNICAL OPERATING ENGINEER [facility] URINE GLUCOSE, QUAL Negative Negative 03/24/2024 3:17 PM GEOTECHNICAL OPERATING ENGINEER [facility] URINE KETONES Negative Negative 03/24/2024 3:17 PM GEOTECHNICAL OPERATING ENGINEER [facility] UROBILINOGEN Normal Normal mg/dL 03/24/2024 3:17 PM GEOTECHNICAL OPERATING ENGINEER [facility] URINE BLOOD 50 /uL(A) Negative breezy/ul 03/24/2024 3:17 PM GEOTECHNICAL OPERATING ENGINEER [facility] URINALYSIS COLOR Pale yellow 025 3:17 PM GEOTECHNICAL OPERATING ENGINEER [facility] URINALYSIS CLARITY Clear 03/24/2024 3:17 PM [facility] WBC (Urine) 11-20(A) Negative, 0-5 /hpf 03/24/2024 3:17 PM [facility] URINE RBC'S 11-20(A) Negative, 0-2 /hpf 03/24/2024 3:17 PM [facility] EPITHELIAL CELLS Occasional /lpf 03/24/19 25 3:17 PM GEOTECHNICAL OPERATING ENGINEER [facility] BACTERIA, URINE Few(A) Negative /hpf 03/24/2024 3:17 PM GEOTECHNICAL OPERATING ENGINEER [facility] Urine URINE SPECIMEN COLLECTION, CLEAN CATCH / Unknown Non-Phlebotomy Collection / Unknown 03/24/2024 1:49 PM GEOTECHNICAL OPERATING ENGINEER 03/24/2024 2:38 PM GEOTECHNICAL OPERATING ENGINEER us Silvana Fischer CONVEYOR SYSTEM OPERATOR, ADJUNCT FACULTY MATHEMATICS DEPARTMENT URINE ORDERABLES Haylie l Result [facility] [address] [place] [address] * Culture, Urine (03/24/2024 1:49 PM GEOTECHNICAL OPERATING ENGINEER) CULTURE RESULTS PSEUDOMONAS AERUGINOSA 03/27/2024 8:15 PM GEOTECHNICAL OPERATING ENGINEER [facility] CULTURE RESULTS GRAM-NEGATIVE BACILLUS 03/27/2024 8:15 PM GEOTECHNICAL OPERATING ENGINEER [facility] Comment:SENSITIVITY NOT PERF ORMED CULTURE RESULTS ENTEROCOCCUS FAECALIS 03/27/2024 8:15 PM GEOTECHNICAL OPERATING ENGINEER [facility] Comment:SENSITIVITY NOT PERF ORMED Urine URINE SPECIMEN COLLECTION, CLEAN CATCH / Unknown Non-Phlebotomy Collection / Unknown 03/24/2024 1:49 PM GEOTECHNICAL OPERATING ENGINEER 03/24/2024 2:38 PM GEOTECHNICAL OPERATING ENGINEER Narrative [facility] - 03/27/2024 8:15 PM GEOTECHNICAL OPERATING ENGINEER Susceptibility not performed on enterococcus species. ??Due to high achievable concentrations in urine, Ampicillin is the drug of choice for treating infections limited to the lower urinary tract (regardless of Vancomycin susceptibility). ??For allergic patients, Nitrofurantoin or a quinolone may be substituted. Organism Antibiotic Method Susceptibility Pseudomonas aeruginosa Cefepime [facility] VITEK IIB 8 mcg/ml: Susceptible Pseudomonas aeruginosa Gentamicin [facility] V[facility] IIB Resistant Pseudomonas aeruginosa Levofloxacin [facility] IIB 4 mcg/ml: Resistant Pseudomonas aeruginosa Meropenem [facility] IIB <=0.25 mcg/ml: Susceptible Pseudomonas aeruginosa Piperacillin/Tazobactam [facility] Comment:Results to f dez Pseudomonas aeruginosa Tobramycin [facility] VITEK IIB <=1 mcg/ml: Susceptible Pseudomonas aeruginosa Piperacillin/Tazobactam SUZETTE QUESADA 23 mm: Susceptible us Silvana Fischer APRN, ADJUNCT FACULTY MATHEMATICS DEPARTMENT MICROBIOLOGY - GENERA L ORDERABLES Final Result Performing Organization Address City/[facility]/ZIP Co de Phone Number [facility] [address] [place] [address], [place] * TROPONIN I, HIGH SENSITIVITY (HSTRP) (03/24/2024 1:41 PM GEOTECHNICAL OPERATING ENGINEER) Only the most recent of2 resultswithin the time period is included. TROPONIN I, HIGH SENSITIVITY- LOPEZ 7 <=35 ng/L 03/24/2024 2:27 PM GEOTECHNICAL OPERATING ENGINEER [facility] Comment: High-sensitivity troponin I results are reported in ng/L making the result appear to be 1,000 times higher than the contemporary troponin I value which is reported in ng/ml. Results from [facility]. Blood Venipuncture / Unknown 03/24/2024 1:41 PM GEOTECHNICAL OPERATING ENGINEER 03/24/2024 1:58 PM GEOTECHNICAL OPERATING ENGINEER Silvana Fischer APRN, JIGNESH CHEMISTRY ORDERABLES Final Result Performing Organization Address City/[facility]/ZIP Co de Phone Number [facility] [place] [address] * XR CHEST SINGLE VIEW (03/24/2024 12:20 PM GEOTECHNICAL OPERATING ENGINEER) Anatomical Region Laterality Modality Chest N/A Digital Radiogra phy 03/24/2024 12:2 3 PM GEOTECHNICAL OPERATING ENGINEER Impressions 03/24/2024 12:25 PM GEOTECHNICAL OPERATING ENGINEER IMPRESSION: Concern for vascular congestion and edema versus peribronchial inflammation. Moderately large right-sided effusion with adjacent atelectasis and or infiltrate. Narrative 03/24/2024 12:25 PM GEOTECHNICAL OPERATING ENGINEER EXAM DESCRIPTION: ?? XR CHEST SINGLE VIEW REASON FOR STUDY: ?? low urine input, bilateral lower leg edema, sob for a couple days. ??Hx. CHF, Pneumonia, Afib, HTN ?? TECHNIQUE: ??Single-view COMPARISON: ??None available FINDINGS: ??Central vascularity somewhat ill-defined with perihilar interstitial densities that could indicate vascular congestion and edema or peribronchial inflammation. Moderately large right-sided effusion with the adjacent atelectasis and or infiltrate. ??Lesser changes left base. No pneumothorax. THIS IS AN ELECTRONICALLY VERIFIED FINAL REPORT 03/24/2024 12:23 PM - Electronically signed by ??Mitch Barajas M.D. RB: RB D: ??03/24/2024 12:23 PM T: ??03/24/2024 12:23 PM Report ID: [id number] Reading Location: ??[id number] Procedure Note Mitch Barajas MD - 03/24/2024 EXAM DESCRIPTION: XR CHEST SINGLE VIEW REASON FOR STUDY: low urine input, bilateral lower leg edema, sob for a couple days. Hx. CHF, Pneumonia, Afib, HTN TECHNIQUE: Single-view COMPARISON: None available FINDINGS: Central vascularity somewhat ill-defined with perihilar interstitial densities that could indicate vascular congestion and edema or peribronchial inflammation. Moderately large right-sided effusion with the adjacent atelectasis and or infiltrate. Lesser changes left base. No pneumothorax. THIS IS AN ELECTRONICALLY VERIFIED FINAL REPORT 03/24/2024 12:23 PM - Electronically signed by Mitch Barajas M.D. RB: MILTON Report ID: [id number] Reading Location: [id number] IMPRESSION: Concern for vascular congestion and edema versus peribronchial inflammation. Moderately large right-sided effusion with adjacent atelectasis and or infiltrate. Silvana Fischer CONVEYOR SYSTEM OPERATOR, ADJUNCT FACULTY MATHEMATICS DEPARTMENT IMG DIAGNOSTIC ORDERA BLES Final Result * EKG 12 LEAD (03/24/2024 11:53 AM GEOTECHNICAL OPERATING ENGINEER) Ventricular Rate 65 BPM EXTERNAL EKG QRS Duration 98 ms EXTERNAL EKG Q-T Duration 388 ms EXTERNAL EKG QTC CALCULATION 403 ms EXTERNAL EKG R Gormania -26 degrees EXTERNAL EKG T Gormania 74 degrees EXTERNAL EKG 03/24/2024 11:5 3 AM GEOTECHNICAL OPERATING ENGINEER Impressions EXTERNAL EKG - 03/25/2024 4:05 PM GEOTECHNICAL OPERATING ENGINEER Atrial fibrillation Nonspecific T wave abnormality Abnormal ECG No previous ECGs available Confirmed by Miles Garber ([id number]) on 03/25/2024 4:04:59 PM Narrative Procedure Note Miles Garber MD - 03/25/2024 IMPRESSION: Atrial fibrillation Nonspecific T wave abnormality Abnormal ECG No previous ECGs available Confirmed by Miles Garber ([id number]) on 03/25/2024 4:04:59 PM us Silvana Fischer CONVEYOR SYSTEM OPERATOR, ADJUNCT FACULTY MATHEMATICS DEPARTMENT IMG ECG ORDERABLES Fi nal Result EXTERNAL EKG * (ABNORMAL) Comprehensive Metabolic Panel (Cmp) [id number] (03/24/2024 11:45 AM GEOTECHNICAL OPERATING ENGINEER) SODIUM 129(L) 136 - 145 mmol/L 03/24/2024 12:26 PM [facility] POTASSIUM 4.1 3.5 - 5.1 mmol/L 03/24/2024 12:26 PM [facility] CHLORIDE 85(L) 98 - 107 mmol/L 03/24/2024 12:26 PM [facility] CO2, VENOUS 33(H) 22 - 30 mmol/L 03/24/2024 12:26 PM [facility] ANION GAP 15.1 <18.0 mmol/L 03/24/2024 12:26 PM [facility] GLUCOSE 107(H) 70 - 99 mg/dL 03/24/2024 12:26 PM [facility] BUN 15 8 - 26 mg/dL 03/24/2024 12:26 PM [facility] CREATININE, BLOOD 0.83 0.70 - 1.30 mg/dL 03/24/2024 12:26 PM [facility] BUN/CREATININE RATIO 18 12 - 20 ratio 03/24/2024 12:26 PM [facility] TOTAL PROTEIN 7.2 6.3 - 8.2 g/dL 03/24/2024 12:26 PM [facility] ALBUMIN 3.5 3.5 - 5.0 g/dL 03/24/2024 12:26 PM [facility] A/G RATIO 0.9(L) 1.0 - 2.2 03/24/2024 12:26 PM [facility] CALCIUM 9.3 8.7 - 10.5 mg/dL 03/24/2024 12:26 PM [facility] T BILI 1.1 0.2 - 1.2 mg/dL 03/24/2024 12:26 PM GEOTECHNICAL OPERATING ENGINEER [facility] SGOT (AST) 30 5 - 34 U/L 03/24/2024 12:26 PM [facility] SGPT (ALT) 17 0 - 55 U/L 03/24/2024 12:26 PM [facility] ALKALINE PHOSPHATASE 85 40 - 150 U/L 03/24/2024 12:26 PM [facility] GFR, ESTIMATED >60 >=60 03/24/2024 12:26 PM [facility] Comment: Creatinine Clearance is the preferred criteria for selecting drug dose adjustments in renally impaired patients. ??The GFR is provided as additional pertinent clinical information. GFR is reported in mL/min/1.73 sq m. Calculation based on the Chronic Kidney Disease Epidemiology Collaboration (CKD- EPI) equation refit without adjustment for race. GFR, EST. >60 >=60 025 12:26 PM [facility] GFR, EST. NONAFRICAN >60 >=60 03/24/2024 12:26 PM [facility] Blood Venipuncture / Unknown 03/24/2024 11:45 AM GEOTECHNICAL OPERATING ENGINEER 03/24/2024 12:04 PM GEOTECHNICAL OPERATING ENGINEER us Silvana Fischer CONVEYOR SYSTEM OPERATOR, ADJUNCT FACULTY MATHEMATICS DEPARTMENT CHEMISTRY ORDERABLES Final Result [facility] [address] [place] [address] * (ABNORMAL) B-Type Natriuretic Peptide (BNP) (03/24/2024 11:45 AM GEOTECHNICAL OPERATING ENGINEER) B TYPE NATRIURETIC PEPTIDE 1,045(H) <100 pg/mL 03/24/2024 12:21 PM GEOTECHNICAL OPERATING ENGINEER [facility] Blood Venipuncture / Unknown 03/24/2024 11:45 AM GEOTECHNICAL OPERATING ENGINEER 03/24/2024 12:04 PM GEOTECHNICAL OPERATING ENGINEER us Silvana Fischer APRN, ADJUNCT FACULTY MATHEMATICS DEPARTMENT CHEMISTRY ORDERABLES Final Result [facility] [address] [place] [address] * Critical Care (03/24/2024 11:26 AM GEOTECHNICAL OPERATING ENGINEER) Narrative Blu Richmond MD - 03/24/2024 11:26 AM GEOTECHNICAL OPERATING ENGINEER Silvana Fischer APRN, CNP ? 03/24/2024 ??1:36 PM Critical Care Performed by: Silvana Fischer APRN, CNP Authorized by: Silvana Fischer APRN, CNP ?? Critical care provider statement: ??Critical care time (minutes): ??40 ??Critical care time was exclusive of: ??Separately billable procedures and treating other patients ??Critical care was necessary to treat or prevent imminent or life-threatening deterioration of the following conditions: Congestive heart failure. ??Critical care was time spent personally by me on the following activities: ??Blood draw for specimens, development of treatment plan with patient or surrogate, discussions with consultants, evaluation of patient's response to treatment, examination of patient, obtaining history from patient or surrogate, ordering and performing treatments and interventions, ordering and review of laboratory studies, ordering and review of radiographic studies, pulse oximetry, re-evaluation of patient's condition and review of old charts ??I assumed direction of critical care for this patient from another provider in my specialty: no ?Care discussed with: admitting provider ?? us Silvana Fischer APRN, ADJUNCT FACULTY MATHEMATICS DEPARTMENT PROCEDURE/MINOR SURGI SYD ORDERABLES Final Result * EKG SCAN (03/24/2024 12:00 AM GEOTECHNICAL OPERATING ENGINEER) Only the most recent of2 resultswithin the time period is included. 03/24/2024 us Provider Scan IMG ECG ORDERABLES Final Result RESULTING AGENCY * CARDIOLOGY CONSULT (03/19/2024 12:00 AM GEOTECHNICAL OPERATING ENGINEER) 03/19/2024 us Provider Scan GENERIC SCAN ORDERS CONSULT Haylie l Result SCAN * ECHOCARDIOGRAM MISCELLANEOUS (03/18/2024 12:00 AM GEOTECHNICAL OPERATING ENGINEER) LV EF(estimated)% 63 RESULTING AGENCY 03/18/2024 us Provider Scan IMG ECHO ORDERABLES Final Result RESULTING AGENCY from Last 3 Months Insurance MEDICARE C AETNA Advance Directives * Full Code (Latest Code Status on File) Date Activated Date Inactivated Comments 03/24/2024 3:48 PM CPR-Full Treat ment: FULL ARREST: Attempt Resuscitation/CPR wit intubation and mechanical ventilation. PRE-ARREST: Use entire range of life support measures to stabilize the patient. Care Teams Physical Geographer Relationship Specialty Start Date End Date Tal Olsen MD [address] [address] PCP - General Internal Medicine 03/24/24
--- OUTSIDE RECORDS SUMMARY | 2024-04-07 02:37 | XMS_ITS | Encounter Summary ---
Author Organization [facility] Address [address] [place] [address] Phone Care Team Providers Care Firer Powerhouse Name Role Phone Tal Olsen MD Primary Care Provider [phone] Encounter Details Date Type Department Care Team (Late st Contact Info) Description 03/30/2024 Results Follow-Up [facility] - Pulmonology & Sleep Medicine [facility] [address] [place] [phone] Faizan Yadav MD [address] [place] [id number] Social History Tobacco Use Types Packs/Day Years Used Date Smoking Tobacco: Former Cigarettes Alcohol Use Standard Drinks/Week Comments Not Currently 0 (1 standard drink = 0.6 oz pur e alcohol) [facility] Utilities Answer Date Recorded In the past 12 months has [employer], gas, oil, or water [employer] threatened to shut off services in your home? Patient declined 03/24/2024 Social Connection and Isolation Panel [NHANES] A nswer Date Recorded In a typical week, how many times do you talk on the phone with family, friends, or neighbors? Patient declined 03/24/2024 How often do you get togethe r with friends or relatives? Patient declined 03/24/2024 How often do you attend voodoo or jewish serv ices? Patient declined 03/24/2024 Do you belong to any clubs o r organizations such as voodoo groups, unions, fraternal or athletic groups, or [...] medical care, and heating? Patient declined 03/24/2024 [facility] Occupat ional Health - Occupational Stress [...] any time in the past 12 m [facility], were you homeless or living in a alf (including now)? 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 Gender Identity Not on file Sexual Orientation Not on file documented as of this encounter Plan of Treatment Upcoming Encounters Date Type Department Care Team (Late st Contact Info) Description 04/10/2024 2:00 PM AUTOMOTIVE SALES PROFESSIONAL Office Visit [facility] - Pulmonology & Sleep Medicine [facility] [address] [place] [address] Faizan Yadav MD [address] [place] [address] documented as of this encounter Visit Diagnoses Not on filedocumented in this encounter Care Teams Firer Powerhouse Relationship Specialty Start Date End Date Tal Olsen MD [address] [place] [address] PCP - General Internal Medicine 03/24/24 documented as of this encounter
--- OUTSIDE RECORDS SUMMARY | 2024-04-07 02:37 | XMS_ITS | Encounter Summary ---
Author Organization [facility] Address [address] [place] [address] Phone Care Team Providers Care Manager Analysis Name Role Phone Tal Olsen MD Primary Care Provider [phone] Reason for Visit * Reason Onset Date Comments Patient Outreach 04/05/2024 PITA 1 Encounter Details Date Type Department Care Team (Late st Contact Info) Description 04/05/2024 Patient Outreach [facility] Contract Administrator Management [address] [place] [address] Xiao Pacheco RN [place] Patient Outreach (PITA 1 ) Social History Tobacco Use Types Packs/Day Years Used Date Smoking Tobacco: Former Cigarettes Alcohol Use Standard Drinks/Week Comments Not Currently 0 (1 standard drink = 0.6 oz pur e alcohol) [facility] Utilities Answer Date Recorded In the past 12 months has [employer], gas, oil, or water company threatened [...] declined 03/24/2024 How often do you attend lutheran or nondenominational serv ices? Patient declined 03/24/2024 Do you belong to any clubs o r organizations such as lutheran groups, unions, fraternal or athletic groups, or [...] medical care, and heating? Patient declined 03/24/2024 [facility] of Occupat ional [facility] - Occupational Stress Questionnaire Answer Date Recorded [...] any time in the past 12 m [facility], were you homeless or living in a residential (including now)? 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 RN left message for patient to call RN back at [phone] ER REPAIRER ELECTRIC * Noreen Heredia RN - 04/05/2024 1:46 PM CST 2nd attempt to reach patient via telephone for transition of care (PITA) 1. No answer. No option to leave voicemail. Mental Tester will send communication to home address on file. ER REPAIRER ELECTRIC documented in this encounter Plan of Treatment Upcoming Encounters Date Type Department Care Team (Late st Contact Info) Description 04/10/2024 2:00 PM DEICER REPAIRER ELECTRIC Office Visit [facility] - Pulmonology & Sleep Medicine [facility] [address] [place] [address] Faizan Yadav MD [address] [place] [address] documented as of this encounter Visit Diagnoses Not on filedocumented in this encounter Care Teams Manager Analysis Relationship Specialty Start Date End Date Tal Olsen MD [address] [place] [address] PCP - General Internal Medicine 03/24/24 documented as of this encounter
--- OUTSIDE RECORDS SUMMARY | 2024-04-07 02:37 | XMS_ITS ---
Author Organization [facility] Address [address] [place] [address] Phone Care Team Providers Care Hand Model Name Role Phone Tal Olsen MD Primary Care Provider [phone] Ambulatory Transitions of Care Status:Closed (Closed) Start date:03/28/2024 End date:04/06/2024 Close reason:Unable to reach patient Related social drivers of health:Social Connections, Alcohol Use, Tobacco Use, Financial Resource Strain, Depression, Stress, Physical Activity, Food Insecurity, Transportation Needs, Housing Stability, Utilities Continued Care and Services Coordination
--- OUTSIDE RECORDS SUMMARY | 2024-04-07 02:37 | XMS_ITS | Clinical Summary ---
Author Organization [facility] Address [facility] [place], [place] [address] [place] [address] Care Team Providers Care Glass Etcher Helper Name Role Phone Unavailable Primary Care Provider Unavailabl e Social History Tobacco Use Types Packs/Day Years Used Date Smoking Tobacco: Never Assessed Sex and Gender Information Value Date Recorded Sex Assigned at Not on file Legal Sex Male 4:20 PM CDT Gender Identity Not on file Sexual Orientation Not on file Plan of Treatment Health Maintenance Due Date Last Done Comments Hepatitis C 1962 DTaP, Tdap and Td Vaccines ( 1 - Tdap) 07/27/1963 Zoster Vaccines (1 of 2) 1994 Pneumococcal Vaccine: 65+ Ye ars (1 of 1 - PCV) 2009 RSV Immunization or 60+ Years (1 - 1-dose 75+ series) 07/27/2019 COVID-19 Vaccine ( - 2023-2 5 season) 2023 Influenza Adult (#1) 2023 Meningococcal Vaccine Aged Out No beena jeff eligible based on patient's age to complete this topic RSV Immunizations Under 20 Months Aged Out No longer eligible based on patient's age to complete this topic
--- OUTSIDE RECORDS SUMMARY | 2024-04-07 02:37 | XMS_ITS | CONTINUITY OF CARE DOCUMENT ---
Author Name millicent ricks Address Unknown Organization [facility] Address [address] [address] [place] [address] Phone [phone] Care Team Providers Care Ironworker Machine Operator Name Role Phone Sonu Goodwin MD Unavailable [phone] Sonu Goodwin MD Unavailable [phone] INSURANCE PROVIDERS Payer name Policy type / Coverage type Fabio red democrat ID AETNA MEDICARE Commercial insurance company 1 [id number]
== END 2024-04-05 14:54 | disposition home or self-care (01) ==
PROVIDERS: PCP Emergency Medicine; Visit Provider Emergency Medicine
DX: E78.5 Hyperlipidemia, unspecified (principal); E11.9 Type 2 diabetes mellitus without complications
CPT/HCPCS: 36415; 80053; 83036

== ENCOUNTER 2024-04-18 12:15 | Outpatient (CLI) | payer MEDICARE, SELFPAY ==
--- OUTSIDE RECORDS SUMMARY | 2024-04-18 12:20 | XMS_ITS | Encounter Summary ---
Author Organization [facility] Address [address] [place] [address] Phone Care Team Providers Care Gage Maker Name Role Phone Tal Olsen MD Primary Care Provider [phone] Faizan Yadav MD Unavailable Encounter Details Date Type Department Care Team (Late st Contact Info) Description 03/30/2024 Results Follow-Up [facility] - Pulmonology & Sleep Medicine [facility] [address] [place] [address] Faizan Yadav MD [address] [place] [address] Social History Tobacco Use Types Packs/Day Years Used Date Smoking Tobacco: Former Cigarettes Alcohol Use Standard Drinks/Week Comments Not Currently 0 (1 standard drink = 0.6 oz pur e alcohol) [facility] Utilities Answer Date Recorded In the past 12 months has [employer], gas, oil, or water [employer] threatened to shut off services in your home? Patient declined 03/24/2024 Social Connection and Isolation Panel [NHANES] A nswer Date Recorded In a typical week, how many times do you talk on the phone with family, friends, or neighbors? Patient declined 03/24/2024 How often do you get togethe r with friends or relatives? Patient declined 03/24/2024 How often do you attend cheondoism or mandaeism serv ices? Patient declined 03/24/2024 Do you belong to any clubs o r organizations such as cheondoism groups, unions, fraternal or athletic groups, or [...] medical care, and heating? Patient declined 03/24/2024 [facility] of Occupat ional [facility] - Occupational Stress Questionnaire Answer Date Recorded [...] any time in the past 12 m [facility], were you homeless or living in a longterm (including now)? 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 Gender Identity Not on file Sexual Orientation Not on file documented as of this encounter Plan of Treatment Upcoming Encounters Date Type Department Care Team (Late st Contact Info) Description 07/13/2024 2:00 PM CDT Office Visit [facility] - Pulmonology & Sleep Medicine [facility] [address] [place] [address] Faizan Yadav MD [address] [place] [address] documented as of this encounter Visit Diagnoses Not on filedocumented in this encounter Care Teams Gage Maker Relationship Specialty Start Date End Date Tal Olsen MD [address] [place] [address] PCP - General Internal Medicine 03/24/24 Faizan Yadav MD [address] [place] [address] Consulting Physician Pulmonary Disease 04/10/24 documented as of this encounter
--- OUTSIDE RECORDS SUMMARY | 2024-04-18 12:20 | XMS_ITS | Clinical Summary ---
Author Organization [facility] Address [address] [place] [address] Phone Care Team Providers Care Demurrage Clerk Name Role Phone Tal Olsen MD Primary Care Provider Faizan Yadav MD Unavailable Allergies Active Allergy Reactions Criticality Noted Date [...] daily. 90 Tablet 1 03/28/19 25 Active Additional Information Patient not taking.Reported on 04/10/2024 ondansetron (ZOFRAN-ODT) 4 MG TABLET DISPERSIBLE Take [...] days. 30 Tablet 03/28/19 25 2024 Active Additional Information Patient not taking.Reported on 04/10/2024 spironolactone (ALDACTONE) 25 MG Tablet Take 0.5 Tablets by mouth daily. 45 Tablet 2 03/28/19 Active atenolol (TENORMIN) 50 MG Tablet Take 50 mg by mouth daily. 04/06/19 Active furosemide (Lasix) 40 MG Tablet Take 40 mg by mouth daily. 2024 Discontinued atenolol (TENORMIN) 50 MG Tablet Take 50 mg by mouth daily. 2024 Discontinued(A lternate therapy) Active Problems Problem Noted Date Diagnosed Date Pulmonary HTN 04/10/2024 Hypomagnesemia 03/28/2024 Chronic atrial fibrillation 03/24/2024 COPD (chronic obstructive pulmonary disease) 12/2024 Hyponatremia 03/24/2024 Congestive heart failure (CHF) Diabetes mellitus Hypertension Resolved Problems Problem Noted Date Diagnosed Date Resolved Date Acute exacerbation of CHF (c ongestive heart failure) 03/24/2024 04/10/2024 Acute on chronic diastolic heart failure 03/24/2024 04/10/2024 Encounters Date Type Department Care Team Description 04/10/2024 2:00 PM SUPERVISOR TRUST ACCOUNTS Office Visit [facility] - Pulmonology & Sleep Medicine - [address] [place] [address] Faizan Yadav MD Other emphysema (HCC) (Primary Dx); Primary hypertension; Pulmonary HTN (HCC) Discharge Disposition: Discharged to home or Selfcare 04/10/2024 Travel 04/05/2024 Patient Outreach [facility] [employer] Management [address] [place] [id number] Xiao Pacheco RN Patient Outreach (PITA 1 ) 03/30/2024 Results Follow-Up [facility] - Pulmonology & Sleep Medicine [facility] [address] [place] [address] Faizan Yadav MD 03/29/2024 Patient Outreach [facility] [employer] [facility] [address] [place] [id number] Nimisha Garcia RN Transition of Care (Post discharge, initial call, CHF ) 03/24/2024 10:56 AM SUPERVISOR TRUST ACCOUNTS - 03/28/2024 1:34 PM SUPERVISOR TRUST ACCOUNTS Hospital Encounter [facility] Med Surg [address] [place] [phone] Silvana Fischer APRN, SUPERINTENDENT [employer] Brayan, Jose Luis Llanes MD [facility] Acute on chronic diastolic heart failure (HCC) Discharge Disposition: Discharged to home or Selfcare 03/24/2024 Travel from Last 3 Months Social History Tobacco Use Types Packs/Day Years Used Date Smoking Tobacco: Former Cigarettes Smokeless Tobacco: Never Tobacco Cessation:Counseling Given: No Alcohol Use Standard Drinks/Week Comments Not Currently 0 (1 standard drink = 0.6 oz pur e alcohol) [facility] Utilities Answer Date Recorded In the past 12 months has [employer], gas, oil, or water [employer] threatened to shut off services in your home? Patient declined 03/24/2024 Social Connection and Isolation Panel [NHANES] A nswer Date Recorded In a typical week, how many times do you talk on the phone with family, friends, or neighbors? Patient declined 03/24/2024 How often do you get togethe r with friends or relatives? Patient declined 03/24/2024 How often do you attend evangelical or pentecostal serv ices? Patient declined 03/24/2024 Do you belong to any clubs o r organizations such as evangelical groups, unions, fraternal or athletic groups, or [...] medical care, and heating? Patient declined 03/[facility]24 [facility]ational [facility] Questionnaire Answer Date Recorded [...] any time in the past 12 m [facility], were you homeless or living in a [place] health care facility (including now)? 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 Sex Male 10:56 AM SUPERVISOR TRUST ACCOUNTS Gender Identity Not on file Sexual Orientation Not on file Last Filed Vital Signs Vital Sign Reading Time Taken Comments Blood Pressure 108/64 04/10/2024 2:07 PM SUPERVISOR [employer] ACCOUNT[employer] Pulse 70 04/10/2024 2:07 PM SUPERVISOR TRUST ACCOUNTS Temperature 36.2 ??C (97.2 ??F) 04/10/2024 2:07 PM CS T Respiratory Rate 16 04/10/2024 2:07 PM SUPERVISOR TRUST ACCOUNTS Oxygen Saturation 91% 04/10/2024 2:07 PM SUPERVISOR TRUST ACCOUNTS Inhaled Oxygen Concentration - - Weight 77.1 kg (169 lb 14.4 oz) 04/10/2024 2:07 PM [employer]VISOR [employer]UST ACCOUNT[employer] Height 172.7 cm (5' 8 ) 04/10/2024 2:07 PM SUPERVISOR [employer]UST ACCOUNTS Body Mass Index 25.83 04/10/2024 2:07 PM SUPERVISOR [employer]UST ACCOUNTS Plan of Treatment Upcoming Encounters Date Type Department Care Team (Late st Contact Info) Description 07/13/2024 2:00 PM CDT Office Visit [facility] Medicine [facility] [address] [place] [address] Faizan Yadav MD [address] [place] [address] Health Maintenance Due Date Last Done Comments Diabetes: Eye Exam 1944 Diabetes: Foot Exam 1944 Diabetes: Hemoglobin A1c 1944 Hepatitis C Virus (HCV) Screening 1945 TdaP Immunization 1944 Pneumococcal Immunization (5 0+ years) (1 of 2 - PCV) 07/27/1963 Zoster Immunization (1 of 2) 1994 Respiratory Syncytial Virus (RSV) Immunization (Adult) (1 - 1-dose 75+ series) 07/27/2019 Influenza Immunization (#1) 2023 SARS-COV-2 Immunization (3 - season) 2023 01/27/2021, 12/20/2020 Diabetes: Nephropathy Screening [...] SINGLE VIEW PORTABLE STAT 03/28/2024 12:46 PM SUPERVISOR TRUST ACCOUNTS US CHEST INCLUDES MEDIASTINUM Routine 03/28/2024 12:16 PM SUPERVISOR TRUST ACCOUNTS PATHOLOGY CYTOLOGY NON-INDUSTRIAL ORGANIZATIONAL PSYCHOLOGIST Routine 03/28/2024 12:07 PM SUPERVISOR TRUST ACCOUNTS FLUID, DIFFERENTIAL Routine 03/28/2024 1 2:07 PM SUPERVISOR TRUST ACCOUNTS BODY FLUID, TOTAL PROTEIN Routine 03/28/2024 12:07 PM SUPERVISOR TRUST ACCOUNTS BODY FLUID, LACTATE DEHYDROGENASE (LD) Routine 03/28/2024 12:07 PM SUPERVISOR TRUST ACCOUNTS BODY FLUID, GLUCOSE Routine 03/28/2024 1 2:07 PM SUPERVISOR TRUST ACCOUNTS BODY FLUID CELL COUNT W/ DIFFERENTIAL Routine 03/28/2024 12:07 PM SUPERVISOR TRUST ACCOUNTS CULTURE, BODY FLUID (MARY) Routine 03/28/2024 12:07 PM SUPERVISOR TRUST ACCOUNTS CULTURE, AEROBIC Routine 03/28/2024 12:0 7 PM SUPERVISOR TRUST ACCOUNTS SMEAR, TB (ACID FAST BACILLI) Routine 03/28/2024 12:07 PM SUPERVISOR TRUST ACCOUNTS SMEAR, GRAM STAIN Routine 03/28/2024 12: 07 PM SUPERVISOR TRUST ACCOUNTS CULTURE, TB (ACID FAST BACILLI) Routine 03/28/2024 12:07 PM SUPERVISOR TRUST ACCOUNTS CULTURE, FUNGUS Routine 03/28/2024 12:07 PM SUPERVISOR TRUST ACCOUNTS POCT GLUCOSE Routine 03/28/2024 11:31 AM SUPERVISOR TRUST ACCOUNTS POCT GLUCOSE Routine 03/28/2024 7:37 AM SUPERVISOR TRUST ACCOUNTS CBC WITH AUTO DIFFERENTIAL Routine 03/28/2024 5:02 AM SUPERVISOR TRUST ACCOUNTS PROTIME (PT) (PROTHROMBIN TIME) Routine 03/28/2024 5:02 AM SUPERVISOR TRUST ACCOUNTS APTT (PTT) Routine 03/28/2024 5:02 AM SUPERVISOR [employer]UST ACCOUNTS COMPLETE BLOOD COUNT (CBC) WITH DIFF Routine 03/28/2024 5:02 AM SUPERVISOR [employer]UST ACCOUNTS BASIC METABOLIC PANEL W/ CALCIUM TOTAL Routine 03/28/2024 5:02 AM SUPERVISOR [employer]UST ACCOUNTS RHYTHM STRIP 03/28/2024 12:00 AM SUPERVISOR [employer]UST ACCOUNTS RHYTHM STRIP 03/28/2024 12:00 AM SUPERVISOR TRUST ACCOUNTS POCT GLUCOSE Routine 03/27/2024 7:47 PM SUPERVISOR TRUST ACCOUNTS POCT GLUCOSE Routine 03/27/2024 4:22 PM SUPERVISOR TRUST ACCOUNTS POCT GLUCOSE Routine 03/27/2024 12:05 PM SUPERVISOR TRUST ACCOUNTS POCT GLUCOSE Routine 03/27/2024 7:09 AM SUPERVISOR TRUST ACCOUNTS CBC WITH AUTO DIFFERENTIAL Routine 03/27/2024 4:37 AM SUPERVISOR TRUST ACCOUNTS COMPLETE BLOOD COUNT (CBC) WITH DIFF Routine 03/27/2024 4:37 AM SUPERVISOR TRUST ACCOUNTS BASIC METABOLIC PANEL W/ CALCIUM TOTAL Routine 03/27/2024 4:37 AM SUPERVISOR TRUST ACCOUNTS RHYTHM STRIP 03/27/2024 12:00 AM SUPERVISOR TRUST ACCOUNTS RHYTHM STRIP 03/27/2024 12:00 AM SUPERVISOR TRUST ACCOUNTS RHYTHM STRIP 03/27/2024 12:00 AM SUPERVISOR TRUST ACCOUNTS POCT GLUCOSE Routine 03/26/2024 7:34 PM SUPERVISOR TRUST ACCOUNTS POCT GLUCOSE Routine 03/26/2024 4:26 PM SUPERVISOR TRUST ACCOUNTS POCT GLUCOSE Routine 03/26/2024 11:50 AM SUPERVISOR TRUST ACCOUNTS POCT GLUCOSE Routine 03/26/2024 8:21 AM SUPERVISOR TRUST ACCOUNTS CBC WITH AUTO DIFFERENTIAL Routine 03/26/2024 4:56 AM SUPERVISOR TRUST ACCOUNTS COMPLETE BLOOD COUNT (CBC) WITH DIFF Routine 03/26/2024 4:56 AM SUPERVISOR TRUST ACCOUNTS BASIC METABOLIC PANEL W/ CALCIUM TOTAL Routine 03/26/2024 4:56 AM SUPERVISOR TRUST ACCOUNTS RHYTHM STRIP 03/26/2024 12:00 AM SUPERVISOR TRUST ACCOUNTS RHYTHM STRIP 03/26/2024 12:00 AM SUPERVISOR TRUST ACCOUNTS POCT GLUCOSE Routine 03/25/2024 9:50 PM SUPERVISOR TRUST ACCOUNTS POCT GLUCOSE Routine 03/25/2024 4:15 PM SUPERVISOR TRUST ACCOUNTS BASIC METABOLIC PANEL W/ CALCIUM TOTAL STAT 03/25/2024 3:12 PM SUPERVISOR TRUST ACCOUNTS POCT GLUCOSE Routine 03/25/2024 11:06 AM SUPERVISOR TRUST ACCOUNTS AEROSOL NEBULIZER-INITIAL Routine 03/25/2024 9:43 AM SUPERVISOR TRUST ACCOUNTS POCT GLUCOSE Routine 03/25/2024 7:31 AM SUPERVISOR TRUST ACCOUNTS LAVENDER TOP TUBE Routine 03/25/2024 4:4 0 AM SUPERVISOR TRUST ACCOUNTS EXTRA TUBES Routine 03/25/2024 4:40 AM SUPERVISOR TRUST ACCOUNTS BASIC METABOLIC PANEL W/ CALCIUM TOTAL STAT 03/25/2024 4:40 AM SUPERVISOR TRUST ACCOUNTS MAGNESIUM (MG) Routine 03/25/2024 4:40 AM SUPERVISOR TRUST ACCOUNTS RHYTHM STRIP 03/25/2024 12:00 AM SUPERVISOR TRUST ACCOUNTS RHYTHM STRIP 03/25/2024 12:00 AM SUPERVISOR TRUST ACCOUNTS POCT GLUCOSE Routine 03/24/2024 11:06 PM SUPERVISOR TRUST ACCOUNTS PT EVALUATE AND TREAT Routine 03/24/2024 3:48 PM SUPERVISOR TRUST ACCOUNTS URINALYSIS REFLEX IF INDICATED BY ABNORMAL RESULTS STAT 03/24/2024 1:49 PM SUPERVISOR TRUST ACCOUNTS CULTURE, URINE STAT 03/24/2024 1:49 PM SUPERVISOR TRUST ACCOUNTS TROPONIN I, HIGH SENSITIVITY (HSTRP) STAT 03/24/2024 1:41 PM SUPERVISOR TRUST ACCOUNTS XR CHEST SINGLE VIEW STAT 03/24/2024 12:20 PM SUPERVISOR TRUST ACCOUNTS EKG 12 LEAD STAT 03/24/2024 11:53 AM SUPERVISOR TRUST ACCOUNTS CBC WITH AUTO DIFFERENTIAL STAT 03/24/2024 11:45 AM SUPERVISOR TRUST ACCOUNTS APTT (PTT) STAT 03/24/2024 11:45 AM SUPERVISOR TRUST ACCOUNTS PROTIME (PT) (PROTHROMBIN TIME) STAT 03/24/2024 11:45 AM SUPERVISOR TRUST ACCOUNTS TROPONIN I, HIGH SENSITIVITY (HSTRP) STAT 03/24/2024 11:45 AM SUPERVISOR TRUST ACCOUNTS B-TYPE NATRIURETIC PEPTIDE (BNP) STAT 03/24/2024 11:45 AM SUPERVISOR TRUST ACCOUNTS CMP (COMPREHENSIVE METABOLIC PANEL) STAT 03/24/2024 11:45 AM SUPERVISOR TRUST ACCOUNTS COMPLETE BLOOD COUNT (CBC) WITH DIFF STAT 03/24/2024 11:45 AM SUPERVISOR TRUST ACCOUNTS CRITICAL CARE Routine 03/24/2024 11:26 AM SUPERVISOR TRUST ACCOUNTS RHYTHM STRIP 03/24/2024 12:00 AM SUPERVISOR TRUST ACCOUNTS RHYTHM STRIP 03/24/2024 12:00 AM SUPERVISOR [employer]UST ACCOUNTS EKG SCAN 03/24/2024 12:00 AM SUPERVISOR [employer]UST ACC[employer]S CARDIOLOGY CONSULT 03/19/2024 12 :00 AM SUPERVISOR TRUST ACCOUNTS ECHO GENERIC 03/18/2024 12:00 AM SUPERVISOR TRUST ACCOUNTS EKG SCAN 03/17/2024 12:00 AM SUPERVISOR TRUST ACCOUNTS from Last 3 Months Results * XR CHEST SINGLE VIEW PORTABLE (03/28/2024 12:46 PM SUPERVISOR TRUST ACCOUNTS) Anatomical Region Laterality Modality Chest N/A Digital Radiogra phy 03/28/2024 12:5 4 PM SUPERVISOR TRUST ACCOUNTS Impressions 03/28/2024 12:57 PM SUPERVISOR TRUST ACCOUNTS IMPRESSION: Resolution previous right effusion and bibasilar consolidations. Persistent though improving linear densities left base. Narrative 03/28/2024 12:57 PM SUPERVISOR TRUST ACCOUNTS EXAM DESCRIPTION: ?? XR CHEST SINGLE VIEW [...] Electronically signed by ??Mitch Barajas M.D. RB: MILTON D: ??03/28/2024 12:54 PM T: ??03/28/2024 12:54 PM Report ID: [id number] Reading Location: ??[id number] Procedure Note Mitch Barajas MD - 03/28/2024 [...] Mitch Barajas M.D. RB: RB Report ID: [id number] Reading Location: [id number] IMPRESSION: Resolution previous right effusion and bibasilar consolidations. Persistent though improving linear densities left base. us Faizan WARREN DIAGNOSTIC ORDERABLES Final Result * US CHEST INCLUDES MEDIASTINUM (03/28/2024 12:16 PM SUPERVISOR TRUST ACCOUNTS) us Faizan WARREN US ORDERABLES Final Result * Pathology Cytology Non-INDUSTRIAL ORGANIZATIONAL PSYCHOLOGIST (03/28/2024 12:07 PM SUPERVISOR TRUST ACCOUNTS) Case Report Medical Cytology Report ? Case: [id number] ? Authorizing Provider: ??Faizan Yadav MD ?Collected: ? 03/28/2024 12:07 PM ? Ordering Location: ? [facility] ? Received: ?03/29/2024 08:47 AM ? [facility] ? Med Surg 2 South ? Pathologist: ? Kalli Rao MD PhD ? Specimen: ?Pleural Fluid, Right ? 03/30/2024 9:25 AM [facility] FINAL DIAGNOSIS Pleural fluid, right, cytologic evaluation: - Adequate for evaluation - Benign - Mesothelial cells, histiocytes, and lymphocytes 03/30/2024 9:25 AM [facility] at 0925 SUPERVISOR TRUST ACCOUNTS Gross Description A. Specimen presents in two [...] hours, 46 minutes. KS/sb 03/30/2024 9:25 AM [facility] Microscopic Description Microscopic examination was performed which supports the final diagnosis. All control tissues stained appropriately. 03/30/2024 9:25 AM [facility] Pre-Operative Diagnosis Shortness of breath 03/30/2024 9:25 AM [facility] Other (Pleural Fluid, Right) Non-Phlebotomy Collection / Unknown 03/28/2024 12:07 PM SUPERVISOR [employer]UST ACCOUNTS 03/29/2024 8:47 AM SUPERVISOR TRUST ACCOUNTS us Faizan Yadav MD PATHOLOGY/CYTOLOGY ORDERABLES Fi nal Result [facility] [address] [place] [address] * Smear, TB - Thoracentesis Fluid (03/28/2024 12:07 PM SUPERVISOR TRUST ACCOUNTS) FLUORESCENT SMEAR NO FLUORESCENT BACILLI SEEN NO FLUORESCENT BACILLI SEEN 03/29/2024 1:32 PM SUPERVISOR TRUST ACCOUNTS [facility] Other SPECIMEN FROM PLEURA OBTAINED BY THORACENTESIS / Unknown Non-Phlebotomy Collection / Unknown 03/28/2024 12:07 PM SUPERVISOR TRUST ACCOUNTS 03/28/2024 12:15 PM SUPERVISOR TRUST ACCOUNTS us Faizan Yadav MD MICROBIOLOGY - GENERAL ORDERABLE S Final Result Performing Organization Address City/[facility]/ZIP Co de Phone Number [facility] [address] [place] [address], [place] * Smear, Gram Stain (03/28/2024 12:07 PM SUPERVISOR TRUST ACCOUNTS) GRAM STAIN No Organisms seen 03/28/2024 11:31 PM SUPERVISOR TRUST ACCOUNTS [facility] Other SPECIMEN FROM PLEURA OBTAINED BY THORACENTESIS / Unknown Non-Phlebotomy Collection / Unknown 03/28/2024 12:07 PM SU[employer]VISOR [employer]UST ACCOUNTS 03/28/2024 12:15 PM SUPERVISOR TRUST ACCOUNTS us Faizan Yadav MD MICROBIOLOGY - GENERAL ORDERABLE S Final Result Performing Organization Address City/[facility]/ZIP Co de Phone Number [facility] [address] [place] [address], [place] * Body Fluid, Total Protein (03/28/2024 12:07 PM SUPERVISOR [employer] ACCOUNT[employer]) PROTEIN BODY FLUID 2.9 g/dL [facility] LOPEZ TRACK 03/28/2024 10:47 PM SUPERVISOR TRUST ACCOUNTS [facility] Comment:A reference range fo r this test has not been established by the [facility] laboratory system as a well-accepted reference range [...] history and physical exam. Consultation with the pediatrician/medical doctor of the laboratory should be considered, as needed. Although the test has not been approved by the U.S. Food and Drug Administration, its approval is not required for clinical utility. This test should not be used alone for clinical diagnoses or patient treatment. FLUID SOURCE Pleural, right 03/28/2024 10:47 PM SUPERVISOR TRUST ACCOUNTS [facility] Other SPECIMEN FROM PLEURA OBTAINED BY THORACENTESIS / Unknown Non-Phlebotomy Collection / Unknown 03/28/2024 12:07 PM SUPERVISOR [employer]UST ACCOUNTS 03/28/2024 12:15 PM SUPERVISOR TRUST ACCOUNTS Faizan Yadav MD BODY FLUIDS & STOOLS ORDERABLES Final Result [facility] [address] [place] [address], [facility] [address] [place] [address] * Fluid, Differential (03/28/2024 12:07 PM SUPERVISOR [employer]) FLUID NEUTROPHILS % 6 % 03/28/2024 3:52 PM SUPERVISOR TRUST ACCOUNTS [facility] FLUID LYMPH % BKR 88 % 025 3:52 PM SUPERVISOR TRUST ACCOUNTS [facility] FLUID MONO % 3 % 03/28/2024 3:52 PM SUPERVISOR TRUST ACCOUNTS [facility] FLUID EOSINOPHILS % BKR 0 % 03/28/2024 3:52 PM SUPERVISOR TRUST ACCOUNTS [facility] FLUID MACROPHAGE % 0 % 03/28/2024 3:52 PM SUPERVISOR TRUST ACCOUNTS [facility] FLUID PLASMA CELL % 0 % 03/28/2024 3:52 PM SUPERVISOR TRUST ACCOUNTS [facility] FLUID LINING CELL % 3 % 03/28/2024 3:52 PM SUPERVISOR TRUST ACCOUNTS [facility] FLUID OTHER CELL % 0 % 03/28/2024 3:52 PM SUPERVISOR TRUST ACCOUNTS [facility] TOTAL COUNT BODY FLUID DIFFERENTIAL BKR 100 03/28/2024 3:52 PM SUPERVISOR TRUST ACCOUNTS [facility] FLUID LARGE MONO % BKR 0 % 03/28/2024 3:52 PM SUPERVISOR TRUST ACCOUNTS [facility] FLUID TYPE Pleural, right 03/28/2024 3:52 PM SUPERVISOR TRUST ACCOUNTS [facility] Other SPECIMEN FROM PLEURA OBTAINED BY THORACENTESIS / Unknown Non-Phlebotomy Collection / Unknown 03/28/2024 12:07 PM SUPERVISOR TRUST ACCOUNTS 03/28/2024 12:15 PM SUPERVISOR [employer]UST ACCOUNTS Faizan Yadav MD BODY FLUIDS & STOOLS ORDERABLES Final Result [facility] [address] [place] [address] * Body Fluid Cell Count w/ Differential (03/28/2024 12:07 PM SUPERVISOR [employer] ACC[employer]) FLUID TYPE Pleural, right 03/28/2024 3:52 PM SUPERVISOR TRUST ACCOUNTS [facility] CLARITY Slightly Cloudy 03/28/2024 3:52 PM SUPERVISOR TRUST ACCOUNTS [facility] COLOR Yellow 03/28/2024 3:52 PM SUPERVISOR TRUST ACCOUNTS [facility] VOLUME 1,115.0 mLs 03/28/2024 3:52 PM SUPERVISOR TRUST ACCOUNTS [facility] FLUID RBC COUNT <1,000 /mm(3) 03/28/2024 3:52 PM SUPERVISOR TRUST ACCOUNTS [facility] FLUID, TOTAL NUCLEATED CELLS 758 /mm(3) 03/28/2024 3:52 PM SUPERVISOR TRUST ACCOUNTS [facility] Other SPECIMEN FROM PLEURA OBTAINED BY THORACENTESIS / Unknown Non-Phlebotomy Collection / Unknown 03/28/2024 12:07 PM SUPERVISOR TRUST ACCOUNTS 03/28/2024 12:15 PM SUPERVISOR TRUST ACCOUNTS Narrative [facility] - 03/28/2024 3:52 PM [employer]VISOR [employer]UST [employer]OUNTS The reference range has not been established for this body fluid. The test result must be integrated into the clinical context for interpretation us Faizan Yadav MD BODY FLUIDS & STOOLS ORDERABLES Final Result [facility] [address] [place] [address] * Culture, Body Fluid (MARY) (03/28/2024 12:07 PM SUPER[employer]OR [employer]) CULTURE RESULTS STREPTOCOCCUS MITIS OR STREPTOCOCCUS ORALIS 03/30/2024 8:55 PM SUPERVISOR TRUST ACCOUNTS [facility] Comment:DRUG OF CHOICE IS AM PICILLIN OR PENICILLIN GRAM STAIN 03/30/2024 8:55 PM [employer]PERVISOR [employer]UST ACCOUNTS [facility] Comment:Culture positive aft er 15 hours and 42 mins Culture (Sterile Body Fluid) Non-Phlebotomy Collection / Unknown 03/28/2024 12:07 PM [employer]OR [employer]UST ACCOUNTS 03/28/2024 9:43 PM SUPERVISOR [employer]UST ACCOUNTS Faizan Yadav MD MICROBIOLOGY - GENERAL ORDERABLE S Final Result Performing Organization Address [facility] Co de Phone Number [facility] [address] [place] [address], [place] * CULTURE, AEROBIC (03/28/2024 12:07 PM SUPERVISOR [employer]S) CULTURE RESULTS No growth final 04/01/2024 6:46 AM [employer]PERVISOR [employer]UST ACCOUNTS [facility] Culture (Sterile Body Fluid) Non-Phlebotomy Collection / Unknown 03/28/2024 12:07 PM [employer]OR [employer] ACCOUNTS 03/28/2024 12:15 PM SUPERVISOR TRUST ACCOUNTS us Faizan Yadav MD MICROBIOLOGY - GENERAL ORDERABLE S Final Result Performing Organization Address City/[facility]/ZIP Co de Phone Number [facility] [address] [place] [address], [place] * Body Fluid, Lactate Dehydrogenase (LD) (03/28/2024 12:07 PM [employer]) FLUID SOURCE Pleural, right 03/28/2024 9:59 PM SUPERVISOR TRUST ACCOUNTS [facility] FLUID LDH 101 U/L 03/28/2024 9:59 PM SUPERVISOR [employer]UST ACCOUNTS [facility] Comment:A reference range fo r this test has not been established by the [facility] laboratory system as a well-accepted reference range [...] history and physical exam. Consultation with the pediatrician/medical doctor of the laboratory should be considered, as needed. Although the test has not been approved by the U.S. Food and Drug Administration, its approval is not required for clinical utility. This test should not be used alone for clinical diagnoses or patient treatment. Other SPECIMEN FROM PLEURA OBTAINED BY THORACENTESIS / Unknown Non-Phlebotomy Collection / Unknown 03/28/2024 12:07 PM [employer] ACCOUNTS 03/28/2024 12:15 PM [employer]PERVISOR [employer]UST ACCOUNTS Faizan Yadav MD BODY FLUIDS & STOOLS ORDERABLES Final Result [facility] [address] [place] [address], [facility] [address] [place] [address] * Body Fluid, Glucose (03/28/2024 12:07 PM [employer]) FLUID SOURCE Pleural, right 03/28/2024 9:59 PM SUPERVISOR TRUST ACCOUNTS [facility] GLUCOSE BODY FLUID 137 mg/dL 03/28/2024 9:59 PM SUPERVISOR [employer]UST ACCOUNTS [facility] Comment:A reference range fo r this test has not been established by the [facility] laboratory system as a well-accepted reference range [...] history and physical exam. Consultation with the pediatrician/medical doctor of the laboratory should be considered, as needed. Although the test has not been approved by the U.S. Food and Drug Administration, its approval is not required for clinical utility. This test should not be used alone for clinical diagnoses or patient treatment. Other SPECIMEN FROM PLEURA OBTAINED BY THORACENTESIS / Unknown Non-Phlebotomy Collection / Unknown 03/28/2024 12:07 PM [employer]OR [employer] ACCOUNTS 03/28/2024 12:15 PM SUPERVISOR TRUST ACCOUNTS Faizan Yadav MD BODY FLUIDS & STOOLS ORDERABLES Final Result Performing Organization Address City/[facility]/ZIP Co de Phone Number [facility] [address] [place] [address], [facility] [address] [place] [address] * (ABNORMAL) POCT Glucose (03/28/2024 11:31 AM [employer]) Only the most recent of15 resultswithin the time period is included. GLUCOSE,BEDSID E POCT 146(H) 70 - 99 mg/dL 03/28/2024 11:41 AM [employer]OR [employer] ACCOUNTS [facility] Blood 03/28/2024 11:3 1 AM [employer]OR [employer] ACCOUNTS 03/28/2024 11:41 AM [employer]PER[employer]OR [employer]UST ACCOUNTS None Provider POINT OF CARE TESTING Final Resu lt Performing Organization Address [facility] Co de Phone Number [facility] [address] [place] [address] * (ABNORMAL) CBC with Auto Differential (03/28/2024 5:02 AM [employer]) Only the most recent of4 resultswithin the time period is included. WBC 4.48 4.00 - 12.00 10(3)/mcL 03/28/2024 6:35 AM [employer]OR [employer] ACCOUNTS [facility] RBC 4.22(L) 4.40 - 5.80 10(6)/mcL 03/28/2024 6:35 AM [employer]OR [employer] ACCOUNTS [facility] HEMOGLOBIN (HGB) 11.4(L) 13.0 - 16.5 g/dL 03/28/2024 6:35 AM [facility] HEMATOCRIT (HCT) 36.6(L) 38.0 - 50.0 % 03/28/2024 6:35 AM [facility] MCV 86.7 82.0 - 96.0 fL 03/28/2024 6:35 AM [facility] MCH 27.0 26.0 - 32.0 pg 03/28/2024 6:35 AM [facility] MCHC 31.1 31.0 - 36.0 g/dL 03/28/2024 6:35 AM [facility] PLATELET COUNT 137(L) 140 - 440 10(3)/mcL 03/28/2024 6:35 AM [facility] RDW 18.5(H) 11.8 - 15.5 % 03/28/2024 6:35 AM [facility] MPV 9.4 8.0 - 12.6 fL 03/28/2024 6:35 AM [facility] NEUTROPHILS 65.4 40.0 - 68.0 % 03/28/2024 6:35 AM [facility] LYMPHOCYTES 22.8 19.0 - 49.0 % 03/28/2024 6:35 AM [facility] MONOCYTES 10.7 3.0 - 13.0 % 03/28/2024 6:35 AM [facility] EOSINOPHILS 0.4 0.0 - 8.0 % 03/28/2024 6:35 AM [facility] BASOPHILS 0.7 0.0 - 1.0 % 03/28/2024 6:35 AM [facility] ABSOLUTE NEUTROPHILS 2.93 1.40 - 5.30 10(3)/mcL 03/28/2024 6:35 AM [facility] ABSOLUTE LYMPHOCYTES 1.02 0.90 - 3.30 10(3)/mcL 03/28/2024 6:35 AM [facility] ABSOLUTE MONOCYTES 0.48 0.10 - 0.90 10(3)/mcL 03/28/2024 6:35 AM [employer] [facility] ABSOLUTE EOSINOPHIL 0.02 0.00 - 0.50 10(3)/mcL 03/28/2024 6:35 AM [employer] [facility] ABSOLUTE BASOPHILS 0.03 0.00 - 0.10 10(3)/mcL 03/28/2024 6:35 AM [employer] [facility] NRBC PER 100 WBC 0 03/28/19 6:35 AM [employer] [facility] Blood Venipuncture / Unknown 03/28/2024 5:02 AM [employer] 03/28/2024 6:17 AM [employer] us Mere Bowen APRN, [employer] HEMATOLOGY ORDERABLES Final Result Performing Organization Address [facility] de Phone Number [facility] [place] [address] * APTT (PTT) (03/28/2024 5:02 AM [employer]) Only the most recent of2 resultswithin the time period is included. PTT 34 24 - 36 sec 03/28/2024 6:40 AM [employer] [facility] Blood Venipuncture / Unknown 03/28/2024 5:02 AM [employer] 03/28/2024 6:17 AM [employer] Narrative [facility] - 03/28/2024 6:40 AM [employer] Therapeutic range for unfractionated heparin at 0.3-0.7 U/mL is an aPTT value in the range of 71-100 seconds. Critical value for the PTT test is >= 122 seconds. us Silvia Pimentel APRN, [employer] HEMATOLOGY ORDERABLES Fin al Result Performing Organization Address [facility] Co de Phone Number [facility] [place] [address] * (ABNORMAL) PROTIME (PT) (PROTHROMBIN TIME) (03/28/2024 5:02 AM [employer]) Only the most recent of2 resultswithin the time period is included. Pathologist [facility] PROTIME-PATIENT 17.0(H) 11.6 - 14.8 sec 03/28/2024 6:40 AM [employer] [facility] INR 1.4(H) 0.9 - 1.2 03/28/2024 6:40 AM [facility] Comment: Therapeutic Ranges INR = 2.0-3.0: Venous thromb, atrial fib, pul embolism, tissue heart valve, ami. INR = 2.5-3.5: Mechanical heart valve Critical value for INR is >/= 4.5 Blood Venipuncture / Unknown 03/28/2024 5:02 AM [employer] 03/28/2024 6:17 AM [employer] us Silvia Pimentel HEEL SHAVER, SUPER[employer] HEMATOLOGY ORDERABLES Fin al Result [facility] [place] [address] * (ABNORMAL) BMP with Ca, Total (03/28/2024 5:02 AM [employer]) Only the most recent of5 resultswithin the time period is included. Pathologist [facility] SODIUM 138 136 - 145 mmol/L 03/28/2024 6:50 AM [facility] POTASSIUM 3.6 3.5 - 5.1 mmol/L 03/28/2024 6:50 AM [facility] CHLORIDE 89(L) 98 - 107 mmol/L 03/28/2024 6:50 AM [facility] CO2, VENOUS 40(H) 22 - 30 mmol/L 03/28/2024 6:50 AM [facility] ANION GAP 12.6 <18.0 mmol/L 03/28/2024 6:50 AM [facility] GLUCOSE 82 70 - 99 mg/dL 03/28/2024 6:50 AM [facility] BUN 12 8 - 26 mg/dL 03/28/2024 6:50 AM [employer] [facility] CREATININE, BLOOD 0.74 0.70 - 1.30 mg/dL 03/28/2024 6:50 AM [employer] [facility] BUN/CREATININE RATIO 16 12 - 20 ratio 03/28/2024 6:50 AM [employer] [facility] CALCIUM 9.1 8.7 - 10.5 mg/dL 03/28/2024 6:50 AM [employer] [facility] GFR, ESTIMATED >60 >=60 03/28/2024 6:50 AM [employer] [facility] Comment: Creatinine Clearance is the preferred criteria for selecting drug dose adjustments in renally impaired patients. ??The GFR is provided as additional pertinent clinical information. GFR is reported in mL/min/1.73 sq m. Calculation based on the Chronic Kidney Disease Epidemiology Collaboration (CKD- EPI) equation refit without adjustment for race. GFR, EST. >60 >=60 025 6:50 AM [employer] [facility] GFR, EST. NONAFRICAN >60 >=60 03/28/2024 6:50 AM [employer] [facility] Blood Venipuncture / Unknown 03/28/2024 5:02 AM [employer] 03/28/2024 6:16 AM [employer] us Mere Bowen HEEL SHAVER, [employer]PER[employer] CHEMISTRY ORDERABLES Final Result Performing Organization Address City/[facility]/ZIP Co de Phone Number [facility] [place] [address] * RHYTHM STRIP (03/28/2024 12:00 AM [employer]) Only the most recent of11 resultswithin the time period is included. 03/28/2024 us Provider Scan IMG ECG ORDERABLES Final Result RESULTING AGENCY * Lavender Top Tube (03/25/2024 4:40 AM [employer]) Blood No Phlebotomy Charged / Unknown 03/25/2024 4:40 AM [employer] 03/25/2024 5:34 AM [employer] Jose Luis Schmidt MD HEMATOLOGY ORDERABLES Fi nal Result Performing Organization Address City/[facility]/ZIP Co de Phone Number [facility] [place] [address] * (ABNORMAL) Magnesium (Mg) (03/25/2024 4:40 AM [employer]) Pathologist [facility] MAGNESIUM 1.4(L) 1.6 - 2.6 mg/dL 03/25/2024 5:54 AM [employer] [facility] Blood Venipuncture / Unknown 03/25/2024 4:40 AM [employer] 03/25/2024 5:25 AM [employer] Jose Luis Schmidt MD CHEMISTRY ORDERABLES Fin al Result Performing Organization Address [facility] de Phone Number [facility] [place] [address] * (ABNORMAL) URINALYSIS REFLEX IF INDICATED BY ABNORMAL RESULTS (03/24/2024 1:49 PM [employer]) [facility] SPECIFIC GRAVITY 1.005 1.003 - 1.030 03/24/2024 3:17 PM [employer] [facility] URINE PH 7.0 5.0 - 9.0 03/24/2024 3:17 PM [employer] [facility] WBC ESTERASE 25 /ul(A) Negative 03/24/2024 3:17 PM [employer] [facility] NITRITE Negative Negative 03/24/2024 3:17 PM [employer] [facility] PROTEIN, RANDOM URINE Negative Negative 03/24/2024 3:17 PM [employer] [facility] URINE GLUCOSE, QUAL Negative Negative 03/24/2024 3:17 PM [employer] [facility] URINE KETONES Negative Negative 03/24/2024 3:17 PM [employer] [facility] UROBILINOGEN Normal Normal mg/dL 03/24/2024 3:17 PM [employer] [facility] URINE BLOOD 50 /uL(A) Negative breezy/ul 03/24/2024 3:17 PM [employer] [facility] URINALYSIS COLOR Pale yellow 025 3:17 PM [employer] [facility] URINALYSIS CLARITY Clear 03/24/2024 3:17 PM [employer] [facility] WBC (Urine) 11-20(A) Negative, 0-5 /hpf 03/24/2024 3:17 PM [employer] [facility] URINE RBC'S 11-20(A) Negative, 0-2 /hpf 03/24/2024 3:17 PM [employer] [facility] EPITHELIAL CELLS Occasional /lpf 03/24/19 3:17 PM [employer] [facility] BACTERIA, URINE Few(A) Negative /hpf 03/24/2024 3:17 PM [employer] [facility] Urine URINE SPECIMEN COLLECTION, CLEAN CATCH / Unknown Non-Phlebotomy Collection / Unknown 03/24/2024 1:49 PM [employer] 03/24/2024 2:38 PM [employer] us Silvana Fischer HEEL SHAVER, [employer] URINE ORDERABLES Haylie l Result [facility] [address] [place] [address] * Culture, Urine (03/24/2024 1:49 PM [employer]) CULTURE RESULTS PSEUDOMONAS AERUGINOSA 03/27/2024 8:15 PM [employer] [facility] CULTURE RESULTS GRAM-NEGATIVE BACILLUS 03/27/2024 8:15 PM [employer] [facility] Comment:SENSITIVITY NOT PERF ORMED CULTURE RESULTS ENTEROCOCCUS FAECALIS 03/27/2024 8:15 PM [employer] [facility] Comment:SENSITIVITY NOT PERF ORMED Urine URINE SPECIMEN COLLECTION, CLEAN CATCH / Unknown Non-Phlebotomy Collection / Unknown 03/24/2024 1:49 PM [employer] 03/24/2024 2:38 PM [employer] Narrative [facility] - 03/27/2024 8:15 PM [employer] Susceptibility not performed on enterococcus species. ??Due to high achievable concentrations in urine, Ampicillin is the drug of choice for treating infections limited to the lower urinary tract (regardless of Vancomycin susceptibility). ??For allergic patients, Nitrofurantoin or a quinolone may be substituted. Organism Antibiotic Method Susceptibility Pseudomonas aeruginosa Cefepime [facility] IIB 8 mcg/ml: Susceptible Pseudomonas aeruginosa Gentamicin [facility] IIB Resistant Pseudomonas aeruginosa Levofloxacin [facility] IIB 4 mcg/ml: Resistant Pseudomonas aeruginosa Meropenem [facility] IIB <=0.25 mcg/ml: Susceptible Pseudomonas aeruginosa Piperacillin/Tazobactam [facility] II Comment:Results to niharika garces Pseudomonas aeruginosa Tobramycin [facility] IIB <=1 mcg/ml: Susceptible Pseudomonas aeruginosa Piperacillin/Tazobactam [facility] QUESADA 23 mm: Susceptible us Silvana Fischer APRN, [employer] MICROBIOLOGY - GENERA L ORDERABLES Final Result [facility] [address] [place] [address], * TROPONIN I, HIGH SENSITIVITY (HSTRP) (03/24/2024 1:41 PM [employer]) Only the most recent of2 resultswithin the time period is included. TROPONIN I, HIGH SENSITIVITY- LOPEZ 7 <=35 ng/L 03/24/2024 2:27 PM [employer] [facility] Comment: High-sensitivity troponin I results are reported in ng/L making the result appear to be 1,000 times higher than the contemporary troponin I value which is reported in ng/ml. Results from [facility]. Blood Venipuncture / Unknown 03/24/2024 1:41 PM [employer] 03/24/2024 1:58 PM [employer] us Silvana Fischer APRN, [employer] CHEMISTRY ORDERABLES Final Result Performing Organization Address City/[facility]/ZIP Co de Phone Number [facility] [place] [address] * XR CHEST SINGLE VIEW (03/24/2024 12:20 PM [employer]) Anatomical Region Laterality Modality Chest N/A Digital Radiogra phy 03/24/2024 12:2 3 PM [employer] Impressions 03/24/2024 12:25 PM [employer] IMPRESSION: Concern for vascular congestion and edema versus peribronchial inflammation. Moderately large right-sided effusion with adjacent atelectasis and or infiltrate. Narrative 03/24/2024 12:25 PM [employer] EXAM DESCRIPTION: ?? XR CHEST SINGLE VIEW [...] PM T: ??03/24/2024 12:23 PM Report ID: [id number] Reading Location: ??[id number] Procedure Note Mitch Barajas MD - 03/24/2024 [...] Mitch Barajas M.D. RB: RB Report ID: [id number] Reading Location: [id number] IMPRESSION: Concern for vascular congestion and edema versus peribronchial inflammation. Moderately large right-sided effusion with adjacent atelectasis and or infiltrate. Silvana Fischer APRN, JIGNESH IMG DIAGNOSTIC ORDERA BLES Final Result * EKG 12 LEAD (03/24/2024 11:53 AM [employer]) Ventricular Rate 65 BPM EXTERNAL EKG QRS Duration 98 ms EXTERNAL EKG Q-T Duration 388 ms EXTERNAL EKG QTC CALCULATION 403 ms EXTERNAL EKG R [place] -26 degrees EXTERNAL EKG T [place] 74 degrees EXTERNAL EKG 03/24/2024 11:5 3 AM [employer] Impressions EXTERNAL EKG - 03/25/2024 4:05 PM [employer] Atrial fibrillation Nonspecific T wave abnormality Abnormal ECG No previous ECGs available Confirmed by Miles Garber ([id number]) on 03/25/2024 4:04:59 PM Narrative Procedure Note Miles Gabrer MD - 03/25/2024 IMPRESSION: Atrial fibrillation Nonspecific T wave abnormality Abnormal ECG No previous ECGs available Confirmed by Miles Garber ([id number]) on 03/25/2024 4:04:59 PM Silvana Fischer APRN, JIGNESH IMG ECG ORDERABLES Fi nal Result EXTERNAL EKG * (ABNORMAL) Comprehensive Metabolic Panel (Cmp) [id number] (03/24/2024 11:45 AM [employer]) SODIUM 129(L) 136 - 145 mmol/L 03/24/2024 12:26 PM [employer] [facility] POTASSIUM 4.1 3.5 - 5.1 mmol/L 03/24/2024 12:26 PM [employer] [facility] CHLORIDE 85(L) 98 - 107 mmol/L 03/24/2024 12:26 PM [employer] [facility] CO2, VENOUS 33(H) 22 - 30 mmol/L 03/24/2024 12:26 PM [facility] ANION GAP 15.1 <18.0 mmol/L 03/24/2024 12:26 PM [facility] GLUCOSE 107(H) 70 - 99 mg/dL 03/24/2024 12:26 PM [facility] BUN 15 8 - 26 mg/dL 03/24/2024 12:26 PM [facility] CREATININE, BLOOD 0.83 0.70 - 1.30 mg/dL 03/24/2024 12:26 PM [facility] BUN/CREATININE RATIO 18 12 - 20 ratio 03/24/2024 12:26 PM [facility] TOTAL PROTEIN 7.2 6.3 - 8.2 g/dL 03/24/2024 12:26 PM [facility] ALBUMIN 3.5 3.5 - 5.0 g/dL 03/24/2024 12:26 PM [facility] A/G RATIO 0.9(L) 1.0 - 2.2 03/24/2024 12:26 PM [facility] CALCIUM 9.3 8.7 - 10.5 mg/dL 03/24/2024 12:26 PM [facility] T BILI 1.1 0.2 - 1.2 mg/dL 03/24/2024 12:26 PM [facility] SGOT (AST) 30 5 - 34 U/L 03/24/2024 12:26 PM [facility] SGPT (ALT) 17 0 - 55 U/L 03/24/2024 12:26 PM [facility] ALKALINE PHOSPHATASE 85 40 - 150 U/L 03/24/2024 12:26 PM [facility] GFR, ESTIMATED >60 >=60 03/24/2024 12:26 PM [facility] Comment: Creatinine Clearance is the preferred criteria for selecting drug dose adjustments in renally impaired patients. ??The GFR is provided as additional pertinent clinical information. GFR is reported in mL/min/1.73 sq m. Calculation based on the Chronic Kidney Disease Epidemiology Collaboration (CKD- EPI) equation refit without adjustment for race. GFR, EST. >60 >=60 025 12:26 PM [employer] [facility] GFR, EST. NONAFRICAN >60 >=60 03/24/2024 12:26 PM [employer] [facility] Blood Venipuncture / Unknown 03/24/2024 11:45 AM [employer] 03/24/2024 12:04 PM [employer] us Silvana Fischer APRN, [employer] CHEMISTRY ORDERABLES Final Result [facility] [address] [place] [address] * (ABNORMAL) B-Type Natriuretic Peptide (BNP) (03/24/2024 11:45 AM [employer]) B TYPE NATRIURETIC PEPTIDE 1,045(H) <100 pg/mL 03/24/2024 12:21 PM [employer] [facility] Blood Venipuncture / Unknown 03/24/2024 11:45 AM [employer] 03/24/2024 12:04 PM [employer] us Silvana Fischer APRN, [employer] CHEMISTRY ORDERABLES Final Result Performing Organization Address City/[facility]/ZIP Co de Phone Number [facility] [place] [address] * Critical Care (03/24/2024 11:26 AM [employer]) Narrative Blu Richmond MD - 03/24/2024 11:26 AM [employer] Silvana Fischer APRN, CNP ? 03/24/2024 ??1:36 PM Critical Care Performed by: Silvana Fischer APRN [employer] Authorized by: Silvana Fischer APRN, [employer] ?? Critical care provider statement: ??Critical care [...] admitting provider ?? us Silvana Fischer APRN, [employer] PROCEDURE/MINOR SURGI SYD ORDERABLES Final Result * EKG SCAN (03/24/2024 12:00 AM [employer]) Only the most recent of2 resultswithin the time period is included. 03/24/2024 us Provider Scan IMG ECG ORDERABLES Final Result Performing Organization Address [facility] de Phone Number RESULTING AGENCY * CARDIOLOGY CONSULT (03/19/2024 12:00 AM [employer]) 03/19/2024 us Provider Scan GENERIC SCAN ORDERS CONSULT Haylie l Result Performing Organization Address City/[facility] Co de Phone Number SCAN * ECHOCARDIOGRAM MISCELLANEOUS (03/18/2024 12:00 AM [employer]) LV EF(estimated)% 63 RESULTING AGENCY 03/18/2024 us Provider Scan IMG ECHO ORDERABLES Final Result Performing Organization Address [facility] Co de Phone Number RESULTING AGENCY from Last 3 Months Insurance MEDICARE C [employer] Advance Directives * Full Code (Latest Code Status on File) Date Activated Date Inactivated Comments 03/24/2024 3:48 PM CPR-Full Treat ment: FULL ARREST: Attempt Resuscitation/CPR wit intubation and mechanical ventilation. PRE-ARREST: Use entire range of life support measures to stabilize the patient. Care Teams Demurrage Clerk Relationship Specialty Start Date End Date Tal Olsen MD [address] [place] [address] PCP - General Internal Medicine 03/24/24 Faizan Yadav MD [address] [place] [address] Consulting Physician Pulmonary Disease 04/10/24
--- OUTSIDE RECORDS SUMMARY | 2024-04-18 12:20 | XMS_ITS | CONTINUITY OF CARE DOCUMENT ---
Author Name millicent ricks Address Unknown Organization [facility] Address [address] [place] [address] Phone [phone] Care Team Providers Care Oil Paint Shader Name Role Phone Sonu Goodwin MD Unavailable [phone] Sonu Goodwin MD Unavailable [phone] INSURANCE PROVIDERS Payer name Policy type / Coverage type Fabio red green party ID [employer] MEDICARE Commercial insurance company 1 [id number]
--- OUTSIDE RECORDS SUMMARY | 2024-04-18 12:20 | XMS_ITS | Clinical Summary ---
Author Organization [facility] Address [facility] [place], [place] [address] [place] [address] Care Team Providers Care Tree Trimmer Helper Name Role Phone Unavailable Primary Care [...] season) 2023 Influenza Adult (#1) 2023 Meningococcal B Vaccine Aged Out No l onger eligible based on patient's age to complete this topic Meningococcal Vaccine Aged Out No beena jeff eligible based on patient's age to complete this topic RSV Immunizations Under 20 Months Aged Out No longer eligible based on patient's age to complete this topic
[2024-04-18 13:09] LABS: Sodium 138 mmol/L (137-145)
== END 2024-04-18 12:16 | disposition home or self-care (01) ==
PROVIDERS: PCP Emergency Medicine; Visit Provider Emergency Medicine
DX: R79.89 Other specified abnormal findings of blood chemistry (principal)
CPT/HCPCS: 36415; 84295

== ENCOUNTER 2024-11-28 07:44 | Outpatient (CLI) | payer MEDICARE, SELFPAY ==
[2024-11-28 08:37] LABS: Hemoglobin A1C 6.4 % (<5.7)
[2024-11-28 08:49] LABS: Alanine Aminotransferase 15 U/L (6-50); Albumin Level 4.2 g/dL (3.5-5.1); Alkaline Phosphatase 79 U/L (38-126); Anion Gap 9 mmol/L (4-12); Aspartate Amino Transferase 29 U/L (17-59); Bilirubin,Total 1.2 mg/dL (0.2-1.3); Blood Urea Nitrogen 19 mg/dL (9-20); Calcium 9.8 mg/dL (8.4-10.2); Carbon Dioxide 32 mmol/L (22-30); Chloride 96 mmol/L (98-107); Cholesterol 122 mg/dL (0-200); Estimated Glomerular Filt Rate > 60; Glucose 104 mg/dL (65-110); HDL Direct 44 mg/dL; Potassium 5.3 mmol/L (3.4-5.0); Sodium 137 mmol/L (137-145); Total Protein 7.9 g/dL (6.3-8.2); Triglycerides 52 mg/dL (<150)
[2024-11-28 09:32] LABS: MALB Creatinine Ratio 269.1 mg/g (0-30)
== END 2024-11-28 07:45 | disposition home or self-care (01) ==
PROVIDERS: PCP Emergency Medicine; Visit Provider Emergency Medicine
DX: E78.5 Hyperlipidemia, unspecified (principal); E11.9 Type 2 diabetes mellitus without complications; E55.9 Vitamin D deficiency, unspecified
CPT/HCPCS: 36415; 80053; 80061; 82043; 82306; 83036

== ENCOUNTER 2024-12-18 10:58 | Outpatient (CLI) | payer MEDICARE, SELFPAY ==
[2024-12-18 12:29] LABS: Potassium 4.4 mmol/L (3.4-5.0)
--- OUTSIDE RECORDS SUMMARY | 2024-12-18 12:45 | XMS_ITS | Clinical Summary ---
Author Organization [facility] Address [address] [place] [address] Phone Care Team Providers Care Balance Wheel Motion Inspector Name Role Phone Tal Olsen MD Primary Care Provider [phone] Faizan Yadav MD Unavailable Allergies Active Allergy Reactions Criticality Noted Date Comments Ibuprofen Other (see Comments) 03/24/2024 Stomach upset Lisinopril Swelling 03/24/2024 Swelling of airway Medications Cholecalciferol 50 mcg Tablet Take 50 mcg by mouth daily. Active vitamin b-12 (CYANOCOBALAMIN ) 500 MCG TabletIndicatio ns:Vitamin B12 Deficiency Take 500 mcg by mouth [...] Take 20 mg by mouth daily. Active spironolactone (ALDACTONE) 25 MG Tablet Take 0.5 Tablets by mouth daily. 45 Tablet 2 Active furosemide (Lasix) 40 MG Tablet Take 1 Tablet by mouth 2 times daily (with meals). 90 Tablet Active metoprolol Succinate (TOPROL-XL) 100 MG TABLET SR 24 HR Take 1 Tablet by mouth daily. 90 Tablet Active polyethylene glycol (GLYCOLAX, MIRALAX) 17 g PackIndications :Constipation Take 1 Packet by mouth 2 times daily as needed for Constipation - 1st line. Dissolve in 4-8 oz of liquid. Indications: Constipation Active potassium chloride SA (KLORCON M) 20 MEQ Tablet Controlled Release Take 1 Tablet by mouth 2 times daily (with meals). 90 Tablet 5 Active Active Problems Problem Noted Date Diagnosed Date Volume overload state of heart 09/01/2024 COPD exacerbation 09/01/2024 Hydropneumothorax 09/01/2024 Pleural effusion on right 09/01/2024 Atrial fibrillation with RVR 09/01/2024 Type 2 diabetes mellitus 09/01/2024 Chronic indwelling Gan catheter 09/01/2024 Pulmonary HTN 04/10/2024 Hypomagnesemia 03/28/2024 Acute on chronic diastolic heart failure 025 Chronic atrial fibrillation 03/24/2024 COPD (chronic obstructive pulmonary disease) 12/2024 Hyponatremia 03/24/2024 Congestive heart failure (CHF) Diabetes mellitus Hypertension Resolved Problems Problem Noted Date Diagnosed Date Resolved Date Acute exacerbation of CHF (c ongestive heart failure) 03/24/2024 04/10/2024 Encounters Date Type Department Care Team Description 10/13/2024 2:31 PM CDT - 10/13/2024 3:46 PM CDT Emergency [facility] Emergency [address] [place] [address] Bassem Lee MD Keen, Anais Aiken APRN, OPTICAL GLASS WET INSPECTOR Encounter for urinary catheter Discharge Disposition: Discharged to home or Selfcare 10/13/2024 Travel from Last 3 Months Social History Tobacco Use Types Packs/Day Years Used Date Smoking Tobacco: Former Cigarettes Smokeless Tobacco: Never Tobacco Cessation:Counseling Given: No Alcohol Use Standard Drinks/Week Comments Not Currently 0 (1 standard drink = 0.6 oz pur e alcohol) Social Connection and Isolation Panel Answer Date Recorded In a typical week, how many times do you talk on the phone with family, friends, or neighbors? Patient declined 03/24/2024 How often do you get togethe r with friends or relatives? Patient declined 03/24/2024 How often do you attend oriental orthodox or anabaptist serv ices? Patient declined 03/24/2024 Do you belong to any clubs o r organizations such as oriental orthodox groups, [employer], [employer] or [employer] groups, or school groups? Patient declined 03/24/2024 How often do you attend meet ings of the clubs or organizations you belong to? Patient declined 03/24/2024 Are you , , di vorced, , never , or living with a partner? Patient declined 03/24/2024 Housing Stability Vital Sign [...] any time in the past 12 m [facility], were you homeless or living in a alf (including now)? Patient declined 03/24/2024 Social Connection and Isolation Panel Answer Date Recorded In a typical week, how many times do you talk on the phone with family, friends, or neighbors? Patient declined 09/01/2024 How often do you get togethe r with friends or relatives? Patient declined 09/01/2024 How often do you attend oriental orthodox or anabaptist serv ices? Patient declined 09/01/2024 Do you belong to any clubs o r organizations such as oriental orthodox groups, [employer], [employer] or [employer] groups, or school groups? Patient declined 09/01/2024 How often do you attend meet ings of the clubs or organizations you belong to? Patient declined 09/01/2024 Are you , , di vorced, , never , or living with a partner? Patient declined 09/01/2024 AUDIT-C Answer Date Recorded Q1: How often do you have a drink containing alc ohol? Patient declined 09/01/2024 Q2: How many drinks containi ng alcohol do you have on a typical day when you are drinking? Patient declined 09/01/2024 Q3: How often do you have si x or more drinks on one occasion? Patient declined 09/01/2024 Overall Financial Resource Strain (CARDIA) Answe r Date Recorded How hard is it for you to pa y for the very basics like food, housing, medical care, and heating? Patient declined 09/01/2024 [facility] - Occupational Stress Questionnaire Answer Date Recorded Do you feel stress - tense, restless, nervous, or anxious, or unable to sleep at night because your mind is troubled all the time - these days? Patient declined 09/01/2024 Exercise Vital Sign Answer Date Recorde d On average, how many days pe r week do you engage in moderate to strenuous exercise (like a brisk walk)? Patient declined On average, how many minutes do you engage in exercise at this level? Patient declined 09/01/2024 Hunger Vital Sign Answer Date Recorded Within the past 12 months, y ou worried that your food would run out before you got the money to buy more. Patient declined Within the past 12 months, t he food you bought just didn't last and you didn't have money to get more. Patient declined PRAPARE - Transportation Answer Date Re corded In the past 12 months, has l ack of transportation kept you from medical appointments or from getting medications? Patient declined 09/01/2024 In the past 12 months, has l ack of transportation kept you from meetings, work, or from getting things needed for daily living? Patient declined 09/01/2024 Housing Stability Vital Sign Answer Maldonado e Recorded In the last 12 months, was t here a time when you were not able to pay the mortgage or rent on time? Patient declined 09/02/19 25 In the past 12 months, how m any times have you moved where you were living? 1 09/01/2024 At any time in the past 12 m [facility], were you homeless or living in a alf (including now)? Patient declined 09/01/2024 [facility] Utilities Answer Date Recorded In the past 12 months has th e electric, gas, oil, or water company threatened to shut off services in your home? 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 [employer] Gender Identity Not on file Sexual Orientation Not on file Last Filed Vital Signs Vital Sign Reading Time Taken Comments Blood Pressure 141/87 10/13/2024 2:38 PM CDT Pulse 114 10/13/2024 2:38 PM CDT Temperature 36.1 C (96.9 F) 10/13/2024 2:38 PM CDT Respiratory Rate 16 10/13/2024 2:38 PM CDT Oxygen Saturation 100% 10/13/2024 2:38 PM CDT Inhaled Oxygen Concentration - - Weight 72.6 kg (160 lb) 10/13/2024 2:38 PM CDT Height 172.7 cm (5' 8) 10/13/2024 2:38 PM CDT Body Mass Index 24.33 10/13/2024 2:38 PM CDT Plan of Treatment Health Maintenance Due Date Last Done Comments Diabetes: Eye Exam 1944 Diabetes: Foot Exam 1945 Hepatitis C Virus (HCV) Screening 1945 TdaP Immunization 1945 Pneumococcal Immunization (5 0+ years) (1 of 2 - PCV) 07/27/1963 Zoster Immunization (1 of 2) 1994 Respiratory Syncytial Virus (RSV) Immunization (Adult) (1 - 1-dose 75+ series) 07/27/2019 Medicare Initial AWV [id number] 03/15/2024 Influenza Immunization (#1) 2024 SARS-COV-2 Immunization ( season) 2024 01/27/2021, 12/20/2020 Diabetes: Hemoglobin A1c 03/04/2025 09/02/2024 Diabetes: Nephropathy Screening 09/01/2025 09/01/2024, 03/24/2024 Hepatitis B Immunization Aged Out No longer eligible based on patient's age to complete this topic Human Papillomavirus (HPV) Immunization Aged Out No longer eligible b ased on patient's age to complete this topic Meningococcal Immunization (ACWY) Aged Out No longer eligible b ased on patient's age to complete this topic Rotavirus Immunization Aged Out No lo nger eligible based on patient's age to complete this topic Procedures Procedure Name Priority Date/Time Associated Diagnosis Comments HEMOGLOBIN A1C W/ ESTIMATED GLUCOSE Routine 09/02/2024 4:39 AM CDT CMP (COMPREHENSIVE METABOLIC PANEL) STAT 09/01/2024 11:14 AM CDT from Last 3 Months or Most Recently Relevant to Health Maintenance Results * (ABNORMAL) Hemoglobin A1C (if indicated) (09/02/2024 4:39 AM CDT) HGB-A1C 6.1(H) 4.0 - 6.0 % 09/02/2024 5:50 AM CDT [facility] Est Average Glucose 128.4 mg/dL 09/02/2024 5:50 AM CDT [facility] Blood Venipuncture / Unknown 09/02/2024 4:39 AM CDT 09/02/2024 5:33 AM CDT Narrative [facility] - 09/02/2024 5:50 AM CDT HEMOGLOBIN A1C: DIABETIC PATIENTS: WELL-CONTROLLED: 6.2 - 7.0 INTERMEDIATE WELL-CONTROLLED: 7.0 - 9.0 POORLY-CONTROLLED: >9.0 Specimens containing greater than 5% of Hemoglobin F may result in lower than expected % HbA1C results. us Mere Bowen NET APPLICATION ARCHITECT, OPTICAL GLASS WET INSPECTOR CHEMISTRY ORDERABLES Final Result [facility] [address] [place] [address] * (ABNORMAL) CMP (Comprehensive Metabolic Panel) (09/01/2024 11:14 AM CDT) SODIUM 132(L) 136 - 145 mmol/L 09/01/2024 11:54 AM CDT [facility] POTASSIUM 4.5 3.5 - 5.1 mmol/L 09/01/2024 11:54 AM CDT [facility] CHLORIDE 94(L) 98 - 107 mmol/L 09/01/2024 11:54 AM CDT [facility] CO2, VENOUS 28 22 - 30 mmol/L 09/01/2024 11:54 AM T [facility] ANION GAP 14.5 <18.0 mmol/L 09/01/2024 11:54 AM T [facility] GLUCOSE 123(H) 70 - 99 mg/dL 09/01/2024 11:54 AM T [facility] BUN 20 8 - 26 mg/dL 09/01/2024 11:54 AM T [facility] CREATININE, BLOOD 0.87 0.70 - 1.30 mg/dL 09/01/2024 11:54 AM T [facility] BUN/CREATININE RATIO 23(H) 12 - 20 ratio 09/01/2024 11:54 AM T [facility] TOTAL PROTEIN 7.5 6.0 - 8.0 g/dL 09/01/2024 11:54 AM T [facility] ALBUMIN 3.8 3.5 - 5.0 g/dL 09/01/2024 11:54 AM T [facility] A/G RATIO 1.0 1.0 - 2.2 09/01/2024 11:54 AM T [facility] CALCIUM 9.3 8.7 - 10.5 mg/dL 09/01/2024 11:54 AM [facility] T BILI 1.2 0.2 - 1.2 mg/dL 09/01/2024 11:54 AM [facility] SGOT (AST) 35 <43 U/L 09/01/2024 11:54 AM T [facility] SGPT (ALT) 17 <56 U/L 09/01/2024 11:54 AM [facility] ALKALINE PHOSPHATASE 74 40 - 150 U/L 09/01/2024 11:54 AM [facility] GFR, ESTIMATED >60 >=60 09/01/2024 11:54 AM [facility] Comment: Creatinine Clearance is the preferred criteria for selecting drug dose adjustments in renally impaired patients. The GFR is provided as additional pertinent clinical information. GFR is reported in mL/min/1.73 sq m. Calculation based on the Chronic Kidney Disease Epidemiology Collaboration (CKD- EPI) equation refit without adjustment for race. GFR, EST. >60 >=60 025 11:54 AM CDT [facility] GFR, EST. NONAFRICAN >60 >=60 09/01/2024 11:54 AM CDT [facility] Blood Venipuncture / Unknown 09/01/2024 11:14 AM CDT 09/01/2024 11:25 AM CDT us Bassem Lee MD CHEMISTRY ORDERABLES Haylie sandra Result [facility] [address] [place] [address] from Last 3 Months or Most Recently Relevant to Health Maintenance Insurance MEDICARE C [employer] Advance Directives * Full Code (Latest Code Status on File) Date Activated Date Inactivated Comments 09/01/2024 5:11 PM CPR-Full Treat ment: FULL ARREST: Attempt Resuscitation/CPR wit intubation and mechanical ventilation. PRE-ARREST: Use entire range of life support measures to stabilize the patient. * Full Code Date Activated Date Inactivated Comments 03/24/2024 3:48 PM 09/01/2024 5:11 PM CPR-Full Francis atment: FULL ARREST: Attempt Resuscitation/CPR wit intubation and mechanical ventilation. PRE-ARREST: Use entire range of life support measures to stabilize the patient. Care Teams Balance Wheel Motion Inspector Relationship Specialty Start Date End Date Tal Olsen MD [address] [place] [address] PCP - General Internal Medicine 03/24/24 Faizan Yadav MD [address] [place] [address] Consulting Physician Pulmonary Disease 04/10/24
--- OUTSIDE RECORDS SUMMARY | 2024-12-18 12:45 | XMS_ITS | Clinical Summary ---
Author Organization [facility] Address [address] [place] [address] Care Team Providers Care Air Gun Operator Name Role Phone Unavailable Primary Care Provider Unavailabl e Social History Tobacco Use Types Packs/Day Years Used Date Smoking Tobacco: Never Assessed Sex and Gender Information Value Date Recorded Sex Assigned at Not on file Legal Sex Male 4:20 PM CDT Gender Identity Not on file Sexual Orientation Not on file Plan of Treatment Health Maintenance Due Date Last Done Comments DTaP, Tdap and Td Vaccines ( 1 - Tdap) 07/27/1963 Pneumococcal Vaccine: 50+ Ye ars (1 of 1 - PCV) 1994 Zoster Vaccines (1 of 2) 1994 RSV Immunization or 60+ Years (1 - 1-dose 75+ series) 07/27/2019 COVID-19 Vaccine ( - 2023-2 5 season) 2024 Meningococcal B Vaccine Aged Out No l onger eligible based on patient's age to complete this topic Meningococcal Vaccine Aged Out No beena jeff eligible based on patient's age to complete this topic RSV Immunizations Under 20 Months Aged Out No longer eligible based on patient's age to complete this topic
== END 2024-12-18 10:59 | disposition home or self-care (01) ==
LOC: ANHLAB 11:02
PROVIDERS: PCP Emergency Medicine; Visit Provider Emergency Medicine
DX: E87.6 Hypokalemia (principal)
CPT/HCPCS: 36415; 84132